=== PATIENT | male | born 1975 | race American Indian/Alaskan Native ===

== ENCOUNTER 2018-08-31 10:26 | Day surgery (SDC) | payer MEDICARE, MEDICAID, SELFPAY ==
[2018-08-31 10:27] VITALS: BP 126/77; PULSE 92; RESP 18; TEMP 36.6; O2SAT 99
--- NOTE | 2018-08-31 10:37 | DI.RAD_ITS ---
SYMPTOMS/DIAGNOSIS: HAND CAUGHT IN SNOWBLOWER RIGHT HAND: Three views. There is a comminuted nondisplaced fracture involving the distal aspect of the distal phalanx of the right index finger. There is a comminuted markedly displaced fracture involving the right middle finger. The fracture involves the head of the middle phalanx, which is nondisplaced. The fracture appears to extend into the distal interphalangeal joint and there is marked comminution and displacement of the osseous fragments of the distal phalanx. The fracture does appear to be open on the dorsal aspect of the distal finger. There is a comminuted fracture of the terminal tuft of the right ring finger. There is a question of an open component of the fracture on the dorsal aspect of the distal ring finger. There is soft tissue swelling of the index, middle and ring fingers. No other fractures or dislocations are appreciated. IMPRESSION: 1. Comminuted intraarticular fracture involving the middle phalanx and distal phalanx of the right middle finger. The fracture appears to be open. 2. Comminuted fracture involving the terminal tuft of the right ring finger with marked displacement. 3. Nondisplaced comminuted fracture of the terminal tuft of the right index finger.
--- NOTE | 2018-08-31 10:39 | ED.GENADUL_ITS ---
Discharge Plan Disposition Patient Disposition: OTHER Condition: Stable Discharge Details Chief Complaint: Laceration Clinical Impression: Open displaced fracture of distal phalanx of right middle finger Primary Care Provider: Brian Longo ED Provider: Jian Campuzano Home Meds and New Rx's Prescriptions: No Action nebulizer and compressor [Comp-Air Elite Comp Neb System] 1 EACH device 1 ea Miscellaneous q 4 h prn Qty: 1 RF: 0 sertraline 50 MG tablet 100 mg PO DAILY Qty: 180 RF: 3 atorvastatin 40 MG tablet 40 mg PO DAILY Qty: 90 RF: 3 pantoprazole 40 MG tablet,delayed release (DR/EC) 1 tab PO BID Qty: 180 RF: 3 ezetimibe [Zetia] 10 MG tablet 1 tab PO DAILY Qty: 90 RF: 3 albuterol sulfate 1.25 MG/3 ML solution for nebulization 1.25 mg Inhalation q 4 h PRNQty: 50 RF: 1 albuterol sulfate [ProAir HFA] 200 PUFF HFA aerosol inhaler 200 puff Inhalation Q6H PRN PRNQty: 1 RF: 0 budesonide-formoterol [Symbicort] 10.2 GM HFA aerosol inhaler 1 puff Inhalation BID Qty: 1 RF: 5 ipratropium-albuterol 3 ML solution for nebulization 1 vial PO Q4H PRNQty: 50 RF: 3 Medical Decision Making 43 yo male was using his snowblower cleaning the top when his right hand went into the spinning blades. He is in quite a bit of pain to perform thorough exam initially, will place digital block of the right middle and index fingers which are the only ones involved and get xray and reeval. pt has extensive injury distal to the pip joint of the ring and middle finger and can't move at the dip joint, has bone visible in both. Xray confirms fx. Will give ceftriaxone given pcn allergy don't woant to give first gen cephalosporin and consult ortho Dr. Schofield evaluated and plan to go to the OR for amputation and likely d/c after this Differential Diagnosis fracture, amputation HPI General Mode of arrival: EMS . Date/Time Provider Initiated Documentation: 08/31/18 10:37 . Limitations to Documentation: no limitations . Information obtained by: patient . History of Present Illness 43 year old M presents to the emergency department with the chief complaint of right hand pain s/p snowblower injury, described as severe, with intensity rated at 10. Quality is described as aching, and is localized to the right and upper extremity. Patient reports no radiation. Patient started experiencing this minute(s) (40) and it has been constant. No relieving factors improve symptom(s), No exacerbating factors reported . Patient notes no other symptoms.. Related Data Home Medications Medication Instructions Recorded Confirmed nebulizer and compressor [Comp-Air #1 ea 07/16/16 08/31/18 Elite Comp Neb System] sertraline 100 mg PO DAILY #180 tab-cap 08/10/17 08/31/18 atorvastatin 40 mg PO DAILY #90 tab-cap 10/07/17 08/31/18 ezetimibe [Zetia] 1 tab PO DAILY #90 tab-cap 10/07/17 08/31/18 pantoprazole 1 tab PO BID #180 tab-cap 10/07/17 08/31/18 albuterol sulfate 1.25 mg INHALATION q 4 h PRN #50 03/17/18 08/31/18 vial albuterol sulfate [Proair Hfa] 200 puff INHALATION Q6H PRN PRN #1 03/17/1808/31 inh budesonide-formoterol [Symbicort 1 puff INHALATION BID #1 inhaler 03/17/1808/31 80/4.5 Mcg Inhaler] ipratropium-albuterol 1 vial PO Q4H PRN #50 vial 03/19/18 08/31/18 Previous Rx's Medication Instructions Recorded sertraline 100 mg PO DAILY #180 tab-cap 08/10/17 atorvastatin 40 mg PO DAILY #90 tab-cap 10/07/17 ezetimibe [Zetia] 1 tab PO DAILY #90 tab-cap 10/07/17 pantoprazole 1 tab PO BID #180 tab-cap 10/07/17 budesonide-formoterol [Symbicort 1 puff INHALATION BID #1 inhaler 03/17/18 80/4.5 Mcg Inhaler] Allergies Allergy/AdvReac Type Severity Reaction Status Date / Time Fish Containing Products Allergy Intermediate hives Unverified 08/31/18 10:31 Penicillins Allergy Mild Skin Rash Unverified 08/31/18 10:31 aspirin AdvReac Intermediate epistaxis Unverified 08/31/18 10:31 seafood Allergy Intermediate Hives Uncoded 08/31/18 10:31 General Stated Complaint: Laceration DONG: 2 Review of Systems Review of Systems All systems reviewed & are unremarkable except as noted in HPI and below Constitutional Denies chills, Denies fever(s) and Denies weakness ENT Denies change in voice Cardiovascular Denies chest pain and Denies dyspnea Respiratory Denies dyspnea Gastrointestinal Denies abdominal pain, Denies nausea and Denies vomiting Genitourinary Denies dysuria Musculoskeletal Denies joint swelling Integumentary/Breasts Denies rash Neurologic Denies weakness Allergic/Immunologic Denies urticaria PFSH Family History Father Alcohol abuse Essential hypertension Heart disease Neoplasm Cerebrovascular accident Mother Essential hypertension COPD (chronic obstructive pulmonary disease) Depression Hyperlipidemia Neoplasm Cerebrovascular accident Asthma SIBLING ADHD (attention deficit hyperactivity disorder) Sister No problems noted. Brother Essential hypertension Grandfather Diabetes Alcohol abuse Grandfather Brain tumor Cerebrovascular accident Grandmother Diabetes Grandmother Heart disease Neoplasm Cerebrovascular accident Family History Blood disorder Neoplasm Medical History Arthritis Asthma Depression with anxiety GERD (gastroesophageal reflux disease) Hyperlipidemia tobacco abuse Social History Smoking/Tobacco Use Status: Current every day Surgical History BARIUM SWALLOW Excision, Skin Mass Fracture, Closed Treatment NECK SURGERY Open Carpal Tunnel release SPINE SURGERY Exam Const General: no acute distress Orientation: alert [facility] Head: normal to inspection Ears: external ears normal General nose exam: external nose normal Mouth: moist mucous membranes Eyes General: appearance normal, both eyes and all related structures Neck Neck: normal visual inspection Resp Effort & Inspection: normal respiratory effort and able to speak in complete sentences Cardio Rate: regular rate Skin General skin exam: no rashes or lesions noted Neuro General: alert and oriented x3 Psych Mental Status: mental status grossly normal Course Vital Signs Temperature 36.6 C 08/31/18 10:27 Pulse 92 H 08/31/18 10:27 Respiratory Rate 18 08/31/18 10:27 Blood Pressure 126/77 08/31/18 10:27 Pulse Oximetry 99 08/31/18 10:27 Temperature 36.6 C 08/31/18 10:27 Temperature Source Temporal Artery Scan 08/31/18 10:27 Pulse 92 H 08/31/18 10:27 Respiratory Rate 18 08/31/18 10:27 Respiratory Effort Non-Labored 08/31/18 10:30 Blood Pressure 126/77 08/31/18 10:27 Blood Pressure Position Sitting 08/31/18 10:27 Pulse Oximetry 99 08/31/18 10:27 Oxygen Delivery Method Room Air 08/31/18 10:27 Oxygen Flow Rate 0 08/31/18 10:27 Pain Level 10 08/31/18 10:27
[2018-08-31] MEDS: fentaNYL 100 MCG/2 ML VIAL (10:40)
[2018-08-31 11:23] LABS: Abs Immature Grans 0.01 k/cumm (0.0-0.09); Absolute Basophil Count 0.01 k/cumm (0.0-0.2); Absolute Eosinophil Count 0.05 k/cumm (0.0-0.7); Absolute Lymphocyte Count 2.53 k/cumm (1.2-3.4); Absolute Monocyte Count 0.71 k/cumm (0.11-0.7); Absolute Neutrophil Count 1.94 k/cumm (1.2-6.7); Basophils % 0.2; HCT 45.3 % (40.0-50.0); HGB 15.2 g/dL (13.5-17.5); Immature Grans % 0.2; Lymphocytes % 48.2; Mean Corp. HGB Concentration 33.6 g/dL (32.0-36.0); Mean Corpuscular Hemoglobin 27.8 pg (27.0-33.0); Mean Corpuscular Volume 82.8 fL (80-95); Mean Platelet Volume 9.6 fL (8.0-11.0); Monocytes % 13.5; Neutrophils % 36.9; Platelet Count 187 x1000/uL (130-400); RBC 5.47 m/cumm (4.50-6.00); RBC Distribution Width 14.8 % (11.8-14.1); White Blood Cell Count 5.25 k/cumm (4.4-10.8)
[2018-08-31 11:34] LABS: ALT 41 U/L (12-78); AST 27 U/L (15-37); Albumin 3.6 g/dL (3.4-5.0); Alkaline Phosphatase 95 U/L (46-116); Anion Gap 6.5 mmol/L (3-11); BUN 9 mg/dL (7-18); CO2 29.5 mmol/L (21.0-32.0); CREATININE 0.85 mg/dL (0.70-1.30); Calcium 8.9 mg/dL (8.5-10.1); Chloride 103 mmol/L (98-107); Glucose 111 mg/dL (70-100); Potassium 3.9 mmol/L (3.5-5.1); Sodium 139 mmol/L (136-145); Total Protein 6.9 g/dL (6.4-8.2)
[2018-08-31 11:37] LABS: INR 1.1 (1.0-3.5); PTT Activated 24.1 sec (21.0-31.4); Prothrombin Time 10.4 sec (9.3-10.8)
[2018-08-31 13:15] VITALS: BP 111/46; PULSE 72; RESP 16; TEMP 36.9; O2SAT 94
[2018-08-31] MEDS: Normal Saline Flush 10 ML SYR ×3 (13:27→14:39)
[2018-08-31 13:31] VITALS: BP 111/51; PULSE 68; RESP 18; TEMP 37.4; O2SAT 95
[2018-08-31] MEDS: Lactated Ringers 1,000 ML 30 ML IV (13:45)
--- NOTE | 2018-08-31 14:01 | W.PM.DSUDISC ---
Discharge Plan Disposition Patient Disposition: HOME Condition: Stable Discharge Details Chief Complaint: Laceration Reason For Visit: Revision amputation of RRF and RMF Attending Provider: Arcenio Schofield Primary Care Provider: Brian Longo ED Provider: Jian Campuzano Home Meds and New Rx's Prescriptions: New ibuprofen 600 mg tablet 600 mg PO TID PRNQty: 90 RF: 3 acetaminophen 500 mg capsule 1,000 mg PO Q8H PRN (Reason: pain) Qty: 90 RF: 0 oxycodone 5 mg tablet 5 mg PO Q6H PRN PRNQty: 10 RF: 0 Continue nebulizer and compressor [Comp-Air Elite Comp Neb System] 1 EACH device 1 ea Miscellaneous q 4 h prn Qty: 1 RF: 0 sertraline 50 MG tablet 100 mg PO DAILY Qty: 180 RF: 3 atorvastatin 40 MG tablet 40 mg PO DAILY Qty: 90 RF: 3 pantoprazole 40 MG tablet,delayed release (DR/EC) 1 tab PO BID Qty: 180 RF: 3 ezetimibe [Zetia] 10 MG tablet 1 tab PO DAILY Qty: 90 RF: 3 albuterol sulfate 1.25 MG/3 ML solution for nebulization 1.25 mg Inhalation q 4 h PRNQty: 50 RF: 1 albuterol sulfate [ProAir HFA] 200 PUFF HFA aerosol inhaler 200 puff Inhalation Q6H PRN PRNQty: 1 RF: 0 budesonide-formoterol [Symbicort] 10.2 GM HFA aerosol inhaler 1 puff Inhalation BID Qty: 1 RF: 5 ipratropium-albuterol 3 ML solution for nebulization 1 vial PO Q4H PRNQty: 50 RF: 3 Discharge Instructions Additional Instructions: Activity: Keep the hand elevated as much as possible. You may use your other fingers but you should rest the operative fingers, middle and ring. Dressings: Keep the dressings clean and dry. Do NOT remove. Medications: - You should use Tylenol and Ibuprofen for baseline pain control. - You have Oxycodone for breakthrough pain. - You may use ice over the dressing, just do not get it wet. - Take Keflex 500mg four times a day for 2 days. 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
[2018-08-31] MEDS: Ketorolac 15 MG/ML VIAL IVP (14:27)
[2018-08-31] MEDS: Acetaminophen 500 MG TAB 1000 MG PO (14:28)
--- NOTE | 2018-08-31 15:48 | NUR.NOTE ---
Nursing Note: 1438 - vs 36.6, 100/49, 67, 15 94%, medicated w/4mg morphine 8/10 pain. Pt denies any nausea. Continue to monitor, callbell in reach and spouse present.
[2018-08-31] MEDS: Bupivacaine 0.25% Pres-Free 30 ML VIAL (16:37)
[2018-08-31 18:00] VITALS: BP 104/56; PULSE 71; RESP 18; TEMP 35.5; O2SAT 100
--- NOTE | 2018-09-01 07:30 | OCONE_ITS ---
Date of service: 08/31/18 Time of Service: 11:20 History of Present Illness Chief Complaint: Right ring finger and right middle finger injury Narrative: Cole is a 43-year-old who is operating a snowblower earlier today. 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 He had a complete laceration of both fingertips. Pain of the right index finger as well. He was seen in the emergency department and diagnosed with near complete amputations of the ring finger and middle finger along with a fracture of the distal phalanx of the index finger. I was called in consultation by Dr. Campuzano. He reports significant pain of the middle and ring fingers primarily and some pain of the distal aspect of the index finger. He is a heavy smoker. 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 He merely wash his hands after the incident. He denies having any gross contamination to the wounds. 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 It sometimes needs some basic splinting for short period time but otherwise can start gentle range of motion, obviously will be limited by the other fingers. As for the middle and ring fingers. I do not think they are truly salvageable. There is a small pedicle of the middle finger but there is a complex fracture of the middle phalanx. Given his smoking and his occupation I do not think it is a salvageable finger. I reviewed treatment options with Cole and he agrees he would prefer to proceed with revision amputation. I discussed the technical complications. I also discussed the approximate level of amputation. I reviewed the technical details including risk which were not limited to bleeding , infection, pain, stiffness, weakness. Despite these risk, he elects to proceed. He received a dose of antibodies here in the emergency room. He will also receive antibiotics after the surgery and on discharge. We will proceed to the operating room this afternoon. He will stay n.p.o. Review of Systems Review of Systems All systems reviewed & are unremarkable except as noted in HPI and below PFSH Family History Father Alcohol abuse Essential hypertension Heart disease Neoplasm Cerebrovascular accident Mother Essential hypertension COPD (chronic obstructive pulmonary disease) Depression Hyperlipidemia Neoplasm Cerebrovascular accident Asthma SIBLING ADHD (attention deficit hyperactivity disorder) Sister No problems noted. Brother Essential hypertension Grandfather Diabetes Alcohol abuse Grandfather Brain tumor Cerebrovascular accident Grandmother Diabetes Grandmother Heart disease Neoplasm Cerebrovascular accident Family History Blood disorder Neoplasm Medical History Arthritis Asthma Depression with anxiety GERD (gastroesophageal reflux disease) Hyperlipidemia tobacco abuse Social History Smoking/Tobacco Use Status: Current every day Surgical History BARIUM SWALLOW Excision, Skin Mass Fracture, Closed Treatment NECK SURGERY Open Carpal Tunnel release SPINE SURGERY Exam Narrative Exam Narrative: Evaluation of the right hand shows some ecchymosis to the tip of the index finger. There is pain to palpation but no deformity. The nail is intact. There is no subungual hematoma. Range of motion of the index finger is difficult to appreciate given the discomfort of the other 2 digits but there is active extension and flexion of the DIP joint of the index finger. Evaluation of the right middle finger shows a completely displaced distal aspect. There is obvious bone exposed. The distal aspect the finger is cut in multiple directions in a complex pattern involving both tendons as they are seen within the wound bed. There is a visible fracture of the head of the middle phalanx seen within the wound. There is a small pedicle over the radial side. It is difficult to appreciate any vascularity to the distal end of the finger. Examination is otherwise limited by pain. Evaluation the right ring finger shows a similar pattern except slightly more distal through the DIP zone. The nail is completely avulsed and the base of the distal phalanx is visible. The skin in this area is literally sheared off. There is no distal skin that looks viable with only small pedicle remaining of the attached stump. Results Last Vital Signs Temp 35.5 C L 08/31/18 18:00 Pulse 71 08/31/18 18:00 Resp 18 08/31/18 18:00 BP 104/56 L 08/31/18 18:00 Pulse Ox 100 08/31/18 18:00 Labs : 08/31/18 11:15 08/31/18 11:15 Laboratory Results - last 24 hr 08/31/18 08/31/18 08/31/18 11:15 11:15 11:15 WBC 5.25 RBC 5.47 Hgb 15.2 Hct 45.3 MCV 82.8 MCH 27.8 MCHC 33.6 RDW 14.8 H Plt Count 187 MPV 9.6 Immature Gran % 0.2 Neutrophils % 36.9 Lymphocytes % 48.2 Monocytes % 13.5 Eosinophils % 1.0 Basophils % 0.2 Absolute Neutrophils 1.94 Absolute Lymphocytes 2.53 Absolute Monocytes 0.71 H Absolute Eosinophils 0.05 Absolute Basophils 0.01 PT 10.4 INR 1.1 APTT 24.1 Sodium 139 Potassium 3.9 Chloride 103 Carbon Dioxide 29.5 Anion Gap 6.5 BUN 9 Creatinine 0.85 Estimated GFR/1.73 m2 >= 60.00 Glucose 111 H Calcium 8.9 Total Bilirubin 1.0 AST 27 ALT 41 Alkaline Phosphatase 95 Total Protein 6.9 Albumin 3.6 Imaging Additional studies: X-ray of the right hand shows a comminuted but nondisplaced fracture of the distal aspect of the distal phalanx of the index finger. There is a comminuted fracture of the distal phalanx of the ring finger and a comminuted and displaced fracture of the middle phalanx of the middle finger.
--- NOTE | 2018-09-01 10:20 | ROE_ITS ---
REPORT OF OPERATIVE PROCEDURE DATE OF PROCEDURE August 31, 2018 PREOPERATIVE DIAGNOSES Near complete traumatic amputation of the right ring finger and right middle finger. POSTOPERATIVE DIAGNOSES Near complete traumatic amputation of the right ring finger and right middle finger. SURGERY Completion amputation of the right ring finger and right middle finger. SURGEON Arcenio Schofield M.D. FINDINGS There was a comminuted fracture of the distal phalanx of the right ring finger. The amputation level was brought back to the base of the distal phalanx just proximal to the germinal matrix. There was ad equate palmar skin for closure. The middle phalanx had a comminuted fracture of the middle phalanx. T he amputation level was brought down to the level of the distal middle phalanx and covered. The dorsa l skin was somewhat tenuous, but appeared to be healthy and therefore it was used although it had a c omplex laceration into multiple pieces. ANESTHESIA MAC. ESTIMATED BLOOD LOSS 5 cc. COMPLICATIONS None. DISPOSITION The patient was awakened from anesthesia and taken to the PACU in stable condition. INDICATIONS FOR PROCEDURE Cole is a 43-year-old who unfortunately stuck his hand in a claims examiner while it was running. He i njured his right hand primarily above the middle finger and the ring finger with near complete amputa tions. He was evaluated in the Emergency Department and after a thorough evaluation, decided to proce ed with revision amputations. I did not think the ends of the fingers were salvageable, especially gi travis his age and smoking status and occupation. I reviewed the risks of the procedure with Cole to i nclude bleeding, infection, pain, stiffness, skin healing complications, nerve pain, weakness, need f or repeat procedures. Despite these risks, he elected to proceed. PROCEDURE Cole was greeted in the preoperative holding area. His identity was confirmed and the correct side was identified and marked. Consent was reviewed with the patient and signed. The history and physical was performed in the Emergency Department, and at the Same Day Surgery area. Complete history and ph ysical was also documented by True Andujar PA-C. He was then taken back to the Operating Room. Placed in the supine position. All bony prominences we re padded. The right arm was placed onto the hand table. A nonsterile tourniquet was placed high up o n the right arm. A MAC anesthetic was performed. Prophylactic antibiotics in the form of Cefazolin we re given. A timeout was performed for safe surgery. The right arm was then prepped with Betadine. A digital block was performed with 0.25% bupivacaine, b oth of the right ring finger and right middle finger. Once this had time to set up, the arm was then exsanguinated and by gravity the tourniquet was inflated where it stayed for 22 minutes. The ring fin donna was addressed first. There was an obvious exposed bone of the distal phalanx. The entire distal a spect of the finger had been ripped off, except for a very small piece of poor-looking tissue. Theref ore, I brought the amputation level back to the level of the proximal and distal phalanx just above t he phalange. This resected all the nail as well. All remaining nail tissue was removed sharply and al so with electrocautery. I left the palmar fat pad and used this to cover the end of the bone, suturin g it being able to approximate it to the dorsal skin without any tension. The wound was then thorough ly irrigated. Using a #4-0 Nylon, I reapproximated the palmar tissue to the dorsal tissue without any tension. Attention was then turned to the middle finger. This was a much more complex laceration pattern. The distal stump had a very small pedicle with the ulnar neurovascular bundle within it. However, the tis dana distal to this was torn in multiple pieces and tattered. There was no reasonable blood flow asses sed in the Emergency Department. Therefore, it was completed at this level, which was about to the DI P joint. The head of the middle phalanx was rotated and actually loose within the finger and fell out when completing this amputation. The skin was torn in a complex pattern. The palmar skin was slightl y better than the dorsal skin. Both the flexor and extensor tendons were already torn and these were left. I did shorten them so they were not sitting at the very end of the wound. I also found the nerv e and transected it shorter than the amputation level. I then thoroughly irrigated. I resected about another 4 mm of bone to hopefully decrease its prominence. A rasp was used to smooth the edges. I the n reapproximated the tissue in a patchwork-type fashion given that the dorsal skin was still torn in multiple positions. This allowed for good coverage. The skin on the dorsal side was tenuous, but it d id approximate without any tension. Using a series of 4-0 suture, I was able to reapproximate this ti ssue for an overall adequate looking stump. The wounds were then dressed with Xeroform. They were cov ered with 4x4s and a Kerlix wrap. The tourniquet was released at 22 minutes. At the end of the case, all counts were correct.
== END 2018-08-31 18:30 | disposition home or self-care (01) ==
LOC: ER 12:45 → DSU 13:09 → SUR 13:19
PROVIDERS: Emergency Provider Emergency Medicine; PCP Family Medicine; Visit Provider Student in an Organized Health Care Education/Training Program
PROC: (CPT 26951; principal; 2018-08-31 16:30)
DX: S68.622A 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, initial encounter (principal); S68.624A Partial traumatic transphalangeal amputation of right ring finger, initial encounter; S62.634B Displaced fracture of distal phalanx of right ring finger, initial encounter for open fracture; S62.622B Displaced fracture of middle phalanx of right middle finger, initial encounter for open fracture; W31.89XA Contact with other specified machinery, initial encounter
CPT/HCPCS: 26236; 26951; 36415; 80053; 90471; 96365; 96375; 96376; 99213; 99253; 99283; 99285; 73130; 85025; 85610; 85730; J0690; J0696; J1885; J2250; J2405; J3010; L3650

== ENCOUNTER 2018-09-02 14:55 | Emergency (ER) | payer MEDICARE, MEDICAID, SELFPAY ==
[2018-09-02 14:52] VITALS: BP 98/67; PULSE 78; RESP 18; TEMP 36.7; O2SAT 98
--- NOTE | 2018-09-02 14:59 | W.ED.GENAD ---
Discharge Plan Disposition Patient Disposition: HOME Condition: Good Discharge Details Chief Complaint: Orthopedic Clinical Impression: Closed fracture of phalanx of right index finger Reason For Visit: DENIA Primary Care Provider: Brian Longo ED Provider: Jian Campuzano Home Meds and New Rx's Prescriptions: Continue nebulizer and compressor [Comp-Air Elite Comp Neb System] 1 EACH device 1 ea Miscellaneous q 4 h prn Qty: 1 RF: 0 sertraline 50 MG tablet 100 mg PO DAILY Qty: 180 RF: 3 atorvastatin 40 MG tablet 40 mg PO DAILY Qty: 90 RF: 3 pantoprazole 40 MG tablet,delayed release (DR/EC) 1 tab PO BID Qty: 180 RF: 3 ezetimibe [Zetia] 10 MG tablet 1 tab PO DAILY Qty: 90 RF: 3 albuterol sulfate 1.25 MG/3 ML solution for nebulization 1.25 mg Inhalation q 4 h PRNQty: 50 RF: 1 albuterol sulfate [ProAir HFA] 200 PUFF HFA aerosol inhaler 200 puff Inhalation Q6H PRN PRNQty: 1 RF: 0 budesonide-formoterol [Symbicort] 10.2 GM HFA aerosol inhaler 1 puff Inhalation BID Qty: 1 RF: 5 ipratropium-albuterol 3 ML solution for nebulization 1 vial PO Q4H PRNQty: 50 RF: 3 ibuprofen 600 mg tablet 600 mg PO TID PRNQty: 90 RF: 3 acetaminophen 500 mg capsule 1,000 mg PO Q8H PRN (Reason: pain) Qty: 90 RF: 0 oxycodone 5 mg tablet 5 mg PO Q6H PRN PRNQty: 10 RF: 0 cephalexin 500 mg capsule 500 mg PO QID Qty: 8 RF: 0 Discharge Instructions Instructions: Finger Fracture (ED) Medical Decision Making pt seen here earlier this week after his right hand got stuck in snowblower, had to go to OR for amputation of distal middle and ring finger with ortho and had closed fx of index finger distally. He comes in today for throbbing distal pain of the distal finger and intermittent numbness. Has mild swelling, good color and pain with palpation and non numbness on exam at this time. Advised these are normal sensations after a fx and will have nurse place in splint. Wounds from amputation show no evidence of infection and he has no pain. He will f/u with ortho next week as scheduled Differential Diagnosis fracture, contusion HPI General Mode of arrival: EMS. Date/Time Provider Initiated Documentation: 09/02/18 14:59. Limitations to Documentation: no limitations. Information obtained by: patient. History of Present Illness 43 year old M presents to the emergency department with the chief complaint of right index finger throbbing, described as moderate, with intensity rated at 6. and is localized to the right and upper extremity. Patient reports no radiation. Patient started experiencing this day(s) (2) and it has been constant. No relieving factors improve symptom(s), No exacerbating factors reported . Patient did receive the following treatments prior to arrival, none Related Data Home Medications Medication Instructions Recorded Confirmed nebulizer and compressor [Comp-Air #1 ea 07/16/16 08/31/18 Elite Comp Neb System] sertraline 100 mg PO DAILY #180 tab-cap 08/10/17 08/31/18 atorvastatin 40 mg PO DAILY #90 tab-cap 10/07/17 08/31/18 ezetimibe [Zetia] 1 tab PO DAILY #90 tab-cap 10/07/17 08/31/18 pantoprazole 1 tab PO BID #180 tab-cap 10/07/17 08/31/18 albuterol sulfate 1.25 mg INHALATION q 4 h PRN #50 03/17/18 08/31/18 vial albuterol sulfate [ProAir HFA] 200 puff INHALATION Q6H PRN PRN #1 03/17/18 08/31/18 inh budesonide-formoterol [Symbicort] 1 puff INHALATION BID #1 inhaler 03/17/18 08/31/18 ipratropium-albuterol 1 vial PO Q4H PRN #50 vial 03/19/18 08/31/18 acetaminophen 1,000 mg PO Q8H PRN #90 cap 08/31/18 cephalexin 500 mg PO QID #8 cap 08/31/18 ibuprofen 600 mg PO TID PRN #90 tab 08/31/18 oxycodone 5 mg PO Q6H PRN PRN #10 tab 08/31/18 Previous Rx's Medication Instructions Recorded sertraline 100 mg PO DAILY #180 tab-cap 08/10/17 atorvastatin 40 mg PO DAILY #90 tab-cap 10/07/17 ezetimibe [Zetia] 1 tab PO DAILY #90 tab-cap 10/07/17 pantoprazole 1 tab PO BID #180 tab-cap 10/07/17 budesonide-formoterol [Symbicort] 1 puff INHALATION BID #1 inhaler 03/17/18 acetaminophen 1,000 mg PO Q8H PRN #90 cap 08/31/18 cephalexin 500 mg PO QID #8 cap 08/31/18 ibuprofen 600 mg PO TID PRN #90 tab 08/31/18 oxycodone 5 mg PO Q6H PRN PRN #10 tab 08/31/18 Allergies Allergy/AdvReac Type Severity Reaction Status Date / Time Fish Containing Products Allergy Intermediate hives Unverified 08/31/18 10:31 Penicillins Allergy Mild Skin Rash Unverified 08/31/18 10:31 aspirin AdvReac Intermediate epistaxis Unverified 08/31/18 10:31 seafood Allergy Intermediate Hives Uncoded 08/31/18 10:31 General Stated Complaint: Orthopedic DONG: 4 Review of Systems Review of Systems All systems reviewed & are unremarkable except as noted in HPI and below Constitutional Denies chills, Denies fever(s) and Denies weakness Eyes Denies loss of vision ENT Denies change in voice Cardiovascular Denies chest pain and Denies dyspnea Respiratory Denies dyspnea Gastrointestinal Denies abdominal pain, Denies nausea and Denies vomiting Genitourinary Denies dysuria Musculoskeletal Denies joint swelling Integumentary/Breasts Denies rash Neurologic Denies loss of vision and Denies weakness Psychiatric Denies depression Endocrine Denies cold intolerance and Denies heat intolerance Allergic/Immunologic Denies urticaria PFSH Family History Father Alcohol abuse Essential hypertension Heart disease Neoplasm Cerebrovascular accident Mother Essential hypertension COPD (chronic obstructive pulmonary disease) Depression Hyperlipidemia Neoplasm Cerebrovascular accident Asthma S[place] ADHD (attention deficit hyperactivity disorder) Sister No problems noted. Brother Essential hypertension Grandfather Diabetes Alcohol abuse Grandfather Brain tumor Cerebrovascular accident Grandmother Diabetes Grandmother Heart disease Neoplasm Cerebrovascular accident Family History Blood disorder Neoplasm Medical History Arthritis Asthma Depression with anxiety GERD (gastroesophageal reflux disease) Hyperlipidemia tobacco abuse Social History Smoking/Tobacco Use Status: Current every day Surgical History BARIUM SWALLOW Excision, Skin Mass Fracture, Closed Treatment NECK SURGERY Open Carpal Tunnel release SPINE SURGERY Exam Const General: no acute distress Orientation: alert HENMT Head: normal to inspection Ears: external ears normal General nose exam: external nose normal Mouth: moist mucous membranes Eyes General: appearance normal, both eyes and all related structures Neck Neck: normal visual inspection Resp Effort & Inspection: normal respiratory effort and able to speak in complete sentences Cardio Rate: regular rate Skin General skin exam: no rashes or lesions noted Neuro General: alert and oriented x3 Extrem General: normal capillary refill Psych Mental Status: mental status grossly normal Course Vital Signs Temperature 36.7 C 09/02/18 14:52 Pulse 78 09/02/18 14:52 Respiratory Rate 09/02/18 14:52 Blood Pressure 98/67 L 09/02/18 14:52 Pulse Oximetry 98 09/02/18 14:52 Temperature 36.7 C 09/02/18 14:52 Temperature Source Skin 09/02/18 14:52 Pulse 78 09/02/18 14:52 Respiratory Rate 18 09/02/18 14:52 Blood Pressure 98/67 L 09/02/18 14:52 Blood Pressure Position Sitting 09/02/18 14:52 Pulse Oximetry 98 09/02/18 14:52 Oxygen Delivery Method Room Air 09/02/18 14:52 Oxygen Flow Rate 0 09/02/18 14:52
[2018-09-02] MEDS: oxyCODONE 5 MG TAB 15 MG PO (15:09)
[2018-09-02 15:10] VITALS: BP 98/67; PULSE 78; RESP 18; TEMP 36.7; O2SAT 98
--- NOTE | 2018-09-02 15:12 | NUR.NOTE ---
Nursing Note: mental and foam splint applied to right pointer finger for a known fracture on Thursday.
== END 2018-09-02 15:15 | disposition home or self-care (01) ==
LOC: ER 15:18
PROVIDERS: Emergency Provider Emergency Medicine; PCP Family Medicine
DX: M79.644 Pain in right finger(s) (principal); S62.630A Displaced fracture of distal phalanx of right index finger, initial encounter for closed fracture; X58.XXXA Exposure to other specified factors, initial encounter
CPT/HCPCS: 99283

== ENCOUNTER → 2018-09-06 09:53 | Outpatient (BNVA) | payer MEDICARE, MEDICAID, SELFPAY | PROVIDERS: PCP Family Medicine; Referring Provider Family Medicine; Visit Provider Student in an Organized Health Care Education/Training Program | DX: S62.630D Displaced fracture of distal phalanx of right index finger, subsequent encounter for fracture with routine healing; S68.624D Partial traumatic transphalangeal amputation of right ring finger, subsequent encounter; S68.622D 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, subsequent encounter; W29.8XXD Contact with other powered hand tools and household machinery, subsequent encounter ==

== ENCOUNTER → 2018-09-13 13:58 | Outpatient (BNVA) | payer MEDICARE, MEDICAID, SELFPAY | PROVIDERS: PCP Family Medicine; Referring Provider Family Medicine; Visit Provider Student in an Organized Health Care Education/Training Program | DX: S68.624D Partial traumatic transphalangeal amputation of right ring finger, subsequent encounter (principal); S68.622D 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, subsequent encounter; S62.630D Displaced fracture of distal phalanx of right index finger, subsequent encounter for fracture with routine healing; W29.8XXD Contact with other powered hand tools and household machinery, subsequent encounter ==

== ENCOUNTER 2018-09-27 14:54 | Outpatient (CLI) | payer MEDICARE, MEDICAID, SELFPAY ==
--- NOTE | 2018-09-27 14:52 | DI.RAD_ITS ---
SYMPTOM/DIAGNOSIS: F/U RT INDEX DISTAL PHALANX FX RIGHT INDEX FINGER: Comparison is made with 31 Aug 2018. There has been no change in the alignment of the comminuted tuft fracture. There has been some interval healing compared with the previous exam.
== END 2018-09-27 15:14 ==
PROVIDERS: PCP Family Medicine; Referring Provider Family Medicine; Visit Provider Student in an Organized Health Care Education/Training Program
DX: S62.630D Displaced fracture of distal phalanx of right index finger, subsequent encounter for fracture with routine healing (principal); S68.624D Partial traumatic transphalangeal amputation of right ring finger, subsequent encounter; S68.622D 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, subsequent encounter; W29.8XXD Contact with other powered hand tools and household machinery, subsequent encounter
CPT/HCPCS: 73140

== ENCOUNTER 2018-10-05 10:43 | Outpatient (CLI) | payer MEDICARE, MEDICAID, SELFPAY ==
--- NOTE | 2018-10-05 14:55 | DI.RAD_ITS ---
SYMPTOM/DIAGNOSIS: NECK PAIN, CERVICALGIA, M54.2 CERVICAL SPINE: There is some reversal of the normal cervical lordosis. The patient is status post C 5-6 fusion, plate and screw device in place. There are severe degenerative changes at C 3-4 and C 4-5 levels with disc narrowing, discogenic sclerosis and hypertrophic spurring. Also posterior spurring is identified and is most advanced at C 4-5. There is flattening and sclerosis of the joints of Luschka. There is no evidence of gross foraminal compromise. Posterior spurring at the C 4-5 level is noted with the AP diameter of the neural canal measuring approximately 10 mm. which is the lower limits of normal suggesting spinal stenosis at this level. The posterior elements appear intact. Facet joint DJD is evident. The odontoid is intact. The prevertebral soft tissues are unremarkable. Incidentally the patient is edentulous. SUMMARY: Post surgical and degenerative changes as noted above. There is prominent posterior spurring at C 4-5 and if clinically warranted, further assessment with an MRI could be considered.
== END 2018-10-05 11:03 ==
PROVIDERS: PCP Family Medicine; Visit Provider Family Medicine
DX: M54.2 Cervicalgia (principal); M50.321 Other cervical disc degeneration at C4-C5 level; Z98.1 Arthrodesis status
CPT/HCPCS: 72052

== ENCOUNTER → 2018-10-20 14:24 | Outpatient (BNVA) | payer MEDICARE, MEDICAID, SELFPAY | PROVIDERS: PCP Family Medicine; Referring Provider Family Medicine; Visit Provider Student in an Organized Health Care Education/Training Program | DX: S68.622D 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, subsequent encounter (principal); S68.624D Partial traumatic transphalangeal amputation of right ring finger, subsequent encounter; W31.89XD Contact with other specified machinery, subsequent encounter ==

== ENCOUNTER 2018-12-20 16:04 | Outpatient (CLI) | payer MEDICARE, MEDICAID, SELFPAY ==
--- NOTE | 2018-12-20 16:01 | DI.RAD_ITS ---
SYMPTOM/DIAGNOSIS: F/U RT FINGER AMPUTATION RIGHT HAND: Comparison is made with right hand dated 08/31/18. A fracture through the tuft of the second finger shows non union and increased separation of the fracture fragments. There has been amputation at the mid portion of the middle phalanx of the third finger and amputation of the distal phalanx of the ring finger. An old healed fifth metacarpal fracture is also noted. 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 Amputations of the middle and ring fingers.
== END 2018-12-20 16:24 ==
PROVIDERS: PCP Family Medicine; Referring Provider Family Medicine; Visit Provider Student in an Organized Health Care Education/Training Program
DX: S62.630K Displaced fracture of distal phalanx of right index finger, subsequent encounter for fracture with nonunion (principal); S68.622D 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, subsequent encounter; S68.624D Partial traumatic transphalangeal amputation of right ring finger, subsequent encounter; W31.89XD Contact with other specified machinery, subsequent encounter
CPT/HCPCS: 99212; 99213; 73120

== ENCOUNTER 2018-12-21 11:57 | Day surgery (SDC) | payer MEDICARE, MEDICAID, SELFPAY ==
[2018-12-21 12:20] VITALS: BP 103/45; PULSE 72; RESP 16; TEMP 35.4; O2SAT 97
[2018-12-21] MEDS: Bupivacaine 0.25% Pres-Free 10 ML VIAL (13:21)
[2018-12-21] MEDS: Lidocaine 1% Multi-Dose 50 ML VIAL (13:22)
--- NOTE | 2018-12-21 13:43 | W.PM.DSUDISC ---
Discharge Plan Disposition Patient Disposition: HOME Condition: Good Discharge Details Reason For Visit: RRF PAINFUL STUMP Attending Provider: Arcenio Schofield Primary Care Provider: Brian Longo Home Meds and New Rx's Prescriptions: New ibuprofen 600 mg tablet 600 mg PO TID PRNQty: 30 RF: 3 Continued sertraline 50 mg tablet 100 mg PO DAILY Qty: 180 RF: 3 Comp-Air Elite Comp Neb System 1 EACH device 1 ea Miscellaneous q 4 h prn Qty: 1 RF: 0 atorvastatin 40 MG tablet 40 mg PO DAILY Qty: 90 RF: 3 ezetimibe [Zetia] 10 MG tablet 1 tab PO DAILY Qty: 90 RF: 3 albuterol sulfate 1.25 MG/3 ML solution for nebulization 1.25 mg Inhalation q 4 h PRNQty: 50 RF: 1 albuterol sulfate [ProAir HFA] 200 PUFF HFA aerosol inhaler 200 puff Inhalation Q6H PRN PRNQty: 1 RF: 0 Symbicort 10.2 GM HFA aerosol inhaler 1 puff Inhalation BID Qty: 1 RF: 5 ipratropium-albuterol 3 ML solution for nebulization 1 vial PO Q4H PRNQty: 50 RF: 3 pantoprazole 40 mg tablet,delayed release (DR/EC) 40 mg PO BID Qty: 180 RF: 3 ibuprofen 600 mg tablet 600 mg PO TID PRNQty: 90 RF: 3 acetaminophen 500 mg capsule 1,000 mg PO Q8H PRN (Reason: pain) Qty: 90 RF: 0 Discharge Instructions Additional Instructions: Activity: You should keep your hand/finger elevated for the first 2-3 days. You may move it as tolerated and use the hand for light-activity. However, no direct pressure to the end of the finger. No tight or forceful grasping. Keep clean and dry. Dressings: The operative dressing should stay on for 2 days. It may then be removed and covered with 2 bandaids. 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
--- NOTE | 2018-12-22 17:07 | ROE_ITS ---
DATE OF SURGERY: December 21, 2018 PREOPERATIVE DIAGNOSIS: Painful right ring finger amputation site with nail deformity. POSTOPERATIVE DIAGNOSIS: Same. SURGERY: Revision amputation of right ring finger. SURGEON: Arcenio Schofield M.D. ANESTHESIA: Local. FINDINGS: There was a dystrophic nail from the right ring finger. Revision amputation was performed through disarticulating the DIP joint. ESTIMATED BLOOD LOSS: Minimal. COMPLICATIONS: None. DISPOSITION: The patient was taken back to Same Day Surgery in a stable condition. INDICATION FOR PROCEDURE: Cole is a 43-year-old who stuck his right hand in a snowblower and suffe red an injury to his index finger, middle finger, and ring finger. He was treated initially with fra cture stabilization of the index finger and revision amputation of the ring finger and middle finger. He has gone on to progress well except for pain over the distal aspect of the right ring finger wit h the emergence of a dystrophic nail. I had seen him in clinic and we had tried various options for padding the finger, but he continued to have dysfunction and this dysmorphic nail which he would like to have removed. After failure of these conservative options, I did offer surgery. I reviewed the risks of the surgery to include continued pain, sensitivity, numbness, tingling, and coldness sensiti vity. Despite these risks, he elected to proceed. PROCEDURE DESCRIPTION: Cole was greeted in the preoperative holding area. His identity was confir med and the correct side was identified and marked. The consent was reviewed with the patient and si gnhakan. The History and Physical was updated. He was taken back to the Operating Room and place in a supine position. The right hand was placed on a hand table. Prophylactic antibiotics in the form of cefazolin were given. The right arm was then prepped with ChloraPrep and draped in a standard fashi on. A time-out was performed for safe surgery. A digital nerve block was performed with 1% lidocaine and next with 0.5% bupivacaine of the right rin g finger. After the anesthetic had fully set up, the finger was exsanguinated by compression and a P enrose drain was placed around the base of the finger where it stayed for 10 minutes. An elliptical incision was then made proximal to the nailfold, full thickness down to the bone. This removed all o f the nailbed and the dysmorphic nail. This was removed in whole. I then shelled out the distal pha lanx which was a very short segment. This was elevated subperiosteally to remove the distal phalanx in its entirely. This then provided a large flap of palmar tissue to come over the end. We had abun dant palmar tissue to bring over the edge without any tension. Relaxing incisions were made on each corner to remove any of the fishmouth deformity and this fishmouth area was excised for a smooth inci laura site. This was then irrigated thoroughly. It was closed with #5-0 nylon. The tourniquet was r eleased and there was no abundant bleeding. The finger was dressed with Xeroform, 4x4s, and Tubegauz dressing. He was then taken back to Same Day Surgery in stable condition.
== END 2018-12-21 14:12 | disposition home or self-care (01) ==
PROVIDERS: PCP Family Medicine; Visit Provider Student in an Organized Health Care Education/Training Program
PROC: (CPT 26951; principal; 2018-12-21 12:45)
DX: L60.8 Other nail disorders (principal); S68.62 Partial traumatic transphalangeal amputation of other and unspecified finger; X58.XXXS Exposure to other specified factors, sequela
CPT/HCPCS: 26236

== ENCOUNTER → 2018-12-27 13:00 | Outpatient (BNVA) | payer MEDICARE, MEDICAID, SELFPAY | PROVIDERS: PCP Family Medicine; Referring Provider Family Medicine; Visit Provider Student in an Organized Health Care Education/Training Program | DX: S68.624D Partial traumatic transphalangeal amputation of right ring finger, subsequent encounter (principal); W31.89XD Contact with other specified machinery, subsequent encounter ==

== ENCOUNTER 2019-01-03 17:19 | Emergency (ER) | payer MEDICARE, MEDICAID, SELFPAY ==
[2019-01-03 17:28] VITALS: BP 131/59; PULSE 78; RESP 18; TEMP 36.8; O2SAT 98
--- NOTE | 2019-01-03 17:34 | ED.GENADUL_ITS ---
Discharge Plan Disposition Patient Disposition: HOME Condition: Good Discharge Details Chief Complaint: Chest/Rib Clinical Impression: Chest pain, pleuritic, CAP (community acquired pneumonia) Reason For Visit: chest pain Primary Care Provider: Brian Longo ED Provider: Sarbjit Garces [place] Meds and New Rx's Prescriptions: New doxycycline hyclate 100 mg tablet 100 mg PO BID Qty: 14 RF: 0 hydrocodone-homatropine 5-1.5 mg/5 mL syrup 5 ml PO Q6H PRN (Reason: cough/pain) Qty: 100 RF: 0 Continued sertraline 50 mg tablet 100 mg PO DAILY Qty: 180 RF: 3 Comp-Air Elite Comp Neb System 1 EACH device 1 ea Miscellaneous q 4 h prn Qty: 1 RF: 0 atorvastatin 40 MG tablet 40 mg PO DAILY Qty: 90 RF: 3 ezetimibe [Zetia] 10 MG tablet 1 tab PO DAILY Qty: 90 RF: 3 albuterol sulfate 1.25 MG/3 ML solution for nebulization 1.25 mg Inhalation q 4 h PRNQty: 50 RF: 1 albuterol sulfate [ProAir HFA] 200 PUFF HFA aerosol inhaler 200 puff Inhalation Q6H PRN PRNQty: 1 RF: 0 Symbicort 10.2 GM HFA aerosol inhaler 1 puff Inhalation BID Qty: 1 RF: 5 ipratropium-albuterol 3 ML solution for nebulization 1 vial PO Q4H PRNQty: 50 RF: 3 pantoprazole 40 mg tablet,delayed release (DR/EC) 40 mg PO BID Qty: 180 RF: 3 ibuprofen 600 mg tablet 600 mg PO TID PRNQty: 90 RF: 3 acetaminophen 500 mg capsule 1,000 mg PO Q8H PRN (Reason: pain) Qty: 90 RF: 0 Discharge Instructions Instructions: Community Acquired Pneumonia (ED) Additional Instructions: Please take antibiotic as directed. You may use the cough medicine to help with cough and pain every 6 hours. You should use your inhalers to keep your lungs clear. You may use ibuprofen or acetaminophen to help with pain as well. Please follow-up with your primary care Thursday as planned. Return to ED for high fever, increasing shortness of breath, new or worsening pain, abdominal pain, other concerns. Stand Alone Forms: Work Release Referrals: Brian Longo. [Primary Care Provider] - Medical Decision Making Patient presenting with right sided pleuritic pain that is located in the lower anterior/lateral ribs. He is very tender to touch in that area. His abdomen is completely benign. He is splinting. However, he is not tachycardic. His saturations are okay. I do hear breath sounds. He is reporting having the pain prior to being head butted by the cow. It has just got worse. He is reporting a change in sputum color from whitish clear to now brown. We will place an IV and plan CTA of the chest to rule out pulmonary embolus though this seems not likely. However, he has significant discomfort. EKG shows nothing acute. Doubt that this is cardiac but we will check a troponin as he has had days of pain. Will check his other labs as well. We will give Toradol and fluids. Laboratory studies are unremarkable. White count is normal. Chemistries and liver function normal. Troponin negative. CT scan is negative for pulmonary embolus. There is evidence of bilateral lower lobe opacities, atelectasis versus infiltrate. May be atelectasis because of all the splinting. However, he is reporting subjective fevers and chills with a change in sputum color. He is a smoker. I think it reasonable to go ahead and start him on antibiotic for possible pneumonia. He states the Toradol did not help with his pain. I will give him 4 mg of morphine. Patient has received doxycycline. Morphine has helped his pain. I did review him in the [place] prescription monitoring site. He does not have chronic prescriptions for pain meds. He had a couple prescriptions back in August. He had one recently status post amputation of fingertip. I am going to prescribe Hycodan which should help with his cough and his pain. State sheet regarding opiates given. Consent form signed. He already has a follow-up appointment coincidently scheduled for Thursday morning. Return to ED for mental status changes, increasing shortness of breath, worsening pain, other concerns. Lab Data Lab results reviewed: Yes I reviewed the patient's lab results. ECG Data Attestation: I personally reviewed and interpreted this ECG (s) as follows: Prior ECG tracings: available for review Interpretation: Sinus rhythm at 64. Normal axis and intervals. Nonspecific ST changes that are unchanged from EKG of 2016. There is nothing acute. HPI General Mode of arrival: ambulatory . Date/Time Provider Initiated Documentation: 01/03/19 17:28 . Limitations to Documentation: no limitations . Information obtained by: patient . HPI Narrative: Patient presents to ED with right sided anterior lateral chest pain that has been present for a few days now. He noticed it late last week. Did not think much of it. He reports being head butted by a cow in that same general area about 3 days ago. Since then his pain has been getting worse. Today the pain is been severe. He has felt short of breath but it is unclear whether or not true dyspnea versus difficulty breathing because of pain. Pain does not radiate. It is worse with movement a nd breathing and coughing. He has had hot and cold spells but has not had documented fever. He has not had chills. He has a smoker's cough which has not changed, however, he is now productive of brown sputum which is new. He has no leg pain or leg swelling. He has no abdominal complaints. He has not taking anything for the pain. Related Data Home Medications Medication Instructions Recorded Confirmed Comp-Air Elite Comp Neb System #1 ea 07/16/16 12/27/18 atorvastatin 40 mg PO DAILY #90 tab-cap 10/07/17 01/03/19 ezetimibe [Zetia] 1 tab PO DAILY #90 tab-cap 10/07/17 01/03/19 Symbicort 1 puff INHALATION BID #1 inhaler 03/17/18 01/03/19 albuterol sulfate 1.25 mg INHALATION q 4 h PRN #50 03/17/18 01/03/19 vial albuterol sulfate [ProAir HFA] 200 puff INHALATION Q6H PRN PRN #1 03/17/18 01/03/19 inh ipratropium-albuterol 1 vial PO Q4H PRN #50 vial 03/19/18 01/03/19 acetaminophen 1,000 mg PO Q8H PRN #90 cap 08/31/18 01/03/19 ibuprofen 600 mg PO TID PRN #90 tab 08/31/18 01/03/19 sertraline 50 mg tablet 100 mg PO DAILY #180 tab-cap 09/30/18 01/03/19 pantoprazole 40 mg tablet,delayed 40 mg PO BID #180 tab-cap 11/17/18 01/03/19 release doxycycline hyclate 100 mg PO BID #14 tab 01/03/19 hydrocodone-homatropine 5 ml PO Q6H PRN #100 ml 01/03/19 Previous Rx's Medication Instructions Recorded atorvastatin 40 mg PO DAILY #90 tab-cap 10/07/17 ezetimibe [Zetia] 1 tab PO DAILY #90 tab-cap 10/07/17 Symbicort 1 puff INHALATION BID #1 inhaler 03/17/18 acetaminophen 1,000 mg PO Q8H PRN #90 cap 08/31/18 ibuprofen 600 mg PO TID PRN #90 tab 08/31/18 sertraline 50 mg tablet 100 mg PO DAILY #180 tab-cap 09/30/18 pantoprazole 40 mg tablet,delayed 40 mg PO BID #180 tab-cap 11/17/18 release doxycycline hyclate 100 mg PO BID #14 tab 01/03/19 hydrocodone-homatropine 5 ml PO Q6H PRN #100 ml 01/03/19 Allergies Allergy/AdvReac Type Severity Reaction Status Date / Time Fish Containing Products Allergy Intermediate hives Verified 01/03/19 17:36 Penicillins Allergy Mild Skin Rash Verified 01/03/19 17:36 aspirin AdvReac Intermediate epistaxis Verified 01/03/19 17:36 seafood Allergy Intermediate Hives Uncoded 01/03/19 17:36 General DONG: 4 Review of Systems Constitutional Denies chills, Denies fever(s), Denies headache(s), Denies lethargy and Denies weakness Eyes Denies change in vision and Denies eye pain ENT Denies otalgia, Denies facial pain, Denies headache(s) and Denies neck pain Cardiovascular Reports chest pain, Denies diaphoresis, Denies syncope, Denies edema and Reports dyspnea Respiratory Reports change in phlegm color, Reports cough, Reports pain on inspiration, Reports pain with cough and Reports dyspnea Gastrointestinal Denies abdominal pain, Denies diarrhea, Denies nausea and Denies vomiting Genitourinary Denies dysuria and Denies flank pain Musculoskeletal Denies back pain, Denies neck pain, Denies numbness and Denies tingling Integumentary/Breasts Denies rash Neurologic Denies confusion, Denies syncope, Denies headache(s), Denies focal weakness, Denies numbness, Denies tingling, Denies paresthesias and Denies weakness Psychiatric Denies confusion [facility] Medical History Arthritis (Chronic) Asthma (Chronic) Depression with anxiety (Chronic) GERD (gastroesophageal reflux disease) (Chronic) Hyperlipidemia (Chronic) tobacco abuse (Chronic) Surgical History Excision, Skin Mass (Inactive) Fracture, Closed Treatment (Inactive) NECK SURGERY (Inactive) Open Carpal Tunnel release (Inactive) Social History Smoking/Tobacco Use Status: Current every day Tobacco Type: cigarettes Smoking cigarettes per day: 30 Alcohol Intake: never Drug use: Never Substance use type: does not use Do you feel safe at home: Yes Do you feel safe in your relationship?: Yes Exam Const General: cooperative, uncomfortable and no acute distress Orientation: alert and oriented x3 HENMT Head: normocephalic and atraumatic Face and sinus: normal facial exam Neck Neck: trachea midline and supple Chest Chest: tenderness rib (lower lateral/anterior on right) Resp Other: Patient is definitely splinting. He will not take a deep breath. I do not appreciate wheezing or rhonchi. He does have breath sounds bilaterally. Cardio Rate: regular rate Rhythm: regular rhythm Heart Sounds: S1 normal and S2 normal GI Palpation: soft, not firm and nontender Skin Rashes: no rashes Neuro General: alert, oriented x3, no focal motor deficits and CN's II-XI intact bilaterally Extrem General: no clubbing, cyanosis or edema, no pedal edema and no calf tenderness
--- NOTE | 2019-01-03 17:39 | DI.RAD_ITS ---
SYMPTOM/DIAGNOSIS: RIGHT SIDE PLEURITIC CHEST PAIN CHEST PE CTA: CT angiography was performed with multi slice acquisition and multi planar and 3D reconstruction. With intravenous administration of 100 cc Omnipaque 350. There is no evidence of PE. The aorta is unremarkable with nothing to suggest an aneurysm, dissection or leak. Mild densities in the lower lobes could represent atelectasis or an acute pneumonitis. Note is made of a 3.5 mm pleural based nodule in the right lower lobe. The heart is not enlarged. There is no evidence of RV strain. There is no pericardial or pleural effusion. No acute bony abnormality is seen. The soft tissues are unremarkable. SUMMARY: No evidence of pulmonary embolic disease. No evidence of an aortic aneurysm or dissection.
[2019-01-03] MEDS: Ketorolac 30 MG/ML VIAL IVP (18:10)
[2019-01-03] MEDS: Normal Saline 1,000 ML 1000 ML IV (18:10)
[2019-01-03 18:14] LABS: Abs Immature Grans 0.01 k/cumm (0.0-0.09); Absolute Basophil Count 0.01 k/cumm (0.0-0.2); Absolute Eosinophil Count 0.07 k/cumm (0.0-0.7); Absolute Lymphocyte Count 3.67 k/cumm (1.2-3.4); Absolute Monocyte Count 0.51 k/cumm (0.11-0.7); Absolute Neutrophil Count 3.77 k/cumm (1.2-6.7); Basophils % 0.1; Eosinophils % 0.9; HCT 44.3 % (40.0-50.0); HGB 14.8 g/dL (13.5-17.5); Immature Grans % 0.1; Lymphocytes % 45.6; Mean Corp. HGB Concentration 33.4 g/dL (32.0-36.0); Mean Corpuscular Hemoglobin 27.6 pg (27.0-33.0); Mean Corpuscular Volume 82.5 fL (80-95); Mean Platelet Volume 9.6 fL (8.0-11.0); Monocytes % 6.3; Platelet Count 185 x1000/uL (130-400); RBC 5.37 m/cumm (4.50-6.00); RBC Distribution Width 14.9 % (11.8-14.1); White Blood Cell Count 8.04 k/cumm (4.4-10.8)
[2019-01-03 18:31] LABS: ALT 18 U/L (12-78); AST 18 U/L (15-37); Albumin 3.9 g/dL (3.4-5.0); Alkaline Phosphatase 85 U/L (46-116); Anion Gap 8.7 mmol/L (3-11); BUN 11 mg/dL (7-18); CO2 27.3 mmol/L (21.0-32.0); CREATININE 0.83 mg/dL (0.70-1.30); Calcium 8.9 mg/dL (8.5-10.1); Chloride 102 mmol/L (98-107); Glucose 85 mg/dL (70-100); Potassium 3.5 mmol/L (3.5-5.1); Sodium 138 mmol/L (136-145); Total Protein 7.1 g/dL (6.4-8.2)
[2019-01-03 18:36] LABS: Troponin I < 0.02 ng/mL (0.00-0.06)
[2019-01-03] MEDS: Omnipaque 350 MG/ML 100 ML BTL IJ (18:43)
--- NOTE | 2019-01-03 19:18 | DI.VRAD_ITS ---
EXAM: CT Angiography Chest With Contrast EXAM DATE/TIME: 01/03/2019 5:41 PM CLINICAL HISTORY: 43 years old, male; Pain; Pleuordynia TECHNIQUE: Axial computed tomographic angiography images of the chest with intravenous contrast using CT angiography protocol. Coronal and sagittal reformatted images were created and reviewed. MIP reconstructed images were created and reviewed. COMPARISON: CR CHEST 2 VIEWS PA,LAT 07/14/2016 8:36 PM FINDINGS: Pulmonary arteries: No evidence of pulmonary embolus to the segmental level. Aorta: No aneurysm of the aorta. No dissection of the aorta. Lungs: Mild opacities in the lower lobes may represent atelectasis or pneumonia. 3.5 mm pleural-based nodule in the right lower lobe Pleural space: Normal. No pneumothorax. No pleural effusion. Heart: Normal. No cardiomegaly. No pericardial effusion. Lymph nodes: Small nodes in both axillae Bones/joints: Unremarkable. No acute fracture. Soft tissues: Unremarkable. IMPRESSION: 1. No evidence of pulmonary embolus to the segmental level. 2. No aneurysm of the aorta. 3. No dissection of the aorta. 4. Mild opacities in the lower lobes may represent atelectasis or pneumonia. Dictated and Authenticated by: Mary Jane Valdivia MD. Ordering:ANILA Schaffer MD
[2019-01-03] MEDS: Doxycycline Hyclate 100 MG CAP PO (20:10)
[2019-01-03 20:52] VITALS: PULSE 86; TEMP 36.8; O2SAT 98
[2019-01-03 21:23] VITALS: BP 106/50
== END 2019-01-03 21:25 | disposition home or self-care (01) ==
PROVIDERS: Emergency Provider Emergency Medicine; PCP Family Medicine
DX: R07.81 Pleurodynia (principal); J18.9 Pneumonia, unspecified organism
CPT/HCPCS: 36415; 71275; 80053; 93005; 96361; 96374; 96375; 99285; 83735; 84484; 85025; 93010; J1885; J3490

== ENCOUNTER 2019-07-01 07:17 | Emergency (ER) | payer MEDICARE, MEDICAID, SELFPAY ==
[2019-07-01 07:23] VITALS: BP 117/60; PULSE 82; RESP 16; TEMP 36.6; O2SAT 98
--- NOTE | 2019-07-01 07:42 | W.ED.GENAD ---
Discharge Plan Disposition Patient Disposition: HOME Condition: Good Discharge Details Chief Complaint: AnimalBite Clinical Impression: Cat bite, Cellulitis Primary Care Provider: Brian Longo ED Provider: Kun Gerard Home Meds and New Rx's Prescriptions: New doxycycline hyclate 100 mg tablet 100 mg PO BID 10 Days Qty: 20 RF: 0 No Action mometasone 0.1 % cream 1 applic TP DAILY PRN (Reason: skin irritation) Qty: 45 RF: 1 bupropion HCl 150 mg tablet sustained-release 12 hr 150 mg PO BID Qty: 60 RF: 5 sertraline 50 mg tablet 50 mg PO DAILY Qty: 90 RF: 3 atorvastatin 40 mg tablet 40 mg PO DAILY Qty: 90 RF: 3 albuterol sulfate 1.25 mg/3 mL solution for nebulization 1.25 mg Inhalation q 4 h PRN (Reason: bronchospasm) Qty: 50 RF: 2 Symbicort 80-4.5 mcg/actuation HFA aerosol inhaler 1 puff Inhalation BID Qty: 1 RF: 11 ipratropium-albuterol 0.5 mg-3 mg(2.5 mg base)/3 mL solution for nebulization 3 ml PO Q4H PRN (Reason: shortness of breath) Qty: 50 RF: 1 (DME) Comp-Air Elite Comp Neb System 1 EACH device 1 ea Miscellaneous q 4 h prn Qty: 1 RF: 0 pantoprazole 40 mg tablet,delayed release (DR/EC) 40 mg PO BID Qty: 180 RF: 3 albuterol sulfate [ProAir HFA] 90 mcg/actuation HFA aerosol inhaler 200 puff Inhalation Q6H PRN PRN (Reason: bronchospasm) Qty: 1 RF: 3 ezetimibe [Zetia] 10 mg tablet 10 mg PO DAILY Qty: 90 RF: 3 ibuprofen 600 mg tablet 600 mg PO TID PRNQty: 90 RF: 3 acetaminophen 500 mg capsule 1,000 mg PO Q8H PRN (Reason: pain) Qty: 90 RF: 0 Discharge Instructions Instructions: Animal Bite (ED) Additional Instructions: You have been bitten by a cat, there is concern for potential infection. Please take the doxycycline as directed. Do not miss any doses. Do not drink or eat any dairy products while taking this medication as it can decrease the absorption of the antibiotic. Since the rabies status is unknown you have elected to go ahead with the rabies vaccination and immunoglobulin administration. You have received the first dose today, please return here to the infusion center on the , the , the , and finally on July 29 for your final dose. If you notice spreading of the redness, worsening pain, fever, chills please return immediately for reassessment of your hand. If you notice any worsening of your symptoms, or any new symptoms such as vomiting, diarrhea, fever, chills, shortness of breath, chest pain, numbness, weakness, or fainting , please return immediately to the emergency department for reevaluation. Please follow up with your primary care provider as soon as possible for reassessment and reevaluation. As always, it was a pleasure participating in your medical care today. Referrals: Brian Longo [Primary Care Provider] - Discharge Data Discharge Date/Time-TO BE ENTERED AT DEPARTURE: 07/01/19 08:32 Medical Decision Making This is a pleasant 43-year-old male who presents today for evaluation of a cat bite that occurred yesterday. He is recently neighbor's cat was left in his care, while he was moving From place to place in a box the cat tried to escape he put his hand in the way and bit his left thenar eminence. He is right-hand dominant. Since then he has had a mild amount of redness in his left thenar eminence, scratch on the right hand has been unremarkable. No fever or chills. Mild tenderness on palpation of the affected area, however no clinical evidence of flexor or extensor tenosynovitis at this time. No significant pain with passive or active range of motion for the thumb. Thumb is in the normal position, with no secondary flexion or extension at baseline. No fever or chills, vital signs stable. Tetanus is up-to-date. Patient has a notable allergy to penicillins. We will start the patient on doxycycline at this time. Unsure of the cats rabies vaccine status. We had a very long discussion with the patient and his family member at bedside regarding the risks, benefits, potential and allowance for delay for rabies vaccine over the course of 6 to 7 days. Understanding the risks and benefits, the patient is requesting to have the rabies vaccination and immunoglobulin at this time. We will give the first rabies vaccine in the right shoulder, the immunoglobulin in the left hand and left shoulder. We will schedule for follow-up at the infusion center, with the time vaccination treatments. Patient states that he will still go ahead and look for the rabies status for the cat, but is unsure if he will be able to find it. With no clinical evidence of sepsis, flexor tenosynovitis or extensor tenosynovitis, severe cellulitis with abscess, or other abnormality I feel he can be safely discharged home after receiving the first dose of antibiotics and rabies treatment here. We discussed red flags which to immediately return the importance of close and prompt regular follow-up. As well as the importance of wound checks. I have extensively reviewed the treatment plan and discharge instructions with the patient and their family. I have addressed all patient concerns at this time. The patient and family was made aware of what symptoms to monitor for that would warrant a return to the emergency department. Discussed the plan with the patient and family, they demonstrate verbal understanding and agreement with our assessment and plan at this time. HPI General Date/Time Provider Initiated Documentation: 07/01/19 07:22. HPI Narrative: This is a pleasant 43-year-old male with a past medical history of asthma depression GERD hyperlipidemia who presents today for evaluation of Bite. Patient states that he was given the care of his neighbor's cat, he and police were trying to get the house cat into a box, after the cat was in the box it tried to get out he put his hand in the way and the cat bit onto his left thenar eminence. He is right-hand dominant. This was yesterday. Since then he has noticed mild swelling redness and tenderness around the thenar eminence of the thumb. He denies fever or chills. He does admit to a small scratch on his right hand, but this is been benign. His tetanus is up-to-date, however he is not sure of the vaccination status of the cat including rabies status. He states the cat is always acted normal and is been acting normally ever since the initial event. Patient denies any fever, chills, forearm pain, severe pain with passive movement of the thumb, numbness tingling or weakness. He denies any other complaints at this time. 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 Related Data Home Medications Medication Instructions Recorded Confirmed Comp-Air Elite Comp Neb System #1 ea 07/16/16 03/23/19 acetaminophen 1,000 mg PO Q8H PRN #90 cap 08/31/18 03/23/19 ibuprofen 600 mg PO TID PRN #90 tab 08/31/18 03/23/19 pantoprazole 40 mg tablet,delayed 40 mg PO BID #180 tab-cap 11/17/18 03/23/19 release albuterol sulfate 90 mcg/actuation 200 puff INHALATION Q6H PRN PRN #1 02/09/19 03/23/19 aerosol inhaler inh ezetimibe 10 mg tablet 10 mg PO DAILY #90 tab-cap 03/22/19 03/23/19 albuterol sulfate 1.25 mg/3 mL 1.25 mg INHALATION q 4 h PRN #50 03/23/19 03/23/19 solution for nebulization vial atorvastatin 40 mg tablet 40 mg PO DAILY #90 tab-cap 03/23/19 03/23/19 budesonide-formoterol HFA 80 1 puff INHALATION BID #1 inhaler 03/23/19 03/23/19 mcg-4.5 mcg/actuation aerosol inhaler bupropion HCl 150 mg tablet,12 hr 150 mg PO BID #60 tab 03/23/19 03/23/19 sustained-release ipratropium-albuterol 0.5 mg-3 3 ml PO Q4H PRN #50 vial 03/23/19 03/23/19 mg(2.5 mg base)/3 mL nebulization soln sertraline 50 mg tablet 50 mg PO DAILY #90 tab 03/23/19 03/23/19 mometasone 0.1 % topical cream 1 applic TP DAILY PRN #45 gm 06/01/19 06/01/19 doxycycline hyclate 100 mg PO BID 10 Days #20 tab 07/01/19 Previous Rx's Medication Instructions Recorded acetaminophen 1,000 mg PO Q8H PRN #90 cap 08/31/18 ibuprofen 600 mg PO TID PRN #90 tab 08/31/18 pantoprazole 40 mg tablet,delayed 40 mg PO BID #180 tab-cap 11/17/18 release albuterol sulfate 90 mcg/actuation 200 puff INHALATION Q6H PRN PRN #1 02/09/19 aerosol inhaler inh ezetimibe 10 mg tablet 10 mg PO DAILY #90 tab-cap 03/22/19 albuterol sulfate 1.25 mg/3 mL 1.25 mg INHALATION q 4 h PRN #50 03/23/19 solution for nebulization vial atorvastatin 40 mg tablet 40 mg PO DAILY #90 tab-cap 03/23/19 budesonide-formoterol HFA 80 1 puff INHALATION BID #1 inhaler 03/23/19 mcg-4.5 mcg/actuation aerosol inhaler bupropion HCl 150 mg tablet,12 hr 150 mg PO BID #60 tab 03/23/19 sustained-release ipratropium-albuterol 0.5 mg-3 3 ml PO Q4H PRN #50 vial 03/23/19 mg(2.5 mg base)/3 mL nebulization soln sertraline 50 mg tablet 50 mg PO DAILY #90 tab 03/23/19 mometasone 0.1 % topical cream 1 applic TP DAILY PRN #45 gm 06/01/19 doxycycline hyclate 100 mg PO BID 10 Days #20 tab 07/01/19 Allergies Allergy/AdvReac Type Severity Reaction Status Date / Time Fish Containing Products Allergy Intermediate hives Verified 03/23/19 10:20 Penicillins Allergy Mild Skin Rash Verified 03/23/19 10:20 aspirin AdvReac Intermediate epistaxis Verified 03/23/19 10:20 seafood Allergy Intermediate Hives Uncoded 03/23/19 10:20 hydrocodone-homatropine AdvReac Intermediate GI UPSET Uncoded 03/23/19 10:20 General Stated Complaint: AnimalBite DONG: 4 Review of Systems Review of Systems ROS Unobtainable: All systems reviewed & are unremarkable except as noted in HPI and below PFSH Social History Smoking/Tobacco Use Status: Current every day Tobacco Type: cigarettes Alcohol Intake: never Drug use: Never Substance use type: does not use Do you feel safe at home: Yes Do you feel safe in your relationship?: Yes Exam Narrative Exam Narrative: 1.Const: Well-nourished, Well-developed, appearing stated age 2.Eyes: PERRL, no conjunctival injection, and symmetrical lids. 3.ENT: Atraumatic external nose and ears. Moist MM. Neck: Symmetric, trachea midline, No thyromegaly. 4.CVS: +S1/S2, No murmurs or gallops. Peripheral pulses 2+ and equal in all extremities. Brisk capillary refill in all extremities. 5.RESP: Unlabored respiratory effort. Clear to auscultation bilaterally. No wheezes rales or rhonchi 6.GI: Soft, Nontender/Nondistended, No hepatosplenomegaly. No guarding or rebound. 7.MSK: Normocephalic, Extremities w/o deformity aside for mild bite welch on the thenar eminence of the left thumb, as well as mild scratches on the right hand. No cyanosis or clubbing, Normal movement of all extremities. Left hand: Minimal redness over the thenar eminence. No drainage or discharge, no fluctuance or abscess. Bite welch appear to be notably superficial. Passive flexion and extension of the thumb elicits no significant pain, active flexion and extension of the thumb demonstrates no significant pain. Normal movement of all other fingers. No clinical evidence of flexor or extensor tenosynovitis. No red streaking traveling up the arm. No pain with movement of the wrist. Capillary refill brisk and normal. Normal sensation including two-point discrimination throughout. 8.Skin: Warm, Dry. 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 Sensation grossly intact, no focal neurologic deficits. 10.Psych: (AAO) x3. Appropriate mood and affect Course Vital Signs Vital signs: Vital Signs Temperature 36.6 C 07/01/19 07:23 Pulse 82 07/01/19 07:23 Respiratory Rate 16 07/01/19 07:23 Blood Pressure 117/60 07/01/19 07:23 Pulse Oximetry 98 07/01/19 07:23 Temperature 36.6 C 07/01/19 07:23 Pulse 82 07/01/19 07:23 Respiratory Rate 16 07/01/19 07:23 Respiratory Effort Non-Labored 07/01/19 07:26 Blood Pressure 117/60 07/01/19 07:23 Pulse Oximetry 98 07/01/19 07:23 Pain Level 8 07/01/19 07:23 Comment 07/01/19 07:23
[2019-07-01] MEDS: Rabies Immune Globulin 300 UNIT/ML VIAL 1542.22 UNIT IM (08:12)
--- NOTE | 2019-07-01 08:15 | NUR.NOTE ---
Called and left message on voice mail of [facility] Health Officer Alyson Romero [phone] asking her to please call back for animal bite information. Faxed form to [facility] Clerk Office.Nursing Note:
[2019-07-01] MEDS: Doxycycline Hyclate 100 MG CAP PO (08:25)
== END 2019-07-01 08:32 | disposition home or self-care (01) ==
PROVIDERS: Emergency Provider Student in an Organized Health Care Education/Training Program; PCP Family Medicine
DX: S61.452A Open bite of left hand, initial encounter (principal); W55.01XA Bitten by cat, initial encounter; L03.114 Cellulitis of left upper limb
CPT/HCPCS: 90471; 96372; 99284; 90675

== ENCOUNTER 2019-07-15 02:15 | Outpatient (RCR) | payer MEDICARE, MEDICAID, SELFPAY | END 2019-07-18 23:59 | disposition home or self-care (01) | LOC: INF 02:15 | PROVIDERS: PCP Family Medicine; Visit Provider Student in an Organized Health Care Education/Training Program | DX: Z20.3 Contact with and (suspected) exposure to rabies (principal) | CPT/HCPCS: 96372; 90675 ==

== ENCOUNTER 2019-07-20 15:45 | Emergency (ER) | payer MEDICARE, MEDICAID, SELFPAY ==
[2019-07-20] VITALS (45 sets, daily range): BP systolic 101–126; BP diastolic 45–89; PULSE 64–80; RESP 16–20; TEMP 36.7; O2SAT 90–98
--- NOTE | 2019-07-20 16:03 | ED.GENADUL_ITS ---
Discharge Plan Disposition Patient Disposition: HOME Condition: Good Discharge Details Chief Complaint: Abd Prob Clinical Impression: Incidental pulmonary nodule, Colitis Primary Care Provider: Brian Longo ED Provider: Kun Gerard Home Meds and New Rx's Prescriptions: New ciprofloxacin HCl [Cipro] 500 mg tablet 500 mg PO BID 10 Days Qty: 20 RF: 0 metronidazole [Flagyl] 500 mg tablet 500 mg PO TID 10 Days Qty: 30 RF: 0 No Action sertraline 50 mg tablet 50 mg PO DAILY Qty: 90 RF: 3 atorvastatin 40 mg tablet 40 mg PO DAILY Qty: 90 RF: 3 albuterol sulfate 1.25 mg/3 mL solution for nebulization 1.25 mg Inhalation q 4 h PRN (Reason: bronchospasm) Qty: 50 RF: 2 Symbicort 80-4.5 mcg/actuation HFA aerosol inhaler 1 puff Inhalation BID Qty: 1 RF: 11 ipratropium-albuterol 0.5 mg-3 mg(2.5 mg base)/3 mL solution for nebulization 3 ml PO Q4H PRN (Reason: shortness of breath) Qty: 50 RF: 1 (DME) Comp-Air Elite Comp Neb System 1 EACH device 1 ea Miscellaneous q 4 h prn Qty: 1 RF: 0 pantoprazole 40 mg tablet,delayed release (DR/EC) 40 mg PO BID Qty: 180 RF: 3 albuterol sulfate [ProAir HFA] 90 mcg/actuation HFA aerosol inhaler 200 puff Inhalation Q6H PRN PRN (Reason: bronchospasm) Qty: 1 RF: 3 ezetimibe [Zetia] 10 mg tablet 10 mg PO DAILY Qty: 90 RF: 3 naproxen sodium [Aleve] 220 mg Capsule 220 mg PO DAILY RF: 0 ibuprofen 600 mg tablet 600 mg PO TID PRNQty: 90 RF: 3 acetaminophen 500 mg capsule 1,000 mg PO Q8H PRN (Reason: pain) Qty: 90 RF: 0 Discharge Instructions Instructions: Pulmonary Nodules (ED), Colitis (ED) Additional Instructions: You have colitis. Please take the antibiotic as directed. Do not drink any alcohol while taking this antibiotic as it can cause a bad reaction. I am concerned that you also might have C. difficile colitis, and so it is extremely important that you bring a stool sample and as soon as possible. Please drink plenty of fluids. Take Tylenol and Motrin as needed for pain control. Additionally there were some incidental findings of small pulmonary nodules. Please follow-up closely with your primary care provider about this. You will need repeat imaging in 6 months for reassessment. If you notice any worsening of your symptoms, or any new symptoms such as vomiting, diarrhea, fever, chills, shortness of breath, chest pain, numbness, weakness, or fainting , please return immediately to the emergency department for reevaluation. Please follow up with your primary care provider as soon as possible for reassessment and reevaluation. As always, it was a pleasure participating in your medical care today. Stand Alone Forms: Work Release Referrals: Brian Longo. [Primary Care Provider] - Discharge Data Discharge Date/Time-TO BE ENTERED AT DEPARTURE: 07/20/19 21:17 Medical Decision Making This is a pleasant 44-year-old male with a past medical history of a IBS, asthmarecent cat bite, currently on his last dose of rabies vaccine, took a full course of doxycycline after the bite secondary to his notable penicillin allergy. He presents today for 3 days of worsening abdominal pain, and profuse watery diarrhea with only 1-2 bowel movements per day. Exam demonstrates a mildly distended abdomen, reduced bowel sounds, generalized tenderness throughout, nontender genital exam, heme-negative stool. Signs and symptoms were concerning for ileus, colitis, appendicitis, or infectious diarrhea. Laboratory work-up demonstrates no significant white count, bandemia, or left shift. Renal function normal, electrolytes normal, urinalysis shows no evidence of infection. CT scan shows evidence of mild acute infectious versus inflammatory colitis. Lactate is normal, the patient has no A. fib, and signs and symptoms are clinically inconsistent with mesenteric ischemia. During the patient's prolonged stay here in the emergency department he was not able to produce any stool sample. I does concern for infectious colitis we will start him on Cipro Flagyl. With no white count, no signs of severe illness he may not even need oral vancomycin if he does have C. difficile and would potentially be a candidate for chest metronidazole therapy. We have given him a lab slip, and recommended he come back with a stool sample as soon as he procures 1. Also of note the patient does demonstrate evidence of pulmonary nodules. I did have an extensive discussion with the patient and his significant other about this, and inform them of the importance of close follow-up with his primary care provider. Patient was given his first dose of IV Cipro Flagyl here, will be given oral Cipro Flagyl for home use. Discussed red flags for which to return, the importance of avoiding antimotility agents, and the importance of close follow-up. I have extensively reviewed the treatment plan and discharge instructions with the patient and their family. I have addressed all patient concerns at this time. The patient and family was made aware of what symptoms to monitor for that would warrant a return to the emergency department. Discussed the plan with the patient and family, they demonstrate verbal understanding and agreement with our assessment and plan at this time. FINDINGS: Lungs: There is subpleural atelectasis of the dependent portions of the lungs. There are some scattered sub-6 mm pulmonary nodules identified, nonspecific. For example, a 4 mm nodule is seen in the right lower lobe image 4 series 4. As another example, a 5 mm nodule is seen in the right middle lobe on image 1 series 4. No acute findings in the lung bases otherwise appreciated. Liver: Normal. No mass. Gallbladder and bile ducts: Normal. No calcified stones. No ductal dilation. Pancreas: There is diffuse, benign fatty infiltration of the pancreas. Spleen: Normal. No splenomegaly. Adrenals: Normal. No mass. Kidneys and ureters: Right renal double collecting system is appreciated. No acute renal findings. No obstructive uropathy. Stomach and bowel: There is submucosal fat deposition noted throughout the ascending colon and proximal transverse colon. This finding has been previously described as a sequela of prior infectious/inflammatory process or increased body fat content. However, there is also a small amount of pericolonic fat stranding appreciated in the ascending colon and cecum, raising concern for a superimposed acute colitis. No other segmental bowel wall thickening is appreciated. The small bowel appears grossly unremarkable. There is no evidence of bowel obstruction.The vasculature demonstrates diffuse mild atherosclerotic calcification. Appendix: No evidence of appendicitis. Intraperitoneal space: Unremarkable. No free air. No significant fluid collection. Vasculature: Unremarkable. No abdominal aortic aneurysm. Lymph nodes: Unremarkable. No enlarged lymph nodes. Bladder: Unremarkable as visualized. Reproductive: Unremarkable as visualized. Bones/joints: Prior lumbosacral spine fixation and laminectomies without acute complications. No acute abnormality or aggressive osseous lesion. Soft tissues: Small left fat-containing inguinal hernia is appreciated. IMPRESSION: 1. Findings in the cecum, ascending colon, and proximal transverse colon have been previously described as the sequela of prior infectious/inflammatory process or increased body fat content, however I am also concerned that there is a mild superimposed acute infectious/inflammatory colitis also present. No bowel obstruction is appreciated. No other acute abdominopelvic pathology seen. 2. Incidental findings as above. Of note, there are nonspecific scattered sub-6 mm pulmonary nodules at the lung bases. For patients at low risk (minimal or absent history of smoking and of other known risk factors), no routine follow-up is indicated. For patients at high risk (history of smoking or of other known risk factors), consider optional CT at 12 months. (Andree et al., Fleischner Society, 2017) Dictated and Authenticated by: Jeferson Wilkes MD. HPI General Date/Time Provider Initiated Documentation: 07/20/19 15:58 . HPI Narrative: This is a pleasant 43-year-old male with a past medical history of asthma depression GERD hyperlipidemia irritable bowel syndrome, who was recently bitten by a cat and is on his last dose of rabies vaccine, and had received a full course of recent antibiotics of doxycycline. He presents today for evaluation of diarrhea and abdominal pain. Patient states that for the last 3 d ays he has had generalized abdominal pain actually in the lower abdominal quadrants and is gradually been worsening. Is associated diarrhea is nonbloody and it is watery in nature. He describes it as peeing out my anus. He denies any vomiting or nausea. He denies any chest pain or shortness of breath. He denies any recent syncope or lightheadedness. He denies any previous abdominal surgeries. He has no other complaints at this time. Related Data Home Medications Medication Instructions Recorded Confirmed Comp-Air Elite Comp Neb System #1 ea 07/16/16 07/15/19 acetaminophen 1,000 mg PO Q8H PRN #90 cap 08/31/18 07/20/19 ibuprofen 600 mg PO TID PRN #90 tab 08/31/18 07/20/19 pantoprazole 40 mg tablet,delayed 40 mg PO BID #180 tab-cap 11/17/18 07/20/19 release albuterol sulfate 90 mcg/actuation 200 puff INHALATION Q6H PRN PRN #1 02/09/19 07/20/19 aerosol inhaler inh ezetimibe 10 mg tablet 10 mg PO DAILY #90 tab-cap 03/22/19 07/20/19 albuterol sulfate 1.25 mg/3 mL 1.25 mg INHALATION q 4 h PRN #50 03/23/19 07/20/19 solution for nebulization vial atorvastatin 40 mg tablet 40 mg PO DAILY #90 tab-cap 03/23/19 07/20/19 budesonide-formoterol HFA 80 1 puff INHALATION BID #1 inhaler 03/23/19 07/20/19 mcg-4.5 mcg/actuation aerosol inhaler ipratropium-albuterol 0.5 mg-3 3 ml PO Q4H PRN #50 vial 03/23/19 07/20/19 mg(2.5 mg base)/3 mL nebulization soln sertraline 50 mg tablet 50 mg PO DAILY #90 tab 03/23/19 07/20/19 ciprofloxacin HCl [Cipro] 500 mg PO BID 10 Days #20 tab 07/20/19 metronidazole [Flagyl] 500 mg PO TID 10 Days #30 tab 07/20/19 naproxen sodium [Aleve] 220 mg PO DAILY 07/20/19 07/20/19 Previous Rx's Medication Instructions Recorded acetaminophen 1,000 mg PO Q8H PRN #90 cap 08/31/18 ibuprofen 600 mg PO TID PRN #90 tab 08/31/18 pantoprazole 40 mg tablet,delayed 40 mg PO BID #180 tab-cap 11/17/18 release albuterol sulfate 90 mcg/actuation 200 puff INHALATION Q6H PRN PRN #1 02/09/19 aerosol inhaler inh ezetimibe 10 mg tablet 10 mg PO DAILY #90 tab-cap 03/22/19 albuterol sulfate 1.25 mg/3 mL 1.25 mg INHALATION q 4 h PRN #50 03/23/19 solution for nebulization vial atorvastatin 40 mg tablet 40 mg PO DAILY #90 tab-cap 03/23/19 budesonide-formoterol HFA 80 1 puff INHALATION BID #1 inhaler 03/23/19 mcg-4.5 mcg/actuation aerosol inhaler ipratropium-albuterol 0.5 mg-3 3 ml PO Q4H PRN #50 vial 03/23/19 mg(2.5 mg base)/3 mL nebulization soln sertraline 50 mg tablet 50 mg PO DAILY #90 tab 03/23/19 ciprofloxacin HCl [Cipro] 500 mg PO BID 10 Days #20 tab 07/20/19 metronidazole [Flagyl] 500 mg PO TID 10 Days #30 tab 07/20/19 Allergies Allergy/AdvReac Type Severity Reaction Status Date / Time Fish Containing Products Allergy Intermediate hives Verified 07/15/19 16:29 Penicillins Allergy Mild Skin Rash Verified 07/15/19 16:29 aspirin AdvReac Intermediate epistaxis Verified 07/15/19 16:29 seafood Allergy Intermediate Hives Uncoded 07/15/19 16:29 hydrocodone-homatropine AdvReac Intermediate GI UPSET Uncoded 07/15/19 16:29 General Stated Complaint: Abd Prob DONG: 3 Review of Systems Review of Systems ROS Unobtainable: All systems reviewed & are unremarkable except as noted in HPI and below PFSH Social History Smoking/Tobacco Use Status: Current every day Tobacco Type: cigarettes Alcohol Intake: never Drug use: Never Substance use type: does not use Do you feel safe at home: Yes Do you feel safe in your relationship?: Yes Exam Narrative Exam Narrative: 1.Const: Well-nourished, Well-developed, appearing stated age 2.Eyes: PERRL, no conjunctival injection, and symmetrical lids. 3.ENT: Atraumatic external nose and ears. dry MM. Neck: Symmetric, trachea midline, No thyromegaly. 4.CVS: +S1/S2, No murmurs or gallops. Peripheral pulses 2+ and equal in all extremities. Brisk capillary refill in all extremities. 5.RESP: Unlabored respiratory effort. Clear to auscultation bilaterally. No wheezes rales or rhonchi 6.GI: Soft, gaseous, minimally distended, bowel sounds present but reduced. Generalized tenderness throughout, more so in the lower abdominal quadrants. Normal male genital exam, no testicular tenderness. Normal cremasteric reflex. Rectal exam demonstrates heme-negative stool. Negative obturator and psoas sign. Negative heel strike test. 7.MSK: Normocephalic/Atraumatic, Extremities w/o deformity or ttp No cyanosis or clubbing, Normal movement of all extremities. Previous hand laceration site from the cat demonstrates clean dry and intact wounds, no evidence of significant cellulitis, erythema or warmth. 8.Skin: Warm, Dry. No rashes or lesions. 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 Sensation grossly intact, no focal neurologic deficits. 10.Psych: (AAO) x3. Appropriate mood and affect Course Vital Signs Vital signs: Vital Signs Temperature 36.7 C 07/20/19 15:51 Pulse 77 07/20/19 15:51 Respiratory Rate 20 07/20/19 15:51 Blood Pressure 125/59 L 07/20/19 15:51 Pulse Oximetry 90 L 07/20/19 15:51 Temperature 36.7 C 07/20/19 15:51 Temperature Source Temporal Artery Scan 07/20/19 15:51 Pulse 77 07/20/19 15:51 Respiratory Rate 20 07/20/19 15:51 Respiratory Effort Non-Labored 07/20/19 15:56 Blood Pressure 125/59 L 07/20/19 15:51 Blood Pressure Position Supine 07/20/19 15:51 Pulse Oximetry 90 L 07/20/19 15:51 Oxygen Delivery Method Room Air 07/20/19 15:51 Oxygen Flow Rate 0 07/20/19 15:51 Pain Level 10 07/20/19 15:51
[2019-07-20] MEDS: Normal Saline 1,000 ML 1000 ML IV (16:18)
[2019-07-20] MEDS: MORPHine 10 MG/ML VIAL 4 MG IVP (16:27)
[2019-07-20 16:31] LABS: Abs Immature Grans 0.04 k/cumm (0.0-0.09); Absolute Basophil Count 0.02 k/cumm (0.0-0.2); Absolute Eosinophil Count 0.09 k/cumm (0.0-0.7); Absolute Lymphocyte Count 3.51 k/cumm (1.2-3.4); Absolute Monocyte Count 0.66 k/cumm (0.11-0.7); Basophils % 0.2; Eosinophils % 0.8; HCT 44.6 % (40.0-50.0); HGB 15.2 g/dL (13.5-17.5); Immature Grans % 0.4; Lactate 1.2 mmol/L (0.6-1.4); Mean Corp. HGB Concentration 34.1 g/dL (32.0-36.0); Mean Corpuscular Volume 82.3 fL (80-95); Mean Platelet Volume 9.8 fL (8.0-11.0); Monocytes % 5.8; Neutrophils % 61.8; Platelet Count 226 x1000/uL (130-400); RBC 5.42 m/cumm (4.50-6.00); RBC Distribution Width 14.7 % (11.8-14.1); White Blood Cell Count 11.32 k/cumm (4.4-10.8)
[2019-07-20 16:46] LABS: PTT Activated 26.1 sec (21.0-31.4); Prothrombin Time 10.3 sec (9.3-11.0)
[2019-07-20 16:52] LABS: ALT 29 U/L (16-63); AST 19 U/L (15-37); Albumin 3.9 g/dL (3.4-5.0); Alkaline Phosphatase 110 U/L (46-116); Anion Gap 10.5 mmol/L (3-11); BUN 14 mg/dL (7-18); Bilirubin, Total 1.1 mg/dL (0.2-1.0); CO2 27.5 mmol/L (21.0-32.0); CREATININE 1.11 mg/dL (0.70-1.30); Calcium 9.1 mg/dL (8.5-10.1); Chloride 103 mmol/L (98-107); Glucose 93 mg/dL (70-100); Lipase 46 U/L (73-393); Potassium 3.7 mmol/L (3.5-5.1); Sodium 141 mmol/L (136-145); Total Protein 7.6 g/dL (6.4-8.2)
[2019-07-20] MEDS: Omnipaque 350 MG/ML 100 ML BTL IJ (17:09)
[2019-07-20] MEDS: Normal Saline Flush 10 ML SYR IVP (17:09)
--- NOTE | 2019-07-20 17:20 | DI.CT_ITS ---
EXAM: CT ABDOMEN PELVIS W CLINICAL HISTORY: LLQ and RLQ abdominal pain, diarrhea. TECHNIQUE: CT examination of the abdomen and pelvis was performed with a bolus infusion of 100 cc O mnipaque 350. COMPARISON: CT CHEST PE CTA from 01/03/2019 FINDINGS: Images obtained through the lung bases show a few small intrapulmonary nodules which are predominant ly pleural based, the largest measuring 6 millimeters in diameter and probably unchanged from prior C T of 01/03/2019 which was a CTA chest. Follow-up CT suggested 12 months. Note is again made of Gomez rods of the lower lumbar spine. Marked degenerative changes of the spine noted. Liver and spleen are normal in appearance as is the pancreas. Gallbladder and bile jenn ts are CT normal. Adrenals and kidneys appear normal. No urinary tract calcification or obstruction . Abdominal aorta is of normal diameter and no major vascular abnormality is seen. Small fat contai dillan umbilical hernia noted. Small fat containing left inguinal hernia noted. Question mild wall th ickening of ascending colon and cecum may represent colitis and there is mild fat edema surrounding t he cecum supporting the diagnosis of inflammatory process. Appendix not specifically visualized. No evidence of diverticulitis. IMPRESSION: Question colitis of the ascending colon and cecum of uncertain etiology, please correlate clinically.
--- NOTE | 2019-07-20 17:39 | DI.VRAD_ITS ---
PROCEDURE INFORMATION: Exam: CT Abdomen and pelvis with contrast Exam date and time: 07/20/2019 5:14 PM Clinical history: 44 years old, male; Other: Ll and rlq abdominal pain, diarrhea TECHNIQUE: Imaging protocol: Computed tomography of the abdomen and pelvis with intravenous contrast. Radiation optimization: All CT scans at this facility use at least one of these dose optimization techniques: automated exposure control; mA and/or kV adjustment per patient size (includes targeted exams where dose is matched to clinical indication); or iterative reconstruction. Contrast material: OMNIPAQUE 350; Contrast volume: 100 ml; Contrast route: IV; COMPARISON: No relevant prior studies available. FINDINGS: Lungs: There is subpleural atelectasis of the dependent portions of the lungs. There are some scattered sub-6 mm pulmonary nodules identified, nonspecific. For example, a 4 mm nodule is seen in the right lower lobe image 4 series 4. As another example, a 5 mm nodule is seen in the right middle lobe on image 1 series 4. No acute findings in the lung bases otherwise appreciated. Liver: Normal. No mass. Gallbladder and bile ducts: Normal. No calcified stones. No ductal dilation. Pancreas: There is diffuse, benign fatty infiltration of the pancreas. Spleen: Normal. No splenomegaly. Adrenals: Normal. No mass. Kidneys and ureters: Right renal double collecting system is appreciated. No acute renal findings. No obstructive uropathy. Stomach and bowel: There is submucosal fat deposition noted throughout the ascending colon and proximal transverse colon. This finding has been previously described as a sequela of prior infectious/inflammatory process or increased body fat content. However, there is also a small amount of pericolonic fat stranding appreciated in the ascending colon and cecum, raising concern for a superimposed acute colitis. No other segmental bowel wall thickening is appreciated. The small bowel appears grossly unremarkable. There is no evidence of bowel obstruction.The vasculature demonstrates diffuse mild atherosclerotic calcification. Appendix: No evidence of appendicitis. Intraperitoneal space: Unremarkable. No free air. No significant fluid collection. Vasculature: Unremarkable. No abdominal aortic aneurysm. Lymph nodes: Unremarkable. No enlarged lymph nodes. Bladder: Unremarkable as visualized. Reproductive: Unremarkable as visualized. Bones/joints: Prior lumbosacral spine fixation and laminectomies without acute complications. No acute abnormality or aggressive osseous lesion. Soft tissues: Small left fat-containing inguinal hernia is appreciated. IMPRESSION: 1. Findings in the cecum, ascending colon, and proximal transverse colon have been previously described as the sequela of prior infectious/inflammatory process or increased body fat content, however I am also concerned that there is a mild superimposed acute infectious/inflammatory colitis also present. No bowel obstruction is appreciated. No other acute abdominopelvic pathology seen. 2. Incidental findings as above. Of note, there are nonspecific scattered sub-6 mm pulmonary nodules at the lung bases. For patients at low risk (minimal or absent history of smoking and of other known risk factors), no routine follow-up is indicated. For patients at high risk (history of smoking or of other known risk factors), consider optional CT at 12 months. (Andree et al., Fleischner Society, 2017) Dictated and Authenticated by: Jeferson Wilkes MD. Ordering:ALKA Tristan MD
[2019-07-20 18:06] LABS: Bilirubin Small (Negative); Blood Negative (Negative); Clarity Clear (Clear); Glucose Negative (Negative); Ketones Negative (Negative); Leukocyte Esterase Negative (Negative); Nitrite Negative (Negative); pH 5.5 (5-8)
[2019-07-20 18:16] LABS: Bacteria Moderate HPF (Negative); Crystals Negative HPF (Negative); Epithelial Cells Few HPF (Negative); Mucus Heavy (Negative); Other Cells Negative (Negative); RBC Negative (0-2)
[2019-07-20 18:17] LABS: C & S Indicated? Yes; Casts 0-2 Hyaline LPF (Negative)
[2019-07-20] MEDS: CIPROFLOXACIN 400 MG/200 ML BAG 200 MG IVPB (18:17)
[2019-07-20] MEDS: metroNIDAZOLE 500 MG/100 ML BAG 100 MG IVPB (20:01)
== END 2019-07-20 21:17 | disposition home or self-care (01) ==
PROVIDERS: Emergency Provider Student in an Organized Health Care Education/Training Program; PCP Family Medicine
DX: R91.1 Solitary pulmonary nodule (principal); K52.9 Noninfective gastroenteritis and colitis, unspecified
CPT/HCPCS: 36415; 80053; 83690; 96361; 96365; 96366; 96367; 96375; 99285; 74177; 81003; 81015; 83605; 85025; 85610; 85730; 87086; 87324; 99284; J0744; J2270; J3490

== ENCOUNTER 2019-07-22 07:33 | Outpatient (REF) | payer MEDICARE, MEDICAID, SELFPAY | END 2019-07-22 07:53 | LOC: LBN 07:33 | PROVIDERS: PCP Family Medicine; Visit Provider Student in an Organized Health Care Education/Training Program | DX: R19.7 Diarrhea, unspecified (principal) | CPT/HCPCS: 87329; 87324 ==

== ENCOUNTER 2019-07-26 21:20 | Outpatient (REF) | payer MEDICARE, MEDICAID, SELFPAY | END 2019-07-26 21:40 | LOC: LBN 21:20 | PROVIDERS: PCP Family Medicine; Visit Provider Student in an Organized Health Care Education/Training Program | DX: R19.7 Diarrhea, unspecified (principal) | CPT/HCPCS: 87329 ==

== ENCOUNTER 2019-07-29 02:08 | Outpatient (RCR) | payer MEDICARE, MEDICAID, SELFPAY | END 2019-08-18 23:59 | disposition home or self-care (01) | LOC: INF 02:08 | PROVIDERS: PCP Family Medicine; Visit Provider Student in an Organized Health Care Education/Training Program | DX: R69 Illness, unspecified (principal) ==

== ENCOUNTER 2019-10-11 11:22 | Outpatient (CLI) | payer MEDICARE, MEDICAID, SELFPAY ==
[2019-10-11 13:04] LABS: HCT 48.4 % (40.0-50.0); HGB 16.1 g/dL (13.5-17.5); Mean Corp. HGB Concentration 33.3 g/dL (32.0-36.0); Mean Corpuscular Hemoglobin 27.3 pg (27.0-33.0); Mean Corpuscular Volume 82.2 fL (80-95); Mean Platelet Volume 10.3 fL (8.0-11.0); Platelet Count 233 x1000/uL (130-400); RBC 5.89 m/cumm (4.50-6.00); RBC Distribution Width 14.4 % (11.8-14.1); White Blood Cell Count 12.45 k/cumm (4.4-10.8)
[2019-10-11 13:16] LABS: Anion Gap 9.1 mmol/L (3-11); BUN 11 mg/dL (7-18); CO2 29.9 mmol/L (21.0-32.0); CREATININE 0.92 mg/dL (0.70-1.30); Calcium 9.3 mg/dL (8.5-10.1); Calculated LDL 52 mg/dL; Chloride 101 mmol/L (98-107); Cholesterol 137 mg/dL (<200); Glucose 86 mg/dL (74-106); HDL Cholesterol 29 mg/dL (40-60); Potassium 4.2 mmol/L (3.5-5.1); Sodium 140 mmol/L (136-145); Triglyceride 281 mg/dL (<150)
== END 2019-10-11 11:42 ==
PROVIDERS: PCP Family Medicine; Visit Provider Family Medicine
DX: E78.5 Hyperlipidemia, unspecified (principal); Z72.0 Tobacco use; Z01.818 Encounter for other preprocedural examination
CPT/HCPCS: 36415; 80048; 80061; 85027

== ENCOUNTER 2019-10-31 13:43 | Outpatient (CLI) | payer MEDICARE, MEDICAID, SELFPAY ==
[2019-10-31 14:20] LABS: Carboxyhemoglobin 2.2 %
== END 2019-10-31 14:03 ==
PROVIDERS: PCP Family Medicine; Visit Provider Student in an Organized Health Care Education/Training Program
DX: Z72.0 Tobacco use (principal); Z01.818 Encounter for other preprocedural examination
CPT/HCPCS: 36415; 82375

== ENCOUNTER → 2019-11-03 08:04 | Outpatient (BNVA) | payer MEDICARE, MEDICAID, SELFPAY | PROVIDERS: PCP Family Medicine; Referring Provider Family Medicine; Visit Provider Student in an Organized Health Care Education/Training Program | DX: S68.624D Partial traumatic transphalangeal amputation of right ring finger, subsequent encounter (principal); X58.XXXD Exposure to other specified factors, subsequent encounter | CPT/HCPCS: 99213 ==

== ENCOUNTER 2019-11-09 11:27 | Day surgery (SDC) | payer MEDICARE, MEDICAID, SELFPAY ==
--- NOTE | 2019-11-09 10:03 | PDOC.DSDIS_ITS ---
Discharge Plan Disposition Patient Disposition: HOME Condition: Good Discharge Details Reason For Visit: NAIL EXC RRF Attending Provider: Arcenio Schofield Primary Care Provider: Brian Longo Home Meds and New Rx's Prescriptions: New acetaminophen 500 mg tablet 500 mg PO Q6H PRN (Reason: pain) Qty: 60 RF: 2 ibuprofen 600 mg tablet 600 mg PO TID PRN (Reason: pain) Qty: 60 RF: 2 oxycodone 5 mg tablet 5 mg PO Q8H PRN PRN (Reason: severe post-operative pain) Qty: 4 RF: 0 Continued sertraline 100 mg tablet 100 mg PO DAILY Qty: 90 RF: 3 atorvastatin 40 mg tablet 40 mg PO DAILY Qty: 90 RF: 3 albuterol sulfate 1.25 mg/3 mL solution for nebulization 1.25 mg Inhalation q 4 h PRN (Reason: bronchospasm) Qty: 50 RF: 2 Symbicort 80-4.5 mcg/actuation HFA aerosol inhaler 1 puff Inhalation BID Qty: 1 RF: 11 ipratropium-albuterol 0.5 mg-3 mg(2.5 mg base)/3 mL solution for nebulization 3 ml PO Q4H PRN (Reason: shortness of breath) Qty: 50 RF: 1 pantoprazole 40 mg tablet,delayed release (DR/EC) 40 mg PO BID Qty: 180 RF: 3 (DME) Comp-Air Elite Comp Neb System 1 EACH device 1 ea Miscellaneous q 4 h prn Qty: 1 RF: 0 albuterol sulfate [ProAir HFA] 90 mcg/actuation HFA aerosol inhaler 200 puff Inhalation Q6H PRN PRN (Reason: bronchospasm) Qty: 1 RF: 3 ezetimibe [Zetia] 10 mg tablet 10 mg PO DAILY Qty: 90 RF: 3 metoclopramide HCl [Reglan] 10 mg tablet 10 mg PO BID PRN (Reason: nausea and vomiting) Qty: 30 RF: 0 naproxen sodium [Aleve] 220 mg capsule 220 mg PO DAILY PRN RF: 0 acetaminophen 500 mg capsule 1,000 mg PO Q8H PRN (Reason: pain) Qty: 90 RF: 0 Discharge Instructions Additional Instructions: Activity: You should keep your hand/finger elevated for the first 2-3 days. You may move it as tolerated and use the hand for light-activity. However, no direct pressure to the end of the finger. No tight or forceful grasping. Keep clean and dry. Dressings: The operative dressing should stay on for 2 days. It may then be removed and covered with 2 bandaids. 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
[2019-11-09 11:49] VITALS: BP 105/63; PULSE 76; RESP 20; TEMP 36.3; O2SAT 98
[2019-11-09] MEDS: Lidocaine 1% Multi-Dose 50 ML VIAL (13:16)
[2019-11-09] MEDS: Sodium Bicarbonate 50 MEQ/50 ML VIAL (13:16)
[2019-11-09] MEDS: Silver Nitrate Stick 1 EACH (13:25)
--- NOTE | 2019-11-10 06:48 | W.PM.OP ---
Date of service: 11/09/19 Time of Service: 13:48 Operative Note Operative Note DATE OF PROCEDURE: 11/09/19 PRE-OP DIAGNOSIS: Dysmorphic nail, right ring finger POST-OP DIAGNOSIS: same PROCEDURE: Remnant fingernail removal from right ring finger with germinal matrix ablation SURGEON: Arcenio Schofield ANESTHESIA: local ESTIMATED BLOOD LOSS: 0 PATHOLOGY: none sent COMPLICATIONS: None Patient was transported to: same day Patient's condition: stable Indications: I have seen Cole in clinic for symptoms of a remnant nail after traumatic partial imitation to the distal phalanx. He has tried to continue to keep this cut short but it continues to grow and catches on items. It is quite small and comes from the very far recess of the transplanted amputation. Given its persistence, I offered surgical removal of the nail with ablation of the matrix. I reviewed the risks of the procedure to include, but not limited to, bleeding, infection, pain, stiffness, recurrence. Despite these risks, the patient elected to proceed. Findings: The nail remnant was excised sharply all the way down to bone. A knife was used to remove matrix material and then cautery was also used. Procedure Description: Cole was greeted in the preoperative holding area where the correct side was identified and marked. The consent was reviewed with the patient and signed. All questions were answered. Cole was taken back to the operating room. The patient was placed into the supine position on the operating room table with the right arm on an arm board. All bony prominences were well padded. No prophylactic antibiotics were administered since this was a clean, elective hand surgical case. The right arm was then prepped with Chloraprep and draped in a standard fashion with stockinette and extremity drape. A timeout to confirm correct identity, side and site, procedure, allergies, anesthesia, and medical concerns was performed. The nail remnant was identified. An incision was made on either side of the nail, approximately 2 mm. I then used a knife to go to both sides of the nail tracing all the way down to its origin on bone. This was taken down sharply all the way to its base and the entire nail section was removed. Any remaining germinal matrix was cut away from the bone leaving only bone in this tract. A Kinderhook blade was utilized to help scrape off the underlying bone of any remaining matrix cells. A silver nitrate stick was then used to cauterize and ablate any remaining matrix. The wound was then irrigated and the skin was closed with a 4-0 Nylon. This was dressed with gauze and a Conform dressing. The patient tolerated the procedure well and was returned to the Same Day Surgery area in a stable condition suffering no known complication.
== END 2019-11-09 13:46 | disposition home or self-care (01) ==
LOC: SUR 11:27
PROVIDERS: PCP Family Medicine; Visit Provider Student in an Organized Health Care Education/Training Program
PROC: (CPT 26160; principal; 2019-11-09 13:45)
DX: L60.8 Other nail disorders (principal); S68.12 Partial traumatic metacarpophalangeal amputation of other and unspecified finger; X58.XXXS Exposure to other specified factors, sequela
CPT/HCPCS: 11750

== ENCOUNTER → 2019-11-17 08:29 | Outpatient (BNVA) | payer MEDICARE, MEDICAID, SELFPAY | PROVIDERS: PCP Family Medicine; Referring Provider Family Medicine; Visit Provider Student in an Organized Health Care Education/Training Program | DX: Z47.89 Encounter for other orthopedic aftercare (principal); L60.8 Other nail disorders; S68.62 Partial traumatic transphalangeal amputation of other and unspecified finger; X58.XXXS Exposure to other specified factors, sequela ==

== ENCOUNTER 2020-01-07 11:38 | Emergency (ER) | payer MEDICARE, MEDICAID, SELFPAY ==
--- NOTE | 2020-01-07 11:30 | DI.RAD_ITS ---
EXAM: XR TIB/FIB RT CLINICAL HISTORY: crush TECHNIQUE: COMPARISON: XR ANKLE RT COMPLETE from 01/07/2020 XR HEEL RT OS CALCIS from 01/07/2020 FINDINGS: Radiographs of the leg, ankle, and heel were obtained. There is healed tibial fibular fracture with intramedullary luz in place in the tibia and suture anchors appear to be present in the distal fibula . There is marked degenerative deformity of the talus and associated articular surface of the tibia with a marked varus deformity at the tibiotalar joint and narrowing of the cartilaginous joint space. Prominent hypertrophic changes noted involving the tibia, talus, and fibula. No acute fracture inv olving the leg, ankle, or heel. IMPRESSION: Chronic findings as described above. No evidence of acute fracture.
[2020-01-07 11:34] VITALS: BP 128/69; PULSE 86; RESP 16; TEMP 36.7; O2SAT 99
--- NOTE | 2020-01-07 11:38 | ED.GENADUL_ITS ---
Discharge Plan Disposition Patient Disposition: HOME Condition: Good Discharge Details Chief Complaint: Orthopedic Clinical Impression: Crush accident, Ankle contusion Primary Care Provider: Brian Longo ED Provider: Krysta Campos Home Meds and New Rx's Prescriptions: Continued sertraline 100 mg tablet 100 mg PO DAILY Qty: 90 RF: 3 atorvastatin 40 mg tablet 40 mg PO DAILY Qty: 90 RF: 3 albuterol sulfate 1.25 mg/3 mL solution for nebulization 1.25 mg Inhalation q 4 h PRN (Reason: bronchospasm) Qty: 50 RF: 2 budesonide-formoterol [Symbicort] 80-4.5 mcg/actuation HFA aerosol inhaler 1 puff Inhalation BID Qty: 1 RF: 11 ipratropium-albuterol 0.5 mg-3 mg(2.5 mg base)/3 mL solution for nebulization 3 ml PO Q4H PRN (Reason: shortness of breath) Qty: 50 RF: 1 pantoprazole 40 mg tablet,delayed release (DR/EC) 40 mg PO BID Qty: 180 RF: 3 (DME) Comp-Air Elite Comp Neb System 1 EACH device 1 ea Miscellaneous q 4 h prn Qty: 1 RF: 0 albuterol sulfate [ProAir HFA] 90 mcg/actuation HFA aerosol inhaler 200 puff Inhalation Q6H PRN PRN (Reason: bronchospasm) Qty: 1 RF: 3 ezetimibe [Zetia] 10 mg tablet 10 mg PO DAILY Qty: 90 RF: 3 acetaminophen 500 mg capsule 1,000 mg PO Q8H PRN (Reason: pain) Qty: 90 RF: 0 acetaminophen 500 mg tablet 500 mg PO Q6H PRN (Reason: pain) Qty: 60 RF: 2 ibuprofen 800 mg Tablet 800 mg PO Q8H PRNRF: 0 Discharge Instructions Instructions: Contusion in Adults (ED) Additional Instructions: Encourage rest, ice, elevation. Tylenol and/or ibuprofen as needed for discomfort. Please continue with your pain persist. Please contact your orthopedic surgeon on Thursday to discuss your previous injuries and your increased pain associated with your trauma today. Imaging is reassuring at this point. If you develop any new or worsening symptoms please seek care urgently once again. Referrals: Brian Longo [Primary Care Provider] - Medical Decision Making Patient is a 44-year-old male presenting today with chief complaint of right ankle pain. Brought in via EMS after crush injury. He reports he was working on a car when the trina broke in the car landed on his ankle. He reports that he has had a multitude of surgeries to this ankle before. Unclear as to what type he has had but he does describe a luz being in place from his knee to his ankle. States that he has broken this historically. He denies any numbness or tingling. He reports that he is unable to move the ankle. Reports very limited movement in the toes are prior to the injury today as result of his previous surgical interventions. He denies other injury the time of the incident. On exam, patient appears uncomfortable. He indicates the medial malleolus is area of maximal tenderness. He does have a more bony prominence on the lateral aspect but does have any concern about lateral bony abnormality although he does not have pain over this area. He has no obvious swelling, ecchymosis, erythema or break in his skin. He is 1+ distal pulses and brisk capillary refill. Surgical incisions have healed well. Normal Achilles exam. No pain or evidence of trauma about the foot, no pain over the proximal fifth metatarsal. No pain over the proximal fibula, pain about the knee. Plan for imaging. Given the patient's surgical history plan for tib/fib. He does endorse pain in the medial calcaneus although again, no obvious trauma, will obtain imaging of this as well. Patient given 1g of Dilaudid XR reviewed by radiologist: Bones/joints: Intramedullary luz in the tibia with proximal and distal interlocking screws. Healed distal tibial and fibular shaft fractures. Degenerative changes in the ankle joint There is no evidence of acute fracture.There is no evidence of malalignment or dislocation. Soft tissues: Normal. IMPRESSION: 1. Intramedullary luz in the tibia with proximal and distal interlocking screws. 2. Healed distal tibial and fibular shaft fractures. 3. There is no evidence of acute fracture.There is no evidence of malalignment or dislocation. FINDINGS: Bones/joints: No evidence of fracture in the calcaneus. Stable appearance of the calcaneus. Intramedullary luz in the distal tibia Soft tissues: Surgical device in the distal fibula IMPRESSION: No evidence of fracture in the calcaneus. Stable appearance of the calcaneus. FINDINGS: Bones/joints: Intramedullary luz in the distal tibia with interlocking screws. Stable surgical devices in the distal fibula.. Joint space narrowing in the tibiotalar joint consistent with degenerative changes. Degenerative Changes in the medial malleolus and lateral malleolus. Mild lateral subluxation of the talus with respect to the tibia was present on the prior study. There is no evidence of acute fracture.There is no evidence of malalignment or dislocation. Soft tissues: Normal. IMPRESSION: 1. Intramedullary luz in the distal tibia with interlocking screws. Stable surgical devices in the distal fibula.. 2. Joint space narrowing in the tibiotalar joint consistent with degenerative changes. Degenerative Changes in the medial malleolus and lateral malleolus. 3. Mild lateral subluxation of the talus with respect to the tibia was present on the prior study. 4. There is no evidence of acute fracture.There is no evidence of malalignment or dislocation. Discussed these findings with the patient. Advised contusion. Encourage rest, ice, elevation. With the patient with a boot given his level of discomfort to help with immobilization. He may advance activity as tolerated. The patient states he is followed by orthopedics in [facility] and he will contact them tomorrow to schedule follow-up appointment. He was given return precautions. All his questions and concerns were addressed and he is in agreement this plan. HPI General Mode of arrival: EMS . Date/Time Provider Initiated Documentation: 01/07/20 12:40 . Limitations to Documentation: no limitations . Information obtained by: patient, EMS and RN notes reviewed . History of Present Illness 44 year old M presents to the emergency department with the chief complaint of right ankle crush injury, described as severe, with intensity rated at 10. Quality is described as crushing, and is localized to the right and lower extremity. Patient reports no radiation. Patient started experiencing this minute(s) and it has been constant. Immobilization improves symptom(s), Movement worsens symptoms . Patient notes no other symptoms.. Patient did receive the following treatments prior to arrival, other (100mcg Fentanyl) Related Data Home Medications Medication Instructions Recorded Confirmed Comp-Air Elite Comp Neb System #1 ea 07/16/16 01/07/20 acetaminophen 1,000 mg PO Q8H PRN #90 cap 08/31/18 01/07/20 albuterol sulfate 90 mcg/actuation 200 puff INHALATION Q6H PRN PRN #1 02/09/19 01/07/20 aerosol inhaler inh albuterol sulfate 1.25 mg/3 mL 1.25 mg INHALATION q 4 h PRN #50 03/23/19 01/07/20 solution for nebulization vial atorvastatin 40 mg tablet 40 mg PO DAILY #90 tab-cap 03/23/19 01/07/20 budesonide-formoterol HFA 80 1 puff INHALATION BID #1 inhaler 03/23/19 01/07/20 mcg-4.5 mcg/actuation aerosol inhaler ipratropium 0.5 mg-albuterol 3 mg 3 ml PO Q4H PRN #50 vial 03/23/19 01/07/20 (2.5 mg base)/3 mL nebulization soln pantoprazole 40 mg tablet,delayed 40 mg PO BID #180 tab-cap 08/24/19 01/07/20 release sertraline 100 mg tablet 100 mg PO DAILY #90 tab 10/11/19 01/07/20 ezetimibe 10 mg tablet 10 mg PO DAILY #90 tab-cap 10/26/19 01/07/20 acetaminophen 500 mg PO Q6H PRN #60 tab 11/09/19 01/07/20 ibuprofen 800 mg PO Q8H PRN 01/07/20 01/07/20 Previous Rx's Medication Instructions Recorded acetaminophen 1,000 mg PO Q8H PRN #90 cap 08/31/18 albuterol sulfate 90 mcg/actuation 200 puff INHALATION Q6H PRN PRN #1 02/09/19 aerosol inhaler inh albuterol sulfate 1.25 mg/3 mL 1.25 mg INHALATION q 4 h PRN #50 03/23/19 solution for nebulization vial atorvastatin 40 mg tablet 40 mg PO DAILY #90 tab-cap 03/23/19 budesonide-formoterol HFA 80 1 puff INHALATION BID #1 inhaler 03/23/19 mcg-4.5 mcg/actuation aerosol inhaler ipratropium 0.5 mg-albuterol 3 mg 3 ml PO Q4H PRN #50 vial 03/23/19 (2.5 mg base)/3 mL nebulization soln pantoprazole 40 mg tablet,delayed 40 mg PO BID #180 tab-cap 08/24/19 release sertraline 100 mg tablet 100 mg PO DAILY #90 tab 10/11/19 ezetimibe 10 mg tablet 10 mg PO DAILY #90 tab-cap 10/26/19 acetaminophen 500 mg PO Q6H PRN #60 tab 11/09/19 Allergies Allergy/AdvReac Type Severity Reaction Status Date / Time Fish Containing Products Allergy Intermediate hives Verified 01/07/20 11:33 Penicillins Allergy Mild Skin Rash Verified 01/07/20 11:33 aspirin AdvReac Intermediate epistaxis Verified 01/07/20 11:33 seafood Allergy Intermediate Hives Uncoded 01/07/20 11:33 hydrocodone-homatropine AdvReac Intermediate GI UPSET Uncoded 01/07/20 11:33 General DONG: 3 Review of Systems Constitutional Constitutional: Reports as per HPI, Denies chills, Denies fever(s), Denies headache(s) and Denies weakness ENT Ears, Nose, Mouth, and Throat: Denies headache(s) Cardiovascular Cardiovascular: Reports as per HPI Respiratory Respiratory: Reports as per HPI and Denies cough Musculoskeletal Musculoskeletal: Reports as per HPI and Denies tingling Integumentary/Breasts Skin/Breast: Reports as per HPI, Denies rash and Denies wounds Neurologic Neurologic: Reports as per HPI, Denies headache(s), Denies tingling, Denies paresthesias and Denies weakness [facility] Medical History Anxiety (Chronic) Arthritis (Chronic) Asthma (Chronic) Depression with anxiety (Chronic) GERD (gastroesophageal reflux disease) (Chronic) Hyperlipidemia (Chronic) Lung nodules (Acute) tobacco abuse (Chronic) Surgical History Excision, Skin Mass (Inactive) 2008-LUQ LIPOMA Fracture, Closed Treatment (Inactive) ANKLE History of back surgery (Acute) History of surgical amputation of finger of right hand (Acute) 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 NECK SURGERY (Inactive) 09/19-WITH METAL PLATE Open Carpal Tunnel release (Inactive) 204-RIGHT Social History Smoking/Tobacco Use Status: Current every day Tobacco Type: cigarettes Alcohol Intake: current Alcohol Intake frequency: holidays/special occasions only Drug use: Never Substance use type: does not use Current gender identity: male Do you feel safe at home: Yes Do you feel safe in your relationship?: Yes Exam Const General: cooperative, healthy appearing, uncomfortable (appears uncomfortable), no acute distress, well developed and well groomed Nutritional Appearance: average body habitus and well nourished Orientation: alert and awake Resp Effort & Inspection: normal respiratory effort, able to speak in complete sen tences and no respiratory distress Cardio Rate: regular rate Rhythm: regular rhythm Skin General skin exam: no rashes or lesions noted Lesions: no lesions Rashes: no rashes Trauma: no lacerations or abrasions Neuro General: patient alert and patient awake Cognition: normal cognition Speech: speech normal Gait: normal gait Motor: muscle tone normal throughout Sensory Exam: no sensory deficits noted Extrem Right lower extremity: normal capillary refill (1+ distal pulses), no joint enlargement, knee Details: normal to inspection; no tenderness and no swelling, lower leg Details: normal to inspection and no edema; no tenderness, no localized swelling, no palpable cords, no ecchymosis, no crepitus and no deformity and ankle Details: abnormal to inspection (bony prominence laterally), tenderness Location: of the medial malleolus, no edema and abnormal ROM (unable to move); no swelling, no unusual warmth, no abrasions, no lacerations, no ecchymosis, no crepitus and achilles tendon exam normal; abnormal to inspection (deformity noted laterally, possible old vs. new deformity. No swelling, ecc) and ROM limited Psych Appearance: grossly normal and well kempt Mental Status: mental status grossly normal Speech and Movement: speech and movement normal
[2020-01-07] MEDS: HYDROmorphone 2 MG/ML VIAL 1 MG IVP (11:52)
[2020-01-07] MEDS: Normal Saline 1,000 ML 250 ML IV (11:53)
--- NOTE | 2020-01-07 11:58 | NUR.NOTE ---
Nursing Note: 100 MCG Fentanyl was administered by EMS intra-nasal route prior to arrival. Pt reports relief, down to 7 out of 10 on pain scale from a 10 out of 10.
--- NOTE | 2020-01-07 12:28 | DI.VRAD_ITS ---
PROCEDURE INFORMATION: Exam: XR Right Ankle Exam date and time: 01/07/2020 12:07 PM Age: 44 years old Clinical indication: Injury or trauma; Fall; Initial encounter; Blunt trauma; Heel; Right TECHNIQUE: Imaging protocol: XR Right ankle. Views: 3 or more views. COMPARISON: CR RIGHT ANKLE COMPLETE 12/17/2016 6:17 AM FINDINGS: Bones/joints: Intramedullary luz in the distal tibia with interlocking screws. Stable surgical devices in the distal fibula.. Joint space narrowing in the tibiotalar joint consistent with degenerative changes. Degenerative Changes in the medial malleolus and lateral malleolus. Mild lateral subluxation of the talus with respect to the tibia was present on the prior study. There is no evidence of acute fracture.There is no evidence of malalignment or dislocation. Soft tissues: Normal. IMPRESSION: 1. Intramedullary luz in the distal tibia with interlocking screws. Stable surgical devices in the distal fibula.. 2. Joint space narrowing in the tibiotalar joint consistent with degenerative changes. Degenerative Changes in the medial malleolus and lateral malleolus. 3. Mild lateral subluxation of the talus with respect to the tibia was present on the prior study. 4. There is no evidence of acute fracture.There is no evidence of malalignment or dislocation. Dictated and Authenticated by: Mary Jane Valdivia MD. Ordering:CATRACHITA Chaparro MD
--- NOTE | 2020-01-07 12:30 | DI.VRAD_ITS ---
PROCEDURE INFORMATION: Exam: XR Right Calcaneus Exam date and time: 01/07/2020 12:08 PM Age: 44 years old Clinical indication: Pain; Heel; Right TECHNIQUE: Imaging protocol: XR of the Right calcaneus. Views: 2 or more views. COMPARISON: CR RIGHT FOOT COMPLETE 12/17/2016 6:17 AM FINDINGS: Bones/joints: No evidence of fracture in the calcaneus. Stable appearance of the calcaneus. Intramedullary luz in the distal tibia Soft tissues: Surgical device in the distal fibula IMPRESSION: No evidence of fracture in the calcaneus. Stable appearance of the calcaneus. Dictated and Authenticated by: Mary Jane Valdivia MD. Ordering:CATRACHITA Chaparro MD
--- NOTE | 2020-01-07 12:31 | DI.VRAD_ITS ---
PROCEDURE INFORMATION: Exam: XR Right Tibia and Fibula Exam date and time: 01/07/2020 12:11 PM Age: 44 years old Clinical indication: Pain; Heel; Right TECHNIQUE: Imaging protocol: XR Right tibia and fibula. Views: 2 views. COMPARISON: No relevant prior studies available. FINDINGS: Bones/joints: Intramedullary luz in the tibia with proximal and distal interlocking screws. Healed distal tibial and fibular shaft fractures. Degenerative changes in the ankle joint There is no evidence of acute fracture.There is no evidence of malalignment or dislocation. Soft tissues: Normal. IMPRESSION: 1. Intramedullary luz in the tibia with proximal and distal interlocking screws. 2. Healed distal tibial and fibular shaft fractures. 3. There is no evidence of acute fracture.There is no evidence of malalignment or dislocation. Dictated and Authenticated by: Mary Jane Valdivia MD. Ordering:CATRACHITA Chaparro MD
--- NOTE | 2020-01-07 12:48 | NUR.NOTE ---
Nursing Note: walking boot applied to right ankle per PA P[place] request.
[2020-01-07 12:49] VITALS: BP 114/55; PULSE 68; RESP 16; TEMP 36.6; O2SAT 98
== END 2020-01-07 13:02 | disposition home or self-care (01) ==
LOC: ER 13:03
PROVIDERS: Emergency Provider Physician Assistant; PCP Family Medicine
DX: S97.01XA Crushing injury of right ankle, initial encounter (principal); S90.01XA Contusion of right ankle, initial encounter; W20.8XXA Other cause of strike by thrown, projected or falling object, initial encounter
CPT/HCPCS: 29505; 96374; 99284; 73590; 73610; 73650; L4361

== ENCOUNTER → 2020-03-26 12:57 | Outpatient (BNVA) | payer MEDICARE, MEDICAID, SELFPAY | PROVIDERS: PCP Family Medicine; Referring Provider Family Medicine; Visit Provider Student in an Organized Health Care Education/Training Program | DX: S68.624D Partial traumatic transphalangeal amputation of right ring finger, subsequent encounter (principal); X58.XXXD Exposure to other specified factors, subsequent encounter; L60.8 Other nail disorders | CPT/HCPCS: 99214 ==

== ENCOUNTER 2020-04-10 07:06 | Day surgery (SDC) | payer MEDICARE, MEDICAID, SELFPAY ==
[2020-04-10 07:12] VITALS: BP 108/57; PULSE 59; RESP 18; TEMP 36.5; O2SAT 96
--- NOTE | 2020-04-10 07:14 | W.PM.DSUDISC ---
Discharge Plan Disposition Patient Disposition: HOME Condition: Good Discharge Details Reason For Visit: RRF Nail Deformity Attending Provider: Arcenio Schofield Primary Care Provider: Brian Longo Home Meds and New Rx's Prescriptions: New hydrocodone-acetaminophen 5-325 mg tablet 1 tab PO Q8H PRN PRN (Reason: pain) Qty: 6 RF: 0 Continued sertraline 100 mg tablet 100 mg PO DAILY Qty: 90 RF: 3 pantoprazole 40 mg tablet,delayed release (DR/EC) 40 mg PO BID Qty: 180 RF: 3 atorvastatin 40 mg tablet 40 mg PO DAILY Qty: 90 RF: 3 budesonide-formoterol [Symbicort] 80-4.5 mcg/actuation HFA aerosol inhaler 1 puff Inhalation BID Qty: 1 RF: 11 gabapentin 100 mg capsule 100 mg PO BID Qty: 60 RF: 5 albuterol sulfate [ProAir HFA] 90 mcg/actuation HFA aerosol inhaler 2 puff Inhalation Q6H PRN PRN (Reason: bronchospasm) Qty: 1 RF: 3 ezetimibe [Zetia] 10 mg tablet 10 mg PO DAILY Qty: 90 RF: 3 ipratropium-albuterol 0.5 mg-3 mg(2.5 mg base)/3 mL solution for nebulization 3 ml PO Q4H PRN (Reason: shortness of breath) Qty: 50 RF: 1 ibuprofen 800 mg Tablet 800 mg PO Q8H PRNQty: 30 RF: 0 Changed acetaminophen 500 mg capsule 500 mg PO Q6H PRN PRN (Reason: pain) Qty: 60 RF: 0 No Action (DME) Comp-Air Elite Comp Neb System 1 EACH device 1 ea Miscellaneous q 4 h prn Qty: 1 RF: 0 Discharge Instructions Additional Instructions: Activity: You may use your fingers for light activity. You should limit any excessive motion or forceful gripping until the sutures have been removed. You may use the finger for light activity but avoid direct pressure or contact. Dressings: You should keep the initial surgical dressing in place for at least 3 days. You may remove your dressings and get the wound wet after 3 days. It may require soaking the dressing. You should keep the dressings and the wound clean at all times. You may keep the initial dressing in place until your follow-up but keep the wound covered with light gauze until the sutures are removed. Medications: - You should take Tylenol and Ibuprofen around the clock as prescribed or per beam builder helper's recommendations. - You have Hydrocodone prescribed for breakthrough pain control. Take only as needed and limit use as much as possible. This may cause constipation. Follow-up: 7-10 days for wound check and suture removal. 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
[2020-04-10] MEDS: Sodium Bicarbonate 50 MEQ/50 ML VIAL (08:44)
[2020-04-10] MEDS: Lidocaine 1% Multi-Dose 50 ML VIAL (08:44)
[2020-04-10] MEDS: Bupivacaine 0.25% Pres-Free 30 ML VIAL (08:49)
[2020-04-10 09:43] VITALS: BP 132/47; PULSE 54; RESP 18; TEMP 36.2; O2SAT 97
--- NOTE | 2020-04-10 13:45 | W.PM.OP ---
Date of service: 04/10/20 Time of Service: 09:05 Operative Note Operative Note DATE OF PROCEDURE: 04/10/20 PRE-OP DIAGNOSIS: Painful nail deformity of right ring finger POST-OP DIAGNOSIS: same PROCEDURE: Revision amputation of right ring finger SURGEON: Arcenio Schofield ANESTHESIA: local ESTIMATED BLOOD LOSS: 0 PATHOLOGY: none sent COMPLICATIONS: None Patient was transported to: same day Patient's condition: stable Indications: I have seen Cole in clinic for a painful nail remnant of a right ring finger amputation. This nail remnant has been present since he had a partial amputation after traumatic injury with a snowblower. I performed a localized nail remnant removal in October. However, the nail has returned. It is problematic as it causes pain and it catches on things. Therefore, I offered revision amputation of the finger to change the contour of the fingertip and remove all the nail remnant and germinal matrix. I reviewed the risks of the procedure to include, but not limited to, bleeding, infection, pain, stiffness, incomplete release, damage to nerves or vessels, continued catching, recurrence. Despite these risks, the patient elected to proceed. Findings: The nail remnant was taken back and the general matrix attached to the base of the nail was removed en bloc. I also elevated off the soft tissue from the tip of the distal phalanx and recontour the distal phalanx with a rongeur and a curette. I removed any remnant material which appeared to be now related. I then slid some of the skin more distal to smooth out the prominence over the radial portion. Procedure Description: Cole was greeted in the preoperative holding area where the correct side was identified and marked. The consent was reviewed with the patient and signed. All questions were answered. Cole was taken back to the operating room. The patient was placed into the supine position on the operating room table with the right arm on an arm board. All bony prominences were well padded. No prophylactic antibiotics were administered since this was a clean, elective hand surgical case. The right arm was then prepped with Chloraprep and draped in a standard fashion with stockinette and extremity drape. A timeout to confirm correct identity, side and site, procedure, allergies, anesthesia, and medical concerns was performed. The surgical site was marked extending 5 mm from the nail remnant on either side making a curvilinear approach. The right ring finger was then anesthetized with a digital block using 8 cc of 1% lidocaine buffered with sodium bicarbonate. Once had a chance to set up, the finger was elevated and a Louie drain was placed at the base of the finger to serve as a finger tourniquet. Stay here for 10 minutes. I then incised the fingertip on either side of the nail. I used the nail as a guide to follow it down to the base to remove any remnant germinal matrix. This was excised sharply. I used a knife to elevate any tissue from underneath the skin as well as some overlying the bone to remove any new remnants. This was also removed with a rongeur. A curette was utilized to debride the soft tissues from overlying the distal phalanx. I then took the knife and elevated off the soft tissue from the distal and radial aspect of the distal phalanx. Using a rondure I smoothed this bone to remove some of the prominence. I also debulked some the soft tissue with a rongeur. This allowed the radial, distal aspect of the finger to be translated slightly distally and decrease the prominence of the radial fingertip. The wound was then thoroughly irrigated. I then slightly translated the radial base skin more distal and secured this with 4-0 nylon's. The tourniquet was released and there is no notable bleeding. The finger was dressed with Xeroform, 4 x 4's, conform dressing. The patient tolerated the procedure well and was returned to the Same Day Surgery area in a stable condition suffering no known complication.
== END 2020-04-10 09:48 | disposition home or self-care (01) ==
PROVIDERS: PCP Family Medicine; Visit Provider Student in an Organized Health Care Education/Training Program
PROC: (CPT 26951; principal; 2020-04-10 08:30)
DX: S68.624A Partial traumatic transphalangeal amputation of right ring finger, initial encounter (principal); L60.8 Other nail disorders; M79.644 Pain in right finger(s); X58.XXXA Exposure to other specified factors, initial encounter
CPT/HCPCS: 26951

== ENCOUNTER 2020-04-19 10:00 | Outpatient (CLI) | payer MEDICARE, MEDICAID, SELFPAY | END 2020-04-19 10:20 | PROVIDERS: PCP Family Medicine; Visit Provider Student in an Organized Health Care Education/Training Program | DX: S68.624D Partial traumatic transphalangeal amputation of right ring finger, subsequent encounter (principal); L60.8 Other nail disorders; X58.XXXD Exposure to other specified factors, subsequent encounter ==

== ENCOUNTER 2020-06-21 09:01 | Outpatient (CLI) | payer MEDICARE, MEDICAID, SELFPAY ==
--- NOTE | 2020-06-21 08:45 | DI.RAD_ITS ---
EXAM: XR ANKLE LT COMPLETE CLINICAL HISTORY: lt ankle injury TECHNIQUE: 2D digital imaging was performed. COMPARISON: No exams were available for comparison FINDINGS: BONES: No acute fracture is present. No bony destructive lesion is seen. Tiny old well corticated oss eous densities are seen at the tip of the lateral malleolus. There is a small plantar calcaneal spur . A small enthesophyte is seen at the Achilles tendon insertion site. JOINTS:The ankle mortise is normally aligned. SOFT TISSUE: Mild focal soft tissue swelling is seen at the Achilles insertion site on the calcaneus. If there is concern for tendon injury, MRI should be considered for further evaluation. IMPRESSION: Mild focal soft tissue swelling at the Achilles tendon insertion site. If there is concern for tendo n injury, MRI should be considered for further evaluation. No acute fracture or dislocation. DATA REPOSITORY: RADIATION DOSE DELIVERED:
== END 2020-06-21 09:21 ==
PROVIDERS: PCP Family Medicine; Referring Provider Family Medicine; Visit Provider Student in an Organized Health Care Education/Training Program
DX: M79.89 Other specified soft tissue disorders (principal); S86.012A Strain of left Achilles tendon, initial encounter; Y30.XXXA Falling, jumping or pushed from a high place, undetermined intent, initial encounter; M25.572 Pain in left ankle and joints of left foot; F17.210 Nicotine dependence, cigarettes, uncomplicated
CPT/HCPCS: 99213; 73610

== ENCOUNTER 2020-07-10 01:34 | Outpatient (CLI) | payer MEDICARE, MEDICAID, SELFPAY ==
[2020-07-11 14:36] LABS: COVID-19 RT-PCR Result NEGATIVE (Negative)
== END 2020-07-10 01:54 ==
PROVIDERS: PCP Family Medicine; Visit Provider Student in an Organized Health Care Education/Training Program
DX: Z11.59 Encounter for screening for other viral diseases (principal); Z01.818 Encounter for other preprocedural examination
CPT/HCPCS: U0003

== ENCOUNTER 2020-07-17 00:49 | Outpatient (CLI) | payer MEDICARE, MEDICAID, SELFPAY ==
--- NOTE | 2020-07-17 07:45 | DI.NM_ITS ---
APPROVED REPORT Exam: Pharmacologic Patient Location: Out-Patient Room/Bed: Stress Nurse: Monet Metcalf RN BMI: 21.89 Baseline Rhythm: Sinus Rhythm Indications: Patient reports intermittent ???sharp??? midsternal/substernal chest pain for the past t wo years. ???It takes my breath away???.and both of my arms go numb and get heavy???feels like a lynette er to my chest???. This pain lasts from 5-15 minutes and goes away on its own and may come on with re st or activity. Medical History Medical History: Anxiety, Asthma, Depression, GERD, Lung Nodules. Cardiac Medications: Atorvastatin. Allergies: Fish Containing Products, Penicillin???s, Aspirin, Seafood, Hydrocodone/Homatropine. Cardiac Risk Factors: FHX of CAD, HTN, Hyperlipidemia, Asthma, Smoking Previous Cardiac Procedures: None Pretest Chest Pain Characteristics: None reported per patient. Exercise History: Physically active Physical Disabilities: Ankle injury. Lung Sounds: Clear to auscultation Heart Sounds: Regular Stress Test Details Test: Pharmacologic stress testing performed using 0.4 mg of regadenoson per 5 mL given IV over 10 s econds. Reason for pharmacologic stress test: physical limitation--ankle injury. Nuclear Acquisition: Rest Tc-99m/Stress Tc-99m 1 day Rest Isotope: Tc-99m Sestamibi. Dose: 10.1 Date: 07/17/2020 Injection Time: 1015 Stress Isotope: Tc-99m Sestamibi. Dose: 30.8 Date: 07/17/2020 Injection Time: 1210 HR Resting HR Supine: 60 bpm Max Heart Rate (APMHR): 173 bpm Target HR (85% APMHR): 147 bpm Max HR Achieved: 106 bpm % of APMHR: 61 BP Resting BP Supine: 110/96 mmHg Max BP: 112/74 mmHg ECG Resting ECG: Sinus Rhythm Stress ECG: Sinus Rhythm ST Change: Normal Arrhythmia: None Recovery ECG: Sinus Rhythm Recovery ST Change: Normal Clinical Stress Symptoms: None reported per patient. Stress ECG Conclusion 1. This is a pharmacological stress test. 2. The patient no symptom suggestive of ischemia 3. The EKG portion of this exam is nondiagnostic. Stress Test Summary STAGE HR BP Symptoms NOTES Supine 60 110/96 1 min post Lexiscan injection 91 100/72 3 min post Lexiscan injection 91 112/74 6 min post Lexiscan injection 81 108/88 MPI Conclusion The ejection fraction was 41% with stress. There were no wall motion abnormalities. There is no evidence of ischemia on the imaging portion of the exam. This represents a normal SPECT stress test. Radiologist Interpretation Radiologist agrees with Application Specialist's Interpretation. Radiologist Interpretation by: Shira Watters MD Interpretation Date/Time: 07/19/2020 08:25:23
[2020-07-17] MEDS: Regadenoson 0.4 MG/5 ML SYR IVP (12:50)
== END 2020-07-17 01:09 ==
PROVIDERS: PCP Family Medicine; Visit Provider Family Medicine
DX: R07.9 Chest pain, unspecified (principal); Z82.49 Family history of ischemic heart disease and other diseases of the circulatory system; I10 Essential (primary) hypertension; E78.5 Hyperlipidemia, unspecified; J45.909 Unspecified asthma, uncomplicated; F17.210 Nicotine dependence, cigarettes, uncomplicated
CPT/HCPCS: 78452; 93016; 93018; 93017; J2785

== ENCOUNTER 2020-08-17 02:02 | Outpatient (CLI) | payer MEDICARE, MEDICAID, SELFPAY ==
[2020-08-20 10:16] LABS: SARS-CoV-2 RNA Not Detected (NotDetected); SARS-CoV-2 RNA Source Nasal/Nares
== END 2020-08-17 02:22 ==
PROVIDERS: PCP Family Medicine; Visit Provider Student in an Organized Health Care Education/Training Program
DX: Z01.818 Encounter for other preprocedural examination (principal); Z11.59 Encounter for screening for other viral diseases; S82.201A Unspecified fracture of shaft of right tibia, initial encounter for closed fracture; M19.071 Primary osteoarthritis, right ankle and foot
CPT/HCPCS: U0003

== ENCOUNTER 2020-08-22 07:50 | Observation (INO) | payer MEDICARE, MEDICAID, SELFPAY ==
--- NOTE | 2020-07-11 14:23 | PDOC.ANES ---
Date of service: 07/11/20 Time of Service: 14:23 Anesthesia Note Report Anesthesia Note: Was asked to review Cole's medical history in the setting of upcoming ankle surgery. Will chatting with the preop nurse he endorsed intermittent chest pain which just spontaneously improves over time. These events occur at rest, but also with exertion. He states that he has had a stress test back in 2009 and that it was negative, but he is unsure if the pain that he is having right now is different from the pain that he is currently experiencing. A message was sent to Dr. Longo who reached out to Cole to discuss this. Dr. Longo is ordering a stress test and his ankle surgery is currently postponed. Dr. Schofield is aware. Cole was also notified of the decision to postpone, and was told that if his stress test was negative that it was likely that he would be okay to proceed.
[2020-08-22] VITALS (12 sets, daily range): BP systolic 89–118; BP diastolic 36–65; PULSE 61–80; RESP 16–25; TEMP 36–36.9; O2SAT 94–98
[2020-08-22] MEDS: Gabapentin 300 MG CAP PO (08:34)
[2020-08-22] MEDS: Acetaminophen 500 MG TAB 1000 MG PO ×2 (08:34→20:06)
[2020-08-22] MEDS: Celecoxib 200 MG CAP 400 MG PO (08:34)
[2020-08-22] MEDS: Lactated Ringers 1,000 ML 80 ML IV ×2 (08:35→17:33)
--- NOTE | 2020-08-22 09:00 | DI.RAD_ITS ---
EXAM: XR TIB/FIB RT CLINICAL HISTORY: Right ankle joint deformity, RIGHT TIBIAL FRACTURE TECHNIQUE: 2D and realtime digital imaging was performed. CONTRAST MATERIAL: Refer to procedure report. COMPARISON: CR,XR XR HEEL RT OS CALCIS from 01/07/2020 FINDINGS: Fluoroscopy was provided for Dr. Schofield during the performance of a right ankle and subtalar joint effusion. Please refer to the procedure report for complete details. Fluoro time: 238.3 seconds IMPRESSION: RADIATION DOSE DELIVERED:
[2020-08-22] MEDS: Bupivacaine 0.5% Pres-Free 30 ML VIAL ×2 (09:52→09:57)
[2020-08-22] MEDS: ceFAZolin 2 GM/50 ML BAG IVPB (10:26)
[2020-08-22] MEDS: ePHEDrine 50 MG/ML VIAL IVP ×3 (16:25→16:43)
--- NOTE | 2020-08-22 17:51 | NUR.NOTE ---
Nursing Note: 1700- pt transferred from PACU to med surg floor at this time. VSS, IV fluids running, and pt belongings in room.
[2020-08-22] MEDS: Pantoprazole 40 MG TABCR PO (20:05)
[2020-08-22] MEDS: Gabapentin 100 MG CAP PO (20:05)
[2020-08-22] MEDS: Atorvastatin 40 MG TAB PO (20:05)
[2020-08-22] MEDS: Budesonide/Formoterol 80/4.5 10.2 GM 120 PUFF INH IH (20:06)
--- NOTE | 2020-08-22 20:44 | ROE_ITS ---
Date of service: 05/05/20 Time of Service: 09:55 Operative Note Operative Note DATE OF PROCEDURE: 08/22/20 PRE-OP DIAGNOSIS: Retained Hardware - Right Tibia Right Ankle Deformity and Arthritis POST-OP DIAGNOSIS: same PROCEDURE: Removal of tibial nail - right side; Arthrodesis of right subtalar and tibiotalar joint with tibiotalocalcneal nail SURGEON: Arcenio Schofield BRAKE DRUM LATHE OPERATOR: True Andujar ANESTHESIA: GETA and regional ESTIMATED BLOOD LOSS: 300 PATHOLOGY: none sent TOURNIQUET TIME: 0 COMPLICATIONS: None Patient was transported to: PACU Patient's condition: stable Implants: Synthes [id number] TTC Nail Indications: Cole is a 45-year-old male who I have seen previously for 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 I reviewed the possible treatment options and given the fracture, I recommended operative fixation. I discussed the technical details of the surgery. I reviewed the risks such as bleeding, infection, pain, stiffness, malunion, nonunion, hardware prominence, hardware faiilure, malr otation, damage to nerves and vessels, blood clot. Despite these risks, Cole agreed to proceed. Findings: There was a tibial nail which was removed without significant difficulty. After removal of this nail the subtalar joint and tibiotalar joint was prepared by removing all cartilage and fish scaling the subchondral bone. Alignment was maintained and the joints held with a Synthes [id number] TTC nail. Procedure Description: Cole was greeted in the preoperative area. The consent was reviewed the patient and signed. The history of physical was updated. Cole was taken for a peripheral nerve block. He was then transferred to the operating room. Once in the operating room, general anesthesia was administered. Cole was placed in the supine position on the operating room table with his arms secured and well-padded. He had a significant abduction and external rotation contracture of both hips which really made positioning quite challenging. A bump was placed underneath the right greater trochanter to assist with some internal rotation of the leg. All bony prominences were well padded. Prophylactic antibiotics, Cefazolin 2 grams, was given for prophylactic antibiotics. A timeout was performed for safe surgery. The right leg was prepped with Chloraprep. The leg was draped with a stockinette and extremity drape. Attention was then first turned to removal of the tibial nail. Using fluoroscopy I identified the location of the 5 screws fixing the nail to the tibia. The screws were removed without difficulty. The sites of the screw removals were irrigated and closed with 4-0 nylon. Using the previous incision from the anterior knee, then made an incision over the anterior knee through the skin and bursal tissue. The peritenon was identified and incised separately from the tendon itself. The patellar tendon was then incised in the midline in line with the fibers. Blunt dissection was carried deeper to identify the defect of the proximal tibia where the nail was. Using a guidewire placed into the proximal portion of the nail to make sure I was in the correct location. I used the cautery to clear all some the scar tissue on top of the nail. There was a small amount of bone around the edges. Therefore, I took a curette to remove the bone from the entry point of the nail. Using the [employer] extraction connector, I threaded into the top of the nail. A back slap hammer was utilized to help withdrawal the nail. Remove the nail was difficult but was slowly able to be removed without any signs of fracture or impingement at the knee. With the nail out, I irrigated the anterior aspect of the knee and its proximal entry site. The patellar tendon was then closed with a few interrupted #1 Vicryl's. The peritenon was closed with a running 2-0 Vicryl. Deep tissues were reapproximated with a 2-0 Vicryl. Attention was then turned to the ankle portion of the case. An approximate 15 cm decision was then made overlying the lateral aspect of the ankle. This was taken down over the fibula across the tip of the fibula towards the base of the fourth metatarsal. There were other incision seen about the ankle which were quite old and well-healed. This more anterior lateral incision would make access to the subtalar joint quite difficult and therefore I space my incision slightly more posteriorly than desired to leave room around the previous anterolateral incision site. Once the skin was incised I went sharply down to the fibula. I raised flaps and full-thickness form to avoid devascularization of the skin flap themselves. Posterior soft tissues were left attached to the fibula. Dissection was carried anteriorly along the fibula into its attachments to the talus. The space of the sinus Tarsi is also excised and portions of the extensor digitorum brevis were elevated to expose the subtalar joint. Using an oscillating saw I resected a 1 cm wedge from the fibula proximally 10 cm proximal to the tip of the fibula. This was removed and later used for bone graft. There was a suture anchor seen coming off of the anterior aspect of the fibula which was removed. The more distal suture anchor was not visible and was not removed. The fibula was then externally rotated to get better exposure to the tibiotalar joint. All attachments from the medial surface of the fibula were removed once again leaving posterior attachments. Using the oscillating saw I resected a 2 to 3 mm wafer of bone from the medial aspect of the fibula. This bone would also be utilized for bone graft later in the case but also expose cancellous surface of the fibula for an external fibular strut assisting in union. Starting with the subtalar joint I began resecting residual cartilage. Using both joint distractors and lamina spreaders, I gained access to the subtalar joint. There is notable contraction of tissues on the medial side of the subtalar joint. The posterior facet was easily prepared and was able to be opened up. However, the anterior facet and the portion of the undersurface of the talar head was quite challenging to access. Manual ambulation using an osteotome as well as a curette was utilized to free up the medial soft tissues which allowed some better repositioning of the calcaneus. I was then able to better prepare the remainder of the calcaneus and the undersurface of the talus. Once all cartilage was removed I then used a small osteotome to fish scale the surfaces of the talus and the calcaneus. There is abundant blood flow in this area and no residual dense subchondral bone. In the areas where the bone was more dense I did place a few 1.5 mm drill holes in addition to the scaling of the surface. Attention was then turned to the tibiotalar joint. This was distracted easily and I was able to remove all residual cartilage. There is much less cartilage in this joint space. However, the bone was quite dense. Therefore I used a curette to be more aggressive with resecting down through any eburnated bone. Once again, I used a small osteotome to scale the surfaces of the tibia and the talus for better potential union. There is still a slight varus deformity to the tibiotalar joint so I used a bur to smooth down the lateral surface of the talus and tibia. Likewise, the subtalar joint like to stay in some varus. I was able to use a curette and a bur to help smooth down some the lateral prominences to allow the subtalar joint to fall into slight or varus. The posterior facet was well compressed but there was some gapping on the lateral aspect of the subtalar joint. I used the bone graft including the wedge of fibula to fill the space. With the hindfoot held in some slight calcaneal valgus and in neutral dorsiflexion, I drove a guidewire from the lateral prominence of the calcaneus into the central portion of the talar head. This was confirmed on fluoroscopy. Once in this position a longitudinal incision was made over the plantar aspect of the foot and blunt dissection was carried down to the heel. A soft tissue retractor was placed down onto the bone of the calcaneus and the calcaneus and talus was prepared with a 13 mm drill. An opening drill then was placed through this and into the tibia. While holding reduction I placed a guidewire up into the tibia and began to ream up to 12 mm. This prepared a space for a 10 mm nail. 10 mm was the size of the nail removed from the tibia as well and there was chatter experienced starting at 10 mm. Using the guidewire, the length of the nail was selected. The 240 mm nail, the longest, provided substantial distance past the previous fracture which would be encouraged over the shorter nails. The Synthes 10 mm x 240 mm tibiotalarcalcaneal fusion nail was then open on the back table. While holding the reduction the nail was then inserted with light mallet blows. This went in smoothly and the depth of the nail was confirmed on fluoroscopy. The joint surface appeared to be mostly compressed in the alignment was desirable. It seemed that we may have lost some of our dorsiflexion but the foot was in a neutral position. The targeting arm was placed in the screw and drill guides were position for both the calcaneus and the talus screws to confirm that we were able to accommodate the screws appropriately. The talus screw was very distal but it allowed to place 2 locking screws in the calcaneus. Therefore, I started by placing 2 locking screws in the calcaneus. A linear incision was made overlying the posterior aspect of the calcaneus this was taken down sharply through the skin and through the fibers of the Achilles tendon. A soft tissue protector was placed deep down to the calcaneus. Screw path was drilled, measured from the calibrated drill, and then appropriate size screw was placed. This was repeated for both locking screws distally. Following this, I impacted the nail to compress the subtalar and tibiotalar joints. There is no visible joint space on the x-ray. Prior to this as well, the bone graft had been confirmed to be in the appropriate position of the subtalar joint and the tibiotalar joint and I had added some demineralized bone matrix to this as well. The talar screw was then placed in a similar fashion utilizing a lateral based incision and going posteriorly behind the fibula but in front of the peroneal tendons. The screw was drilled and then placed without difficulty. Once again, some light taps of the nail were confirmed to reduce the tibiotalar joint completely. I then locked the TTC nail on to the tibia using 2 screws from the targeting arm. These had excellent purchase and were both bicortical. The target arm is then removed and x-rays were obtained which showed that all the screws in appropriate position. The talar screw was to the very end of the talus was not penetrating the joint. All these wounds were then thoroughly irri gated. Irrisept chlorhexidine solution was also utilized. The lateral portion of the talus and tibia was roughened with a rongeur and then the fibula remnant was then positioned onto the lateral talus and tibia and secured with two 3.5 mm cannulated screws. X-rays also utilized to confirm that these were properly positioned they had excellent purchase and bite. The deep tissue of the lateral ankle was then reapproximated with 0 Vicryl. There is no true fashion to reapproximate. There was significant bulk of the sinus Tarsi and around the distal fibula from his previous surgeries but, at risk of possible devascularization of the soft tissues, I did not debride this down and left the quite full. The skin was able to be brought together with no tension. The skin was closed with a 4-0 nylon. The remainder of the incision sites were closed with a 2-0 Vicryl for the deeper tissue and a 4-0 nylon for the skin. All the wounds were dressed with Xeroform, 4 x 4's, Kerlix and Riki wrap at the knee and a thick Rodriguez type soft dressing at the level of the ankle. At the end of the case, all counts were correct. Cole tolerated the procedure well without known complication and was taken to the PACU for recovery. Physical therapy will start post-operatively, touchdown weightbearing only with unrestricted knee range of motion. Anticoagulation will start within 12-24 hours. 3 doses of post-operative antibiotics for prophylaxis will be administered.
[2020-08-22] MEDS: ceFAZolin 1 GM/50 ML BAG IVPB (21:40)
[2020-08-22] MEDS: Ketorolac 15 MG/ML VIAL IVP (21:40)
[2020-08-23] MEDS: Normal Saline Flush 10 ML SYR IV ×2 (03:36→10:09)
[2020-08-23] MEDS: Ketorolac 15 MG/ML VIAL IVP ×2 (03:36→10:08)
[2020-08-23 03:43] VITALS: BP 90/50; PULSE 61; RESP 18; TEMP 36; O2SAT 96
[2020-08-23] MEDS: Lactated Ringers 1,000 ML 80 ML IV (03:52)
[2020-08-23 04:35] VITALS: BP 90/53
[2020-08-23] MEDS: ceFAZolin 1 GM/50 ML BAG IVPB (05:42)
--- NOTE | 2020-08-23 06:27 | W.PM.DS.N ---
Date of service: 08/23/20 Time of Service: 07:29 DS: Diagnosis Discharge Diagnosis (1) Right ankle joint deformity: Status: Acute (2) Arthritis of right ankle: Status: Acute (3) Arthritis of right subtalar joint: Status: Acute (4) Tibial fracture: Status: Acute Discharge Plan Disposition Patient Disposition: HOME Condition: Good Discharge Details Reason For Visit: HARDWARE REMOVAL Admit Date/Time: 08/22/20 07:50 Admit Provider: Arcenio Schofield Attending Provider: Arcenio Schofield Primary Care Provider: Brian Longo Hospital Course Hospital Course: Patient was admitted to the medical/surgical floor following the procedure. The surgery was tolerated well without any notable medical, surgical, or anesthetic complications. Mobilization began postoperatively. He was voiding spontaneously. Vitals were stable. Physical therapy worked with the patient and was cleared for discharge home. No acute medical issues. Pain was controlled on oral regimen. Home Meds and New Rx's Prescriptions: New acetaminophen 500 mg tablet 1,000 mg PO Q8H PRN (Reason: pain) Qty: 90 RF: 3 oxycodone 5 mg tablet 5 mg PO Q4H Qty: 15 RF: 0 Continued sertraline 100 mg tablet 100 mg PO DAILY Qty: 90 RF: 3 pantoprazole 40 mg tablet,delayed release (DR/EC) 40 mg PO BID Qty: 180 RF: 3 atorvastatin 40 mg tablet 40 mg PO DAILY Qty: 90 RF: 3 budesonide-formoterol [Symbicort] 80-4.5 mcg/actuation HFA aerosol inhaler 1 puff Inhalation BID Qty: 1 RF: 11 gabapentin 100 mg capsule 100 mg PO BID Qty: 60 RF: 5 albuterol sulfate [ProAir HFA] 90 mcg/actuation HFA aerosol inhaler 2 puff Inhalation Q6H PRN PRN (Reason: bronchospasm) Qty: 1 RF: 3 ezetimibe [Zetia] 10 mg tablet 10 mg PO DAILY Qty: 90 RF: 3 ipratropium-albuterol 0.5 mg-3 mg(2.5 mg base)/3 mL solution for nebulization 3 ml PO Q4H PRN (Reason: shortness of breath) Qty: 50 RF: 1 Changed ibuprofen 800 mg tablet 800 mg PO Q8H PRNQty: 90 RF: 0 Discontinued ibuprofen 800 mg Tablet 800 mg PO Q8H PRNQty: 30 RF: 0 acetaminophen 500 mg capsule 500 mg PO Q6H PRN PRN (Reason: pain) Qty: 60 RF: 0 No Action baclofen 10 mg tablet 10 mg PO TID PRN (Reason: muscle spasm) Qty: 30 RF: 1 (DME) Comp-Air Elite Comp Neb System 1 EACH device 1 ea Miscellaneous q 4 h prn Qty: 1 RF: 0 Discharge Instructions Additional Instructions: Activity: You are TOUCHDOWN WEIGHT BEARING. This means that you may rest your foot on the ground but you are not to put all of your weight on it. You should use crutches or your knee scooter to keep weight off of the foot/ankle. You do have a wound on the knee and this may hurt while putting weight on it with your scooter but you may do so and move it as tolerated. No restrictions to the knee. You should keep the leg elevated as much as possible. You may wiggle your toes and move your hip and knee. Dressings: You should keep your dressings clean and dry. Do NOT get wet or dirty. If you have issues with your dressings, please call the office at [phone] or the hospital after hours. You should just keep these dressings in place but you may replace them if they start to unravel or become soiled or dirty. Medications: - You should take Tylenol and Ibuprofen around the clock for baseline pain. - You have been prescribed a stronger narcotic, Oxycodone, for breakthrough pain. - You should take a Baby Aspirin (81mg) twice a day for blood clot prevention. Follow-up: 2 weeks Referrals: Arcenio Schofield MD [ [facility] STAFF PHYSICIAN] - Activity:: Activity as Tolerated Equipment/Supplies:: Walker Diet:: As Tolerated Discharge Orders Discharge Orders: Discharge Order (Routine); Ordered 08/23/20 Ordered By: Arcenio Schofield DS: Summary Status at Discharge Functional status at discharge: uses cane/walker Overall status at discharge: patient is not back to baseline Mental Status: mental status grossly normal Speech and Movement: speech and movement normal Mood: congruent mood Affect: normal affect Exam Psych Mental Status: mental status grossly normal Speech and Movement: speech and movement normal Mood: congruent mood Affect: normal affect DS: Data Vitals/I&O Vitals and I&O: Vital Signs Temperature 36.8 C 08/22/20 16:49 Pulse 80 08/22/20 16:49 Pulse Rhythm Regular 08/22/20 08:14 Respiratory Rate 23 08/22/20 16:49 Respiratory Depth Normal 08/22/20 08:14 Blood Pressure 110/50 L 08/22/20 16:49 Pulse Oximetry 94 08/22/20 16:49 Respiratory End-tidal CO2 30 08/22/20 16:49 Oxygen Delivery Method Room Air 08/22/20 16:49 Oxygen Flow Rate 0 08/22/20 08:14 Pain Level 0 08/22/20 16:49 Intake & Output 08/21/20 08/22/20 08/22/20 23:59 11:59 23:59 Intake Total 110 / 870 760 / 870 Output Total 300 / 300 Balance 110 / 570 460 / 570 Weight 78 kg Intake: IV 110 / 870 760 / 870 Output: Estimated Blood Loss 300 / 300 Other: Emesis Description None PFSH Medical History Anxiety Arthritis Asthma Depression with anxiety GERD (gastroesophageal reflux disease) Hyperlipidemia Lung nodules tobacco abuse Surgical History Excision, Skin Mass 2008-LUQ LIPOMA Fracture, Closed Treatment ANKLE History of back surgery History of surgical 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 Family History Father Alcohol abuse Essential hypertension Heart disease Neoplasm Stroke Mother Essential hypertension COPD (chronic obstructive pulmonary disease) Depression Hyperlipidemia Neoplasm Stroke Asthma SIBLING ADHD (attention deficit hyperactivity disorder) Sister No problems noted. Brother Essential hypertension Grandfather Diabetes Alcohol abuse Grandfather Brain tumor Stroke Grandmother Diabetes Grandmother Heart disease Neoplasm Cervical cancer Stroke Family History Blood disorder Neoplasm Stomach,melanoma Social History Smoking/Tobacco Use Status: Current every day Tobacco Type: cigarettes Smoking packs per day: 0.5 Smoking cigarettes per day: 10.0 Smoking risk assessment performed?: Yes Alcohol Intake: current Alcohol Intake frequency: holidays/special occasions only Drug use: Never Substance use type: does not use Current gender identity: male Do you feel safe at home: Yes Do you feel safe in your relationship?: Yes
[2020-08-23 07:40] VITALS: BP 118/64; PULSE 76; RESP 18; TEMP 36.8; O2SAT 98
[2020-08-23] MEDS: Budesonide/Formoterol 80/4.5 10.2 GM 120 PUFF INH IH (07:52)
[2020-08-23] MEDS: Pantoprazole 40 MG TABCR PO (08:35)
[2020-08-23] MEDS: Ezetimibe 10 MG TAB PO (08:35)
[2020-08-23] MEDS: Acetaminophen 500 MG TAB 1000 MG PO (08:35)
[2020-08-23] MEDS: Gabapentin 100 MG CAP PO (08:36)
[2020-08-23] MEDS: Sertraline 50 MG TAB 100 MG PO (08:36)
--- NOTE | 2020-08-23 09:46 | IN_ITS ---
Date of service: 08/23/20 Time of Service: 08:46 PT Notes Visit Reasons: HARDWARE REMOVAL Physical Therapy Inpatient Initial Evaluation Date: 08/23/2020 Referring Doctor: Arcenio Schofield MD PT Orders: PT CONSULT: Status post Ortho surgery. Status post removal of tibial nail and hindfoot nail placement. NWB right LE. Knee ROM. Precautions: Fall. Standard. TDWB on R LE. Patient Profile/Admitting Diagnosis: 45-year-old male with arthritis of the right subtalar joint and of her right ankle with right ankle joint deformity and tibial fracture status post right ankle hardware explantation and arthrodeses of the subtalar and the tibiotalar joint. 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 Social History/Home Situation: Lives with in a private home with half step to get into the house with a wooden handrail on the left side getting in. Equipment Owned/DME: Knee scooter Subjective: Complained about abdominal pain due to his irritable bowel syndrome as he has not had a bowel movement since admission. Reported continued numbness from the right mid leg down the right foot. Objective: General Observation: Riki wraps to right LE. IV in right UE. TEDS on left leg. Mental Status: Alert and oriented x 4 Pain: None reported ROM: Right Upper Extremity: Shoulder Flexion WFL. Shoulder abduction WFL. Elbow flexion WFL. Wrist flexion WFL. Opening and closing of hand WFL. Left Upper Extremity: Shoulder Flexion WFL. Shoulder abduction WFL. Elbow flexion WFL. Wrist flexion WFL. Opening and closing of hand WFL. Right Lower Extremity: Hip flexion WFL. Hip abduction WFL. Knee flexion WFL. Ankle dorsiflexion NT. See most recent SCHEDULER [employer]YOR notes.. Ankle plantarflexion NT. Left Lower Extremity: Hip flexion WFL. Hip abduction WFL. Knee flexion WFL. Ankle dorsiflexion WFL. Ankle plantarflexion WFL. Strength: Right Upper Extremity: Shoulder flexors 5/5. Shoulder abductors 5/5. Elbow flexors 5/5. Elbow extensors 5/5. 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 Left Upper Extremity: Shoulder flexors 5/5. Shoulder abductors 5/5. Elbow flexors 5/5. Elbow extensors 5/5. 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 Right Lower Extremity: Hip flexors 5/5. Hip abductors 5/5. Knee flexors 4/5. Knee extensors NT. Ankle dorsiflexors NT. Ankle plantarflexors NT. Left Lower Extremity:Hip flexors 5/5. Hip abductors 5/5. Knee flexors 5/5. Knee extensors 5/5. Ankle dorsiflexors 5/5. Ankle plantarflexors 5/5. Sensation: Intact as to pain and pressure on bilateral lower extremities. Bed Mobility/Transfers: Rolling independent Supine to sit independent Sit to supine independent Sit to stand standby assist Stand to sit standby assist Bed to chair standby assist standby assist Chair to bed standby assist Gait: 150 feet x 2 using a front wheeled walker touchdown weight bearing on the right LE without complaints of pain. Balance: Static Sitting: Normal Dynamic Sitting: Normal Static Standing: Fair with front wheeled walker Dynamic Standing: Fair with front wheeled walker Special Tests: Mobility Limitations Standardized Measure [facility] AM-PAC 6 clicks Basic Mobility Inpatient Short Form: Raw Score: 22 CMS Score: 21% deficit Informed Consent/Education: Patient instructed in purpose of PT consult and plan of care. Assessment: Cole will require the use of a front wheeled walker for all mobility ADL performance in order to maximize independence and reduce fall risk at home. He demonstrates good weight bearing compliance of TDWB and agreed to do hip and knee range of motion exercises at home. He will have the support of his as he recovers at home. Patient presents with clinical signs and symptoms consistent with current/admitting diagnoses that have resulted to mobility limitations, gait instability, generalized weakness, and impairment of motor control as demonstrated by the following impairment level findings: 1. Decreased strength to right ankle major muscle groups due to postoperative status 2. Impaired sitting/standing balance 3. Impaired activity tolerance 4. Limitation of joint range of motion in right ankle postoperative status Impairments are contributing to the following functional limitations: 1. Inability to safely ambulate without assistive device 2. Increase completion time for mobility ADL performance 3. Increased fall risk 4. Inability to negotiate steps alone safely Patient is assessed as a 79638 moderate complexity based on the following: History: 45 [id number] with impairment level findings, functional limitatio ns, and past medical history as indicated above Examination: Demonstrable impairment in strength, balance, and mobility level with underlying impairments and functional limitations as documented above Presentation:Evolving Decision Makin moderate complexity Goals: N/A. PT eval and 1 treatment session only for education and training on functional mobility performance fusing the front wheeled walker and on HEP. Plan of Care/Treatment Plan: N/A. PT eval and 1 treatment session only for education and training on functional mobility performance fusing the front wheeled walker and on HEP. DISCHARGE RECOMMENDATIONS: Home when medically cleared by orthopedic surgeon. Patient physical therapy services to facilitate return to premorbid independent level once cleared by orthopedic surgeon. Front wheeled walker has been assembled, fitted, and provided for patient prior to today's discharge. TREATMENT CODE/TIME: 28968 x 25 minutes, 19616 x 14 minutes beginning at 8:46 AM. Thank you for the opportunity to participate in the care of this patient. Jennifer Peck PT, DPT, CLT [facility] [place], [place]
[2020-08-23] MEDS: Aspirin E.C. 81 MG TABEC PO (10:08)
== END 2020-08-23 10:42 | disposition home or self-care (01) ==
LOC: PDS 08:24 → MS 17:33 → PDS 23:34 → MS 23:35
PROVIDERS: Admitting Provider Student in an Organized Health Care Education/Training Program; PCP Family Medicine; Visit Provider Student in an Organized Health Care Education/Training Program
PROC: (CPT 20680; principal; 2020-08-22 10:30)
PROC: (CPT 27870; 2020-08-22 10:30)
DX: M19.071 Primary osteoarthritis, right ankle and foot (principal); Z47.2 Encounter for removal of internal fixation device; F17.210 Nicotine dependence, cigarettes, uncomplicated; K21.9 Gastro-esophageal reflux disease without esophagitis; J44.9 Chronic obstructive pulmonary disease, unspecified
CPT/HCPCS: 20680; 28725; 27870; 76000; 76942; 94640; 97162; 97530; NC; 73590; G0378; J0690; J1100; J1885; J2250; J2405

== ENCOUNTER 2020-08-26 20:55 | Emergency (ER) | payer MEDICARE, MEDICAID, SELFPAY ==
[2020-08-26 21:00] VITALS: BP 116/53; PULSE 108; RESP 20; TEMP 37.5; O2SAT 98
--- NOTE | 2020-08-26 21:09 | W.ED.GENAD ---
Discharge Plan Disposition Patient Disposition: HOME Condition: Good Discharge Details Clinical Impression: Post-operative pain Primary Care Provider: Brian Longo ED Provider: Kun Gerard Home Meds and New Rx's Prescriptions: Continued sertraline 100 mg tablet 100 mg PO DAILY Qty: 90 RF: 3 baclofen 10 mg tablet 10 mg PO TID PRN (Reason: muscle spasm) Qty: 30 RF: 1 pantoprazole 40 mg tablet,delayed release (DR/EC) 40 mg PO BID Qty: 180 RF: 3 atorvastatin 40 mg tablet 40 mg PO DAILY Qty: 90 RF: 3 budesonide-formoterol [Symbicort] 80-4.5 mcg/actuation HFA aerosol inhaler 1 puff Inhalation BID Qty: 1 RF: 11 gabapentin 100 mg capsule 100 mg PO BID Qty: 60 RF: 5 albuterol sulfate [ProAir HFA] 90 mcg/actuation HFA aerosol inhaler 2 puff Inhalation Q6H PRN PRN (Reason: bronchospasm) Qty: 1 RF: 3 (DME) Comp-Air Elite Comp Neb System 1 EACH device 1 ea Miscellaneous q 4 h prn Qty: 1 RF: 0 ezetimibe [Zetia] 10 mg tablet 10 mg PO DAILY Qty: 90 RF: 3 ipratropium-albuterol 0.5 mg-3 mg(2.5 mg base)/3 mL solution for nebulization 3 ml PO Q4H PRN (Reason: shortness of breath) Qty: 50 RF: 1 oxycodone 10 mg tablet 10 mg PO Q4H MDD 60mg PRN (Reason: pain) Qty: 18 RF: 0 acetaminophen 500 mg tablet 1,000 mg PO Q8H PRN (Reason: pain) Qty: 90 RF: 3 ibuprofen 800 mg tablet 800 mg PO Q8H PRNQty: 90 RF: 0 Discharge Instructions Additional Instructions: At this time the pain that you are feeling is secondary to the surgery. There are no signs of compartment syndrome infection or other significant abnormality. Inflammation from the surgery can cause a significant pain. Please take your pain pills every 4 hours as needed, and continue to ice your foot aggressively. Keep it elevated at all times. Follow-up with Dr. Schofield tomorrow morning. If you notice any worsening of your symptoms, or any new symptoms such as worsening pain, worsening pressure, decreased sensation, change in color for your foot, vomiting, diarrhea, fever, chills, shortness of breath, chest pain, numbness, weakness, or fainting , please return immediately to the emergency department for reevaluation. As always, it was a pleasure participating in your medical care today. Referrals: Arcenio Schofield MD [ [facility] STAFF PHYSICIAN] - Medical Decision Making Cole is a 45-year-old extremely pleasant male who presents today on postop day 4 after Removal of tibial nail - right side; Arthrodesis of right subtalar and tibiotalar joint with tibiotalocalcneal nail. He presents today for complaint of pain in his foot. He describes it as a severe ache with mild pressure. He has been taking his home narcotic medication as prescribed but the pain has not subsided. He does state that he has been doing his best to keep it up and elevated. He did contact Dr. Schofield earlier whose recommendation was to unwrap the Riki wrap. Unfortunately he had no improvement of his symptoms with that. He came to the ER for further evaluation. He does admit to decreased sensation in his toes, but pain for 4 hours. He denies any significant calf pain. He denies fever or chills. No other complaints at this time. Physical exam demonstrates good postoperative incision sites, they are clean dry and intact, no signs of cellulitis significant redness drainage or discharge. Patient is able to wiggle his toes, he does have decreased sensation only for the second third and fourth toe, however he is able to move them all well. The dorsal and plantar aspect of the foot has good sensation. Capillary refill is notably present and brisk in all toes. Symptoms appear inconsistent at this time clinically with compartment syndrome. No calf tenderness, no swelling in the calf. At this time we did contact Dr. Schofield and discussed the case with him. With a reassuring exam it is felt that this is likely postoperative pain at this stage, compounded by the swelling of the procedure. We will maintain elevation, treat with Toradol and morphine and aggressive icing. No repeat imaging or blood work at this time. If patient improves he can be discharged home, otherwise if he does not he may require admission for pain control. 10:14 PM Patient is feeling much better at this time, repeat exam continues to demonstrate good mobility of the toes, good capillary refill, sensation has returned and resolved. Patient feels that his pain is at a point that he can be well controlled at home. With no signs of compartment syndrome, no evidence of neurovascular compromise they feel the patient can be discharged. I spoke with both he and his and made it clear that I am available for consultation all night, and I made it very clear as to what signs and symptoms would be concerning that would merit immediate return. I have extensively reviewed the treatment plan and discharge instructions with the patient and their family. I have addressed all patient concerns at this time. The patient and family was made aware of what symptoms to monitor for that would warrant a return to the emergency department. We have rebandaged the foot.discussed the plan with the patient and family, they demonstrate verbal understanding and agreement with our assessment and plan at this time. HPI General Date/Time Provider Initiated Documentation: 08/26/20 20:58. HPI Narrative: Cole is a 45-year-old extremely pleasant male who presents today on postop day 4 after Removal of tibial nail - right side; Arthrodesis of right subtalar and tibiotalar joint with tibiotalocalcneal nail. He presents today for complaint of pain in his foot. He describes it as a severe ache with mild pressure. He has been taking his home narcotic medication as prescribed but the pain has not subsided. He does state that he has been doing his best to keep it up and elevated. He did contact Dr. Schofield earlier whose recommendation was to unwrap the Riki wrap. Unfortunately he had no improvement of his symptoms with that. He came to the ER for further evaluation. He does admit to decreased sensation in his toes, but pain for 4 hours. He denies any significant calf pain. He denies fever or chills. No other complaints at this time. Related Data Home Medications Medication Instructions Recorded Confirmed Comp-Air Elite Comp Neb System #1 ea 07/16/16 08/20/20 pantoprazole 40 mg tablet,delayed 40 mg PO BID #180 tab-cap 08/24/19 08/26/20 release sertraline 100 mg tablet 100 mg PO DAILY #90 tab 10/11/19 08/26/20 ezetimibe 10 mg tablet 10 mg PO DAILY #90 tab-cap 10/26/19 08/26/20 albuterol sulfate 90 mcg/actuation 2 puff INHALATION Q6H PRN PRN #1 04/04/20 08/26/20 aerosol inhaler inh atorvastatin 40 mg tablet 40 mg PO DAILY #90 tab-cap 04/04/20 08/26/20 budesonide-formoterol HFA 80 1 puff INHALATION BID #1 inhaler 04/04/20 08/26/20 mcg-4.5 mcg/actuation aerosol inhaler gabapentin 100 mg capsule 100 mg PO BID #60 cap 04/04/20 08/26/20 ipratropium 0.5 mg-albuterol 3 mg 3 ml PO Q4H PRN #50 vial 04/05/20 08/26/20 (2.5 mg base)/3 mL nebulization soln baclofen 10 mg tablet 10 mg PO TID PRN #30 tab 04/26/20 08/26/20 acetaminophen 1,000 mg PO Q8H PRN #90 tab 08/22/20 08/26/20 ibuprofen 800 mg PO Q8H PRN #90 tab 08/22/20 08/26/20 oxycodone 10 mg tablet 10 mg PO Q4H PRN #18 tab MDD 60mg 08/25/20 Previous Rx's Medication Instructions Recorded pantoprazole 40 mg tablet,delayed 40 mg PO BID #180 tab-cap 08/24/19 release sertraline 100 mg tablet 100 mg PO DAILY #90 tab 10/11/19 ezetimibe 10 mg tablet 10 mg PO DAILY #90 tab-cap 10/26/19 albuterol sulfate 90 mcg/actuation 2 puff INHALATION Q6H PRN PRN #1 04/04/20 aerosol inhaler inh atorvastatin 40 mg tablet 40 mg PO DAILY #90 tab-cap 04/04/20 budesonide-formoterol HFA 80 1 puff INHALATION BID #1 inhaler 04/04/20 mcg-4.5 mcg/actuation aerosol inhaler gabapentin 100 mg capsule 100 mg PO BID #60 cap 04/04/20 ipratropium 0.5 mg-albuterol 3 mg 3 ml PO Q4H PRN #50 vial 04/05/20 (2.5 mg base)/3 mL nebulization soln baclofen 10 mg tablet 10 mg PO TID PRN #30 tab 04/26/20 acetaminophen 1,000 mg PO Q8H PRN #90 tab 08/22/20 ibuprofen 800 mg PO Q8H PRN #90 tab 08/22/20 oxycodone 10 mg tablet 10 mg PO Q4H PRN #18 tab MDD 60mg 08/25/20 Allergies Allergy/AdvReac Type Severity Reaction Status Date / Time Fish Containing Products Allergy Intermediate hives Verified 08/22/20 08:07 Penicillins Allergy Mild Skin Rash Verified 08/22/20 08:07 aspirin AdvReac Intermediate epistaxis Verified 08/22/20 08:07 seafood Allergy Intermediate Hives Uncoded 08/22/20 08:07 hydrocodone-homatropine AdvReac Intermediate GI UPSET Uncoded 08/22/20 08:07 General Stated Complaint: Orthopedic DONG: 3 Review of Systems All systems reviewed & are unremarkable except as noted in HPI and below PFSH Medical History Anxiety Arthritis Asthma Depression with anxiety GERD (gastroesophageal reflux disease) Hyperlipidemia Lung nodules tobacco abuse Surgical History Excision, Skin Mass 2008-LUQ LIPOMA Fracture, Closed Treatment ANKLE History of back surgery History of surgical 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 reports putting hand in insulation blower Hx of arthroscopic knee surgery NECK SURGERY 09/19-WITH METAL PLATE Open Carpal Tunnel release 204-RIGHT Tibial fracture S/P tibial nail fixation. Family History Father Alcohol abuse Essential hypertension Heart disease Neoplasm Stroke Mother Essential hypertension COPD (chronic obstructive pulmonary disease) Depression Hyperlipidemia Neoplasm Stroke Asthma SIBLING ADHD (attention deficit hyperactivity disorder) Sister No problems noted. Brother Essential hypertension Grandfather Diabetes Alcohol abuse Grandfather Brain tumor Stroke Grandmother Diabetes Grandmother Heart disease Neoplasm Cervical cancer Stroke Family History Blood disorder Neoplasm Stomach,melanoma Social History Smoking/Tobacco Use Status: Current every day Tobacco Type: cigarettes Smoking packs per day: 0.5 Smoking cigarettes per day: 10.0 Smoking risk assessment performed?: Yes Alcohol Intake: current Alcohol Intake frequency: holidays/special occasions only Drug use: Never Substance use type: does not use Current gender identity: male Do you feel safe at home: Yes Do you feel safe in your relationship?: Yes Exam Narrative Exam Narrative: 1.Const: Well-nourished, Well-developed, appearing stated age 2.Eyes: PERRL, no conjunctival injection, and symmetrical lids. 3.ENT: Atraumatic external nose and ears. Moist MM. Neck: Symmetric, trachea midline, No thyromegaly. 4.CVS: +S1/S2, No murmurs or gallops. Peripheral pulses 2+ and equal in all extremities. Brisk capillary refill in all extremities. 5.RESP: Unlabored respiratory effort. Clear to auscultation bilaterally. No wheezes rales or rhonchi 6.GI: Soft, Nontender/Nondistended, No hepatosplenomegaly. No guarding or rebound. 7.MSK: Right ankle demonstrates mild swelling in the ankle and foot. There is notably present sensation around the ankle the dorsal and plantar aspect of the foot. There is diminished sensation for toes 2 3 and 4, however this does appear to be slightly intermittent. Brisk capillary refill for all toes. He is able to wiggle his great toe and the other 4 toes. Although there is mild swelling the area in the calf ankle and foot does not appear overly tense. Symptoms are inconsistent with compartment syndrome. Dorsalis pedis pulses palpable. Incision sites are otherwise clean dry and intact with no bleeding bruising redness or discharge 8.Skin: Warm, Dry. No rashes or lesions. Please see musculoskeletal 9.Neuro: operating room registered nurse II-XII grossly intact. Sensation grossly intact, no focal neurologic deficits. 10.Psych: (AAO) x3. Appropriate mood and affect Course Vital Signs Vital signs: Vital Signs Temperature 37.5 C 08/26/20 21:00 Pulse 108 H 08/26/20 21:00 Respiratory Rate 20 08/26/20 21:00 Blood Pressure 116/53 L 08/26/20 21:00 Pulse Oximetry 98 08/26/20 21:00 Temperature 37.5 C 08/26/20 21:00 Temperature Source Skin 08/26/20 21:00 Pulse 108 H 08/26/20 21:00 Respiratory Rate 20 08/26/20 21:00 Blood Pressure 116/53 L 08/26/20 21:00 Pulse Oximetry 98 08/26/20 21:00 Pain Level 10 08/26/20 21:00
[2020-08-26] MEDS: Ketorolac 30 MG/ML VIAL IVP (21:19)
[2020-08-26 21:35] VITALS: BP 106/56; PULSE 90; RESP 17; O2SAT 97
[2020-08-26] MEDS: HYDROmorphone 2 MG/ML VIAL 1 MG IVP (21:43)
[2020-08-26 22:27] VITALS: BP 102/59; PULSE 86; RESP 16; TEMP 37.1; O2SAT 94
[2020-08-26] MEDS: HYDROmorphone 2 MG/ML VIAL 0.5 MG IVP (22:31)
--- NOTE | 2020-08-26 22:40 | NUR.NOTE ---
xeroform, telfa, bulky dsg. loose alexander wrap per MD Gerard. +PP, +CSM. Pt comfortable using own walker. All surgical sites intact, no redness, swelling or drainage.small amount of blood oozing from right lateral incision.
== END 2020-08-26 22:39 | disposition home or self-care (01) ==
PROVIDERS: Emergency Provider Student in an Organized Health Care Education/Training Program; PCP Family Medicine
DX: M25.571 Pain in right ankle and joints of right foot (principal); G89.18 Other acute postprocedural pain; Y83.4 Other reconstructive surgery as the cause of abnormal reaction of the patient, or of later complication, without mention of misadventure at the time of the procedure
CPT/HCPCS: 96374; 96375; 96376; 99284; J1885

== ENCOUNTER 2020-08-30 15:09 | Outpatient (CLI) | payer MEDICARE, MEDICAID, SELFPAY ==
--- NOTE | 2020-08-30 15:00 | DI.RAD_ITS ---
EXAM: XR ANKLE RT 2V and XR tib/fib RT CLINICAL HISTORY: f/u R ankle/subtalar fusion. TECHNIQUE: 2D digital imaging was performed. COMPARISON: CR,XR XR ANKLE RT COMPLETE from 01/07/2020 CR,XR XR HEEL RT OS CALCIS from 01/07/2020 XR TIB/FIB RT from 08/22/2020 FINDINGS: BONES: There are stable post operative changes present. No fracture or dislocation. JOINTS: The joint spaces are stable. No joint effusion is present. SOFT TISSUE: Normal. IMPRESSION: Stable postoperative changes. DATA REPOSITORY: RADIATION DOSE DELIVERED:
== END 2020-08-30 15:29 ==
PROVIDERS: PCP Family Medicine; Referring Provider Family Medicine; Visit Provider Student in an Organized Health Care Education/Training Program
DX: S82.291A Other fracture of shaft of right tibia, initial encounter for closed fracture (principal); Z98.1 Arthrodesis status; Z47.89 Encounter for other orthopedic aftercare; G89.18 Other acute postprocedural pain
CPT/HCPCS: 73590; 73600

== ENCOUNTER → 2020-09-06 10:08 | Outpatient (BNVA) | payer MEDICARE, MEDICAID, SELFPAY | PROVIDERS: PCP Family Medicine; Referring Provider Family Medicine; Visit Provider Student in an Organized Health Care Education/Training Program | DX: Z47.89 Encounter for other orthopedic aftercare (principal); M19.071 Primary osteoarthritis, right ankle and foot; M21.961 Unspecified acquired deformity of right lower leg; Z87.81 Personal history of (healed) traumatic fracture ==

== ENCOUNTER → 2020-09-17 15:24 | Outpatient (BNVA) | payer MEDICARE, MEDICAID, SELFPAY | PROVIDERS: PCP Family Medicine; Referring Provider Family Medicine; Visit Provider Student in an Organized Health Care Education/Training Program | DX: Z47.89 Encounter for other orthopedic aftercare (principal); Z98.1 Arthrodesis status ==

== ENCOUNTER 2020-10-08 15:44 | Outpatient (CLI) | payer MEDICARE, MEDICAID, SELFPAY ==
--- NOTE | 2020-10-08 13:30 | DI.RAD_ITS ---
EXAM: XR ANKLE RT COMPLETE CLINICAL HISTORY: f/u R hindfoot fusion. TECHNIQUE: 2D digital imaging was performed. COMPARISON: CR,XR XR ANKLE RT COMPLETE from 01/07/2020 CR XR ANKLE LT COMPLETE from 06/21/2020 CR XR ANKLE RT 2V from 08/30/2020 FINDINGS: BONES: There are stable post operative changes present. No new fracture or dislocation. JOINTS: The joint spaces are well maintained. No joint effusion is present. SOFT TISSUE: Normal. IMPRESSION: Stable postoperative changes. DATA REPOSITORY: RADIATION DOSE DELIVERED:
== END 2020-10-08 16:04 ==
PROVIDERS: PCP Family Medicine; Referring Provider Family Medicine; Visit Provider Student in an Organized Health Care Education/Training Program
DX: Z98.1 Arthrodesis status (principal); Z47.89 Encounter for other orthopedic aftercare
CPT/HCPCS: 73610

== ENCOUNTER 2020-11-05 13:31 | Outpatient (CLI) | payer MEDICARE, MEDICAID, SELFPAY ==
--- NOTE | 2020-11-05 13:00 | DI.RAD_ITS ---
EXAM: XR ANKLE RT COMPLETE CLINICAL HISTORY: s/p right ankle arthrodesis. TECHNIQUE: 2D digital imaging was performed. COMPARISON: CR XR ANKLE RT COMPLETE from 10/08/2020 FINDINGS: BONES: There are stable post operative changes present. No new fracture or dislocation. JOINTS: The joint spaces are well maintained. No joint effusion is present. SOFT TISSUE: Normal. IMPRESSION: Stable postoperative changes. DATA REPOSITORY: RADIATION DOSE DELIVERED:
== END 2020-11-05 13:51 ==
PROVIDERS: PCP Family Medicine; Referring Provider Family Medicine; Visit Provider Student in an Organized Health Care Education/Training Program
DX: Z98.1 Arthrodesis status (principal)
CPT/HCPCS: 73610

== ENCOUNTER 2020-12-03 14:20 | Outpatient (CLI) | payer MEDICARE, MEDICAID, SELFPAY ==
--- NOTE | 2020-12-03 13:00 | DI.RAD_ITS ---
EXAM: XR ANKLE RT COMPLETE CLINICAL HISTORY: R ankle fusion. TECHNIQUE: 2D digital imaging was performed. COMPARISON: CR XR ANKLE RT COMPLETE from 11/05/2020 FINDINGS: Again noted is the long hardware from ankle arthrodesis within intramedullary luz-type extending from the mid tibia down to the inferior cortex of the calcaneus across the ankle and subtalar joints. Mu ltiple screws again noted. Healed oblique fracture site in the fibula is noted and below this level there is again noted fibular osteotomy. On the lateral view we note a a calcific body in the anterio r aspect of the ankle joint, unchanged and measuring 6 x 4 millimeters. There is no radiographic evidence of hardware failure nor radiographic evidence of osteomyelitis. IMPRESSION: DATA REPOSITORY: RADIATION DOSE DELIVERED:
== END 2020-12-03 14:21 | disposition home or self-care (01) ==
LOC: DIORS 14:21
PROVIDERS: PCP Family Medicine; Referring Provider Family Medicine; Visit Provider Physician Assistant
DX: Z98.1 Arthrodesis status (principal); M25.571 Pain in right ankle and joints of right foot; G89.29 Other chronic pain
CPT/HCPCS: 99213; 99214; 73610

== ENCOUNTER → 2021-01-17 08:08 | Outpatient (BNVA) | payer MEDICARE, MEDICAID, SELFPAY | PROVIDERS: PCP Family Medicine; Referring Provider Student in an Organized Health Care Education/Training Program; Visit Provider Psychiatry & Neurology Neurology | DX: R20.0 Anesthesia of skin (principal) | CPT/HCPCS: 95908; 99214 ==

== ENCOUNTER → 2021-01-28 13:00 | Outpatient (BNVA) | payer MEDICARE, MEDICAID, SELFPAY | PROVIDERS: PCP Family Medicine; Referring Provider Family Medicine; Visit Provider Student in an Organized Health Care Education/Training Program | DX: Z47.89 Encounter for other orthopedic aftercare (principal); Z98.1 Arthrodesis status; M62.81 Muscle weakness (generalized); M79.604 Pain in right leg; R20.0 Anesthesia of skin | CPT/HCPCS: 99214 ==

== ENCOUNTER 2021-02-06 01:47 | Outpatient (CLI) | payer MEDICARE, MEDICAID, SELFPAY ==
--- NOTE | 2021-02-06 08:00 | DI.MRI_ITS ---
EXAM: MR LUMBAR SPINE WO CLINICAL HISTORY: RT LEG NUMBNESS,LOW BACK PAIN, SPINAL STENOSIS,R20.0,M54.5. TECHNIQUE: Multiplanar multisequence MRI of the Lumbar spine was performed. COMPARISON: CT LUMBAR SPINE SI JOINTS WO from 08/28/2016 CT LUMBAR SPINE SI JOINTS WO from 08/28/2016 CR LUMBAR SPINE COMPLETE from 03/17/2018 FINDINGS: Again noted is trilevel fusion L4-L5-S1 with posterior fusion rods and bilateral intrapedicular screw s at these levels. There are also bilateral bone grafts at these levels. There may be an element of transitional anatomy here somewhat difficult to assess accurately without thoracic spine films for a ccurate counting. There has been previous mentioned partial lumbarization of S1 on CT scan August 2016. Numbering of vertebral bodies will correspond to that CT scan of August 28, 2016 MRI findings: The position of the intra pedicular screws is satisfactory relative to the level of the superior endp lates at the 3 fusion levels. There is no evidence of osteomyelitis and there is no abnormal fluid c ollection. No epidural abscess nor paraspinal abscess. Conus medullaris is at normal level. There is no evidence of conus mass nor subjacent clumping of in trathecal nerve roots to suggest arachnoiditis. The distal thecal sac appears unremarkable.There is no evidence of Tarlov intrasacral cysts nor other significant findings within the sacral canal. Bones:There are no fractures nor ominous osseous lesions in the lumbar vertebral bodies and visualize d sacrum. At L2-3 level there are Modic type 1 sub endplate marrow changes. See below. With respect to the individual levels... T12-L1: Unremarkable L1-2: Mildly decreased disc height. There are Modic type 1 sub endplate marrow edema changes at this level. There is a small posterolateral left disc protrusion at this level which extends posteriorly 2 millimeters and is approximately 6 millimeters wide indenting the anterior left side of the thecal sac. The central canal dimensions, however, within normal limits. There is mild bilateral foramina l stenosis which is mostly related to short AP dimensions of the pedicles.Mild degenerative changes i n both facet joints. L2-3: This level exhibits chronic advanced disc space narrowing and Schmorl's nodes. Mild Modic type 1 sub endplate marrow edema changes. There is symmetrical annular bulging at this level without a d istinct focal disc herniation. Central canal dimensions are lower normal. The annular bulging exten ds into the floor both exiting neural foramina but there is only minimal bilateral foraminal stenosi s. Mild facet arthropathy. L3-4: This is one level above the fusion. There is normal disc height. There is no disc herniation. No central canal stenosis. No significant foraminal stenosis.Mild facet arthropathy L4-5: Fused level. There is fusion across the disc space. No abnormal intraosseous signal. No disc protrusion. Wide central canal with round thecal sac. No abnormal fluid collection. No significan t foraminal stenosis on the left side. Mild foraminal stenosis on the right side. L5-S1: This is the lowest fused level. No disc herniation. Central canal dimensions within normal l imits. There is no significant foraminal stenosis at this level. S1-S2: This is one level below the fusion. Normal disc height and signal. No disc herniation. No c entral canal stenosis. No foraminal stenosis. No abnormal fluid collection. Soft tissues: paraspinal soft tissues appear unremarkable.No abnormal fluid collections. Psoas musc les appear symmetrical. No evidence of abdominal aortic aneurysm. IMPRESSION: 1. Multilevel fusion L4-5-S1 with removal of posterior osseous elements, posterior fusion rods and sa tisfactory position of the bilateral tri- level intra pedicular screws. No evidence of obvious hardw are failure, abnormal fluid collection, abscess, nor evidence of osteomyelitis. 2. At L1-2 level there are Modic type 1 sub endplate marrow edema changes and a small posterolateral left disc protrusion which extends posteriorly 2 millimeters, is approximately 6 millimeters wide and slightly indenting the anterior left side of the thecal sac. However, there is no prominent central canal stenosis. There is only mild bilateral foraminal stenosis at this level which is mostly relat ed to short AP dimensions of the pedicles. There are mild degenerative facet joint changes at this l evel bilaterally. 3. At the fused levels there is no evidence of disc herniation, canal stenosis, nor prominent foramin al stenosis. There is mild foraminal stenosis on the right side at L4-5 level DATA REPOSITORY:
== END 2021-02-06 02:07 ==
PROVIDERS: PCP Family Medicine; Visit Provider Student in an Organized Health Care Education/Training Program
DX: M54.5 Low back pain (principal); R20.0 Anesthesia of skin; Z98.1 Arthrodesis status; M51.27 Other intervertebral disc displacement, lumbosacral region
CPT/HCPCS: 72148

== ENCOUNTER 2021-02-06 10:49 | Outpatient (REF) | payer MEDICARE, MEDICAID, SELFPAY ==
[2021-02-08 13:06] LABS: COVID-19 RT-PCR UVMMC Result Negative (Negative)
== END 2021-02-06 10:50 | disposition home or self-care (01) ==
LOC: LBN 10:49
PROVIDERS: PCP Family Medicine; Visit Provider Family Medicine
DX: Z20.822 Contact with and (suspected) exposure to COVID-19 (principal)
CPT/HCPCS: U0003; U0005

== ENCOUNTER → 2021-02-21 10:41 | Outpatient (BNVA) | payer MEDICARE, MEDICAID, SELFPAY | PROVIDERS: PCP Family Medicine; Referring Provider Family Medicine; Visit Provider Psychiatry & Neurology Neurology | DX: R20.0 Anesthesia of skin (principal); J44.9 Chronic obstructive pulmonary disease, unspecified; F17.210 Nicotine dependence, cigarettes, uncomplicated | CPT/HCPCS: 95860; 95885 ==

== ENCOUNTER 2021-03-12 01:38 | Outpatient (CLI) | payer MEDICARE, MEDICAID, SELFPAY ==
--- NOTE | 2021-03-12 07:30 | DI.RAD_ITS ---
Exam(s) XR CERVICAL SPINE COMP 4-5V EXAM: XR CERVICAL SPINE COMP 4-5V CLINICAL HISTORY: neck pain. TECHNIQUE: 2D digital imaging was performed. COMPARISON: CR XR cervical sp comp w flex/ext from 10/05/2018 CR XR cervical sp comp w flex/ext from 10/05/2018 FINDINGS: Previous anterior fusion at C5-6. Severe degenerative disc changes at C3-4 and C4-5, not significant ly changed. Moderate degenerative disc changes at C6-7. There is encroachment of the C6-7 left neur al foramen by uncovertebral joint and facet osteophytes. There is neural foraminal encroachment on t he right side at C3-4, C4-5 and C6-7.. IMPRESSION: Postsurgical and degenerative changes causing bilateral neural foraminal narrowing. DATA REPOSITORY: RADIATION DOSE DELIVERED:
== END 2021-03-12 01:58 ==
PROVIDERS: PCP Family Medicine; Visit Provider Nurse Practitioner Family
DX: M54.2 Cervicalgia (principal); Z98.1 Arthrodesis status; M50.323 Other cervical disc degeneration at C6-C7 level
CPT/HCPCS: 72050

== ENCOUNTER 2021-03-27 20:43 | Emergency (ER) | payer MEDICARE, MEDICAID, SELFPAY ==
--- NOTE | 2021-03-27 20:45 | RT.EKG_ITS ---
APPROVED REPORT Exam: Resting ECG Reason for Exam: chest pain Patient Location: E HR:83 bpm ECG Measurements Heart Rate 83 AXIS IA 140 P 39 QRSd 87 QRS -13 QT 329 T 28 QTc 387 Conclusion Sinus rhythm...normal P axis, V-rate 60- 99
[2021-03-27 20:46] VITALS: BP 113/67; PULSE 99; RESP 16; TEMP 37.4; O2SAT 95
[2021-03-27 20:54] VITALS: RESP 20
--- NOTE | 2021-03-27 20:58 | W.ED.GENAD ---
Discharge Plan Disposition Patient Disposition: HOME Condition: Good Discharge Details Clinical Impression: Medication side effects, Chills Primary Care Provider: Brian Longo ED Provider: Kun Gerard Home Meds and New Rx's Prescriptions: Continued linaclotide 72 mcg capsule 72 mcg PO DAILY Qty: 30 RF: 1 atorvastatin 40 mg tablet 40 mg PO DAILY Qty: 90 RF: 3 albuterol sulfate [ProAir HFA] 90 mcg/actuation HFA aerosol inhaler 2 puff Inhalation Q6H PRN PRN (Reason: bronchospasm) Qty: 1 RF: 3 budesonide-formoterol [Symbicort] 80-4.5 mcg/actuation HFA aerosol inhaler 1 puff Inhalation BID Qty: 1 RF: 11 (DME) nebulizer and compressor [Comp-Air Elite App Partner Neb System] 1 EACH device 1 ea Miscellaneous q 4 h prn Qty: 1 RF: 0 ipratropium-albuterol 0.5 mg-3 mg(2.5 mg base)/3 mL solution for nebulization 3 ml PO Q4H PRN (Reason: shortness of breath) Qty: 50 RF: 1 pantoprazole 40 mg tablet,delayed release (DR/EC) 40 mg PO BID Qty: 180 RF: 3 ezetimibe [Zetia] 10 mg tablet 10 mg PO DAILY Qty: 90 RF: 3 sertraline 100 mg tablet 100 mg PO DAILY Qty: 90 RF: 3 acetaminophen 500 mg tablet 1,000 mg PO Q8H PRN (Reason: pain) Qty: 90 RF: 3 Discharge Instructions Additional Instructions: At this time your work-up shows no clear evidence of an infectious source. I strongly suspect that your symptoms are the very common side effect that occurs after the second dose of the Covid vaccine. There is no signs of heart attack in your work-up either. Please take 1000 mg of Tylenol or 800 mg of ibuprofen every 6 hours as needed for chills or aches. These are the maximum doses. Your symptoms should resolve after 24 to 36 hours. If you notice any worsening of your symptoms, or any new symptoms such as vomiting, diarrhea, fever, chills, shortness of breath, chest pain, numbness, weakness, or fainting , please return immediately to the emergency department for reevaluation. Please follow up with your primary care provider as soon as possible for reassessment and reevaluation. As always, it was a pleasure participating in your medical care today. Referrals: Brian Longo [Primary Care Provider] - Discharge Data Discharge Date/Time-TO BE ENTERED AT DEPARTURE: 03/28/21 00:53 Medical Decision Making <KYLE Haile - Last Filed: 03/28/21 16:07> 45-year-old gentleman, past medical history of anxiety, arthritis, asthma, GERD, hyperlipidemia, current smoker, presenting to the ER reporting that he had the second Covid vaccine, Moderna, yesterday around 10:30 AM. He reports she was feeling fine then suddenly around 830 this evening he reports he developed multiple symptoms, subjective fever, chills, body aches, fatigue, dry cough, shortness of breath, chest pressure when coughing, abdominal pain, nausea. Patient states that he is concerned he is having a reaction to the vaccine but wants to be sure there is nothing else wrong. He has not taken any medications for his symptoms. Clinically he appears anxious but otherwise appears well, nontoxic. He appears hemodynamically stable, he is afebrile, O2 sats are mid 90s on room air. I do believe this is likely reaction secondary to the vaccine but given his symptoms I do believe obtaining routine laboratory values, D-dimer, serial troponin EKG, 1 view chest x-ray, send out Covid swab is all reasonable. Patient will be given 1 g p.o. Tylenol. Will hold aspirin as patient reports allergy, low suspicion for ACS. , Laboratory values reveal a white blood cell count of 14.32. D-dimer 459, potassium 3.3, magnesium 1.7. Initial troponin less than 0.05. Bilirubin 1.4. Abdomen is soft, no right upper quadrant pain. Will give a single gram IV magnesium and will give 40 p.o. potassium. Given his normal D-dimer will not pursue a chest CTA. Awaiting urinalysis and chest x-ray. Upon reevaluation patient is talking to his significant other on the phone, speaking in full sentences. He reports that he feels about 80% better. Reports his only complaint now is a mild dull global headache and still feeling like he is a little bit warm. Awaiting chest x-ray, urinalysis, repeat troponin and EKG. Medical Records Medical records reviewed: Yes I reviewed the patient's medical records. Lab Data Lab results reviewed: Yes I reviewed the patient's lab results. Labs: Laboratory Tests Range/Units 03/27/21 03/27/21 03/27/21 21:00 21:00 21:00 WBC (4.4-10.8) 10^3/uL 14.32 H RBC (4.36-5.78) 10^6/uL 5.47 Hgb (13.5-17.5) g/dL 15.5 Hct (40.0-50.0) % 47.4 MCV (80-95) fL 86.7 MCH (27.0-33.0) pg 28.3 MCHC (32.0-36.0) % 32.7 RDW (11.8-14.1) % 15.8 H Plt Count (130-400) 10^3/uL 207 MPV (8.0-11.0) fL 9.9 Immature Gran % 0.3 Neutrophils % 77.4 Lymphocytes % 17.2 Monocytes % 4.6 Eosinophils % 0.4 Basophils % 0.1 Nucleated RBC % % 0 Absolute Neutrophils (1.2-6.7) 10^3/uL 11.08 H Absolute Lymphocytes (1.2-3.4) 10^3/uL 2.46 Absolute Monocytes (0.1-0.8) 10^3/uL 0.66 Absolute Eosinophils (0.0-0.7) 10^3/uL 0.06 Absolute Basophils (0.0-0.2) 10^3/uL 0.01 PT (9.3-11.0) sec 10.6 INR (0.9-1.1) 1.1 APTT (21.0-27.5) sec 25.2 D-Dimer (<500) ng/mlFEU 459 Sodium (136-145) mmol/L 141 Potassium (3.5-5.1) mmol/L 3.3 L Chloride (98-107) mmol/L 103 Carbon Dioxide (21.0-32.0) mmol/L 28.2 Anion Gap (3-11) mmol/L 9.8 BUN (7-18) mg/dL 4 L Creatinine (0.70-1.30) mg/dL 1.0 Estimated GFR/1.73 m2 (mL/min/1.73m2) >= 60.00 Glucose (74-106) mg/dL 85 Calcium (8.5-10.1) mg/dL 8.9 Magnesium (1.8-2.4) mg/dL 1.7 L Total Bilirubin (0.2-1.0) mg/dL 1.4 H AST (15-37) U/L 25 ALT (16-63) U/L 37 Alkaline Phosphatase (46-116) U/L 127 H Troponin I (<0.06) ng/mL < 0.05 Total Protein (6.4-8.2) g/dL 7.9 Albumin (3.4-5.0) g/dL 4.1 ECG Data Attestation: I personally reviewed and interpreted this ECG (s) as follows: Interpretation: Please see official report by Dr. Gonzalez. Sinus rhythm, ventricular of 83. No STEMI. <Kun Gerard DO - Last Filed: 03/28/21 01:05> Patient signed out to me by Ra Oquendo. Please refer to his HPI, physical exam and assessment and plan. Time of signout we are pending repeat troponin, EKG and urinalysis. Repeat troponin and EKG have returned unremarkable. Repeat urinalysis negative for infection. On reassessment patient feels well and would like to go home. Signs and symptoms appear consistent clinically at this time with second Covid shot symptomatology. No evidence of myocarditis, heart attack, sepsis, pneumonia, or significant infectious etiology. Discussed red flags for which to return. I have extensively reviewed the treatment plan and discharge instructions with the patient. I have addressed all patient concerns at this time. The patient was made aware of what symptoms to monitor for that would warrant a return to the emergency department. Discussed the plan with the patient, they demonstrate verbal understanding and agreement with our assessment and plan at this time. The documentation in this chart was dictated using [employer] dictation software. Please excuse any dictation errors. HPI <Ra Oquendo PA - Last Filed: 03/28/21 16:07> General Mode of arrival: ambulatory. Date/Time Provider Initiated Documentation: 03/27/21 20:44. Limitations to Documentation: no limitations. Information obtained by: patient. HPI Narrative: This is a 45-year-old gentleman, past medical history that includes asthma, anxiety, arthritis, depression, GERD, hyperlipidemia, current smoker, presenting to the ER with multiple complaints concerned about the Covid vaccine. Patient reports that he received his second dose of the vaccine, Moderna, yesterday around 10:30 AM. He states around 830 this evening he has sudden onset of feeling warm but having chills, diffuse body aches, dry cough, shortness of breath, chest pain with coughing or taking a deep breath. Patient denies significant cardiac past medical history. He has not taken any medications for his symptoms. He denies recent travel or sick contacts. Related Data Home Medications Medication Instructions Recorded Confirmed nebulizer and compressor [Comp-Air #1 ea 07/16/16 03/06/21 Elite Comp Neb System] atorvastatin 40 mg tablet 40 mg PO DAILY #90 tab-cap 04/04/20 03/27/21 ipratropium 0.5 mg-albuterol 3 mg 3 ml PO Q4H PRN #50 vial 04/05/20 03/27/21 (2.5 mg base)/3 mL nebulization soln acetaminophen 1,000 mg PO Q8H PRN #90 tab 08/22/20 03/27/21 pantoprazole 40 mg tablet,delayed 40 mg PO BID #180 tab-cap 09/20/20 03/27/21 release ezetimibe 10 mg tablet 10 mg PO DAILY #90 tab-cap 11/28/20 03/27/21 sertraline 100 mg tablet 100 mg PO DAILY #90 tab 01/08/21 03/27/21 albuterol sulfate 90 mcg/actuation 2 puff INHALATION Q6H PRN PRN #1 01/22/21 03/27/21 aerosol inhaler inh budesonide-formoterol HFA 80 1 puff INHALATION BID #1 inhaler 01/22/21 03/27/21 mcg-4.5 mcg/actuation aerosol inhaler linaclotide 72 mcg capsule 72 mcg PO DAILY #30 cap 02/05/21 03/27/21 Previous Rx's Medication Instructions Recorded atorvastatin 40 mg tablet 40 mg PO DAILY #90 tab-cap 04/04/20 ipratropium 0.5 mg-albuterol 3 mg 3 ml PO Q4H PRN #50 vial 04/05/20 (2.5 mg base)/3 mL nebulization soln acetaminophen 1,000 mg PO Q8H PRN #90 tab 08/22/20 pantoprazole 40 mg tablet,delayed 40 mg PO BID #180 tab-cap 09/20/20 release ezetimibe 10 mg tablet 10 mg PO DAILY #90 tab-cap 11/28/20 sertraline 100 mg tablet 100 mg PO DAILY #90 tab 01/08/21 albuterol sulfate 90 mcg/actuation 2 puff INHALATION Q6H PRN PRN #1 01/22/21 aerosol inhaler inh budesonide-formoterol HFA 80 1 puff INHALATION BID #1 inhaler 01/22/21 mcg-4.5 mcg/actuation aerosol inhaler linaclotide 72 mcg capsule 72 mcg PO DAILY #30 cap 02/05/21 Allergies Allergy/AdvReac Type Severity Reaction Status Date / Time Fish Containing Products Allergy Intermediate hives Verified 03/27/21 20:51 Penicillins Allergy Mild Skin Rash Verified 03/27/21 20:51 aspirin AdvReac Intermediate epistaxis Verified 03/27/21 20:51 seafood Allergy Intermediate Hives Uncoded 03/27/21 20:51 hydrocodone-homatropine AdvReac Intermediate GI UPSET Uncoded 03/27/21 20:51 General Stated Complaint: GenMedical DONG: 3 Review of Systems <KYLE Haile - Last Filed: 03/28/21 16:07> Constitutional Constitutional: Reports chills, Reports fatigue and Reports fever(s) (Subjective) Eyes Eyes: Denies change in vision ENT Ears, Nose, Mouth, and Throat: Denies neck pain Cardiovascular Cardiovascular: Reports chest pain and Reports dyspnea Respiratory Respiratory: Reports cough and Reports dyspnea Gastrointestinal Gastrointestinal: Reports abdominal pain, Denies constipation, Denies diarrhea, Reports nausea and Denies vomiting Genitourinary Genitourinary: Denies dysuria Musculoskeletal Musculoskeletal: Reports myalgias, Denies neck pain, Denies numbness and Denies tingling Integumentary/Breasts Skin/Breast: Denies rash Neurologic Neurologic: Denies numbness and Denies tingling Endocrine Endocrine: Reports fatigue PFSH <KYLE Haile - Last Filed: 03/28/21 16:07> Medical History Anxiety Arthritis Asthma Depression with anxiety GERD (gastroesophageal reflux disease) Hyperlipidemia Lung nodules tobacco abuse Surgical History Excision, Skin Mass 2008-LUQ LIPOMA Fracture, Closed Treatment ANKLE History of back surgery History of surgical 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 Family History Father Alcohol abuse Essential hypertension Heart disease Neoplasm Stroke Mother Essential hypertension COPD (chronic obstructive pulmonary disease) Depression Hyperlipidemia Neoplasm Stroke Asthma SIBLING ADHD (attention deficit hyperactivity disorder) Sister No problems noted. Brother Essential hypertension Grandfather Diabetes Alcohol abuse Grandfather Brain tumor Stroke Grandmother Diabetes Grandmother Heart disease Neoplasm Cervical cancer Stroke Family History Blood disorder Neoplasm Stomach,melanoma Social History Smoking/Tobacco Use Status: Current every day Tobacco Type: cigarettes Smoking risk assessment performed?: Yes Alcohol Intake: current Alcohol Intake frequency: holidays/special occasions only Drug use: Never Substance use type: does not use Household members: spouse Housing: apartment Number of Children: 4 Pets and animals: Yes Pets and animals: dog(s) Current gender identity: male What is your relationship status?: How often do you talk on the phone with friends or family?: three or more times per week Do you belong to any clubs or organized social groups?: no Panel score (0-1 are the most socially isolated patients): 2 What type of physical activity do you participate in: none Seatbelt use: always Do you feel safe at home: Yes Do you feel safe in your relationship?: Yes Exam <KYLE Haile - Last Filed: 03/28/21 16:07> Const General: cooperative, healthy appearing, comfortable, no acute distress and anxious Orientation: alert, awake and oriented x3 HENMT Head: normal to inspection, normocephalic and atraumatic Face and sinus: normal facial exam Mouth: moist mucous membranes Eyes General: appearance normal, both eyes and all related structures Conjunctivae: conjunctivae normal Neck Neck: normal visual inspection, full ROM, no lymphadenopathy, no meningeal signs, trachea midline, supple and nontender Resp Effort & Inspection: normal respiratory effort and able to speak in complete sentences Auscultation: clear to auscultation bilaterally Cardio Rate: regular rate Rhythm: regular rhythm GI Inspection: normal to inspection Palpation: soft, not firm, no guarding, no pulsatile masses and nontender Auscultation: normal bowel sounds Back/Spine/Pelvis Back: no CVA tenderness and back tenderness (Diffuse mild lumbar) Skin General skin exam: no rashes or lesions noted Neuro General: patient alert, patient awake, moves all extremities and no focal motor deficits Cognition: normal cognition Speech: speech normal Gait: normal gait Motor: muscle tone normal throughout Sensory Exam: no sensory deficits noted Extrem General: normal to inspection, full ROM, capillary refill normal, no pedal edema and no calf tenderness Psych Appearance: grossly normal Mental Status: mental status grossly normal Course <KYLE Haile - Last Filed: 03/28/21 16:07> Vital Signs Vital signs: Vital Signs Temperature 37.4 C 03/27/21 20:46 Pulse 99 H 03/27/21 20:46 Respiratory Rate 16 03/27/21 20:46 Blood Pressure 113/67 03/27/21 20:46 Pulse Oximetry 95 03/27/21 20:46 Temperature 37.4 C 03/27/21 20:46 Temperature Source Skin 03/27/21 20:46 Pulse 99 H 03/27/21 20:46 Respiratory Rate 20 03/27/21 20:54 Respiratory Effort 03/27/21 20:54 Respiratory Depth Normal 03/27/21 20:54 Respiratory Pattern Normal 03/27/21 20:54 Blood Pressure 113/67 03/27/21 20:46 Pulse Oximetry 95 03/27/21 20:46 Oxygen Delivery Method Room Air 03/27/21 20:46 Oxygen Flow Rate 0 03/27/21 20:46 Pain Level 0 03/27/21 20:46 Sign Out <KYLE Haile - Last Filed: 03/28/21 16:07> Sign Out Data: Sign Out Comment: Patient had the second Moderna vaccine yesterday around 10:30 AM, reports suddenly not feeling well around 8:30 PM today. Laboratory values reveal mild nonspecific leukocytosis, mild hypokalemia and hypomagnesemia. Patient given 1 g p.o. Tylenol, 1 g IV magnesium and 40 p.o. potassium. Upon reevaluation patient reports feeling significantly better. Awaiting chest x-ray, urinalysis, repeat troponin and EKG. Last updated by Ra Oquendo PA at 03/27/21 22:45
[2021-03-27] MEDS: Acetaminophen 500 MG TAB 1000 MG PO (21:10)
[2021-03-27 21:19] LABS: Abs Immature Grans 0.04 10^3/uL (0.0-0.06); Absolute Eosinophil Count 0.06 10^3/uL (0.0-0.7); Absolute Monocyte Count 0.66 10^3/uL (0.1-0.8); Basophils % 0.1; Eosinophils % 0.4; HCT 47.4 % (40.0-50.0); HGB 15.5 g/dL (13.5-17.5); Immature Grans % 0.3; Lymphocytes % 17.2; MCH 28.3 pg (27.0-33.0); MCHC 32.7 % (32.0-36.0); MCV 86.7 fL (80-95); MPV 9.9 fL (8.0-11.0); Monocytes % 4.6; Neutrophils % 77.4; Nucleated RBC 0 %; Platelet Count 207 10^3/uL (130-400); RBC 5.47 10^6/uL (4.36-5.78); RDW 15.8 % (11.8-14.1); RDW-SD 50.1 fL; WBC 14.32 10^3/uL (4.4-10.8)
[2021-03-27 21:22] LABS: Absolute Basophil Count 0.01 10^3/uL (0.0-0.2); Absolute Lymphocyte Count 2.46 10^3/uL (1.2-3.4); Absolute Neutrophil Count 11.08 10^3/uL (1.2-6.7)
[2021-03-27 21:38] LABS: ALT 37 U/L (16-63); AST 25 U/L (15-37); Albumin 4.1 g/dL (3.4-5.0); Alkaline Phosphatase 127 U/L (46-116); Anion Gap 9.8 mmol/L (3-11); BUN 4 mg/dL (7-18); Bilirubin, Total 1.4 mg/dL (0.2-1.0); CO2 28.2 mmol/L (21.0-32.0); Calcium 8.9 mg/dL (8.5-10.1); Chloride 103 mmol/L (98-107); Glucose 85 mg/dL (74-106); Magnesium 1.7 mg/dL (1.8-2.4); Potassium 3.3 mmol/L (3.5-5.1); Sodium 141 mmol/L (136-145); Total Protein 7.9 g/dL (6.4-8.2)
[2021-03-27 21:39] LABS: Troponin I < 0.05 ng/mL (<0.06)
--- NOTE | 2021-03-27 21:45 | DI.RAD_ITS ---
Exam(s) XR PORTABLE CHEST AP EXAM: XR PORTABLE CHEST AP CLINICAL HISTORY: sob after covid vaccine TECHNIQUE: 2D digital imaging was performed. COMPARISON: No exams were available for comparison FINDINGS: LUNGS: Not well inflated but clear. No pleural abnormality seen. HEART: Normal. MEDIASTINUM: Normal. BONES: Unremarkable. IMPRESSION: No acute pulmonary findings. DATA REPOSITORY: RADIATION DOSE DELIVERED:
[2021-03-27 21:47] LABS: INR 1.1 (0.9-1.1); PTT Activated 25.2 sec (21.0-27.5); Prothrombin Time 10.6 sec (9.3-11.0)
[2021-03-27 21:49] LABS: D-Dimer 459 ng/mlFEU (<500)
[2021-03-27] MEDS: MAGNESIUM SULFATE 1 GM/100 ML BAG IVPB (21:57)
[2021-03-27] MEDS: Potassium Chloride 20 MEQ TABCR 40 MEQ PO (21:58)
[2021-03-27 22:34] VITALS: BP 111/47; PULSE 87; RESP 20; O2SAT 95
--- NOTE | 2021-03-27 22:51 | DI.VRAD_ITS ---
PROCEDURE INFORMATION: Exam: XR Chest Exam date and time: 03/27/2021 9:08 PM Age: 45 years old Clinical indication: Shortness of breath TECHNIQUE: Imaging protocol: XR of the chest. Views: 1 view. COMPARISON: CT CHEST PE CTA 01/03/2019 6:35 PM FINDINGS: Lungs: No convincing consolidation. Likely prominent vasculature right lung base. Pleural spaces: No sizable pleural effusion. No pneumothorax. Heart/Mediastinum: Cardiomediastinal silhouette is within normal limits. Bones/joints: No acute displaced fracture or dislocation. IMPRESSION: No acute cardiopulmonary process. Dictated and Authenticated by: Emilio Meza MD. Ordering:YOUNG Knapp MD
--- NOTE | 2021-03-27 23:30 | RT.EKG_ITS ---
APPROVED REPORT Exam: Resting ECG Reason for Exam: chest pain Patient Location: E HR:63 bpm ECG Measurements Heart Rate 63 AXIS DE 146 P 45 QRSd 88 QRS -5 QT 380 T 8 QTc 386 Conclusion Sinus rhythm...normal P axis, V-rate 60- 99 Atrial premature complex...SV complex w/ short R-R interval PhysicianL: no stemi, no significant changes
[2021-03-28 00:30] LABS: Troponin I < 0.05 ng/mL (<0.06)
[2021-03-28 00:37] LABS: Bilirubin Negative (Negative); Blood Negative (Negative); Clarity Clear (Clear); Glucose Negative (Negative); Ketones Negative (Negative); Leukocyte Esterase Negative (Negative); Nitrite Negative (Negative); Specific Gravity 1.015 (1.005-1.025); Urobilinogen 0.2 EU/dL (Up TO 0.2)
[2021-03-28 00:55] VITALS: BP 111/47; PULSE 87; RESP 20; TEMP 37.4; O2SAT 95
[2021-03-29 14:27] LABS: COVID-19 RT-PCR UVMMC Result Negative (Negative)
== END 2021-03-28 00:53 | disposition home or self-care (01) ==
PROVIDERS: Physician Assistant; Emergency Provider Student in an Organized Health Care Education/Training Program; PCP Family Medicine
DX: R50.83 Postvaccination fever (principal); T50.995A Adverse effect of other drugs, medicaments and biological substances, initial encounter
CPT/HCPCS: 80053; 93005; 96365; 99284; U0003; U0005; 71045; 81003; 83735; 84484; 85025; 85379; 85610; 85730; 93010; 99283; J3475

== ENCOUNTER 2021-03-28 02:45 | Outpatient (CLI) | payer MEDICARE, MEDICAID, SELFPAY ==
[2021-03-28 11:26] LABS: CREATININE 0.9 mg/dL (0.70-1.30)
== END 2021-03-28 02:46 | disposition home or self-care (01) ==
LOC: LOS 02:45
PROVIDERS: PCP Family Medicine; Visit Provider Family Medicine
DX: M54.2 Cervicalgia (principal); Z01.812 Encounter for preprocedural laboratory examination
CPT/HCPCS: 36415; 82565

== ENCOUNTER 2021-03-29 01:32 | Outpatient (CLI) | payer MEDICARE, MEDICAID, SELFPAY ==
--- NOTE | 2021-03-29 07:15 | DI.MRI_ITS ---
Exam(s) MR CERVICAL SPINE WO/W EXAM: MR CERVICAL SPINE WO/W CLINICAL HISTORY: Neck pain with arm numbness; hx of fusion C5-C6 TECHNIQUE: Multiplanar multisequence MRI of the cervical spine was performed. CONTRAST MATERIAL: IV Contrast: 16 ML of Dotarem contrast administered. COMPARISON: No exams were available for comparison FINDINGS: BONES: Vertebral body heights are maintained. Multilevel degenerative changes in the disc. There is straightening of the normal cervical lordosis. Apart from the degenerative endplate signal changes m arrow signal is within normal limits. CERVICAL CORD: Craniovertebral junction is unremarkable. There is normal signal in the spinal cord. No lesion is present. SOFT TISSUES: Unremarkable. ENHANCEMENT: No suspicious enhancement identified. C2-3: No disc herniation or bulge is identified. No significant central spinal canal or neural forami nal stenosis. C3-4: Mild prominence of the osteophyte disc complex is seen. There is mild narrowing of the central spinal canal which measures 8 mm. Hypertrophic changes of the uncovertebral joints is seen bilatera lly causing moderately severe bilateral neural foraminal stenosis. C4-5: There is marked prominence of the osteophyte disc complex. This causes central spinal canal st enosis compressing the spinal cord and narrowing the canal to 6 mm. There is normal signal in the sp inal cord. There are hypertrophic changes of the facets. There is [id number] bilateral neural foraminal stenosis. C5-6: Anterior cervical disc fusion is seen at C5-C6. No significant central spinal canal or neural f oraminal stenosis C6-7: Degenerative endplate signal changes are present. There is mild prominence of the osteophyte d isc complex. No significant central spinal canal stenosis is seen. There are hypertrophic changes o f the uncovertebral joints bilaterally. This causes [id number] bilateral neural foraminal sten osis. C7-T1: There are degenerative endplate signal changes. There is prominence of the osteophyte disc co mplex. No significant central spinal canal stenosis is seen. There are hypertrophic changes of the uncovertebral joints bilaterally. These cause moderate left and [id number] right neural forami nal stenosis. IMPRESSION: 1. Multilevel degenerative changes which causes central spinal canal and neural foraminal stenosis. The findings are most marked at C3-4 and C4-C5. 2. Anterior cervical disc fusion at C5-C6. 3. Please see the above discussion for specific details of each level. DATA REPOSITORY:
[2021-03-29] MEDS: Normal Saline Flush 10 ML SYR IVP (10:07)
[2021-03-29] MEDS: Gadoterate meglumine 20 ML VIAL 16 ML IVP (10:08)
== END 2021-03-29 01:52 ==
PROVIDERS: PCP Family Medicine; Visit Provider Family Medicine
DX: M54.2 Cervicalgia (principal); R20.0 Anesthesia of skin; Z98.1 Arthrodesis status; M50.31 Other cervical disc degeneration, high cervical region; M50.321 Other cervical disc degeneration at C4-C5 level
CPT/HCPCS: 72156

== ENCOUNTER → 2021-04-01 13:45 | Outpatient (BNVA) | payer MEDICARE, MEDICAID, SELFPAY | PROVIDERS: PCP Family Medicine; Visit Provider Student in an Organized Health Care Education/Training Program | DX: Z98.1 Arthrodesis status (principal); R20.0 Anesthesia of skin | CPT/HCPCS: 99213 ==

== ENCOUNTER 2021-06-29 12:20 | Emergency (ER) | payer MEDICARE, MEDICAID, SELFPAY ==
[2021-06-29 12:24] VITALS: BP 151/122; PULSE 84; RESP 14; TEMP 36.5; O2SAT 98
--- NOTE | 2021-06-29 13:02 | ED.GENADUL_ITS ---
Discharge Plan Disposition Patient Disposition: OTHER Discharge Details Chief Complaint: Orthopedic Clinical Impression: Neuropathy, Ankle pain, left Primary Care Provider: Brian Longo ED Provider: Krysta Campos Home Meds and New Rx's Prescriptions: No Action atorvastatin 40 mg tablet 40 mg PO DAILY Qty: 90 RF: 3 albuterol sulfate [ProAir HFA] 90 mcg/actuation HFA aerosol inhaler 2 puff Inhalation Q6H PRN PRN (Reason: bronchospasm) Qty: 1 RF: 3 budesonide-formoterol [Symbicort] 80-4.5 mcg/actuation HFA aerosol inhaler 1 puff Inhalation BID Qty: 1 RF: 11 sertraline 100 mg tablet 150 mg PO DAILY Qty: 90 RF: 3 (DME) nebulizer and compressor [Comp-Air Elite Comp Neb System] 1 EACH device 1 ea Miscellaneous q 4 h prn Qty: 1 RF: 0 ipratropium-albuterol 0.5 mg-3 mg(2.5 mg base)/3 mL solution for nebulization 3 ml PO Q4H PRN (Reason: shortness of breath) Qty: 50 RF: 1 pantoprazole 40 mg tablet,delayed release (DR/EC) 40 mg PO BID Qty: 180 RF: 3 ezetimibe [Zetia] 10 mg tablet 10 mg PO DAILY Qty: 90 RF: 3 Trulance 3 mg tablet 3 mg PO DAILY Qty: 30 RF: 2 acetaminophen 500 mg tablet 1,000 mg PO Q8H PRN (Reason: pain) Qty: 90 RF: 3 Medical Decision Making Patient is a pleasant 45-year-old gentleman presenting today with chief complaint of posterior right calf pain. Reports that he has chronic numbness and pain in the right lower extremity. Is seeking an amputation. Frequently with a new. He tripped over his right foot this morning and fell injuring it further. He reports he has chronic numbness and does not have any sensation or pain in the foot. However, is now having pain that radiates from the foot the tibia. Denies any new neurological symptoms. Typically ambulate with cane. On exam, patient appears to be in no acute distress. His right leg is wasted and has multiple scars on it. He denies any sensation in the right foot but states that the typical. His capillary refill is intact. No acute evidence of trauma. His history and exam is not distant with a DVT. Primarily concern for potential fracture versus other injury. Patient has had a ankle fusion and has very limited range of motion. Reviewed notes from [facility] [place]. He was last seen on 06/21/2021. At that time he was evaluated by neurology. They note the patient does have a history of trauma to the right leg with compound fracture of the right tibia/fibula 1 year 16. Underwent nailing of tibia. In August 2020 had a fusion of the tibiotalar joint and that a few months after surgical intervention he began having his numbness and coldness. Foot can occasionally have swelling, redness and be cold to the touch but is not painful. Patient underwent an ECG on 05/23/2021. Patient has had imaging of his spine. Neurology recommended MRI of the right foot but plan is for patient discusses further with orthopedic as there is hardware in place. Patient was last seen by orthopedics in February. When he was last evaluated, primary complaint was numbness extending from the malleoli through the entire foot. Patient was wincing with palpation and movement of his foot. Cane for ambulation. Patient reported then that he did fall frequently. Patient was interested in amputation of his foot at that time with hopes that this would increase his stability. Dr. Looney was concerned that the symptoms were more consistent with a neuropathy or central process and is prompted to follow- up with neurology team. Dr. Looney had advised against amputation for at least the next year We will obtain x-ray of the right foot and tib-fib. Patient has upcoming appointment with orthopedic to pursue amputation further. Department is quite busy and there was a delay in getting x-ray. Patient became upset and eloped from the department. Nursing staff attempted to have patient stay and he refused. Patient appears competent, was made aware he can return at any time. HPI General Mode of arrival: wheelchair . Date/Time Provider Initiated Documentation: 06/29/21 12:34 . Limitations to Documentation: no limitations . Information obtained by: patient, RN notes reviewed and old records reviewed . History of Present Illness 45 year old M presents to the emergency department with the chief complaint of right foot/leg pain, described as severe, with intensity rated at 10. Quality is described as aching and other (numbness), and is localized to the right and lower extremity. Patient extremity. Patient started experiencing this unknown (worse with fall today) and it has been constant. No relieving factors improve symptom(s), Other factors that worsen symptoms (fall ) . Related Data Home Medications Medication Instructions Recorded Confirmed nebulizer and compressor [Comp-Air #1 ea 07/16/16 06/27/21 Elite Comp Neb System] atorvastatin 40 mg tablet 40 mg PO DAILY #90 tab-cap 04/04/20 06/29/21 ipratropium 0.5 mg-albuterol 3 mg 3 ml PO Q4H PRN #50 vial 04/05/20 06/29/21 (2.5 mg base)/3 mL nebulization soln acetaminophen 1,000 mg PO Q8H PRN #90 tab 08/22/20 06/29/21 pantoprazole 40 mg tablet,delayed 40 mg PO BID #180 tab-cap 09/20/20 06/29/21 release ezetimibe 10 mg tablet 10 mg PO DAILY #90 tab-cap 11/28/20 06/29/21 albuterol sulfate 90 mcg/actuation 2 puff INHALATION Q6H PRN PRN #1 01/22/21 06/29/21 aerosol inhaler inh budesonide-formoterol HFA 80 1 puff INHALATION BID #1 inhaler 01/22/21 06/29/21 mcg-4.5 mcg/actuation aerosol inhaler sertraline 100 mg tablet 150 mg PO DAILY #90 tab 04/19/21 06/29/21 plecanatide 3 mg tablet 3 mg PO DAILY #30 tab 04/23/21 06/29/21 Previous Rx's Medication Instructions Recorded atorvastatin 40 mg tablet 40 mg PO DAILY #90 tab-cap 04/04/20 ipratropium 0.5 mg-albuterol 3 mg 3 ml PO Q4H PRN #50 vial 04/05/20 (2.5 mg base)/3 mL nebulization soln acetaminophen 1,000 mg PO Q8H PRN #90 tab 08/22/20 pantoprazole 40 mg tablet,delayed 40 mg PO BID #180 tab-cap 09/20/20 release ezetimibe 10 mg tablet 10 mg PO DAILY #90 tab-cap 11/28/20 albuterol sulfate 90 mcg/actuation 2 puff INHALATION Q6H PRN PRN #1 01/22/21 aerosol inhaler inh budesonide-formoterol HFA 80 1 puff INHALATION BID #1 inhaler 01/22/21 mcg-4.5 mcg/actuation aerosol inhaler sertraline 100 mg tablet 150 mg PO DAILY #90 tab 04/19/21 plecanatide 3 mg tablet 3 mg PO DAILY #30 tab 04/23/21 Allergies Allergy/AdvReac Type Severity Reaction Status Date / Time Fish Containing Products Allergy Intermediate hives Verified 06/29/21 12:27 Penicillins Allergy Mild Skin Rash Verified 06/29/21 12:27 aspirin AdvReac Intermediate epistaxis Verified 06/29/21 12:27 seafood Allergy Intermediate Hives Uncoded 06/29/21 12:27 hydrocodone-homatropine AdvReac Intermediate GI UPSET Uncoded 06/29/21 12:27 General Stated Complaint: Orthopedic DONG: 3 Review of Systems Constitutional Constitutional: Reports as per HPI, Denies chills and Denies fever(s) Cardiovascular Cardiovascular: Reports as per HPI Respiratory Respiratory: Reports as per HPI and Denies cough Musculoskeletal Musculoskeletal: Reports as per HPI, Denies deformity, Denies joint swelling, Reports limited range of motion and Reports numbness Integumentary/Breasts Skin/Breast: Reports as per HPI, Denies rash and Denies wounds Neurologic Neurologic: Reports as per HPI, Reports numbness, Reports sensory deficit and Reports paresthesias PFSH Medical History Anxiety Arthritis Asthma Depression with anxiety GERD (gastroesophageal reflux disease) Hyperlipidemia Lung nodules tobacco abuse Surgical History Excision, Skin Mass 2008-LUQ LIPOMA Fracture, Closed Treatment ANKLE History of back surgery History of surgical 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 Family History Father Alcohol abuse Essential hypertension Heart disease Neoplasm Stroke Mother Essential hypertension COPD (chronic obstructive pulmonary disease) Depression Hyperlipidemia Neoplasm Stroke Asthma S[place]LING ADHD (attention deficit hyperactivity disorder) Sister No problems noted. Brother Essential hypertension Grandfather Diabetes Alcohol abuse Grandfather Brain tumor Stroke Grandmother Diabetes Grandmother Heart disease Neoplasm Cervical cancer Stroke Family History Blood disorder Neoplasm Stomach,melanoma Social History Smoking/Tobacco Use Status: Current every day Tobacco Type: cigarettes Smoking risk assessment performed?: Yes Alcohol Intake: former Drug use: Never Substance use type: does not use Household members: spouse Housing: apartment Number of Children: 4 Pets and animals: Yes Pets and animals: dog(s) Current gender identity: male What is your relationship status?: How often do you talk on the phone with friends or family?: three or more times per week Do you belong to any clubs or organized social groups?: no Panel score (0-1 are the most socially isolated patients): 2 What type of physical activity do you participate in: none Seatbelt use: always Do you feel safe at home: Yes Do you feel safe in your relationship?: Yes Exam Const General: cooperative, healthy appearing, comfortable, no acute distress, well developed and well groomed Nutritional Appearance: average body habitus and well nourished Orientation: alert and awake Resp Effort & Inspection: normal respiratory effort, able to speak in complete s entences and no respiratory distress Cardio Rate: regular rate Rhythm: regular rhythm Skin General skin exam: no rashes or lesions noted Lesions: no lesions Rashes: no rashes Trauma: no lacerations or abrasions Neuro General: patient alert and patient awake Cognition: normal cognition Speech: speech normal Gait: gait abnormal Motor: muscle tone normal throughout Sensory Exam: lower extremity (right foot) Extrem Ankle/foot/toe images: 1. Area of pain. Intact capillary refill. Sensory deficit of foot. No ROM of ankle. Multiple surgical scars, all appear to be well healed. Muscular wasting. No palpable cord. No swelling or deformity. Psych Appearance: grossly normal and well kempt Mental Status: mental status grossly normal Speech and Movement: speech and movement normal Course Vital Signs Vital signs: Vital Signs Temperature 36.5 C 06/29/21 12:24 Pulse 84 06/29/21 12:24 Respiratory Rate 14 06/29/21 12:24 Blood Pressure 151/122 H 06/29/21 12:24 Pulse Oximetry 98 06/29/21 12:24 Temperature 36.5 C 06/29/21 12:24 Temperature Source Skin 06/29/21 12:24 Pulse 84 06/29/21 12:24 Respiratory Rate 14 06/29/21 12:24 Respiratory Effort Non-Labored 06/29/21 12:29 Blood Pressure 151/122 H 06/29/21 12:24 Blood Pressure Position Sitting 06/29/21 12:24 Pulse Oximetry 98 06/29/21 12:24 Oxygen Delivery Method Room Air 06/29/21 12:24 Oxygen Flow Rate 0 06/29/21 12:24 Pain Level 10 06/29/21 12:24
== END 2021-06-29 14:08 | disposition other institution (70) ==
PROVIDERS: Emergency Provider Physician Assistant; PCP Family Medicine
DX: G57.81 Other specified mononeuropathies of right lower limb (principal); M25.571 Pain in right ankle and joints of right foot; Z53.29 Procedure and treatment not carried out because of patient's decision for other reasons
CPT/HCPCS: 99281; 99282

== ENCOUNTER 2021-11-18 10:39 | Outpatient (CLI) | payer MEDICARE, MEDICAID, SELFPAY ==
[2021-11-18 12:19] LABS: Source Nasal/Nares
[2021-11-18 14:32] LABS: COVID-19 PCR Negative (Negative)
== END 2021-11-18 10:40 | disposition home or self-care (01) ==
LOC: LBO 10:39
PROVIDERS: PCP Family Medicine; Visit Provider Family Medicine
DX: Z20.822 Contact with and (suspected) exposure to COVID-19 (principal); Z01.818 Encounter for other preprocedural examination
CPT/HCPCS: 87635

== ENCOUNTER 2021-11-23 12:45 | Observation (INO) | payer MEDICARE, MEDICAID, SELFPAY ==
--- NOTE | 2021-11-23 12:30 | RT.EKG_ITS ---
APPROVED REPORT Exam: Resting ECG Reason for Exam: chest pain Patient Location: E HR:88 bpm ECG Measurements Heart Rate 88 AXIS NV 140 P 39 QRSd 90 QRS -24 QT 320 T 29 QTc 387 Conclusion Sinus rhythm...normal P axis, V-rate 60- 99
[2021-11-23 12:51] VITALS: BP 103/62; PULSE 102; RESP 26; TEMP 37.9; O2SAT 96
--- NOTE | 2021-11-23 13:15 | DI.CT_ITS ---
Exam(s) CT CHEST PE CTA EXAM: CT CHEST PE CTA CLINICAL HISTORY: crp. TECHNIQUE: Imaging Protocol: CT angiography of the chest was performed using pulmonary embolus petar col. Multi planar reconstructions were performed. CONTRAST MATERIAL: Intravenous: Omnipaque 350 Contrast volume: 100 cc COMPARISON: CT CT ABDOMEN PELVIS W from 07/20/2019 FINDINGS: CHEST: PULMONARY ARTERIES: There are no intraluminal filling defects to suggest acute pulmonary emboli. LUNGS: There are bilateral patchy infiltrates, most prominent in both upper lobes, not exhibiting cav itation.. No pleural effusions. Also mild infiltrate in the posterior basal segment right lower lob e, pleural based. Mild mucus is noted in the posterior ceja of both mainstem bronchi. MEDIASTINUM: Small hilar lymph nodes. Also small subcarinal lymph nodes. No adenopathy in the anter ior mediastinal fat. Shoddy lymph nodes noted in both axillary regions. No gross axillary lymphaden opathy. No supraclavicular adenopathy. CARDIAC: Heart size is upper normal. There is no pericardial effusion.Caliber of the thoracic aorta is within normal limits. There is no significant shift of the interventricular septum. PARTIALLY VISUALIZED UPPERMOST ABDOMEN: Hepatic steatosis. OSSEOUS: No significant osseous lesions.. IMPRESSION: 1. No evidence of acute pulmonary emboli. No evidence of pulmonary infarction. 2. However, there are patchy infiltrates in both upper lobes. Recommend testing for Covid-19. 3. No pleural effusions RADIATION DOSE DELIVERED: 417.5mGy.cm Total DLP DATA REPOSITORY: All CT scans at this facility are submitted to the National Radiology Data Registry (NRDR) Dose Index Registry (DIR) with the [employer] (A[employer]). RADIATION OPTIMIZATION: All CT scans at this facility use at least one of these dose optimization te chniques: automated exposure control; mA and/or kV adjustment per patient size (includes targeted exa ms where dose is matched to clinical indication); or iterative reconstruction.
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
[2021-11-23] MEDS: fentaNYL 100 MCG/2 ML VIAL 50 MCG IVP (14:21)
[2021-11-23 14:24] LABS: Source Nasal/Nares
[2021-11-23 14:47] LABS: Abs Immature Grans 0.05 10^3/uL (0.0-0.06); Absolute Eosinophil Count 0.03 10^3/uL (0.0-0.7); Absolute Lymphocyte Count 2.34 10^3/uL (1.2-3.4); Absolute Monocyte Count 0.98 10^3/uL (0.1-0.8); Basophils % 0.1; Eosinophils % 0.2; HCT 40.2 % (40.0-50.0); HGB 12.7 g/dL (13.5-17.5); Immature Grans % 0.4; Lactate 0.7 mmol/L (0.6-1.4); Lymphocytes % 17.3; MCH 27.4 pg (27.0-33.0); MCHC 31.6 % (32.0-36.0); MCV 86.6 fL (80-95); MPV 9.7 fL (8.0-11.0); Monocytes % 7.2; Neutrophils % 74.8; Nucleated RBC 0 %; Platelet Count 155 10^3/uL (130-400); RBC 4.64 10^6/uL (4.36-5.78); RDW 14.9 % (11.8-14.1); RDW-SD 47.3 fL; WBC 13.55 10^3/uL (4.4-10.8)
[2021-11-23 14:48] LABS: Absolute Basophil Count 0.01 10^3/uL (0.0-0.2); Absolute Neutrophil Count 10.14 10^3/uL (1.2-6.7)
[2021-11-23] MEDS: ACETAMINOPHEN 1,000 MG/100 ML BTL 400 MG IVPB (14:53)
[2021-11-23] MEDS: Normal Saline 1,000 ML 1000 ML IV (14:59)
[2021-11-23 15:04] LABS: COVID-19 PCR Negative (Negative)
[2021-11-23 15:05] LABS: ALT 30 U/L (16-63); AST 34 U/L (15-37); Albumin 3.2 g/dL (3.4-5.0); Alkaline Phosphatase 99 U/L (46-116); BUN 6 mg/dL (7-18); Bilirubin, Total 1.6 mg/dL (0.2-1.0); CREATININE 0.9 mg/dL (0.70-1.30); Calcium 8.2 mg/dL (8.5-10.1); Chloride 102 mmol/L (98-107); Glucose 95 mg/dL (74-106); Potassium 3.5 mmol/L (3.5-5.1); Sodium 140 mmol/L (136-145); Total Protein 6.7 g/dL (6.4-8.2); Troponin I < 50 ng/L (<or=60)
[2021-11-23] MEDS: Omnipaque 350 MG/ML 100 ML BTL IJ (15:57)
[2021-11-23] MEDS: Normal Saline Flush 10 ML SYR IVP ×2 (15:58→23:34)
--- NOTE | 2021-11-23 16:09 | DI.VRAD_ITS ---
PROCEDURE INFORMATION: Exam: CTA Chest With Contrast Exam date and time: 11/23/2021 1:27 PM Age: 46 years old Clinical indication: Chest pain TECHNIQUE: Imaging protocol: Computed tomographic angiography of the chest with contrast. 3D rendering (Not supervised by radiologist): MIP and/or 3D reconstructed images were created by the technologist. Contrast material: OMNIPAQUE 350; Contrast volume: 100 ml; Contrast route: INTRAVENOUS (IV); COMPARISON: CT CHEST PE CTA 01/03/2019 6:35 PM FINDINGS: Mildly limited due to motion artifact Pulmonary arteries: No large pulmonary emboli. Aorta: No aortic aneurysm. No aortic dissection. Lungs: Mild ground-glass opacities predominantly in the upper lobes Minimal subsegmental atelectasis Pleural spaces: No pneumothorax. Minimal right pleural effusion. Heart: No cardiomegaly. No pericardial effusion. Lymph nodes: Mild right hilar adenopathy Bones/joints: No acute fracture. Soft tissues: Unremarkable. IMPRESSION: No large pulmonary emboli Mildly limited evaluation for small pulmonary emboli predominantly in the lower lobes Mild ground-glass opacities in the upper lobes presumed infectious/inflammatory. Correlate for COVID-19. Mild right hilar adenopathy Minimal bilateral subsegmental atelectasis and minimal right pleural fluid Dictated and Authenticated by: Eron Leonard MD. Ordering:BREE Rose MD
[2021-11-23] MEDS: HYDROmorphone 2 MG/ML VIAL 0.5 MG IVP (17:06)
--- NOTE | 2021-11-23 18:30 | NUR.NOTE ---
Nursing Note: Kendra [phone]
[2021-11-23] MEDS: levoFLOXacin 750 MG/150 ML BAG 100 MG IVPB (18:33)
[2021-11-23 19:05] VITALS: BP 114/86; PULSE 72; RESP 18; TEMP 36.8; O2SAT 96
[2021-11-23 19:37] VITALS: BP 98/52; PULSE 86; RESP 16; TEMP 37.2; O2SAT 91
[2021-11-23 19:40] VITALS: PULSE 93
[2021-11-23] MEDS: Nystatin 500000 UNITS/5 ML SUSP 5ML CUP PO (20:14)
[2021-11-23] MEDS: Magnesium Oxide 400 MG TAB PO (20:14)
[2021-11-23] MEDS: Pantoprazole 40 MG TABCR PO (20:14)
[2021-11-23] MEDS: Enoxaparin 40 MG/0.4 ML SYR SC (20:15)
[2021-11-23] MEDS: oxyCODONE 5 MG TAB PO (20:21)
[2021-11-23 21:05] LABS: Troponin I < 50 ng/L (<or=60)
--- NOTE | 2021-11-23 21:50 | W.PM.HP.N ---
Date of service: 11/23/21 Time of Service: 21:50 Assessment and Plan Assessment and plan (1) Pneumonia: Status: Acute Assessment and plan: Will treat empirically with levofloxacin. Procalcitonin is pending. Will keep in PUI status for COVID-19 and repeat COVID-19 testing tomorrow given grounglass findings on CT. Trial prednisone for bronchospasm. I do think there is a component of fluid overload which could explain the groundglass opacities as well - will trial lasix. Await blood culture results. Obtain sputum cultures. Check MRSA nares. (2) Asthma: Assessment and plan: As above - add steroids. Continue home symbicort and albuterol prn. (3) Hx of right BKA: Assessment and plan: C/s PT. Will obtain recommendations for wound care (4) Thrush, oral: Status: Acute Assessment and plan: Nystatin swish/swallow (5) DVT prophylaxis: Status: Acute Assessment and plan: SC enoxaparin (6) Discharge planning issues: Status: Acute Assessment and plan: Full code Place in observation status History of Present Illness History of Present Illness Chief Complaint: Chest discomfort and heaviness Narrative: Mr Coles is a 46 year old male with PMHx of asthma, GERD, hyperlipidemia, tobacco abuse, who is s/p R BKA on 11/21/21 at [facility] (discharged yesterday) who had presented to [facility] ED today c/o chest discomfort/heaviness, shortness of breath, and wheezing since yesterday morning. The patient states that he had reported it to his providers at [facility] prior to his discharge. The patient felt hot and noted a temperature of 100.9 at home, and this was again seen by a home health nurse who came to do his dressing change today and referred him to the ED. The patient feels just like when he had a pneumonia a couple of years ago. He describes brown sputum production, but states this is normal for him since he still smokes. The chest discomfort is midsternal and feels like there is an elephant thumping on his chest. It does not feel like heartburn. He states that the albuterol did not help. His ED course was significant for a borderline fever (37.9), tachycardia, tachypnea (up to 26), and groundglass opacities on CT. The patient is saturating 96-100% on RA. There is evidence of left shift on his bloodwork. He tested negative for COVID-19, but suspicion for HCAP +/- COVID-19 remains. There is also evidence of oral thrush. Observation on hospitalist service was requested while empiric levofloxacin is being trialed. Review of Systems All systems reviewed & are unremarkable except as noted in HPI and below PFSH All Active Problems (Updated 11/23/21 @ 22:04 by Lisa Brooks MD) Discharge planning issues (Acute) DVT prophylaxis (Acute) Thrush, oral (Acute) Pneumonia (Acute) Sinus headache (Acute) Headache (Acute) Depression with anxiety (Acute) Pain, foot, right, chronic (Acute) Lipoma (Acute) Medication side effects (Acute) Chills (Acute) Neck pain (Acute) Constipation (Acute) Viral URI (Acute) Right leg numbness (Acute) Leg pain, right (Acute) Postsurgical arthrodesis status (Acute 08/22/20) rt ankle Low back pain associated with a spinal disorder other than radiculopathy or spinal stenosis (Acute) Low back pain (Chronic) Partial traumatic transphalangeal amputation of right ring finger (Acute) Snowblowing injury causing partial amputation Surgical revision of amputation DOS: 08/31/18 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 (Acute) Snowblowing injury causing partial amputation Surgical revision of amputation DOS: 08/31/18 Fracture of distal phalanx of right index finger (Acute) Snowblowing injury Ankle pain (Acute) right, chronic Arthritis (Acute) FOOT/ANKLE Asthma (Acute) 09/15/12 Callous ulcer (Acute) REFERRED TO DERM 12/22/13 Chest pain at rest (Acute) RADIATION DOWN HIS ARMS Curvature of spine (Acute) S/P FIXATION WITH RODS Cyst of skin (Acute) TOP OF LEFT FOOT-PAINFUL Depression with anxiety (Acute) GERD (gastroesophageal reflux disease) (Acute) Hyperlipemia (Acute) Hypoglycemia (Acute) Migraine (Acute) Sprain of unspecified ligament of left ankle, subsequent encounter (Acute 06/30/16) Testicular pain, right (Acute) 11/10/12-COMES AND GOES Tobacco use (Acute) Viral warts (Acute) Mood disorder (Chronic) deteriorated Status post carpal tunnel release (Acute) History of spinal surgery (Acute) History of reduction of closed fracture (Acute) History of neck surgery (Acute) History of excision of mass (Acute) Burning sensation of feet (Acute) Acquired deformity of nail (Acute) s/p nail excision and matrix ablation 11/10/19 Scrotal lesion (Acute) Sebaceous cyst (Acute) Ganglion cyst (Acute) Ankle pain, left (Acute) Arthritis of right subtalar joint (Acute) Medical History (Updated 11/23/21 @ 22:04 by Lisa Brooks MD) Anxiety Arthritis Arthritis of right ankle Asthma Deafness GERD (gastroesophageal reflux disease) Hyperlipidemia Lung nodules Neuropathy Partial Achilles tendon tear left Right ankle joint deformity Sensorineural hearing loss of both ears tobacco abuse Surgical History (Updated 11/23/21 @ 21:59 by Lisa Brooks MD) Excision, Skin Mass 2008-LUQ LIPOMA Fracture, Closed Treatment ANKLE History of back surgery History of surgical 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 Family History Father Alcohol abuse Essential hypertension Heart disease Neoplasm Stroke Mother Essential hypertension COPD (chronic obstructive pulmonary disease) Depression Hyperlipidemia Neoplasm Stroke Asthma SIBLING ADHD (attention deficit hyperactivity disorder) Sister No problems noted. Brother Essential hypertension Grandfather Diabetes Alcohol abuse Grandfather Brain tumor Stroke Grandmother Diabetes Grandmother Heart disease Neoplasm Cervical cancer Stroke Family History Blood disorder Neoplasm Stomach,melanoma Social History Smoking/Tobacco Use Status: Current every day Tobacco Type: cigarettes Smoking risk assessment performed?: Yes Alcohol Intake: former Drug use: Never Substance use type: does not use Household members: spouse Housing: apartment Number of Children: 4 Pets and animals: Yes Pets and animals: dog(s) Current gender identity: male What is your relationship status?: How often do you talk on the phone with friends or family?: three or more times per week Do you belong to any clubs or organized social groups?: no Panel score (0-1 are the most socially isolated patients): 2 What type of physical activity do you participate in: none Seatbelt use: always Do you feel safe at home: Yes Do you feel safe in your relationship?: Yes Meds Allergies and Home Medications Allergies Allergy/AdvReac Type Severity Reaction Status Date / Time Fish Containing Products Allergy Intermediate hives Verified 11/23/21 12:57 Penicillins Allergy Mild Skin Rash Verified 11/23/21 12:57 aspirin AdvReac Intermediate epistaxis Verified 11/23/21 12:57 seafood Allergy Intermediate Hives Uncoded 11/23/21 12:57 hydrocodone-homatropine AdvReac Intermediate GI UPSET Uncoded 11/23/21 12:57 Home Medications Medication Instructions Recorded Confirmed Type nebulizer and compressor [Comp-Air #1 ea 07/16/16 11/23/21 History Elite Comp Neb System] ipratropium 0.5 mg-albuterol 3 mg 3 ml PO Q4H PRN #50 vial 04/05/20 11/23/21 Rx (2.5 mg base)/3 mL nebulization soln ezetimibe 10 mg tablet 10 mg PO DAILY #90 tab-cap 11/28/20 11/23/21 Rx albuterol sulfate 90 mcg/actuation 2 puff INHALATION Q6H PRN PRN #1 01/22/21 11/23/21 Rx aerosol inhaler inh budesonide-formoterol HFA 80 1 puff INHALATION BID #1 inhaler 01/22/21 11/23/21 Rx mcg-4.5 mcg/actuation aerosol inhaler atorvastatin 40 mg tablet 40 mg PO DAILY #90 tab-cap 09/17/21 11/23/21 Rx pantoprazole 40 mg tablet,delayed 40 mg PO BID #180 tab-cap 09/17/21 11/23/21 Rx release plecanatide 3 mg tablet 3 mg PO DAILY #90 tab 09/17/21 11/23/21 Rx sertraline 100 mg tablet 200 mg PO DAILY #180 tab 09/17/21 11/23/21 Rx fluticasone propionate 50 2 spray INTRANASAL DAILY #9.9 g 11/13/21 11/23/21 Rx mcg/actuation nasal spray,suspension magnesium 250 mg tablet 250 mg PO BID #60 tab 11/13/21 11/23/21 Rx acetaminophen 1,000 mg PO PRN PRN 11/23/21 11/23/21 History oxycodone 5 mg PO PRN PRN 11/23/21 11/23/21 History Exam Narrative Exam Narrative: General: Anxious middle-aged male who does not look tachypneic or dyspneic while talking to me, RAMPART, A&Ox3, on room air Neurological: A&Ox3, no focal deficits other than difficulty hearing Psychiatric: Anxious, appropriate speech pattern/content Skin: RLE BKA stump dressed -c/d/i; no visible bruises/rashes HEENT: Atraumatic, normocephalic, EOMI, MMM, oral thrush and tongue piercing, no submandibular or cervical lymphadenopathy, no goiter or JVD Cardiovascular: RRR, no m/r/g Lungs: expiratory wheezing, rales at B bases Gastrointestinal: Soft, nontender, nondistended Genitourinary: deferred Extremities: LLE with 2+ pedal pulse, no edema; RLE s/p BKA - dressing c/d/i Results Imaging Additional studies: CTA chest: 1. No evidence of acute pulmonary emboli. No evidence of pulmonary infarction. 2. However, there are patchy infiltrates in both upper lobes. Recommend testing for Covid-19. 3. No pleural effusions EKG: HR 88, NSR, no acute ischemia, nonspecific old ST-T abnormalities in precordial leads. Labs Result diagrams: 11/23/21 14:32 11/23/21 14:32 Labs: Laboratory Results - last 24 hr 11/23/21 11/23/21 11/23/21 14:15 14:32 14:32 WBC RBC Hgb Hct MCV MCH MCHC RDW Plt Count MPV Immature Gran % Neutrophils % Lymphocytes % Monocytes % Eosinophils % Basophils % Nucleated RBC % Absolute Neutrophils Absolute Lymphocytes Absolute Monocytes Absolute Eosinophils Absolute Basophils VBG Lactate 0.7 Sodium 140 Potassium 3.5 Chloride 102 Carbon Dioxide 30.0 Anion Gap 8.0 BUN 6 L Creatinine 0.9 Estimated GFR/1.73 m2 >= 60.00 Glucose 95 Calcium 8.2 L Total Bilirubin 1.6 H AST 34 ALT 30 Alkaline Phosphatase 99 Troponin I < 50 Total Protein 6.7 Albumin 3.2 L COVID-19 Source Nasal/Nares SARS-CoV-2 (PCR) Negative 11/23/21 11/23/21 14:32 20:30 WBC 13.55 H RBC 4.64 Hgb 12.7 L Hct 40.2 MCV 86.6 MCH 27.4 MCHC 31.6 L RDW 14.9 H Plt Count 155 MPV 9.7 Immature Gran % 0.4 Neutrophils % 74.8 Lymphocytes % 17.3 Monocytes % 7.2 Eosinophils % 0.2 Basophils % 0.1 Nucleated RBC % 0 Absolute Neutrophils 10.14 H Absolute Lymphocytes 2.34 Absolute Monocytes 0.98 H Absolute Eosinophils 0.03 Absolute Basophils 0.01 VBG Lactate Sodium Potassium Chloride Carbon Dioxide Anion Gap BUN Creatinine Estimated GFR/1.73 m2 Glucose Calcium Total Bilirubin AST ALT Alkaline Phosphatase Troponin I < 50 Total Protein Albumin COVID-19 Source SARS-CoV-2 (PCR) Last Vital Signs Temp 37.2 C 11/23/21 19:37 Pulse 93 H 11/23/21 19:40 Resp 16 11/23/21 19:37 BP 98/52 L 11/23/21 19:37 Pulse Ox 91 L 11/23/21 19:37
[2021-11-23 22:21] LABS: Lab Add On Test DONE
[2021-11-23 22:47] LABS: Ferritin 145 ng/mL (26-388); Magnesium 2.1 mg/dL (1.8-2.4)
[2021-11-23 22:54] LABS: Procalcitonin 0.1 ng/mL
[2021-11-23 22:57] LABS: C-Reactive Protein 16.17 mg/dL (0.0-0.3); PHOSPHORUS 2.2 mg/dL (2.6-4.7)
[2021-11-23] MEDS: Furosemide 20 MG/2 ML VIAL IVP (23:29)
[2021-11-23] MEDS: predniSONE 20 MG TAB 40 MG PO (23:31)
[2021-11-23] MEDS: Budesonide/Formoterol 80/4.5 6.9 GM 60 PUFF INH IH (23:32)
[2021-11-23] MEDS: Acetaminophen 500 MG TAB 1000 MG PO (23:33)
[2021-11-23 23:44] VITALS: BP 111/61; PULSE 77; RESP 17; TEMP 37.5; O2SAT 93
[2021-11-24 04:17] VITALS: BP 110/72; PULSE 64; RESP 16; TEMP 36.4; O2SAT 92
[2021-11-24 04:19] VITALS: PULSE 65
[2021-11-24 05:15] VITALS: BP 112/58
[2021-11-24] MEDS: Acetaminophen 500 MG TAB 1000 MG PO (06:22)
[2021-11-24 07:00] VITALS: PULSE 55
[2021-11-24 07:12] LABS: Abs Immature Grans 0.05 10^3/uL (0.0-0.06); Absolute Basophil Count 0.01 10^3/uL (0.0-0.2); Absolute Lymphocyte Count 0.88 10^3/uL (1.2-3.4); Absolute Monocyte Count 0.22 10^3/uL (0.1-0.8); Absolute Neutrophil Count 7.71 10^3/uL (1.2-6.7); Basophils % 0.1; HCT 42.4 % (40.0-50.0); HGB 13.3 g/dL (13.5-17.5); Immature Grans % 0.6; Lymphocytes % 9.9; MCH 27.7 pg (27.0-33.0); MCHC 31.4 % (32.0-36.0); MCV 88.3 fL (80-95); MPV 9.9 fL (8.0-11.0); Monocytes % 2.5; Neutrophils % 86.9; Nucleated RBC 0 %; Platelet Count 161 10^3/uL (130-400); WBC 8.87 10^3/uL (4.4-10.8)
[2021-11-24 07:26] LABS: ALT 30 U/L (16-63); AST 43 U/L (15-37); Albumin 3.2 g/dL (3.4-5.0); Alkaline Phosphatase 106 U/L (46-116); Anion Gap 6.4 mmol/L (3-11); BUN 8 mg/dL (7-18); Bilirubin, Direct 0.2 mg/dL (0.0-0.2); Bilirubin, Total 0.8 mg/dL (0.2-1.0); C-Reactive Protein 18.56 mg/dL (0.0-0.3); CO2 29.6 mmol/L (21.0-32.0); Chloride 105 mmol/L (98-107); Glucose 153 mg/dL (74-106); Magnesium 2.3 mg/dL (1.8-2.4); PHOSPHORUS < 2.0 mg/dL (2.6-4.7); Potassium 4.1 mmol/L (3.5-5.1); Sodium 141 mmol/L (136-145); Total Protein 7.2 g/dL (6.4-8.2)
[2021-11-24 07:52] LABS: Ferritin 168 ng/mL (26-388)
[2021-11-24] MEDS: Budesonide/Formoterol 80/4.5 6.9 GM 60 PUFF INH IH (07:57)
[2021-11-24] MEDS: Sertraline 50 MG TAB 200 MG PO (08:18)
[2021-11-24] MEDS: predniSONE 20 MG TAB 40 MG PO (08:18)
[2021-11-24] MEDS: Nystatin 500000 UNITS/5 ML SUSP 5ML CUP PO (08:18)
[2021-11-24] MEDS: Magnesium Oxide 400 MG TAB PO (08:20)
[2021-11-24] MEDS: Atorvastatin 40 MG TAB PO (08:20)
[2021-11-24] MEDS: Ezetimibe 10 MG TAB PO (08:20)
[2021-11-24] MEDS: Pantoprazole 40 MG TABCR PO (08:20)
[2021-11-24] MEDS: Fluticasone NASAL SPRAY 16 GM BTL NS (08:21)
[2021-11-24 08:29] VITALS: BP 109/54; PULSE 56; RESP 12; TEMP 36.2; O2SAT 90
--- NOTE | 2021-11-24 09:18 | PT.INIE ---
Date of service: 11/24/21 Time of Service: 09:18 PT Notes Visit Reasons: HCAP, PUI for COVID-19 Inpatient Physical Therapy Evaluation Date: November 24, 2021 Referring Doctor: Dr. Lisa Brooks PT Orders: PT CONSULT: Limited ability Precautions: Standard Patient Profile/Admitting Diagnosis: Patient is a 46-year-old male admitted to [facility] on November 23, 2021 secondary to symptoms of a fever, shortness of breath, pleuritic pain, sore throat. Recently underwent below the knee amputation right lower extremity last week at [facility] by Dr. Murray. He was seen at home upon discharge from [facility] by home health physical therapy and nursing when he complained of the symptoms. He is referred for physical therapy evaluation secondary to limited ability. PMHX: All Active Problems (Updated 11/23/21 @ 22:04 by Lisa Brooks MD) Discharge planning issues (Acute) DVT prophylaxis (Acute) Thrush, oral (Acute) Pneumonia (Acute) Sinus headache (Acute) Headache (Acute) Depression with anxiety (Acute) Pain, foot, right, chronic (Acute) Lipoma (Acute) Medication side effects (Acute) Chills (Acute) Neck pain (Acute) Constipation (Acute) Viral URI (Acute) Right leg numbness (Acute) Leg pain, right (Acute) Postsurgical arthrodesis status (Acute 08/22/20) rt ankle Low back pain associated with a spinal disorder other than radiculopathy or spinal stenosis (Acute) Low back pain (Chronic) Partial traumatic transphalangeal amputation of right ring finger (Acute) Snowblowing injury causing partial amputation Surgical revision of amputation DOS: 08/31/18 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 (Acute) Snowblowing injury causing partial amputation Surgical revision of amputation DOS: 08/31/18 Fracture of distal phalanx of right index finger (Acute) Snowblowing injury Ankle pain (Acute) right, chronic Arthritis (Acute) FOOT/ANKLE Asthma (Acute) 09/15/12 Callous ulcer (Acute) REFERRED TO DERM 12/22/13 Chest pain at rest (Acute) RADIATION DOWN HIS ARMS Curvature of spine (Acute) S/P FIXATION WITH RODS Cyst of skin (Acute) TOP OF LEFT FOOT-PAINFUL Depression with anxiety (Acute) GERD (gastroesophageal reflux disease) (Acute) Hyperlipemia (Acute) Hypoglycemia (Acute) Migraine (Acute) Sprain of unspecified ligament of left ankle, subsequent encounter (Acute 06/30/16) Testicular pain, right (Acute) 11/10/12-COMES AND GOES Tobacco use (Acute) Viral warts (Acute) Mood disorder (Chronic) deteriorated Status post carpal tunnel release (Acute) History of spinal surgery (Acute) History of reduction of closed fracture (Acute) History of neck surgery (Acute) History of excision of mass (Acute) Burning sensation of feet (Acute) Acquired deformity of nail (Acute) s/p nail excision and matrix ablation 11/10/19 Scrotal lesion (Acute) Sebaceous cyst (Acute) Ganglion cyst (Acute) Ankle pain, left (Acute) Arthritis of right subtalar joint (Acute) Medical History (Updated 11/23/21 @ 22:04 by Lisa Brooks MD) Anxiety Arthritis Arthritis of right ankle Asthma Deafness GERD (gastroesophageal reflux disease) Hyperlipidemia Lung nodules Neuropathy Partial Achilles tendon tear left Right ankle joint deformity Sensorineural hearing loss of both ears tobacco abuse Surgical History (Updated 11/23/21 @ 21:59 by Lisa Brooks MD) Excision, Skin Mass 2008-LUQ LIPOMA Fracture, Closed Treatment ANKLE History of back surgery History of surgical 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 Social History/Home Situation: Resides in [place] with his in a single level dwelling Equipment Owned/DME: Front wheel walker, power wheelchair and standard wheelchair. Patient reports he was essentially utilizing wheelchair for functional mobility prior to his amputation. His goal is to resume ambulatory capacity when he is fit for his prosthesis. He uses his power wheelchair at home and a standard wheelchair for community mobility. Subjective: Complains of pressure pain to the residual limb upon assuming standing position. Admits that his pain has been well managed with medication. Symptoms are alleviated with assuming a supine posture with the leg elevated. Patient asks when he will get his COVID test results as he is looking to go home today. Objective: General Observation: On started evaluation patient is lying in bed with head of bed at 30 degrees. He is on the phone with his mother. IV port in left upper extremity antecubital fossa. Telemetry disconnected. Has protective device placed on residual limb. He is slated to see the surgeon in a few weeks for fitting of compression wrap in preparation for prosthesis. No acute distress. Well mannered and pleasant. Mental Status: Alert and oriented x4 Pain: 3/10 at rest, 7/10 at worst when assuming standing position ROM: Right Upper Extremity: Within normal limits throughout Left Upper Extremity: Within normal limits throughout Right Lower Extremity: Hip within normal limits in all planes. He is able to achieve 0 degrees knee extension and flexes to 95 degrees prior to limitation due to pain. Left Lower Extremity: Within normal limits throughout Strength: Right Upper Extremity: 5/5 throughout Left Upper Extremity: 5/5 throughout Right Lower Extremity: Hip flexion 4/5, hip abduction tested in sitting 4/5, quad straight leg raises 0 degree lag. Difficult to apply test through right lower extremity for quads and hamstring secondary to pain with below the knee amputation. Left Lower Extremity: Hip flexion 4/5, Quad 4+/5, hamstring 4/5, dorsiflexion plantarflexion 4+/5 Sensation: Reports altered sensation to posterior lateral aspect left hip and thigh which she relates is stemming from back surgery multiple years ago. This is baseline. Bed Mobility/Transfers: Supine to sit: Independent Sit to stand: Independent to front wheel walker Stand to sit: Independent from front wheeled walker Bed mobility: Independent Gait: Patient independent with ambulation utilizing front wheeled walker. Good upper body strength to be able to the weight left lower extremity to advance it for foot position. Balance: Static Sitting: Good Dynamic Sitting: Good Static Standing: Good with front wheeled walker Dynamic Standing: Good with front wheeled walker Special Tests: Mobility Limitations Standardized Measure [facility] AM-PAC 6 clicks Basic Mobility Inpatient Short Form: Raw Score: 23 Standardized Score: 56.93 CMS Score: 11.20% Informed Consent/Education: Patient instructed in purpose of PT consult and plan of care. Assessment: Patient is a 46 year old male referred to physical therapy services with the diagnosis of limited ability. He is s/p right BKA a week ago. Patient presents with clinical signs and symptoms consistent with above diagnosis. [place] will require the use of a front wheeled walker for all mobility ADL performance in order to maximize independence and reduce fall risk at home. He does have power wheelchair and stand wheelchair that was essentially his baseline functional status prior to below the knee amputation right lower extremity. He will have the support of his as he recovers at home. Home health nursing and PT was established prior to admittance to [facility] and will be necessary upon discharge. Patient presents with clinical signs and symptoms consistent with current/admitting diagnoses that have resulted to mobility limitations, gait instability, generalized weakness, and impairment of motor control as demonstrated by the following impairment level findings: 1. Impaired sitting/standing balance 2. Impaired activity tolerance 3. Limitation of joint range of motion in right ankle postoperative status Impairments are contributing to the following functional limitations: 1. Inability to safely ambulate without assistive device 2. Increase completion time for mobility ADL performance 3. Increased fall risk 4. Inability to negotiate steps alone safely Patient is assessed as a 60035 moderate complexity based on the following: History: 45 [id number] with impairment level findings, functional limitations, and past medical history as indicated above Examination: Demonstrable impairment in strength, balance, and mobility level with underlying impairments and functional limitations as documented above Presentation:Evolving Decision Makin moderate complexity Goals: N/A. PT eval and 1 treatment session only for education and training on functional mobility performance fusing the front wheeled walker. Plan of Care/Treatment Plan: N/A. PT eval and 1 treatment session only for education and training on functional mobility performance using the front wheeled walker. DISCHARGE RECOMMENDATIONS: Home when medically cleared. X Home with services: Resumption of home health physical therapy and nursing. TREATMENT CODE/TIME: Initial Evaluation 06146 - 8:45-9:10. Thank you for this referral. Jian Vergara PT, DPT
[2021-11-24 09:28] LABS: Source Nasal/Nares
[2021-11-24 11:01] LABS: COVID-19 PCR Negative (Negative)
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
== END 2021-11-24 12:50 | disposition home or self-care (01) ==
LOC: ER 18:28 → MS 19:10
PROVIDERS: Physician Assistant; Admitting Provider Internal Medicine; Emergency Provider Nurse Practitioner Family; PCP Family Medicine; Visit Provider Internal Medicine
DX: J18.9 Pneumonia, unspecified organism (principal); B37.0 Candidal stomatitis; Z89.511 Acquired absence of right leg below knee; Z20.822 Contact with and (suspected) exposure to COVID-19; J45.909 Unspecified asthma, uncomplicated; K21.9 Gastro-esophageal reflux disease without esophagitis; E78.5 Hyperlipidemia, unspecified; F17.210 Nicotine dependence, cigarettes, uncomplicated; G43.909 Migraine, unspecified, not intractable, without status migrainosus; F41.8 Other specified anxiety disorders
CPT/HCPCS: 36415; 71275; 80048; 80053; 80076; 84145; 87040; 87081; 87635; 93005; 94640; 96361; 96365; 96375; 97162; 99285; J1650; 82728; 83605; 83735; 84100; 84484; 85025; 86140; 87070; 87205; 93010; 94667; 99217; 99220; G0378; J0131; J1941; J1956; J3010; J3490; J7512

== ENCOUNTER 2021-11-30 19:34 | Emergency (ER) | payer MEDICARE, MEDICAID, SELFPAY ==
[2021-11-30 19:40] VITALS: BP 131/103; PULSE 85; RESP 20; TEMP 36; O2SAT 98
--- NOTE | 2021-11-30 20:00 | DI.RAD_ITS ---
Exam(s) XR KNEE RT 3V AP,LAT,RONDA EXAM: XR KNEE RT 3V AP,LAT,RONDA CLINICAL HISTORY: Post BKA Pain eval stump. TECHNIQUE: 2D digital imaging was performed of the right knee. Three views obtained. AP, lateral, M erchant and PA tunnel views were obtained. COMPARISON: CR XR ANKLE RT COMPLETE from 12/03/2020 FINDINGS: BONES: No acute fracture is present. No bony destructive lesion is seen. The patient has a recent bel ow the knee amputation. JOINTS: The knee is normally aligned. No joint effusion is seen. SOFT TISSUE: Mild soft tissue swelling. IMPRESSION: Status post right below the knee amputation. Otherwise unremarkable. DATA REPOSITORY: RADIATION DOSE DELIVERED:
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
[2021-11-30] MEDS: Cyclobenzaprine 10 MG TAB PO (20:07)
[2021-11-30] MEDS: oxyCODONE 10 MG TAB PO (20:07)
--- NOTE | 2021-11-30 21:02 | DI.VRAD_ITS ---
PROCEDURE INFORMATION: Exam: XR Right Knee Exam date and time: 11/30/2021 20:03 Age: 46 years old Clinical indication: Other: Post bka pain eval stump; Additional info: Per PT: Dos 11/21/21 TECHNIQUE: Imaging protocol: XR Right knee. Views: 3 views. COMPARISON: CR XR ANKLE RT COMPLETE 12/03/2020 13:17 FINDINGS: Bones/joints: Right below the knee amputation, recent appearing, with expected appearance of the stump. Evidence of a prior IM luz in the tibia. Soft tissues: Mild postoperative appearing swelling in the soft tissues. IMPRESSION: Right below the knee amputation, recent appearing, with expected appearance of the stump. Dictated and Authenticated by: Susanna Yeung MD. Ordering:MACI Matos MD
[2021-11-30] MEDS: Cyclobenzaprine 10 MG TAB, 3 TABS/BTL PO (21:47)
== END 2021-11-30 21:55 | disposition home or self-care (01) ==
PROVIDERS: Emergency Provider Registered Nurse Emergency; PCP Family Medicine
DX: M79.604 Pain in right leg (principal); Z89.511 Acquired absence of right leg below knee; M62.838 Other muscle spasm
CPT/HCPCS: 73562; 99283

== ENCOUNTER 2022-01-07 02:58 | Emergency (ER) | payer MEDICARE, MEDICAID, SELFPAY ==
[2022-01-07 02:59] VITALS: BP 129/73; PULSE 67; RESP 16; TEMP 36.5; O2SAT 96
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
[2022-01-07 03:25] LABS: Bilirubin Negative (Negative); Blood Negative (Negative); Clarity Clear (Clear); Glucose Negative (Negative); Ketones Negative (Negative); Leukocyte Esterase Negative (Negative); Nitrite Negative (Negative); Specific Gravity >= 1.030 (1.005-1.025); Urobilinogen 0.2 EU/dL (Up TO 0.2)
[2022-01-07 03:29] LABS: Abs Immature Grans 0.03 10^3/uL (0.0-0.06); Absolute Lymphocyte Count 5.62 10^3/uL (1.2-3.4); Absolute Monocyte Count 0.75 10^3/uL (0.1-0.8); Basophils % 0.3; Eosinophils % 0.8; HCT 49.4 % (40.0-50.0); HGB 15.9 g/dL (13.5-17.5); Immature Grans % 0.3; Lymphocytes % 47.7; MCH 27.8 pg (27.0-33.0); MCHC 32.2 % (32.0-36.0); MCV 86.5 fL (80-95); MPV 9.6 fL (8.0-11.0); Monocytes % 6.4; Neutrophils % 44.5; Nucleated RBC 0 %; Platelet Count 240 10^3/uL (130-400); RBC 5.71 10^6/uL (4.36-5.78); RDW 14.8 % (11.8-14.1); RDW-SD 47.1 fL; WBC 11.78 10^3/uL (4.4-10.8)
[2022-01-07 03:32] LABS: Absolute Basophil Count 0.04 10^3/uL (0.0-0.2); Absolute Eosinophil Count 0.09 10^3/uL (0.0-0.7); Absolute Neutrophil Count 5.24 10^3/uL (1.2-6.7)
[2022-01-07 03:33] LABS: Diff Comment Diff Reviewed; RBC Morphology Normal
[2022-01-07 03:40] LABS: ALT 58 U/L (16-63); AST 33 U/L (15-37); Albumin 4.1 g/dL (3.4-5.0); Alkaline Phosphatase 142 U/L (46-116); Anion Gap 10.6 mmol/L (3-11); BUN 9 mg/dL (7-18); Bilirubin, Total 0.6 mg/dL (0.2-1.0); CO2 24.4 mmol/L (21.0-32.0); CREATININE 0.9 mg/dL (0.70-1.30); Calcium 9.3 mg/dL (8.5-10.1); Chloride 105 mmol/L (98-107); Glucose 146 mg/dL (74-106); Lipase 60 U/L (73-393); Magnesium 2.3 mg/dL (1.8-2.4); Potassium 3.4 mmol/L (3.5-5.1); Sodium 140 mmol/L (136-145); Total Protein 7.9 g/dL (6.4-8.2); Troponin I < 50 ng/L (<or=60)
--- NOTE | 2022-01-07 03:45 | RT.EKG_ITS ---
APPROVED REPORT Exam: Resting ECG Reason for Exam: epigastric pain Patient Location: E HR:65 bpm ECG Measurements Heart Rate 65 AXIS MT 134 P 25 QRSd 86 QRS -7 QT [id number] T 60 QTc 0 Conclusion Sinus rhythm...normal P axis, V-rate 60- 99 Low voltage, precordial leads...precordial leads <1.0mV Consider anterior infarct...Q >30mS in V2-V5. Sinus. No STEMI. No significant change from previous EKG.
[2022-01-07 03:58] VITALS: BP 119/63; PULSE 70; RESP 16; O2SAT 97
[2022-01-07] MEDS: Ondansetron O.D.T. 4 MG TABEF, 3 TABS/BTL PO (04:02)
[2022-01-08 12:03] LABS: COVID-19 RT-PCR UVMMC Result Negative (Negative)
== END 2022-01-07 04:09 | disposition home or self-care (01) ==
LOC: ER 04:07
PROVIDERS: Emergency Provider Physician Assistant; PCP Family Medicine
DX: R10.13 Epigastric pain (principal); R19.7 Diarrhea, unspecified; R11.0 Nausea; Z20.822 Contact with and (suspected) exposure to COVID-19; R43.9 Unspecified disturbances of smell and taste
CPT/HCPCS: 80053; 83690; 93005; 99283; U0003; U0005; 81003; 83735; 84484; 85025; 93010

== ENCOUNTER 2022-02-20 14:02 | Emergency (ER) | payer MEDICARE, MEDICAID, SELFPAY ==
[2022-02-20] VITALS (33 sets, daily range): BP systolic 110–139; BP diastolic 60–106; PULSE 53–76; RESP 12–33; TEMP 36.6; O2SAT 95–99
--- NOTE | 2022-02-20 14:00 | RT.EKG_ITS ---
APPROVED REPORT Exam: Resting ECG Reason for Exam: CHEST PAIN Patient Location: E HR:64 bpm ECG Measurements Heart Rate 64 AXIS MD 130 P 44 QRSd 90 QRS -2 QT 370 T 33 QTc 382 Conclusion Sinus rhythm...normal P axis, V-rate 60- 99
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
--- NOTE | 2022-02-20 14:30 | DI.CT_ITS ---
Exam(s) CT ABDOMEN PELVIS WO EXAM: CT ABDOMEN PELVIS WO CLINICAL HISTORY: abd pain TECHNIQUE: COMPARISON: CT CT CHEST PE CTA from 11/23/2021 FINDINGS: CT examination of the abdomen and pelvis was performed without contrast administration. Images obtained through the lung bases are unremarkable. Question mild wall thickening of duodenum and proximal jejunum, please correlate clinically regarding possibility of enteritis appeared the patient reportedly had recent upper endoscopy. The liver appears normal with no evidence of a focal mass. Spleen is unremarkable in appearance.. Gallbladder and bile ducts are unremarkable. Pancreas is unremarkable in appearance. Adrenals appear normal bilaterally. Kidneys appear normal with no evidence of renal mass, hydronephrosis, or nephrolithiasis. Unremarkab le bladder. There is no evidence of abdominal or pelvic adenopathy. Abdominal aorta is of normal diameter and no abnormality is seen involving major visceral branches.. Appendix is normal. No evidence diverticulitis or bowel obstruction. No significant abdominal wall hernia seen. Tiny fat containing left inguinal hernia noted. Impression: No evidence of acute process. RADIATION DOSE DELIVERED: 1,042.81mGy.cm Total DLP 1,042.81mGy.cm Total DLP !Error CTDIvol DATA REPOSITORY: All CT scans at this facility are submitted to the National Radiology Data Registry (NRDR) Dose Index Registry (DIR) with the [employer] (ACR). RADIATION OPTIMIZATION: All CT scans at this facility use at least one of these dose optimization te chniques: automated exposure control; mA and/or kV adjustment per patient size (includes targeted exa ms where dose is matched to clinical indication); or iterative reconstruction.
[2022-02-20 14:37] LABS: Abs Immature Grans 0.02 10^3/uL (0.0-0.06); Absolute Basophil Count 0.03 10^3/uL (0.0-0.2); Absolute Eosinophil Count 0.04 10^3/uL (0.0-0.7); Absolute Lymphocyte Count 3.38 10^3/uL (1.2-3.4); Absolute Monocyte Count 0.53 10^3/uL (0.1-0.8); Absolute Neutrophil Count 5.57 10^3/uL (1.2-6.7); Basophils % 0.3; Eosinophils % 0.4; HCT 47.9 % (40.0-50.0); HGB 15.9 g/dL (13.5-17.5); Immature Grans % 0.2; Lymphocytes % 35.3; MCH 28.7 pg (27.0-33.0); MCHC 33.2 % (32.0-36.0); MCV 87 fL (80-95); MPV 9.7 fL (8.0-11.0); Monocytes % 5.5; Neutrophils % 58.3; Platelet Count 215 10^3/uL (130-400); RBC 5.54 10^6/uL (4.36-5.78); RDW 15.1 % (11.8-14.1); RDW-SD 48.3 fL; WBC 9.57 10^3/uL (4.4-10.8)
[2022-02-20] MEDS: Normal Saline 50 ML 200 ML (14:41)
[2022-02-20] MEDS: Famotidine 20 MG/2 ML VIAL IVP (14:41)
[2022-02-20] MEDS: Normal Saline 1,000 ML 1000 ML IV (14:42)
[2022-02-20 14:52] LABS: ALT 64 U/L (16-63); AST 73 U/L (15-37); Albumin 4.3 g/dL (3.4-5.0); Alkaline Phosphatase 143 U/L (46-116); Anion Gap 7.5 mmol/L (3-11); BUN 6 mg/dL (7-18); Bilirubin, Total 1.4 mg/dL (0.2-1.0); CO2 28.5 mmol/L (21.0-32.0); CREATININE 0.8 mg/dL (0.70-1.30); Calcium 9.2 mg/dL (8.5-10.1); Chloride 104 mmol/L (98-107); Glucose 107 mg/dL (74-106); Lipase 32 U/L (73-393); Potassium 3.6 mmol/L (3.5-5.1); Sodium 140 mmol/L (136-145); Total Protein 7.7 g/dL (6.4-8.2); Troponin I < 50 ng/L (<or=60)
[2022-02-20] MEDS: Ondansetron 4 MG/2 ML VIAL (15:07)
[2022-02-20] MEDS: ACETAMINOPHEN 1,000 MG/100 ML BTL 400 MG IVPB (15:54)
[2022-02-20] MEDS: MORPHine 4 MG/ML SYR IVP (16:20)
[2022-02-20 17:54] LABS: Troponin I < 50 ng/L (<or=60)
== END 2022-02-20 18:47 | disposition home or self-care (01) ==
PROVIDERS: Emergency Provider Emergency Medicine; PCP Family Medicine
DX: K29.00 Acute gastritis without bleeding (principal); R10.13 Epigastric pain; R07.9 Chest pain, unspecified
CPT/HCPCS: 36415; 80053; 83690; 93005; 96361; 96374; 96375; 99284; 74176; 84484; 85025; 93010; J0131; J2270; J2405

== ENCOUNTER 2022-02-21 01:05 | Inpatient (IN) | payer MEDICARE, MEDICAID, SELFPAY ==
[2022-02-21] VITALS (11 sets, daily range): BP systolic 104–137; BP diastolic 57–79; PULSE 47–86; RESP 16–18; TEMP 36.1–37.9; O2SAT 91–98
--- NOTE | 2022-02-21 | DI.MRI_ITS ---
Exam(s) MR ABDOMEN WO EXAM: MR ABDOMEN WO / MRCP CLINICAL HISTORY: elevated T cindy. no GS on US TECHNIQUE: Multiplanar multisequence MRI was performed without IV contrast . COMPARISON: CT CT ABDOMEN PELVIS WO from 02/20/2022 FINDINGS: VISUALIZED LUNG BASES: No pleural effusions evident. However, there is some infiltrate in the right l ower lobe now evident which was not evident on CT scan performed yesterday There is no ascites evident. STOMACH: There is a 4 by 3.7 by 3.0 cm mass in the gastric fundus which is probably food/ingested mat erial given that it was not evident on CT scan performed yesterday. LIVER: There are no focal hepatic lesion evident on this study. No obvious dilatation of intrahepati c ducts. BILIARY: There are no obvious gallstones. However, the gallbladder is diffusely edematous with some pericholecystic fluid also evident. The CBD is not dilated.There is no obvious calculus in the lower CBD. MRCP: CBD and intrahepatic ducts are not dilated. There is no obvious calculus nor obvious mass in t he lower CBD. No obvious mass at the duodenum ampullary region. Also no evidence of duodenal divert iculum this level. PANCREAS: There is mild fluid around the pancreas, probably an element of pancreatitis.There is no ev idence of pancreatic mass. The pancreatic duct is not significantly dilated. SPLEEN: Spleen is not enlarged and there are no intrasplenic lesions. ADRENALS: There are no significant adrenal masses. KIDNEYS: No solid renal masses. No hydronephrosis.No cysts evident. ABDOMINAL AORTA: Not enlarged and there is no significant para-aortic adenopathy. ANTERIOR ABDOMINAL WALL/GI: There is no evidence of significant anterior abdominal wall hernia in the field of view of this study.Is no evidence of obvious bowel obstruction. OSSEOUS: There are no lytic osseous lesions in the field of view of this study. Evidence of previous fusion surgery in the lower lumbar spine IMPRESSION: 1. When compared to yesterday's CT scan, there is significant edema around the gallbladder wall/ tapan cholecystic fluid as well as some fluid around the pancreas. Most probably element of pancreatitis n o obvious gallstones within the gallbladder lumen nor within the nondilated CBD. Correlation with bl ood work including pancreatic enzymes recommended. There is no significant dilatation of the CBD and intrahepatic ducts. The fluid around the gallbladder may be related to a calculus cholecystitis or possibly related to th e pancreatitis. The pancreatic duct is not dilated. 2. There is a 4 cm mass in the gastric fundus. However, this may just represent ingested food materi al given that it was not evident on yesterday's CT scan. DATA REPOSITORY:
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
[2022-02-21] MEDS: Lactated Ringers 1,000 ML 1000 ML IV (02:24)
[2022-02-21] MEDS: FAMOTIDINE 20 MG in Normal Saline 100 ML 400 MG IVPB (02:24)
[2022-02-21] MEDS: Pantoprazole 40 MG VIAL IVP (02:25)
[2022-02-21 02:27] LABS: Lactate 0.9 mmol/L (0.6-1.4)
[2022-02-21 02:28] LABS: Abs Immature Grans 0.02 10^3/uL (0.0-0.06); Absolute Basophil Count 0.02 10^3/uL (0.0-0.2); Absolute Eosinophil Count 0.04 10^3/uL (0.0-0.7); Absolute Monocyte Count 0.75 10^3/uL (0.1-0.8); Absolute Neutrophil Count 7.32 10^3/uL (1.2-6.7); Basophils % 0.2; Eosinophils % 0.4; HCT 46.4 % (40.0-50.0); HGB 14.8 g/dL (13.5-17.5); Immature Grans % 0.2; Lymphocytes % 18.9; MCH 27.9 pg (27.0-33.0); MCHC 31.9 % (32.0-36.0); MCV 88 fL (80-95); MPV 9.5 fL (8.0-11.0); Monocytes % 7.5; Neutrophils % 72.8; Platelet Count 198 10^3/uL (130-400); RDW 15.1 % (11.8-14.1); RDW-SD 49.1 fL; WBC 10.05 10^3/uL (4.4-10.8)
[2022-02-21 02:46] LABS: ALT 258 U/L (16-63); AST 276 U/L (15-37); Alkaline Phosphatase 231 U/L (46-116); Anion Gap 7.4 mmol/L (3-11); BUN 7 mg/dL (7-18); CO2 28.6 mmol/L (21.0-32.0); CREATININE 0.9 mg/dL (0.70-1.30); Calcium 8.6 mg/dL (8.5-10.1); Chloride 106 mmol/L (98-107); Glucose 103 mg/dL (74-106); Potassium 3.4 mmol/L (3.5-5.1); Sodium 142 mmol/L (136-145); Total Protein 7.3 g/dL (6.4-8.2)
--- NOTE | 2022-02-21 03:00 | DI.US_ITS ---
Exam(s) US ABDOMEN LIMITED EXAM: US ABDOMEN LIMITED CLINICAL HISTORY: epigastric abd pain, ruq TECHNIQUE: Ultrasound abdomen performed limited to biliary system as per request. COMPARISON: CT CT ABDOMEN PELVIS WO from 02/20/2022 FINDINGS: There is no ascites evident. GALLBLADDER/BILIARY: There are no gallstones. The gallbladder wall is slightly thickened, measuring 5.5 millimeters thick. The patient was apparently tender over this area during scanning today. The common hepatic duct isnot dilated, measuring 5mm at the level of pat hepatis. PANCREAS: Less than optimally visualized but appeared unremarkable on yesterday's CT scan. IMPRESSION: 1. There are no gallstones but the gallbladder wall appears slightly thickened. Common hepatic duct is not dilated. 2. If clinically indicated follow-up nuclear hepatobiliary imaging can be performed. DATA REPOSITORY:
[2022-02-21 03:15] LABS: Lipase > 1500 U/L (73-393)
[2022-02-21] MEDS: MORPHine 4 MG/ML SYR IVP ×4 (03:25→20:36)
[2022-02-21 04:28] LABS: Source Nasal/Nares
[2022-02-21] MEDS: Lactated Ringers 1,000 ML 150 ML IV ×2 (05:00→12:04)
[2022-02-21] MEDS: MORPHine 2 MG/ML SYR IVP ×3 (05:01→08:26)
--- NOTE | 2022-02-21 07:44 | W.PM.HP.N ---
Date of service: 02/21/22 Time of Service: 07:45 Assessment and Plan Assessment and plan (1) Anxiety: (2) GERD (gastroesophageal reflux disease): (3) Hyperlipidemia: (4) Sensorineural hearing loss of both ears: (5) tobacco abuse: (6) Below-knee amputation of right lower extremity: Status: Acute (7) Hyperglycemia: Status: Acute (8) Depression with anxiety: Status: Acute (9) Pain, foot, right, chronic: Status: Acute (10) Chronic narcotic use: Status: Acute (11) Pancreatitis: Status: Chronic Assessment and plan: -unclear etiology. Pt does NOT have gallstones. Does appear to have a mild cholecystitis ( no fever or WBC) He denies ETOH (GGT 623). Hepatitis profile sent by ED. Calcium and lipids are nl. Will check MRCP CT of pancrease on 02/20 was nl. supportive care (12) Elevated LFTs: Status: Acute (13) Elevated serum GGT level: Status: Acute (14) Constipation due to opioid therapy: Status: Acute History of Present Illness Narrative: Per ED: 46-year-old male with multiple medical problems including history of GERD and gastritis, recently seen here in the emergency department yesterday afternoon with complaint of 3 months of epigastric abdominal pain.? He had CT imaging of the abdomen pelvis that was nondiagnostic.? He did have recent endoscopy with biopsy and is unsure of the result. Patient notes he received Toradol here in the emergency department and was feeling little better and went home and ate some crackers and then developed recurrent pain.? Pain is currently severe and localized to epigastric abdomen.? He has no associated nausea or vomiting.? No bright red blood per rectum or melena -Patient had an ultrasound today that did not show any gallbladder disease. CT scan done 02/20 of the pancreas was normal and did not show any dilated bile ducts. Patient denies any alcohol use. Smokes a pack a day. He has chronic narcotic use. He has never had any problems like this before. He denies any trauma. He does have a history of constipation because of his chronic narcotic use. He does have a history of hyperlipidemia. He has never had pancreatitis before. He has never had any abdominal surgery before. He has had a history of extensive orthopedic surgery. He has not had any problems with anesthesia in the past. He is not started any new medications or supplements. Review of Systems All systems reviewed & are unremarkable except as noted in HPI and below PFSH All Active Problems (Updated 02/21/22 @ 13:02 by Abi Winslow DO) Constipation due to opioid therapy (Acute) Elevated serum GGT level (Acute) Elevated LFTs (Acute) Pancreatitis (Chronic) Chronic narcotic use (Acute) Gastritis (Acute) Asthma (Acute) Insomnia (Acute) Hyperglycemia (Acute) Below-knee amputation of right lower extremity (Acute) Sinus headache (Acute) Depression with anxiety (Acute) Pain, foot, right, chronic (Acute) Lipoma (Acute) Neck pain (Acute) Constipation (Acute) Right leg numbness (Acute) Leg pain, right (Acute) Postsurgical arthrodesis status (Acute 08/22/20) rt ankle Low back pain associated with a spinal disorder other than radiculopathy or spinal stenosis (Acute) Low back pain (Chronic) Partial traumatic transphalangeal amputation of right ring finger (Acute) Snowblowing injury causing partial amputation Surgical revision of amputation DOS: 08/31/18 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 (Acute) Snowblowing injury causing partial amputation Surgical revision of amputation DOS: 08/31/18 Fracture of distal phalanx of right index finger (Acute) Snowblowing injury Ankle pain (Acute) right, chronic Arthritis (Acute) FOOT/ANKLE Asthma (Acute) 09/15/12 Callous ulcer (Acute) REFERRED TO DERM 12/22/13 Chest pain at rest (Acute) RADIATION DOWN HIS ARMS Curvature of spine (Acute) S/P FIXATION WITH RODS Cyst of skin (Acute) TOP OF LEFT FOOT-PAINFUL Depression with anxiety (Acute) GERD (gastroesophageal reflux disease) (Acute) Hyperlipemia (Acute) Hypoglycemia (Acute) Migraine (Acute) Sprain of unspecified ligament of left ankle, subsequent encounter (Acute 06/30/16) Testicular pain, right (Acute) 11/10/12-COMES AND GOES Tobacco use (Acute) Viral warts (Acute) Mood disorder (Chronic) deteriorated Status post carpal tunnel release (Acute) History of spinal surgery (Acute) History of reduction of closed fracture (Acute) History of neck surgery (Acute) History of excision of mass (Acute) Burning sensation of feet (Acute) Acquired deformity of nail (Acute) s/p nail excision and matrix ablation 11/10/19 Scrotal lesion (Acute) Sebaceous cyst (Acute) Ganglion cyst (Acute) Ankle pain, left (Acute) Arthritis of right subtalar joint (Acute) Medical History Anxiety Arthritis Arthritis of right ankle Deafness GERD (gastroesophageal reflux disease) Hyperlipidemia Lung nodules Neuropathy Partial Achilles tendon tear left Right ankle joint deformity Sensorineural hearing loss of both ears tobacco abuse Surgical History Excision, Skin Mass 2008-LUQ LIPOMA Fracture, Closed Treatment ANKLE History of back surgery History of surgical 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 Family History Father Alcohol abuse Essential hypertension Heart disease Neoplasm Stroke Mother Essential hypertension COPD (chronic obstructive pulmonary disease) Depression Hyperlipidemia Neoplasm Stroke Asthma [place]LING ADHD (attention deficit hyperactivity disorder) Sister No problems noted. Brother Essential hypertension Grandfather Diabetes Alcohol abuse Grandfather Brain tumor Stroke Grandmother Diabetes Grandmother Heart disease Neoplasm Cervical cancer Stroke Family History Blood disorder Neoplasm Stomach,melanoma Social History Smoking/Tobacco Use Status: Current every day Tobacco Type: cigarettes Tobacco: How many years used: 30 Second Hand Exposure: Yes Smoking risk assessment performed?: Yes Alcohol Intake: current Alcohol Intake frequency: a few times a month Drug use: Never Substance use type: does not use Household members: spouse Number of Children: 4 Communication Needs: Hard of Hearing Do you need help understanding health information?: Rarely Pets and animals: Yes Pets and animals: cat(s) and dog(s) Sexually active: No Do you think of yourself as: straight/heterosexual Current gender identity: female What is your relationship status?: How often do you talk on the phone with friends or family?: three or more times per week Do you belong to any clubs or organized social groups?: no Panel score (0-1 are the most socially isolated patients): 2 What type of physical activity do you participate in: walking, aerobic and swimming Duration: < 15 minutes/day Mariajose/Hindu: No preference Special mariajose needs: No Seatbelt use: always Helmet use: No Drive intox or ride w/intox 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 Do you feel safe at home: Yes Do you feel safe in your relationship?: Yes Meds Allergies and Home Medications Allergies Allergy/AdvReac Type Severity Reaction Status Date / Time Fish Containing Products Allergy Intermediate hives Verified 02/20/22 14:15 Penicillins Allergy Mild Skin Rash Verified 02/20/22 14:15 aspirin AdvReac Intermediate epistaxis Verified 02/20/22 14:15 linaclotide AdvReac Intermediate Diarrhea Verified 02/20/22 14:15 seafood Allergy Intermediate Hives Uncoded 02/20/22 14:15 hydrocodone-homatropine AdvReac Intermediate GI UPSET Uncoded 02/20/22 14:15 Home Medications Medication Instructions Recorded Confirmed Type nebulizer and compressor (Comp-Air #1 ea 07/16/16 01/24/22 History Elite Comp Neb System) ipratropium 0.5 mg-albuterol 3 mg 3 ml PO Q4H PRN #50 vial 04/05/20 02/21/22 Rx (2.5 mg base)/3 mL nebulization soln atorvastatin 40 mg tablet 40 mg PO DAILY #90 tab-cap 09/17/21 02/21/22 Rx pantoprazole 40 mg tablet,delayed 40 mg PO BID #180 tab-cap 09/17/21 02/21/22 Rx release plecanatide 3 mg tablet (Trulance) 3 mg PO DAILY #90 tab 09/17/21 02/21/22 Rx sertraline 100 mg tablet 200 mg PO DAILY #180 tab 09/17/21 02/21/22 Rx fluticasone propionate 50 2 spray INTRANASAL DAILY #9.9 g 11/13/21 02/21/22 Rx mcg/actuation nasal spray,suspension magnesium 250 mg tablet 250 mg PO BID #60 tab 11/13/21 02/21/22 Rx acetaminophen 500 mg tablet 1,000 mg PO PRN PRN 11/23/21 02/21/22 History oxycodone 5 mg tablet 5 mg PO Q4H PRN PRN 11/23/21 02/21/22 History nystatin 100,000 unit/mL oral 5 ml PO TID #60 ml 11/24/21 02/21/22 Rx suspension cyclobenzaprine 10 mg tablet 10 mg PO TID PRN #10 tab 12/03/21 02/21/22 Rx ipratropium 0.5 mg-albuterol 3 mg 3 ml INHALATION QID PRN #90 ml 12/05/21 02/21/22 Rx (2.5 mg base)/3 mL nebulization soln ezetimibe 10 mg tablet (Zetia) 10 mg PO DAILY #90 tab-cap 12/23/21 02/21/22 Rx albuterol sulfate 90 mcg/actuation 2 puff INHALATION Q6H PRN PRN #1 01/24/22 02/21/22 Rx aerosol inhaler (ProAir HFA) inh budesonide-formoterol HFA 80 1 puff INHALATION BID #1 inhaler 01/24/22 02/21/22 Rx mcg-4.5 mcg/actuation aerosol inhaler (Symbicort) sucralfate 1 gram tablet (Carafate) 1 g PO QACHS #120 tab 01/24/22 02/21/22 Rx Exam Narrative Exam Narrative: PHYSICAL EXAM GENERAL APPEARANCE: Alert, healthy appearance, oriented. Pt is rolling around in bed c/o pain SKIN: No rashes.? No breakdown HYDRATION: Well hydrated HEAD, EYES, EARS, NECK, THROAT: Head is normocephalic, pupils equal, round, reactive to light and accommodation, ocular movement intact, sclera clear and no jaundice. ?edentialous. No sore throat.? No jaw pain. No thrush NECK: Supple, Trachea midline. No JVD. LUNGS: normal respiration/nl chest excursion. ?Clear to auscultation B/l no R/R/W ?HEART: Regular rate and rhythm, EXTREMITY: No edema or cyanosis? no leg pain, redness, swelling.? No IV infiltration s/p R BKA. stump c/d/i/ well -healed. ABDOMEN: mild distention. minimal BS. pt c/o severe pain. no echymosis NEURO: no focal neuro deficits. ? Results Labs Result diagrams: 02/21/22 02:21 02/21/22 11:25 Labs: Laboratory Results - last 24 hr 02/21/22 02/21/22 02/21/22 02:21 02:21 02:21 WBC 10.05 RBC 5.30 Hgb 14.8 Hct 46.4 MCV 88 MCH 27.9 MCHC 31.9 L D RDW 15.1 H Plt Count 198 MPV 9.5 Immature Gran % 0.2 Neutrophils % 72.8 Lymphocytes % 18.9 Monocytes % 7.5 Eosinophils % 0.4 Basophils % 0.2 Nucleated RBC % 0.0 Absolute Neutrophils 7.32 H Absolute Lymphocytes 1.90 Absolute Monocytes 0.75 Absolute Eosinophils 0.04 Absolute Basophils 0.02 VBG Lactate 0.9 Sodium 142 Potassium 3.4 L Chloride 106 Carbon Dioxide 28.6 Anion Gap 7.4 BUN 7 Creatinine 0.9 Estimated GFR/1.73 m2 >= 60.00 Glucose 103 Calcium 8.6 Total Bilirubin 3.0 H AST 276 H ALT 258 H Alkaline Phosphatase 231 H Total Protein 7.3 Albumin 4.0 Lipase > 1500 H COVID-19 Source 02/21/22 04:10 WBC RBC Hgb Hct MCV MCH MCHC RDW Plt Count MPV Immature Gran % Neutrophils % Lymphocytes % Monocytes % Eosinophils % Basophils % Nucleated RBC % Absolute Neutrophils Absolute Lymphocytes Absolute Monocytes Absolute Eosinophils Absolute Basophils VBG Lactate Sodium Potassium Chloride Carbon Dioxide Anion Gap BUN Creatinine Estimated GFR/1.73 m2 Glucose Calcium Total Bilirubin AST ALT Alkaline Phosphatase Total Protein Albumin Lipase COVID-19 Source Nasal/Nares Last Vital Signs Temp 36.6 C 02/21/22 04:57 Pulse 49 L 02/21/22 04:57 Resp 18 02/21/22 04:46 BP 137/58 L 02/21/22 04:57 Pulse Ox 95 02/21/22 04:57
--- NOTE | 2022-02-21 08:51 | INITIAL_ITS ---
- If Service Date Differs Date of service: 02/21/22 Time of Service: 08:51 Care Management Initial Assess REASON FOR HOSPITALIZATION:: Gallstone pancreatitis PAST MEDICAL HISTORY/PAST SURGICAL HISTORY:: All Active Problems (Updated 02/21/22 @ 03:39 by Raul Stanley MD). Gastritis (Acute). Acute gallstone pancreatitis (Acute). Choledocholithiasis (Acute). Asthma (Acute). Insomnia (Acute). Hyperglycemia (Acute). Below-knee amputation of right lower extremity (Acute). Thrush, oral (Acute). Pneumonia (Acute). Sinus headache (Acute). Headache (Acute). Depression with anxiety (Acute). Pain, foot, right, chronic (Acute). Lipoma (Acute). Medication side effects (Acute). Chills (Acute). Neck pain (Acute). Constipation (Acute). Viral URI (Acute). Right leg numbness (Acute). Leg pain, right (Acute). Postsurgical arthrodesis status (Acute 08/22/20). rt ankle. Low back pain associated with a spinal disorder other than radiculopathy or spinal stenosis (Acute). Low back pain (Chronic). Partial traumatic transphalangeal amputation of right ring finger (Acute). Snowblowing injury causing partial amputation. Surgical revision of amputation. DOS: 08/31/18. 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 (Acute). Snowblowing injury causing partial amputation. Surgical revision of amputation. DOS: 08/31/18. Fracture of distal phalanx of right index finger (Acute). Snowblowing injury. Ankle pain (Acute). right, chronic. Arthritis (Acute). FOOT/ANKLE. Asthma (Acute). 09/15/12. Callous ulcer (Acute). REFERRED TO DERM 12/22/13. Chest pain at rest (Acute). RADIATION DOWN HIS ARMS. Curvature of spine (Acute). S/P FIXATION WITH RODS. Cyst of skin (Acute). TOP OF LEFT FOOT-PAINFUL. Depression with anxiety (Acute). GERD (gastroesophageal reflux disease) (Acute). Hyperlipemia (Acute). Hypoglycemia (Acute). Migraine (Acute). Sprain of unspecified ligament of left ankle, subsequent encounter (Acute 06/30/16). Testicular pain, right (Acute). 11/10/12-COMES AND GOES. Tobacco use (Acute). Viral warts (Acute). Mood disorder (Chronic). deteriorated. Status post carpal tunnel release (Acute). History of spinal surgery (Acute). History of reduction of closed fracture (Acute). History of neck surgery (Acute). History of excision of mass (Acute). Burning sensation of feet (Acute). Acquired deformity of nail (Acute). s/p nail excision and matrix ablation 11/10/19. Scrotal lesion (Acute). Sebaceous cyst (Acute). Ganglion cyst (Acute). Ankle pain, left (Acute). Arthritis of right subtalar joint (Acute). Medical History . Anxiety. Arthritis. Arthritis of right ankle. Deafness. GERD (gastroesophageal reflux disease). Hyperlipidemia. Lung nodules. Neuropathy. Partial Achilles tendon tear. left. Right ankle joint deformity. Sensorineural hearing loss of both ears. tobacco abuse. Surgical History . Excision, Skin Mass. 2009-LUQ LIPOMA. Fracture, Closed Treatment. ANKLE. History of back surgery. History of surgical amputation of finger of right hand. 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 Hx of arthroscopic knee surgery. Hx of right BKA. [place] [facility] [place] NECK SURGERY. 09/19-WITH METAL PLATE. Open Carpal Tunnel release. 204-RIGHT. Tibial fracture. S/P tibial nail fixation. PREVIOUS FUNCTIONAL STATUS/SOCIAL/FAMILY SUPPORTS:: Cole lives in [place] with his Kendra and an elderly gentleman. He has 2 children, one lives in [facility] and the other is in [place], [place] He is close to his children and i dentifies them as a source of support. Cole also has 2 step children that he is not allowed to have contact with. He is disabled and does not drive, although his does and can transport him as needed. CURRENT FUNCTIONAL STATUS:: Cole was sitting up in bed in the ICU when HOA met with him. He was in obvious discomfort and rated his pain as an 8/10 at that time. Cole informed HOA that he has been disabled most of his life. 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 There was some indication that Cole might have surgery today but that has not happened. ADVANCE DIRECTIVES:: On file- Kendra ABRAMS Has patient been provided with info about the portal/API?: Yes Did the patient sign up for the portal?: Yes (previously) CODE STATUS:: Full Code INSURANCE COVERAGE / FINANCIAL ISSUES:: Medicare. Medicaid CURRENT HOME/COMMUNITY SERVICES/EQUIPMENT:: none PRIMARY CARE PHYSICIAN:: Brian Longo POTENTIAL DISCHARGE NEEDS:: follow up with surgeon and PCP PATIENT/FAMILY EDUCATION NEEDS:: Review of discharge instructions, follow up plan, medications, activity, limitations and discuss [employer] Me [employer] TRANSPORTATION:: via private vehicle PLAN:: Cole will likely be discharged home with no new services. He will follow up with his community providers and plan of care and transport with family. CM will support Cole and his discharge planning needs.
[2022-02-21] MEDS: Budesonide/Formoterol 80/4.5 6.9 GM 60 PUFF INH IH ×2 (08:56→20:43)
--- NOTE | 2022-02-21 09:05 | NUR.NOTE ---
RN loads patient in wheelchair and brings him to ultrasound for abdominal ultrasound to check involvement of gallstones and pancreatitis. Patient is reasonably comfortable after receiving 2 mg of Morphine IVP.Nursing Note:
[2022-02-21 09:21] LABS: COVID-19 PCR Negative (Negative)
--- NOTE | 2022-02-21 09:24 | NUR.NOTE ---
RN retrieves patient from ultrasound. Patient tolerates ultrasound well.Nursing Note:
[2022-02-21] MEDS: Atorvastatin 40 MG TAB PO (09:45)
[2022-02-21] MEDS: Enoxaparin 30 MG/0.3 ML SYR SC (09:47)
[2022-02-21] MEDS: Sertraline 100 MG TAB 200 MG PO (09:48)
--- NOTE | 2022-02-21 09:54 | NUR.NOTE ---
RN shows patient how to work his remote t.v. clicker.Nursing Note:
--- NOTE | 2022-02-21 11:24 | NUR.NOTE ---
RN calls lab to ask about results of morning labs. RN discovers that some labs were not drawn but will be drawn stat.Nursing Note:
[2022-02-21] MEDS: Normal Saline Flush 10 ML SYR IVP ×3 (12:04→21:35)
[2022-02-21 12:05] LABS: ALT 268 U/L (16-63); AST 217 U/L (15-37); Albumin 3.6 g/dL (3.4-5.0); Alkaline Phosphatase 231 U/L (46-116); Anion Gap 6.7 mmol/L (3-11); BUN 6 mg/dL (7-18); Bilirubin, Total 2.6 mg/dL (0.2-1.0); C-Reactive Protein 0.67 mg/dL (0.0-0.3); CO2 29.3 mmol/L (21.0-32.0); CREATININE 0.8 mg/dL (0.70-1.30); Calcium 8.4 mg/dL (8.5-10.1); Chloride 105 mmol/L (98-107); Glucose 106 mg/dL (74-106); Potassium 3.7 mmol/L (3.5-5.1); Sodium 141 mmol/L (136-145); Total Protein 6.6 g/dL (6.4-8.2)
[2022-02-21 12:07] LABS: Lipase 2450 U/L (73-393)
[2022-02-21 12:11] LABS: Calculated LDL 40 mg/dL (<100); Cholesterol 93 mg/dL (<200); HDL Cholesterol 45 mg/dL (40-60); Triglyceride 42 mg/dL (<150)
[2022-02-21 12:44] LABS: Lab Add On Test DONE
[2022-02-21 12:50] LABS: GGT 623 U/L (15-85)
[2022-02-21] MEDS: LORazepam 1 MG TAB PO (14:07)
[2022-02-21] MEDS: Sucralfate 1 GM TAB PO ×2 (17:15→21:35)
[2022-02-21] MEDS: PIPERACILLIN/TAZO 3.375 GM in Normal Saline 50 ML IVPB ×2 (18:11→21:35)
[2022-02-21] MEDS: Normal Saline 500 ML 30 ML IV (18:11)
[2022-02-21] MEDS: Lactated Ringers 1,000 ML 120 ML IV (23:01)
[2022-02-22 03:15] VITALS: BP 100/64; PULSE 92; RESP 18; TEMP 37.6; O2SAT 93
[2022-02-22] MEDS: MORPHine 4 MG/ML SYR IVP ×5 (03:18→19:54)
[2022-02-22] MEDS: PIPERACILLIN/TAZO 3.375 GM in Normal Saline 50 ML IVPB ×3 (06:14→21:56)
[2022-02-22 06:59] LABS: Abs Immature Grans 0.06 10^3/uL (0.0-0.06); Absolute Basophil Count 0.01 10^3/uL (0.0-0.2); Absolute Lymphocyte Count 2.21 10^3/uL (1.2-3.4); Absolute Neutrophil Count 10.41 10^3/uL (1.2-6.7); Basophils % 0.1; Eosinophils % 0.1; HCT 38.8 % (40.0-50.0); HGB 12.4 g/dL (13.5-17.5); Immature Grans % 0.4; MCH 27.9 pg (27.0-33.0); MCV 87 fL (80-95); MPV 10.4 fL (8.0-11.0); Neutrophils % 75.4; Platelet Count 161 10^3/uL (130-400); RBC 4.45 10^6/uL (4.36-5.78); RDW 15.3 % (11.8-14.1); RDW-SD 48.9 fL; WBC 13.81 10^3/uL (4.4-10.8)
[2022-02-22 07:04] LABS: Absolute Eosinophil Count 0.01 10^3/uL (0.0-0.7)
[2022-02-22 07:15] LABS: ALT 165 U/L (16-63); AST 88 U/L (15-37); Albumin 3.1 g/dL (3.4-5.0); Alkaline Phosphatase 211 U/L (46-116); BUN 11 mg/dL (7-18); Bilirubin, Total 2.6 mg/dL (0.2-1.0); C-Reactive Protein 10.26 mg/dL (0.0-0.3); CREATININE 0.8 mg/dL (0.70-1.30); Calcium 8.4 mg/dL (8.5-10.1); Chloride 104 mmol/L (98-107); Glucose 75 mg/dL (74-106); Lipase 350 U/L (73-393); Magnesium 2.6 mg/dL (1.8-2.4); Potassium 3.5 mmol/L (3.5-5.1); Sodium 139 mmol/L (136-145); Total Protein 6.1 g/dL (6.4-8.2)
[2022-02-22 07:59] VITALS: BP 98/62; PULSE 79; RESP 23; TEMP 36.9; O2SAT 95
[2022-02-22] MEDS: Budesonide/Formoterol 80/4.5 6.9 GM 60 PUFF INH IH ×2 (08:23→19:54)
[2022-02-22] MEDS: Sucralfate 1 GM TAB PO ×4 (08:24→21:57)
[2022-02-22] MEDS: Sertraline 100 MG TAB 200 MG PO (08:24)
[2022-02-22] MEDS: Enoxaparin 30 MG/0.3 ML SYR SC (08:24)
[2022-02-22] MEDS: Pantoprazole 40 MG VIAL IVP (08:24)
[2022-02-22] MEDS: Normal Saline Flush 10 ML SYR IVP ×5 (08:25→21:56)
[2022-02-22 09:03] LABS: Bilirubin Small (Negative); Blood Trace-intact (Negative); Clarity Clear (Clear); Glucose Negative (Negative); Ketones >=160 mg/dL (Negative); Leukocyte Esterase Negative (Negative); Nitrite Negative (Negative); Specific Gravity >= 1.030 (1.005-1.025); Urobilinogen 0.2 EU/dL (Up TO 0.2)
[2022-02-22 09:14] LABS: Bacteria Negative HPF (Negative); Crystals Rare Calcium Oxalate HPF (Negative); Epithelial Cells Few HPF (Negative); RBC 0-2 HPF (0-2); WBC Negative HPF (0-5)
[2022-02-22 09:15] LABS: C & S Indicated? No; Casts Negative LPF (Negative); Mucus Negative (Negative)
[2022-02-22 11:44] VITALS: BP 110/70; PULSE 96; RESP 24; TEMP 37; O2SAT 95
[2022-02-22] MEDS: Lactated Ringers 1,000 ML 120 ML IV (12:20)
--- NOTE | 2022-02-22 12:49 | W.PM.PROGNOT ---
Date of Service Date of service: 02/22/22 Time of Service: 11:54 Assessment and Plan Assessment and plan (1) Pancreatitis: Status: Chronic Assessment and plan: -Unclear etiology, no gallstones on imaging, possibly passed stone prior to hospital admission -HIDA scan Thursday to evaluate for biliary dyskinesia -triglycerides WNL -Hepatitis panel pending -Continue IV Zosyn to cover for infectious etiologies -Lipase normalized today, reports persistent abdominal pain (2) Constipation due to opioid therapy: Status: Acute Assessment and plan: -Bowel regimen (3) Elevated LFTs: Status: Acute Assessment and plan: -Down-trending, will continue to monitor, hepatitis panel pending (4) Chronic narcotic use: Status: Acute (5) Gastritis: Status: Acute Subjective Subjective Patient reports: no new complaints and still having pain; denies nausea or vomiting Exam Const General: cooperative, comfortable and no acute distress Nutritional Appearance: average body habitus Eyes Conjunctivae: conjunctivae normal Sclera: sclerae normal Resp Effort & Inspection: normal respiratory effort, not labored and no respiratory distress Cardio Rate: regular rate Rhythm: regular rhythm GI Inspection: normal to inspection and non-distended Palpation: soft and tender (diffuse, mid abdomen worse) periumbilically Percussion: dullness to percussion Neuro General: patient alert, patient awake and patient oriented x3 Objective Last Vital Signs Temp 98.6 F 02/22/22 11:44 Pulse 96 H 02/22/22 11:44 Resp 24 02/22/22 11:44 BP 110/70 02/22/22 11:44 Pulse Ox 95 02/22/22 11:44 Laboratory Results - last 24 hr 02/21/22 02/22/22 02/22/22 11:44 06:20 06:20 WBC 13.81 H RBC 4.45 Hgb 12.4 L D Hct 38.8 L MCV 87 MCH 27.9 MCHC 32.0 RDW 15.3 H Plt Count 161 MPV 10.4 Immature Gran % 0.4 Neutrophils % 75.4 Lymphocytes % 16.0 Monocytes % 8.0 Eosinophils % 0.1 Basophils % 0.1 Nucleated RBC % 0.0 Absolute Neutrophils 10.41 H Absolute Lymphocytes 2.21 Absolute Monocytes 1.10 H Absolute Eosinophils 0.01 Absolute Basophils 0.01 Sodium 139 Potassium 3.5 Chloride 104 Carbon Dioxide 26.0 Anion Gap 9.0 BUN 11 Creatinine 0.8 Estimated GFR/1.73 m2 >= 60.00 Glucose 75 Calcium 8.4 L Magnesium 2.6 H Total Bilirubin 2.6 H GGT 623 H AST 88 H ALT 165 H Alkaline Phosphatase 211 H C-Reactive Protein 10.26 H Total Protein 6.1 L Albumin 3.1 L Lipase 350 Urine Color Urine Clarity Urine pH Ur Specific [place] Urine Protein Urine Ketones Urine Blood Urine Nitrite Urine Bilirubin Urine Urobilinogen Ur Leukocyte Esterase Urine RBC Urine WBC Ur Epithelial Cells Urine Crystals Urine Bacteria Urine Casts Urine Mucus Ur Culture Indicated? Urine Glucose 02/22/22 08:00 WBC RBC Hgb Hct MCV MCH MCHC RDW Plt Count MPV Immature Gran % Neutrophils % Lymphocytes % Monocytes % Eosinophils % Basophils % Nucleated RBC % Absolute Neutrophils Absolute Lymphocytes Absolute Monocytes Absolute Eosinophils Absolute Basophils Sodium Potassium Chloride Carbon Dioxide Anion Gap BUN Creatinine Estimated GFR/1.73 m2 Glucose Calcium Magnesium Total Bilirubin GGT AST ALT Alkaline Phosphatase C-Reactive Protein Total Protein Albumin Lipase Urine Color Yellow Urine Clarity Clear Urine pH 6.0 Ur Specific [place] >= 1.030 H Urine Protein Negative Urine Ketones >=160 H Urine Blood Trace-intact H Urine Nitrite Negative Urine Bilirubin Small H Urine Urobilinogen 0.2 Ur Leukocyte Esterase Negative Urine RBC 0-2 Urine WBC Negative Ur Epithelial Cells Few Urine Crystals Rare Calcium Oxalate Urine Bacteria Negative Urine Casts Negative Urine Mucus Negative Ur Culture Indicated? No Urine Glucose Negative
[2022-02-22 15:57] VITALS: BP 109/53; PULSE 68; RESP 12; TEMP 37.2; O2SAT 95
[2022-02-22 21:03] VITALS: BP 117/68; PULSE 63; RESP 24; TEMP 37.9; O2SAT 94
[2022-02-22 21:55] VITALS: TEMP 37.9
[2022-02-22] MEDS: ACETAMINOPHEN 1,000 MG/100 ML BTL 400 MG IVPB (21:55)
[2022-02-22] MEDS: Bisacodyl 10 MG SUPP PR (22:57)
[2022-02-23] VITALS (8 sets, daily range): BP systolic 101–161; BP diastolic 56–79; PULSE 57–68; RESP 16–22; TEMP 36.4–37.7; O2SAT 92–98
[2022-02-23] MEDS: PIPERACILLIN/TAZO 3.375 GM in Normal Saline 50 ML IVPB ×3 (06:45→23:51)
[2022-02-23] MEDS: Lactated Ringers 1,000 ML 120 ML IV (06:47)
[2022-02-23 06:54] LABS: Abs Immature Grans 0.07 10^3/uL (0.0-0.06); Absolute Basophil Count 0.01 10^3/uL (0.0-0.2); Absolute Lymphocyte Count 1.45 10^3/uL (1.2-3.4); Absolute Monocyte Count 0.92 10^3/uL (0.1-0.8); Basophils % 0.1; Eosinophils % 0.4; HCT 37.5 % (40.0-50.0); HGB 12.1 g/dL (13.5-17.5); Immature Grans % 0.5; Lymphocytes % 10.8; MCH 27.9 pg (27.0-33.0); MCHC 32.3 % (32.0-36.0); MCV 87 fL (80-95); MPV 9.8 fL (8.0-11.0); Monocytes % 6.8; Neutrophils % 81.4; Platelet Count 152 10^3/uL (130-400); RBC 4.33 10^6/uL (4.36-5.78); RDW 15.3 % (11.8-14.1); RDW-SD 48.8 fL; WBC 13.46 10^3/uL (4.4-10.8)
[2022-02-23 07:10] LABS: Absolute Eosinophil Count 0.05 10^3/uL (0.0-0.7); Absolute Neutrophil Count 10.96 10^3/uL (1.2-6.7)
[2022-02-23 07:11] LABS: Prothrombin Time 10.4 sec (9.3-11.0)
[2022-02-23 07:18] LABS: ALT 109 U/L (16-63); AST 43 U/L (15-37); Albumin 2.9 g/dL (3.4-5.0); Alkaline Phosphatase 177 U/L (46-116); Anion Gap 9.2 mmol/L (3-11); BUN 5 mg/dL (7-18); Bilirubin, Direct 0.6 mg/dL (0.0-0.2); Bilirubin, Total 1.9 mg/dL (0.2-1.0); CO2 25.8 mmol/L (21.0-32.0); CREATININE 0.6 mg/dL (0.70-1.30); Calcium 8.6 mg/dL (8.5-10.1); Chloride 104 mmol/L (98-107); Glucose 78 mg/dL (74-106); Lipase 91 U/L (73-393); Potassium 3.2 mmol/L (3.5-5.1); Sodium 139 mmol/L (136-145); Total Protein 6.3 g/dL (6.4-8.2)
[2022-02-23 07:29] LABS: Triglyceride 65 mg/dL (<150)
[2022-02-23] MEDS: Budesonide/Formoterol 80/4.5 6.9 GM 60 PUFF INH IH ×2 (07:40→19:46)
[2022-02-23] MEDS: MORPHine 4 MG/ML SYR IVP ×5 (07:53→22:17)
[2022-02-23] MEDS: Sertraline 100 MG TAB 200 MG PO (07:54)
[2022-02-23] MEDS: Normal Saline Flush 10 ML SYR IVP ×4 (07:54→17:16)
[2022-02-23] MEDS: Pantoprazole 40 MG VIAL IVP (07:54)
[2022-02-23] MEDS: Sucralfate 1 GM TAB PO ×4 (07:54→22:18)
[2022-02-23] MEDS: Enoxaparin 30 MG/0.3 ML SYR SC (07:54)
--- NOTE | 2022-02-23 11:16 | W.PM.PROGNOT ---
Date of Service Date of service: 02/23/22 Time of Service: 11:59 Assessment and Plan Assessment and plan (1) Pancreatitis: Status: Chronic Assessment and plan: -Unclear etiology, no gallstones on imaging, possibly passed stone prior to hospital admission -HIDA scan in AM to evaluate for biliary dyskinesia -triglycerides WNL -Hepatitis panel pending -Continue IV Zosyn to cover for infectious etiologies -Lipase normalized, reports persistent abdominal pain (2) Constipation due to opioid therapy: Status: Acute Assessment and plan: -Bowel regimen (3) Elevated LFTs: Status: Acute Assessment and plan: -Down-trending, will continue to monitor, hepatitis panel pending (4) Chronic narcotic use: Status: Acute (5) Gastritis: Status: Acute Subjective Subjective Patient reports: no new complaints, still having pain and bowel movement (small); denies nausea or vomiting Exam Const General: cooperative, comfortable and no acute distress Nutritional Appearance: average body habitus Eyes Conjunctivae: conjunctivae normal Sclera: sclerae normal Resp Effort & Inspection: normal respiratory effort, not labored and no respiratory distress Cardio Rate: regular rate Rhythm: regular rhythm GI Inspection: normal to inspection and non-distended Palpation: soft, tender (diffuse) periumbilically and suprapubicly and other (today complaining of lower abdominal pain) Percussion: dullness to percussion Neuro General: patient alert, patient awake and patient oriented x3 Objective Last Vital Signs Temp 99.3 F 02/23/22 07:29 Pulse 59 L 02/23/22 07:29 Resp 18 02/23/22 07:29 BP 121/56 L 02/23/22 07:29 Pulse Ox 93 02/23/22 07:29 Laboratory Results - last 24 hr 02/23/22 02/23/22 02/23/22 06:39 06:39 06:39 WBC 13.46 H RBC 4.33 L Hgb 12.1 L Hct 37.5 L MCV 87 MCH 27.9 MCHC 32.3 RDW 15.3 H Plt Count 152 MPV 9.8 Immature Gran % 0.5 Neutrophils % 81.4 Lymphocytes % 10.8 Monocytes % 6.8 Eosinophils % 0.4 Basophils % 0.1 Nucleated RBC % 0.0 Absolute Neutrophils 10.96 H Absolute Lymphocytes 1.45 Absolute Monocytes 0.92 H Absolute Eosinophils 0.05 Absolute Basophils 0.01 PT 10.4 INR 1.0 Sodium 139 Potassium 3.2 L Chloride 104 Carbon Dioxide 25.8 Anion Gap 9.2 BUN 5 L Creatinine 0.6 L Estimated GFR/1.73 m2 >= 60.00 Glucose 78 Calcium 8.6 Total Bilirubin 1.9 H Conjugated Bilirubin 0.6 H AST 43 H ALT 109 H Alkaline Phosphatase 177 H Total Protein 6.3 L Albumin 2.9 L Triglycerides 65 Lipase 91
[2022-02-23] MEDS: Lactulose 20 GM/30 ML CUP PO (13:06)
[2022-02-23] MEDS: Potassium Chloride Liquid 20 MEQ PKT 40 MEQ PO (13:41)
[2022-02-24] VITALS (7 sets, daily range): BP systolic 103–139; BP diastolic 52–85; PULSE 53–81; RESP 16–20; TEMP 36.3–37.2; O2SAT 93–98
[2022-02-24] MEDS: Lactated Ringers 1,000 ML 120 ML IV ×2 (01:45→10:20)
[2022-02-24] MEDS: MORPHine 4 MG/ML SYR IVP ×2 (06:06→07:46)
[2022-02-24] MEDS: PIPERACILLIN/TAZO 3.375 GM in Normal Saline 50 ML IVPB ×3 (06:07→23:14)
[2022-02-24 07:33] LABS: Abs Immature Grans 0.06 10^3/uL (0.0-0.06); Absolute Basophil Count 0.01 10^3/uL (0.0-0.2); Absolute Eosinophil Count 0.15 10^3/uL (0.0-0.7); Absolute Lymphocyte Count 1.81 10^3/uL (1.2-3.4); Absolute Neutrophil Count 8.75 10^3/uL (1.2-6.7); Basophils % 0.1; Eosinophils % 1.3; HCT 39.3 % (40.0-50.0); HGB 12.6 g/dL (13.5-17.5); Immature Grans % 0.5; Lymphocytes % 15.7; MCH 27.7 pg (27.0-33.0); MCHC 32.1 % (32.0-36.0); MCV 86 fL (80-95); MPV 10.1 fL (8.0-11.0); Monocytes % 6.7; Neutrophils % 75.7; Platelet Count 150 10^3/uL (130-400); RBC 4.55 10^6/uL (4.36-5.78); RDW 15.1 % (11.8-14.1); RDW-SD 47.9 fL; WBC 11.56 10^3/uL (4.4-10.8)
[2022-02-24 07:34] LABS: Ammonia 27 umol/L (11-32)
[2022-02-24 07:42] LABS: Absolute Monocyte Count 0.77 10^3/uL (0.1-0.8)
[2022-02-24] MEDS: Lactulose 20 GM/30 ML CUP PO (07:46)
[2022-02-24] MEDS: Sertraline 100 MG TAB 200 MG PO (07:46)
[2022-02-24] MEDS: Sucralfate 1 GM TAB PO ×4 (07:46→23:14)
[2022-02-24] MEDS: Enoxaparin 30 MG/0.3 ML SYR SC (07:46)
[2022-02-24] MEDS: Pantoprazole 40 MG VIAL IVP (07:46)
[2022-02-24] MEDS: Normal Saline Flush 10 ML SYR IVP (07:47)
[2022-02-24 08:02] LABS: Magnesium 1.9 mg/dL (1.8-2.4)
[2022-02-24 08:05] LABS: ALT 75 U/L (16-63); AST 28 U/L (15-37); Albumin 2.8 g/dL (3.4-5.0); Alkaline Phosphatase 156 U/L (46-116); Bilirubin, Direct 0.5 mg/dL (0.0-0.2); Bilirubin, Total 1.5 mg/dL (0.2-1.0); Lipase 109 U/L (73-393); Total Protein 6.7 g/dL (6.4-8.2)
[2022-02-24] MEDS: Budesonide/Formoterol 80/4.5 6.9 GM 60 PUFF INH IH ×2 (08:28→20:24)
[2022-02-24 12:30] LABS: Hepatitis A Antibody IgM Negative (Negative); Hepatitis B Core Antibody Negative (Negative); Hepatitis B surface Ag Negative (Negative); Hepatitis C Ab w Rflx HCV PCR Negative (Negative)
--- NOTE | 2022-02-24 14:36 | W.PM.PROGNOT ---
Date of Service Date of service: 02/24/22 Time of Service: 14:37 Assessment and Plan Assessment and plan (1) Acute cholecystitis: Status: Acute Assessment and plan: MRCP showed acute cholecystitis. WBC count almost normal- continue Zosyn Diet: advance to low fat diet Fuids: D/C Ambulate tid D/C home tomorrow hopefully on Abx. Return to office in 3 weeks to discuss elective Cholecystectomy once the inflammation has subsided. (2) Pancreatitis: Status: Chronic Assessment and plan: -Unclear etiology, no gallstones on imaging, possibly passed stone prior to hospital admission -triglycerides WNL -Hepatitis panel pending -Continue IV Zosyn to cover for infectious etiologies -Lipase normalized, reports persistent abdominal pain (3) Constipation due to opioid therapy: Status: Acute Assessment and plan: -Bowel regimen (4) Elevated LFTs: Status: Acute Assessment and plan: -Down-trending, will continue to monitor, hepatitis panel pending (5) Chronic narcotic use: Status: Acute (6) Gastritis: Status: Acute Assessment and plan: ON BID PPI Subjective Subjective Interval history since last seen: Mr. Coles is doing OK. He has had no N/V today. He is still on IV fluids. He complains of pain 7/10. per nursing he will complain of 7/10 pain when he wakes up from a sound sleep or even after getting pain medication. he had a large BM yesterday. Exam Const General: cooperative, comfortable and no acute distress Orientation: alert and oriented x3 HENMT Head: normocephalic and atraumatic Resp Effort & Inspection: normal respiratory effort Auscultation: clear to auscultation bilaterally Cardio Rate: regular rate Rhythm: regular rhythm GI Palpation: soft, no hepatosplenomegaly and tender (mild tapan-umbilical. No guarding if distracted) Objective Last Vital Signs Temp 97.3 F L 02/24/22 11:29 Pulse 53 L 02/24/22 11:29 Resp 16 02/24/22 11:29 BP 127/75 02/24/22 11:29 Pulse Ox 93 02/24/22 11:29 Laboratory Results - last 24 hr 02/24/22 02/24/22 02/24/22 07:15 07:15 07:15 WBC RBC Hgb Hct MCV MCH MCHC RDW Plt Count MPV Immature Gran % Neutrophils % Lymphocytes % Monocytes % Eosinophils % Basophils % Nucleated RBC % Absolute Neutrophils Absolute Lymphocytes Absolute Monocytes Absolute Eosinophils Absolute Basophils Magnesium 1.9 Total Bilirubin 1.5 H Conjugated Bilirubin 0.5 H AST 28 ALT 75 H Alkaline Phosphatase 156 H Ammonia 27 Total Protein 6.7 Albumin 2.8 L Lipase 109 02/24/22 07:15 WBC 11.56 H RBC 4.55 Hgb 12.6 L Hct 39.3 L MCV 86 MCH 27.7 MCHC 32.1 RDW 15.1 H Plt Count 150 MPV 10.1 Immature Gran % 0.5 Neutrophils % 75.7 Lymphocytes % 15.7 Monocytes % 6.7 Eosinophils % 1.3 Basophils % 0.1 Nucleated RBC % 0.0 Absolute Neutrophils 8.75 H Absolute Lymphocytes 1.81 Absolute Monocytes 0.77 Absolute Eosinophils 0.15 Absolute Basophils 0.01 Magnesium Total Bilirubin Conjugated Bilirubin AST ALT Alkaline Phosphatase Ammonia Total Protein Albumin Lipase Objective Narrative Objective Narrative: .
--- NOTE | 2022-02-24 16:38 | PDOC.CMPRO ---
- If Service Date Differs Date of service: 02/24/22 Time of Service: 16:38 Care Management Progress Note S/O: Cole was sitting up in bed when CM met with him. His , Kendra, was in the room visiting. He stated that per MD, he would have his diet advanced today at dinner, and if he is able to tolerate a regular diet for breakfast, he will likely be discharged home. He will have out patient follow up with Surgical services. He is comfortable with this plan, and his stated that she would drive him home when he is ready. CM will continue to follow. A: Cole is a 46 year old male admitted to [facility] on 02/21/22 with choledocholithiasis, gallstone pancreatitis. P: Cole will likely be discharged home with no new services. He will follow up with his community providers and plan of care and transport with family. CM will support Cole and his discharge planning needs.
[2022-02-24] MEDS: Pantoprazole 40 MG TABCR PO (20:25)
[2022-02-24] MEDS: Gabapentin 300 MG CAP PO (20:25)
[2022-02-24] MEDS: Magnesium Gluconate 500 MG TAB 250 MG PO (20:25)
[2022-02-25 03:15] VITALS: BP 105/65; PULSE 58; RESP 17; TEMP 36.8; O2SAT 95
[2022-02-25] MEDS: PIPERACILLIN/TAZO 3.375 GM in Normal Saline 50 ML IVPB (06:23)
[2022-02-25 07:30] VITALS: BP 123/84; PULSE 59; RESP 16; TEMP 36; O2SAT 94
[2022-02-25] MEDS: Pantoprazole 40 MG TABCR PO (08:35)
[2022-02-25] MEDS: Ezetimibe 10 MG TAB PO (08:35)
[2022-02-25] MEDS: Sertraline 100 MG TAB 200 MG PO (08:35)
[2022-02-25] MEDS: Gabapentin 300 MG CAP PO (08:35)
[2022-02-25] MEDS: Magnesium Gluconate 500 MG TAB 250 MG PO (08:36)
[2022-02-25] MEDS: Enoxaparin 30 MG/0.3 ML SYR SC (08:36)
[2022-02-25] MEDS: Budesonide/Formoterol 80/4.5 6.9 GM 60 PUFF INH IH (08:37)
[2022-02-25] MEDS: Fluticasone NASAL SPRAY 16 GM BTL NS (08:37)
--- NOTE | 2022-02-25 09:44 | W.PM.PROGNOT ---
Date of Service Date of service: 02/25/22 Time of Service: 09:44 Assessment and Plan Assessment and plan (1) Acute cholecystitis: Status: Acute Assessment and plan: MRCP showed acute cholecystitis. WBC count almost normal- continue Zosyn tolerating low fat diet Ambulate tid Tentative d/c home later today on PO antibiotics -I discussed with the patient diet, which is his biggest concern. No dairy /pork/nuts or nut-butters or avocados. We reviewed his dinner discharge information clinic to schedule upcoming surgery. Follow up with Surgical Services in 3 weeks to discuss laparoscopic cholecytectomy (2) Pancreatitis: Status: Resolved Assessment and plan: -Unclear etiology, no gallstones on imaging, possibly passed stone prior to hospital admission -triglycerides WNL -Hepatitis panel pending -Continue IV Zosyn to cover for infectious etiologies -Lipase normalized (3) Constipation due to opioid therapy: Status: Acute Assessment and plan: -Bowel regimen (4) Elevated LFTs: Status: Resolved Assessment and plan: -Down-trending, will continue to monitor, hepatitis panel pending (5) Chronic narcotic use: Status: Acute (6) Gastritis: Status: Acute Assessment and plan: ON BID PPI Subjective Subjective Interval history since last seen: Patient denies having any abdominal pain, nausea or vomiting. He is very eager to be d/c home. Exam Const General: cooperative, healthy appearing and comfortable Orientation: alert and oriented x3 Resp Effort & Inspection: normal respiratory effort, no audible wheezes and no cough Objective Last Vital Signs Temp 36.0 C L 02/25/22 07:30 Pulse 59 L 02/25/22 07:30 Resp 16 02/25/22 07:30 BP 123/84 02/25/22 07:30 Pulse Ox 94 02/25/22 07:30 Laboratory Results - last 24 hr 02/21/22 02:21 Hepatitis A IgM Ab Negative Hep Bs Antigen Negative Hep B Core Total Ab Negative Hepatitis C Antibody Negative
[2022-02-25 11:09] LABS: Abs Immature Grans 0.03 10^3/uL (0.0-0.06); Absolute Basophil Count 0.01 10^3/uL (0.0-0.2); Absolute Eosinophil Count 0.17 10^3/uL (0.0-0.7); Absolute Lymphocyte Count 1.99 10^3/uL (1.2-3.4); Absolute Monocyte Count 0.53 10^3/uL (0.1-0.8); Absolute Neutrophil Count 5.64 10^3/uL (1.2-6.7); Basophils % 0.1; HCT 39.5 % (40.0-50.0); HGB 12.9 g/dL (13.5-17.5); Immature Grans % 0.4; Lymphocytes % 23.8; MCH 27.9 pg (27.0-33.0); MCHC 32.7 % (32.0-36.0); MCV 86 fL (80-95); MPV 10.1 fL (8.0-11.0); Monocytes % 6.3; Neutrophils % 67.4; Platelet Count 185 10^3/uL (130-400); RBC 4.62 10^6/uL (4.36-5.78); RDW 15.2 % (11.8-14.1); RDW-SD 47.7 fL; WBC 8.37 10^3/uL (4.4-10.8)
[2022-02-25 11:22] LABS: ALT 57 U/L (16-63); AST 23 U/L (15-37); Alkaline Phosphatase 160 U/L (46-116); Anion Gap 10.1 mmol/L (3-11); BUN 8 mg/dL (7-18); Bilirubin, Total 1.1 mg/dL (0.2-1.0); CO2 27.9 mmol/L (21.0-32.0); CREATININE 0.8 mg/dL (0.70-1.30); Chloride 104 mmol/L (98-107); Glucose 100 mg/dL (74-106); Potassium 3.3 mmol/L (3.5-5.1); Sodium 142 mmol/L (136-145); Total Protein 7.3 g/dL (6.4-8.2)
[2022-02-25 11:26] VITALS: BP 112/58; PULSE 70; RESP 19; TEMP 36.7; O2SAT 96
[2022-02-25 12:21] LABS: C-Reactive Protein 16.97 mg/dL (0.0-0.3)
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
--- NOTE | 2022-02-25 17:40 | PDOC.CMDIS ---
- If Service Date Differs Date of service: 02/25/22 Time of Service: 17:40 LACE Index Scoring Tool - Questions: Length of Stay (in days): 4 - 6 Acuity (Admit via E.D.?): Yes E.D. Visits: 7 - Answers: Total Score: 11 Risk of Readmission: High Risk Care Management Discharge Reason for Hospitalization: Gallstone pancreatitis Discharge Plan: Cole returned home today with no new services. His drove him home via private vehicle. He will follow up with his PCP and discharge plan of care. He is happy to be going home, and was very appreciative of BUTCH, his RN, who he spoke very highly of. Patient/Family Education Needs: Review discharge instructions and limitations, discussion of self care needs including ask me three.
== END 2022-02-25 15:06 | disposition home or self-care (01) | DRG 445 ==
LOC: ER 04:18 → ICU 04:51 → MS 11:48
PROVIDERS: Surgery; Admitting Provider Surgery; Emergency Provider Student in an Organized Health Care Education/Training Program; PCP Family Medicine; Visit Provider Surgery
DX: K81.0 Acute cholecystitis (principal); K86.1 Other chronic pancreatitis; J45.909 Unspecified asthma, uncomplicated; K21.9 Gastro-esophageal reflux disease without esophagitis; E78.5 Hyperlipidemia, unspecified; H90.3 Sensorineural hearing loss, bilateral; Z89.511 Acquired absence of right leg below knee; R73.9 Hyperglycemia, unspecified; F41.8 Other specified anxiety disorders; K59.03 Drug induced constipation; T40.2X5A Adverse effect of other opioids, initial encounter; R79.89 Other specified abnormal findings of blood chemistry; F17.210 Nicotine dependence, cigarettes, uncomplicated; G89.29 Other chronic pain; M79.671 Pain in right foot; G47.00 Insomnia, unspecified; Z98.1 Arthrodesis status; M54.50 Low back pain, unspecified; Z89.021 Acquired absence of right finger(s); G43.909 Migraine, unspecified, not intractable, without status migrainosus; G62.9 Polyneuropathy, unspecified; R91.8 Other nonspecific abnormal finding of lung field; K29.00 Acute gastritis without bleeding; Z79.891 Long term (current) use of opiate analgesic
CPT/HCPCS: 36415; 80048; 80053; 80061; 80076; 83690; 86704; 86709; 86803; 87340; 87635; 94640; 96361; 96365; 96366; 96375; 99222; 99232; 99233; 99238; 99285; U0005; 74181; 76705; 81003; 81015; 82140; 82977; 83605; 83735; 84478; 85025; 85610; 86140; 94667; J0131; J1650; J2270; J2543

== ENCOUNTER 2022-03-10 04:11 | Outpatient (CLI) | payer MEDICARE, MEDICAID, SELFPAY ==
[2022-03-10 13:28] LABS: Hemoglobin A1C 5.8 % (<5.7)
[2022-03-10 16:33] LABS: Calculated LDL 40 mg/dL (<100); Cholesterol 118 mg/dL (<200); HDL Cholesterol 32 mg/dL (40-60); Triglyceride 230 mg/dL (<150); Vitamin B12 304 pg/mL (193-986)
[2022-03-11 19:32] LABS: Zinc, Serum 0.84 mcg/mL (0.66-1.10)
== END 2022-03-10 04:12 | disposition home or self-care (01) ==
LOC: LOS 04:11
PROVIDERS: PCP Family Medicine; Visit Provider Family Medicine
DX: D64.9 Anemia, unspecified (principal); E78.5 Hyperlipidemia, unspecified; R73.9 Hyperglycemia, unspecified
CPT/HCPCS: 36415; 80061; 82607; 83036; 84630

== ENCOUNTER → 2022-03-11 09:53 | Outpatient (BNVA) | payer MEDICARE, MEDICAID, SELFPAY | PROVIDERS: PCP Family Medicine; Referring Provider Family Medicine; Visit Provider Surgery | DX: K81.0 Acute cholecystitis (principal); K85.90 Acute pancreatitis without necrosis or infection, unspecified | CPT/HCPCS: 99213 ==

== ENCOUNTER 2022-04-07 02:19 | Outpatient (CLI) | payer MEDICARE, MEDICAID, SELFPAY | END 2022-04-07 02:20 | disposition home or self-care (01) | LOC: LBO 02:19 | PROVIDERS: PCP Family Medicine; Visit Provider Surgery ==

== ENCOUNTER 2022-04-08 00:42 | Outpatient (CLI) | payer MEDICARE, MEDICAID, SELFPAY ==
[2022-04-08 08:14] LABS: Source Nasal/Nares
[2022-04-08 14:05] LABS: COVID-19 PCR Negative (Negative)
== END 2022-04-08 00:43 | disposition home or self-care (01) ==
PROVIDERS: PCP Family Medicine; Visit Provider Surgery
DX: Z20.822 Contact with and (suspected) exposure to COVID-19 (principal); Z01.818 Encounter for other preprocedural examination
CPT/HCPCS: 87635; U0005

== ENCOUNTER 2022-04-09 07:44 | Day surgery (SDC) | payer MEDICARE, MEDICAID, SELFPAY ==
[2022-04-09] VITALS (11 sets, daily range): BP systolic 100–124; BP diastolic 51–81; PULSE 55–73; RESP 16–28; TEMP 26.1–36.9; O2SAT 91–97; BMI 25.5
--- NOTE | 2022-04-09 06:31 | W.PM.OP ---
Date of service: 04/09/22 Time of Service: 09:46 Operative Note Operative Note DATE OF PROCEDURE: 04/09/22 PRE-OP DIAGNOSIS: Chronic cholecystitis POST-OP DIAGNOSIS: same PROCEDURE: Laparoscopic Cholecystectomy SURGEON: Osiris Petersen SPECIAL CERTIFICATE DICTATOR: Mamie Saravia Refer to Anesthesia Record ESTIMATED BLOOD LOSS: 20 PATHOLOGY: other (gallbladder) COMPLICATIONS: None Patient was transported to: PACU Patient's condition: stable Indications: Mr. Coles is a 46-year-old gentleman admitted with gallstone pancreatitis on February 21.? His lipase on admission was more than 1500.? He has done okay since he was discharged.? He continues to be on a low fat diet.? He complains mostly of bloating and some mild right upper quadrant pain.? We discussed laparoscopic cholecystectomy.? I discussed the anatomy and the procedure in detail using a pamphlet.? We reviewed the risks of the procedure. Risks, benefits, complications were reviewed with the patient in the office.? Complications include but are not limited to bleeding, infection, injury to stomach, small bowel and large bowel, injury to the pancreas, injury to the common bile duct necessitating drainage and referral to tertiary center for repair, bile leak, adverse reactions to the medications, complications of intubation including a sore throat or injury to the uvula, LA, stroke and even .? Questions were entertained and answered to her satisfaction and she wished to proceed.? No guarantees were given or implied. Proceed with laparoscopic cholecystectomy under general anesthetic. Findings: Normal appearing Gallbladder Normal cystic duct Procedure Description: After informed consent was obtained the patient was brought to the operating room, placed in a supine position and monitors were applied. SCDs were applied to her lower extremities and she was placed under general anesthesia and intubated without difficulty. Her abdomen was then prepped and draped in a sterile fashion using ChloraPrep. At this point a timeout was done and the patient's name, date of , procedure type, allergies to medications, metal in her body, antibiotic and DVT prophylaxis were reviewed. Fire risk was assessed. At this point 0.25% Bupivocaine was injected just above the umbilicus into the dermis and subcutaneous tissue. A 5 mm incision was made with an 11 blade. The skin next to the incision was grasped with penetrating towel clamps and while pulling up on the skin a 5 mm port was placed under direct visualization. The abdomen was insuflated and then 3 more ports were placed. A 12 mm port was placed in the subxiphoid area and two 5 mm ports were placed in the right upper quadrant. The liver was inspected and looked normal. The patient's bed was then turned to the left and her head was brought up. The gallbladder was grasped at the body and pushed towards the right shoulder, this allowed me to visualize the neck of the gallbladder. The neck was grasped and pulled towards the right flank and down allowing me to visualize the lymph node. Using a [place] dissector with cautery the lymph node was gently dissected away from the tissues and the fatty tissue was also dissected away. The cystic duct was identified it was normal in size. The duct was dissected 360 degrees using the [place] dissector in order for me to visualize its entrance into the gallbladder. Liver was noted behind it. There were no other structures right behind. Critical view was achieved. 3 clips were placed one proximal and 2 distal and the cystic duct was cut. The cystic artery was then identified and dissected 360 degrees. It was located just medial to the cystic duct. It was visualized going into the gallbladder. Once dissected 3 more clips were placed one proximal and 2 distal and the artery was cut. Using the hook dissector the gallbladder was then dissected away from the liver bed and placed into an Endo Catch bag and pulled through the 12 mm port site. The 12 mm port was placed back into the abdomen under direct visualization. The liver bed was inspected no bleeding was noted. The 12 mm and the 2 right upper quadrant ports were removed under direct visualization and no bleeding was noted from the fascia. The abdomen was deflated completely and lastly the umbilical port was removed. The skin was cleaned and the incisions were closed with 4-0 Vicryl. The skin was dried and skin affix was applied over the closed incisions. Needle, instrument and sponge counts were correct at the end of the case. At this point the patient was woken up, extubated and taken back to recovery in stable condition. There were no immediate complications.
--- NOTE | 2022-04-09 06:34 | W.PM.DSUDISC ---
Discharge Plan Disposition Patient Disposition: HOME Condition: Good Discharge Details Reason For Visit: Chronic Cholecystitis Attending Provider: Osiris Petersen Primary Care Provider: Brian Longo Home Meds and New Rx's Prescriptions: Continued budesonide-formoterol [Symbicort] 80-4.5 mcg/actuation HFA aerosol inhaler 1 puff Inhalation BID Qty: 1 11RF albuterol sulfate [ProAir HFA] 90 mcg/actuation HFA aerosol inhaler 2 puff Inhalation Q6H PRN PRN (Reason: bronchospasm) Qty: 1 3RF atorvastatin 40 mg tablet 40 mg PO DAILY Qty: 90 3RF pantoprazole 40 mg tablet,delayed release (DR/EC) 40 mg PO BID Qty: 180 3RF Trulance 3 mg tablet 3 mg PO DAILY Qty: 90 3RF sertraline 100 mg tablet 200 mg PO DAILY Qty: 180 3RF Rx Instructions: dose increase 04/19/21 dose increase 09/17/21 fluticasone propionate 50 mcg/actuation spray,suspension 2 spray intranasal DAILY Qty: 9.9 5RF Rx Instructions: administer into each nostril (DME) nebulizer and compressor [Comp-Air Elite Comp Neb System] 1 EACH device 1 ea Miscellaneous q 4 h prn Qty: 1 ipratropium-albuterol 0.5 mg-3 mg(2.5 mg base)/3 mL solution for nebulization 3 ml inhalation QID PRN (Reason: wheezing) Qty: 90 3RF ezetimibe [Zetia] 10 mg tablet 10 mg PO DAILY Qty: 90 3RF acetaminophen 500 mg Tablet 1,000 mg PO PRN PRN Discharge Instructions Instructions: Laparoscopic Cholecystectomy (DC) Additional Instructions: Activity at Home after surgery: 1. Make sure you walk outside at least 4 times per day 2. You should be able to climb a flight of stairs 3. No driving while in pain or taking pain medications 4. No strenuous activity or heavy lifting (>10 to 15 lb) for 2 weeks (laparoscopic surgery) or 4 weeks (open surgery) Diet, Nutrition, & wound healin. Avoid alcohol until after you are recovered from your surgery 2. Make sure to eat plenty of lean protein (meat, fish, eggs, cottage cheese, beans) 3. Eat a variety of fruits and vegetables. Eat plenty of high fiber foods to avoid constipation. 4. Drink plenty of liquids to stay hydrated and avoid constipation Pain Medications: 1. Tylenol 650mg every 6 hours as needed and Ibuprofen 600 mg every 6 hours as needed. You may alternate between the 2 medications every 3 hours 2. If a narcotic has been prescribed take as directed only for breakthrough pain For Constipation: 1. Take Milk of Magnesia or MiraLax as needed for constipation Other: 1. You may shower daily. Do not scrub the incisions 2. Do not soak the incisions for 1 week 3. You may alternate ice and heat as needed for pain and swelling Wound Care: 1. Keep the incisions clean and dry Please call our office if you develop: 1. Fevers >101.5 2. Nausea or Vomiting 3. Worsening pain 4. Redness and thick discharge from the wounds If after hours please call the Hospital at and ask to speak to the on-call surgeon Referrals: Osiris Petersen MD [ [facility] STAFF PHYSICIAN] - 04/25/22 9:00 am Activity:: see above Remove Dressings/Wound Care:: Do Not Remove Shower/Bathe:: 24 hours Diet:: see above Discharge Orders Discharge Orders: Discharge Order (Routine); Ordered 04/09/22 Ordered By: Osiris Petersen
--- NOTE | 2022-04-09 08:00 | ANES.PREOP_ITS ---
General Info Date of Service Date Performed: 04/09/22 Height: 5 ft 10 in Weight: 80.7 kg Body Mass Index (BMI): 25.5 Surgical Procedure: Operation Date: 04/09/22 09:10 Proposed Procedure Side Surgeon p Cholecystectomy Laparoscopic Osiris Petersen MD Meds Allergies and Home Medications Allergies Allergy/AdvReac Type Severity Reaction Status Date / Time Fish Containing Products Allergy Intermediate hives Verified 04/08/22 08:42 aspirin AdvReac Intermediate epistaxis Verified 04/08/22 08:42 seafood Allergy Intermediate Hives Uncoded 04/08/22 08:42 hydrocodone-homatropine AdvReac Intermediate GI UPSET Uncoded 04/09/22 07:54 Home Medication Medication Instructions Recorded nebulizer and compressor (Comp-Air #1 ea 07/16/16 Elite Comp Neb System device) atorvastatin 40 mg tablet 40 mg PO DAILY #90 tab-caps 09/17/21 pantoprazole 40 mg tablet,delayed 40 mg PO BID #180 tab-caps 09/17/21 release plecanatide 3 mg tablet (Trulance) 3 mg PO DAILY constipation #90 tabs 09/17/21 sertraline 100 mg tablet 200 mg PO DAILY #180 tabs 09/17/21 fluticasone propionate 50 2 spray intranasal DAILY #9.9 grams 11/13/21 mcg/actuation nasal spray,suspension acetaminophen 500 mg tablet 1,000 mg PO PRN PRN 11/23/21 ipratropium 0.5 mg-albuterol 3 mg 3 ml inhalation QID PRN wheezing 12/05/21 (2.5 mg base)/3 mL nebulization #90 mL soln ezetimibe 10 mg tablet (Zetia) 10 mg PO DAILY #90 tab-caps 12/23/21 albuterol sulfate 90 mcg/actuation 2 puff inhalation Q6H PRN PRN 01/24/22 aerosol inhaler (ProAir HFA) bronchospasm #1 inh budesonide-formoterol HFA 80 1 puff inhalation BID ##1 01/24/22 mcg-4.5 mcg/actuation aerosol inhaler (Symbicort) Current Visit Medications: Current Medications Generic Name Dose Route Start Last Admin Trade Name Freq PRN Reason Stop Dose Admin Acetaminophen 1,000 mg 04/09/22 06:00 Acetaminophen 500 Mg Tab PO 05/08/22 23:59 PREOP MIRANDA Celecoxib 200 mg 04/09/22 06:00 Celecoxib 200 Mg Cap PO 05/08/22 23:59 PREOP MIRANDA Gabapentin 300 mg 04/09/22 06:00 Gabapentin 300 Mg Cap PO 05/08/22 23:59 PREOP MIRANDA Ringer's Solution 1,000 mls @ 80 mls/hr 04/09/22 06:00 IV 05/08/22 23:59 INFUSION MIRANDA Cefazolin Sodium/Dextrose 2 gm in 50 mls @ 100 mls/hr 04/09/22 06:00 Ancef Duplex IVPB 05/08/22 23:59 PREOP MIRANDA Ondansetron HCl 4 mg/ Sodium 52 mls @ 200 mls/hr 04/09/22 06:36 Chloride IVPB Q6H PRN PRN IV Miscellaneous Supplies 1 each 04/09/22 06:00 Iv Access IV 05/08/22 23:59 DIRECTED MIRANDA Sodium Chloride 0 ml 04/09/22 06:00 Normal Saline Flush 10 Ml Syr IV 05/08/22 23:59 PRN PRN Sodium Chloride 0 ml 04/09/22 06:00 Normal Saline 10 Ml Vial IJ 05/08/22 23:59 DIRECTED PRN Sterile Water 0 ml 04/09/22 06:00 Water,Injection,Sterile 10 Ml Vial IJ 05/08/22 23:59 DIRECTED PRN Tramadol HCl 50 mg 04/09/22 06:36 Tramadol 50 Mg Tab PO Q6H PRN PRN Pain PFSH Active Problems Active Problems: Problem Status Onset Code Acute pancreatitis K85.90 Acute cholecystitis K81.0 Below-knee amputation of right lower extremity S88.111A Chest pain at rest R07.9 Tobacco use Z72.0 Medical History Medical History Acquired deformity of nail s/p nail excision and matrix ablation 11/10/19 Ankle pain right, chronic Ankle pain, left Anxiety Arthritis Arthritis FOOT/ANKLE 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 Asthma 09/15/12 Burning sensation of feet Callous ulcer REFERRED TO DERM 12/22/13 Constipation due to opioid therapy Curvature of spine S/P FIXATION WITH RODS Cyst of skin TOP OF LEFT FOOT-PAINFUL Deafness Depression with anxiety Fracture of distal phalanx of right index finger Snowblowing injury Ganglion cyst Gastritis GERD (gastroesophageal reflux disease) History of reduction of closed fracture Hyperglycemia Hyperlipidemia Hypoglycemia Insomnia Leg pain, right Lipoma Loss of taste Low back pain Low back pain associated with a spinal disorder other than radiculopathy or spinal stenosis Lung nodules Migraine Mood disorder deteriorated Neck pain Neuropathy Pain, foot, right, chronic Partial Achilles tendon tear left 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 Snowblowing injury causing partial amputation Surgical revision of amputation DOS: 08/31/18 Partial traumatic transphalangeal amputation of right ring finger Snowblowing injury causing partial amputation Surgical revision of amputation DOS: 08/31/18 Right ankle joint deformity Right leg numbness Scrotal lesion Sebaceous cyst Sensorineural hearing loss of both ears Sinus headache Sprain of unspecified ligament of left ankle, subsequent encounter (06/30/16) Testicular pain, right 11/10/12-COMES AND GOES tobacco abuse Viral warts Wart of hand Surgical History Surgical History Excision, Skin Mass 2008-LUQ LIPOMA Fracture, Closed Treatment ANKLE History of back surgery History of excision of mass History of neck surgery History of spinal surgery History of surgical 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 Tobacco Smoking/Tobacco Use Status: Current every day Tobacco Type: cigarettes Second hand exposure: Yes Alcohol Alcohol Intake: current Alcohol intake frequency: a few times a month Alcohol type: beer Substance Use Substance use: Never Substance use type: does not use Vital Signs and Lab Results Lab Results Blood Type / Crossmatch: No Data to Display Complete Blood Count: No Data to Display Complete Metabolic Panel: Hemoglobin A1c 5.8 % (<5.7) H 03/10/22 11:05 Liver Function Panel: No Data to Display Coagulation Panel: No Data to Display Cardiac Panel: No Data to Display Arterial Blood Gas: No Data to Display Venous Blood Gas: No Data to Display Pancreas Panel: No Data to Display Thyroid Panel: No Data to Display Infectious Disease: Coronavirus (COVID-19)(PCR) Negative (Negative) 04/08/22 06:45 Coronavirus 2019 Source Nasal/Nares 04/08/22 06:45 Blood Cultures: No Data to Display Toxicology Panel: No Data to Display Imaging and Studies Imaging and Studies Study information below may be from another EMR and interpreted by another provider. Please see original notes in EMR for more complete details. EKG Summary: Conclusion Sinus rhythm...normal P axis, V-rate 60- 99 Stress Test Summary: MPI Conclusion The ejection fraction was 41% with stress. There were no wall motion abnormalities. There is no evidence of ischemia on the imaging portion of the exam. This represents a normal SPECT stress test. Anesthesia Assessment and Plan Anesthesia History Personal History: No History of Anesthesia Complications Family History: Family History Unknown Exercise Tolerance Exercise Tolerance: Metabolic Equivalents>4 Pertinent Negatives Pertinent Negatives: No Major Cardiovascular Symptoms or Complaints, No Major Pulmonary Symptoms or Complaints and No History of CVA/TIA Cardiac & Pulmonary Exam Cardiac Exam: Normal S1/S2 Heart Sounds Pulmonary Exam: Clear Bilateral Breath Sounds Implantable Cardiac Device Does patient have a Pacemaker or an ICD?: No Airway Exam Known Difficult Airway: No Mallampati Class: 2 Mouth Opening: Normal (> 3cm) Thyromental Distance: Greater than 3 cm Neck Range of Motion: Full ROM Neck Circumference: Normal Teeth Condition: Edentulous ASA Classification ASA Score: ASA 2 Emergency Case?: No NPO Status NPO Status: NPO Clears >2 hours, Solids >8 hours Anesthesia Plan Resuscitation Status: Full Code Anesthesia Technique: General Anesthesia Airway Planned: Endotracheal Tube Monitors Used: Standard Monitors
[2022-04-09] MEDS: Gabapentin 300 MG CAP PO (08:27)
[2022-04-09] MEDS: Acetaminophen 500 MG TAB 1000 MG PO (08:27)
[2022-04-09] MEDS: Celecoxib 200 MG CAP PO (08:27)
[2022-04-09] MEDS: Lactated Ringers 1,000 ML 80 ML IV (08:28)
[2022-04-09] MEDS: ceFAZolin 2 GM/50 ML BAG IVPB (09:04)
--- NOTE | 2022-04-09 09:36 | GB_PTH ---
PATIENT: Cole Coles LOC: [facility] U#:[id number] AGE/SX: 46/M ROOM: RE04/09/[address]: Osiris Petersen MD : 1975 BED: DIS: 04/09/2022 SPEC #: [id number] RECD: 04/09/22 12:38 STATUS: GEM REQ #: [id number] CAMILO: 04/09/22 09:[address]: Osiris Petersen DEPT: Surgical Specimen RECD BY: Rose Ricci ENTERED: 04/09/22 12:39 SP TYPE: GB OTHR DR: Brian Longo MD Tissues: 1 - GALLBLADDER Procedures: GROSS AND MICRO LEVEL 3 Comments: [id number]
[2022-04-09] MEDS: Ketorolac 15 MG/ML VIAL IVP (10:11)
--- NOTE | 2022-04-09 11:43 | W.ANESPOSTOP ---
Postoperative Evaluation Date, Time and Location Date Performed: 04/09/22 Time Performed: 11:43 Patient Location: Day Surgery Unit Vital Signs Most Recent Imported Vital Signs: Most Recent Vital Signs Temp Pulse Resp BP Pulse Ox 36.1 C L 56 L 16 104/63 95 04/09/22 11:17 04/09/22 11:17 04/09/22 11:17 04/09/22 11:17 04/09/22 11:17 Pain Score Most Recent Pain Score: Most Recent Pain Score Pain Level 0 04/09/22 11:17 Assessment Mental Status: Arousable with meaningful communication Airway and Respiratory Function: Patent airway with normal (patient baseline) respiratory exam Cardiovascular Function: Hemodynamically Stable Hydration Status: Adequately Hydrated Nausea & Vomiting: No Nausea or Vomiting Pain: Pain is tolerable per patient (Reports soreness to his throat) Peripheral Nerve Block: Patient did not receive a nerve block
== END 2022-04-09 13:00 | disposition home or self-care (01) ==
PROVIDERS: PCP Family Medicine; Visit Provider Surgery
PROC: 0FT44ZZ Resection of Gallbladder, Percutaneous Endoscopic Approach (ICD-10-PCS; CPT 47562; principal; 2022-04-09 09:00)
DX: K81.1 Chronic cholecystitis (principal); F17.210 Nicotine dependence, cigarettes, uncomplicated; E78.5 Hyperlipidemia, unspecified; K21.9 Gastro-esophageal reflux disease without esophagitis; Z89.511 Acquired absence of right leg below knee
CPT/HCPCS: 47562; 88304; J0690; J1100; J1885; J2250; J2405; J2704; J3010

== ENCOUNTER → 2022-04-25 08:58 | Outpatient (BNVA) | payer MEDICARE, MEDICAID, SELFPAY | PROVIDERS: PCP Family Medicine; Referring Provider Family Medicine; Visit Provider Physical Therapy Assistant | DX: Z48.815 Encounter for surgical aftercare following surgery on the digestive system (principal) ==

== ENCOUNTER 2022-05-27 00:37 | Emergency (ER) | payer MEDICARE, MEDICAID, SELFPAY ==
[2022-05-27 00:48] VITALS: BP 110/46; PULSE 67; RESP 18; TEMP 36.8; O2SAT 95
--- NOTE | 2022-05-27 01:00 | DI.CT_ITS ---
Exam(s) CT ABDOMEN PELVIS W EXAM: CT ABDOMEN PELVIS W CLINICAL HISTORY: mid to lower abdomen pain, ?sbo. TECHNIQUE: Imaging Protocol: Axial computed tomography images with coronal and sagittal reformatted images were created and reviewed CONTRAST MATERIAL: Intravenous: Omnipaque 350 Contrast volume:100 ml Oral: / no COMPARISON: CT CT ABDOMEN PELVIS WO from 02/20/2022 MR MR ABDOMEN WO from 02/21/2022 FINDINGS: ABDOMEN: Lung Bases: Dependent changes. Liver: Normal density. No measurable mass. Gallbladder and biliary tract: Status post cholecystectomy. No residual fluid collection in the gall bladder fossa. No radiodense calculus visible. There is now abnormal dilatation of the common bile duct in the head of the pancreas, measuring up to 12 millimeters. There is an adjacent cystic area i n more anteriorly in the pancreatic head measuring 18 millimeters. The common hepatic duct is not ap pear dilated. Pancreatic duct is not visible. Pancreas: Some fatty replacement. No abnormal calcifications or inflammatory process. Spleen: Normal. Kidneys: Normal size, contour and axis. No radiodense stones or obstructive uropathy. No masses seen. Adrenal glands: No masses seen. Abdominal Aorta: Abdominal portion non-dilated. PELVIS: Bladder: No gross wall thickening. No calculi.No focal mass. Bowel: No obstruction or bowel wall thickening. Appendix normal. Peritoneal cavity: No ascites, collection or mesenteric inflammatory response. Bones: Fusion hardware in the lower lumbar spine degenerative changes at the more superior lumbar lev els. No compression fractures. Reproductive organs: Within normal limits. Lymph nodes: Unremarkable. Impression: Status post cholecystectomy. There is now dilatation of the distal common bile duct in the head of t he pancreas and question of an adjacent cyst/s. No stone is visible. RADIATION DOSE DELIVERED: 909.75mGy.cm Total DLP DATA REPOSITORY: All CT scans at this facility are submitted to the National Radiology Data Registry (NRDR) Dose Index Registry (DIR) with the [employer] (ACR). RADIATION OPTIMIZATION: All CT scans at this facility use at least one of these dose optimization te chniques: automated exposure control; mA and/or kV adjustment per patient size (includes targeted exa ms where dose is matched to clinical indication); or iterative reconstruction.
--- NOTE | 2022-05-27 01:09 | ED.GENADUL_ITS ---
Discharge Plan Disposition Patient Disposition: HOME Condition: Stable Discharge Details Clinical Impression: Acute pancreatitis Primary Care Provider: Brian Longo ED Provider: Jian Campuzano Home Meds and New Rx's Prescriptions: Continued budesonide-formoterol [Symbicort] 80-4.5 mcg/actuation HFA aerosol inhaler 1 puff Inhalation BID Qty: 1 11RF albuterol sulfate [ProAir HFA] 90 mcg/actuation HFA aerosol inhaler 2 puff Inhalation Q6H PRN PRN (Reason: bronchospasm) Qty: 1 3RF atorvastatin 40 mg tablet 40 mg PO DAILY Qty: 90 3RF pantoprazole 40 mg tablet,delayed release (DR/EC) 40 mg PO BID Qty: 180 3RF Trulance 3 mg tablet 3 mg PO DAILY Qty: 90 3RF sertraline 100 mg tablet 200 mg PO DAILY Qty: 180 3RF Rx Instructions: dose increase 04/19/21 dose increase 09/17/21 fluticasone propionate 50 mcg/actuation spray,suspension 2 spray intranasal DAILY Qty: 9.9 5RF Rx Instructions: administer into each nostril (DME) nebulizer and compressor [Comp-Air Elite Comp Neb System] 1 EACH device 1 ea Miscellaneous q 4 h prn Qty: 1 ipratropium-albuterol 0.5 mg-3 mg(2.5 mg base)/3 mL solution for nebulization 3 ml inhalation QID PRN (Reason: wheezing) Qty: 90 3RF ezetimibe [Zetia] 10 mg tablet 10 mg PO DAILY Qty: 90 3RF acetaminophen 500 mg Tablet 1,000 mg PO PRN PRN Discharge Instructions Instructions: Pancreatitis (ED) Additional Instructions: follow up with your primary care provider within 1 week if you feel more ill, have severe worsening pain or fevers return to the emergen cy department Medical Decision Making 46 yo male who has a cholecystectomy for chronic cholecystitis in March and stats he has had pancreatitis in the past comes in with abdominal pain. He states he has had abdominal pain and intermittent n/v since his surgery but the last few days has been worse. He states tonight he has not been able to control his pain and had several episodes of n/v so came here. Denies fevers, chills, chest pain, dyspnea. He arrives stable though appears uncomfortable, speaking in full sentences during exam. He localizes the pain to the epigastric region and is tender here as well as in the left lower abdomen. Given recent surgery and his history, concern for sbo and also pancreatitis, will obtain labs including cbc, lipase, cmp, and also ct abd/pelvis to further evaluate. labs remarkable for lipase over 1000, has had pancreatitis in the past but was thought to possibly be related to gallstones and has had his gallbladder out in March. Unfortunately the hospital power went out shortly after orders were placed and is now on a back up generator, and the CT scanner doesn't work on the back up generator. I offered to admit for pain control while ct is pending and he declined as he states he feels his pain is controlled he would rather go home. ct shows dilated extrahepatic biliary ducts. He is sleeping and awakens easily, no longer has any abdominal tenderness. Again offered admission for pain control and possible mrcp but he declines and wants to go home, he has decision making capacity and given his pain is now gone feel it is reasonable for him to not be hospitalized. He was advised to f/u with pcp and return precautions given Differential Diagnosis Differential Diagnosis: gastritis, pancreatitis, sbo Medical Records Medical records reviewed: Yes I reviewed the patient's medical records. Imaging Data Radiologic Study: Attestation: I personally reviewed and interpreted this imaging study as follows: Imaging: CT Scan Radiologist's impression: There is evidence of extrahepatic biliary duct dilatation, with the extrahepatic common duct measuring 1.2 cm. The common duct at the level of the head of the pancreas measures 1.8 cm. Multiple dilated ducts at the level of the head of the pancreas. Correlation with MRCP is recommended for additional assessment. Lab Data Lab results reviewed: Yes I reviewed the patient's lab results. HPI General Date/Time Provider Initiated Documentation: 05/27/22 00:38 . Limitations to Documentation: no limitations . Information obtained by: patient . History of Present Illness 46 year old M presents to the emergency department with the chief complaint of abdominal pain, described as moderate, and is localized to the abdomen. Patient reports no radiation. Patient started experiencing this month(s) (1) and it has been constant. No relieving factors improve symptom(s), No exacerbating factors reported . Patient notes nausea/vomiting. Patient did receive the following treatments prior to arrival, none Related Data Home Medications Medication Instructions Recorded Confirmed nebulizer and compressor (Comp-Air #1 ea 07/16/16 05/14/22 Elite Comp Neb System device) atorvastatin 40 mg tablet 40 mg PO DAILY #90 tab-caps 09/17/21 05/27/22 pantoprazole 40 mg tablet,delayed 40 mg PO BID #180 tab-caps 09/17/21 05/14/22 release plecanatide 3 mg tablet (Trulance) 3 mg PO DAILY constipation #90 tabs 09/17/21 05/27/22 sertraline 100 mg tablet 200 mg PO DAILY #180 tabs 09/17/21 05/27/22 fluticasone propionate 50 2 spray intranasal DAILY #9.9 grams 11/13/21 05/27/22 mcg/actuation nasal spray,suspension acetaminophen 500 mg tablet 1,000 mg PO PRN PRN 11/23/21 05/27/22 ipratropium 0.5 mg-albuterol 3 mg 3 ml inhalation QID PRN wheezing 12/05/21 05/27/22 (2.5 mg base)/3 mL nebulization #90 mL soln ezetimibe 10 mg tablet (Zetia) 10 mg PO DAILY #90 tab-caps 12/23/21 05/27/22 albuterol sulfate 90 mcg/actuation 2 puff inhalation Q6H PRN PRN 01/24/22 05/27/22 aerosol inhaler (ProAir HFA) bronchospasm #1 inh budesonide-formoterol HFA 80 1 puff inhalation BID ##1 01/24/22 05/27/22 mcg-4.5 mcg/actuation aerosol inhaler (Symbicort) Previous Rx's Medication Instructions Recorded atorvastatin 40 mg tablet 40 mg PO DAILY #90 tab-caps 09/17/21 pantoprazole 40 mg tablet,delayed 40 mg PO BID #180 tab-caps 09/17/21 release plecanatide 3 mg tablet (Trulance) 3 mg PO DAILY constipation #90 tabs 09/17/21 sertraline 100 mg tablet 200 mg PO DAILY #180 tabs 09/17/21 fluticasone propionate 50 2 spray intranasal DAILY #9.9 grams 11/13/21 mcg/actuation nasal spray,suspension ipratropium 0.5 mg-albuterol 3 mg 3 ml inhalation QID PRN wheezing 12/05/21 (2.5 mg base)/3 mL nebulization #90 mL soln ezetimibe 10 mg tablet (Zetia) 10 mg PO DAILY #90 tab-caps 12/23/21 albuterol sulfate 90 mcg/actuation 2 puff inhalation Q6H PRN PRN 01/24/22 aerosol inhaler (ProAir HFA) bronchospasm #1 inh budesonide-formoterol HFA 80 1 puff inhalation BID ##1 01/24/22 mcg-4.5 mcg/actuation aerosol inhaler (Symbicort) Allergies Allergy/AdvReac Type Severity Reaction Status Date / Time Fish Containing Products Allergy Intermediate hives Verified 05/27/22 00:55 aspirin AdvReac Intermediate epistaxis Verified 05/27/22 00:55 seafood Allergy Intermediate Hives Uncoded 05/27/22 00:55 hydrocodone-homatropine AdvReac Intermediate GI UPSET Uncoded 05/27/22 00:55 General Stated Complaint: Abd Prob DONG: 2 Review of Systems All systems reviewed & are unremarkable except as noted in HPI and below Constitutional Constitutional: Denies chills, Denies fever(s) and Denies weakness Cardiovascular Cardiovascular: Denies chest pain and Denies dyspnea Respiratory Respiratory: Denies cough and Denies dyspnea Musculoskeletal Musculoskeletal: Denies joint swelling Integumentary/Breasts Skin/Breast: Denies rash Neurologic Neurologic: Denies weakness PFSH All Active Problems Skin ulcer (Acute) Acute pancreatitis (Acute) Acute cholecystitis (Acute) Below-knee amputation of right lower extremity (Acute) Chest pain at rest (Acute) RADIATION DOWN HIS ARMS Tobacco use (Acute) Medical History Acquired deformity of nail s/p nail excision and matrix ablation 11/10/19 Ankle pain right, chronic Ankle pain, left Anxiety Arthritis Arthritis FOOT/ANKLE 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 Asthma 09/15/12 Burning sensation of feet Callous ulcer REFERRED TO DERM 12/22/13 Constipation due to opioid therapy Curvature of spine S/P FIXATION WITH RODS Cyst of skin TOP OF LEFT FOOT-PAINFUL Deafness Depression with anxiety Fracture of distal phalanx of right index finger Snowblowing injury Ganglion cyst Gastritis GERD (gastroesophageal reflux disease) History of reduction of closed fracture Hyperglycemia Hyperlipidemia Hypoglycemia Insomnia Leg pain, right Lipoma Loss of taste Low back pain Low back pain associated with a spinal disorder other than radiculopathy or spinal stenosis Lung nodules Migraine Mood disorder deteriorated Neck pain Neuropathy Pain, foot, right, chronic Partial Achilles tendon tear left 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 Snowblowing injury causing partial amputation Surgical revision of amputation DOS: 08/31/18 Partial traumatic transphalangeal amputation of right ring finger Snowblowing injury causing partial amputation Surgical revision of amputation DOS: 08/31/18 Right ankle joint deformity Right leg numbness Scrotal lesion Sebaceous cyst Sensorineural hearing loss of both ears Sinus headache Sprain of unspecified ligament of left ankle, subsequent encounter (06/30/16) Testicular pain, right 11/10/12-COMES AND GOES tobacco abuse Viral warts Wart of hand Surgical History Excision, Skin Mass 2008-LUQ LIPOMA Fracture, Closed Treatment ANKLE History of back surgery History of excision of mass History of neck surgery History of spinal surgery History of surgical 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 Family History Father Alcohol abuse Essential hypertension Heart disease Neoplasm Stroke Mother Essential hypertension COPD (chronic obstructive pulmonary disease) Depression Hyperlipidemia Neoplasm Stroke Asthma SIBLING ADHD (attention deficit hyperactivity disorder) Sister No problems noted. Brother Essential hypertension Grandfather Diabetes Alcohol abuse Grandfather Brain tumor Stroke Grandmother Diabetes Grandmother Heart disease Neoplasm Cervical cancer Stroke Family History Blood disorder Neoplasm Stomach,melanoma Social History Smoking/Tobacco Use Status: Current every day Tobacco Type: cigarettes Tobacco: How many years used: 30 Second Hand Exposure: Yes Smoking risk assessment performed?: Yes Alcohol Intake: current Alcohol Intake frequency: a few times a month Alcohol type: beer Drug use: Never Substance use type: does not use Household members: spouse Housing: apartment Number of Children: 4 Communication Needs: Hard of Hearing Do you need help understanding health information?: Rarely Pets and animals: Yes Pets and animals: cat(s) and dog(s) Sexually active: No Do you think of yourself as: straight/heterosexual Current gender identity: female What is your relationship status?: How often do you talk on the phone with friends or family?: three or more times per week Do you belong to any clubs or organized social groups?: no Panel score (0-1 are the most socially isolated patients): 2 What type of physical activity do you participate in: walking, aerobic and swimming Duration: < 15 minutes/day Mariajose/Sabianism: No preference Special mariajose needs: No Seatbelt use: always Helmet use: No Drive intox or ride w/intox car pick up driver: No Do you feel safe at home: Yes Do you feel safe in your relationship?: Yes Exam Const General: no acute distress Orientation: alert HENMT Head: normal to inspection Ears: external ears normal General nose exam: external nose normal Mouth: moist mucous membranes Eyes General: appearance normal, both eyes and all related structures Neck Neck: normal visual inspection Resp Effort & Inspection: normal respiratory effort and able to speak in complete sentences Cardio Rate: regular rate GI Palpation: tender Skin General skin exam: no rashes or lesions noted Neuro General: patient alert and patient oriented x3 Extrem General: normal to inspection Psych Mental Status: mental status grossly normal Course Vital Signs Vital signs: Vital Signs Temperature 36.8 C 05/27/22 00:48 Pulse 67 05/27/22 00:48 Respiratory Rate 18 05/27/22 00:48 Blood Pressure 110/46 L 05/27/22 00:48 Pulse Oximetry 95 05/27/22 00:48 Temperature 36.8 C 05/27/22 00:48 Temperature Source Temporal Artery Scan 05/27/22 00:48 Pulse 67 05/27/22 00:48 Respiratory Rate 18 05/27/22 00:48 Respiratory Effort Non-Labored 05/27/22 00:51 Blood Pressure 110/46 L 05/27/22 00:48 Blood Pressure Position Supine 05/27/22 00:48 Pulse Oximetry 95 05/27/22 00:48 Oxygen Delivery Method Room Air 05/27/22 00:48 Oxygen Flow Rate 0 05/27/22 00:48 Pain Level 10 05/27/22 00:48 PAWSS Have you Been Recently Intoxicated or Drunk Within the Last 30 days?: Yes Have you Ever Experienced Previous Episodes of Alcohol Withdrawal?: No Have you ever Experienced Withdrawal Seizures?: No Have you ever Experienced Delirium Tremens(DT)s?: No Have you ever undergone Alcohol Rehabilitation Treatment (i.e, inpt ot outpatient treatment programs)?: No Have you ever Experienced Blackouts?: No Have you ever Combined Alcohol with other Downers within the last 90 days?: No Have you ever Combined Alcohol with any other Substance of Abuse during the last 90 days?: No Positive Blood Alcohol level on Presentation? [PCS.BAL]: No Evidence of Increased Autonomic Activity (i.e. HR>120, tremor, sweating, agitation, nausea)?: No Result: 1
[2022-05-27 01:16] LABS: Source Nasal/Nares
[2022-05-27 01:19] LABS: Abs Immature Grans 0.03 10^3/uL (0.0-0.06); Absolute Eosinophil Count 0.14 10^3/uL (0.0-0.7); Absolute Lymphocyte Count 3.53 10^3/uL (1.2-3.4); Absolute Monocyte Count 0.77 10^3/uL (0.1-0.8); Basophils % 0.2; Eosinophils % 1.1; HGB 16.6 g/dL (13.5-17.5); Immature Grans % 0.2; Lymphocytes % 28.3; MCH 28.1 pg (27.0-33.0); MCHC 33.2 % (32.0-36.0); MCV 85 fL (80-95); MPV 9.5 fL (8.0-11.0); Monocytes % 6.2; Platelet Count 217 10^3/uL (130-400); RDW 15.2 % (11.8-14.1); RDW-SD 46.5 fL; WBC 12.47 10^3/uL (4.4-10.8)
[2022-05-27] MEDS: HYDROmorphone 2 MG/ML VIAL 1 MG IVP ×2 (01:26→02:37)
[2022-05-27] MEDS: Normal Saline 1,000 ML 1000 ML IV (01:26)
[2022-05-27] MEDS: Ondansetron 4 MG/2 ML VIAL IVP (01:27)
[2022-05-27 01:35] LABS: Absolute Basophil Count 0.02 10^3/uL (0.0-0.2); Absolute Neutrophil Count 7.98 10^3/uL (1.2-6.7)
[2022-05-27 02:02] LABS: BUN 9 mg/dL (7-18); CREATININE 0.8 mg/dL (0.70-1.30); Calcium 9.5 mg/dL (8.5-10.1); Glucose 120 mg/dL (74-106); Total Protein 7.7 g/dL (6.4-8.2)
[2022-05-27 02:03] LABS: ALT 32 U/L (16-63); AST 29 U/L (15-37); Alkaline Phosphatase 117 U/L (46-116); Anion Gap 9.9 mmol/L (3-11); Bilirubin, Direct 0.1 mg/dL (0.0-0.2); Bilirubin, Total 0.8 mg/dL (0.2-1.0); CO2 27.1 mmol/L (21.0-32.0); Chloride 105 mmol/L (98-107); ETHANOL BLOOD < 3.0 mg/dL (<10); Magnesium 2.1 mg/dL (1.8-2.4); Potassium 3.8 mmol/L (3.5-5.1); Sodium 142 mmol/L (136-145)
[2022-05-27 02:13] LABS: Lipase 1316 U/L (73-393)
[2022-05-27 02:29] LABS: COVID-19 PCR Negative (Negative)
[2022-05-27 02:40] LABS: Triglyceride 290 mg/dL (<150)
[2022-05-27] MEDS: Omnipaque 350 MG/ML 100 ML BTL IJ (03:27)
[2022-05-27] MEDS: Normal Saline Flush 10 ML SYR IVP (03:51)
--- NOTE | 2022-05-27 05:49 | DI.VRAD_ITS ---
PROCEDURE INFORMATION: Exam: CT Abdomen And Pelvis With Contrast Exam date and time: 05/27/2022 3:07 AM Age: 46 years old Clinical indication: Abdominal pain; Localized; Prior surgery; Surgery date: 1-6 months; Surgery type: Gallbladder removed a month or so ago per PT. HX of back surgery; Patient HX: Mid to lower abdomen pain, ? sbo TECHNIQUE: Imaging protocol: Computed tomography of the abdomen and pelvis with contrast. Radiation optimization: All CT scans at this facility use at least one of these dose optimization techniques: automated exposure control; mA and/or kV adjustment per patient size (includes targeted exams where dose is matched to clinical indication); or iterative reconstruction. Contrast material: OMNIPAQUE 350; Contrast volume: 100 ml; Contrast route: INTRAVENOUS (IV); COMPARISON: MR ABDOMEN WO 02/21/2022 3:11 PM FINDINGS: Lungs: Bibasilar dependent atelectasis. Liver: Unremarkable. Gallbladder and bile ducts: Cholecystectomy. There is evidence of extrahepatic biliary duct dilatation, with the extrahepatic common duct measuring 1.2 cm. The common duct at the level of the head of the pancreas measures 1.8 cm. Pancreas: Dilatation of the ductal system of the level of the head of the pancreas, with the common duct measuring 1.8 cm. Spleen: Normal. No splenomegaly. Adrenal glands: Normal. No mass. Kidneys and ureters: Normal. No hydronephrosis. Stomach and bowel: Unremarkable. No obstruction. No mucosal thickening. Appendix: No evidence of appendicitis. Intraperitoneal space: Unremarkable. No free air. No significant fluid collection. Vasculature: Unremarkable. No abdominal aortic aneurysm. Lymph nodes: Unremarkable. No enlarged lymph nodes. Urinary bladder: Unremarkable as visualized. Reproductive: Unremarkable as visualized. Bones/joints: Postoperative changes of lumbar fusion. Soft tissues: Unremarkable. IMPRESSION: There is evidence of extrahepatic biliary duct dilatation, with the extrahepatic common duct measuring 1.2 cm. The common duct at the level of the head of the pancreas measures 1.8 cm. Multiple dilated ducts at the level of the head of the pancreas. Correlation with MRCP is recommended for additional assessment. Dictated and Authenticated by: Joni Hein MD. Ordering:BECKI Villar MD
== END 2022-05-27 06:34 | disposition home or self-care (01) ==
PROVIDERS: Emergency Provider Emergency Medicine; PCP Family Medicine
DX: K85.90 Acute pancreatitis without necrosis or infection, unspecified (principal); F17.210 Nicotine dependence, cigarettes, uncomplicated; Z20.822 Contact with and (suspected) exposure to COVID-19; Z79.899 Other long term (current) drug therapy
CPT/HCPCS: 80053; 83690; 87635; 96361; 96374; 96375; 96376; 99284; 99285; 74177; 80320; 82248; 83605; 83735; 84478; 85025; J2405; J3490

== ENCOUNTER 2022-05-28 15:45 | Observation (INO) | payer MEDICARE, MEDICAID, SELFPAY ==
[2022-05-28 16:19] VITALS: BP 116/84; PULSE 87; RESP 16; O2SAT 97
[2022-05-28 17:56] VITALS: BP 105/50; PULSE 69; RESP 27; O2SAT 96
[2022-05-28 17:58] LABS: Abs Immature Grans 0.03 10^3/uL (0.0-0.06); Absolute Basophil Count 0.03 10^3/uL (0.0-0.2); Absolute Eosinophil Count 0.09 10^3/uL (0.0-0.7); Absolute Monocyte Count 0.64 10^3/uL (0.1-0.8); Basophils % 0.2; Eosinophils % 0.7; HCT 46.6 % (40.0-50.0); HGB 15.4 g/dL (13.5-17.5); Immature Grans % 0.2; Lymphocytes % 28.6; MCH 28.4 pg (27.0-33.0); MCV 86 fL (80-95); MPV 9.6 fL (8.0-11.0); Monocytes % 5.1; Neutrophils % 65.2; Platelet Count 199 10^3/uL (130-400); RBC 5.43 10^6/uL (4.36-5.78); RDW 14.9 % (11.8-14.1); RDW-SD 46.9 fL; WBC 12.59 10^3/uL (4.4-10.8)
[2022-05-28 18:00] LABS: Bilirubin Moderate (Negative); Blood Negative (Negative); Clarity Clear (Clear); Glucose Negative (Negative); Ketones 15 mg/dL (Negative); Leukocyte Esterase Negative (Negative); Nitrite Negative (Negative); Specific Gravity >= 1.030 (1.005-1.025); Urobilinogen 0.2 EU/dL (Up TO 0.2); pH 5.5 (5-8)
[2022-05-28 18:00] LABS: Absolute Neutrophil Count 8.21 10^3/uL (1.2-6.7)
[2022-05-28 18:17] LABS: Bacteria Negative HPF (Negative); C & S Indicated? No; Casts Negative LPF (Negative); Crystals Negative HPF (Negative); Epithelial Cells Rare HPF (Negative); Mucus Moderate (Negative); RBC 0-2 HPF (0-2); WBC 0-2 HPF (0-5)
[2022-05-28 18:30] LABS: ALT 27 U/L (16-63); AST 26 U/L (15-37); Albumin 3.9 g/dL (3.4-5.0); Alkaline Phosphatase 118 U/L (46-116); Anion Gap 9.3 mmol/L (3-11); BUN 11 mg/dL (7-18); Bilirubin, Total 1.6 mg/dL (0.2-1.0); CO2 29.7 mmol/L (21.0-32.0); CREATININE 0.8 mg/dL (0.70-1.30); Calcium 9.4 mg/dL (8.5-10.1); Chloride 103 mmol/L (98-107); Glucose 83 mg/dL (74-106); Lipase 238 U/L (73-393); Potassium 4.2 mmol/L (3.5-5.1); Sodium 142 mmol/L (136-145); Total Protein 7.2 g/dL (6.4-8.2)
[2022-05-28] MEDS: Normal Saline 1,000 ML 1000 ML IV (18:47)
[2022-05-28] MEDS: Ondansetron 4 MG/2 ML VIAL IVP (18:48)
[2022-05-28] MEDS: HYDROmorphone 2 MG/ML VIAL 1 MG IVP (18:49)
[2022-05-28 18:52] VITALS: BP 98/60; PULSE 77; RESP 15; O2SAT 94
--- NOTE | 2022-05-28 19:27 | ED.GENADUL_ITS ---
Discharge Plan Disposition Patient Disposition: [facility] INPATIENT Condition: Stable Discharge Details Clinical Impression: Abdominal pain, Leukocytosis Admit Date/Time: 05/28/22 18:58 Admit Provider: Osiris Petersen Attending Provider: Osiris Petersen Primary Care Provider: Brian Longo. ED Provider: Ra Oquendo Medical Decision Making This is a 46-year-old gentleman who was seen in the ER yesterday for abdominal pain, nausea, vomiting, diarrhea, diagnosed with elevated lipase and CT resulted with dilated biliary duct, recommended admission and likely MRCP but patient left AMA. Patient went home and subsequently followed up with the [facility] today who recommended coming back to the ER. Patient reports ongoing discomfort, nausea, vomiting, diarrhea. He did have a lap fausto back in March. Plan is to obtain IV access, give IV fluids, Zofran, Dilaudid, pain routine screening laboratory values including a lipase. I see no clear indication to repeat CT imaging. Patient does report moderate improvement of his symptoms with the medication. Still reports no appetite, declines p.o. intake. Patient continues to have mild nonspecific leukocytosis of 12.59, otherwise laboratory values are grossly unremarkable. He does have a slightly elevated bilirubin at 1.6, AST 26, ALT 27 alk phosphatase 118 lipase is normal today at 238, it was elevated over 1300 yesterday. Urinalysis unremarkable for infection. Given the recommendation of admission yesterday for MRCP in the setting of ongoing abdominal pain, nausea, vomiting, diarrhea, I will discussed the case with our surgical team. While he does not have an elevated lipase today it was quite elevated yesterday. Case was discussed with Dr. Petersen who is agreeable to admit to her services, will likely perform MRCP tomorrow. Patient comfortable with this plan. This documentation was generated using Night Up[employer] system, please disregard any oddities of phrase or misspellings. Medical Records Medical records reviewed: Yes I reviewed the patient's medical records. Lab Data Lab results reviewed: Yes I reviewed the patient's lab results. Labs: Laboratory Tests Range/Units 05/28/22 05/28/22 05/28/22 17:48 17:48 17:50 WBC (4.4-10.8) 10^3/uL 12.59 H RBC (4.36-5.78) 10^6/uL 5.43 Hgb (13.5-17.5) g/dL 15.4 Hct (40.0-50.0) % 46.6 MCV (80-95) fL 86 MCH (27.0-33.0) pg 28.4 MCHC (32.0-36.0) % 33.0 RDW (11.8-14.1) % 14.9 H Plt Count (130-400) 10^3/uL 199 MPV (8.0-11.0) fL 9.6 Immature Gran % 0.2 Neutrophils % 65.2 Lymphocytes % 28.6 Monocytes % 5.1 Eosinophils % 0.7 Basophils % 0.2 Nucleated RBC % (0.0-0.3) % 0.0 Absolute Neutrophils (1.2-6.7) 10^3/uL 8.21 H Absolute Lymphocytes (1.2-3.4) 10^3/uL 3.60 H Absolute Monocytes (0.1-0.8) 10^3/uL 0.64 Absolute Eosinophils (0.0-0.7) 10^3/uL 0.09 Absolute Basophils (0.0-0.2) 10^3/uL 0.03 Sodium (136-145) mmol/L 142 Potassium (3.5-5.1) mmol/L 4.2 Chloride (98-107) mmol/L 103 Carbon Dioxide (21.0-32.0) mmol/L 29.7 Anion Gap (3-11) mmol/L 9.3 BUN (7-18) mg/dL 11 Creatinine (0.70-1.30) mg/dL 0.8 Estimated GFR/1.73 m2 (mL/min/1.73m2) >= 60.00 Glucose (74-106) mg/dL 83 Calcium (8.5-10.1) mg/dL 9.4 Total Bilirubin (0.2-1.0) mg/dL 1.6 H AST (15-37) U/L 26 ALT (16-63) U/L 27 Alkaline Phosphatase (46-116) U/L 118 H Total Protein (6.4-8.2) g/dL 7.2 Albumin (3.4-5.0) g/dL 3.9 Lipase (73-393) U/L 238 Urine Color (Yellow) Yellow Urine Clarity (Clear) Clear Urine pH (5-8) 5.5 Ur Specific Castor (1.005-1.025) >= 1.030 H Urine Protein (Negative) mg/dL Trace H Urine Ketones (Negative) mg/dL 15 H Urine Blood (Negative) Negative Urine Nitrite (Negative) Negative Urine Bilirubin (Negative) Moderate H Urine Urobilinogen (Up TO 0.2) EU/dL 0.2 Ur Leukocyte Esterase (Negative) Negative Urine RBC (0-2) HPF 0-2 Urine WBC (0-5) HPF 0-2 Ur Epithelial Cells (Negative) HPF Rare Urine Crystals (Negative) HPF Negative Urine Bacteria (Negative) HPF Negative Urine Casts (Negative) LPF Negative Urine Mucus (Negative) Moderate Urine Other Ur Culture Indicated? No Urine Glucose (Negative) mg/dL Negative Range/Units 05/28/22 17:50 WBC (4.4-10.8) 10^3/uL RBC (4.36-5.78) 10^6/uL Hgb (13.5-17.5) g/dL Hct (40.0-50.0) % MCV (80-95) fL MCH (27.0-33.0) pg MCHC (32.0-36.0) % RDW (11.8-14.1) % Plt Count (130-400) 10^3/uL MPV (8.0-11.0) fL Immature Gran % Neutrophils % Lymphocytes % Monocytes % Eosinophils % Basophils % Nucleated RBC % (0.0-0.3) % Absolute Neutrophils (1.2-6.7) 10^3/uL Absolute Lymphocytes (1.2-3.4) 10^3/uL Absolute Monocytes (0.1-0.8) 10^3/uL Absolute Eosinophils (0.0-0.7) 10^3/uL Absolute Basophils (0.0-0.2) 10^3/uL Sodium (136-145) mmol/L Potassium (3.5-5.1) mmol/L Chloride (98-107) mmol/L Carbon Dioxide (21.0-32.0) mmol/L Anion Gap (3-11) mmol/L BUN (7-18) mg/dL Creatinine (0.70-1.30) mg/dL Estimated GFR/1.73 m2 (mL/min/1.73m2) Glucose (74-106) mg/dL Calcium (8.5-10.1) mg/dL Total Bilirubin (0.2-1.0) mg/dL AST (15-37) U/L ALT (16-63) U/L Alkaline Phosphatase (46-116) U/L Total Protein (6.4-8.2) g/dL Albumin (3.4-5.0) g/dL Lipase (73-393) U/L Urine Color (Yellow) Urine Clarity (Clear) Urine pH (5-8) Ur Specific Castor (1.005-1.025) Urine Protein (Negative) mg/dL Urine Ketones (Negative) mg/dL Urine Blood (Negative) Urine Nitrite (Negative) Urine Bilirubin (Negative) Urine Urobilinogen (Up TO 0.2) EU/dL Ur Leukocyte Esterase (Negative) Urine RBC (0-2) HPF Cancelled Urine WBC (0-5) HPF Cancelled Ur Epithelial Cells (Negative) HPF Cancelled Urine Crystals (Negative) HPF Cancelled Urine Bacteria (Negative) HPF Cancelled Urine Casts (Negative) LPF Cancelled Urine Mucus (Negative) Cancelled Urine Other Cancelled Ur Culture Indicated? Cancelled Urine Glucose (Negative) mg/dL HPI General Mode of arrival: ambulatory . Date/Time Provider Initiated Documentation: 05/28/22 16:54 . Limitations to Documentation: no limitations . Information obtained by: patient and family . History of Present Illness 46 year old M presents to the emergency department with the chief complaint of abd pain, described as severe and similar to prior episodes, with intensity rated at 8. Quality is described as aching and sharp, and is localized to the abdomen. Patient reports no radiation. Patient started experiencing this day(s) and it has been constant. No relieving factors improve symptom(s), No exacerbating factors reported . Patient notes loss of appetite, nausea/vomiting and other (Diarrhea). Patient did receive the following treatments prior to arrival, other (Patient seen in [facility] care, sent to the ER) Related Data Home Medications Medication Instructions Recorded Confirmed nebulizer and compressor (Comp-Air #1 ea 07/16/16 05/28/22 Elite Comp Neb System device) atorvastatin 40 mg tablet 40 mg PO DAILY #90 tab-caps 09/17/21 05/28/22 pantoprazole 40 mg tablet,delayed 40 mg PO BID #180 tab-caps 09/17/21 05/28/22 release plecanatide 3 mg tablet (Trulance) 3 mg PO DAILY constipation #90 tabs 09/17/21 05/28/22 sertraline 100 mg tablet 200 mg PO DAILY #180 tabs 09/17/21 05/28/22 fluticasone propionate 50 2 spray intranasal DAILY #9.9 grams 11/13/21 05/28/22 mcg/actuation nasal spray,suspension acetaminophen 500 mg tablet 1,000 mg PO PRN PRN 11/23/21 05/28/22 ipratropium 0.5 mg-albuterol 3 mg 3 ml inhalation QID PRN wheezing 12/05/21 05/28/22 (2.5 mg base)/3 mL nebulization #90 mL soln ezetimibe 10 mg tablet (Zetia) 10 mg PO DAILY #90 tab-caps 12/23/21 05/28/22 albuterol sulfate 90 mcg/actuation 2 puff inhalation Q6H PRN PRN 01/24/22 05/28/22 aerosol inhaler (ProAir HFA) bronchospasm #1 inh budesonide-formoterol HFA 80 1 puff inhalation BID ##1 01/24/22 05/28/22 mcg-4.5 mcg/actuation aerosol inhaler (Symbicort) Previous Rx's Medication Instructions Recorded atorvastatin 40 mg tablet 40 mg PO DAILY #90 tab-caps 09/17/21 pantoprazole 40 mg tablet,delayed 40 mg PO BID #180 tab-caps 09/17/21 release plecanatide 3 mg tablet (Trulance) 3 mg PO DAILY constipation #90 tabs 09/17/21 sertraline 100 mg tablet 200 mg PO DAILY #180 tabs 09/17/21 fluticasone propionate 50 2 spray intranasal DAILY #9.9 grams 11/13/21 mcg/actuation nasal spray,suspension ipratropium 0.5 mg-albuterol 3 mg 3 ml inhalation QID PRN wheezing 12/05/21 (2.5 mg base)/3 mL nebulization #90 mL soln ezetimibe 10 mg tablet (Zetia) 10 mg PO DAILY #90 tab-caps 12/23/21 albuterol sulfate 90 mcg/actuation 2 puff inhalation Q6H PRN PRN 01/24/22 aerosol inhaler (ProAir HFA) bronchospasm #1 inh budesonide-formoterol HFA 80 1 puff inhalation BID ##1 01/24/22 mcg-4.5 mcg/actuation aerosol inhaler (Symbicort) Allergies Allergy/AdvReac Type Severity Reaction Status Date / Time Fish Containing Products Allergy Intermediate hives Verified 05/28/22 16:22 aspirin AdvReac Intermediate epistaxis Verified 05/28/22 16:22 seafood Allergy Intermediate Hives Uncoded 05/28/22 16:22 hydrocodone-homatropine AdvReac Intermediate GI UPSET Uncoded 05/28/22 16:22 General Stated Complaint: Abd Prob DONG: 3 Review of Systems Constitutional Constitutional: Denies fatigue, Denies fever(s) and Denies weakness ENT Ears, Nose, Mouth, and Throat: Denies neck pain Cardiovascular Cardiovascular: Denies chest pain and Denies dyspnea Respiratory Respiratory: Denies cough and Denies dyspnea Gastrointestinal Gastrointestinal: Reports abdominal pain, Denies melena, Denies hematochezia, Reports diarrhea, Reports nausea and Reports vomiting Genitourinary Genitourinary: Denies dysuria Musculoskeletal Musculoskeletal: Denies back pain and Denies neck pain Integumentary/Breasts Skin/Breast: Denies rash Neurologic Neurologic: Denies weakness Endocrine Endocrine: Denies fatigue Hematologic/Lymphatic Hematologic/Lymphatic: Denies easy bleeding and Denies easy bruising PFSH All Active Problems Abdominal pain (Acute) Leukocytosis (Acute) Skin ulcer (Acute) Acute pancreatitis (Acute) Acute cholecystitis (Acute) Below-knee amputation of right lower extremity (Acute) Chest pain at rest (Acute) RADIATION DOWN HIS ARMS Tobacco use (Acute) Medical History Acquired deformity of nail s/p nail excision and matrix ablation 11/10/19 Ankle pain right, chronic Ankle pain, left Anxiety Arthritis Arthritis FOOT/ANKLE 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 Asthma 09/15/12 Burning sensation of feet Callous ulcer REFERRED TO DERM 12/22/13 Constipation due to opioid therapy Curvature of spine S/P FIXATION WITH RODS Cyst of skin TOP OF LEFT FOOT-PAINFUL Deafness Depression with anxiety Fracture of distal phalanx of right index finger Snowblowing injury Ganglion cyst Gastritis GERD (gastroesophageal reflux disease) History of reduction of closed fracture Hyperglycemia Hyperlipidemia Hypoglycemia Insomnia Leg pain, right Lipoma Loss of taste Low back pain Low back pain associated with a spinal disorder other than radiculopathy or spinal stenosis Lung nodules Migraine Mood disorder deteriorated Neck pain Neuropathy Pain, foot, right, chronic Partial Achilles tendon tear left 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 Snowblowing injury causing partial amputation Surgical revision of amputation DOS: 08/31/18 Partial traumatic transphalangeal amputation of right ring finger Snowblowing injury causing partial amputation Surgical revision of amputation DOS: 08/31/18 Right ankle joint deformity Right leg numbness Scrotal lesion Sebaceous cyst Sensorineural hearing loss of both ears Sinus headache Sprain of unspecified ligament of left ankle, subsequent encounter (06/30/16) Testicular pain, right 11/10/12-COMES AND GOES tobacco abuse Viral warts Wart of hand Surgical History Excision, Skin Mass 2008-LUQ LIPOMA Fracture, Closed Treatment ANKLE History of back surgery History of excision of mass History of neck surgery History of spinal surgery History of surgical 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 Family History Father Alcohol abuse Essential hypertension Heart disease Neoplasm Stroke Mother Essential hypertension COPD (chronic obstructive pulmonary disease) Depression Hyperlipidemia Neoplasm Stroke Asthma SIBLING ADHD (attention deficit hyperactivity disorder) Sister No problems noted. Brother Essential hypertension Grandfather Diabetes Alcohol abuse Grandfather Brain tumor Stroke Grandmother Diabetes Grandmother Heart disease Neoplasm Cervical cancer Stroke Family History Blood disorder Neoplasm Stomach,melanoma Social History Smoking/Tobacco Use Status: Current every day Tobacco Type: cigarettes Tobacco: How many years used: 30 Second Hand Exposure: Yes Smoking risk assessment performed?: Yes Alcohol Intake: current Alcohol Intake frequency: a few times a month Alcohol type: beer Drug use: Never Substance use type: does not use Household members: spouse Housing: apartment Number of Children: 4 Communication Needs: Hard of Hearing Do you need help understanding health information?: Rarely Pets and animals: Yes Pets and animals: cat(s) and dog(s) Sexually active: No Do you think of yourself as: straight/heterosexual Current gender identity: female What is your relationship status?: How often do you talk on the phone with friends or family?: three or more times per week Do you belong to any clubs or organized social groups?: no Panel score (0-1 are the most socially isolated patients): 2 What type of physical activity do you participate in: walking, aerobic and swimming Duration: < 15 minutes/day Mariajose/Samaritan: No preference Special mariajose needs: No Seatbelt use: always Helmet use: No Drive intox or ride w/intox 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: No Do you feel safe at home: Yes Do you feel safe in your relationship?: Yes Exam Const General: cooperative, healthy appearing and no acute distress Orientation: alert, awake and oriented x3 HENMT Head: normal to inspection, normocephalic and atraumatic Face and sinus: normal facial exam Mouth: moist mucous membranes Eyes General: appearance normal, both eyes and all related structures Conjunctivae: conjunctivae normal Neck Neck: normal visual inspection, full ROM, trachea midline and supple Resp Effort & Inspection: normal respiratory effort and able to speak in complete sentences Auscultation: clear to auscultation bilaterally Cardio Rate: regular rate Rhythm: regular rhythm GI Inspection: normal to inspection Palpation: soft, no aortic enlargement, no guarding, no pulsatile masses and tender in the epigastrum and in the LUQ; not at McBurney's point, Bose's sign negative and with no rebound tenderness Auscultation: normal bowel sounds Back/Spine/Pelvis Back: No back tenderness Skin General skin exam: no rashes or lesions noted Neuro General: patient alert, patient awake, moves all extremities and no focal motor deficits Cognition: normal cognition Speech: speech normal Gait: normal gait Sensory Exam: no sensory deficits noted Psych Appearance: grossly normal Mental Status: mental status grossly normal Course Vital Signs Vital signs: Vital Signs Pulse 87 05/28/22 16:19 Respiratory Rate 16 05/28/22 16:19 Blood Pressure 116/84 05/28/22 16:19 Pulse Oximetry 97 05/28/22 16:19 Temperature Source Temporal Artery Scan 05/28/22 16:19 Pulse 77 05/28/22 18:52 Respiratory Rate 15 05/28/22 18:52 Respiratory Effort 05/28/22 17:39 Blood Pressure 98/60 L 05/28/22 18:52 Blood Pressure Position Supine 05/28/22 16:19 Pulse Oximetry 94 05/28/22 18:52 Oxygen Delivery Method Room Air 05/28/22 18:52 Oxygen Flow Rate 0 05/28/22 18:52 Pain Level 10 05/28/22 18:50 Lab/Test Results Lab/Test Results: Laboratory Tests Range/Units 05/28/22 05/28/22 05/28/22 17:48 17:48 17:50 WBC (4.4-10.8) 10^3/uL 12.59 H RBC (4.36-5.78) 10^6/uL 5.43 Hgb (13.5-17.5) g/dL 15.4 Hct (40.0-50.0) % 46.6 MCV (80-95) fL 86 MCH (27.0-33.0) pg 28.4 MCHC (32.0-36.0) % 33.0 RDW (11.8-14.1) % 14.9 H Plt Count (130-400) 10^3/uL 199 MPV (8.0-11.0) fL 9.6 Immature Gran % 0.2 Neutrophils % 65.2 Lymphocytes % 28.6 Monocytes % 5.1 Eosinophils % 0.7 Basophils % 0.2 Nucleated RBC % (0.0-0.3) % 0.0 Absolute Neutrophils (1.2-6.7) 10^3/uL 8.21 H Absolute Lymphocytes (1.2-3.4) 10^3/uL 3.60 H Absolute Monocytes (0.1-0.8) 10^3/uL 0.64 Absolute Eosinophils (0.0-0.7) 10^3/uL 0.09 Absolute Basophils (0.0-0.2) 10^3/uL 0.03 Sodium (136-145) mmol/L 142 Potassium (3.5-5.1) mmol/L 4.2 Chloride (98-107) mmol/L 103 Carbon Dioxide (21.0-32.0) mmol/L 29.7 Anion Gap (3-11) mmol/L 9.3 BUN (7-18) mg/dL 11 Creatinine (0.70-1.30) mg/dL 0.8 Estimated GFR/1.73 m2 (mL/min/1.73m2) >= 60.00 Glucose (74-106) mg/dL 83 Calcium (8.5-10.1) mg/dL 9.4 Total Bilirubin (0.2-1.0) mg/dL 1.6 H AST (15-37) U/L 26 ALT (16-63) U/L 27 Alkaline Phosphatase (46-116) U/L 118 H Total Protein (6.4-8.2) g/dL 7.2 Albumin (3.4-5.0) g/dL 3.9 Lipase (73-393) U/L 238 Urine Color (Yellow) Yellow Urine Clarity (Clear) Clear Urine pH (5-8) 5.5 Ur Specific Castor (1.005-1.025) >= 1.030 H Urine Protein (Negative) mg/dL Trace H Urine Ketones (Negative) mg/dL 15 H Urine Blood (Negative) Negative Urine Nitrite (Negative) Negative Urine Bilirubin (Negative) Moderate H Urine Urobilinogen (Up TO 0.2) EU/dL 0.2 Ur Leukocyte Esterase (Negative) Negative Urine RBC (0-2) HPF 0-2 Urine WBC (0-5) HPF 0-2 Ur Epithelial Cells (Negative) HPF Rare Urine Crystals (Negative) HPF Negative Urine Bacteria (Negative) HPF Negative Urine Casts (Negative) LPF Negative Urine Mucus (Negative) Moderate Urine Other Ur Culture Indicated? No Urine Glucose (Negative) mg/dL Negative Range/Units 05/28/22 17:50 WBC (4.4-10.8) 10^3/uL RBC (4.36-5.78) 10^6/uL Hgb (13.5-17.5) g/dL Hct (40.0-50.0) % MCV (80-95) fL MCH (27.0-33.0) pg MCHC (32.0-36.0) % RDW (11.8-14.1) % Plt Count (130-400) 10^3/uL MPV (8.0-11.0) fL Immature Gran % Neutrophils % Lymphocytes % Monocytes % Eosinophils % Basophils % Nucleated RBC % (0.0-0.3) % Absolute Neutrophils (1.2-6.7) 10^3/uL Absolute Lymphocytes (1.2-3.4) 10^3/uL Absolute Monocytes (0.1-0.8) 10^3/uL Absolute Eosinophils (0.0-0.7) 10^3/uL Absolute Basophils (0.0-0.2) 10^3/uL Sodium (136-145) mmol/L Potassium (3.5-5.1) mmol/L Chloride (98-107) mmol/L Carbon Dioxide (21.0-32.0) mmol/L Anion Gap (3-11) mmol/L BUN (7-18) mg/dL Creatinine (0.70-1.30) mg/dL Estimated GFR/1.73 m2 (mL/min/1.73m2) Glucose (74-106) mg/dL Calcium (8.5-10.1) mg/dL Total Bilirubin (0.2-1.0) mg/dL AST (15-37) U/L ALT (16-63) U/L Alkaline Phosphatase (46-116) U/L Total Protein (6.4-8.2) g/dL Albumin (3.4-5.0) g/dL Lipase (73-393) U/L Urine Color (Yellow) Urine Clarity (Clear) Urine pH (5-8) Ur Specific Castor (1.005-1.025) Urine Protein (Negative) mg/dL Urine Ketones (Negative) mg/dL Urine Blood (Negative) Urine Nitrite (Negative) Urine Bilirubin (Negative) Urine Urobilinogen (Up TO 0.2) EU/dL Ur Leukocyte Esterase (Negative) Urine RBC (0-2) HPF Cancelled Urine WBC (0-5) HPF Cancelled Ur Epithelial Cells (Negative) HPF Cancelled Urine Crystals (Negative) HPF Cancelled Urine Bacteria (Negative) HPF Cancelled Urine Casts (Negative) LPF Cancelled Urine Mucus (Negative) Cancelled Urine Other Cancelled Ur Culture Indicated? Cancelled Urine Glucose (Negative) mg/dL
[2022-05-28 20:28] LABS: Source Nasal/Nares
[2022-05-28 20:39] VITALS: BP 106/64; PULSE 66; RESP 20; TEMP 36.5; O2SAT 95
[2022-05-28] MEDS: Lactated Ringers 1,000 ML 125 ML IV (20:56)
[2022-05-28 21:16] LABS: COVID-19 PCR Negative (Negative)
[2022-05-28] MEDS: Enoxaparin 40 MG/0.4 ML SYR SC (22:10)
[2022-05-28] MEDS: Ketorolac 30 MG/ML VIAL IVP (22:10)
[2022-05-28] MEDS: Pantoprazole 40 MG VIAL IVP (22:10)
[2022-05-28] MEDS: ACETAMINOPHEN 1,000 MG/100 ML BTL 400 MG IVPB (22:11)
[2022-05-28] MEDS: Budesonide/Formoterol 80/4.5 6.9 GM 60 PUFF INH IH (22:11)
[2022-05-28 23:54] VITALS: BP 91/53; PULSE 57; RESP 17; TEMP 36.6; O2SAT 92
--- NOTE | 2022-05-29 | DI.MRI_ITS ---
Exam(s) MR ABDOMEN WO EXAM: MR ABDOMEN WO/MRCP CLINICAL HISTORY: s/p cholecystectomy pancreatitis TECHNIQUE: Multiplanar multisequence MRI was performed with both pre and post contrast infused seque nces. Contrast injected sequences were performed following IV injection of cc of Dotarem. COMPARISON: CT CT ABDOMEN PELVIS WO from 02/20/2022 MR MR ABDOMEN WO from 02/21/2022 US US ABDOMEN LIMITED from 02/21/[address] ABDOMEN PELVIS W from 05/27/2022 FINDINGS: VISUALIZED LUNG BASES: Mild infiltrate and atelectasis noted in the lung bases, slightly more so on t he right side in the posterior basal segment right lower lobe. No large pleural effusions. There is no ascites evident. No abnormal mesenteric masses nor mesenteric lymphadenopathy evident. No evidence of bowel obstruction. LIVER: No focal hepatic lesions nor dilatation of intrahepatic ducts. No evidence of intrahepatic abs cess. BILIARY/PANCREAS: the gallbladder is now surgically absent. there is no abnormal fluid collection in the gallbladder fossa. the cbd is not dilated., the CBD is not dilated.However, there new findings in the pancreatic head level, not evident on the prior MRI scan of 02/21/2022 and corresponding to the new finding on the CT scan of 05/27/2022. This is immediately adjacent to the intrapancreatic CBD and is a serpiginous cystic structure measuring 3.6 cm AP by 2.5 cm wide by 3 cm craniocaudal. This cont ains multiple small similar appearing focal hypointensities. The main pancreatic duct diameter is now slightly prominent in the neck, body and tail of the pancreas, not previously the case. The uncinate process retains normal triangular configuration. The there is no regional lymphadenopathy evident. SPLEEN: Spleen is not enlarged and there are no intrasplenic lesions. ADRENALS: There are no significant adrenal masses. KIDNEYS: No solid renal masses. No hydronephrosis.No cysts evident. ABDOMINAL AORTA: Not enlarged and there is no significant para-aortic adenopathy. ANTERIOR ABDOMINAL WALL/GI: There is no evidence of significant anterior abdominal wall hernia in the field of view of this study.Is no evidence of obvious bowel obstruction. OSSEOUS: There are no lytic osseous lesions in the field of view of this study. IMPRESSION: 1. There is a new serpiginous abnormal cystic structure in the pancreatic head and neck measuring francisco javier roximately 3.6 x 2.5 x 3 cm, medially J sent to the nondilated CBD at the pancreatic head level and a ssociated with new mild dilatation of the pancreatic duct within the neck, body, and tail of the panc reas. Given that there has been recent cholecystectomy, and that this finding was not evident on CT a nd MRI scan of February 2022, most logical explanation would be either intrapancreatic pseudocyst from int erval bout of pancreatitis or pancreatic abscess. Cystic neoplasm would be less likely given that thi s was not evident 3 months ago. Other consideration is that this may be a contained intrapancreatic b ile leak. 2. The gallbladder is surgically absent. No evidence of abnormal collection in the gallbladder fossa nor perihepatic fluid typical of a bile leak. 3. No evidence of intrahepatic abscess nor other focal findings in the upper abdomen. DATA REPOSITORY:
[2022-05-29] MEDS: Ketorolac 30 MG/ML VIAL IVP ×4 (04:06→22:16)
[2022-05-29] MEDS: Lactated Ringers 1,000 ML 125 ML IV ×3 (04:37→21:18)
[2022-05-29] MEDS: ACETAMINOPHEN 1,000 MG/100 ML BTL 400 MG IVPB ×3 (06:23→22:17)
[2022-05-29 07:03] LABS: Abs Immature Grans 0.02 10^3/uL (0.0-0.06); Absolute Basophil Count 0.02 10^3/uL (0.0-0.2); Absolute Eosinophil Count 0.09 10^3/uL (0.0-0.7); Absolute Lymphocyte Count 3.28 10^3/uL (1.2-3.4); Absolute Monocyte Count 0.39 10^3/uL (0.1-0.8); Basophils % 0.3; Eosinophils % 1.4; HCT 41.9 % (40.0-50.0); HGB 13.7 g/dL (13.5-17.5); Immature Grans % 0.3; Lymphocytes % 49.7; MCH 28.2 pg (27.0-33.0); MCHC 32.7 % (32.0-36.0); MCV 86 fL (80-95); MPV 10.3 fL (8.0-11.0); Monocytes % 5.9; Neutrophils % 42.4; Platelet Count 169 10^3/uL (130-400); RBC 4.85 10^6/uL (4.36-5.78); RDW 14.7 % (11.8-14.1); RDW-SD 46.9 fL
[2022-05-29 07:21] VITALS: BP 112/50; PULSE 61; RESP 16; TEMP 35.9; O2SAT 97
[2022-05-29 07:25] LABS: ALT 23 U/L (16-63); AST 27 U/L (15-37); Albumin 2.9 g/dL (3.4-5.0); Alkaline Phosphatase 89 U/L (46-116); Anion Gap 7.4 mmol/L (3-11); BUN 13 mg/dL (7-18); Bilirubin, Total 1.5 mg/dL (0.2-1.0); CO2 27.6 mmol/L (21.0-32.0); CREATININE 0.7 mg/dL (0.70-1.30); Calcium 8.5 mg/dL (8.5-10.1); Chloride 107 mmol/L (98-107); Glucose 75 mg/dL (74-106); Lipase 430 U/L (73-393); Potassium 3.9 mmol/L (3.5-5.1); Sodium 142 mmol/L (136-145); Total Protein 5.9 g/dL (6.4-8.2)
[2022-05-29] MEDS: Budesonide/Formoterol 80/4.5 6.9 GM 60 PUFF INH IH ×2 (07:37→19:20)
[2022-05-29] MEDS: Normal Saline Flush 10 ML SYR IVP ×7 (07:51→16:19)
[2022-05-29] MEDS: MORPHine 2 MG/ML SYR IVP ×2 (07:51→11:41)
[2022-05-29] MEDS: Fluticasone NASAL SPRAY 16 GM BTL NS (08:42)
--- NOTE | 2022-05-29 09:02 | INITIAL_ITS ---
- If Service Date Differs Date of service: 05/29/22 Time of Service: 09:02 Care Management Initial Assess REASON FOR HOSPITALIZATION:: Abdominal pain PAST MEDICAL HISTORY/PAST SURGICAL HISTORY:: All Active Problems (Updated 02/21/22 @ 13:02 by Abi Winslow DO). Constipation due to opioid therapy (Acute). Elevated serum GGT level (Acute). Elevated LFTs (Acute). Pancreatitis (Chronic). Chronic narcotic use (Acute). Gastritis (Acute). Asthma (Acute). Insomnia (Acute). Hyperglycemia (Acute). Below-knee amputation of right lower extremity (Acute). Sinus headache (Acute). Depression with anxiety (Acute). Pain, foot, right, chronic (Acute). Lipoma (Acute). Neck pain (Acute). Constipation (Acute). Right leg numbness (Acute). Leg pain, right (Acute). Postsurgical arthrodesis status (Acute 08/22/20). rt ankle. Low back pain associated with a spinal disorder other than radiculopathy or spinal stenosis (Acute). Low back pain (Chronic). Partial traumatic transphalangeal amputation of right ring finger (Acute). Snowblowing injury causing partial amputation. Surgical revision of amputation. DOS: 08/31/18. 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 (Acute). Snowblowing injury causing partial amputation. Surgical revision of amputation. DOS: 08/31/18. Fracture of distal phalanx of right index finger (Acute). Snowblowing injury. Ankle pain (Acute). right, chronic. Arthritis (Acute). FOOT/ANKLE. Asthma (Acute). 09/15/12. Callous ulcer (Acute). REFERRED TO DERM 12/22/13. Chest pain at rest (Acute). RADIATION DOWN HIS ARMS. Curvature of spine (Acute). S/P FIXATION WITH RODS. Cyst of skin (Acute). TOP OF LEFT FOOT-PAINFUL. Depression with anxiety (Acute). GERD (gastroesophageal reflux disease) (Acute). Hyperlipemia (Acute). Hypoglycemia (Acute). Migraine (Acute). Sprain of unspecified ligament of left ankle, subsequent encounter (Acute 06/30/16). Testicular pain, right (Acute). 11/10/12-COMES AND GOES. Tobacco use (Acute). Viral warts (Acute). Mood disorder (Chronic). deteriorated. Status post carpal tunnel release (Acute). History of spinal surgery (Acute). History of reduction of closed fracture (Acute). History of neck surgery (Acute). History of excision of mass (Acute). Burning sensation of feet (Acute). Acquired deformity of nail (Acute). s/p nail excision and matrix ablation 11/10/19. Scrotal lesion (Acute). Sebaceous cyst (Acute). Ganglion cyst (Acute). Ankle pain, left (Acute). Arthritis of right subtalar joint (Acute). Medical History . Anxiety. Arthritis. Arthritis of right ankle. Deafness. GERD (gastroesophageal reflux disease). Hyperlipidemia. Lung nodules. Neuropathy. Partial Achilles tendon tear. left. Right ankle joint deformity. Sensorineural hearing loss of both ears. tobacco abuse. Surgical History . Excision, Skin Mass. 2008- LUQ LIPOMA. Fracture, Closed Treatment. ANKLE. History of back surgery. History of surgical amputation of finger of right hand. pt. reports putting hand in snow ranger. Hx of arthroscopic knee surgery. Hx of right BKA. 11/21/21 [facility] [place] (Dr Murray). NECK SURGERY. 09/19-WITH METAL PLATE. Open Carpal Tunnel release. 204-RIGHT. Tibial fracture. S/P tibial nail fixation. PREVIOUS FUNCTIONAL STATUS/SOCIAL/FAMILY SUPPORTS:: Cole lives in [place] with his Kendra and an elderly gentleman. He has 2 children, one lives in [facility] and the other is in [place], [place] He is close to his children and identifies them as a source of support. Cole also has 2 step children that he is not allowed to have contact with. He is disabled and does not drive, although his does and can transport him as needed. CURRENT FUNCTIONAL STATUS:: Cole was siting up in bed when CM met with him. He was pleasant in interaction and agreeable to conversation. Cole stated that things have been going fairly well at home but that he has had to give up his job. He is on disability but was allowed to work 17 hours per week. With recurrent bouts of illness however, he has been losing work and felt it best to resign. He indicated that he does not believe he will need any new services at discharge. ADVANCE DIRECTIVES:: on file. Kendra ABRAMS Has patient been provided with info about the portal/API?: Yes Did the patient sign up for the portal?: Yes (previously) CODE STATUS:: Full Code INSURANCE COVERAGE / FINANCIAL ISSUES:: Medicare. Medicaid CURRENT HOME/COMMUNITY SERVICES/EQUIPMENT:: no services but Cole is on disability. PRIMARY CARE PHYSICIAN:: Brian Longo POTENTIAL DISCHARGE NEEDS:: follow up with PCP PATIENT/FAMILY EDUCATION NEEDS:: Review of discharge instructions, follow up plan, medications, activity, limitations and discuss Ask Me Three TRANSPORTATION:: via private vehicle PLAN:: Cole will likely be discharged home with no new services. He will follow up with his community providers and plan of care and transport with family. CM will support Cole and his discharge planning needs.
[2022-05-29 15:29] VITALS: BP 109/64; PULSE 55; RESP 18; TEMP 35.8; O2SAT 93
[2022-05-29] MEDS: Ondansetron 4 MG/2 ML VIAL IVP (16:19)
--- NOTE | 2022-05-29 20:59 | W.PM.PROGNOT ---
Date of Service Date of service: 05/29/22 Time of Service: 20:59 Assessment and Plan Assessment and plan (1) Abdominal pain: Status: Acute Assessment and plan: I discussed this case with Dr. Diop at [facility] for consideration of ERCP. His feeling is that is most consistent with pancreatic pseudocyst, and he prefers to wait and reassess growth or maturation prior to ERCP. We will trial low fat diet and repeat LFT tomorrow Subjective Subjective Interval history since last seen: MRI results reviewed. New finding of serpiginous lesion in the head of the pancreas consistent with pancreatic pseudocyst or abscess. Objective Last Vital Signs Temp 96.4 F L 05/29/22 15:29 Pulse 55 L 05/29/22 15:29 Resp 18 05/29/22 15:29 BP 109/64 05/29/22 15:29 Pulse Ox 93 05/29/22 15:29 Laboratory Results - last 24 hr 05/28/22 05/29/22 05/29/22 20:22 06:10 06:10 WBC 6.60 RBC 4.85 Hgb 13.7 Hct 41.9 MCV 86 MCH 28.2 MCHC 32.7 RDW 14.7 H Plt Count 169 MPV 10.3 Immature Gran % 0.3 Neutrophils % 42.4 Lymphocytes % 49.7 Monocytes % 5.9 Eosinophils % 1.4 Basophils % 0.3 Nucleated RBC % 0.0 Absolute Neutrophils 2.80 Absolute Lymphocytes 3.28 Absolute Monocytes 0.39 Absolute Eosinophils 0.09 Absolute Basophils 0.02 Sodium 142 Potassium 3.9 Chloride 107 Carbon Dioxide 27.6 Anion Gap 7.4 BUN 13 Creatinine 0.7 Estimated GFR/1.73 m2 >= 60.00 Glucose 75 Calcium 8.5 Total Bilirubin 1.5 H AST 27 ALT 23 Alkaline Phosphatase 89 Total Protein 5.9 L Albumin 2.9 L Lipase 430 H SARS-CoV-2 (PCR) Negative
[2022-05-29] MEDS: Pantoprazole 40 MG VIAL IVP (22:16)
[2022-05-29] MEDS: Mylanta Suspension 30 ML CUP PO (22:17)
[2022-05-29] MEDS: Enoxaparin 40 MG/0.4 ML SYR SC (22:17)
[2022-05-29 23:05] VITALS: BP 110/70; PULSE 51; RESP 18; TEMP 36.6; O2SAT 94
[2022-05-30] MEDS: Ketorolac 30 MG/ML VIAL IVP (04:56)
[2022-05-30] MEDS: ACETAMINOPHEN 1,000 MG/100 ML BTL 400 MG IVPB (05:00)
[2022-05-30] MEDS: Lactated Ringers 1,000 ML 125 ML IV (05:00)
[2022-05-30 06:44] LABS: ALT 19 U/L (16-63); AST 24 U/L (15-37); Albumin 2.8 g/dL (3.4-5.0); Alkaline Phosphatase 82 U/L (46-116); Anion Gap 7.3 mmol/L (3-11); BUN 10 mg/dL (7-18); CO2 25.7 mmol/L (21.0-32.0); CREATININE 0.6 mg/dL (0.70-1.30); Calcium 8.5 mg/dL (8.5-10.1); Chloride 108 mmol/L (98-107); Glucose 97 mg/dL (74-106); Potassium 3.9 mmol/L (3.5-5.1); Sodium 141 mmol/L (136-145); Total Protein 5.7 g/dL (6.4-8.2)
--- NOTE | 2022-05-30 07:23 | W.PM.PROGNOT ---
Date of Service Date of service: 05/30/22 Time of Service: 07:23 Assessment and Plan Assessment and plan (1) Abdominal pain: Status: Acute Assessment and plan: Abdominal pain has improved. Tolerating Low Fat diet Will send Consult to [place] at [facility] [place] Recommended Continued use of PPI Subjective Subjective Interval history since last seen: Patient reports that he is feeling okay this morning. He states that the only discomfort he is having is the feeling of bile, is coming up and he is pointing to his epigastric region. He states he cannot tolerate mylanta, it makes me gag. Exam Const General: cooperative, healthy appearing and comfortable Orientation: alert and oriented x3 Resp Effort & Inspection: normal respiratory effort, no audible wheezes and no cough GI Inspection: normal to inspection Palpation: soft, no guarding and nontender Objective Last Vital Signs Temp 36.6 C 05/29/22 23:05 Pulse 51 L 05/29/22 23:05 Resp 18 05/29/22 23:05 BP 110/70 05/29/22 23:05 Pulse Ox 94 05/29/22 23:05 Laboratory Results - last 24 hr 05/29/22 05/30/22 06:10 06:03 Sodium 142 141 Potassium 3.9 3.9 Chloride 107 108 H Carbon Dioxide 27.6 25.7 Anion Gap 7.4 7.3 BUN 13 10 Creatinine 0.7 0.6 L Estimated GFR/1.73 m2 >= 60.00 >= 60.00 Glucose 75 97 Calcium 8.5 8.5 Total Bilirubin 1.5 H 1.0 AST 27 24 ALT 23 19 Alkaline Phosphatase 89 82 Total Protein 5.9 L 5.7 L Albumin 2.9 L 2.8 L Lipase 430 H
--- NOTE | 2022-05-30 07:29 | W.PM.DS.N ---
Date of service: 05/30/22 Time of Service: 07:29 DS: Diagnosis Discharge Diagnosis (1) Abdominal pain: Status: Acute Discharge Plan Disposition Patient Disposition: HOME Condition: Stable Discharge Details Reason For Visit: Nausea and Vomiting Admit Date/Time: 05/28/22 18:58 Admit Provider: Osiris Petersen Attending Provider: Osiris Petersen Primary Care Provider: Brian Longo Hospital Course Hospital Course: 46 y/o male admitted for further for abdominal pain, elevated lipase and CT scan which showed dilated biliary duct with recommendation of MRCP. MRCP was completed which showed question of pancreatic pseudocyst. Patient's symptoms of abdominal pain, nausea Home Meds and New Rx's Prescriptions: No Action budesonide-formoterol [Symbicort] 80-4.5 mcg/actuation HFA aerosol inhaler 1 puff Inhalation BID Qty: 1 11RF albuterol sulfate [ProAir HFA] 90 mcg/actuation HFA aerosol inhaler 2 puff Inhalation Q6H PRN PRN (Reason: bronchospasm) Qty: 1 3RF atorvastatin 40 mg tablet 40 mg PO DAILY Qty: 90 3RF pantoprazole 40 mg tablet,delayed release (DR/EC) 40 mg PO BID Qty: 180 3RF Trulance 3 mg tablet 3 mg PO DAILY Qty: 90 3RF sertraline 100 mg tablet 200 mg PO DAILY Qty: 180 3RF Rx Instructions: dose increase 04/19/21 dose increase 09/17/21 fluticasone propionate 50 mcg/actuation spray,suspension 2 spray intranasal DAILY Qty: 9.9 5RF Rx Instructions: administer into each nostril (DME) nebulizer and compressor [Comp-Air Elite Comp Neb System] 1 EACH device 1 ea Miscellaneous q 4 h prn Qty: 1 ipratropium-albuterol 0.5 mg-3 mg(2.5 mg base)/3 mL solution for nebulization 3 ml inhalation QID PRN (Reason: wheezing) Qty: 90 3RF ezetimibe [Zetia] 10 mg tablet 10 mg PO DAILY Qty: 90 3RF acetaminophen 500 mg Tablet 1,000 mg PO PRN PRN DS: Data Vitals/I&O Vitals and I&O: Vital Signs Temperature 36.6 C 05/29/22 23:05 Temperature Source Tympanic 05/29/22 23:05 Pulse 51 L 05/29/22 23:05 Pulse Rhythm Regular 05/30/22 05:05 Respiratory Rate 18 05/29/22 23:05 Respiratory Effort Non-Labored 05/30/22 05:05 Respiratory Depth Normal 05/30/22 05:05 Respiratory Pattern Normal 05/30/22 05:05 Blood Pressure 110/70 05/29/22 23:05 Blood Pressure Position Supine 05/28/22 16:19 Pulse Oximetry 94 05/29/22 23:05 Oxygen Delivery Method Room Air 05/29/22 23:05 Oxygen Flow Rate 0 05/29/22 23:05 Pain Level 0 05/30/22 05:56 Intake & Output 05/29/22 05/30/22 05/30/22 18:59 06:59 18:59 Intake Total 1820.000 / 4342.917 2522.917 / 4342.917 Output Total 550 / 2900 2350 / 2900 Balance 1270.000 / 1442.917 172.917 / 1442.917 Intake: IV 1100.000 / 3222.917 2122.917 / 3222.917 Oral 720 / 1120 400 / 1120 Output: Urine 550 / 2900 2350 / 2900 Other: Urine Color Light Jody Pale Urine Appearance Clear Clear Urine Odor Normal None Comment 2 voids Voiding Methods Urinal Urinal Data Completed and Pending Labs on day of discharge: Labs from last 24 hours 05/30/22 06:03 Sodium 141 Potassium 3.9 Chloride 108 H Carbon Dioxide 25.7 Anion Gap 7.3 BUN 10 Creatinine 0.6 L Estimated GFR/1.73 m2 >= 60.00 Glucose 97 Calcium 8.5 Total Bilirubin 1.0 AST 24 ALT 19 Alkaline Phosphatase 82 Total Protein 5.7 L Albumin 2.8 L PFSH All Active Problems Abdominal pain (Acute) Leukocytosis (Acute) Skin ulcer (Acute) Acute pancreatitis (Acute) Acute cholecystitis (Acute) Below-knee amputation of right lower extremity (Acute) Chest pain at rest (Acute) RADIATION DOWN HIS ARMS Tobacco use (Acute) Medical History Acquired deformity of nail s/p nail excision and matrix ablation 11/10/19 Ankle pain right, chronic Ankle pain, left Anxiety Arthritis Arthritis FOOT/ANKLE 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 Asthma 09/15/12 Burning sensation of feet Callous ulcer REFERRED TO DERM 12/22/13 Constipation due to opioid therapy Curvature of spine S/P FIXATION WITH RODS Cyst of skin TOP OF LEFT FOOT-PAINFUL Deafness Depression with anxiety Fracture of distal phalanx of right index finger Snowblowing injury Ganglion cyst Gastritis GERD (gastroesophageal reflux disease) History of reduction of closed fracture Hyperglycemia Hyperlipidemia Hypoglycemia Insomnia Leg pain, right Lipoma Loss of taste Low back pain Low back pain associated with a spinal disorder other than radiculopathy or spinal stenosis Lung nodules Migraine Mood disorder deteriorated Neck pain Neuropathy Pain, foot, right, chronic Partial Achilles tendon tear left 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 Snowblowing injury causing partial amputation Surgical revision of amputation DOS: 08/31/18 Partial traumatic transphalangeal amputation of right ring finger Snowblowing injury causing partial amputation Surgical revision of amputation DOS: 08/31/18 Right ankle joint deformity Right leg numbness Scrotal lesion Sebaceous cyst Sensorineural hearing loss of both ears Sinus headache Sprain of unspecified ligament of left ankle, subsequent encounter (06/30/16) Testicular pain, right 11/10/12-COMES AND GOES tobacco abuse Viral warts Wart of hand Surgical History Excision, Skin Mass 2008-LUQ LIPOMA Fracture, Closed Treatment ANKLE History of back surgery History of excision of mass History of neck surgery History of spinal surgery History of surgical 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 reports putting hand in ophthalmic surgical assistant Hx of arthroscopic knee surgery Hx of right BKA 11/21/21 [facility] [place] NECK SURGERY 09/19-WITH METAL PLATE Open Carpal Tunnel release 204-RIGHT Postsurgical arthrodesis status (08/22/20) rt ankle Status post carpal tunnel release Tibial fracture S/P tibial nail fixation. Family History Father Alcohol abuse Essential hypertension Heart disease Neoplasm Stroke Mother Essential hypertension COPD (chronic obstructive pulmonary disease) Depression Hyperlipidemia Neoplasm Stroke Asthma [place] ADHD (attention deficit hyperactivity disorder) Sister No problems noted. Brother Essential hypertension Grandfather Diabetes Alcohol abuse Grandfather Brain tumor Stroke Grandmother Diabetes Grandmother Heart disease Neoplasm Cervical cancer Stroke Family History Blood disorder Neoplasm Stomach,melanoma Social History Smoking/Tobacco Use Status: Current every day Tobacco Type: cigarettes Tobacco: How many years used: 30 Second Hand Exposure: Yes Smoking risk assessment performed?: Yes Alcohol Intake: current Alcohol Intake frequency: a few times a month Alcohol type: beer Drug use: Never Substance use type: does not use Household members: spouse Housing: apartment Number of Children: 4 Communication Needs: Hard of Hearing Do you need help understanding health information?: Rarely Pets and animals: Yes Pets and animals: cat(s) and dog(s) Sexually active: No Do you think of yourself as: straight/heterosexual Current gender identity: female What is your relationship status?: How often do you talk on the phone with friends or family?: three or more times per week Do you belong to any clubs or organized social groups?: no Panel score (0-1 are the most socially isolated patients): 2 What type of physical activity do you participate in: walking, aerobic and swimming Duration: < 15 minutes/day Mariajose/Pentecostalism: No preference Special mariajose needs: No Seatbelt use: always Helmet use: No Drive intox or ride w/intox intermodal truck driver: No Do you feel safe at home: Yes Do you feel safe in your relationship?: Yes
[2022-05-30] MEDS: Budesonide/Formoterol 80/4.5 6.9 GM 60 PUFF INH IH (07:31)
--- NOTE | 2022-05-30 07:51 | DSE_ITS ---
Date of service: 05/30/22 Time of Service: 07:51 DS: Diagnosis Discharge Diagnosis (1) Abdominal pain: Status: Acute Discharge Plan Disposition Patient Disposition: HOME Condition: Stable Discharge Details Reason For Visit: Nausea and Vomiting and pancreatitis Admit Date/Time: 05/28/22 18:58 Admit Provider: Osiris Petersen Attending Provider: Osiris Petersen Primary Care Provider: Brian Longo Hospital Course Hospital Course: 46 y/o male admitted for further for abdominal pain, elevated lipase and CT scan which showed dilated biliary duct with recommendation of MRCP. MRCP was completed which showed question of pancreatic pseudocyst. Patient's symptoms of abdominal pain, nausea have resolved. He has tolerated a low fat diet. We discussed reasons for pancreatitis. He doesnt drink alcohol, his triglycerides were negative in the past. His Gallbladder, which we thought was the issue nwas normal. I reviewed his medications and none seem to have a side effect of pancreatitis Discussed small meals and low fat diet. Will D/C on zofran prn Consult to GI at [facility] will also be placed Home Meds and New Rx's Prescriptions: New ondansetron 4 mg tablet,disintegrating 4 mg PO Q6H PRNQty: 14 1RF Continued budesonide-formoterol [Symbicort] 80-4.5 mcg/actuation HFA aerosol inhaler 1 puff Inhalation BID Qty: 1 11RF albuterol sulfate [ProAir HFA] 90 mcg/actuation HFA aerosol inhaler 2 puff Inhalation Q6H PRN PRN (Reason: bronchospasm) Qty: 1 3RF atorvastatin 40 mg tablet 40 mg PO DAILY Qty: 90 3RF pantoprazole 40 mg tablet,delayed release (DR/EC) 40 mg PO BID Qty: 180 3RF Trulance 3 mg tablet 3 mg PO DAILY Qty: 90 3RF sertraline 100 mg tablet 200 mg PO DAILY Qty: 180 3RF Rx Instructions: dose increase 04/19/21 dose increase 09/17/21 fluticasone propionate 50 mcg/actuation spray,suspension 2 spray intranasal DAILY Qty: 9.9 5RF Rx Instructions: administer into each nostril (DME) nebulizer and compressor [Comp-Air Elite Comp Neb System] 1 EACH device 1 ea Miscellaneous q 4 h prn Qty: 1 ipratropium-albuterol 0.5 mg-3 mg(2.5 mg base)/3 mL solution for nebulization 3 ml inhalation QID PRN (Reason: wheezing) Qty: 90 3RF ezetimibe [Zetia] 10 mg tablet 10 mg PO DAILY Qty: 90 3RF acetaminophen 500 mg Tablet 1,000 mg PO PRN PRN Discharge Instructions Instructions: Pancreatitis (GEN), Low Fat Diet (GEN) Additional Instructions: Diet: 1. Avoid alcohol 2. Make sure to eat plenty of lean protein (meat, fish, eggs, cottage cheese, beans) 3. Eat a variety of fruits and vegetables. Eat plenty of high fiber foods to avoid constipation. 4. Drink plenty of liquids to stay hydrated and avoid constipation 5. Follow a low fat diet 6. Small meals often (5-6 small meals) Medication: 1. Zofran [address] one under the tongue every 6 hours as needed for nausea Referrals: A referral to Gastroenterology at [facility] has been placed. Please call our office if you have not heard from then in the next 10-14 days Please call our office if you develop: 1. Fevers >101.5 2. Nausea or Vomiting 3. Worsening pain 4. Redness and thick discharge from the wounds If after hours please call the Hospital at and ask to speak to the on-call surgeon Activity:: Activity as Tolerated Activity:: Activity as Tolerated Equipment/Supplies:: No Equipment Needed Diet:: low fat Discharge Orders Discharge Orders: Discharge Order (Routine); Ordered 05/30/22 Ordered By: Osiris Petersen DS: Summary Time Spent with Patient providing and/or coordinating discharge services: Greater than 30 minutes Status at Discharge Functional status at discharge: independent ambulation Overall status at discharge: patient is back to baseline Mental Status: mental status grossly normal Speech and Movement: speech and movement normal Mood: congruent mood Affect: normal affect Exam Psych Mental Status: mental status grossly normal Speech and Movement: speech and movement normal Mood: congruent mood Affect: normal affect DS: Data Vitals/I&O Vitals and I&O: Vital Signs Temperature 97.9 F 05/29/22 23:05 Temperature Source Tympanic 05/29/22 23:05 Pulse 51 L 05/29/22 23:05 Pulse Rhythm Regular 05/30/22 05:05 Respiratory Rate 18 05/29/22 23:05 Respiratory Effort Non-Labored 05/30/22 05:05 Respiratory Depth Normal 05/30/22 05:05 Respiratory Pattern Normal 05/30/22 05:05 Blood Pressure 110/70 05/29/22 23:05 Blood Pressure Position Supine 05/28/22 16:19 Pulse Oximetry 94 05/29/22 23:05 Oxygen Delivery Method Room Air 05/29/22 23:05 Oxygen Flow Rate 0 05/29/22 23:05 Pain Level 0 05/30/22 05:56 Intake & Output 05/29/22 05/29/22 05/30/22 11:59 23:59 11:59 Intake Total 1820.834 / 3940.834 2120.000 / 3940.834 1462.5 / 1462.5 Output Total 250 / 1800 1550 / 1800 1100 / 1100 Balance 1570.834 / 2140.834 570.000 / 2140.834 362.5 / 362.5 Intake: IV 1820.834 / 3220.834 1400.000 / 3220.834 1062.5 / 1062.5 Oral 720 / 720 400 / 400 Output: Urine 250 / 1800 1550 / 1800 1100 / 1100 Other: Urine Color Dark Jody Yellow Pale Urine Appearance Clear Cloudy Clear Urine Odor Strong Normal None Comment 2 voids Voiding Methods Urinal Toilet Urinal Data Completed and Pending Labs on day of discharge: Labs from last 24 hours 05/30/22 06:03 Sodium 141 Potassium 3.9 Chloride 108 H Carbon Dioxide 25.7 Anion Gap 7.3 BUN 10 Creatinine 0.6 L Estimated GFR/1.73 m2 >= 60.00 Glucose 97 Calcium 8.5 Total Bilirubin 1.0 AST 24 ALT 19 Alkaline Phosphatase 82 Total Protein 5.7 L Albumin 2.8 L PFSH All Active Problems Abdominal pain (Acute) Leukocytosis (Acute) Skin ulcer (Acute) Acute pancreatitis (Acute) Acute cholecystitis (Acute) Below-knee amputation of right lower extremity (Acute) Chest pain at rest (Acute) RADIATION DOWN HIS ARMS Tobacco use (Acute) Medical History Acquired deformity of nail s/p nail excision and matrix ablation 11/10/19 Ankle pain right, chronic Ankle pain, left Anxiety Arthritis Arthritis FOOT/ANKLE 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 Asthma 09/15/12 Burning sensation of feet Callous ulcer REFERRED TO DERM 12/22/13 Constipation due to opioid therapy Curvature of spine S/P FIXATION WITH RODS Cyst of skin TOP OF LEFT FOOT-PAINFUL Deafness Depression with anxiety Fracture of distal phalanx of right index finger Snowblowing injury Ganglion cyst Gastritis GERD (gastroesophageal reflux disease) History of reduction of closed fracture Hyperglycemia Hyperlipidemia Hypoglycemia Insomnia Leg pain, right Lipoma Loss of taste Low back pain Low back pain associated with a spinal disorder other than radiculopathy or spinal stenosis Lung nodules Migraine Mood disorder deteriorated Neck pain Neuropathy Pain, foot, right, chronic Partial Achilles tendon tear left 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 Snowblowing injury causing partial amputation Surgical revision of amputation DOS: 08/31/18 Partial traumatic transphalangeal amputation of right ring finger Snowblowing injury causing partial amputation Surgical revision of amputation DOS: 08/31/18 Right ankle joint deformity Right leg numbness Scrotal lesion Sebaceous cyst Sensorineural hearing loss of both ears Sinus headache Sprain of unspecified ligament of left ankle, subsequent encounter (06/30/16) Testicular pain, right 11/10/12-COMES AND GOES tobacco abuse Viral warts Wart of hand Surgical History Excision, Skin Mass 2008-LUQ LIPOMA Fracture, Closed Treatment ANKLE History of back surgery History of excision of mass History of neck surgery History of spinal surgery History of surgical 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 Family History Father Alcohol abuse Essential hypertension Heart disease Neoplasm Stroke Mother Essential hypertension COPD (chronic obstructive pulmonary disease) Depression Hyperlipidemia Neoplasm Stroke Asthma SIBLING ADHD (attention deficit hyperactivity disorder) Sister No problems noted. Brother Essential hypertension Grandfather Diabetes Alcohol abuse Grandfather Brain tumor Stroke Grandmother Diabetes Grandmother Heart disease Neoplasm Cervical cancer Stroke Family History Blood disorder Neoplasm Stomach,melanoma Social History Smoking/Tobacco Use Status: Current every day Tobacco Type: cigarettes Tobacco: How many years used: 30 Second Hand Exposure: Yes Smoking risk assessment performed?: Yes Alcohol Intake: current Alcohol Intake frequency: a few times a month Alcohol type: beer Drug use: Never Substance use type: does not use Household members: spouse Housing: apartment Number of Children: 4 Communication Needs: Hard of Hearing Do you need help understanding health information?: Rarely Pets and animals: Yes Pets and animals: cat(s) and dog(s) Sexually active: No Do you think of yourself as: straight/heterosexual Current gender identity: female What is your relationship status?: How often do you talk on the phone with friends or family?: three or more times per week Do you belong to any clubs or organized social groups?: no Panel score (0-1 are the most socially isolated patients): 2 What type of physical activity do you participate in: walking, aerobic and swimming Duration: < 15 minutes/day Mariajose/Druze: No preference Special mariajose needs: No Seatbelt use: always Helmet use: No Drive intox or ride w/intox recycling collections driver: No Do you feel safe at home: Yes Do you feel safe in your relationship?: Yes
[2022-05-30 07:56] VITALS: BP 118/49; PULSE 52; RESP 19; TEMP 35.7; O2SAT 96
[2022-05-30 08:10] LABS: Triglyceride 120 mg/dL (<150)
[2022-05-30] MEDS: Sertraline 100 MG TAB 200 MG PO (09:05)
[2022-05-30] MEDS: Normal Saline Flush 10 ML SYR IVP (09:05)
[2022-05-30] MEDS: Ezetimibe 10 MG TAB PO (09:05)
[2022-05-30] MEDS: Fluticasone NASAL SPRAY 16 GM BTL NS (09:06)
--- NOTE | 2022-05-30 10:20 | W.NUTCONSULT ---
Date of service: 05/30/22 Time of Service: 10:00 Nutritional Consult ASSESSMENT: Received consult for nutrition education re: fat restrcited diet 2/2 Dx of acute pancreatitis during current admission. NUTRITIONAL DIAGNOSIS: N/A INTERVENTION: Provided brief nutrition education prior to discharge today regarding fat restricted diet. Informed pt and daughter (present at the time of discharge) about a goal of aiming for 20-30g fat along with printed materials to take home which provide diet overview of sample items to include/avoid as well as 5 day sample menu. MONITORING AND EVALUATION: Pt/daughter seemed to have some difficulty with comprehension of some aspects of the education - in that they confused types of fats with amounts of fats as the priority. While this contract technical writer did confirm the the types of fats do matter, the amounts are a priority to avoid exacerbation of pancreatitis-associated pain. Outpatient nutrition educaiton appointment was offered and accepted. Will follow up in the outpt setting for more extensive nutrition education. Time Spent in Nutritional Counseling and Treatment: 10 minutes
--- NOTE | 2022-05-30 16:00 | CMDISCH_ITS ---
- If Service Date Differs Date of service: 05/30/22 Time of Service: 09:00 LACE Index Scoring Tool - Questions: Length of Stay (in days): 2 Acuity (Admit via E.D.?): Yes Comorbidities: Any Tumor E.D. Visits: 8 - Answers: Total Score: 11 Risk of Readmission: High Risk Care Management Discharge Reason for Hospitalization: Abdominal pain Discharge Plan: Cole is discharged home via private vehicle with family. New RX is transmitted to [facility]. A referral to [facility] was sent and they will call you to schedule an appointment. Patient/Family Education Needs: Review discharge instructions, limitations medications and plan to follow up with [facility]. Review ask me three.
--- NOTE | 2022-06-03 10:53 | W.PM.HP.N ---
Date of service: 05/30/22 Time of Service: 10:00 Assessment and Plan Assessment and plan (1) Acute pancreatitis: Status: Acute Assessment and plan: Cole is a 46-year-old male who comes in with another episode of acute pancreatitis. He is status postcholecystectomy for what what he thought was gallstone pancreatitis. His gallbladder was completely normal and there were no stones or sludge noted on pathology. I do not think that his pancreatitis is due to stones. We will check an MRCP in the morning just to make sure. If that is negative we will refer him down to GI at [facility] for further work-up. Triglycerides in the past have been negative. Will give the patient IV fluids, n.p.o. until after the MRCP. He will get some IV pain meds and nausea meds. History of Present Illness Narrative: Cole is a 46-year-old gentleman who underwent cholecystectomy a couple months ago for gallstone pancreatitis. His pathology revealed a normal gallbladder without stones. He comes in now with another episode of acute pancreatitis. I am not sure that this is due to stones or whether his pancreatitis was ever due to stones. Because he just had surgery I will admit him for hydration, pain control and order an MRCP for the morning. 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 Asthma 09/15/12 Burning sensation of feet Callous ulcer REFERRED TO DERM 12/22/13 Constipation due to opioid therapy Curvature of spine S/P FIXATION WITH RODS Cyst of skin TOP OF LEFT FOOT-PAINFUL Deafness Depression with anxiety Fracture of distal phalanx of right index finger Snowblowing injury Ganglion cyst Gastritis GERD (gastroesophageal reflux disease) History of reduction of closed fracture Hyperglycemia Hyperlipidemia Hypoglycemia Insomnia Leg pain, right Lipoma Loss of taste Low back pain Low back pain associated with a spinal disorder other than radiculopathy or spinal stenosis Lung nodules Migraine Mood disorder deteriorated Neck pain Neuropathy Pain, foot, right, chronic Partial Achilles tendon tear left 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 Snowblowing injury causing partial amputation Surgical revision of amputation DOS: 08/31/18 Partial traumatic transphalangeal amputation of right ring finger Snowblowing injury causing partial amputation Surgical revision of amputation DOS: 08/31/18 Right ankle joint deformity Right leg numbness Scrotal lesion Sebaceous cyst Sensorineural hearing loss of both ears Sinus headache Sprain of unspecified ligament of left ankle, subsequent encounter (06/30/16) Testicular pain, right 11/10/12-COMES AND GOES tobacco abuse Viral warts Wart of hand Surgical History Excision, Skin Mass 2008-LUQ LIPOMA Fracture, Closed Treatment ANKLE History of back surgery History of excision of mass History of neck surgery History of spinal surgery History of surgical 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 Family History Father Alcohol abuse Essential hypertension Heart disease Neoplasm Stroke Mother Essential hypertension COPD (chronic obstructive pulmonary disease) Depression Hyperlipidemia Neoplasm Stroke Asthma SIBLING ADHD (attention deficit hyperactivity disorder) Sister No problems noted. Brother Essential hypertension Grandfather Diabetes Alcohol abuse Grandfather Brain tumor Stroke Grandmother Diabetes Grandmother Heart disease Neoplasm Cervical cancer Stroke Family History Blood disorder Neoplasm Stomach,melanoma Social History Smoking/Tobacco Use Status: Current every day Tobacco Type: cigarettes Tobacco: How many years used: 30 Second Hand Exposure: Yes Smoking risk assessment performed?: Yes Alcohol Intake: current Alcohol Intake frequency: a few times a month Alcohol type: beer Drug use: Never Substance use type: does not use Household members: spouse Housing: apartment Number of Children: 4 Communication Needs: Hard of Hearing Do you need help understanding health information?: Rarely Pets and animals: Yes Pets and animals: cat(s) and dog(s) Sexually active: No Do you think of yourself as: straight/heterosexual Current gender identity: female What is your relationship status?: How often do you talk on the phone with friends or family?: three or more times per week Do you belong to any clubs or organized social groups?: no Panel score (0-1 are the most socially isolated patients): 2 What type of physical activity do you participate in: walking, aerobic and swimming Duration: < 15 minutes/day Mariajose/Pentecostalism: No preference Special mariajose needs: No Seatbelt use: always Helmet use: No Drive intox or ride w/intox bus driver supervisor: No Do you feel safe at home: Yes Do you feel safe in your relationship?: Yes Meds Allergies and Home Medications Allergies Allergy/AdvReac Type Severity Reaction Status Date / Time Fish Containing Products Allergy Intermediate hives Verified 05/28/22 16:22 aspirin AdvReac Intermediate epistaxis Verified 05/28/22 16:22 seafood Allergy Intermediate Hives Uncoded 05/28/22 16:22 hydrocodone-homatropine AdvReac Intermediate GI UPSET Uncoded 05/28/22 16:22 Home Medications Medication Instructions Recorded Confirmed Type nebulizer and compressor (Comp-Air #1 ea 07/16/16 05/28/22 History Elite Comp Neb System device) atorvastatin 40 mg tablet 40 mg PO DAILY #90 tab-caps 09/17/21 05/28/22 Rx pantoprazole 40 mg tablet,delayed 40 mg PO BID #180 tab-caps 09/17/21 05/28/22 Rx release sertraline 100 mg tablet 200 mg PO DAILY #180 tabs 09/17/21 05/28/22 Rx fluticasone propionate 50 2 spray intranasal DAILY #9.9 grams 11/13/21 05/28/22 Rx mcg/actuation nasal spray,suspension acetaminophen 500 mg tablet 1,000 mg PO PRN PRN 11/23/21 05/28/22 History ipratropium 0.5 mg-albuterol 3 mg 3 ml inhalation QID PRN wheezing 12/05/21 05/28/22 Rx (2.5 mg base)/3 mL nebulization #90 mL soln ezetimibe 10 mg tablet (Zetia) 10 mg PO DAILY #90 tab-caps 12/23/21 05/28/22 Rx albuterol sulfate 90 mcg/actuation 2 puff inhalation Q6H PRN PRN 01/24/22 05/28/22 Rx aerosol inhaler (ProAir HFA) bronchospasm #1 inh budesonide-formoterol HFA 80 1 puff inhalation BID ##1 01/24/22 05/28/22 Rx mcg-4.5 mcg/actuation aerosol inhaler (Symbicort) ondansetron 4 mg disintegrating 4 mg PO Q6H PRN #14 tabs 05/30/22 Rx tablet plecanatide 3 mg tablet (Trulance) 3 mg PO DAILY constipation #90 tabs 05/31/22 Rx Exam HENMT Head: normocephalic and atraumatic Resp Effort & Inspection: normal respiratory effort Cardio Rate: regular rate Rhythm: regular rhythm GI Palpation: soft, no hepatosplenomegaly and tender periumbilically; with no rebound tenderness Auscultation: normal bowel sounds Results Labs Result diagrams: 05/29/22 06:10 05/30/22 06:03 Last Vital Signs Temp 96.3 F L 05/30/22 07:56 Pulse 52 L 05/30/22 07:56 Resp 19 05/30/22 07:56 BP 118/49 L 05/30/22 07:56 Pulse Ox 96 05/30/22 07:56
== END 2022-05-30 09:28 | disposition home or self-care (01) ==
LOC: ER 19:30 → MS 20:32
PROVIDERS: Surgery; Admitting Provider Surgery; Emergency Provider Physician Assistant; PCP Family Medicine; Visit Provider Surgery
DX: K85.90 Acute pancreatitis without necrosis or infection, unspecified (principal); D72.829 Elevated white blood cell count, unspecified; R11.2 Nausea with vomiting, unspecified; R19.7 Diarrhea, unspecified; Z89.511 Acquired absence of right leg below knee; F17.210 Nicotine dependence, cigarettes, uncomplicated; R07.89 Other chest pain; F41.9 Anxiety disorder, unspecified; J45.909 Unspecified asthma, uncomplicated; F41.8 Other specified anxiety disorders; K21.9 Gastro-esophageal reflux disease without esophagitis; G47.00 Insomnia, unspecified; M54.50 Low back pain, unspecified; R91.8 Other nonspecific abnormal finding of lung field; G43.909 Migraine, unspecified, not intractable, without status migrainosus; G62.9 Polyneuropathy, unspecified; H90.3 Sensorineural hearing loss, bilateral; J98.11 Atelectasis; Z20.822 Contact with and (suspected) exposure to COVID-19
CPT/HCPCS: 36415; 80053; 83690; 87635; 94640; 96361; 96365; 96366; 96372; 96374; 96375; 96376; 99284; 99285; J1650; 74181; 81003; 81015; 84478; 85025; G0378; J0131; J1885; J2270; J2405

== ENCOUNTER 2022-07-09 15:05 | Emergency (ER) | payer MEDICARE, MEDICAID, SELFPAY ==
[2022-07-09 15:11] VITALS: BP 109/61; PULSE 70; RESP 18; TEMP 36; O2SAT 98
[2022-07-09] MEDS: Normal Saline 1,000 ML 1000 ML IV (16:19)
[2022-07-09 16:21] LABS: Abs Immature Grans 0.03 10^3/uL (0.0-0.06); Absolute Basophil Count 0.01 10^3/uL (0.0-0.2); Absolute Eosinophil Count 0.09 10^3/uL (0.0-0.7); Absolute Monocyte Count 0.55 10^3/uL (0.1-0.8); Absolute Neutrophil Count 5.01 10^3/uL (1.2-6.7); Basophils % 0.1; Eosinophils % 0.9; HCT 46.9 % (40.0-50.0); HGB 15.2 g/dL (13.5-17.5); Immature Grans % 0.3; MCH 27.6 pg (27.0-33.0); MCHC 32.4 % (32.0-36.0); MCV 85 fL (80-95); MPV 9.3 fL (8.0-11.0); Monocytes % 5.8; Neutrophils % 52.9; Platelet Count 218 10^3/uL (130-400); RBC 5.51 10^6/uL (4.36-5.78); RDW-SD 46.9 fL; WBC 9.49 10^3/uL (4.4-10.8)
[2022-07-09 16:33] LABS: ALT 32 U/L (16-63); AST 20 U/L (15-37); Albumin 3.7 g/dL (3.4-5.0); Alkaline Phosphatase 110 U/L (46-116); Anion Gap 5.4 mmol/L (3-11); BUN 5 mg/dL (7-18); Bilirubin, Total 0.6 mg/dL (0.2-1.0); CO2 31.6 mmol/L (21.0-32.0); CREATININE 0.8 mg/dL (0.70-1.30); Calcium 9.2 mg/dL (8.5-10.1); Chloride 101 mmol/L (98-107); Estimated GFR 108.49 (mL/min/1.73m2); Glucose 103 mg/dL (74-106); Lipase 711 U/L (73-393); Potassium 4.2 mmol/L (3.5-5.1); Sodium 138 mmol/L (136-145); Total Protein 7.3 g/dL (6.4-8.2)
[2022-07-09 16:37] LABS: Bilirubin Negative (Negative); Blood Negative (Negative); Clarity Clear (Clear); Glucose Negative (Negative); Ketones Negative (Negative); Leukocyte Esterase Negative (Negative); Nitrite Negative (Negative); Urobilinogen 0.2 EU/dL (Up TO 0.2)
[2022-07-09 16:45] LABS: ETHANOL BLOOD < 3.0 mg/dL (<10)
[2022-07-09] MEDS: MORPHine 4 MG/ML SYR IVP (17:18)
[2022-07-09] MEDS: Ondansetron 4 MG/2 ML VIAL IVP (17:19)
--- NOTE | 2022-07-09 17:41 | W.ED.GENAD ---
Discharge Plan Disposition Patient Disposition: HOME Discharge Details Clinical Impression: Acute pancreatitis Primary Care Provider: Brian Longo ED Provider: Ra Oquendo Home Meds and New Rx's Prescriptions: New ondansetron 4 mg tablet,disintegrating 4 mg PO TID PRN3 Days Qty: 9 0RF oxycodone-acetaminophen [Percocet] 5-325 mg tablet 1 tab PO Q8H PRNQty: 8 0RF Continued budesonide-formoterol [Symbicort] 80-4.5 mcg/actuation HFA aerosol inhaler 1 puff Inhalation BID Qty: 1 11RF albuterol sulfate [ProAir HFA] 90 mcg/actuation HFA aerosol inhaler 2 puff Inhalation Q6H PRN PRN (Reason: bronchospasm) Qty: 1 3RF atorvastatin 40 mg tablet 40 mg PO DAILY Qty: 90 3RF pantoprazole 40 mg tablet,delayed release (DR/EC) 40 mg PO BID Qty: 180 3RF sertraline 100 mg tablet 200 mg PO DAILY Qty: 180 3RF Rx Instructions: dose increase 04/19/21 dose increase 09/17/21 fluticasone propionate 50 mcg/actuation spray,suspension 2 spray intranasal DAILY Qty: 9.9 5RF Rx Instructions: administer into each nostril (DME) nebulizer and compressor [Comp-Air Elite MemSQL Neb System] 1 EACH device 1 ea Miscellaneous q 4 h prn Qty: 1 ipratropium-albuterol 0.5 mg-3 mg(2.5 mg base)/3 mL solution for nebulization 3 ml inhalation QID PRN (Reason: wheezing) Qty: 90 3RF ezetimibe [Zetia] 10 mg tablet 10 mg PO DAILY Qty: 90 3RF Trulance 3 mg tablet 3 mg PO DAILY Qty: 90 3RF Creon 12,000-38,000 -60,000 unit capsule,delayed release(DR/EC) 1 cap PO BID Qty: 60 2RF Rx Instructions: administer with meals and/or snacks acetaminophen 500 mg Tablet 1,000 mg PO PRN PRN ondansetron 4 mg tablet,disintegrating 4 mg PO Q6H PRNQty: 14 1RF Discharge Instructions Instructions: Pancreatitis (ED) Additional Instructions: Laboratory values revealed mild pancreatitis, you do not require admission at this time. Percocet and Zofran as directed, regular Percocet may cause drowsiness and/or constipation. You may want to consider [id number] stool softener while taking this medication. Clear liquid diet, advance as tolerated. Please watch for new or worsening symptoms and return to the ER for any concerns. Lastly, please contact your primary care provider tomorrow to discuss your ER visit ongoing symptoms and need for outpatient reevaluation. Please follow-up at [facility] on July 28 as already scheduled for your testing. Medical Decision Making This is a 47-year-old gentleman, current smoker but denies alcohol abuse, presents for what he believes to be recurrent pancreatitis. He reports abdominal bloating, nausea, vomiting, diarrhea over the past week and feels very similar but not quite as severe as his previous episodes. He was seen at the urgent care and subsequently sent to the ER. He denies fever or recent trauma. Denies black tarry stools or bright red blood in the stools. He is scheduled for advanced imaging at [facility] on July 28 to further evaluate his ongoing recurrent pancreatitis. Clinically he appears well, nontoxic. Plan is to obtain IV access, give IV fluid, Zofran, morphine and reassess after his laboratory values have resulted. Laboratory values do not reveal any obvious emergent process. No evidence of leukocytosis or anemia. His platelet count is 218. Electrolytes unremarkable creatinine 0.8 with a GFR of 108.49 total bili 0.6 AST 20 ALT 32 alk phosphatase 110 albumin 3.7. Lipase of 711. Urinalysis unremarkable alcohol less than 3 Laboratory values did reveal the patient is in what appears to be mild pancreatitis. No active vomiting under my care. Upon reevaluation he reports significant improvement of his symptoms. He is comfortable discharge at this time I do not believe he will require admission. Standard discharge and return precautions were provided. Patient understands, is agreeable to this plan, and has no additional questions or concerns upon discharge. This documentation was generated using [employer]ation system, please disregard any oddities of phrase or misspellings. Medical Records Medical records reviewed: Yes I reviewed the patient's medical records. Lab Data Lab results reviewed: Yes I reviewed the patient's lab results. Labs: Laboratory Tests Range/Units 07/09/22 07/09/22 07/09/22 16:12 16:12 16:15 WBC (4.4-10.8) 10^3/uL 9.49 RBC (4.36-5.78) 10^6/uL 5.51 Hgb (13.5-17.5) g/dL 15.2 Hct (40.0-50.0) % 46.9 MCV (80-95) fL 85 MCH (27.0-33.0) pg 27.6 MCHC (32.0-36.0) % 32.4 RDW (11.8-14.1) % 15.0 H Plt Count (130-400) 10^3/uL 218 MPV (8.0-11.0) fL 9.3 Immature Gran % 0.3 Neutrophils % 52.9 Lymphocytes % 40.0 Monocytes % 5.8 Eosinophils % 0.9 Basophils % 0.1 Nucleated RBC % (0.0-0.3) % 0.0 Absolute Neutrophils (1.2-6.7) 10^3/uL 5.01 Absolute Lymphocytes (1.2-3.4) 10^3/uL 3.80 H Absolute Monocytes (0.1-0.8) 10^3/uL 0.55 Absolute Eosinophils (0.0-0.7) 10^3/uL 0.09 Absolute Basophils (0.0-0.2) 10^3/uL 0.01 Sodium (136-145) mmol/L 138 Potassium (3.5-5.1) mmol/L 4.2 Chloride (98-107) mmol/L 101 Carbon Dioxide (21.0-32.0) mmol/L 31.6 Anion Gap (3-11) mmol/L 5.4 BUN (7-18) mg/dL 5 L Creatinine (0.70-1.30) mg/dL 0.8 Est GFR (CKD-EPI 2020) (mL/min/1.73m2) 108.49 Glucose (74-106) mg/dL 103 Calcium (8.5-10.1) mg/dL 9.2 Total Bilirubin (0.2-1.0) mg/dL 0.6 AST (15-37) U/L 20 ALT (16-63) U/L 32 Alkaline Phosphatase (46-116) U/L 110 Total Protein (6.4-8.2) g/dL 7.3 Albumin (3.4-5.0) g/dL 3.7 Lipase (73-393) U/L 711 H Urine Color (Yellow) Yellow Urine Clarity (Clear) Clear Urine pH (5-8) 6.0 Ur Specific [place] (1.005-1.025) 1.010 Urine Protein (Negative) mg/dL Negative Urine Ketones (Negative) mg/dL Negative Urine Blood (Negative) Negative Urine Nitrite (Negative) Negative Urine Bilirubin (Negative) Negative Urine Urobilinogen (Up TO 0.2) EU/dL 0.2 Ur Leukocyte Esterase (Negative) Negative Urine Glucose (Negative) mg/dL Negative Ethyl Alcohol (<10) mg/dL < 3.0 HPI General Date/Time Provider Initiated Documentation: 07/09/22 15:38. History of Present Illness 47 year old M presents to the emergency department with the chief complaint of Pancreatitis, described as moderate, with intensity rated at 5. Quality is described as sharp and other (Bloating), and is localized to the abdomen. Patient reports no radiation. Patient started experiencing this day(s) (5) and it has been constant. No relieving factors improve symptom(s), No exacerbating factors reported . Patient notes nausea/vomiting and other (Diarrhea). Patient did receive the following treatments prior to arrival, none Related Data Home Medications Medication Instructions Recorded Confirmed nebulizer and compressor (Comp-Air #1 ea 07/16/16 07/09/22 Elite Comp Neb System device) atorvastatin 40 mg tablet 40 mg PO DAILY #90 tab-caps 09/17/21 07/09/22 pantoprazole 40 mg tablet,delayed 40 mg PO BID #180 tab-caps 09/17/21 07/09/22 release sertraline 100 mg tablet 200 mg PO DAILY #180 tabs 09/17/21 07/09/22 fluticasone propionate 50 2 spray intranasal DAILY #9.9 grams 11/13/21 07/09/22 mcg/actuation nasal spray,suspension acetaminophen 500 mg tablet 1,000 mg PO PRN PRN 11/23/21 07/09/22 ipratropium 0.5 mg-albuterol 3 mg 3 ml inhalation QID PRN wheezing 12/05/21 07/09/22 (2.5 mg base)/3 mL nebulization #90 mL soln ezetimibe 10 mg tablet (Zetia) 10 mg PO DAILY #90 tab-caps 12/23/21 07/09/22 albuterol sulfate 90 mcg/actuation 2 puff inhalation Q6H PRN PRN 01/24/22 07/09/22 aerosol inhaler (ProAir HFA) bronchospasm #1 inh budesonide-formoterol HFA 80 1 puff inhalation BID ##1 01/24/22 07/09/22 mcg-4.5 mcg/actuation aerosol inhaler (Symbicort) ondansetron 4 mg disintegrating 4 mg PO Q6H PRN #14 tabs 05/30/22 07/09/22 tablet plecanatide 3 mg tablet (Trulance) 3 mg PO DAILY constipation #90 tabs 05/31/22 07/09/22 [id number]-[id number]-[id number] 1 cap PO BID #60 caps 06/10/22 07/09/22 12,000-38,000-60,000 unit capsule,delayed rel (Creon) ondansetron 4 mg disintegrating 4 mg PO TID PRN 3 days #9 tabs 07/09/22 tablet oxycodone-acetaminophen 5 mg-325 1 tab PO Q8H PRN #8 tabs 07/09/22 mg tablet (Percocet) Previous Rx's Medication Instructions Recorded atorvastatin 40 mg tablet 40 mg PO DAILY #90 tab-caps 09/17/21 pantoprazole 40 mg tablet,delayed 40 mg PO BID #180 tab-caps 09/17/21 release sertraline 100 mg tablet 200 mg PO DAILY #180 tabs 09/17/21 fluticasone propionate 50 2 spray intranasal DAILY #9.9 grams 11/13/21 mcg/actuation nasal spray,suspension ipratropium 0.5 mg-albuterol 3 mg 3 ml inhalation QID PRN wheezing 12/05/21 (2.5 mg base)/3 mL nebulization #90 mL soln ezetimibe 10 mg tablet (Zetia) 10 mg PO DAILY #90 tab-caps 12/23/21 albuterol sulfate 90 mcg/actuation 2 puff inhalation Q6H PRN PRN 01/24/22 aerosol inhaler (ProAir HFA) bronchospasm #1 inh budesonide-formoterol HFA 80 1 puff inhalation BID ##1 01/24/22 mcg-4.5 mcg/actuation aerosol inhaler (Symbicort) ondansetron 4 mg disintegrating 4 mg PO Q6H PRN #14 tabs 05/30/22 tablet plecanatide 3 mg tablet (Trulance) 3 mg PO DAILY constipation #90 tabs 05/31/22 [id number] 1 cap PO BID #60 caps 06/10/22 12,000-38,000-60,000 unit capsule,delayed rel (Creon) ondansetron 4 mg disintegrating 4 mg PO TID PRN 3 days #9 tabs 07/09/22 tablet oxycodone-acetaminophen 5 mg-325 1 tab PO Q8H PRN #8 tabs 07/09/22 mg tablet (Percocet) Allergies Allergy/AdvReac Type Severity Reaction Status Date / Time Fish Containing Products Allergy Intermediate hives Verified 07/09/22 15:15 aspirin AdvReac Intermediate epistaxis Verified 07/09/22 15:15 seafood Allergy Intermediate Hives Uncoded 07/09/22 15:15 hydrocodone-homatropine AdvReac Intermediate GI UPSET Uncoded 07/09/22 15:15 General Stated Complaint: Abd Prob DONG: 3 Review of Systems Constitutional Constitutional: Denies fever(s) and Denies weakness Cardiovascular Cardiovascular: Denies chest pain and Denies dyspnea Respiratory Respiratory: Denies dyspnea Gastrointestinal Gastrointestinal: Reports abdominal pain, Denies melena, Denies hematochezia, Reports diarrhea, Reports nausea and Reports vomiting Genitourinary Genitourinary: Denies dysuria Musculoskeletal Musculoskeletal: Denies back pain Integumentary/Breasts Skin/Breast: Denies rash Neurologic Neurologic: Denies weakness PFSH All Active Problems Sensorineural hearing loss (SNHL) of both ears (Acute) S/P BKA (below knee amputation) (Acute) Pancreatic pseudocyst (Acute) Skin ulcer (Acute) Acute pancreatitis (Acute) Acute cholecystitis (Acute) Below-knee amputation of right lower extremity (Acute) Chest pain at rest (Acute) RADIATION DOWN HIS ARMS Tobacco use (Acute) Medical History Acquired deformity of nail s/p nail excision and matrix ablation 11/10/19 Ankle pain right, chronic Ankle pain, left Anxiety Arthritis Arthritis FOOT/ANKLE 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 Asthma 09/15/12 Burning sensation of feet Callous ulcer REFERRED TO DERM 12/22/13 Constipation due to opioid therapy Curvature of spine S/P FIXATION WITH RODS Cyst of skin TOP OF LEFT FOOT-PAINFUL Deafness Depression with anxiety Fracture of distal phalanx of right index finger Snowblowing injury Ganglion cyst Gastritis GERD (gastroesophageal reflux disease) History of reduction of closed fracture Hyperglycemia Hyperlipidemia Hypoglycemia Insomnia Leg pain, right Lipoma Loss of taste Low back pain Low back pain associated with a spinal disorder other than radiculopathy or spinal stenosis Lung nodules Migraine Mood disorder deteriorated Neck pain Neuropathy Pain, foot, right, chronic Partial Achilles tendon tear left 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 Snowblowing injury causing partial amputation Surgical revision of amputation DOS: 08/31/18 Partial traumatic transphalangeal amputation of right ring finger Snowblowing injury causing partial amputation Surgical revision of amputation DOS: 08/31/18 Right ankle joint deformity Right leg numbness Scrotal lesion Sebaceous cyst Sensorineural hearing loss of both ears Sinus headache Sprain of unspecified ligament of left ankle, subsequent encounter (06/30/16) Testicular pain, right 11/10/12-COMES AND GOES tobacco abuse Viral warts Wart of hand Surgical History Excision, Skin Mass 2008-LUQ LIPOMA Fracture, Closed Treatment ANKLE History of back surgery History of excision of mass History of neck surgery History of spinal surgery History of surgical 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 Family History Father Alcohol abuse Essential hypertension Heart disease Neoplasm Stroke Mother Essential hypertension COPD (chronic obstructive pulmonary disease) Depression Hyperlipidemia Neoplasm Stroke Asthma SIBLING ADHD (attention deficit hyperactivity disorder) Sister No problems noted. Brother Essential hypertension Grandfather Diabetes Alcohol abuse Grandfather Brain tumor Stroke Grandmother Diabetes Grandmother Heart disease Neoplasm Cervical cancer Stroke Family History Blood disorder Neoplasm Stomach,melanoma Social History Smoking/Tobacco Use Status: Current every day Tobacco Type: cigarettes Tobacco: How many years used: 30 Second Hand Exposure: Yes Smoking risk assessment performed?: Yes Alcohol Intake: current Alcohol Intake frequency: a few times a month Alcohol type: beer Drug use: Never Substance use type: does not use Household members: spouse Housing: apartment Number of Children: 4 Communication Needs: Hard of Hearing Do you need help understanding health information?: Rarely Pets and animals: Yes Pets and animals: cat(s) and dog(s) Sexually active: No Do you think of yourself as: straight/heterosexual Current gender identity: female What is your relationship status?: How often do you talk on the phone with friends or family?: three or more times per week Do you belong to any clubs or organized social groups?: no Panel score (0-1 are the most socially isolated patients): 2 What type of physical activity do you participate in: walking, aerobic and swimming Duration: < 15 minutes/day Mariajose/Holiness: No preference Special mariajose needs: No Seatbelt use: always Helmet use: No Drive intox or ride w/intox stacker driver: No Do you feel safe at home: Yes Do you feel safe in your relationship?: Yes Exam Const General: cooperative, healthy appearing, comfortable and no acute distress Orientation: alert and awake HENMT Head: normal to inspection, normocephalic and atraumatic Face and sinus: normal facial exam Mouth: moist mucous membranes Eyes Conjunctivae: conjunctivae normal Neck Neck: normal visual inspection, full ROM, trachea midline and supple Resp Effort & Inspection: normal respiratory effort and able to speak in complete sentences Auscultation: clear to auscultation bilaterally Cardio Rate: regular rate Rhythm: regular rhythm GI Inspection: normal to inspection Palpation: soft, not firm, no guarding, no pulsatile masses and tender in the epigastrum and in the LUQ; not at McBurney's point, Bose's sign negative and with no rebound tenderness Auscultation: normal bowel sounds Back/Spine/Pelvis Back: No back tenderness Skin General skin exam: no rashes or lesions noted Neuro General: patient alert, patient awake, moves all extremities and no focal motor deficits Cognition: normal cognition Speech: speech normal Sensory Exam: no sensory deficits noted Psych Appearance: grossly normal Mental Status: mental status grossly normal Course Vital Signs Vital signs: Vital Signs Temperature 36.0 C L 07/09/22 15:11 Pulse 70 07/09/22 15:11 Respiratory Rate 18 07/09/22 15:11 Blood Pressure 109/61 07/09/22 15:11 Pulse Oximetry 98 07/09/22 15:11 Temperature 36.0 C L 07/09/22 15:11 Temperature Source Tympanic 07/09/22 15:11 Pulse 70 07/09/22 15:11 Respiratory Rate 18 07/09/22 15:11 Respiratory Effort Non-Labored 07/09/22 15:13 Blood Pressure 109/61 07/09/22 15:11 Blood Pressure Position Sitting 07/09/22 15:11 Pulse Oximetry 98 07/09/22 15:11 Pain Level 4 07/09/22 17:18 Lab/Test Results Lab/Test Results: Laboratory Tests Range/Units 07/09/22 07/09/22 07/09/22 16:12 16:12 16:15 WBC (4.4-10.8) 10^3/uL 9.49 RBC (4.36-5.78) 10^6/uL 5.51 Hgb (13.5-17.5) g/dL 15.2 Hct (40.0-50.0) % 46.9 MCV (80-95) fL 85 MCH (27.0-33.0) pg 27.6 MCHC (32.0-36.0) % 32.4 RDW (11.8-14.1) % 15.0 H Plt Count (130-400) 10^3/uL 218 MPV (8.0-11.0) fL 9.3 Immature Gran % 0.3 Neutrophils % 52.9 Lymphocytes % 40.0 Monocytes % 5.8 Eosinophils % 0.9 Basophils % 0.1 Nucleated RBC % (0.0-0.3) % 0.0 Absolute Neutrophils (1.2-6.7) 10^3/uL 5.01 Absolute Lymphocytes (1.2-3.4) 10^3/uL 3.80 H Absolute Monocytes (0.1-0.8) 10^3/uL 0.55 Absolute Eosinophils (0.0-0.7) 10^3/uL 0.09 Absolute Basophils (0.0-0.2) 10^3/uL 0.01 Sodium (136-145) mmol/L 138 Potassium (3.5-5.1) mmol/L 4.2 Chloride (98-107) mmol/L 101 Carbon Dioxide (21.0-32.0) mmol/L 31.6 Anion Gap (3-11) mmol/L 5.4 BUN (7-18) mg/dL 5 L Creatinine (0.70-1.30) mg/dL 0.8 Est GFR (CKD-EPI 2020) (mL/min/1.73m2) 108.49 Glucose (74-106) mg/dL 103 Calcium (8.5-10.1) mg/dL 9.2 Total Bilirubin (0.2-1.0) mg/dL 0.6 AST (15-37) U/L 20 ALT (16-63) U/L 32 Alkaline Phosphatase (46-116) U/L 110 Total Protein (6.4-8.2) g/dL 7.3 Albumin (3.4-5.0) g/dL 3.7 Lipase (73-393) U/L 711 H Urine Color (Yellow) Yellow Urine Clarity (Clear) Clear Urine pH (5-8) 6.0 Ur Specific [place] (1.005-1.025) 1.010 Urine Protein (Negative) mg/dL Negative Urine Ketones (Negative) mg/dL Negative Urine Blood (Negative) Negative Urine Nitrite (Negative) Negative Urine Bilirubin (Negative) Negative Urine Urobilinogen (Up TO 0.2) EU/dL 0.2 Ur Leukocyte Esterase (Negative) Negative Urine Glucose (Negative) mg/dL Negative Ethyl Alcohol (<10) mg/dL < 3.0
[2022-07-09 18:04] VITALS: PULSE 67; RESP 16; TEMP 36.6; O2SAT 97
== END 2022-07-09 18:08 | disposition home or self-care (01) ==
PROVIDERS: Emergency Provider Physician Assistant; PCP Family Medicine
DX: K85.90 Acute pancreatitis without necrosis or infection, unspecified (principal)
CPT/HCPCS: 36415; 80053; 83690; 96361; 96374; 96375; 99284; 80320; 81003; 85025; J2270; J2405

== ENCOUNTER 2022-07-12 22:24 | Observation (INO) | payer MEDICARE, MEDICAID, SELFPAY ==
--- NOTE | 2022-07-12 22:30 | RT.EKG_ITS ---
APPROVED REPORT Exam: Resting ECG Reason for Exam: chest pain Patient Location: E HR:73 bpm ECG Measurements Heart Rate 73 AXIS MI 138 P 42 QRSd 87 QRS -16 QT 395 T 44 QTc 435 Conclusion Sinus rhythm...normal P axis, V-rate 60- 99
[2022-07-12 22:38] VITALS: BP 94/66; PULSE 73; RESP 27; O2SAT 94
[2022-07-12 22:42] VITALS: RESP 24
--- NOTE | 2022-07-12 22:45 | DI.CT_ITS ---
Exam(s) CT CHEST PE ABD PELVIS W EXAM: CT CHEST PE ABD PELVIS W CLINICAL HISTORY: chest and abdominal pain TECHNIQUE: CT examination of the chest, abdomen, and pelvis was performed with intravenous infusion of 100 cc of Omnipaque 350. COMPARISON: CT CT ABDOMEN PELVIS WO from 02/20/2022 MR MR ABDOMEN WO from 02/21/[address] ABDOMEN PELVIS W from 05/27/2022 FINDINGS: The lungs are predominantly clear with some apparent chronic interstitial changes.. There is no pleural effusion seen. There is no mediastinal or hilar adenopathy. Pulmonary arteries are unremarkable with no evidence of pulmonary embolic disease. Thoracic aorta and major branches appear intact with no evidence of aneurysm or dissection. No bony abnormality seen in the thorax. The liver is normal appearance. Gallbladder has been surgically removed, bile ducts are CT normal. No abnormality seen involving the spleen. Pancreas shows septated cystic lesion of the pancreatic head, grossly unchanged from examination of A ugust but new since prior CT and MRI of February 20, this is likely postinflammatory given the appear ance of the recent prior examinations, appropriate follow-up studies recommended.. The adrenals are unremarkable in appearance. The kidneys appear intact with no evidence of hydroneph rosis or nephrolithiasis. Abdominal aorta and major visceral branches appear intact. No significant abdominal wall hernia seen. No significant abdominal or pelvic adenopathy. No focal bowel pathology. No evidence of appendicitis or diverticulitis. IMPRESSION: No evidence of acute process. Probable postinflammatory cystic changes in the pancreatic head, appro priate follow-up imaging suggested.. RADIATION DOSE DELIVERED: 1,355.98mGy.cm Total DLP 1,355.98mGy.cm Total DLP !Error CTDIvol DATA REPOSITORY: All CT scans at this facility are submitted to the National Radiology Data Registry (NRDR) Dose Index Registry (DIR) with the [employer] (ACR). RADIATION OPTIMIZATION: All CT scans at this facility use at least one of these dose optimization te chniques: automated exposure control; mA and/or kV adjustment per patient size (includes targeted exa ms where dose is matched to clinical indication); or iterative reconstruction.
--- NOTE | 2022-07-12 22:53 | ED.GENADUL_ITS ---
Discharge Plan Disposition Patient Disposition: [facility] INPATIENT Condition: Stable Discharge Details Chief Complaint: Chest Pain Clinical Impression: Acute pancreatitis, Pancreatic pseudocyst, Chest pain Primary Care Provider: Brian Longo ED Provider: Jian Campuzano [place] Meds and New Rx's Prescriptions: No Action budesonide-formoterol [Symbicort] 80-4.5 mcg/actuation HFA aerosol inhaler 1 puff Inhalation BID Qty: 1 11RF albuterol sulfate [ProAir HFA] 90 mcg/actuation HFA aerosol inhaler 2 puff Inhalation Q6H PRN PRN (Reason: bronchospasm) Qty: 1 3RF atorvastatin 40 mg tablet 40 mg PO DAILY Qty: 90 3RF pantoprazole 40 mg tablet,delayed release (DR/EC) 40 mg PO BID Qty: 180 3RF sertraline 100 mg tablet 200 mg PO DAILY Qty: 180 3RF Rx Instructions: dose increase 04/19/21 dose increase 09/17/21 fluticasone propionate 50 mcg/actuation spray,suspension 2 spray intranasal DAILY Qty: 9.9 5RF Rx Instructions: administer into each nostril (DME) nebulizer and compressor [Comp-Air Elite Comp Neb System] 1 EACH device 1 ea Miscellaneous q 4 h prn Qty: 1 ipratropium-albuterol 0.5 mg-3 mg(2.5 mg base)/3 mL solution for nebulization 3 ml inhalation QID PRN (Reason: wheezing) Qty: 90 3RF ezetimibe [Zetia] 10 mg tablet 10 mg PO DAILY Qty: 90 3RF Trulance 3 mg tablet 3 mg PO DAILY Qty: 90 3RF Creon 12,000-38,000 -60,000 unit capsule,delayed release(DR/EC) 1 cap PO BID Qty: 60 2RF Rx Instructions: administer with meals and/or snacks acetaminophen 500 mg Tablet 1,000 mg PO PRN PRN oxycodone-acetaminophen [Percocet] 5-325 mg tablet 1 tab PO Q8H PRNQty: 8 0RF ondansetron 4 mg tablet,disintegrating 4 mg PO Q6H PRNQty: 14 1RF Medical Decision Making 47 yo male with hx of recurrent pancreatitis s/p cholecystectomy and non dri nker, who comes in with abdomen and chest pain. Seen here earlier this week and had lipase in the 70''s, felt better and d/c'd. He states his pain never completely resolved and has slowly been worsening and now has anterior chest pain. Denies fevers, chills, dyspnea. He is in no distress speaking in full sentences, has a soft nondistended abdomen with tenderness in the epigastric area, clear lungs. Suspect pancreatitis but given the chest pain will obtain ekg, troponin cta to evaluate for pe and also ct abdomen/pelvis. labs unremarkable other than lipase now over 1000, ct shows likely pseudocyst no other acute findings. He still has abdominal pain and doesn't feel comfortable going home as oxycodone hasn't controlled his pain, will discuss with hospitalist about admission Differential Diagnosis Differential Diagnosis: pancreatitis, sbo, pe, nstemi Imaging Data Radiologic Study: Attestation: I personally reviewed and interpreted this imaging study as follows: Imaging: CT Scan Radiologist's impression: IMPRESSION: 1. No pulmonary emboli. 2. Cystic pancreatic lesion, approximately 2.7 x 3.2 centimetres. Suggestion of mild peripancreatic stranding/infiltration, correlate clinically to rule out acute pancreatitis. Lab Data Lab results reviewed: Yes I reviewed the patient's lab results. ECG Data Attestation: I personally reviewed and interpreted this ECG (s) as follows: Prior ECG tracings: available for review Interpretation: sinus, rate of 73, no acute st t wave ischemic findings HPI General Mode of arrival: ambulatory . Date/Time Provider Initiated Documentation: 07/12/22 22:25 . Limitations to Documentation: no limitations . Information obtained by: patient . History of Present Illness 47 year old M presents to the emergency department with the chief complaint of chest and abdominal pain, described as moderate, Quality is described as sharp, and is localized to the chest and abdomen. Patient reports no radiation. Patient started experiencing this day(s) (3) and it has been constant. No relieving factors improve symptom(s), No exacerbating factors reported . Patient notes denies fever/chills. Patient did receive the following treatments prior to arrival, none Related Data Home Medications Medication Instructions Recorded Confirmed nebulizer and compressor (Comp-Air #1 ea 07/16/16 07/09/22 Elite Comp Neb System device) atorvastatin 40 mg tablet 40 mg PO DAILY #90 tab-caps 09/17/21 07/12/22 pantoprazole 40 mg tablet,delayed 40 mg PO BID #180 tab-caps 09/17/21 07/12/22 release sertraline 100 mg tablet 200 mg PO DAILY #180 tabs 09/17/21 07/12/22 fluticasone propionate 50 2 spray intranasal DAILY #9.9 grams 11/13/21 07/12/22 mcg/actuation nasal spray,suspension acetaminophen 500 mg tablet 1,000 mg PO PRN PRN 11/23/21 07/12/22 ipratropium 0.5 mg-albuterol 3 mg 3 ml inhalation QID PRN wheezing 12/05/21 07/12/22 (2.5 mg base)/3 mL nebulization #90 mL soln ezetimibe 10 mg tablet (Zetia) 10 mg PO DAILY #90 tab-caps 12/23/21 07/12/22 albuterol sulfate 90 mcg/actuation 2 puff inhalation Q6H PRN PRN 01/24/22 07/12/22 aerosol inhaler (ProAir HFA) bronchospasm #1 inh budesonide-formoterol HFA 80 1 puff inhalation BID ##1 01/24/22 07/12/22 mcg-4.5 mcg/actuation aerosol inhaler (Symbicort) ondansetron 4 mg disintegrating 4 mg PO Q6H PRN #14 tabs 05/30/22 07/12/22 tablet plecanatide 3 mg tablet (Trulance) 3 mg PO DAILY constipation #90 tabs 05/31/22 07/12/22 shoqsv-[id number] 1 cap PO BID #60 caps 06/10/22 07/12/22 12,000-38,000-60,000 unit capsule,delayed rel (Creon) oxycodone-acetaminophen 5 mg-325 1 tab PO Q8H PRN #8 tabs 07/09/22 mg tablet (Percocet) Previous Rx's Medication Instructions Recorded atorvastatin 40 mg tablet 40 mg PO DAILY #90 tab-caps 09/17/21 pantoprazole 40 mg tablet,delayed 40 mg PO BID #180 tab-caps 09/17/21 release sertraline 100 mg tablet 200 mg PO DAILY #180 tabs 09/17/21 fluticasone propionate 50 2 spray intranasal DAILY #9.9 grams 11/13/21 mcg/actuation nasal spray,suspension ipratropium 0.5 mg-albuterol 3 mg 3 ml inhalation QID PRN wheezing 12/05/21 (2.5 mg base)/3 mL nebulization #90 mL soln ezetimibe 10 mg tablet (Zetia) 10 mg PO DAILY #90 tab-caps 12/23/21 albuterol sulfate 90 mcg/actuation 2 puff inhalation Q6H PRN PRN 01/24/22 aerosol inhaler (ProAir HFA) bronchospasm #1 inh budesonide-formoterol HFA 80 1 puff inhalation BID ##1 01/24/22 mcg-4.5 mcg/actuation aerosol inhaler (Symbicort) ondansetron 4 mg disintegrating 4 mg PO Q6H PRN #14 tabs 05/30/22 tablet plecanatide 3 mg tablet (Trulance) 3 mg PO DAILY constipation #90 tabs 05/31/22 [id number] 1 cap PO BID #60 caps 06/10/22 12,000-38,000-60,000 unit capsule,delayed rel (Creon) oxycodone-acetaminophen 5 mg-325 1 tab PO Q8H PRN #8 tabs 07/09/22 mg tablet (Percocet) Allergies Allergy/AdvReac Type Severity Reaction Status Date / Time Fish Containing Products Allergy Intermediate hives Verified 07/12/22 22:46 aspirin AdvReac Intermediate epistaxis Verified 07/12/22 22:46 seafood Allergy Intermediate Hives Uncoded 07/12/22 22:46 hydrocodone-homatropine AdvReac Intermediate GI UPSET Uncoded 07/12/22 22:46 General Stated Complaint: Chest Pain DONG: 2 Review of Systems All systems reviewed & are unremarkable except as noted in HPI and below Constitutional Constitutional: Denies chills, Denies fever(s) and Denies weakness Cardiovascular Cardiovascular: Denies dyspnea Respiratory Respiratory: Denies cough and Denies dyspnea Gastrointestinal Gastrointestinal: Denies vomiting Genitourinary Genitourinary: Denies dysuria Neurologic Neurologic: Denies weakness PFSH All Active Problems Chest pain (Acute) Sensorineural hearing loss (SNHL) of both ears (Acute) S/P BKA (below knee amputation) (Acute) Pancreatic pseudocyst (Acute) Skin ulcer (Acute) Acute pancreatitis (Acute) Acute cholecystitis (Acute) Below-knee amputation of right lower extremity (Acute) Chest pain at rest (Acute) RADIATION DOWN HIS ARMS Tobacco use (Acute) Medical History Acquired deformity of nail s/p nail excision and matrix ablation 11/10/19 Ankle pain right, chronic Ankle pain, left Anxiety Arthritis Arthritis FOOT/ANKLE 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 Asthma 09/15/12 Burning sensation of feet Callous ulcer REFERRED TO DERM 12/22/13 Constipation due to opioid therapy Curvature of spine S/P FIXATION WITH RODS Cyst of skin TOP OF LEFT FOOT-PAINFUL Deafness Depression with anxiety Fracture of distal phalanx of right index finger Snowblowing injury Ganglion cyst Gastritis GERD (gastroesophageal reflux disease) History of reduction of closed fracture Hyperglycemia Hyperlipidemia Hypoglycemia Insomnia Leg pain, right Lipoma Loss of taste Low back pain Low back pain associated with a spinal disorder other than radiculopathy or spinal stenosis Lung nodules Migraine Mood disorder deteriorated Neck pain Neuropathy Pain, foot, right, chronic Partial Achilles tendon tear left 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 Snowblowing injury causing partial amputation Surgical revision of amputation DOS: 08/31/18 Partial traumatic transphalangeal amputation of right ring finger Snowblowing injury causing partial amputation Surgical revision of amputation DOS: 08/31/18 Right ankle joint deformity Right leg numbness Scrotal lesion Sebaceous cyst Sensorineural hearing loss of both ears Sinus headache Sprain of unspecified ligament of left ankle, subsequent encounter (06/30/16) Testicular pain, right 11/10/12-COMES AND GOES tobacco abuse Viral warts Wart of hand Surgical History Excision, Skin Mass 2008-LUQ LIPOMA Fracture, Closed Treatment ANKLE History of back surgery History of excision of mass History of neck surgery History of spinal surgery History of surgical 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 Family History Father Alcohol abuse Essential hypertension Heart disease Neoplasm Stroke Mother Essential hypertension COPD (chronic obstructive pulmonary disease) Depression Hyperlipidemia Neoplasm Stroke Asthma SIBLING ADHD (attention deficit hyperactivity disorder) Sister No problems noted. Brother Essential hypertension Grandfather Diabetes Alcohol abuse Grandfather Brain tumor Stroke Grandmother Diabetes Grandmother Heart disease Neoplasm Cervical cancer Stroke Family History Blood disorder Neoplasm Stomach,melanoma Social History Smoking/Tobacco Use Status: Current every day Tobacco Type: cigarettes Tobacco: How many years used: 30 Second Hand Exposure: Yes Smoking risk assessment performed?: Yes Alcohol Intake: former Drug use: Never Substance use type: does not use Details: Stated 6 mos sobriety Household members: spouse Housing: apartment Number of Children: 4 Communication Needs: Hard of Hearing Do you need help understanding health information?: Rarely Pets and animals: Yes Pets and animals: cat(s) and dog(s) Sexually active: No Do you think of yourself as: straight/heterosexual Current gender identity: female What is your relationship status?: How often do you talk on the phone with friends or family?: three or more times per week Do you belong to any clubs or organized social groups?: no Panel score (0-1 are the most socially isolated patients): 2 What type of physical activity do you participate in: walking, aerobic and swimming Duration: < 15 minutes/day Mariajose/Roman Catholic: No preference Special mariajose needs: No Seatbelt use: always Helmet use: No Drive intox or ride w/intox local driver: No Do you feel safe at home: Yes Do you feel safe in your relationship?: Yes Exam Const General: no acute distress Orientation: alert HENMT Head: normal to inspection Ears: external ears normal General nose exam: external nose normal Mouth: moist mucous membranes Eyes General: appearance normal, both eyes and all related structures Neck Neck: normal visual inspection Resp Effort & Inspection: normal respiratory effort and able to speak in complete sentences Cardio Rate: regular rate GI Palpation: soft and tender Skin General skin exam: no rashes or lesions noted Neuro General: patient alert and patient oriented x3 Extrem General: normal to inspection Psych Mental Status: mental status grossly normal Course Vital Signs Vital signs: Vital Signs Pulse 73 07/12/22 22:38 Respiratory Rate 27 H 07/12/22 22:38 Blood Pressure 94/66 L 07/12/22 22:38 Pulse Oximetry 94 07/12/22 22:38 Pulse 73 07/12/22 22:38 Respiratory Rate 24 07/12/22 22:42 Respiratory Effort Non-Labored 07/12/22 22:42 Respiratory Depth Normal 07/12/22 22:42 Respiratory Pattern Normal 07/12/22 22:42 Blood Pressure 94/66 L 07/12/22 22:38 Blood Pressure Position Supine 07/12/22 22:38 Pulse Oximetry 94 07/12/22 22:38 Oxygen Delivery Method Room Air 07/12/22 22:38 Oxygen Flow Rate 0 07/12/22 22:38 Pain Level 10 07/12/22 22:38
[2022-07-12] MEDS: Normal Saline 1,000 ML 1000 ML IV (23:08)
[2022-07-12] MEDS: HYDROmorphone 2 MG/ML SYR 1 MG IVP (23:08)
[2022-07-12 23:10] LABS: Source Nasal/Nares
[2022-07-12 23:11] LABS: Abs Immature Grans 0.03 10^3/uL (0.0-0.06); Absolute Basophil Count 0.02 10^3/uL (0.0-0.2); Absolute Eosinophil Count 0.12 10^3/uL (0.0-0.7); Absolute Lymphocyte Count 3.91 10^3/uL (1.2-3.4); Absolute Monocyte Count 0.77 10^3/uL (0.1-0.8); Absolute Neutrophil Count 5.63 10^3/uL (1.2-6.7); Basophils % 0.2; Eosinophils % 1.1; HCT 46.8 % (40.0-50.0); HGB 15.4 g/dL (13.5-17.5); Immature Grans % 0.3; Lymphocytes % 37.3; MCH 27.8 pg (27.0-33.0); MCHC 32.9 % (32.0-36.0); MCV 85 fL (80-95); MPV 9.3 fL (8.0-11.0); Monocytes % 7.3; Neutrophils % 53.8; Platelet Count 205 10^3/uL (130-400); RBC 5.53 10^6/uL (4.36-5.78); RDW 14.9 % (11.8-14.1); RDW-SD 46.2 fL; WBC 10.48 10^3/uL (4.4-10.8)
[2022-07-12 23:28] LABS: ALT 30 U/L (16-63); AST 22 U/L (15-37); Albumin 3.6 g/dL (3.4-5.0); Alkaline Phosphatase 121 U/L (46-116); Anion Gap 8.6 mmol/L (3-11); BUN 7 mg/dL (7-18); Bilirubin, Direct 0.2 mg/dL (0.0-0.2); Bilirubin, Total 0.7 mg/dL (0.2-1.0); CO2 27.4 mmol/L (21.0-32.0); CREATININE 0.8 mg/dL (0.70-1.30); Calcium 8.8 mg/dL (8.5-10.1); Chloride 104 mmol/L (98-107); Estimated GFR 108.49 (mL/min/1.73m2); Glucose 123 mg/dL (74-106); Lipase 1035 U/L (73-393); Magnesium 1.9 mg/dL (1.8-2.4); Potassium 3.4 mmol/L (3.5-5.1); Sodium 140 mmol/L (136-145); Total Protein 7.3 g/dL (6.4-8.2); Troponin I < 50 ng/L (<or=60)
[2022-07-12 23:29] LABS: ETHANOL BLOOD < 3.0 mg/dL (<10)
[2022-07-12] MEDS: Omnipaque 350 MG/ML 100 ML BTL IJ (23:37)
[2022-07-12] MEDS: Normal Saline Flush 10 ML SYR IVP (23:38)
[2022-07-12 23:41] LABS: COVID-19 PCR Negative (Negative)
[2022-07-13] VITALS (8 sets, daily range): BP systolic 92–115; BP diastolic 52–68; PULSE 52–78; RESP 18–20; TEMP 35.6–36.7; O2SAT 94–96
--- NOTE | 2022-07-13 00:09 | DI.VRAD_ITS ---
PROCEDURE INFORMATION: Exam: CTA Chest With Contrast CTA Abdomen With Contrast Exam date and time: 07/12/2022 11:17 PM Age: 47 years old Clinical indication: Other: Chest and abdominal pain TECHNIQUE: Imaging protocol: Computed tomographic angiography of the chest with contrast. Computed tomographic angiography of the abdomen with contrast. 3D rendering (Not supervised by radiologist): MIP and/or 3D reconstructed images were created by the technologist. Contrast material: OMNIPAQUE 350; Contrast volume: 100 ml; Contrast route: INTRAVENOUS (IV); COMPARISON: CT CHEST PE CTA 11/23/2021 3:54 PM FINDINGS: VASCULATURE: Pulmonary arteries: Normal. No pulmonary emboli. Aorta: No aortic aneurysm. No aortic dissection. Celiac trunk and mesenteric arteries: No occlusion or significant stenosis. Renal arteries: No occlusion or significant stenosis. CHEST: Lungs: The lungs demonstrate nonspecific bilateral dependent pleuroparenchymal changes. Bibasilar linear opacities of atelectasis and/or fibrosis. Pleural spaces: Unremarkable. No pneumothorax. No pleural effusion. Heart: Unremarkable. No cardiomegaly. No pericardial effusion. ABDOMEN AND PELVIS: Liver: No mass. Gallbladder and bile ducts: Status post cholecystectomy. Pancreas: cystic/low-density lesion arising from the head of the pancreas, 2.7 x 3.2 centimetres. The head of the pancreas is overall enlarged, masslike appearance, partially imaged. Mild peripancreatic stranding/infiltration, correlate clinically to rule out acute pancreatitis. Spleen: Unremarkable. No splenomegaly. Adrenal glands: Unremarkable. No mass. Kidneys and ureters: Unremarkable. No solid mass. No hydronephrosis. Stomach and bowel: Unremarkable. No obstruction. No mucosal thickening. Intraperitoneal space: Unremarkable. No free air. No significant fluid collection. Lymph nodes: Unremarkable. No enlarged lymph nodes. Bones/joints: Status post posterior spinal instrumentation and fusion, hardware at L3 through L5, concomitant bilateral laminectomies. Degenerative changes at T12-L1 and L1-L2 levels. Minimal retrolisthesis of L2 over L3.. Soft tissues: Small fat containing left inguinal hernia. IMPRESSION: 1. No pulmonary emboli. 2. Cystic pancreatic lesion, approximately 2.7 x 3.2 centimetres. Suggestion of mild peripancreatic stranding/infiltration, correlate clinically to rule out acute pancreatitis. Dictated and Authenticated by: Kemal Feliz MD. Ordering:BECKI Villar MD
[2022-07-13] MEDS: HYDROmorphone 2 MG/ML SYR 1 MG IVP ×3 (00:31→16:53)
[2022-07-13] MEDS: Normal Saline Flush 10 ML SYR IVP ×2 (01:35→16:53)
[2022-07-13] MEDS: Normal Saline 1,000 ML 150 ML IV ×4 (01:36→19:56)
[2022-07-13 02:27] LABS: Troponin I < 50 ng/L (<or=60)
--- NOTE | 2022-07-13 06:02 | HPE_ITS ---
Date of service: 07/13/22 Time of Service: 06:02 Assessment and Plan Assessment and plan (1) Acute pancreatitis: Start date: 07/12/22 Status: Acute Assessment and plan: This is a 47-year-old gentleman with acute on chronic pancreatitis with rising lipase and symptoms. He is doing better with bowel rest and IV hydration. He also is doing better on IV Dilaudid for pain control rather than oral narcotics which were attempted prior to admission. Continue trending lab with lipase and trending symptoms converting to oral hydration and oral therapy for pain control once stabilized. Long-term he is following up with [facility] for further evaluation of this recurrent problem. Triglycerides will be checked as well. Patient is having associated atypical chest pain with his pancreatitis at this is most likely secondary to the discomfort and bloating with negative evaluation for PE and cardiac ischemia. Patient is a full code. (2) Atypical chest pain: Start date: 07/12/22 Status: Acute Assessment and plan: Negative evaluation for PE or cardiac ischemia. Cardiac monitoring while hospitalized. Monitor as we treat acute pancreatitis discomfort. (3) Pancreatic pseudocyst: Status: Chronic Assessment and plan: By imaging with acute pancreatitis evident as well. Follow-up at [facility] as sc heduled. (4) Tobacco use: Status: Chronic Assessment and plan: Patient will not build splint during the hospital stay and will be on his usual inhalers. Offered nicotine supplement which he deferred. History of Present Illness History of Present Illness Chief Complaint: Abdominal pain with atypical chest pain Narrative: This is a 47-year-old male patient who has a history of recurrent pancreatitis being status postcholecystectomy and not a drinker of alcohol. He has idiopathic recurrent pancreatitis with lipase elevated during ED visit just prior to admission and then patient returning to the ED with increasing lipase and increasing pain with discomfort attempting to hydrate and eat at home. He failed outpatient therapy with oral narcotics. Patient did return to the ED also with some chest discomfort and had evaluation for possible cardiac ischemia and PE which were both negative. Imaging of the abdomen and pelvis did reveal a pseudocyst with acute pancreatitis. Patient was placed on bowel rest with IV hydration and IV Dilaudid for pain. He is comfortable with this regimen for now. He is being followed by GI at [facility] and does have some planned procedures for further evaluation of his recurrent pancreatitis. Patient offers no other history and has been stable on Pancrease enzymes with meals. He does have a previous history of pulmonary embolus with non-STEMI as well as small bowel obstruction with no abdominal bloating or evidence of bowel obstruction during this episode of pancreatitis. See ED report for further history. Review of Systems Narrative: 13 point review of systems otherwise unrevealing or stable. Patient's current episode has been evolving over the last several days. PFSH All Active Problems Atypical chest pain (Acute) Chest pain (Acute) Sensorineural hearing loss (SNHL) of both ears (Acute) S/P BKA (below knee amputation) (Acute) Pancreatic pseudocyst (Chronic) Skin ulcer (Acute) Acute pancreatitis (Acute) Acute cholecystitis (Acute) Below-knee amputation of right lower extremity (Acute) Chest pain at rest (Acute) RADIATION DOWN HIS ARMS Tobacco use (Chronic) Medical History Acquired deformity of nail s/p nail excision and matrix ablation 11/10/19 Ankle pain right, chronic Ankle pain, left Anxiety Arthritis Arthritis FOOT/ANKLE 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 Asthma 09/15/12 Burning sensation of feet Callous ulcer REFERRED TO DERM 12/22/13 Constipation due to opioid therapy Curvature of spine S/P FIXATION WITH RODS Cyst of skin TOP OF LEFT FOOT-PAINFUL Deafness Depression with anxiety Fracture of distal phalanx of right index finger Snowblowing injury Ganglion cyst Gastritis GERD (gastroesophageal reflux disease) History of reduction of closed fracture Hyperglycemia Hyperlipidemia Hypoglycemia Insomnia Leg pain, right Lipoma Loss of taste Low back pain Low back pain associated with a spinal disorder other than radiculopathy or spinal stenosis Lung nodules Migraine Mood disorder deteriorated Neck pain Neuropathy Pain, foot, right, chronic Partial Achilles tendon tear left 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 Snowblowing injury causing partial amputation Surgical revision of amputation DOS: 08/31/18 Partial traumatic transphalangeal amputation of right ring finger Snowblowing injury causing partial amputation Surgical revision of amputation DOS: 08/31/18 Right ankle joint deformity Right leg numbness Scrotal lesion Sebaceous cyst Sensorineural hearing loss of both ears Sinus headache Sprain of unspecified ligament of left ankle, subsequent encounter (06/30/16) Testicular pain, right 11/10/12-COMES AND GOES tobacco abuse Viral warts Wart of hand Surgical History Excision, Skin Mass 2009-LUQ LIPOMA Fracture, Closed Treatment ANKLE History of back surgery History of excision of mass History of neck surgery History of spinal surgery History of surgical 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 Family History Father Alcohol abuse Essential hypertension Heart disease Neoplasm Stroke Mother Essential hypertension COPD (chronic obstructive pulmonary disease) Depression Hyperlipidemia Neoplasm Stroke Asthma [place] ADHD (attention deficit hyperactivity disorder) Sister No problems noted. Brother Essential hypertension Grandfather Diabetes Alcohol abuse Grandfather Brain tumor Stroke Grandmother Diabetes Grandmother Heart disease Neoplasm Cervical cancer Stroke Family History Blood disorder Neoplasm Stomach,melanoma Social History Smoking/Tobacco Use Status: Current every day Tobacco Type: cigarettes Tobacco: How many years used: 30 Second Hand Exposure: Yes Smoking risk assessment performed?: Yes Alcohol Intake: former Drug use: Never Substance use type: does not use Details: Stated 6 mos sobriety Household members: spouse Housing: apartment Number of Children: 4 Communication Needs: Hard of Hearing Do you need help understanding health information?: Rarely Pets and animals: Yes Pets and animals: cat(s) and dog(s) Sexually active: No Do you think of yourself as: straight/heterosexual Current gender identity: female What is your relationship status?: How often do you talk on the phone with friends or family?: three or more times per week Do you belong to any clubs or organized social groups?: no Panel score (0-1 are the most socially isolated patients): 2 What type of physical activity do you participate in: walking, aerobic and swimming Duration: < 15 minutes/day Mariajose/Yarsanism: No preference Special mariajose needs: No Seatbelt use: always Helmet use: No 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 Do you feel safe at home: Yes Do you feel safe in your relationship?: Yes Meds Allergies and Home Medications Allergies Allergy/AdvReac Type Severity Reaction Status Date / Time Fish Containing Products Allergy Intermediate hives Verified 07/12/22 22:46 aspirin AdvReac Intermediate epistaxis Verified 07/12/22 22:46 seafood Allergy Intermediate Hives Uncoded 07/12/22 22:46 hydrocodone-homatropine AdvReac Intermediate GI UPSET Uncoded 07/12/22 22:46 Home Medications Medication Instructions Recorded Confirmed Type nebulizer and compressor (Comp-Air #1 ea 07/16/16 07/09/22 History Elite Comp Neb System device) atorvastatin 40 mg tablet 40 mg PO DAILY #90 tab-caps 09/17/21 07/12/22 Rx pantoprazole 40 mg tablet,delayed 40 mg PO BID #180 tab-caps 09/17/21 07/12/22 Rx release sertraline 100 mg tablet 200 mg PO DAILY #180 tabs 09/17/21 07/12/22 Rx fluticasone propionate 50 2 spray intranasal DAILY #9.9 grams 11/13/21 07/12/22 Rx mcg/actuation nasal spray,suspension acetaminophen 500 mg tablet 1,000 mg PO PRN PRN 11/23/21 07/12/22 History ipratropium 0.5 mg-albuterol 3 mg 3 ml inhalation QID PRN wheezing 12/05/21 Rx (2.5 mg base)/3 mL nebulization #90 mL soln ezetimibe 10 mg tablet (Zetia) 10 mg PO DAILY #90 tab-caps 12/23/21 07/12/22 Rx albuterol sulfate 90 mcg/actuation 2 puff inhalation Q6H PRN PRN 01/24/22 07/12/22 Rx aerosol inhaler (ProAir HFA) bronchospasm #1 inh budesonide-formoterol HFA 80 1 puff inhalation BID ##1 01/24/22 07/12/22 Rx mcg-4.5 mcg/actuation aerosol inhaler (Symbicort) ondansetron 4 mg disintegrating 4 mg PO Q6H PRN #14 tabs 05/30/22 07/12/22 Rx tablet plecanatide 3 mg tablet (Trulance) 3 mg PO DAILY constipation #90 tabs 05/31/22 07/12/22 Rx ltizno-onfffofm-zzevwnp 1 cap PO BID #60 caps 06/10/22 07/12/22 Rx 12,000-38,000-60,000 unit capsule,delayed rel (Creon) oxycodone-acetaminophen 5 mg-325 1 tab PO Q8H PRN #8 tabs 07/09/22 Rx mg tablet (Percocet) Exam Narrative Exam Narrative: General: Patient is disheveled and appears older than stated age, alert and oriented to person, place and time. He is in moderate distress from his discomfort but states he is more comfortable than earlier. HEENT: Normocephalic, coarsened facial features with unkempt avery and hair, eyes with pupils equal and reactive light symmetrically, extraocular movement tact and sclera anicteric. Oropharynx with dry mucosa. Neck: Supple without JVD. Back: Slightly stooped posture without CVA tenderness. Lungs: Bronchovesicular breath sounds diffusely with no focalizing rales or rhonchi. No expiratory wheeze or increased expiratory phase. Fair ration. Heart: Regular rate and rhythm with no murmurs gallops appreciated. Abdomen: Slightly protuberant, guarding diffusely but especially over the epigastrium with patient and not allowing deep palpation to assess for hepatosplenomegaly. Bowel sounds are present but decreased in all quadrants. There is no tympany to percussion. Genitalia/rectal: Exam deferred. Extremity: Without clubbing, cyanosis or pitting edema. Good capillary refill with pulses intact over extremities except for right foot with patient having an BKA midway over the leg on the right from a failed ankle procedure recently. Skin: Normal color, warm and dry. Multiple tattoos. Neuro: Cranial nerves II through XII is intact, no focal motor deficits and no tremor. Psych: Flattened affect with depressed mood, no abnormal thought processes. Remote and recent memory intact. Results Imaging Imaging Studies: Exam: CTA Chest With Contrast CTA Abdomen With Contrast Exam date and time: 07/12/2022 11:17 PM Age: 47 years old Clinical indication: Other: Chest and abdominal pain TECHNIQUE: Imaging protocol: Computed tomographic angiography of the chest with contrast. Computed tomographic angiography of the abdomen with contrast. 3D rendering (Not supervised by radiologist): MIP and/or 3D reconstructed images were created by the technologist. Contrast material: OMNIPAQUE 350; Contrast volume: 100 ml; Contrast route: INTRAVENOUS (IV);? COMPARISON: CT CHEST PE CTA 11/23/2021 3:54 PM FINDINGS: VASCULATURE: Pulmonary arteries: Normal. No pulmonary emboli. Aorta: No aortic aneurysm. No aortic dissection. Celiac trunk and mesenteric arteries: No occlusion or significant stenosis. Renal arteries: No occlusion or significant stenosis. CHEST: Lungs: The lungs demonstrate nonspecific bilateral dependent pleuroparenchymal changes. Bibasilar linear opacities of atelectasis and/or fibrosis. Pleural spaces: Unremarkable. No pneumothorax. No pleural effusion. Heart: Unremarkable. No cardiomegaly. No pericardial effusion. ABDOMEN AND PELVIS: Liver: No mass. Gallbladder and bile ducts: Status post cholecystectomy. Pancreas: cystic/low-density lesion arising from the head of the pancreas, 2.7 x 3.2 centimetres. The head of the pancreas is overall enlarged, masslike appearance, partially imaged. Mild peripancreatic stranding/infiltration, correlate clinically to rule out acute pancreatitis. Spleen: Unremarkable. No splenomegaly. Adrenal glands: Unremarkable. No mass. Kidneys and ureters: Unremarkable. No solid mass. No hydronephrosis. Stomach and bowel: Unremarkable. No obstruction. No mucosal thickening. Intraperitoneal space: Unremarkable. No free air. No significant fluid collection. Lymph nodes: Unremarkable. No enlarged lymph nodes. Bones/joints: Status post posterior spinal instrumentation and fusion, hardware at L3 through L5, concomitant bilateral laminectomies. Degenerative changes at T12-L1 and L1-L2 levels. Minimal retrolisthesis of L2 over L3.. Soft tissues: Small fat containing left inguinal hernia. IMPRESSION: 1. No pulmonary emboli. 2. Cystic pancreatic lesion, approximately 2.7 x 3.2 centimetres. Suggestion of mild peripancreatic stranding/infiltration, correlate clinically to rule out acute pancreatitis. Labs Result diagrams: 07/13/22 07:30 07/13/22 07:30 Labs: Laboratory Results - last 24 hr 07/12/22 07/12/22 07/12/22 23:05 23:05 23:05 WBC 10.48 RBC 5.53 Hgb 15.4 Hct 46.8 MCV 85 MCH 27.8 MCHC 32.9 RDW 14.9 H Plt Count 205 MPV 9.3 Immature Gran % 0.3 Neutrophils % 53.8 Lymphocytes % 37.3 Monocytes % 7.3 Eosinophils % 1.1 Basophils % 0.2 Nucleated RBC % 0.0 Absolute Neutrophils 5.63 Absolute Lymphocytes 3.91 H Absolute Monocytes 0.77 Absolute Eosinophils 0.12 Absolute Basophils 0.02 Sodium 140 Potassium 3.4 L Chloride 104 Carbon Dioxide 27.4 Anion Gap 8.6 BUN 7 Creatinine 0.8 Est GFR (CKD-EPI 2020) 108.49 Glucose 123 H Calcium 8.8 Magnesium 1.9 Total Bilirubin 0.7 Conjugated Bilirubin 0.2 AST 22 ALT 30 Alkaline Phosphatase 121 H Troponin I < 50 Total Protein 7.3 Albumin 3.6 Lipase 1035 H Ethyl Alcohol < 3.0 COVID-19 Source Nasal/Nares SARS-CoV-2 (PCR) Negative 07/13/22 01:56 WBC RBC Hgb Hct MCV MCH MCHC RDW Plt Count MPV Immature Gran % Neutrophils % Lymphocytes % Monocytes % Eosinophils % Basophils % Nucleated RBC % Absolute Neutrophils Absolute Lymphocytes Absolute Monocytes Absolute Eosinophils Absolute Basophils Sodium Potassium Chloride Carbon Dioxide Anion Gap BUN Creatinine Est GFR (CKD-EPI 2020) Glucose Calcium Magnesium Total Bilirubin Conjugated Bilirubin AST ALT Alkaline Phosphatase Troponin I < 50 Total Protein Albumin Lipase Ethyl Alcohol COVID-19 Source SARS-CoV-2 (PCR) Last Vital Signs Temp 36.7 C 07/13/22 03:10 Pulse 76 07/13/22 03:10 Resp 20 07/13/22 03:10 BP 105/65 07/13/22 03:10 Pulse Ox 96 07/13/22 03:10
[2022-07-13 07:52] LABS: HCT 43.5 % (40.0-50.0); HGB 14.2 g/dL (13.5-17.5); MCH 27.9 pg (27.0-33.0); MCHC 32.6 % (32.0-36.0); MCV 86 fL (80-95); MPV 9.7 fL (8.0-11.0); Platelet Count 197 10^3/uL (130-400); RBC 5.09 10^6/uL (4.36-5.78); RDW 15.1 % (11.8-14.1); RDW-SD 47.2 fL; WBC 7.59 10^3/uL (4.4-10.8)
[2022-07-13] MEDS: Budesonide/Formoterol 80/4.5 6.9 GM 60 PUFF INH IH ×2 (08:08→19:41)
[2022-07-13 08:12] LABS: Triglyceride 77 mg/dL (<150)
[2022-07-13 08:20] LABS: ALT 26 U/L (16-63); AST 19 U/L (15-37); Alkaline Phosphatase 100 U/L (46-116); Anion Gap 4.9 mmol/L (3-11); BUN 7 mg/dL (7-18); Bilirubin, Total 0.7 mg/dL (0.2-1.0); CO2 28.1 mmol/L (21.0-32.0); CREATININE 0.7 mg/dL (0.70-1.30); Calcium 8.3 mg/dL (8.5-10.1); Chloride 108 mmol/L (98-107); Estimated GFR 112.95 (mL/min/1.73m2); Glucose 103 mg/dL (74-106); Sodium 141 mmol/L (136-145); Total Protein 6.4 g/dL (6.4-8.2)
--- NOTE | 2022-07-13 08:54 | INITIAL_ITS ---
- If Service Date Differs Date of service: 07/13/22 Time of Service: 08:54 Care Management Initial Assess REASON FOR HOSPITALIZATION:: Abdominal pain with atypical chest pain PAST MEDICAL HISTORY/PAST SURGICAL HISTORY:: All Active Problems. Chest pain (Acute). Sensorineural hearing loss (SNHL) of both ears (Acute). S/P BKA (below knee amputation) (Acute). Pancreatic pseudocyst (Acute). Skin ulcer (Acute). Acute pancreatitis (Acute). Acute cholecystitis (Acute). Below-knee amputation of right lower extremity (Acute). Chest pain at rest (Acute). RADIATION DOWN HIS ARMS. Tobacco use (Acute). Medical History . Acquired deformity of nail. s/p nail excision and matrix ablation 11/10/19. Ankle pain. right, chronic. Ankle pain, left. Anxiety. Arthritis. Arthritis. FOOT/ANKLE. Arthritis of right ankle. Arthritis of right subtalar joint. Asthma. 09/15/12. Burning sensation of feet. Callous ulcer. REFERRED TO DERM 12/22/13. Constipation due to opioid therapy. Curvature of spine. S/P FIXATION WITH RODS. Cyst of skin. TOP OF LEFT FOOT-PAINFUL. Deafness. Depression with anxiety. Fracture of distal phalanx of right index finger. Snowblowing injury. Ganglion cyst. Gastritis. GERD (gastroesophageal reflux disease). History of reduction of closed fracture. Hyperglycemia. Hyperlipidemia. Hypoglycemia. Insomnia. Leg pain, right. Lipoma. Loss of taste. Low back pain. Low back pain associated with a spinal disorder other than radiculopathy or spinal stenosis. Lung nodules. Migraine. Mood disorder. deteriorated. Neck pain. Neuropathy. Pain, foot, right, chronic. Partial Achilles tendon tear. left. 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. Snowblowing injury causing partial amputation. Surgical revision of amputation. DOS: 08/31/18. Partial traumatic transphalangeal amputation of right ring finger. Snowblowing injury causing partial amputation. Surgical revision of amputation. DOS: 08/31/18. Right ankle joint deformity. Right leg numbness. Scrotal lesion. Sebaceous cyst. Sensorineural hearing loss of both ears. Sinus headache. Sprain of unspecified ligament of left ankle, subsequent encounter (06/30/16). Testicular pain, right. 11/10/12-COMES AND GOES. tobacco abuse. Viral warts. Wart of hand. Surgical History . Excision, Skin Mass. 2009-LUQ LIPOMA. Fracture, Closed Treatment. ANKLE. History of back surgery. History of excision of mass. History of neck surgery. History of spinal surgery. History of surgical amputation of finger of right hand. 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 Hx of arthroscopic knee surgery. Hx of right BKA. 11/21/21 [facility] (Dr Murray). NECK SURGERY. 09/19-WITH METAL PLATE. Open Carpal Tunnel release. 204-RIGHT. Postsurgical arthrodesis status (08/22/20). rt ankle. Status post carpal tunnel release. Tibial fracture. S/P tibial nail fixation. PREVIOUS FUNCTIONAL STATUS/SOCIAL/FAMILY SUPPORTS:: Cole lives in [place] with his Kendra and an elderly gentleman. He has 2 children, one lives in [place] and the other is in [place], [place] He is close to his children and identifies them as a source of support. Cole also has 2 step children that he is not allowed to have contact with. He is disabled and does not drive, although his does and can transport him as needed. CURRENT FUNCTIONAL STATUS:: Cole is lying in bed when CM met with him. He is oriented, but drowsy. Conversation is limited at this time. CM will continue to follow. ADVANCE DIRECTIVES:: on file. Kendra [facility] Has patient been provided with info about the portal/API?: Yes Did the patient sign up for the portal?: Yes (Prior to admission) CODE STATUS:: Full Code INSURANCE COVERAGE / FINANCIAL ISSUES:: Medicare. Medicaid CURRENT HOME/COMMUNITY SERVICES/EQUIPMENT:: no services but Cole is on disability. PRIMARY CARE PHYSICIAN:: Brian Longo POTENTIAL DISCHARGE NEEDS:: follow up with PCP PATIENT/FAMILY EDUCATION NEEDS:: Review of discharge instructions, follow up plan, medications, activity, limitations and discuss [employer] TRANSPORTATION:: via private vehicle PLAN:: Cole will likely be discharged home with no new services. He will follow up with his community providers and plan of care and transport with family. CM will support Cole and his discharge planning needs.
[2022-07-13] MEDS: Pantoprazole 40 MG TABCR PO ×2 (09:32→19:42)
[2022-07-13] MEDS: Sertraline 100 MG TAB 200 MG PO (09:34)
[2022-07-13] MEDS: Atorvastatin 40 MG TAB PO (09:35)
[2022-07-13] MEDS: Ezetimibe 10 MG TAB PO (09:35)
[2022-07-13] MEDS: Enoxaparin 40 MG/0.4 ML SYR SC (09:35)
[2022-07-13] MEDS: Acetaminophen 325 MG TAB PO ×2 (09:40→21:55)
[2022-07-13] MEDS: Fluticasone NASAL SPRAY 16 GM BTL NS (09:42)
[2022-07-13 10:11] LABS: Bilirubin Negative (Negative); Blood Negative (Negative); Clarity Clear (Clear); Glucose Negative (Negative); Ketones Negative (Negative); Leukocyte Esterase Negative (Negative); Nitrite Negative (Negative); Urobilinogen 0.2 EU/dL (Up TO 0.2)
[2022-07-14] MEDS: Normal Saline 1,000 ML 150 ML IV ×2 (02:45→09:01)
[2022-07-14 03:17] VITALS: BP 107/69; PULSE 54; RESP 14; TEMP 35.8; O2SAT 94
[2022-07-14 06:27] LABS: Abs Immature Grans 0.02 10^3/uL (0.0-0.06); Absolute Basophil Count 0.01 10^3/uL (0.0-0.2); Absolute Lymphocyte Count 2.89 10^3/uL (1.2-3.4); Absolute Monocyte Count 0.44 10^3/uL (0.1-0.8); Absolute Neutrophil Count 3.63 10^3/uL (1.2-6.7); Basophils % 0.1; Eosinophils % 1.4; HCT 42.1 % (40.0-50.0); HGB 13.8 g/dL (13.5-17.5); Immature Grans % 0.3; Lymphocytes % 40.8; MCHC 32.8 % (32.0-36.0); MCV 86 fL (80-95); Monocytes % 6.2; Neutrophils % 51.2; Platelet Count 169 10^3/uL (130-400); RBC 4.92 10^6/uL (4.36-5.78); RDW 15.3 % (11.8-14.1); RDW-SD 47.8 fL; WBC 7.09 10^3/uL (4.4-10.8)
[2022-07-14 06:47] LABS: ALT 25 U/L (16-63); AST 21 U/L (15-37); Albumin 2.9 g/dL (3.4-5.0); Alkaline Phosphatase 91 U/L (46-116); Anion Gap 8.1 mmol/L (3-11); BUN 4 mg/dL (7-18); Bilirubin, Total 1.2 mg/dL (0.2-1.0); CO2 23.9 mmol/L (21.0-32.0); CREATININE 0.6 mg/dL (0.70-1.30); Calcium 8.6 mg/dL (8.5-10.1); Chloride 109 mmol/L (98-107); Estimated GFR 118.34 (mL/min/1.73m2); Glucose 100 mg/dL (74-106); Lipase 591 U/L (73-393); Magnesium 1.8 mg/dL (1.8-2.4); Sodium 141 mmol/L (136-145); Total Protein 6.2 g/dL (6.4-8.2)
[2022-07-14 07:33] VITALS: BP 114/72; PULSE 61; RESP 16; TEMP 36.8; O2SAT 97
[2022-07-14] MEDS: Budesonide/Formoterol 80/4.5 6.9 GM 60 PUFF INH IH (07:43)
[2022-07-14] MEDS: HYDROmorphone 2 MG/ML SYR 1 MG IVP (07:47)
[2022-07-14] MEDS: Normal Saline Flush 10 ML SYR IVP (07:48)
--- NOTE | 2022-07-14 08:45 | PDOC.CMPRO ---
- If Service Date Differs Date of service: 07/14/22 Time of Service: 08:45 Care Management Progress Note S/O: A: Cole is a 47 year old man admitted on 07/13/22with pancreatitis P:Cole will likely be discharged home with no new services. He will follow up with his community providers and plan of care and transport with family. CM will support Cole and his discharge planning needs.
[2022-07-14] MEDS: Enoxaparin 40 MG/0.4 ML SYR SC (08:59)
[2022-07-14] MEDS: Ezetimibe 10 MG TAB PO (09:00)
[2022-07-14] MEDS: Pantoprazole 40 MG TABCR PO (09:00)
[2022-07-14] MEDS: Sertraline 100 MG TAB 200 MG PO (09:01)
[2022-07-14] MEDS: Atorvastatin 40 MG TAB PO (09:01)
[2022-07-14] MEDS: Milk of Magnesia 30 ML CUP PO (09:53)
[2022-07-14 10:13] VITALS: O2SAT 97
--- NOTE | 2022-07-14 11:07 | W.PM.DS.N ---
Date of service: 07/14/22 Time of Service: 11:07 DS: Diagnosis Discharge Diagnosis (1) Acute pancreatitis: Status: Acute (2) Atypical chest pain: Status: Acute (3) Pancreatic pseudocyst: Status: Chronic (4) Tobacco use: Status: Chronic Discharge Plan Disposition Patient Disposition: HOME Condition: Stable Discharge Details Reason For Visit: Acute Pancreatitis Admit Date/Time: 07/13/22 00:26 Admit Provider: Umang Waterman Attending Provider: Umang Waterman Primary Care Provider: Brian Longo Hospital Course Hospital Course: This is a 47-year-old male patient who has a history of recurrent pancreatitis being status postcholecystectomy and not a drinker of alcohol.? He has idiopathic recurrent pancreatitis with lipase elevated during ED visit just prior to admission and then patient returning to the ED with increasing lipase and increasing pain with discomfort attempting to hydrate and eat at home.? He failed outpatient therapy with oral narcotics.? Patient did return to the ED also with some chest discomfort and had evaluation for possible cardiac ischemia and PE which were both negative.? Imaging of the abdomen and pelvis did reveal a pseudocyst with acute pancreatitis.? Patient was placed on bowel rest with IV hydration and IV Dilaudid for pain.? He is comfortable with this regimen for now.? He is being followed by GI at [facility] [place] [place] and does have some planned procedures for further evaluation of his recurrent pancreatitis.? Patient offers no other history and has been stable on Pancrease enzymes with meals.? He does have a previous history of pulmonary embolus with non-STEMI as well as small bowel obstruction, he has no abdominal bloating or evidence of bowel obstruction during this episode of pancreatitis. [facility] 2 was taking solids without pain. His Lipase has decreased to 591. He reports significantly decreased pain. He is in agreement to going home and follow up with GI at [facility] [place] [place] as planned. He was discharged to home, stable. Home Meds and New Rx's Prescriptions: Continued budesonide-formoterol [Symbicort] 80-4.5 mcg/actuation HFA aerosol inhaler 1 puff Inhalation BID Qty: 1 11RF albuterol sulfate [ProAir HFA] 90 mcg/actuation HFA aerosol inhaler 2 puff Inhalation Q6H PRN PRN (Reason: bronchospasm) Qty: 1 3RF atorvastatin 40 mg tablet 40 mg PO DAILY Qty: 90 3RF pantoprazole 40 mg tablet,delayed release (DR/EC) 40 mg PO BID Qty: 180 3RF sertraline 100 mg tablet 200 mg PO DAILY Qty: 180 3RF Rx Instructions: dose increase 04/19/21 dose increase 09/17/21 fluticasone propionate 50 mcg/actuation spray,suspension 2 spray intranasal DAILY Qty: 9.9 5RF Rx Instructions: administer into each nostril (DME) nebulizer and compressor [Comp-Air Elite Comp Neb System] 1 EACH device 1 ea Miscellaneous q 4 h prn Qty: 1 ipratropium-albuterol 0.5 mg-3 mg(2.5 mg base)/3 mL solution for nebulization 3 ml inhalation QID PRN (Reason: wheezing) Qty: 90 3RF ezetimibe [Zetia] 10 mg tablet 10 mg PO DAILY Qty: 90 3RF Trulance 3 mg tablet 3 mg PO DAILY Qty: 90 3RF Creon 12,000-38,000 -60,000 unit capsule,delayed release(DR/EC) 1 cap PO BID Qty: 60 2RF Rx Instructions: administer with meals and/or snacks acetaminophen 500 mg Tablet 1,000 mg PO PRN PRN oxycodone-acetaminophen [Percocet] 5-325 mg tablet 1 tab PO Q8H PRNQty: 8 0RF ondansetron 4 mg tablet,disintegrating 4 mg PO Q6H PRNQty: 14 1RF Discharge Instructions Instructions: Pancrelipase (By mouth), Pancreatitis (DC) Additional Instructions: Nutrition is a vitally important part of treatment for patients with pancreatitis. The primary goals of nutritional management for chronic pancreatitis are: Prevent malnutrition and nutritional deficiencies Maintain normal blood sugar levels (avoid both hypoglycemia and hyperglycemia) Prevent or optimally manage diabetes, kidney problems, and other conditions associated with chronic pancreatitis Avoid causing an acute episode of pancreatitis To best achieve those goals, it is important for pancreatitis patients to eat high protein, nutrient-dense diets that include fruits, vegetables, whole grains, low fat dairy, and other lean protein sources. Abstinence from alcohol and greasy or fried foods is important in helping to prevent malnutrition and pain.? Stand Alone Forms: Nursing Discharge Form Referrals: Brian Longo MD [Primary Care Provider] - 07/23/22 10:00 am Activity:: Activity as Tolerated Equipment/Supplies:: No Equipment Needed Diet:: As Tolerated Discharge Orders Discharge Orders: Discharge Order (Routine); Ordered 07/14/22 Ordered By: Trinity Espinoza Discharge Data Discharge Date/Time-TO BE ENTERED AT DEPARTURE: 07/14/22 13:42 DS: Summary Time Spent with Patient providing and/or coordinating discharge services: Less than 30 minutes Status at Discharge Functional status at discharge: independent ambulation Overall status at discharge: patient is progressing back to baseline Mental Status: mental status grossly normal Speech and Movement: speech and movement normal Mood: congruent mood Affect: normal affect Exam Narrative Exam Narrative: General: Patient is disheveled and appears older than stated age, alert and oriented to person, place and time. Sitting in a chair with bedside table drawing. HEENT: Normocephalic, coarsened facial features with unkempt avery and hair, eyes with pupils equal and reactive light symmetrically, extraocular movement intact and sclera anicteric. Oropharynx with dry mucosa. Neck: Supple without JVD. Back: Slightly stooped posture without CVA tenderness. Lungs: Bronchovesicular breath sounds diffusely with no focalizing rales or rhonchi. No expiratory wheeze or increased expiratory phase. Fair aeration. Heart: Regular rate and rhythm with no murmurs gallops appreciated. Abdomen: Slightly protuberant, slight guarding and prefers no palpation of mid abdomen. Bowel sounds are present. Genitalia/rectal: Exam deferred. Extremity: Without clubbing, cyanosis or pitting edema. Good capillary refill with pulses intact over extremities except for right foot with patient having an BKA Neuro: Cranial nerves II through XII is intact, no focal motor deficits and no tremor. Psych: Flattened affect with depressed mood, no abnormal thought processes. Remote and recent memory intact. Psych Mental Status: mental status grossly normal Speech and Movement: speech and movement normal Mood: congruent mood Affect: normal affect DS: Data Vitals/I&O Vitals and I&O: Vital Signs Temperature 36.8 C 07/14/22 07:33 Temperature Source Tympanic 07/14/22 07:33 Pulse 61 07/14/22 07:33 Pulse Rhythm Regular 07/14/22 09:12 Respiratory Rate 16 07/14/22 07:33 Respiratory Effort Non-Labored 07/14/22 09:12 Respiratory Depth Normal 07/14/22 09:12 Respiratory Pattern Normal 07/14/22 09:12 Blood Pressure 114/72 07/14/22 07:33 Blood Pressure Position Supine 07/12/22 22:38 Pulse Oximetry 97 07/14/22 10:13 Oxygen Delivery Method Room Air 07/14/22 10:13 Oxygen Flow Rate 0 07/14/22 10:13 Pain Level 10 07/14/22 07:47 Comment 07/13/22 07:29 Intake & Output 07/13/22 07/13/22 07/14/22 11:59 23:59 11:59 Intake Total 1992.5 / 3990.0 1996.5 / 3990.0 1939 Output Total 500 / 850 350 / 850 1850 / 1850 Balance 1492.5 / 3140.0 1647.5 / 3140.0 90 / 90 Weight 76.9 kg Intake: IV 1992.5 / 3750.0 1757.5 / 3750.0 1939 Oral 240 / 240 Output: Urine 500 / 850 350 / 850 1850 / 1850 Other: Urine Color Pale Pale Yellow Urine Appearance Clear Clear Clear Urine Odor None Voiding Methods Urinal Urinal Urinal Data Completed and Pending Labs on day of discharge: Labs from last 24 hours 07/14/22 07/14/22 05:50 05:50 WBC 7.09 RBC 4.92 Hgb 13.8 Hct 42.1 MCV 86 MCH 28.0 MCHC 32.8 RDW 15.3 H Plt Count 169 MPV 10.0 Immature Gran % 0.3 Neutrophils % 51.2 Lymphocytes % 40.8 Monocytes % 6.2 Eosinophils % 1.4 Basophils % 0.1 Nucleated RBC % 0.0 Absolute Neutrophils 3.63 Absolute Lymphocytes 2.89 Absolute Monocytes 0.44 Absolute Eosinophils 0.10 Absolute Basophils 0.01 Sodium 141 Potassium 4.0 Chloride 109 H Carbon Dioxide 23.9 Anion Gap 8.1 BUN 4 L Creatinine 0.6 L Est GFR (CKD-EPI 2020) 118.34 Glucose 100 Calcium 8.6 Magnesium 1.8 Total Bilirubin 1.2 H AST 21 ALT 25 Alkaline Phosphatase 91 Total Protein 6.2 L Albumin 2.9 L Lipase 591 H PFSH All Active Problems Atypical chest pain (Acute) Chest pain (Acute) Sensorineural hearing loss (SNHL) of both ears (Acute) S/P BKA (below knee amputation) (Acute) Pancreatic pseudocyst (Chronic) Skin ulcer (Acute) Acute pancreatitis (Acute) Acute cholecystitis (Acute) Below-knee amputation of right lower extremity (Acute) Chest pain at rest (Acute) RADIATION DOWN HIS ARMS Tobacco use (Chronic) Medical History Acquired deformity of nail s/p nail excision and matrix ablation 11/10/19 Ankle pain right, chronic Ankle pain, left Anxiety Arthritis Arthritis FOOT/ANKLE 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 Asthma 09/15/12 Burning sensation of feet Callous ulcer REFERRED TO DERM 12/22/13 Constipation due to opioid therapy Curvature of spine S/P FIXATION WITH RODS Cyst of skin TOP OF LEFT FOOT-PAINFUL Deafness Depression with anxiety Fracture of distal phalanx of right index finger Snowblowing injury Ganglion cyst Gastritis GERD (gastroesophageal reflux disease) History of reduction of closed fracture Hyperglycemia Hyperlipidemia Hypoglycemia Insomnia Leg pain, right Lipoma Loss of taste Low back pain Low back pain associated with a spinal disorder other than radiculopathy or spinal stenosis Lung nodules Migraine Mood disorder deteriorated Neck pain Neuropathy Pain, foot, right, chronic Partial Achilles tendon tear left 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 Snowblowing injury causing partial amputation Surgical revision of amputation DOS: 08/31/18 Partial traumatic transphalangeal amputation of right ring finger Snowblowing injury causing partial amputation Surgical revision of amputation DOS: 08/31/18 Right ankle joint deformity Right leg numbness Scrotal lesion Sebaceous cyst Sensorineural hearing loss of both ears Sinus headache Sprain of unspecified ligament of left ankle, subsequent encounter (06/30/16) Testicular pain, right 11/10/12-COMES AND GOES tobacco abuse Viral warts Wart of hand Surgical History Excision, Skin Mass 2008-LUQ LIPOMA Fracture, Closed Treatment ANKLE History of back surgery History of excision of mass History of neck surgery History of spinal surgery History of surgical 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 Family History Father Alcohol abuse Essential hypertension Heart disease Neoplasm Stroke Mother Essential hypertension COPD (chronic obstructive pulmonary disease) Depression Hyperlipidemia Neoplasm Stroke Asthma SIBLING ADHD (attention deficit hyperactivity disorder) Sister No problems noted. Brother Essential hypertension Grandfather Diabetes Alcohol abuse Grandfather Brain tumor Stroke Grandmother Diabetes Grandmother Heart disease Neoplasm Cervical cancer Stroke Family History Blood disorder Neoplasm Stomach,melanoma Social History Smoking/Tobacco Use Status: Current every day Tobacco Type: cigarettes Tobacco: How many years used: 30 Second Hand Exposure: Yes Smoking risk assessment performed?: Yes Alcohol Intake: former Drug use: Never Substance use type: does not use Details: Stated 6 mos sobriety Household members: spouse Housing: apartment Number of Children: 4 Communication Needs: Hard of Hearing Do you need help understanding health information?: Rarely Pets and animals: Yes Pets and animals: cat(s) and dog(s) Sexually active: No Do you think of yourself as: straight/heterosexual Current gender identity: female What is your relationship status?: How often do you talk on the phone with friends or family?: three or more times per week Do you belong to any clubs or organized social groups?: no Panel score (0-1 are the most socially isolated patients): 2 What type of physical activity do you participate in: walking, aerobic and swimming Duration: < 15 minutes/day Mariajose/Anabaptism: No preference Special mariajose needs: No Seatbelt use: always Helmet use: No Drive intox or ride w/intox route delivery driver: No Do you feel safe at home: Yes Do you feel safe in your relationship?: Yes
[2022-07-14 11:36] VITALS: BP 105/69; PULSE 52; RESP 18; TEMP 36.6; O2SAT 96
--- NOTE | 2022-07-14 12:55 | PDOC.CMDIS ---
- If Service Date Differs Date of service: 07/14/22 Time of Service: 12:55 LACE Index Scoring Tool - Questions: Length of Stay (in days): 1 Acuity (Admit via E.D.?): Yes E.D. Visits: 9 - Answers: Total Score: 8 Risk of Readmission: Low Risk Care Management Discharge Reason for Hospitalization: Abdominal pain with atypical chest pain Discharge Plan: Cole will be discharged home with no new services. He will follow up with his community providers and plan of care and drive himself home. Patient/Family Education Needs: Review of discharge instructions, follow up plan, medications, activity, limitations and discuss Ask Me Three
== END 2022-07-14 13:42 | disposition home or self-care (01) ==
LOC: ER 07-13 00:34 → MS 07-13 06:10
PROVIDERS: Admitting Provider Family Medicine; Emergency Provider Emergency Medicine; PCP Family Medicine; Visit Provider Family Medicine
DX: K85.90 Acute pancreatitis without necrosis or infection, unspecified (principal); R07.89 Other chest pain; K86.3 Pseudocyst of pancreas; F17.210 Nicotine dependence, cigarettes, uncomplicated; I25.2 Old myocardial infarction; K21.9 Gastro-esophageal reflux disease without esophagitis; E78.5 Hyperlipidemia, unspecified; J45.909 Unspecified asthma, uncomplicated; Z20.822 Contact with and (suspected) exposure to COVID-19; Z86.711 Personal history of pulmonary embolism; Z89.511 Acquired absence of right leg below knee; Z79.899 Other long term (current) drug therapy
CPT/HCPCS: 36415; 71275; 74177; 80053; 83690; 85027; 87635; 93005; 94640; 96360; 96361; 96374; 96376; 99284; 99285; J1650; 80320; 81003; 82248; 83735; 84478; 84484; 85025; 93010; 94664; 99217; 99220; G0378; J1170; J3490

== ENCOUNTER → 2022-08-01 00:07 | Outpatient (CLI) | payer MEDICARE, MEDICAID, SELFPAY ==
--- NOTE | 2022-08-01 07:37 | DI.MRI_ITS ---
Exam(s) MR CERVICAL SPINE WO/W EXAM: MR CERVICAL SPINE WO/W CLINICAL HISTORY: neck pain, previous disc fusion,M54.2 TECHNIQUE: Multiplanar multisequence MRI of the cervical spine was performed. CONTRAST MATERIAL: IV Contrast: 16 ML of Dotarem contrast administered. COMPARISON: MR MR CERVICAL SPINE WO/W from 03/29/2021 FINDINGS: BONES: Vertebral body heights are maintained. Multilevel degenerative disc disease and cervical facet arthropathy is present. Alignment is normal. Bone marrow signal intensity is within normal limits. There again seen postsurgical changes of fusion at C5 and C6. CERVICAL CORD: Craniovertebral junction is unremarkable. The cervical cord is normal size and signal intensity. No lesion is present. SOFT TISSUES: Unremarkable. ENHANCEMENT: No suspicious enhancement identified. C2-3: No disc herniation or bulge is identified. No significant central spinal canal or neural forami nal stenosis. C3-4: Prominence of the osteophyte disc complex is present. There is mild narrowing of the central s christina canal with an AP diameter of 8 mm. Moderately severe bilateral neural foraminal stenosis is pr esent. C4-5: There is prominence of the osteophyte disc complex. There is narrowing of the central spinal c anal to 6 mm. [id number] bilateral neural foraminal stenosis is present. C5-6: Anterior cervical disc fusion is present. No significant central spinal canal or neural forami nal stenosis C6-7: Mild prominence of the osteophyte disc complex. Mild narrowing of the central spinal canal and neural foramen is seen bilaterally. C7-T1: There is prominence of the osteophyte disc complex. No significant central spinal canal steno sis is seen. Hypertrophic changes of the uncovertebral joints are seen bilaterally, right greater th an left. There is moderate right and mild left neural foraminal stenosis. IMPRESSION: Stable multilevel degenerative changes throughout the cervical spine resulting in central spinal marga l and neural foraminal stenosis as described above. DATA REPOSITORY:
[2022-08-01] MEDS: Normal Saline Flush 10 ML SYR IVP (13:33)
== END ==
PROVIDERS: PCP Family Medicine; Visit Provider Family Medicine
DX: M47.812 Spondylosis without myelopathy or radiculopathy, cervical region (principal)
CPT/HCPCS: 72156

== ENCOUNTER 2022-08-16 17:58 | Emergency (ER) | payer MEDICARE, MEDICAID, SELFPAY ==
[2022-08-16] VITALS (20 sets, daily range): BP systolic 92–120; BP diastolic 40–69; PULSE 56–61; RESP 17; TEMP 36.7; O2SAT 93–98
--- NOTE | 2022-08-16 18:30 | ED.GENADUL_ITS ---
Discharge Plan Disposition Patient Disposition: HOME Condition: Stable Discharge Details Clinical Impression: Pancreatitis Primary Care Provider: Brian Longo ED Provider: Shawna Zuniga Home Meds and New Rx's Prescriptions: Continued budesonide-formoterol [Symbicort] 80-4.5 mcg/actuation HFA aerosol inhaler 1 puff Inhalation BID Qty: 1 11RF albuterol sulfate [ProAir HFA] 90 mcg/actuation HFA aerosol inhaler 2 puff Inhalation Q6H PRN PRN (Reason: bronchospasm) Qty: 1 3RF atorvastatin 40 mg tablet 40 mg PO DAILY Qty: 90 3RF pantoprazole 40 mg tablet,delayed release (DR/EC) 40 mg PO BID Qty: 180 3RF sertraline 100 mg tablet 200 mg PO DAILY Qty: 180 3RF Rx Instructions: dose increase 04/19/21 dose increase 09/17/21 fluticasone propionate 50 mcg/actuation spray,suspension 2 spray intranasal DAILY Qty: 9.9 5RF Rx Instructions: administer into each nostril (DME) nebulizer and compressor [Comp-Air Elite Comp Neb System] 1 EACH device 1 ea Miscellaneous q 4 h prn Qty: 1 ipratropium-albuterol 0.5 mg-3 mg(2.5 mg base)/3 mL solution for nebulization 3 ml inhalation QID PRN (Reason: wheezing) Qty: 90 3RF ezetimibe [Zetia] 10 mg tablet 10 mg PO DAILY Qty: 90 3RF Trulance 3 mg tablet 3 mg PO DAILY Qty: 90 3RF Creon 12,000-38,000 -60,000 unit capsule,delayed release(DR/EC) 1 cap PO BID Qty: 60 2RF Rx Instructions: administer with meals and/or snacks acetaminophen 500 mg Tablet 1,000 mg PO PRN PRN oxycodone-acetaminophen [Percocet] 5-325 mg tablet 1 tab PO Q8H PRNQty: 8 0RF ondansetron 4 mg tablet,disintegrating 4 mg PO Q6H PRNQty: 14 1RF Discharge Instructions Instructions: Pancreatitis (ED) Additional Instructions: Please take the Percocet and Zofran as needed for pain and nausea you previously have prescribed. Follow-up with [facility] as scheduled. Follow up with primary care provider in 3-5 days. Return to ED sooner if any worsening or concerns. Increase oral fluids. Referrals: Brian Longo MD [Primary Care Provider] - 5 days Medical Decision Making 47-year-old male with a past medical history of pancreatitis reports to the ER with a chief complaint of abdominal pain and nausea which began today prior to arrival. He reports that he was vomiting up some yellow phlegm like material. He reports looser stools than normal. He reports that he was seen by [facility] and had an MRCP within the last month and is scheduled to have a stent placed. Work-up ordered including CBC, CMP, lipase, urinalysis CT abdomen pelvis. 220: Patient reevaluation, he reports feeling much better he was a lot more comfortable. I discussed lab results and CT results with him he verbalized understanding. He is awaiting scheduling a stent placed by [facility]. He does take oxycodone and Tylenol and he does have Zofran at home. He is okay taking that. We will plan to discharge patient. CT results noted below. Labs are largely at patient's baseline. Lipase is elevated 822 however it has been as high as 1200 in the past. Patient is getting worked up at [facility] for his pancreatitis and did encourage him to follow-up with them and keep his upcoming appointments. He is awaiting scheduled stent placement. Patient improved prior to discharge. This text was generated using grabHalo dictation system, please disregard any oddities of phrase or misspellings. Medical Records Medical records reviewed: Yes I reviewed the patient's medical records. Imaging Data Radiologic Study: Imaging: CT Scan Radiologist's impression: FINDINGS: Lungs: There is mild bibasilar atelectasis. Liver: Normal. No mass. Gallbladder and bile ducts: Status post cholecystectomy. Pancreas: There is a well-defined fluid density focus at the pancreatic head level extending to the neck level, 3.9 centimetres. Spleen: Normal. No splenomegaly. Adrenal glands: Normal. No mass. Kidneys and ureters: Normal. No hydronephrosis. Stomach and bowel: Unremarkable. No obstruction. No mucosal thickening. Appendix: No evidence of appendicitis. Intraperitoneal space: Containing left inguinal hernia. No free air. No significant fluid collection. Vasculature: Mild atherosclerotic change noted in the vasculature. Lymph nodes: Unremarkable. No enlarged lymph nodes. Urinary bladder: Unremarkable as visualized. Reproductive: Unremarkable as visualized. Bones/joints: Status post lumbar fusion L3-L5. Soft tissues: Unremarkable. IMPRESSION: Fluid density focus at the pancreatic head level, presumed residual pseudocyst. Cystic neoplasm not excludable. Thank you for allowing us to participate in the care of your patient. Dictated and Authenticated by: Jennifer Niño MD Lab Data Lab results reviewed: Yes I reviewed the patient's lab results. Labs: Laboratory Tests Range/Units 08/16/22 08/16/22 08/16/22 18:35 18:35 19:12 WBC (4.4-10.8) 10^3/uL 9.46 RBC (4.36-5.78) 10^6/uL 5.83 H Hgb (13.5-17.5) g/dL 16.4 Hct (40.0-50.0) % 49.8 MCV (80-95) fL 85 MCH (27.0-33.0) pg 28.1 MCHC (32.0-36.0) % 32.9 RDW (11.8-14.1) % 14.3 H Plt Count (130-400) 10^3/uL 207 MPV (8.0-11.0) fL 10.0 Immature Gran % 0.3 Neutrophils % 59.8 Lymphocytes % 34.2 Monocytes % 4.5 Eosinophils % 1.0 Basophils % 0.2 Nucleated RBC % (0.0-0.3) % 0.0 Absolute Neutrophils (1.2-6.7) 10^3/uL 5.65 Absolute Lymphocytes (1.2-3.4) 10^3/uL 3.24 Absolute Monocytes (0.1-0.8) 10^3/uL 0.43 Absolute Eosinophils (0.0-0.7) 10^3/uL 0.09 Absolute Basophils (0.0-0.2) 10^3/uL 0.02 Sodium (136-145) mmol/L 140 Potassium (3.5-5.1) mmol/L 3.3 L Chloride (98-107) mmol/L 104 Carbon Dioxide (21.0-32.0) mmol/L 32.9 H Anion Gap (3-11) mmol/L 3.1 BUN (7-18) mg/dL 7 Creatinine (0.70-1.30) mg/dL 0.8 Est GFR (CKD-EPI 2020) (mL/min/1.73m2) 108.49 Glucose (74-106) mg/dL 152 H Calcium (8.5-10.1) mg/dL 9.4 Magnesium (1.8-2.4) mg/dL 2.1 Total Bilirubin (0.2-1.0) mg/dL 1.1 H AST (15-37) U/L 20 ALT (16-63) U/L 29 Alkaline Phosphatase (46-116) U/L 119 H Total Protein (6.4-8.2) g/dL 7.7 Albumin (3.4-5.0) g/dL 4.0 Lipase (73-393) U/L 822 H Urine Color (Yellow) Yellow Urine Clarity (Clear) Clear Urine pH (5-8) 6.5 Ur Specific [place] (1.005-1.025) 1.025 Urine Protein (Negative) mg/dL Negative Urine Ketones (Negative) mg/dL Negative Urine Blood (Negative) Negative Urine Nitrite (Negative) Negative Urine Bilirubin (Negative) Negative Urine Urobilinogen (Up TO 0.2) EU/dL 0.2 Ur Leukocyte Esterase (Negative) Negative Urine Glucose (Negative) mg/dL Negative HPI General Mode of arrival: wheelchair . Date/Time Provider Initiated Documentation: 08/16/22 18:14 . Limitations to Documentation: no limitations . Information obtained by: patient, RN notes reviewed and old records reviewed . HPI Narrative: 47-year-old male with a past medical history of pancreatitis reports to the ER with a chief complaint of abdominal pain and nausea which began today prior to arrival. He reports that he was vomiting up some yellow phlegm like material. He reports looser stools than normal. He reports that he was seen by [facility] and had an MRCP within the last month and is scheduled to have a stent placed. He takes Tylenol normally is what he reports to me for pain. Other past medical history includes depression, right below-knee amputation, low back pain, gastritis he denies any alcohol use. Related Data Home Medications Medication Instructions Recorded Confirmed nebulizer and compressor (Comp-Air #1 ea 07/16/16 08/16/22 Elite Comp Neb System device) atorvastatin 40 mg tablet 40 mg PO DAILY #90 tab-caps 09/17/21 08/16/22 pantoprazole 40 mg tablet,delayed 40 mg PO BID #180 tab-caps 09/17/21 08/16/22 release sertraline 100 mg tablet 200 mg PO DAILY #180 tabs 09/17/21 08/16/22 fluticasone propionate 50 2 spray intranasal DAILY #9.9 grams 11/13/21 08/16/22 mcg/actuation nasal spray,suspension acetaminophen 500 mg tablet 1,000 mg PO PRN PRN 11/23/21 08/16/22 ipratropium 0.5 mg-albuterol 3 mg 3 ml inhalation QID PRN wheezing 12/05/21 08/16/22 (2.5 mg base)/3 mL nebulization #90 mL soln ezetimibe 10 mg tablet (Zetia) 10 mg PO DAILY #90 tab-caps 12/23/21 08/16/22 albuterol sulfate 90 mcg/actuation 2 puff inhalation Q6H PRN PRN 01/24/22 08/16/22 aerosol inhaler (ProAir HFA) bronchospasm #1 inh budesonide-formoterol HFA 80 1 puff inhalation BID ##1 01/24/22 08/16/22 mcg-4.5 mcg/actuation aerosol inhaler (Symbicort) ondansetron 4 mg disintegrating 4 mg PO Q6H PRN #14 tabs 05/30/22 08/16/22 tablet plecanatide 3 mg tablet (Trulance) 3 mg PO DAILY constipation #90 tabs 05/31/22 08/16/22 sabklf-kuszykyv-xhdctus 1 cap PO BID #60 caps 06/10/22 08/16/22 12,000-38,000-60,000 unit capsule,delayed rel (Creon) oxycodone-acetaminophen 5 mg-325 1 tab PO Q8H PRN #8 tabs 07/09/22 08/16/22 mg tablet (Percocet) Previous Rx's Medication Instructions Recorded atorvastatin 40 mg tablet 40 mg PO DAILY #90 tab-caps 09/17/21 pantoprazole 40 mg tablet,delayed 40 mg PO BID #180 tab-caps 09/17/21 release sertraline 100 mg tablet 200 mg PO DAILY #180 tabs 09/17/21 fluticasone propionate 50 2 spray intranasal DAILY #9.9 grams 11/13/21 mcg/actuation nasal spray,suspension ipratropium 0.5 mg-albuterol 3 mg 3 ml inhalation QID PRN wheezing 12/05/21 (2.5 mg base)/3 mL nebulization #90 mL soln ezetimibe 10 mg tablet (Zetia) 10 mg PO DAILY #90 tab-caps 12/23/21 albuterol sulfate 90 mcg/actuation 2 puff inhalation Q6H PRN PRN 01/24/22 aerosol inhaler (ProAir HFA) bronchospasm #1 inh budesonide-formoterol HFA 80 1 puff inhalation BID ##1 01/24/22 mcg-4.5 mcg/actuation aerosol inhaler (Symbicort) ondansetron 4 mg disintegrating 4 mg PO Q6H PRN #14 tabs 05/30/22 tablet plecanatide 3 mg tablet (Trulance) 3 mg PO DAILY constipation #90 tabs 05/31/22 hnaamo-husznqxy-oxedznf 1 cap PO BID #60 caps 06/10/22 12,000-38,000-60,000 unit capsule,delayed rel (Creon) oxycodone-acetaminophen 5 mg-325 1 tab PO Q8H PRN #8 tabs 07/09/22 mg tablet (Percocet) Allergies Allergy/AdvReac Type Severity Reaction Status Date / Time Fish Containing Products Allergy Intermediate hives Verified 08/16/22 18:10 aspirin AdvReac Intermediate epistaxis Verified 08/16/22 18:10 seafood Allergy Intermediate Hives Uncoded 08/16/22 18:10 hydrocodone-homatropine AdvReac Intermediate GI UPSET Uncoded 08/16/22 18:10 General Stated Complaint: Abd Prob DONG: 3 Review of Systems All systems reviewed & are unremarkable except as noted in HPI and below Cardiovascular Cardiovascular: Denies chest pain and Denies dyspnea Respiratory Respiratory: Denies dyspnea Gastrointestinal Gastrointestinal: Reports as per HPI, Reports abdominal pain, Reports nausea and Reports vomiting PFSH All Active Problems Pancreatitis (Chronic) Neck pain on left side (Acute) Abnormal flushing and sweating (Acute) Chest pain (Acute) Sensorineural hearing loss (SNHL) of both ears (Acute) S/P BKA (below knee amputation) (Acute) Pancreatic pseudocyst (Chronic) Skin ulcer (Acute) Acute pancreatitis (Acute) Acute cholecystitis (Acute) Below-knee amputation of right lower extremity (Acute) Chest pain at rest (Acute) RADIATION DOWN HIS ARMS Tobacco use (Chronic) Medical History Acquired deformity of nail s/p nail excision and matrix ablation 11/10/19 Ankle pain right, chronic Ankle pain, left Anxiety Arthritis Arthritis FOOT/ANKLE 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 Asthma 09/15/12 Burning sensation of feet Callous ulcer REFERRED TO DERM 12/22/13 Constipation due to opioid therapy Curvature of spine S/P FIXATION WITH RODS Cyst of skin TOP OF LEFT FOOT-PAINFUL Deafness Depression with anxiety Fracture of distal phalanx of right index finger Snowblowing injury Ganglion cyst Gastritis GERD (gastroesophageal reflux disease) History of reduction of closed fracture Hyperglycemia Hyperlipidemia Hypoglycemia Insomnia Leg pain, right Lipoma Loss of taste Low back pain Low back pain associated with a spinal disorder other than radiculopathy or spinal stenosis Lung nodules Migraine Mood disorder deteriorated Neck pain Neuropathy Pain, foot, right, chronic Partial Achilles tendon tear left 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 Snowblowing injury causing partial amputation Surgical revision of amputation DOS: 08/31/18 Partial traumatic transphalangeal amputation of right ring finger Snowblowing injury causing partial amputation Surgical revision of amputation DOS: 08/31/18 Right ankle joint deformity Right leg numbness Scrotal lesion Sebaceous cyst Sensorineural hearing loss of both ears Sinus headache Sprain of unspecified ligament of left ankle, subsequent encounter (06/30/16) Testicular pain, right 11/10/12-COMES AND GOES tobacco abuse Viral warts Wart of hand Surgical History Excision, Skin Mass 2008-LUQ LIPOMA Fracture, Closed Treatment ANKLE History of back surgery History of excision of mass History of neck surgery History of spinal surgery History of surgical 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 Family History Father Alcohol abuse Essential hypertension Heart disease Neoplasm Stroke Mother Essential hypertension COPD (chronic obstructive pulmonary disease) Depression Hyperlipidemia Neoplasm Stroke Asthma SIBLING ADHD (attention deficit hyperactivity disorder) Sister No problems noted. Brother Essential hypertension Grandfather Diabetes Alcohol abuse Grandfather Brain tumor Stroke Grandmother Diabetes Grandmother Heart disease Neoplasm Cervical cancer Stroke Family History Blood disorder Neoplasm Stomach,melanoma Social History Smoking/Tobacco Use Status: Current every day Tobacco Type: cigarettes Tobacco: How many years used: 30 Second Hand Exposure: Yes Smoking risk assessment performed?: Yes Alcohol Intake: former Drug use: Never Substance use type: does not use Details: Stated 6 mos sobriety Household members: spouse Housing: apartment Number of Children: 4 Communication Needs: Hard of Hearing Do you need help understanding health information?: Rarely Pets and animals: Yes Pets and animals: cat(s) and dog(s) Sexually active: No Do you think of yourself as: straight/heterosexual Current gender identity: female What is your relationship status?: How often do you talk on the phone with friends or family?: three or more times per week Do you belong to any clubs or organized social groups?: no Panel score (0-1 are the most socially isolated patients): 2 What type of physical activity do you participate in: walking, aerobic and swimming Duration: < 15 minutes/day Mariajose/Faith: No preference Special mariajose needs: No Seatbelt use: always Helmet use: No Drive intox or 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 Appears stated age. Normal body habitus. Head: Normocephalic, no trauma. Eyes: Pupils PERRL, Red reflex noted, EOM's intact. Eyelids symmetrical without lesions, discharge, or swelling. ENT: Bilateral TM's WNL, External ear normal to inspection, no mastoid TTP, swelling, or erythema, Nasal turbinates WNL, no nasal discharge. Normal dentition, Posterior pharynx WNL, no exudate. Chest: RRR, Normal S1, S2, distal pulses intact. Resp: Lungs clear to auscultation bilaterally, no wheezes, rales, or rhonchi. Abdomen: Generalized tenderness palpation all 4 quadrants. Nondistended. Musculoskeletal: Unable to assess gait, right below the knee amputation Skin: No suspicious rashes or lesions. Capillary refill less than 2 sec. Neurologic: Cranial nerves II-XII intact. Alert and oriented x 3. Motor: No deficits noted. Sensory: Intact bilaterally all 4 extremities. Reflexes: DTR's intact bilaterally.. Hematologic/Lymphatic: No ecchymosis, no lymphadenopathy. Course Vital Signs Vital signs: Vital Signs Temperature 36.7 C 08/16/22 18:08 Pulse 56 L 08/16/22 18:08 Respiratory Rate 17 08/16/22 18:08 Blood Pressure 120/58 L 08/16/22 18:08 Pulse Oximetry 98 08/16/22 18:08 Temperature 36.7 C 08/16/22 18:08 Temperature Source Temporal Artery Scan 08/16/22 18:08 Pulse 56 L 08/16/22 18:08 Respiratory Rate 17 08/16/22 18:08 Respiratory Effort Non-Labored 08/16/22 18:10 Blood Pressure 120/58 L 08/16/22 18:08 Pulse Oximetry 98 08/16/22 18:08 Oxygen Delivery Method Room Air 08/16/22 18:08 Oxygen Flow Rate 0 08/16/22 18:08 Pain Level 10 08/16/22 18:08
[2022-08-16 18:46] LABS: Abs Immature Grans 0.03 10^3/uL (0.0-0.06); Absolute Basophil Count 0.02 10^3/uL (0.0-0.2); Absolute Eosinophil Count 0.09 10^3/uL (0.0-0.7); Absolute Lymphocyte Count 3.24 10^3/uL (1.2-3.4); Absolute Monocyte Count 0.43 10^3/uL (0.1-0.8); Absolute Neutrophil Count 5.65 10^3/uL (1.2-6.7); Basophils % 0.2; HCT 49.8 % (40.0-50.0); HGB 16.4 g/dL (13.5-17.5); Immature Grans % 0.3; Lymphocytes % 34.2; MCH 28.1 pg (27.0-33.0); MCHC 32.9 % (32.0-36.0); MCV 85 fL (80-95); Monocytes % 4.5; Neutrophils % 59.8; Platelet Count 207 10^3/uL (130-400); RBC 5.83 10^6/uL (4.36-5.78); RDW 14.3 % (11.8-14.1); RDW-SD 44.8 fL; WBC 9.46 10^3/uL (4.4-10.8)
[2022-08-16] MEDS: Normal Saline 1,000 ML 1000 ML IV (18:46)
[2022-08-16] MEDS: Ondansetron 4 MG/2 ML VIAL IVP (18:52)
[2022-08-16] MEDS: MORPHine 10 MG/ML VIAL 4 MG IVP (18:54)
[2022-08-16 19:01] LABS: ALT 29 U/L (16-63); AST 20 U/L (15-37); Alkaline Phosphatase 119 U/L (46-116); Anion Gap 3.1 mmol/L (3-11); BUN 7 mg/dL (7-18); Bilirubin, Total 1.1 mg/dL (0.2-1.0); CO2 32.9 mmol/L (21.0-32.0); CREATININE 0.8 mg/dL (0.70-1.30); Calcium 9.4 mg/dL (8.5-10.1); Chloride 104 mmol/L (98-107); Estimated GFR 108.49 (mL/min/1.73m2); Glucose 152 mg/dL (74-106); Lipase 822 U/L (73-393); Magnesium 2.1 mg/dL (1.8-2.4); Potassium 3.3 mmol/L (3.5-5.1); Sodium 140 mmol/L (136-145); Total Protein 7.7 g/dL (6.4-8.2)
[2022-08-16 19:25] LABS: Bilirubin Negative (Negative); Blood Negative (Negative); Clarity Clear (Clear); Glucose Negative (Negative); Ketones Negative (Negative); Leukocyte Esterase Negative (Negative); Nitrite Negative (Negative); Specific Gravity 1.025 (1.005-1.025); Urobilinogen 0.2 EU/dL (Up TO 0.2); pH 6.5 (5-8)
--- NOTE | 2022-08-16 19:30 | DI.CT_ITS ---
Exam(s) CT ABDOMEN PELVIS W EXAM: CT ABDOMEN PELVIS W CLINICAL HISTORY: Hx pancreatitis, abdominal pain TECHNIQUE: Imaging Protocol: Axial computed tomography images with coronal and sagittal reformatted images were created and reviewed CONTRAST MATERIAL: Intravenous: Omnipaque 350 Contrast volume:100 mL Oral: No COMPARISON: CT CT CHEST PE ABD PELVIS W from 07/12/2022 FINDINGS: ABDOMEN: Lung Bases: There is dependent atelectasis. Liver: Normal density. No measurable mass. Portal, Superior Mesenteric, and Splenic Veins: Unremarkable. Gallbladder and Biliary Tract: Status post cholecystectomy. The common duct measures 1 cm. This is likely within normal limits given the post cholecystectomy. No choledocholithiasis is seen. Pancreas: There has been interval increase in size of the cyst in the head of the pancreas measuring 4 x 3.9 cm. Mild inflammatory changes are seen around the pancreas. Spleen: Normal. Adrenals: No masses seen. Kidneys: Normal size, contour and axis. No radiodense stones or obstructive uropathy. No masses seen. Abdominal Aorta: Abdominal portion non-dilated. Mild atherosclerosis. Bowel: No obstruction or bowel wall thickening. No evidence of appendicitis. Peritoneal Cavity: No ascites, collection or mesenteric inflammatory response. No free air. Lymph Nodes: Within normal limits. Bones: Within normal limits for the patient's age. Postsurgical changes are seen at the lumbosacral spine. Soft Tissues: There is a small fat containing left inguinal hernia. PELVIS: Bladder: Symmetric distention, no gross wall thickening. Reproductive Organs: Unremarkable as visualized. Lymph Nodes: Within normal limits. Bones: Within normal limits for the patient's age. IMPRESSION: 1. Slight interval increase in size of the pancreatic head cyst. This may represent a presumed resid ual pseudocyst. Cystic neoplasm not entirely excluded. 2. Question of mild inflammatory changes around the head of the pancreas. Acute pancreatitis cannot be excluded. Please correlate clinically. RADIATION DOSE DELIVERED: Total DLP DATA REPOSITORY: All CT scans at this facility are submitted to the National Radiology Data Registry (NRDR) Dose Index Registry (DIR) with the [employer] (ACR). RADIATION OPTIMIZATION: All CT scans at this facility use at least one of these dose optimization te chniques: automated exposure control; mA and/or kV adjustment per patient size (includes targeted exa ms where dose is matched to clinical indication); or iterative reconstruction.
[2022-08-16] MEDS: HYDROmorphone 2 MG/ML SYR 0.5 MG IVP (20:22)
[2022-08-16] MEDS: Normal Saline Flush 10 ML SYR IVP (20:24)
[2022-08-16] MEDS: Omnipaque 350 MG/ML 100 ML BTL IJ (20:51)
--- NOTE | 2022-08-16 21:56 | DI.VRAD_ITS ---
PROCEDURE INFORMATION: Exam: CT Abdomen And Pelvis With Contrast Exam date and time: 08/16/2022 8:33 PM Age: 47 years old Clinical indication: Other: HX pancreatitis, abd pain TECHNIQUE: Imaging protocol: Computed tomography of the abdomen and pelvis with contrast. Contrast material: 350; Contrast volume: 100 ml; Contrast route: INTRAVENOUS (IV); COMPARISON: MR ABDOMEN WO 05/29/2022 10:49 AM FINDINGS: Lungs: There is mild bibasilar atelectasis. Liver: Normal. No mass. Gallbladder and bile ducts: Status post cholecystectomy. Pancreas: There is a well-defined fluid density focus at the pancreatic head level extending to the neck level, 3.9 centimetres. Spleen: Normal. No splenomegaly. Adrenal glands: Normal. No mass. Kidneys and ureters: Normal. No hydronephrosis. Stomach and bowel: Unremarkable. No obstruction. No mucosal thickening. Appendix: No evidence of appendicitis. Intraperitoneal space: Containing left inguinal hernia. No free air. No significant fluid collection. Vasculature: Mild atherosclerotic change noted in the vasculature. Lymph nodes: Unremarkable. No enlarged lymph nodes. Urinary bladder: Unremarkable as visualized. Reproductive: Unremarkable as visualized. Bones/joints: Status post lumbar fusion L3-L5. Soft tissues: Unremarkable. IMPRESSION: Fluid density focus at the pancreatic head level, presumed residual pseudocyst. Cystic neoplasm not excludable. Dictated and Authenticated by: Jennifer Niño MD. Ordering:MACI Matos MD
== END 2022-08-16 22:22 | disposition home or self-care (01) ==
PROVIDERS: Emergency Provider Registered Nurse Emergency; PCP Family Medicine
DX: K85.80 Other acute pancreatitis without necrosis or infection (principal); R10.9 Unspecified abdominal pain
CPT/HCPCS: 36415; 80053; 83690; 96361; 96374; 96375; 99284; 74177; 81003; 83735; 85025; J1170; J2270; J2405; J3490

== ENCOUNTER → 2022-08-20 12:28 | Outpatient (CLI) | payer MEDICARE, MEDICAID, SELFPAY ==
--- NOTE | 2022-08-20 12:51 | DI.RAD_ITS ---
Exam(s) XR CERVICAL SPINE COMP 4-5V EXAM: XR CERVICAL SPINE COMP 4-5V CLINICAL HISTORY: CERVICALGIA-M54.2, HAD NECK MRI 08/01/22 DJD WITH FORAMINAL STENOSIS. TECHNIQUE: 2D digital imaging was performed. COMPARISON: CR XR CERVICAL SPINE COMP 4-5V from 03/12/2021 MR MR CERVICAL SPINE WO/W from 08/01/2022 FINDINGS: BONES: No fracture or destructive lesion. Anterior fusion at C5-6. Severe facet degenerative change s at C 2 3. DISKS: Severe degenerative changes C3-4, C4-5 and C6-7. Neural foraminal narrowing bilaterally at C3 -4, C4-5 and C7-T1 ALIGNMENT: Flexion at C2-3. the odontoid and atlantoaxial articulations are normal. SOFT TISSUE: No prevertebral soft tissue swelling. The lung apices are clear. Cervical collar in p lace. IMPRESSION: Stable postsurgical and degenerative changes. No acute abnormality identified. DATA REPOSITORY: RADIATION DOSE DELIVERED:
== END ==
PROVIDERS: PCP Family Medicine; Visit Provider Nurse Practitioner Family
DX: M54.2 Cervicalgia (principal); M47.812 Spondylosis without myelopathy or radiculopathy, cervical region
CPT/HCPCS: 72050

== ENCOUNTER 2022-09-03 21:49 | Inpatient (IN) | payer MEDICARE, MEDICAID, SELFPAY ==
[2022-09-03] VITALS (16 sets, daily range): BP systolic 97–110; BP diastolic 47–56; PULSE 66–82; RESP 9–23; TEMP 36.9; O2SAT 89–99
--- NOTE | 2022-09-03 21:45 | DI.CT_ITS ---
Exam(s) CT ABDOMEN PELVIS W EXAM: CT ABDOMEN PELVIS W CLINICAL HISTORY: luq pain hx pancreatitis TECHNIQUE: COMPARISON: CT CT ABDOMEN PELVIS W from 08/16/2022 FINDINGS: CT examination of the abdomen and pelvis was performed with bolus infusion of 100 cc of Omnipaque 350 . Images obtained through the lung bases are unremarkable. The liver appears normal with no evidence of a focal mass. Spleen is unremarkable in appearance.. Prior cholecystectomy noted, bile ducts are unremarkable. Pancreas again shows a cystic masslike structure in the head of the pancreas, grossly unchanged from prior examination of August 16, consistent with pseudocyst period. Adrenals appear normal bilaterally. Kidneys appear normal with no evidence of renal mass, hydronephrosis, or nephrolithiasis. Unremarkab le bladder. There is no evidence of abdominal or pelvic adenopathy. Abdominal aorta is of normal diameter and no abnormality is seen involving major visceral branches.. Appendix is normal. No evidence diverticulitis or bowel obstruction. No significant abdominal wall hernia seen. Impression: Appearance is consistent with stable pancreatic head pseudocyst, no additional new findings.. RADIATION DOSE DELIVERED: Total DLP Total DLP DATA REPOSITORY: All CT scans at this facility are submitted to the National Radiology Data Registry (NRDR) Dose Index Registry (DIR) with the [employer] (ACR). RADIATION OPTIMIZATION: All CT scans at this facility use at least one of these dose optimization te chniques: automated exposure control; mA and/or kV adjustment per patient size (includes targeted exa ms where dose is matched to clinical indication); or iterative reconstruction.
--- NOTE | 2022-09-03 21:59 | ED.GENADUL_ITS ---
Discharge Plan Disposition Patient Disposition: Admit to [facility] Condition: Stable Discharge Details Clinical Impression: Acute pancreatitis Admit Date/Time: 09/03/22 23:49 Admit Provider: Umang Waterman Attending Provider: Umang Waterman Primary Care Provider: Brian Longo ED Provider: Kun Gerard Discharge Data Discharge Date/Time-TO BE ENTERED AT DEPARTURE: 09/04/22 01:24 Medical Decision Making <Leonard Whitaker NP - Last Filed: 09/09/22 15:50> Patient presenting to the emergency department chief complaint of abdominal pain. Patient reports similar episodes in the past. He does report that he has chronic ongoing pancreatitis and is awaiting a stent placement due to aduct abnormality in the pancreas. Patient denies any fever chills but does state some nausea and dry heaving, inability to tolerate p.o. intake. Otherwise denies chest pain shortness of breath or other associated symptoms. Physical exam shows significant tenderness to epigastrium and left upper quadrant otherwise clear lung sounds normal cardiac exam. We will plan on checking labs and CT imaging to rule out acute worsening pancreatitis versus abscess. Pending results we will give patient IV fluids, Zofran, and hydromorphone. Review of labs show a elevated white count with WBC of 15.54, neutrophils of 10.07, monocytes of 21, and lymphocytes also elevated at 4.4. CMP shows a potassium of 3.4, slightly elevated total bilirubin of 1.2 which is not atypical for patient, AST is low at 14 ALT is normal alk phos is normal, negative troponin, significantly elevated lipase at 1261. Urinalysis does show high specific gravity, ketones, and blood, there is small amount of bilirubin but no findings to suggest infection. Review of CT imaging and radiologist interpretation shows Acute mild proximal pancreatitis. This is superimposed on a chronic appearing proximal pancreatic cystic structure presumably a chronic pseudocyst given the history. Lipase is elevated significantly more than it has been in the past. We will plan to consult with [facility] gastroenterology for further discussion of patient's case. Just at time of signout after I logged off my computer I did speak with [facility] who recommended admission of patient. Care of patient and recommendations were discussed with Dr. Gerard who stated he will contact hospitalist and convey recommendations along with that plan. This documentation was generated using Dragon dictation system, please disregard any oddities of phrase or misspellings. Imaging Data Radiologic Study: Attestation: I personally reviewed and interpreted this imaging study as follows: Imaging: CT Scan Radiologist's impression: FINDINGS: Lungs: Minimal dependent subsegmental atelectasis. Liver: No mass. Gallbladder and bile ducts: Cholecystectomy. Typical caliber of the CBD for a post cholecystectomy patient. Pancreas: Cystic 4 x 4 cm structure in the pancreatic head very similar to recent imaging. Atrophy of the proximal pancreatic parenchyma is similar. Minor edema layering over the proximal pancreas and the cystic structure is new since prior. No acute inflammatory changes around the tail or body. Spleen: No splenomegaly or focal lesions. Adrenal glands: No mass. Kidneys and ureters: Left kidney is chronically mildly atrophic. Normal appearance of the right kidney. No hydronephrosis bilaterally. Stomach and bowel: No obstruction. No mucosal thickening. Appendix: No evidence of appendicitis. Intraperitoneal space: No free air. No significant fluid collection. Vasculature: No abdominal aortic aneurysm. Lymph nodes: No significantly enlarged lymph nodes. Urinary bladder: Unremarkable as visualized. Reproductive: Unremarkable as visualized. Bones/joints: Postsurgical changes with posterior fixation L4 through S1. No acute fracture or subluxation. Soft tissues: No suspicious lesions. IMPRESSION: 1. Acute mild proximal pancreatitis. This is superimposed on a chronic appearing proximal pancreatic cystic structure presumably a chronic pseudocyst given the history. 2. Additional findings as described. Lab Data Lab results reviewed: Yes I reviewed the patient's lab results. <Kun Gerard DO - Last Filed: 09/07/22 07:49> Sign Out Yes HPI <Leonard Whitaker NP - Last Filed: 09/09/22 15:50> General Mode of arrival: EMS . Date/Time Provider Initiated Documentation: 09/03/22 21:49 . Limitations to Documentation: no limitations . Information obtained by: patient and RN notes reviewed . History of Present Illness 47 year old M presents to the emergency department with the chief complaint of Abdominal pain, described as severe and similar to prior episodes, with intensity rated at 10. Quality is described as sharp, and is localized to the abdomen. Patient reports no radiation. Patient started experiencing this hour(s) (13) and it has been constant. No relieving fact ors improve symptom(s), No exacerbating factors reported . Patient notes nausea/vomiting. Patient did receive the following treatments prior to arrival, none Related Data Home Medications Medication Instructions Recorded Confirmed nebulizer and compressor (Comp-Air #1 ea 07/16/16 09/07/22 Elite Comp Neb System device) atorvastatin 40 mg tablet 40 mg PO DAILY #90 tab-caps 09/17/21 09/07/22 pantoprazole 40 mg tablet,delayed 40 mg PO BID #180 tab-caps 09/17/21 09/07/22 release sertraline 100 mg tablet 200 mg PO DAILY #180 tabs 09/17/21 09/07/22 fluticasone propionate 50 2 spray intranasal DAILY #9.9 grams 11/13/21 09/07/22 mcg/actuation nasal spray,suspension acetaminophen 500 mg tablet 1,000 mg PO PRN PRN 11/23/21 09/07/22 ipratropium 0.5 mg-albuterol 3 mg 3 ml inhalation QID PRN wheezing 12/05/21 09/07/22 (2.5 mg base)/3 mL nebulization #90 mL soln ezetimibe 10 mg tablet (Zetia) 10 mg PO DAILY #90 tab-caps 12/23/21 09/07/22 albuterol sulfate 90 mcg/actuation 2 puff inhalation Q6H PRN PRN 01/24/22 09/07/22 aerosol inhaler (ProAir HFA) bronchospasm #1 inh budesonide-formoterol HFA 80 1 puff inhalation BID ##1 01/24/22 09/07/22 mcg-4.5 mcg/actuation aerosol inhaler (Symbicort) ondansetron 4 mg disintegrating 4 mg PO Q6H PRN #14 tabs 05/30/22 09/07/22 tablet plecanatide 3 mg tablet (Trulance) 3 mg PO DAILY constipation #90 tabs 05/31/22 09/07/22 yhlqfj-ywwoyjia-aplwohu 1 cap PO BID #60 caps 06/10/22 09/07/22 12,000-38,000-60,000 unit capsule,delayed rel (Creon) tamsulosin 0.4 mg capsule 0.4 mg PO DAILY #30 caps 09/05/22 09/07/22 Previous Rx's Medication Instructions Recorded atorvastatin 40 mg tablet 40 mg PO DAILY #90 tab-caps 09/17/21 pantoprazole 40 mg tablet,delayed 40 mg PO BID #180 tab-caps 09/17/21 release sertraline 100 mg tablet 200 mg PO DAILY #180 tabs 09/17/21 fluticasone propionate 50 2 spray intranasal DAILY #9.9 grams 11/13/21 mcg/actuation nasal spray,suspension ipratropium 0.5 mg-albuterol 3 mg 3 ml inhalation QID PRN wheezing 12/05/21 (2.5 mg base)/3 mL nebulization #90 mL soln ezetimibe 10 mg tablet (Zetia) 10 mg PO DAILY #90 tab-caps 12/23/21 albuterol sulfate 90 mcg/actuation 2 puff inhalation Q6H PRN PRN 01/24/22 aerosol inhaler (ProAir HFA) bronchospasm #1 inh budesonide-formoterol HFA 80 1 puff inhalation BID ##1 01/24/22 mcg-4.5 mcg/actuation aerosol inhaler (Symbicort) ondansetron 4 mg disintegrating 4 mg PO Q6H PRN #14 tabs 05/30/22 tablet plecanatide 3 mg tablet (Trulance) 3 mg PO DAILY constipation #90 tabs 05/31/22 yxmwbt-syqhnyst-koslkwc 1 cap PO BID #60 caps 06/10/22 12,000-38,000-60,000 unit capsule,delayed rel (Creon) tamsulosin 0.4 mg capsule 0.4 mg PO DAILY #30 caps 09/05/22 Allergies Allergy/AdvReac Type Severity Reaction Status Date / Time Fish Containing Products Allergy Intermediate hives Verified 09/07/22 12:24 aspirin AdvReac Intermediate epistaxis Verified 09/07/22 12:24 seafood Allergy Intermediate Hives Uncoded 09/07/22 12:24 hydrocodone-homatropine AdvReac Intermediate GI UPSET Uncoded 09/07/22 12:24 General Stated Complaint: Abd Prob DONG: 3 Review of Systems <Leonard Whitaker NP - Last Filed: 09/09/22 15:50> Constitutional Constitutional: Denies chills, Denies fever(s) and Reports poor appetite Cardiovascular Cardiovascular: Denies chest pain and Denies dyspnea Respiratory Respiratory: Denies cough and Denies dyspnea Gastrointestinal Gastrointestinal: Reports as per HPI, Reports abdominal pain, Denies melena, Denies change in bowel habits, Denies constipation, Denies diarrhea, Reports nausea and Reports vomiting Genitourinary Genitourinary: Denies hematuria, Denies difficulty urinating, Denies urinary hesitancy, Denies urinary incontinence and Denies urinary urgency Integumentary/Breasts Skin/Breast: Denies rash PFSH <Leonard Whitaker NP - Last Filed: 09/09/22 15:50> All Active Problems (Updated 09/07/22 @ 17:45 by Rolo Mijares MD) COVID-19 (Acute) Acute pancreatitis (Acute) Continuous tobacco abuse (Chronic) Chest pain at rest (Acute) RADIATION DOWN HIS ARMS Tobacco use (Chronic) Below-knee amputation of right lower extremity (Acute) Acute cholecystitis (Acute) Skin ulcer (Acute) Pancreatic pseudocyst (Chronic) S/P BKA (below knee amputation) (Acute) Sensorineural hearing loss (SNHL) of both ears (Acute) Chest pain (Acute) Abnormal flushing and sweating (Acute) Neck pain on left side (Acute) Pancreatitis (Chronic) Medical History Acquired deformity of nail s/p nail excision and matrix ablation 11/10/19 Ankle pain right, chronic Ankle pain, left Anxiety Arthritis Arthritis FOOT/ANKLE 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 Asthma 09/15/12 Burning sensation of feet Callous ulcer REFERRED TO DERM 12/22/13 Constipation due to opioid therapy Curvature of spine S/P FIXATION WITH RODS Cyst of skin TOP OF LEFT FOOT-PAINFUL Deafness Depression with anxiety Fracture of distal phalanx of right index finger Snowblowing injury Ganglion cyst Gastritis GERD (gastroesophageal reflux disease) History of reduction of closed fracture Hyperglycemia Hyperlipidemia Hypoglycemia Insomnia Leg pain, right Lipoma Loss of taste Low back pain Low back pain associated with a spinal disorder other than radiculopathy or spinal stenosis Lung nodules Migraine Mood disorder deteriorated Neck pain Neuropathy Pain, foot, right, chronic Partial Achilles tendon tear left 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 Snowblowing injury causing partial amputation Surgical revision of amputation DOS: 08/31/18 Partial traumatic transphalangeal amputation of right ring finger Snowblowing injury causing partial amputation Surgical revision of amputation DOS: 08/31/18 Right ankle joint deformity Right leg numbness Scrotal lesion Sebaceous cyst Sensorineural hearing loss of both ears Sinus headache Sprain of unspecified ligament of left ankle, subsequent encounter (06/30/16) Testicular pain, right 11/10/12-COMES AND GOES tobacco abuse Viral warts Wart of hand Surgical History Excision, Skin Mass 2008-LUQ LIPOMA Fracture, Closed Treatment ANKLE History of back surgery History of excision of mass History of neck surgery History of spinal surgery History of surgical 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 reports [place] hand [place] Hx of arthroscopic knee surgery Hx of right BKA 11/21/21 [facility] ([place] Murray) NECK SURGERY 09/19-WITH METAL PLATE Open Carpal Tunnel release 204-RIGHT Postsurgical arthrodesis status (08/22/20) rt ankle Status post carpal tunnel release Tibial fracture S/P tibial nail fixation. Family History Father Alcohol abuse Essential hypertension Heart disease Neoplasm Stroke Mother Essential hypertension COPD (chronic obstructive pulmonary disease) Depression Hyperlipidemia Neoplasm Stroke Asthma SIBLING ADHD (attention deficit hyperactivity disorder) Sister No problems noted. Brother Essential hypertension Grandfather Diabetes Alcohol abuse Grandfather Brain tumor Stroke Grandmother Diabetes Grandmother Heart disease Neoplasm Cervical cancer Stroke Family History Blood disorder Neoplasm Stomach,melanoma Social History Smoking/Tobacco Use Status: Current every day Tobacco Type: cigarettes Tobacco: How many years used: 30 Second Hand Exposure: Yes Counseling given: provider counseling Smoking risk assessment performed?: Yes Alcohol Intake: former Drug use: Never Substance use type: does not use Details: Stated 6 mos sobriety Household members: spouse Housing: apartment Number of Children: 4 Communication Needs: Hard of Hearing Do you need help understanding health information?: Rarely Pets and animals: Yes Pets and animals: cat(s) and dog(s) Sexually active: No Do you think of yourself as: straight/heterosexual Current gender identity: female What is your relationship status?: How often do you talk on the phone with friends or family?: three or more times per week Do you belong to any clubs or organized social groups?: no Panel score (0-1 are the most socially isolated patients): 2 What type of physical activity do you participate in: walking, aerobic and swimming Duration: < 15 minutes/day Mariajose/Adventist: No preference Special mariajose needs: No Seatbelt use: always Helmet use: No 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 Do you feel safe at home: Yes Do you feel safe in your relationship?: Yes Exam <Leonard Whitaker NP - Last Filed: 09/09/22 15:50> Const General: cooperative Orientation: alert, awake and oriented x3 Resp Effort & Inspection: normal respiratory effort and able to speak in complete sentences Auscultation: clear to auscultation bilaterally Cardio Rate: regular rate Rhythm: regular rhythm Heart Sounds: S1 normal and S2 normal GI Palpation: soft, guarding in the LUQ, no masses and tender in the epigastrum and in the LUQ Auscultation: normal bowel sounds Back/Spine/Pelvis Back: no CVA tenderness Neuro General: patient alert, patient awake, patient oriented x3, gait normal and moves all extremities Course <Leonard Whitaker NP - Last Filed: 09/09/22 15:50> Vital Signs Vital signs: Vital Signs Temperature 36.9 C 09/03/22 21:52 Pulse 80 09/03/22 21:52 Respiratory Rate 16 09/03/22 21:52 Pulse Oximetry 99 09/03/22 21:52 Temperature 36.9 C 09/03/22 21:52 Pulse 80 09/03/22 21:52 Respiratory Rate 16 09/03/22 21:52 Respiratory Effort 09/03/22 21:52 Pulse Oximetry 99 09/03/22 21:52 Oxygen Delivery Method Room Air 09/03/22 21:52 Oxygen Flow Rate 0 09/03/22 21:52 Pain Level 10 09/03/22 21:52 Sign Out <Leonard Whitaker NP - Last Filed: 09/09/22 15:50> Sign Out Data: Sign Out Comment: Patient pending consult with gastroenterology at [facility] for elevated white count, elevated lipase, and stable CT findings. Patient continues to endorse significant amount of pain and discomfort. Last updated by Leonard Whitaker NP at 09/03/22 23:33
[2022-09-03] MEDS: Normal Saline - Diluent 50 ML VIAL IJ (22:09)
[2022-09-03] MEDS: Omnipaque 350 MG/ML 100 ML BTL IJ (22:09)
[2022-09-03 22:10] LABS: Lactate 0.7 mmol/L (0.6-1.4)
[2022-09-03] MEDS: Normal Saline 1,000 ML 1000 ML IV (22:10)
[2022-09-03] MEDS: Ondansetron 4 MG/2 ML VIAL IVP (22:10)
[2022-09-03] MEDS: Normal Saline Flush 10 ML SYR IVP (22:10)
[2022-09-03 22:12] LABS: Abs Immature Grans 0.06 10^3/uL (0.0-0.06); Absolute Eosinophil Count 0.11 10^3/uL (0.0-0.7); Absolute Monocyte Count 0.81 10^3/uL (0.1-0.8); Absolute Neutrophil Count 10.07 10^3/uL (1.2-6.7); Basophils % 0.3; Eosinophils % 0.7; HCT 47.5 % (40.0-50.0); HGB 15.8 g/dL (13.5-17.5); Immature Grans % 0.4; Lymphocytes % 28.6; MCH 27.9 pg (27.0-33.0); MCHC 33.3 % (32.0-36.0); MCV 84 fL (80-95); MPV 9.5 fL (8.0-11.0); Monocytes % 5.2; Neutrophils % 64.8; Platelet Count 209 10^3/uL (130-400); RBC 5.66 10^6/uL (4.36-5.78); RDW 14.6 % (11.8-14.1); WBC 15.54 10^3/uL (4.4-10.8)
[2022-09-03] MEDS: HYDROmorphone 2 MG/ML SYR 1 MG IVP (22:15)
[2022-09-03 22:18] LABS: Absolute Basophil Count 0.05 10^3/uL (0.0-0.2); Absolute Lymphocyte Count 4.44 10^3/uL (1.2-3.4)
[2022-09-03 22:34] LABS: ALT 34 U/L (16-63); AST 14 U/L (15-37); Albumin 3.6 g/dL (3.4-5.0); Alkaline Phosphatase 114 U/L (46-116); Anion Gap 7.2 mmol/L (3-11); BUN 12 mg/dL (7-18); Bilirubin, Total 1.2 mg/dL (0.2-1.0); CO2 29.8 mmol/L (21.0-32.0); CREATININE 0.8 mg/dL (0.70-1.30); Chloride 104 mmol/L (98-107); Estimated GFR 108.49 (mL/min/1.73m2); Glucose 116 mg/dL (74-106); Potassium 3.4 mmol/L (3.5-5.1); Sodium 141 mmol/L (136-145); Total Protein 7.2 g/dL (6.4-8.2); Troponin I < 50 ng/L (<or=60)
[2022-09-03 22:34] LABS: Bilirubin Small (Negative); Blood Large (Negative); Clarity Clear (Clear); Glucose Negative (Negative); Ketones Trace mg/dL (Negative); Leukocyte Esterase Negative (Negative); Nitrite Negative (Negative); Specific Gravity >= 1.030 (1.005-1.025); Urobilinogen 0.2 EU/dL (Up TO 0.2); pH 5.5 (5-8)
[2022-09-03 22:46] LABS: Lipase 1261 U/L (73-393)
[2022-09-03 22:47] LABS: Bacteria Rare HPF (Negative); Crystals Few Calcium Oxalate HPF (Negative); Epithelial Cells Few HPF (Negative); Mucus Trace (Negative)
[2022-09-03 22:48] LABS: C & S Indicated? No; Casts 5-10 Hyaline LPF (Negative)
--- NOTE | 2022-09-03 22:49 | DI.VRAD_ITS ---
PROCEDURE INFORMATION: Exam: CT Abdomen And Pelvis With Contrast Exam date and time: 09/03/2022 22:07 Age: 47 years old Clinical indication: Other: Luq pain, history of pancreatitis TECHNIQUE: Imaging protocol: Computed tomography of the abdomen and pelvis with contrast. Contrast material: 350; Contrast volume: 100 ml; Contrast route: INTRAVENOUS (IV); COMPARISON: CT ABDOMEN PELVIS W 08/16/2022 20:41 FINDINGS: Lungs: Minimal dependent subsegmental atelectasis. Liver: No mass. Gallbladder and bile ducts: Cholecystectomy. Typical caliber of the CBD for a post cholecystectomy patient. Pancreas: Cystic 4 x 4 cm structure in the pancreatic head very similar to recent imaging. Atrophy of the proximal pancreatic parenchyma is similar. Minor edema layering over the proximal pancreas and the cystic structure is new since prior. No acute inflammatory changes around the tail or body. Spleen: No splenomegaly or focal lesions. Adrenal glands: No mass. Kidneys and ureters: Left kidney is chronically mildly atrophic. Normal appearance of the right kidney. No hydronephrosis bilaterally. Stomach and bowel: No obstruction. No mucosal thickening. Appendix: No evidence of appendicitis. Intraperitoneal space: No free air. No significant fluid collection. Vasculature: No abdominal aortic aneurysm. Lymph nodes: No significantly enlarged lymph nodes. Urinary bladder: Unremarkable as visualized. Reproductive: Unremarkable as visualized. Bones/joints: Postsurgical changes with posterior fixation L4 through S1. No acute fracture or subluxation. Soft tissues: No suspicious lesions. IMPRESSION: 1. Acute mild proximal pancreatitis. This is superimposed on a chronic appearing proximal pancreatic cystic structure presumably a chronic pseudocyst given the history. 2. Additional findings as described. Dictated and Authenticated by: Susanna Yeung MD. Ordering:MARYANNE Valle MD
[2022-09-03] MEDS: MORPHine 10 MG/ML VIAL 6 MG IVP (23:21)
[2022-09-04] VITALS (24 sets, daily range): BP systolic 93–111; BP diastolic 43–64; PULSE 56–81; RESP 0–28; TEMP 36–37; O2SAT 2–98
--- NOTE | 2022-09-04 00:12 | HPE_ITS ---
Date of service: 09/04/22 Time of Service: 00:13 Assessment and Plan Assessment and plan (1) Acute pancreatitis: Start date: 09/04/22 Start time: 06:42 Status: Acute Assessment and plan: This is a 47-year-old gentleman who has recurrent pancreatitis and on supplements for pancreatic enzymes over this last year after what he states was a gallstone pancreatitis complicated by pancreatic duct stenosis awaiting interv ention with pancreatic duct stenting. He does have a pseudocyst. He does not have fever but presents with increasing pain with increased lipase and elevated WBC with concerns on imaging for worsening pancreatitis and possible infectious process with pseudocyst. Patient was admitted for IV hydration, bowel rest with pain control and IV Zosyn. If he becomes complicated [facility] will be called for robles kevin. He is established with that institution. He is a full code. (2) Pancreatic pseudocyst: Start date: 09/04/22 Status: Chronic Assessment and plan: Pseudocyst as complication of current pancreatitis with patient possibly having infectious process with this presentation. Zosyn IV as mentioned. (3) Hypokalemia: Start date: 09/04/22 Status: Acute Assessment and plan: Mild with IV repletion as patient is hydrated. Trend labs. (4) Continuous tobacco abuse: Status: Chronic Assessment and plan: Nicotrol inhalers with patient stating that NicoDerm was not effective in the past. Patient would not smoke while in the hospital. Advised long-term cessation. History of Present Illness History of Present Illness Chief Complaint: Abdominal pain Narrative: This is a 47-year-old woman who had gallstone pancreatitis just over a year ago at which she had a cholecystectomy but then began to have chronic and recurrent episodes of pancreatitis with pseudocyst formation. He does see [facility] for care and is having a planned pancreatic duct stent within the next week. [facility] did not have a bed available and wanted him kept at this hospital for treatment of his acute process. He presents to the ED with abdominal pain which was similar to his previous episodes of pancreatitis and his lipase was elevated at 1261 as well as elevated WBC at about 16,000. He had no fever or chills but did have some slight increased pain and nausea with attempting to eat. He had negative troponins and no complaints of chest pain. He is a smoker. He denies any alcohol use and denies any IV drug use. Urinalysis was abnormal but did not suggest UTI. Because the possibility of infection in his pseudocyst the patient was admitted for IV antibiotic therapy and pain control. He also be on bowel rest with IV fluids with slight low potassium being replaced with IV fluids. He is a full code. Review of Systems Narrative: 13 point review of systems otherwise unrevealing or stable. [facility] All Active Problems (Updated 09/04/22 @ 06:46 by Umang Waterman) Continuous tobacco abuse (Chronic) Hypokalemia (Acute) Chest pain at rest (Acute) RADIATION DOWN HIS ARMS Tobacco use (Chronic) Below-knee amputation of right lower extremity (Acute) Acute cholecystitis (Acute) Acute pancreatitis (Acute) Skin ulcer (Acute) Pancreatic pseudocyst (Chronic) S/P BKA (below knee amputation) (Acute) Sensorineural hearing loss (SNHL) of both ears (Acute) Chest pain (Acute) Abnormal flushing and sweating (Acute) Neck pain on left side (Acute) Pancreatitis (Chronic) Medical History Acquired deformity of nail s/p nail excision and matrix ablation 11/10/19 Ankle pain right, chronic Ankle pain, left Anxiety Arthritis Arthritis FOOT/ANKLE 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 Asthma 09/15/12 Burning sensation of feet Callous ulcer REFERRED TO DERM 12/22/13 Constipation due to opioid therapy Curvature of spine S/P FIXATION WITH RODS Cyst of skin TOP OF LEFT FOOT-PAINFUL Deafness Depression with anxiety Fracture of distal phalanx of right index finger Snowblowing injury Ganglion cyst Gastritis GERD (gastroesophageal reflux disease) History of reduction of closed fracture Hyperglycemia Hyperlipidemia Hypoglycemia Insomnia Leg pain, right Lipoma Loss of taste Low back pain Low back pain associated with a spinal disorder other than radiculopathy or spinal stenosis Lung nodules Migraine Mood disorder deteriorated Neck pain Neuropathy Pain, foot, right, chronic Partial Achilles tendon tear left 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 Snowblowing injury causing partial amputation Surgical revision of amputation DOS: 08/31/18 Partial traumatic transphalangeal amputation of right ring finger Snowblowing injury causing partial amputation Surgical revision of amputation DOS: 08/31/18 Right ankle joint deformity Right leg numbness Scrotal lesion Sebaceous cyst Sensorineural hearing loss of both ears Sinus headache Sprain of unspecified ligament of left ankle, subsequent encounter (06/30/16) Testicular pain, right 11/10/12-COMES AND GOES tobacco abuse Viral warts Wart of hand Surgical History Excision, Skin Mass 2008-LUQ LIPOMA Fracture, Closed Treatment ANKLE History of back surgery History of excision of mass History of neck surgery History of spinal surgery History of surgical 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 reports putting hand in wharfinger chief Hx of arthroscopic knee surgery Hx of right BKA 11/21/21 [facility] (Dr Murray) NECK SURGERY 09/19-WITH METAL PLATE Open Carpal Tunnel release 204-RIGHT Postsurgical arthrodesis status (08/22/20) rt ankle Status post carpal tunnel release Tibial fracture S/P tibial nail fixation. Family History Father Alcohol abuse Essential hypertension Heart disease Neoplasm Stroke Mother Essential hypertension COPD (chronic obstructive pulmonary disease) Depression Hyperlipidemia Neoplasm Stroke Asthma [place] ADHD (attention deficit hyperactivity disorder) Sister No problems noted. Brother Essential hypertension Grandfather Diabetes Alcohol abuse Grandfather Brain tumor Stroke Grandmother Diabetes Grandmother Heart disease Neoplasm Cervical cancer Stroke Family History Blood disorder Neoplasm Stomach,melanoma Social History Smoking/Tobacco Use Status: Current every day Tobacco Type: cigarettes Tobacco: How many years used: 30 Second Hand Exposure: Yes Counseling given: provider counseling Smoking risk assessment performed?: Yes Alcohol Intake: former Drug use: Never Substance use type: does not use Details: Stated 6 mos sobriety Household members: spouse Housing: apartment Number of Children: 4 Communication Needs: Hard of Hearing Do you need help understanding health information?: Rarely Pets and animals: Yes Pets and animals: cat(s) and dog(s) Sexually active: No Do you think of yourself as: straight/heterosexual Current gender identity: female What is your relationship status?: How often do you talk on the phone with friends or family?: three or more times per week Do you belong to any clubs or organized social groups?: no Panel score (0-1 are the most socially isolated patients): 2 What type of physical activity do you participate in: walking, aerobic and swimming Duration: < 15 minutes/day Mariajose/Anabaptist: No preference Special mariajose needs: No Seatbelt use: always Helmet use: No Drive intox or ride w/intox driver supervisor: No Do you feel safe at home: Yes Do you feel safe in your relationship?: Yes Meds Allergies and Home Medications Allergies Allergy/AdvReac Type Severity Reaction Status Date / Time Fish Containing Products Allergy Intermediate hives Verified 09/03/22 21:57 aspirin AdvReac Intermediate epistaxis Verified 09/03/22 21:57 seafood Allergy Intermediate Hives Uncoded 09/03/22 21:57 hydrocodone-homatropine AdvReac Intermediate GI UPSET Uncoded 09/03/22 21:57 Home Medications Medication Instructions Recorded Confirmed Type nebulizer and compressor (Comp-Air #1 ea 07/16/16 09/03/22 History Elite Comp Neb System device) atorvastatin 40 mg tablet 40 mg PO DAILY #90 tab-caps 09/17/21 09/03/22 Rx pantoprazole 40 mg tablet,delayed 40 mg PO BID #180 tab-caps 09/17/21 09/03/22 Rx release sertraline 100 mg tablet 200 mg PO DAILY #180 tabs 09/17/21 09/03/22 Rx fluticasone propionate 50 2 spray intranasal DAILY #9.9 grams 11/13/21 09/03/22 Rx mcg/actuation nasal spray,suspension acetaminophen 500 mg tablet 1,000 mg PO PRN PRN 11/23/21 09/03/22 History ipratropium 0.5 mg-albuterol 3 mg 3 ml inhalation QID PRN wheezing 12/05/21 09/03/22 Rx (2.5 mg base)/3 mL nebulization #90 mL soln ezetimibe 10 mg tablet (Zetia) 10 mg PO DAILY #90 tab-caps 12/23/21 09/03/22 Rx albuterol sulfate 90 mcg/actuation 2 puff inhalation Q6H PRN PRN 01/24/22 09/03/22 Rx aerosol inhaler (ProAir HFA) bronchospasm #1 inh budesonide-formoterol HFA 80 1 puff inhalation BID ##1 01/24/22 09/03/22 Rx mcg-4.5 mcg/actuation aerosol inhaler (Symbicort) ondansetron 4 mg disintegrating 4 mg PO Q6H PRN #14 tabs 05/30/22 09/03/22 Rx tablet plecanatide 3 mg tablet (Trulance) 3 mg PO DAILY constipation #90 tabs 05/31/22 09/03/22 Rx pvmvsi-isushxhg-tuziqnn 1 cap PO BID #60 caps 06/10/22 09/03/22 Rx 12,000-38,000-60,000 unit capsule,delayed rel (Creon) Exam Narrative Exam Narrative: General: Patient appears older than stated age, flattened affect but in no acute distress. He is sitting up in bed and is alert and oriented x3. HEENT: Normocephalic, unkempt avery and long hair, eyes with pupils equal and reactive to light symmetrically, extraocular movement tact and sclera anicteric. Oropharynx with moist mucosa and poor dentition. Neck: Supple without JVD. Back: Stooped posture without CVA tenderness. Lungs: Bronchovesicular breath sounds diffusely with no focalized rales or rhonchi but occasional upper airway noise with inspiration. No expiratory wheeze. Heart: Regular rate and rhythm with no murmurs gallops appreciated. Abdomen: Slightly protuberant, tender to palpation of the upper abdomen with guarding especially over the epigastrium. Not able to palpate liver and spleen with guarding. Bowel sounds positive and hyperactive in all quadrants. Genitalia/rectal: Exam deferred. Extremities: Right BKA with no swelling over both lower extremities. No cyanosis or clubbing. Fair capillary refill. Skin: Multiple tattoos, normal color otherwise, warm and dry. Neuro: Cranial nerves II through XII grossly intact, no focalized motor deficits. No tremor. Psych: Flattened affect but normal mood. No abnormal thought processes. Remote and recent memory grossly intact. Results Imaging Imaging Studies: Exam: CT Abdomen And Pelvis With Contrast Exam date and time: 09/03/2022 22:07 Age: 47 years old Clinical indication: Other: Luq pain, history of pancreatitis TECHNIQUE: Imaging protocol: Computed tomography of the abdomen and pelvis with contrast. Contrast material: 350; Contrast volume: 100 ml; Contrast route: INTRAVENOUS (IV);? COMPARISON: CT ABDOMEN PELVIS W 08/16/2022 20:41 FINDINGS: Lungs: Minimal dependent subsegmental atelectasis. Liver: No mass. Gallbladder and bile ducts: Cholecystectomy. Typical caliber of the CBD for a post cholecystectomy patient. Pancreas: Cystic 4 x 4 cm structure in the pancreatic head very similar to recent imaging. Atrophy of the proximal pancreatic parenchyma is similar. Minor edema layering over the proximal pancreas and the cystic structure is new since prior. No acute inflammatory changes around the tail or body. Spleen: No splenomegaly or focal lesions. Adrenal glands: No mass. Kidneys and ureters: Left kidney is chronically mildly atrophic. Normal appearance of the right kidney. No hydronephrosis bilaterally. Stomach and bowel: No obstruction. No mucosal thickening. Appendix: No evidence of appendicitis. Intraperitoneal space: No free air. No significant fluid collection. Vasculature: No abdominal aortic aneurysm. Lymph nodes: No significantly enlarged lymph nodes. Urinary bladder: Unremarkable as visualized. Reproductive: Unremarkable as visualized. Bones/joints: Postsurgical changes with posterior fixation L4 through S1. No acute fracture or subluxation. Soft tissues: No suspicious lesions.? IMPRESSION: 1. Acute mild proximal pancreatitis.? This is superimposed on a chronic appearing proximal pancreatic cystic structure presumably a chronic pseudocyst given the history. 2. Additional findings as described. Labs Result diagrams: 09/03/22 22:05 09/03/22 22:05 Labs: Laboratory Results - last 24 hr 09/03/22 09/03/22 09/03/22 22:05 22:05 22:05 WBC RBC Hgb Hct MCV MCH MCHC RDW Plt Count MPV Immature Gran % Neutrophils % Lymphocytes % Monocytes % Eosinophils % Basophils % Nucleated RBC % Absolute Neutrophils Absolute Lymphocytes Absolute Monocytes Absolute Eosinophils Absolute Basophils VBG Lactate 0.7 Sodium 141 Potassium 3.4 L Chloride 104 Carbon Dioxide 29.8 Anion Gap 7.2 BUN 12 Creatinine 0.8 Est GFR (CKD-EPI 2020) 108.49 Glucose 116 H Calcium 9.0 Magnesium 2.0 Total Bilirubin 1.2 H AST 14 L ALT 34 Alkaline Phosphatase 114 Troponin I < 50 Total Protein 7.2 Albumin 3.6 Lipase 1261 H Urine Color Urine Clarity Urine pH Ur Specific [place] Urine Protein Urine Ketones Urine Blood Urine Nitrite Urine Bilirubin Urine Urobilinogen Ur Leukocyte Esterase Urine RBC Urine WBC Ur Epithelial Cells Urine Crystals Urine Bacteria Urine Casts Urine Mucus Ur Culture Indicated? Urine Glucose 09/03/22 09/03/22 22:05 22:30 WBC 15.54 H RBC 5.66 Hgb 15.8 Hct 47.5 MCV 84 MCH 27.9 MCHC 33.3 RDW 14.6 H Plt Count 209 MPV 9.5 Immature Gran % 0.4 Neutrophils % 64.8 Lymphocytes % 28.6 Monocytes % 5.2 Eosinophils % 0.7 Basophils % 0.3 Nucleated RBC % 0.0 Absolute Neutrophils 10.07 H Absolute Lymphocytes 4.44 H Absolute Monocytes 0.81 H Absolute Eosinophils 0.11 Absolute Basophils 0.05 VBG Lactate Sodium Potassium Chloride Carbon Dioxide Anion Gap BUN Creatinine Est GFR (CKD-EPI 2020) Glucose Calcium Magnesium Total Bilirubin AST ALT Alkaline Phosphatase Troponin I Total Protein Albumin Lipase Urine Color Yellow Urine Clarity Clear Urine pH 5.5 Ur Specific [place] >= 1.030 H Urine Protein 100 H Urine Ketones Trace H Urine Blood Large H Urine Nitrite Negative Urine Bilirubin Small H Urine Urobilinogen 0.2 Ur Leukocyte Esterase Negative Urine RBC 3-5 H Urine WBC 3-5 Ur Epithelial Cells Few Urine Crystals Few Calcium Oxalate Urine Bacteria Rare Urine Casts 5-10 Hyaline Urine Mucus Trace Ur Culture Indicated? No Urine Glucose Negative Last Vital Signs Temp 36.9 C 09/03/22 21:52 Pulse 80 09/03/22 21:52 Resp 16 09/03/22 21:52 Pulse Ox 99 09/03/22 21:52
[2022-09-04 00:16] LABS: Source Nasal/Nares
[2022-09-04] MEDS: PIPERACILLIN/TAZO 4.5 GM in Normal Saline 100 ML IVPB ×2 (00:20→03:53)
[2022-09-04 00:46] LABS: COVID-19 PCR Negative (Negative)
--- NOTE | 2022-09-04 00:51 | NUR.NOTE ---
pH 8 to 9.Nursing Note:
[2022-09-04] MEDS: MORPHine 4 MG/ML SYR IVP ×2 (01:53→07:32)
[2022-09-04] MEDS: Normal Saline Flush 10 ML SYR IVP ×3 (02:01→13:15)
[2022-09-04] MEDS: POTASSIUM CHLORIDE/0.9% NACL 1,000 ML 125 MEQ IV ×2 (03:17→11:20)
[2022-09-04] MEDS: Heparin 5,000 UNITS/ML VIAL 5000 UNITS SC ×3 (06:07→21:13)
[2022-09-04 06:27] LABS: Abs Immature Grans 0.05 10^3/uL (0.0-0.06); Absolute Basophil Count 0.02 10^3/uL (0.0-0.2); Absolute Eosinophil Count 0.09 10^3/uL (0.0-0.7); Absolute Lymphocyte Count 4.22 10^3/uL (1.2-3.4); Absolute Monocyte Count 0.62 10^3/uL (0.1-0.8); Absolute Neutrophil Count 5.95 10^3/uL (1.2-6.7); Basophils % 0.2; Eosinophils % 0.8; HGB 14.5 g/dL (13.5-17.5); Immature Grans % 0.5; Lymphocytes % 38.5; MCV 85 fL (80-95); MPV 9.6 fL (8.0-11.0); Monocytes % 5.7; Neutrophils % 54.3; Platelet Count 200 10^3/uL (130-400); RBC 5.18 10^6/uL (4.36-5.78); RDW 15.2 % (11.8-14.1); RDW-SD 47.3 fL; WBC 10.95 10^3/uL (4.4-10.8)
[2022-09-04 06:44] LABS: INR 1.1 (0.9-1.1); Prothrombin Time 10.8 sec (9.3-11.0)
[2022-09-04 06:54] LABS: ALT 26 U/L (16-63); AST 12 U/L (15-37); Albumin 3.1 g/dL (3.4-5.0); Alkaline Phosphatase 98 U/L (46-116); Anion Gap 6.6 mmol/L (3-11); BUN 12 mg/dL (7-18); Bilirubin, Total 1.3 mg/dL (0.2-1.0); CO2 28.4 mmol/L (21.0-32.0); CREATININE 0.9 mg/dL (0.70-1.30); Calcium 8.5 mg/dL (8.5-10.1); Chloride 107 mmol/L (98-107); Glucose 93 mg/dL (74-106); Lipase 750 U/L (73-393); Potassium 3.8 mmol/L (3.5-5.1); Sodium 142 mmol/L (136-145); Total Protein 6.1 g/dL (6.4-8.2)
[2022-09-04] MEDS: Pantoprazole 40 MG TABCR PO ×2 (07:51→21:12)
[2022-09-04] MEDS: Sertraline 100 MG TAB 200 MG PO (07:51)
[2022-09-04] MEDS: Atorvastatin 40 MG TAB PO (07:52)
[2022-09-04] MEDS: Ezetimibe 10 MG TAB PO (07:52)
[2022-09-04] MEDS: Budesonide/Formoterol 80/4.5 6.9 GM 60 PUFF INH IH ×2 (08:00→19:35)
[2022-09-04] MEDS: Ondansetron O.D.T. 4 MG TABEF PO (08:20)
[2022-09-04] MEDS: IMIPENEM/CILASTATIN 500 MG in Normal Saline 100 ML 200 MG IVPB (08:57)
--- NOTE | 2022-09-04 09:36 | PDOC.CMIN ---
- If Service Date Differs Date of service: 09/04/22 Time of Service: 09:36 Care Management Initial Assess REASON FOR HOSPITALIZATION:: Acute Pancreatitis with pseudocyst PAST MEDICAL HISTORY/PAST SURGICAL HISTORY:: All Active Problems. Continuous tobacco abuse (Chronic). Hypokalemia (Acute). Chest pain at rest (Acute). RADIATION DOWN HIS ARMS. Tobacco use (Chronic). Below-knee amputation of right lower extremity (Acute). Acute cholecystitis (Acute). Acute pancreatitis (Acute). Skin ulcer (Acute). Pancreatic pseudocyst (Chronic). S/P BKA (below knee amputation) (Acute). Sensorineural hearing loss (SNHL) of both ears (Acute). Chest pain (Acute). Abnormal flushing and sweating (Acute). Neck pain on left side (Acute). Pancreatitis (Chronic). Medical History. Acquired deformity of nail. s/p nail excision and matrix ablation 11/10/19. Ankle pain. right, chronic. Ankle pain, left. Anxiety. Arthritis. Arthritis. FOOT/ANKLE. Arthritis of right ankle. Arthritis of right subtalar joint. Asthma. 09/15/12. Burning sensation of feet. Callous ulcer. REFERRED TO DERM 12/22/13. Constipation due to opioid therapy. Curvature of spine. S/P FIXATION WITH RODS. Cyst of skin. TOP OF LEFT FOOT-PAINFUL. Deafness. Depression with anxiety. Fracture of distal phalanx of right index finger. Snowblowing injury. Ganglion cyst. Gastritis. GERD (gastroesophageal reflux disease). History of reduction of closed fracture. Hyperglycemia. Hyperlipidemia. Hypoglycemia. Insomnia. Leg pain, right. Lipoma. Loss of taste. Low back pain. Low back pain associated with a spinal disorder other than radiculopathy or spinal stenosis. Lung nodules. Migraine. Mood disorder. deteriorated. Neck pain. Neuropathy. Pain, foot, right, chronic. Partial Achilles tendon tear. left. 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. Snowblowing injury causing partial amputation. Surgical revision of amputation. DOS: 08/31/18. Partial traumatic transphalangeal amputation of right ring finger. Snowblowing injury causing partial amputation. Surgical revision of amputation. DOS: 08/31/18. Right ankle joint deformity. Right leg numbness. Scrotal lesion. Sebaceous cyst. Sensorineural hearing loss of both ears. Sinus headache. Sprain of unspecified ligament of left ankle, subsequent encounter (06/30/16). Testicular pain, right. 11/10/12-COMES AND GOES. tobacco abuse. Viral warts. Wart of hand. Surgical History. Excision, Skin Mass. 2009-LUQ LIPOMA. Fracture, Closed Treatment. ANKLE. History of back surgery. History of excision of mass. History of neck surgery. History of spinal surgery. History of surgical amputation of finger of right hand. pt. reports putting hand in neuropsychology division chief. Hx of arthroscopic knee surgery. Hx of right BKA. [place] [facility] [place] NECK SURGERY. 09/19-WITH METAL PLATE. Open Carpal Tunnel release. 204-RIGHT. Postsurgical arthrodesis status (08/22/20). rt ankle. Status post carpal tunnel release. Tibial fracture. S/P tibial nail fixation. PREVIOUS FUNCTIONAL STATUS/SOCIAL/FAMILY SUPPORTS:: Cole lives in [place] with his Kendra and an elderly gentleman. He has 2 children, one lives in [place] and the other is in [place], [place] He is close to his children and identifies them as a source of support. Cole also has 2 step children that he is not allowed to have contact with. He is disabled and does not drive, although his does and can transport him as needed. CURRENT FUNCTIONAL STATUS:: Cole was lying in bed when CM met with him. He reported that he is doing ok today, but is tired. He stated that he is able to have sips of water, but he is not able to eat food today. He stated that things are going ok at home, and he remains independent. CM will continue to follow. ADVANCE DIRECTIVES:: on file. Kendra [facility] Has patient been provided with info about the portal/API?: Yes Did the patient sign up for the portal?: Yes (active) CODE STATUS:: Full Code INSURANCE COVERAGE / FINANCIAL ISSUES:: [facility] CURRENT HOME/COMMUNITY SERVICES/EQUIPMENT:: no services but Cole is on disability. PRIMARY CARE PHYSICIAN:: Brian Longo POTENTIAL DISCHARGE NEEDS:: follow up with PCP PATIENT/FAMILY EDUCATION NEEDS:: Review of discharge instructions, follow up plan, medications, activity, limitations and discuss Ask Me Three ANTICIPATED BARRIERS TO DISCHARGE:: none TRANSPORTATION:: Via private vehicle by Kendra PLAN:: Anticipate [place] will return home once medically cleared. His spouse, Kendra, will drive him home via private vehicle. He will follow up with his PCP and discharge plan of care. CM will continue to follow.
[2022-09-04] MEDS: Fluticasone NASAL SPRAY 16 GM BTL NS (09:40)
[2022-09-04 12:08] LABS: Lab Add On Test DONE
[2022-09-04 12:21] LABS: C-Reactive Protein 1.18 mg/dL (0.0-0.3)
[2022-09-04 12:38] LABS: Procalcitonin < 0.1 ng/mL
--- NOTE | 2022-09-04 12:39 | PGE_ITS ---
Date of Service Date of service: 09/04/22 Time of Service: 12:39 Subjective Subjective Interval history since last seen: Patient seen in brief follow up. Reports ongoing nausea and vomiting x 1. Reports constipation. Retaining urine. Vinson is being inserted. Reports heartburn. Refuses [place]. Even taking sips of water makes the gut hurt. Reviewed [facility] recommendations: no abx unless infection confirmed. Procalcitonin negative. CT appearance stable and not suggestive of infection. Abx d/c'ed. Needs an aggressive bowel regimen. VT in 2 days. Encouraged IS. Changed IVF to D5LR+K. NPO. Trend CRP, procalcitonin, LFTs. Objective Last Vital Signs Temp 36.9 C 09/04/22 11:59 Pulse 66 09/04/22 11:59 Resp 20 09/04/22 11:59 BP 105/57 L 09/04/22 11:59 Pulse Ox 93 09/04/22 11:59 Laboratory Results - last 24 hr 09/03/22 09/03/22 09/03/22 22:05 22:05 22:05 WBC RBC Hgb Hct MCV MCH MCHC RDW Plt Count MPV Immature Gran % Neutrophils % Lymphocytes % Monocytes % Eosinophils % Basophils % Nucleated RBC % Absolute Neutrophils Absolute Lymphocytes Absolute Monocytes Absolute Eosinophils Absolute Basophils PT INR VBG Lactate 0.7 Sodium 141 Potassium 3.4 L Chloride 104 Carbon Dioxide 29.8 Anion Gap 7.2 BUN 12 Creatinine 0.8 Est GFR (CKD-EPI 2020) 108.49 Glucose 116 H Calcium 9.0 Magnesium 2.0 Total Bilirubin 1.2 H AST 14 L ALT 34 Alkaline Phosphatase 114 Troponin I < 50 C-Reactive Protein Total Protein 7.2 Albumin 3.6 Lipase 1261 H Procalcitonin Urine Color Urine Clarity Urine pH Ur Specific [place] Urine Protein Urine Ketones Urine Blood Urine Nitrite Urine Bilirubin Urine Urobilinogen Ur Leukocyte Esterase Urine RBC Urine WBC Ur Epithelial Cells Urine Crystals Urine Bacteria Urine Casts Urine Mucus Ur Culture Indicated? Urine Glucose COVID-19 Source SARS-CoV-2 (PCR) Add-On Test Request 09/03/22 09/03/22 09/04/22 22:05 22:30 00:12 WBC 15.54 H RBC 5.66 Hgb 15.8 Hct 47.5 MCV 84 MCH 27.9 MCHC 33.3 RDW 14.6 H Plt Count 209 MPV 9.5 Immature Gran % 0.4 Neutrophils % 64.8 Lymphocytes % 28.6 Monocytes % 5.2 Eosinophils % 0.7 Basophils % 0.3 Nucleated RBC % 0.0 Absolute Neutrophils 10.07 H Absolute Lymphocytes 4.44 H Absolute Monocytes 0.81 H Absolute Eosinophils 0.11 Absolute Basophils 0.05 PT INR VBG Lactate Sodium Potassium Chloride Carbon Dioxide Anion Gap BUN Creatinine Est GFR (CKD-EPI 2020) Glucose Calcium Magnesium Total Bilirubin AST ALT Alkaline Phosphatase Troponin I C-Reactive Protein Total Protein Albumin Lipase Procalcitonin Urine Color Yellow Urine Clarity Clear Urine pH 5.5 Ur Specific [place] >= 1.030 H Urine Protein 100 H Urine Ketones Trace H Urine Blood Large H Urine Nitrite Negative Urine Bilirubin Small H Urine Urobilinogen 0.2 Ur Leukocyte Esterase Negative Urine RBC 3-5 H Urine WBC 3-5 Ur Epithelial Cells Few Urine Crystals Few Calcium Oxalate Urine Bacteria Rare Urine Casts 5-10 Hyaline Urine Mucus Trace Ur Culture Indicated? No Urine Glucose Negative COVID-19 Source Nasal/Nares SARS-CoV-2 (PCR) Negative Add-On Test Request 09/04/22 09/04/22 09/04/22 06:02 06:02 06:02 WBC 10.95 H RBC 5.18 Hgb 14.5 Hct 44.0 MCV 85 MCH 28.0 MCHC 33.0 RDW 15.2 H Plt Count 200 MPV 9.6 Immature Gran % 0.5 Neutrophils % 54.3 Lymphocytes % 38.5 Monocytes % 5.7 Eosinophils % 0.8 Basophils % 0.2 Nucleated RBC % 0.0 Absolute Neutrophils 5.95 Absolute Lymphocytes 4.22 H Absolute Monocytes 0.62 Absolute Eosinophils 0.09 Absolute Basophils 0.02 PT 10.8 INR 1.1 VBG Lactate Sodium 142 Potassium 3.8 Chloride 107 Carbon Dioxide 28.4 Anion Gap 6.6 BUN 12 Creatinine 0.9 Est GFR (CKD-EPI 2020) 104.70 Glucose 93 Calcium 8.5 Magnesium 2.0 Total Bilirubin 1.3 H AST 12 L ALT 26 Alkaline Phosphatase 98 Troponin I C-Reactive Protein Total Protein 6.1 L Albumin 3.1 L Lipase 750 H Procalcitonin Urine Color Urine Clarity Urine pH Ur Specific [place] Urine Protein Urine Ketones Urine Blood Urine Nitrite Urine Bilirubin Urine Urobilinogen Ur Leukocyte Esterase Urine RBC Urine WBC Ur Epithelial Cells Urine Crystals Urine Bacteria Urine Casts Urine Mucus Ur Culture Indicated? Urine Glucose COVID-19 Source SARS-CoV-2 (PCR) Add-On Test Request 09/04/22 09/04/22 09/04/22 06:02 06:02 06:02 WBC RBC Hgb Hct MCV MCH MCHC RDW Plt Count MPV Immature Gran % Neutrophils % Lymphocytes % Monocytes % Eosinophils % Basophils % Nucleated RBC % Absolute Neutrophils Absolute Lymphocytes Absolute Monocytes Absolute Eosinophils Absolute Basophils PT INR VBG Lactate Sodium Potassium Chloride Carbon Dioxide Anion Gap BUN Creatinine Est GFR (CKD-EPI 2020) Glucose Calcium Magnesium Total Bilirubin AST ALT Alkaline Phosphatase Troponin I C-Reactive Protein 1.18 H Total Protein Albumin Lipase Procalcitonin < 0.1 Urine Color Urine Clarity Urine pH Ur Specific [place] Urine Protein Urine Ketones Urine Blood Urine Nitrite Urine Bilirubin Urine Urobilinogen Ur Leukocyte Esterase Urine RBC Urine WBC Ur Epithelial Cells Urine Crystals Urine Bacteria Urine Casts Urine Mucus Ur Culture Indicated? Urine Glucose COVID-19 Source SARS-CoV-2 (PCR) Add-On Test Request DONE
[2022-09-04] MEDS: Lidocaine 2% Jelly 11 ML SYR UR (12:42)
[2022-09-04] MEDS: Mylanta Suspension 30 ML CUP PO ×2 (12:42→15:09)
[2022-09-04] MEDS: Trimethobenzamide 200 MG/2 ML VIAL IM (13:16)
[2022-09-04] MEDS: Polyethylene Glycol 3350 17 GM PACKET PO (13:16)
[2022-09-04] MEDS: Docusate Sodium 100 MG CAP PO ×2 (13:17→21:12)
[2022-09-04] MEDS: Senna TAB 1 TAB PO (13:17)
[2022-09-04] MEDS: Acetaminophen 325 MG TAB PO (15:37)
[2022-09-05 01:31] VITALS: BP 102/50; PULSE 74; RESP 18; TEMP 36.6; O2SAT 92
[2022-09-05 03:39] VITALS: BP 110/64; PULSE 71; RESP 17; TEMP 36.7; O2SAT 91
[2022-09-05] MEDS: Heparin 5,000 UNITS/ML VIAL 5000 UNITS SC ×2 (06:11→13:59)
[2022-09-05] MEDS: Trimethobenzamide 200 MG/2 ML VIAL IM (06:21)
[2022-09-05 06:32] VITALS: O2SAT 96
[2022-09-05 06:58] LABS: Abs Immature Grans 0.03 10^3/uL (0.0-0.06); Absolute Basophil Count 0.01 10^3/uL (0.0-0.2); Absolute Eosinophil Count 0.06 10^3/uL (0.0-0.7); Absolute Lymphocyte Count 2.81 10^3/uL (1.2-3.4); Absolute Neutrophil Count 6.46 10^3/uL (1.2-6.7); Basophils % 0.1; Eosinophils % 0.6; HCT 40.6 % (40.0-50.0); HGB 13.4 g/dL (13.5-17.5); Immature Grans % 0.3; Lymphocytes % 28.2; MCH 27.9 pg (27.0-33.0); MCV 84 fL (80-95); MPV 9.8 fL (8.0-11.0); Neutrophils % 64.8; Platelet Count 175 10^3/uL (130-400); RBC 4.81 10^6/uL (4.36-5.78); RDW 14.9 % (11.8-14.1); RDW-SD 46.1 fL; WBC 9.97 10^3/uL (4.4-10.8)
[2022-09-05 07:19] LABS: ALT 23 U/L (16-63); AST 19 U/L (15-37); Albumin 2.8 g/dL (3.4-5.0); Alkaline Phosphatase 91 U/L (46-116); Anion Gap 5.6 mmol/L (3-11); BUN 6 mg/dL (7-18); Bilirubin, Direct 0.3 mg/dL (0.0-0.2); Bilirubin, Total 1.5 mg/dL (0.2-1.0); CO2 29.4 mmol/L (21.0-32.0); CREATININE 0.7 mg/dL (0.70-1.30); Calcium 8.6 mg/dL (8.5-10.1); Chloride 105 mmol/L (98-107); Estimated GFR 112.95 (mL/min/1.73m2); Glucose 115 mg/dL (74-106); Lipase 294 U/L (73-393); Magnesium 1.9 mg/dL (1.8-2.4); Sodium 140 mmol/L (136-145); Total Protein 5.9 g/dL (6.4-8.2)
[2022-09-05 07:42] VITALS: BP 103/51; PULSE 64; RESP 20; TEMP 36.7; O2SAT 100
[2022-09-05] MEDS: Budesonide/Formoterol 80/4.5 6.9 GM 60 PUFF INH IH (08:09)
[2022-09-05] MEDS: Polyethylene Glycol 3350 17 GM PACKET PO (08:16)
[2022-09-05] MEDS: Fluticasone NASAL SPRAY 16 GM BTL NS (08:16)
[2022-09-05] MEDS: Pantoprazole 40 MG TABCR PO (08:17)
[2022-09-05] MEDS: Atorvastatin 40 MG TAB PO (08:17)
[2022-09-05] MEDS: Sertraline 100 MG TAB 200 MG PO (08:17)
[2022-09-05] MEDS: Ezetimibe 10 MG TAB PO (08:17)
[2022-09-05] MEDS: Docusate Sodium 100 MG CAP PO (08:18)
--- NOTE | 2022-09-05 10:40 | PDOC.CMPRO ---
- If Service Date Differs Date of service: 09/05/22 Time of Service: 10:40 Care Management Progress Note S/O: Cole was sitting up in bed when CM met with him. His , Kendra, was visiting. Cole stated that he has had some trouble with his catheter, but otherwise he is doing well today. Per report, his diet has been advanced to clear liquids, which he was happy about. He remains acute today. He stated that he doesn't expect to require services upon discharge. CM will continue to follow. A: Cole is a 47 year old male admitted to [facility] on 09/03/22 for acute pancreatitis with pseudocyst. P: Anticipate Cole will return home once medically cleared. His spouse, Kendra, will drive him home via private vehicle. He will follow up with his PCP and discharge plan of care. CM will continue to follow.
[2022-09-05 11:41] VITALS: BP 110/75; PULSE 65; RESP 18; TEMP 36.9; O2SAT 97
[2022-09-05] MEDS: Tamsulosin 0.4 MG CAPCR PO (12:57)
[2022-09-05 15:17] VITALS: BP 100/63; PULSE 62; RESP 16; TEMP 36.7; O2SAT 96
--- NOTE | 2022-09-05 15:41 | W.PM.PROGNOT ---
Date of Service Date of service: 09/05/22 Time of Service: 15:41 Subjective Subjective Patient reports: no new complaints, feels better and afebrile; denies diarrhea, nausea, vomiting or shortness of breath Interval history since last seen: He states he would like to eat. Objective Last Vital Signs Temp 36.7 C 09/05/22 15:17 Pulse 62 09/05/22 15:17 Resp 16 09/05/22 15:17 BP 100/63 09/05/22 15:17 Pulse Ox 96 09/05/22 15:17 Laboratory Results - last 24 hr 09/05/22 09/05/22 06:32 06:32 WBC 9.97 RBC 4.81 Hgb 13.4 L Hct 40.6 MCV 84 MCH 27.9 MCHC 33.0 RDW 14.9 H Plt Count 175 MPV 9.8 Immature Gran % 0.3 Neutrophils % 64.8 Lymphocytes % 28.2 Monocytes % 6.0 Eosinophils % 0.6 Basophils % 0.1 Nucleated RBC % 0.0 Absolute Neutrophils 6.46 Absolute Lymphocytes 2.81 Absolute Monocytes 0.60 Absolute Eosinophils 0.06 Absolute Basophils 0.01 Sodium 140 Potassium 4.0 Chloride 105 Carbon Dioxide 29.4 Anion Gap 5.6 BUN 6 L Creatinine 0.7 Est GFR (CKD-EPI 2020) 112.95 Glucose 115 H Calcium 8.6 Magnesium 1.9 Total Bilirubin 1.5 H Conjugated Bilirubin 0.3 H AST 19 ALT 23 Alkaline Phosphatase 91 C-Reactive Protein 2.50 H Total Protein 5.9 L Albumin 2.8 L Lipase 294
--- NOTE | 2022-09-05 15:45 | DSE_ITS ---
Date of service: 09/05/22 Time of Service: 15:46 DS: Diagnosis Discharge Diagnosis (1) Acute pancreatitis: Status: Acute (2) Pancreatic pseudocyst: Status: Chronic (3) Hypokalemia: Status: Acute (4) Continuous tobacco abuse: Status: Chronic Discharge Plan Disposition Patient Disposition: Home Condition: Improving Discharge Details Reason For Visit: Acute Pancreatitis with Pseudocyst Admit Date/Time: 09/03/22 23:49 Admit Provider: Umang Waterman Attending Provider: Umang Waterman Primary Care Provider: Brian Longo Hospital Course Hospital Course: This is a 47-year-old male who had gallstone pancreatitis just over a year ago at which time he had a cholecystectomy. He then began to have chronic and recurrent episodes of pancreatitis with pseudocyst formation.? He does see [facility] for care and is having a planned pancreatic duct stent within the next week.? [facility] did not have a bed available and wanted him kept at this hospital for treatment of his acute process.? He presented to the ED with abdominal pain which was similar to his previous episodes of pancreatitis. His llipase was elevated at 1261 as well as elevated WBC at about 16,000.? He had no fever or ch ills but did have some slight increased pain and nausea with attempting to eat.? He had negative troponins and no complaints of chest pain.? He is a smoker.? He denies any alcohol use and denies any IV drug use.? Urinalysis was abnormal but did not suggest UTI.? Because the possibility of infection in his pseudocyst the patient was admitted for IV antibiotic therapy and pain control.? He also be on bowel rest with IV fluids with slight low potassium being replaced with IV fluids.? He is a full code. Procalcitonin was negative and antibiotics d/c'd. He felt better on day of discharged and tolerated liquids w/o N/V. His guardado catheter was d/c'd (placed d/t urinary retention). Tamsulosin initiated. He will advance his diet as tolerated. F/U with PCP in 1-2 weeks. Home Meds and New Rx's Prescriptions: New tamsulosin 0.4 mg Capsule 0.4 mg PO DAILY Qty: 30 0RF Continued budesonide-formoterol [Symbicort] 80-4.5 mcg/actuation HFA aerosol inhaler 1 puff Inhalation BID Qty: 1 11RF albuterol sulfate [ProAir HFA] 90 mcg/actuation HFA aerosol inhaler 2 puff Inhalation Q6H PRN PRN (Reason: bronchospasm) Qty: 1 3RF atorvastatin 40 mg tablet 40 mg PO DAILY Qty: 90 3RF pantoprazole 40 mg tablet,delayed release (DR/EC) 40 mg PO BID Qty: 180 3RF sertraline 100 mg tablet 200 mg PO DAILY Qty: 180 3RF Rx Instructions: dose increase 04/19/21 dose increase 09/17/21 fluticasone propionate 50 mcg/actuation spray,suspension 2 spray intranasal DAILY Qty: 9.9 5RF Rx Instructions: administer into each nostril (DME) nebulizer and compressor [Televerde-Air [employer] Neb System] 1 EACH device 1 ea Miscellaneous q 4 h prn Qty: 1 ipratropium-albuterol 0.5 mg-3 mg(2.5 mg base)/3 mL solution for nebulization 3 ml inhalation QID PRN (Reason: wheezing) Qty: 90 3RF ezetimibe [Zetia] 10 mg tablet 10 mg PO DAILY Qty: 90 3RF Trulance 3 mg tablet 3 mg PO DAILY Qty: 90 3RF Creon 12,000-38,000 -60,000 unit capsule,delayed release(DR/EC) 1 cap PO BID Qty: 60 2RF Rx Instructions: administer with meals and/or snacks acetaminophen 500 mg Tablet 1,000 mg PO PRN PRN ondansetron 4 mg tablet,disintegrating 4 mg PO Q6H PRNQty: 14 1RF Discharge Instructions Stand Alone Forms: Nursing Discharge Form Referrals: Brian Longo MD [Primary Care Provider] - (Please call Thursday to make a follow up appointment. ) Activity:: Activity as Tolerated Equipment/Supplies:: No Equipment Needed Diet:: Resume usual home diet DS: Summary Time Spent with Patient providing and/or coordinating discharge services: Greater than 30 minutes Status at Discharge Functional status at discharge: independent ambulation Overall status at discharge: patient is progressing back to baseline Mental Status: mental status grossly normal Speech and Movement: speech and movement normal Mood: congruent mood Affect: normal affect Exam Narrative Exam Narrative: General: Lying in bed. Pleasant and interactive. HEENT: MMM. Poor dentition. Lungs: Bronchovesicular breath sounds w/o rhonichi or wheezes. Nonlabored breathing. Heart: Regular rate and rhythm with no murmurs. Abdomen: NT, ND, +BS. Extremities: Right BKA with no swelling of either lower extremities. Skin: Multiple tattoos, normal color otherwise, warm and dry w/o rashes. Psych:Appropriate affect. A&O x 3. Psych Mental Status: mental status grossly normal Speech and Movement: speech and movement normal Mood: congruent mood Affect: normal affect DS: Data Vitals/I&O Vitals and I&O: Vital Signs Temperature 36.7 C 09/05/22 15:17 Temperature Source Tympanic 09/05/22 15:17 Pulse 62 09/05/22 15:17 Pulse Rhythm Regular 09/05/22 15:04 Pulse 68 09/04/22 01:16 Respiratory Rate 16 09/05/22 15:17 Respiratory Effort 09/05/22 15:04 Respiratory Depth Normal 09/05/22 15:04 Respiratory Pattern Normal 09/05/22 15:04 Blood Pressure 100/63 09/05/22 15:17 Blood Pressure Mean 66 09/04/22 01:16 Pulse Oximetry 96 09/05/22 15:17 Oxygen Delivery Method Room Air 09/05/22 15:17 Oxygen Flow Rate 0 09/05/22 15:17 Pain Level 0 09/05/22 15:17 Comment 09/04/22 11:59 Intake & Output 09/04/22 09/05/22 09/05/22 23:59 11:59 23:59 Intake Total 1249.583 / 2549.583 1914 / 5 Output Total 500 / 600 4650 / 6300 1650 / 6300 Balance 749.583 / 1949.583 -2735 / -3385 -650 / -3385 Intake: IV 1249.583 / 2549.583 1914 / 5 Output: Urine 500 / 600 4650 / 6300 1650 / 6300 Other: Urine Color Yellow Pale Yellow Yellow Urine Appearance Clear Clear Clear Urine Odor None Stool Size Moderate Copious Stool Characteristics Liquid Liquid Brown Voiding Methods Urinal Data Completed and Pending Labs on day of discharge: Labs from last 24 hours 09/05/22 09/05/22 06:32 06:32 WBC 9.97 RBC 4.81 Hgb 13.4 L Hct 40.6 MCV 84 MCH 27.9 MCHC 33.0 RDW 14.9 H Plt Count 175 MPV 9.8 Immature Gran % 0.3 Neutrophils % 64.8 Lymphocytes % 28.2 Monocytes % 6.0 Eosinophils % 0.6 Basophils % 0.1 Nucleated RBC % 0.0 Absolute Neutrophils 6.46 Absolute Lymphocytes 2.81 Absolute Monocytes 0.60 Absolute Eosinophils 0.06 Absolute Basophils 0.01 Sodium 140 Potassium 4.0 Chloride 105 Carbon Dioxide 29.4 Anion Gap 5.6 BUN 6 L Creatinine 0.7 Est GFR (CKD-EPI 2020) 112.95 Glucose 115 H Calcium 8.6 Magnesium 1.9 Total Bilirubin 1.5 H Conjugated Bilirubin 0.3 H AST 19 ALT 23 Alkaline Phosphatase 91 C-Reactive Protein 2.50 H Total Protein 5.9 L Albumin 2.8 L Lipase 294 Preliminary micro results at discharge 09/03/22 23:59 Blood Culture - Preliminary Blood NO GROWTH 24 HOURS 09/03/22 23:50 Blood Culture - Preliminary Blood NO GROWTH 24 HOURS PFSH All Active Problems Continuous tobacco abuse (Chronic) Hypokalemia (Acute) Chest pain at rest (Acute) RADIATION DOWN HIS ARMS Tobacco use (Chronic) Below-knee amputation of right lower extremity (Acute) Acute cholecystitis (Acute) Acute pancreatitis (Acute) Skin ulcer (Acute) Pancreatic pseudocyst (Chronic) S/P BKA (below knee amputation) (Acute) Sensorineural hearing loss (SNHL) of both ears (Acute) Chest pain (Acute) Abnormal flushing and sweating (Acute) Neck pain on left side (Acute) Pancreatitis (Chronic) Medical History Acquired deformity of nail s/p nail excision and matrix ablation 11/10/19 Ankle pain right, chronic Ankle pain, left Anxiety Arthritis Arthritis FOOT/ANKLE 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 Asthma 09/15/12 Burning sensation of feet Callous ulcer REFERRED TO DERM 12/22/13 Constipation due to opioid therapy Curvature of spine S/P FIXATION WITH RODS Cyst of skin TOP OF LEFT FOOT-PAINFUL Deafness Depression with anxiety Fracture of distal phalanx of right index finger Snowblowing injury Ganglion cyst Gastritis GERD (gastroesophageal reflux disease) History of reduction of closed fracture Hyperglycemia Hyperlipidemia Hypoglycemia Insomnia Leg pain, right Lipoma Loss of taste Low back pain Low back pain associated with a spinal disorder other than radiculopathy or spinal stenosis Lung nodules Migraine Mood disorder deteriorated Neck pain Neuropathy Pain, foot, right, chronic Partial Achilles tendon tear left 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 Snowblowing injury causing partial amputation Surgical revision of amputation DOS: 08/31/18 Partial traumatic transphalangeal amputation of right ring finger Snowblowing injury causing partial amputation Surgical revision of amputation DOS: 08/31/18 Right ankle joint deformity Right leg numbness Scrotal lesion Sebaceous cyst Sensorineural hearing loss of both ears Sinus headache Sprain of unspecified ligament of left ankle, subsequent encounter (06/30/16) Testicular pain, right 11/10/12-COMES AND GOES tobacco abuse Viral warts Wart of hand Surgical History Excision, Skin Mass 2008-LUQ LIPOMA Fracture, Closed Treatment ANKLE History of back surgery History of excision of mass History of neck surgery History of spinal surgery History of surgical 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 Family History Father Alcohol abuse Essential hypertension Heart disease Neoplasm Stroke Mother Essential hypertension COPD (chronic obstructive pulmonary disease) Depression Hyperlipidemia Neoplasm Stroke Asthma [place] ADHD (attention deficit hyperactivity disorder) Sister No problems noted. Brother Essential hypertension Grandfather Diabetes Alcohol abuse Grandfather Brain tumor Stroke Grandmother Diabetes Grandmother Heart disease Neoplasm Cervical cancer Stroke Family History Blood disorder Neoplasm Stomach,melanoma Social History Smoking/Tobacco Use Status: Current every day Tobacco Type: cigarettes Tobacco: How many years used: 30 Second Hand Exposure: Yes Counseling given: provider counseling Smoking risk assessment performed?: Yes Alcohol Intake: former Drug use: Never Substance use type: does not use Details: Stated 6 mos sobriety Household members: spouse Housing: apartment Number of Children: 4 Communication Needs: Hard of Hearing Do you need help understanding health information?: Rarely Pets and animals: Yes Pets and animals: cat(s) and dog(s) Sexually active: No Do you think of yourself as: straight/heterosexual Current gender identity: female What is your relationship status?: How often do you talk on the phone with friends or family?: three or more times per week Do you belong to any clubs or organized social groups?: no Panel score (0-1 are the most socially isolated patients): 2 What type of physical activity do you participate in: walking, aerobic and swimming Duration: < 15 minutes/day Mariajose/Anabaptism: No preference Special mariajose needs: No Seatbelt use: always Helmet use: No Drive intox or ride w/intox driver education road instructor: No Do you feel safe at home: Yes Do you feel safe in your relationship?: Yes
--- NOTE | 2022-09-05 16:21 | PDOC.CMDIS ---
- If Service Date Differs Date of service: 09/05/22 Time of Service: 16:21 LACE Index Scoring Tool - Questions: Length of Stay (in days): 2 Acuity (Admit via E.D.?): Yes E.D. Visits: 11 - Answers: Total Score: 9 Risk of Readmission: Low Risk Care Management Discharge Reason for Hospitalization: Acute Pancreatitis with pseudocyst Discharge Plan: Cole will return home today with no new services. His , Kendra, will drive him home via private vehicle. He will follow up with his PCP and discharge plan of care. He is happy to be going home. Patient/Family Education Needs: Review discharge instructions and limitations, discussion of self care needs including ask me three.
== END 2022-09-05 17:30 | disposition home or self-care (01) | DRG 439 ==
LOC: ER 09-04 01:29 → MS 09-04 01:38
PROVIDERS: Internal Medicine; Nurse Practitioner Family; Admitting Provider Family Medicine; Emergency Provider Student in an Organized Health Care Education/Training Program; PCP Family Medicine; Visit Provider Family Medicine
DX: K85.90 Acute pancreatitis without necrosis or infection, unspecified (principal); K86.3 Pseudocyst of pancreas; E87.6 Hypokalemia; H90.3 Sensorineural hearing loss, bilateral; F17.210 Nicotine dependence, cigarettes, uncomplicated; K86.1 Other chronic pancreatitis; R11.2 Nausea with vomiting, unspecified; K59.00 Constipation, unspecified; Z89.511 Acquired absence of right leg below knee
CPT/HCPCS: 36415; 80048; 80053; 80076; 83690; 84145; 87040; 87635; 94640; 74177; 81003; 81015; 83605; 83735; 84484; 85025; 85610; 86140; 99223; 99239; J0743; J1170; J1644; J2270; J2405; J2543; J3490

== ENCOUNTER 2022-09-07 12:03 | Inpatient (IN) | payer MEDICARE, MEDICAID, SELFPAY ==
[2022-09-07 12:20] VITALS: BP 124/42; PULSE 91; RESP 20; TEMP 36.6; O2SAT 97
[2022-09-07] MEDS: Normal Saline 1,000 ML 1000 ML IV (14:40)
[2022-09-07 14:42] LABS: Abs Immature Grans 0.02 10^3/uL (0.0-0.06); Absolute Basophil Count 0.02 10^3/uL (0.0-0.2); Absolute Eosinophil Count 0.11 10^3/uL (0.0-0.7); Absolute Lymphocyte Count 3.23 10^3/uL (1.2-3.4); Absolute Monocyte Count 0.72 10^3/uL (0.1-0.8); Basophils % 0.2; HCT 48.1 % (40.0-50.0); HGB 15.6 g/dL (13.5-17.5); Immature Grans % 0.2; Lymphocytes % 29.9; MCH 27.7 pg (27.0-33.0); MCHC 32.4 % (32.0-36.0); MCV 85 fL (80-95); MPV 9.9 fL (8.0-11.0); Monocytes % 6.7; Platelet Count 179 10^3/uL (130-400); RBC 5.64 10^6/uL (4.36-5.78); RDW 14.6 % (11.8-14.1); RDW-SD 45.7 fL; WBC 10.81 10^3/uL (4.4-10.8)
[2022-09-07] MEDS: ACETAMINOPHEN 1,000 MG/100 ML BTL 400 MG IVPB (14:44)
[2022-09-07 14:50] LABS: Lipase 1167 U/L (73-393)
--- NOTE | 2022-09-07 14:54 | W.ED.GENAD ---
Discharge Plan Disposition Patient Disposition: Admit to [facility] Condition: Serious Discharge Details Clinical Impression: Acute pancreatitis Admit Date/Time: 09/07/22 15:32 Admit Provider: Rolo Mijares Attending Provider: Rolo Mijares Primary Care Provider: Brian Longo ED Provider: Raul Stanley Discharge Data Discharge Date/Time-TO BE ENTERED AT DEPARTURE: 09/07/22 16:29 Medical Decision Making 1500 --47-year-old male with history of chronic recurrent pancreatitis with pseudocyst, discharged 2 days ago after hospitalization for flare of pancreatitis, returns today with severe mid abdominal pain consistent with prior exacerbations of pancreatitis. I am concerned that the patient has an exacerbation of pancreatitis we will treat with IV fluid and IV analgesic. I will initiate treatment with acetaminophen IV. Plan to check labs including lipase and LFTs. -- Labs reviewed and consistent with acute pancreatitis. Plan to admit to the hospitalist service. I called and spoke with the hospitalist on-call, discussed ED presentation and course, he will admit the patient. Lab Data Lab results reviewed: Yes I reviewed the patient's lab results. Sign Out No HPI General Mode of arrival: ambulatory. Date/Time Provider Initiated Documentation: 09/07/22 13:21. Limitations to Documentation: no limitations. Information obtained by: patient. HPI Narrative: ?47-year-old male with multiple medical problems including history of gallstone pancreatitis status postcholecystectomy about 1 year ago. Subsequent chronic and recurrent episodes of pancreatitis with pseudocyst formation. He is [place] [facility] [place] is plan for pancreatic duct stent next week. He presents today with chief complaint of abdominal pain. Pain is severe and persistent over the past few days since he was discharged from [facility] inpatient hospitalization for same. Pain is described as sharp and localized to mid upper abdomen. Patient has not taken anything for his pain today. He does have associated nausea. Related Data Home Medications Medication Instructions Recorded Confirmed nebulizer and compressor (Comp-Air #1 ea 07/16/16 09/22/22 Elite Comp Neb System device) atorvastatin 40 mg tablet 40 mg PO DAILY #90 tab-caps 09/17/21 09/22/22 pantoprazole 40 mg tablet,delayed 40 mg PO BID #180 tab-caps 09/17/21 09/22/22 release fluticasone propionate 50 2 spray intranasal DAILY #9.9 grams 11/13/21 09/22/22 mcg/actuation nasal spray,suspension acetaminophen 500 mg tablet 1,000 mg PO PRN PRN 11/23/21 09/22/22 ipratropium 0.5 mg-albuterol 3 mg 3 ml inhalation QID PRN wheezing 12/05/21 09/22/22 (2.5 mg base)/3 mL nebulization #90 mL soln ezetimibe 10 mg tablet (Zetia) 10 mg PO DAILY #90 tab-caps 12/23/21 09/22/22 albuterol sulfate 90 mcg/actuation 2 puff inhalation Q6H PRN PRN 01/24/22 09/22/22 aerosol inhaler (ProAir HFA) bronchospasm #1 inh budesonide-formoterol HFA 80 1 puff inhalation BID ##1 01/24/22 09/22/22 mcg-4.5 mcg/actuation aerosol inhaler (Symbicort) ondansetron 4 mg disintegrating 4 mg PO Q6H PRN #14 tabs 05/30/22 09/22/22 tablet plecanatide 3 mg tablet (Trulance) 3 mg PO DAILY constipation #90 tabs 05/31/22 09/22/22 [id number]-zvzkigeh-[id number] 1 cap PO BID #60 caps 06/10/22 09/22/22 12,000-38,000-60,000 unit capsule,delayed rel (Creon) tamsulosin 0.4 mg capsule 0.4 mg PO DAILY #30 caps 09/05/22 09/22/22 ketorolac 10 mg tablet 10 mg PO TID PRN pain 10 days #30 09/17/22 09/22/22 tabs sertraline 100 mg tablet 200 mg PO DAILY #180 tabs 09/24/22 Previous Rx's Medication Instructions Recorded atorvastatin 40 mg tablet 40 mg PO DAILY #90 tab-caps 09/17/21 pantoprazole 40 mg tablet,delayed 40 mg PO BID #180 tab-caps 09/17/21 release fluticasone propionate 50 2 spray intranasal DAILY #9.9 grams 11/13/21 mcg/actuation nasal spray,suspension ipratropium 0.5 mg-albuterol 3 mg 3 ml inhalation QID PRN wheezing 12/05/21 (2.5 mg base)/3 mL nebulization #90 mL soln ezetimibe 10 mg tablet (Zetia) 10 mg PO DAILY #90 tab-caps 12/23/21 albuterol sulfate 90 mcg/actuation 2 puff inhalation Q6H PRN PRN 01/24/22 aerosol inhaler (ProAir HFA) bronchospasm #1 inh budesonide-formoterol HFA 80 1 puff inhalation BID ##1 01/24/22 mcg-4.5 mcg/actuation aerosol inhaler (Symbicort) ondansetron 4 mg disintegrating 4 mg PO Q6H PRN #14 tabs 05/30/22 tablet plecanatide 3 mg tablet (Trulance) 3 mg PO DAILY constipation #90 tabs 05/31/22 [id number]-[id number] 1 cap PO BID #60 caps 06/10/22 12,000-38,000-60,000 unit capsule,delayed rel (Creon) tamsulosin 0.4 mg capsule 0.4 mg PO DAILY #30 caps 09/05/22 ketorolac 10 mg tablet 10 mg PO TID PRN pain 10 days #30 09/17/22 tabs sertraline 100 mg tablet 200 mg PO DAILY #180 tabs 09/24/22 Allergies Allergy/AdvReac Type Severity Reaction Status Date / Time Fish Containing Products Allergy Intermediate hives Verified 09/22/22 21:08 aspirin AdvReac Intermediate epistaxis Verified 09/22/22 21:08 seafood Allergy Intermediate Hives Uncoded 09/22/22 21:08 hydrocodone-homatropine AdvReac Intermediate GI UPSET Uncoded 09/22/22 21:08 General Stated Complaint: Abd Prob DONG: 3 Review of Systems All systems reviewed & are unremarkable except as noted in HPI and below Constitutional Constitutional: Denies fever(s) Gastrointestinal Gastrointestinal: Reports abdominal pain PFSH All Active Problems (Updated 09/24/22 @ 13:31 by Raul Stanley MD) Recurrent abdominal pain (Acute) COVID-19 (Acute) Acute pancreatitis (Acute) Continuous tobacco abuse (Chronic) Chest pain at rest (Acute) RADIATION DOWN HIS ARMS Tobacco use (Chronic) Below-knee amputation of right lower extremity (Acute) Acute cholecystitis (Acute) Skin ulcer (Acute) S/P BKA (below knee amputation) (Acute) Sensorineural hearing loss (SNHL) of both ears (Acute) Chest pain (Acute) Abnormal flushing and sweating (Acute) Neck pain on left side (Acute) Medical History Acquired deformity of nail s/p nail excision and matrix ablation 11/10/19 Ankle pain right, chronic Ankle pain, left Anxiety Arthritis Arthritis FOOT/ANKLE 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 Asthma 09/15/12 Burning sensation of feet Callous ulcer REFERRED TO DERM 12/22/13 Constipation due to opioid therapy Curvature of spine S/P FIXATION WITH RODS Cyst of skin TOP OF LEFT FOOT-PAINFUL Deafness Depression with anxiety Fracture of distal phalanx of right index finger Snowblowing injury Ganglion cyst Gastritis GERD (gastroesophageal reflux disease) History of reduction of closed fracture Hyperglycemia Hyperlipidemia Hypoglycemia Insomnia Leg pain, right Lipoma Loss of taste Low back pain Low back pain associated with a spinal disorder other than radiculopathy or spinal stenosis Lung nodules Migraine Mood disorder deteriorated Neck pain Neuropathy Pain, foot, right, chronic Partial Achilles tendon tear left 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 Snowblowing injury causing partial amputation Surgical revision of amputation DOS: 08/31/18 Partial traumatic transphalangeal amputation of right ring finger Snowblowing injury causing partial amputation Surgical revision of amputation DOS: 08/31/18 Right ankle joint deformity Right leg numbness Scrotal lesion Sebaceous cyst Sensorineural hearing loss of both ears Sinus headache Sprain of unspecified ligament of left ankle, subsequent encounter (06/30/16) Testicular pain, right 11/10/12-COMES AND GOES tobacco abuse Viral warts Wart of hand Surgical History Excision, Skin Mass 2008-LUQ LIPOMA Fracture, Closed Treatment ANKLE History of back surgery History of excision of mass History of neck surgery History of spinal surgery History of surgical 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 Family History Father Alcohol abuse Essential hypertension Heart disease Neoplasm Stroke Mother Essential hypertension COPD (chronic obstructive pulmonary disease) Depression Hyperlipidemia Neoplasm Stroke Asthma SIBLING ADHD (attention deficit hyperactivity disorder) Sister No problems noted. Brother Essential hypertension Grandfather Diabetes Alcohol abuse Grandfather Brain tumor Stroke Grandmother Diabetes Grandmother Heart disease Neoplasm Cervical cancer Stroke Family History Blood disorder Neoplasm Stomach,melanoma Social History Smoking/Tobacco Use Status: Current every day Tobacco Type: cigarettes Tobacco: How many years used: 30 Second Hand Exposure: Yes Counseling given: provider counseling Smoking risk assessment performed?: Yes Alcohol Intake: former Drug use: Never Substance use type: does not use Details: Stated 6 mos sobriety Household members: spouse Housing: apartment Number of Children: 4 Communication Needs: Hard of Hearing Do you need help understanding health information?: Rarely Pets and animals: Yes Pets and animals: cat(s) and dog(s) Sexually active: No Do you think of yourself as: straight/heterosexual Current gender identity: female What is your relationship status?: How often do you talk on the phone with friends or family?: three or more times per week Do you belong to any clubs or organized social groups?: no Panel score (0-1 are the most socially isolated patients): 2 What type of physical activity do you participate in: walking, aerobic and swimming Duration: < 15 minutes/day Mariajose/Mormon: No preference Special mariajose needs: No Seatbelt use: always Helmet use: No Drive intox or ride w/intox driver sales: No Do you feel safe at home: Yes Do you feel safe in your relationship?: Yes Exam Const General: cooperative and no acute distress Eyes Conjunctivae: normal conjunctivae Sclera: normal sclerae Neck Neck: trachea midline and supple Resp Auscultation: clear to auscultation bilaterally, no rales, no rhonchi and no wheezes Cardio Rate: regular rate and not tachycardic Rhythm: regular rhythm GI Palpation: soft, not firm, no guarding, no masses, not rigid and tender in the epigastrum and other (mid abdomen) Skin General skin exam: no rashes or lesions noted Neuro General: patient alert, patient awake, patient oriented x3 and tone normal Extrem General: no edema Psych Appearance: grossly normal Mental Status: mental status grossly normal Course Vital Signs Vital signs: Vital Signs Temperature 36.6 C 09/07/22 12:20 Pulse 91 H 09/07/22 12:20 Respiratory Rate 20 09/07/22 12:20 Blood Pressure 124/42 L 09/07/22 12:20 Pulse Oximetry 97 09/07/22 12:20 Temperature 36.6 C 09/07/22 12:20 Temperature Source Oral 09/07/22 12:20 Pulse 91 H 09/07/22 12:20 Respiratory Rate 20 09/07/22 12:20 Respiratory Effort Non-Labored 09/07/22 12:24 Blood Pressure 124/42 L 09/07/22 12:20 Blood Pressure Position Sitting 09/07/22 12:20 Pulse Oximetry 97 09/07/22 12:20 Oxygen Delivery Method Room Air 09/07/22 12:20 Oxygen Flow Rate 0 09/07/22 12:20 Pain Level 8 09/07/22 12:20
[2022-09-07 14:55] LABS: ALT 22 U/L (16-63); AST 15 U/L (15-37); Albumin 3.6 g/dL (3.4-5.0); Alkaline Phosphatase 110 U/L (46-116); Anion Gap 8.8 mmol/L (3-11); BUN 5 mg/dL (7-18); Bilirubin, Total 1.4 mg/dL (0.2-1.0); CO2 27.2 mmol/L (21.0-32.0); Calcium 9.1 mg/dL (8.5-10.1); Chloride 101 mmol/L (98-107); Estimated GFR 92.26 (mL/min/1.73m2); Glucose 106 mg/dL (74-106); Potassium 3.7 mmol/L (3.5-5.1); Sodium 137 mmol/L (136-145); Total Protein 7.6 g/dL (6.4-8.2)
[2022-09-07 15:31] VITALS: BP 138/64; PULSE 80; RESP 18; O2SAT 96
[2022-09-07] MEDS: HYDROmorphone 2 MG/ML SYR 1 MG IVP ×3 (15:38→22:29)
[2022-09-07 16:09] LABS: Source Nasal/Nares
[2022-09-07 16:26] LABS: PHOSPHORUS 2.9 mg/dL (2.6-4.7)
[2022-09-07 16:52] LABS: COVID-19 PCR POSITIVE (Negative)
[2022-09-07 17:01] VITALS: BP 107/66; PULSE 92; RESP 19; TEMP 36.2; O2SAT 94; O2SAT 95
--- NOTE | 2022-09-07 17:30 | W.PM.HP.N ---
Date of service: 09/07/22 Time of Service: 17:31 Assessment and Plan Assessment and plan (1) Acute pancreatitis: Status: Acute Assessment and plan: Recurrent Planned stenting at [facility] [place] for 09/16/22 Will inform [facility] [place] of his +Covid status. NPO with ice chips and sips of water with meds. Analgesia with dilaudid. Phenergan prn for nausea. (2) Continuous tobacco abuse: Status: Chronic Assessment and plan: Nicotrol inhaler. (3) Asthma: Assessment and plan: PRN Duonebs or albuterol. No exacerbation currently. (4) Hyperlipidemia: Assessment and plan: Cont atorvastatin. (5) COVID-19: Status: Acute Assessment and plan: Not hypoxic. Asymptomatic. Precautions. History of Present Illness History of Present Illness Chief Complaint: Abdominal pain and nausea Narrative: This is a 47 yo male with a PMH of gallstone pancreatitis s/p chelecystectomy (over 1 year ago), now with recurrent pancreatitis with planned stent placement at [facility] [place] on 09/16/22, pancreatic pseudocyst, tobacco abuse, BKA of RLE. He was admitted to [facility] on 09/04/22 for acute pancreatitis, discharged on 08/26/22 and feeling well and tolerating a diet. Lipase of 1167. Total bilirubin 1.4. WBC count 10.8 (on 09/03/22 was 15.54, then 9.97 on 09/05). IV dilaudid and IV fluids administered in the ED. Admitted for pain control, nausea control. No fever. He endorsed nausea but no emesis. + cough which is chronic. He was found to be Covid +. Review of Systems All systems reviewed & are unremarkable except as noted in HPI and below PFSH All Active Problems (Updated 09/07/22 @ 17:45 by Rolo Mijares MD) COVID-19 (Acute) Acute pancreatitis (Acute) Continuous tobacco abuse (Chronic) Chest pain at rest (Acute) RADIATION DOWN HIS ARMS Tobacco use (Chronic) Below-knee amputation of right lower extremity (Acute) Acute cholecystitis (Acute) Skin ulcer (Acute) Pancreatic pseudocyst (Chronic) S/P BKA (below knee amputation) (Acute) Sensorineural hearing loss (SNHL) of both ears (Acute) Chest pain (Acute) Abnormal flushing and sweating (Acute) Neck pain on left side (Acute) Pancreatitis (Chronic) Medical History Acquired deformity of nail s/p nail excision and matrix ablation 11/10/19 Ankle pain right, chronic Ankle pain, left Anxiety Arthritis Arthritis FOOT/ANKLE 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 Asthma 09/15/12 Burning sensation of feet Callous ulcer REFERRED TO DERM 12/22/13 Constipation due to opioid therapy Curvature of spine S/P FIXATION WITH RODS Cyst of skin TOP OF LEFT FOOT-PAINFUL Deafness Depression with anxiety Fracture of distal phalanx of right index finger Snowblowing injury Ganglion cyst Gastritis GERD (gastroesophageal reflux disease) History of reduction of closed fracture Hyperglycemia Hyperlipidemia Hypoglycemia Insomnia Leg pain, right Lipoma Loss of taste Low back pain Low back pain associated with a spinal disorder other than radiculopathy or spinal stenosis Lung nodules Migraine Mood disorder deteriorated Neck pain Neuropathy Pain, foot, right, chronic Partial Achilles tendon tear left 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 Snowblowing injury causing partial amputation Surgical revision of amputation DOS: 08/31/18 Partial traumatic transphalangeal amputation of right ring finger Snowblowing injury causing partial amputation Surgical revision of amputation DOS: 08/31/18 Right ankle joint deformity Right leg numbness Scrotal lesion Sebaceous cyst Sensorineural hearing loss of both ears Sinus headache Sprain of unspecified ligament of left ankle, subsequent encounter (06/30/16) Testicular pain, right 11/10/12-COMES AND GOES tobacco abuse Viral warts Wart of hand Surgical History Excision, Skin Mass 2008-LUQ LIPOMA Fracture, Closed Treatment ANKLE History of back surgery History of excision of mass History of neck surgery History of spinal surgery History of surgical 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 Family History Father Alcohol abuse Essential hypertension Heart disease Neoplasm Stroke Mother Essential hypertension COPD (chronic obstructive pulmonary disease) Depression Hyperlipidemia Neoplasm Stroke Asthma SIBLING ADHD (attention deficit hyperactivity disorder) Sister No problems noted. Brother Essential hypertension Grandfather Diabetes Alcohol abuse Grandfather Brain tumor Stroke Grandmother Diabetes Grandmother Heart disease Neoplasm Cervical cancer Stroke Family History Blood disorder Neoplasm Stomach,melanoma Social History Smoking/Tobacco Use Status: Current every day Tobacco Type: cigarettes Tobacco: How many years used: 30 Second Hand Exposure: Yes Counseling given: provider counseling Smoking risk assessment performed?: Yes Alcohol Intake: former Drug use: Never Substance use type: does not use Details: Stated 6 mos sobriety Household members: spouse Housing: apartment Number of Children: 4 Communication Needs: Hard of Hearing Do you need help understanding health information?: Rarely Pets and animals: Yes Pets and animals: cat(s) and dog(s) Sexually active: No Do you think of yourself as: straight/heterosexual Current gender identity: female What is your relationship status?: How often do you talk on the phone with friends or family?: three or more times per week Do you belong to any clubs or organized social groups?: no Panel score (0-1 are the most socially isolated patients): 2 What type of physical activity do you participate in: walking, aerobic and swimming Duration: < 15 minutes/day Mariajose/Bahai: No preference Special mariajose needs: No Seatbelt use: always Helmet use: No Drive intox or ride w/intox national dedicated truck driver: No Do you feel safe at home: Yes Do you feel safe in your relationship?: Yes Meds Allergies and Home Medications Allergies Allergy/AdvReac Type Severity Reaction Status Date / Time Fish Containing Products Allergy Intermediate hives Verified 09/07/22 12:24 aspirin AdvReac Intermediate epistaxis Verified 09/07/22 12:24 seafood Allergy Intermediate Hives Uncoded 09/07/22 12:24 hydrocodone-homatropine AdvReac Intermediate GI UPSET Uncoded 09/07/22 12:24 Home Medications Medication Instructions Recorded Confirmed Type nebulizer and compressor (Comp-Air #1 ea 07/16/16 09/07/22 History Elite Comp Neb System device) atorvastatin 40 mg tablet 40 mg PO DAILY #90 tab-caps 09/17/21 09/07/22 Rx pantoprazole 40 mg tablet,delayed 40 mg PO BID #180 tab-caps 09/17/21 09/07/22 Rx release sertraline 100 mg tablet 200 mg PO DAILY #180 tabs 09/17/21 09/07/22 Rx fluticasone propionate 50 2 spray intranasal DAILY #9.9 grams 11/13/21 09/07/22 Rx mcg/actuation nasal spray,suspension acetaminophen 500 mg tablet 1,000 mg PO PRN PRN 11/23/21 09/07/22 History ipratropium 0.5 mg-albuterol 3 mg 3 ml inhalation QID PRN wheezing 12/05/21 09/07/22 Rx (2.5 mg base)/3 mL nebulization #90 mL soln ezetimibe 10 mg tablet (Zetia) 10 mg PO DAILY #90 tab-caps 12/23/21 09/07/22 Rx albuterol sulfate 90 mcg/actuation 2 puff inhalation Q6H PRN PRN 01/24/22 09/07/22 Rx aerosol inhaler (ProAir HFA) bronchospasm #1 inh budesonide-formoterol HFA 80 1 puff inhalation BID ##1 01/24/22 09/07/22 Rx mcg-4.5 mcg/actuation aerosol inhaler (Symbicort) ondansetron 4 mg disintegrating 4 mg PO Q6H PRN #14 tabs 05/30/22 09/07/22 Rx tablet plecanatide 3 mg tablet (Trulance) 3 mg PO DAILY constipation #90 tabs 05/31/22 09/07/22 Rx vsbkvu-avywvhol-glwybfe 1 cap PO BID #60 caps 06/10/22 09/07/22 Rx 12,000-38,000-60,000 unit capsule,delayed rel (Creon) tamsulosin 0.4 mg capsule 0.4 mg PO DAILY #30 caps 09/05/22 09/07/22 Rx Exam Narrative Exam Narrative: Lying in bed. Grimaces. Does ask for ice chips. Const General: cooperative Nutritional Appearance: average body habitus Orientation: alert and oriented x3 Eyes General: appearance normal, both eyes and all related structures Sclera: sclerae normal Resp Effort & Inspection: normal respiratory effort Auscultation: clear to auscultation bilaterally Cardio Rate: regular rate Rhythm: regular rhythm Heart Sounds: S1 normal and S2 normal GI Inspection: normal to inspection Palpation: soft and tender in the epigastrum and in the LUQ; with no rebound tenderness Auscultation: hypoactive bowel sounds Skin General skin exam: no rashes or lesions noted Neuro General: no focal motor deficits Cranial Nerves: facial strength normal Cognition: normal cognition Speech: speech normal Extrem General: no pedal edema and no calf tenderness Psych Appearance: grossly normal Affect: normal affect (appropriate for the circumstances. ) Results Labs Result diagrams: 09/07/22 14:07 09/07/22 14:07 Labs: Laboratory Results - last 24 hr 09/07/22 09/07/22 09/07/22 11:07 14:07 14:07 WBC RBC Hgb Hct MCV MCH MCHC RDW Plt Count MPV Immature Gran % Neutrophils % Lymphocytes % Monocytes % Eosinophils % Basophils % Nucleated RBC % Absolute Neutrophils Absolute Lymphocytes Absolute Monocytes Absolute Eosinophils Absolute Basophils Sodium 137 Potassium 3.7 Chloride 101 Carbon Dioxide 27.2 Anion Gap 8.8 BUN 5 L Creatinine 1.0 Est GFR (CKD-EPI 2020) 92.26 Glucose 106 Calcium 9.1 Phosphorus Total Bilirubin 1.4 H AST 15 ALT 22 Alkaline Phosphatase 110 Total Protein 7.6 Albumin 3.6 Lipase 1167 H COVID-19 Source Nasal/Nares SARS-CoV-2 (PCR) POSITIVE A* 09/07/22 09/07/22 14:07 14:07 WBC 10.81 H RBC 5.64 Hgb 15.6 D Hct 48.1 MCV 85 MCH 27.7 MCHC 32.4 RDW 14.6 H Plt Count 179 MPV 9.9 Immature Gran % 0.2 Neutrophils % 62.0 Lymphocytes % 29.9 Monocytes % 6.7 Eosinophils % 1.0 Basophils % 0.2 Nucleated RBC % 0.0 Absolute Neutrophils 6.70 Absolute Lymphocytes 3.23 Absolute Monocytes 0.72 Absolute Eosinophils 0.11 Absolute Basophils 0.02 Sodium Potassium Chloride Carbon Dioxide Anion Gap BUN Creatinine Est GFR (CKD-EPI 2020) Glucose Calcium Phosphorus 2.9 Total Bilirubin AST ALT Alkaline Phosphatase Total Protein Albumin Lipase COVID-19 Source SARS-CoV-2 (PCR) Last Vital Signs Temp 36.2 C L 09/07/22 17:01 Pulse 92 H 09/07/22 17:01 Resp 19 09/07/22 17:01 BP 107/66 09/07/22 17:01 Pulse Ox 94 09/07/22 17:01
[2022-09-07] MEDS: Normal Saline Flush 10 ML SYR IVP ×3 (17:51→22:07)
[2022-09-07] MEDS: Heparin 5,000 UNITS/ML VIAL 5000 UNITS SC (17:51)
[2022-09-07] MEDS: Lactated Ringers 1,000 ML 80 ML IV (17:51)
[2022-09-07] MEDS: Mylanta Suspension 30 ML CUP PO (17:51)
[2022-09-07] MEDS: Pantoprazole 40 MG TABCR PO (19:21)
[2022-09-07 19:28] VITALS: BP 107/68; RESP 12; TEMP 36.6; O2SAT 96
[2022-09-07] MEDS: Budesonide/Formoterol 80/4.5 6.9 GM 60 PUFF INH IH (20:51)
[2022-09-07] MEDS: Albuterol 2.5 MG/3 ML INH SOLN VIAL UPD (22:07)
[2022-09-07 22:37] VITALS: RESP 4
[2022-09-08] MEDS: Heparin 5,000 UNITS/ML VIAL 5000 UNITS SC ×3 (00:30→15:02)
[2022-09-08 03:32] VITALS: BP 99/55; PULSE 60; RESP 14; TEMP 36.3; O2SAT 92
[2022-09-08 06:24] LABS: HCT 42.1 % (40.0-50.0); HGB 13.6 g/dL (13.5-17.5); MCH 27.9 pg (27.0-33.0); MCHC 32.3 % (32.0-36.0); MCV 86 fL (80-95); MPV 10.2 fL (8.0-11.0); Platelet Count 149 10^3/uL (130-400); RBC 4.88 10^6/uL (4.36-5.78); RDW 14.6 % (11.8-14.1); RDW-SD 46.6 fL; WBC 8.02 10^3/uL (4.4-10.8)
[2022-09-08] MEDS: Lactated Ringers 1,000 ML 80 ML IV (06:37)
[2022-09-08 06:46] LABS: ALT 17 U/L (16-63); AST 14 U/L (15-37); Albumin 2.9 g/dL (3.4-5.0); Alkaline Phosphatase 94 U/L (46-116); Anion Gap 8.2 mmol/L (3-11); BUN 5 mg/dL (7-18); Bilirubin, Total 1.1 mg/dL (0.2-1.0); CO2 26.8 mmol/L (21.0-32.0); CREATININE 0.7 mg/dL (0.70-1.30); Calcium 9.1 mg/dL (8.5-10.1); Chloride 104 mmol/L (98-107); Estimated GFR 112.95 (mL/min/1.73m2); Glucose 85 mg/dL (74-106); Potassium 3.8 mmol/L (3.5-5.1); Sodium 139 mmol/L (136-145); Total Protein 6.5 g/dL (6.4-8.2)
[2022-09-08] MEDS: HYDROmorphone 2 MG/ML SYR 1 MG IVP (06:49)
[2022-09-08] MEDS: Normal Saline Flush 10 ML SYR IVP (06:49)
[2022-09-08 07:49] VITALS: BP 103/63; PULSE 63; RESP 14; TEMP 35.6; O2SAT 94
[2022-09-08] MEDS: Atorvastatin 40 MG TAB PO (08:16)
[2022-09-08] MEDS: Budesonide/Formoterol 80/4.5 6.9 GM 60 PUFF INH IH ×2 (08:16→19:37)
[2022-09-08] MEDS: Ezetimibe 10 MG TAB PO (08:16)
[2022-09-08] MEDS: Pantoprazole 40 MG TABCR PO (08:17)
[2022-09-08] MEDS: Tamsulosin 0.4 MG CAPCR PO (08:17)
[2022-09-08] MEDS: Sertraline 100 MG TAB 200 MG PO (08:17)
[2022-09-08 15:23] VITALS: BP 118/64; PULSE 76; RESP 14; TEMP 36.5; O2SAT 94
--- NOTE | 2022-09-08 16:28 | PGE_ITS ---
Date of Service Date of service: 09/08/22 Time of Service: 16:29 Assessment and Plan Assessment and plan (1) Acute pancreatitis: Status: Acute Assessment and plan: Recurrent Planned stenting at [facility] for 09/16/22 Will inform [facility] of his +Covid status. NPO with ice chips and sips of water with meds. Advance Analgesia with dilaudid. Phenergan prn for nausea. (2) Continuous tobacco abuse: Status: Chronic Assessment and plan: Nicotrol inhaler. (3) Asthma: Assessment and plan: PRN Duonebs or albuterol. No exacerbation currently. (4) Hyperlipidemia: Assessment and plan: Cont atorvastatin. (5) COVID-19: Status: Acute Assessment and plan: Not hypoxic. Asymptomatic. Precautions. Subjective Subjective Patient reports: pain is less, nausea and afebrile; denies vomiting or shortness of breath Interval history since last seen: c/o acid reflux Exam Narrative Exam Narrative: Lying in bed. Appears uncomfortable. Belches and then states there is burning in his lower chest. Const General: cooperative Nutritional Appearance: average body habitus Orientation: alert and oriented x3 Eyes General: appearance normal, both eyes and all related structures Sclera: sclerae normal Resp Effort & Inspection: normal respiratory effort Auscultation: clear to auscultation bilaterally Cardio Rate: regular rate Rhythm: regular rhythm Heart Sounds: S1 normal and S2 normal GI Inspection: normal to inspection and non-distended Palpation: soft and tender in the epigastrum and in the LUQ; with no rebound tenderness Auscultation: hypoactive bowel sounds Skin General skin exam: no rashes or lesions noted Neuro General: no focal motor deficits Cranial Nerves: facial strength normal Cognition: normal cognition Speech: speech normal Extrem General: no pedal edema and no calf tenderness Psych Appearance: grossly normal Affect: normal affect (appropriate for the circumstances. ) Objective Last Vital Signs Temp 36.5 C 09/08/22 15:23 Pulse 76 09/08/22 15:23 Resp 14 09/08/22 15:23 BP 118/64 09/08/22 15:23 Pulse Ox 94 09/08/22 15:23 Laboratory Results - last 24 hr 09/07/22 09/07/22 09/08/22 11:07 14:07 06:03 WBC RBC Hgb Hct MCV MCH MCHC RDW Plt Count MPV Sodium 139 Potassium 3.8 Chloride 104 Carbon Dioxide 26.8 Anion Gap 8.2 BUN 5 L Creatinine 0.7 Est GFR (CKD-EPI 2020) 112.95 Glucose 85 Calcium 9.1 Phosphorus 2.9 Total Bilirubin 1.1 H AST 14 L ALT 17 Alkaline Phosphatase 94 Total Protein 6.5 Albumin 2.9 L SARS-CoV-2 (PCR) POSITIVE A* 09/08/22 06:03 WBC 8.02 RBC 4.88 Hgb 13.6 D Hct 42.1 MCV 86 MCH 27.9 MCHC 32.3 RDW 14.6 H Plt Count 149 MPV 10.2 Sodium Potassium Chloride Carbon Dioxide Anion Gap BUN Creatinine Est GFR (CKD-EPI 2020) Glucose Calcium Phosphorus Total Bilirubin AST ALT Alkaline Phosphatase Total Protein Albumin SARS-CoV-2 (PCR)
--- NOTE | 2022-09-08 16:34 | PDOC.CMIN ---
- If Service Date Differs Date of service: 09/08/22 Time of Service: 16:34 Care Management Initial Assess REASON FOR HOSPITALIZATION:: pancreatitis PAST MEDICAL HISTORY/PAST SURGICAL HISTORY:: All Active Problems. COVID-19 (Acute). Acute pancreatitis (Acute). Continuous tobacco abuse (Chronic). Chest pain at rest (Acute). RADIATION DOWN HIS ARMS. Tobacco use (Chronic). Below-knee amputation of right lower extremity (Acute). Acute cholecystitis (Acute). Skin ulcer (Acute). Pancreatic pseudocyst (Chronic). S/P BKA (below knee amputation) (Acute). Sensorineural hearing loss (SNHL) of both ears (Acute). Chest pain (Acute). Abnormal flushing and sweating (Acute). Neck pain on left side (Acute). Pancreatitis (Chronic). Medical History. Acquired deformity of nail. s/p nail excision and matrix ablation 11/10/19. Ankle pain. right, chronic. Ankle pain, left. Anxiety. Arthritis. Arthritis. FOOT/ANKLE. Arthritis of right ankle. Arthritis of right subtalar joint. Asthma. 09/15/12. Burning sensation of feet. Callous ulcer. REFERRED TO DERM 12/22/13. Constipation due to opioid therapy. Curvature of spine. S/P FIXATION WITH RODS. Cyst of skin. TOP OF LEFT FOOT-PAINFUL. Deafness. Depression with anxiety. Fracture of distal phalanx of right index finger. Snowblowing injury. Ganglion cyst. Gastritis. GERD (gastroesophageal reflux disease). History of reduction of closed fracture. Hyperglycemia. Hyperlipidemia. Hypoglycemia. Insomnia. Leg pain, right. Lipoma. Loss of taste. Low back pain. Low back pain associated with a spinal disorder other than radiculopathy or spinal stenosis. Lung nodules. Migraine. Mood disorder. deteriorated. Neck pain. Neuropathy. Pain, foot, right, chronic. Partial Achilles tendon tear. left. 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. Snowblowing injury causing partial amputation. Surgical revision of amputation. DOS: 08/31/18. Partial traumatic transphalangeal amputation of right ring finger. Snowblowing injury causing partial amputation. Surgical revision of amputation. DOS: 08/31/18. Right ankle joint deformity. Right leg numbness. Scrotal lesion. Sebaceous cyst. Sensorineural hearing loss of both ears. Sinus headache. Sprain of unspecified ligament of left ankle, subsequent encounter (06/30/16). Testicular pain, right. 11/10/12-COMES AND GOES. tobacco abuse. Viral warts. Wart of hand. Surgical History. Excision, Skin Mass. 2009-LUQ LIPOMA. Fracture, Closed Treatment. ANKLE. History of back surgery. History of excision of mass. History of neck surgery. History of spinal surgery. History of surgical amputation of finger of right hand. pt. reports putting hand in attic blower. Hx of arthroscopic knee surgery. Hx of right BKA. 11/21/21 [facility] [place] (Dr Murray). NECK SURGERY. 09/19-WITH METAL PLATE. Open Carpal Tunnel release. 204-RIGHT. Postsurgical arthrodesis status (08/22/20). rt ankle. Status post carpal tunnel release. Tibial fracture. S/P tibial nail fixation. PREVIOUS FUNCTIONAL STATUS/SOCIAL/FAMILY SUPPORTS:: Cole lives in [place] with his Kendra and an elderly gentleman. He has 2 children, one lives in [place] and the other is in [place], [place] He is close to his children and identifies them as a source of support. Cole also has 2 step children that he is not allowed to have contact with. He is disabled and does not drive, although his does and can transport him as needed. CURRENT FUNCTIONAL STATUS:: Cole is on covid precautions currently, therefore CM was not able to see him today. CM attempted to call him in the room with no answer. Per report, he is here for recurrent pancreatitis. He has an appointment for pancreatic duct stenting on 09/16/22. He is NPO. CM will continue to follow. ADVANCE DIRECTIVES:: on file. Kendra [facility] Has patient been provided with info about the portal/API?: Yes Did the patient sign up for the portal?: Yes (active) CODE STATUS:: Full Code INSURANCE COVERAGE / FINANCIAL ISSUES:: [facility] CURRENT HOME/COMMUNITY SERVICES/EQUIPMENT:: no services but Cole is on disability. PRIMARY CARE PHYSICIAN:: Brian Longo POTENTIAL DISCHARGE NEEDS:: follow up with PCP PATIENT/FAMILY EDUCATION NEEDS:: Review of discharge instructions, follow up plan, medications, activity, limitations and discuss Ask Me Three ANTICIPATED BARRIERS TO DISCHARGE:: none TRANSPORTATION:: via private vehicle by Kendra. PLAN:: Anticipate Cole will return home once medically cleared. His spouse, Kendra, will drive him home via private vehicle. He will follow up with his PCP and discharge plan of care. CM will continue to follow. Readmission - Within the Past 30 Days Yes or No: Y - Date of First Admission Date of 1st Admission: 09/03/22 - Date of this Admission Date of Admission: 09/07/22 This admission was: Through ED - Office Visit Since 1st Admission Have you seen your PCP in the office since discharge?: No Had an appointment Been Scheduled?: No Describe barriers for scheduling or getting an appointment: discharged over the weekend - ED visits How many ED visits in the past 12 months: 11 - Assessment for Readmission Summary of readmission circumstances, based upon interviews: Cole was readmitted for recurrent pancreatitis. He reported that he felt ready for discharge prior to him going home on Thursday. He returned to the ED with severe mid abdominal pain. He is NPO and is being treated with IV fluids and IV analgesic. He will return home once medically cleared.
[2022-12-05 15:32] LABS: Lab Add On Test DONE
== END 2022-09-08 19:55 | disposition left against medical advice (07) | DRG 438 ==
LOC: ER 16:30 → MS 16:46
PROVIDERS: Admitting Provider Family Medicine; Emergency Provider Student in an Organized Health Care Education/Training Program; PCP Family Medicine; Visit Provider Family Medicine
DX: K85.90 Acute pancreatitis without necrosis or infection, unspecified (principal); U07.1 COVID-19; K86.3 Pseudocyst of pancreas; Z79.899 Other long term (current) drug therapy; K86.1 Other chronic pancreatitis; F17.210 Nicotine dependence, cigarettes, uncomplicated; R07.89 Other chest pain; Z89.511 Acquired absence of right leg below knee; H90.3 Sensorineural hearing loss, bilateral; F41.9 Anxiety disorder, unspecified; J45.909 Unspecified asthma, uncomplicated; K21.9 Gastro-esophageal reflux disease without esophagitis; G47.00 Insomnia, unspecified; R73.9 Hyperglycemia, unspecified; M54.50 Low back pain, unspecified; G62.9 Polyneuropathy, unspecified; E78.5 Hyperlipidemia, unspecified
CPT/HCPCS: 36415; 80053; 83690; 85027; 87635; 94640; 96361; 96374; 96375; 99285; 84100; 85025; 99222; 99232; J0131; J1170; J1644; J7613

== ENCOUNTER 2022-09-14 01:29 | Emergency (ER) | payer MEDICARE, MEDICAID, SELFPAY ==
[2022-09-14] VITALS (36 sets, daily range): BP systolic 86–119; BP diastolic 38–88; PULSE 63–96; RESP 13–25; TEMP 36.7; O2SAT 90–97
--- NOTE | 2022-09-14 02:03 | ED.GENADUL_ITS ---
Discharge Plan Disposition Patient Disposition: Home Condition: Improving Discharge Details Chief Complaint: Abd Prob Clinical Impression: Pancreatic pseudocyst Primary Care Provider: Brian Longo ED Provider: Rolo Aguilar Home Meds and New Rx's Prescriptions: No Action budesonide-formoterol [Symbicort] 80-4.5 mcg/actuation HFA aerosol inhaler 1 puff Inhalation BID Qty: 1 11RF albuterol sulfate [ProAir HFA] 90 mcg/actuation HFA aerosol inhaler 2 puff Inhalation Q6H PRN PRN (Reason: bronchospasm) Qty: 1 3RF atorvastatin 40 mg tablet 40 mg PO DAILY Qty: 90 3RF pantoprazole 40 mg tablet,delayed release (DR/EC) 40 mg PO BID Qty: 180 3RF sertraline 100 mg tablet 200 mg PO DAILY Qty: 180 3RF Rx Instructions: dose increase 04/19/21 dose increase 09/17/21 fluticasone propionate 50 mcg/actuation spray,suspension 2 spray intranasal DAILY Qty: 9.9 5RF Rx Instructions: administer into each nostril (DME) nebulizer and compressor [Comp-Air Elite [employer] Neb System] 1 EACH device 1 ea Miscellaneous q 4 h prn Qty: 1 ipratropium-albuterol 0.5 mg-3 mg(2.5 mg base)/3 mL solution for nebulization 3 ml inhalation QID PRN (Reason: wheezing) Qty: 90 3RF ezetimibe [Zetia] 10 mg tablet 10 mg PO DAILY Qty: 90 3RF Trulance 3 mg tablet 3 mg PO DAILY Qty: 90 3RF Creon 12,000-38,000 -60,000 unit capsule,delayed release(DR/EC) 1 cap PO BID Qty: 60 2RF Rx Instructions: administer with meals and/or snacks acetaminophen 500 mg Tablet 1,000 mg PO PRN PRN ondansetron 4 mg tablet,disintegrating 4 mg PO Q6H PRNQty: 14 1RF tamsulosin 0.4 mg Capsule 0.4 mg PO DAILY Qty: 30 0RF Discharge Instructions Instructions: Acute Nausea and Vomiting (ED) Additional Instructions: Please follow-up with your primary as well as surgical team that will be placing pancreatic stent. Return to the emergency department for any worsening symptoms Medical Decision Making 47-year-old male history of recurrent pancreatitis, scheduled to have pancreatic duct stent at [facility] later this month, presents with nausea vomiting and diarrhea over the last day. Slightly improved after warm shower. No active vomiting. Abdomen soft nontender nondistended. Hemodynamically stable afebrile nontoxic. Consider resolving gastroenteritis versus recurrent pancreatitis versus gastritis versus less likely bowel structure cardiac etiology. Screening labs fluids analgesia antiemetics close reassessment. 09/14 6: 20 patient resting comfortably no acute distress no further vomiting or diarrhea department. Labs unremarkable. Evidence of pseudocyst. Patient to follow-up with GI/surgical team as scheduled. Sign Out No HPI General Date/Time Provider Initiated Documentation: 09/14/22 01:35 . HPI Narrative: 47-year-old male history of recurrent pancreatitis, scheduled for pancreatic duct stenting at [facility] this month. Presents with nausea vomiting and diarrhea over the past day. Slightly improved symptomatology after a warm shower. Related Data Home Medications Medication Instructions Recorded Confirmed nebulizer and compressor (Comp-Air #1 ea 07/16/16 09/14/22 Elite Comp Neb System device) atorvastatin 40 mg tablet 40 mg PO DAILY #90 tab-caps 09/17/21 09/14/22 pantoprazole 40 mg tablet,delayed 40 mg PO BID #180 tab-caps 09/17/21 09/14/22 release sertraline 100 mg tablet 200 mg PO DAILY #180 tabs 09/17/21 09/14/22 fluticasone propionate 50 2 spray intranasal DAILY #9.9 grams 11/13/21 09/14/22 mcg/actuation nasal spray,suspension acetaminophen 500 mg tablet 1,000 mg PO PRN PRN 11/23/21 09/14/22 ipratropium 0.5 mg-albuterol 3 mg 3 ml inhalation QID PRN wheezing 12/05/21 09/14/22 (2.5 mg base)/3 mL nebulization #90 mL soln ezetimibe 10 mg tablet (Zetia) 10 mg PO DAILY #90 tab-caps 12/23/21 09/14/22 albuterol sulfate 90 mcg/actuation 2 puff inhalation Q6H PRN PRN 01/24/22 09/14/22 aerosol inhaler (ProAir HFA) bronchospasm #1 inh budesonide-formoterol HFA 80 1 puff inhalation BID ##1 01/24/22 09/14/22 mcg-4.5 mcg/actuation aerosol inhaler (Symbicort) ondansetron 4 mg disintegrating 4 mg PO Q6H PRN #14 tabs 05/30/22 09/14/22 tablet plecanatide 3 mg tablet (Trulance) 3 mg PO DAILY constipation #90 tabs 05/31/22 09/14/22 [id number] 1 cap PO BID #60 caps 06/10/22 09/14/22 12,000-38,000-60,000 unit capsule,delayed rel (Creon) tamsulosin 0.4 mg capsule 0.4 mg PO DAILY #30 caps 09/05/22 09/14/22 Previous Rx's Medication Instructions Recorded atorvastatin 40 mg tablet 40 mg PO DAILY #90 tab-caps 09/17/21 pantoprazole 40 mg tablet,delayed 40 mg PO BID #180 tab-caps 09/17/21 release sertraline 100 mg tablet 200 mg PO DAILY #180 tabs 09/17/21 fluticasone propionate 50 2 spray intranasal DAILY #9.9 grams 11/13/21 mcg/actuation nasal spray,suspension ipratropium 0.5 mg-albuterol 3 mg 3 ml inhalation QID PRN wheezing 12/05/21 (2.5 mg base)/3 mL nebulization #90 mL soln ezetimibe 10 mg tablet (Zetia) 10 mg PO DAILY #90 tab-caps 12/23/21 albuterol sulfate 90 mcg/actuation 2 puff inhalation Q6H PRN PRN 01/24/22 aerosol inhaler (ProAir HFA) bronchospasm #1 inh budesonide-formoterol HFA 80 1 puff inhalation BID ##1 01/24/22 mcg-4.5 mcg/actuation aerosol inhaler (Symbicort) ondansetron 4 mg disintegrating 4 mg PO Q6H PRN #14 tabs 05/30/22 tablet plecanatide 3 mg tablet (Trulance) 3 mg PO DAILY constipation #90 tabs 05/31/22 [id number] 1 cap PO BID #60 caps 06/10/22 12,000-38,000-60,000 unit capsule,delayed rel (Creon) tamsulosin 0.4 mg capsule 0.4 mg PO DAILY #30 caps 09/05/22 Allergies Allergy/AdvReac Type Severity Reaction Status Date / Time Fish Containing Products Allergy Intermediate hives Verified 09/14/22 01:37 aspirin AdvReac Intermediate epistaxis Verified 09/14/22 01:37 seafood Allergy Intermediate Hives Uncoded 09/14/22 01:37 hydrocodone-homatropine AdvReac Intermediate GI UPSET Uncoded 09/14/22 01:37 General Stated Complaint: Abd Prob DONG: 3 Review of Systems Narrative: Review of Systems Constitutional: negative Eyes: negative ENT: negative Cardiovascular: negative Respiratory: negative Gastrointestinal: Nausea vomiting diarrhea : negative Musculoskeletal: negative Skin: negative Neurologic: negative Psych: negative PFSH All Active Problems (Updated 09/14/22 @ 06:22 by Rolo Aguilar MD) COVID-19 (Acute) Acute pancreatitis (Acute) Continuous tobacco abuse (Chronic) Chest pain at rest (Acute) RADIATION DOWN HIS ARMS Tobacco use (Chronic) Below-knee amputation of right lower extremity (Acute) Acute cholecystitis (Acute) Skin ulcer (Acute) Pancreatic pseudocyst (Chronic) S/P BKA (below knee amputation) (Acute) Sensorineural hearing loss (SNHL) of both ears (Acute) Chest pain (Acute) Abnormal flushing and sweating (Acute) Neck pain on left side (Acute) Pancreatitis (Chronic) Medical History Acquired deformity of nail s/p nail excision and matrix ablation 11/10/19 Ankle pain right, chronic Ankle pain, left Anxiety Arthritis Arthritis FOOT/ANKLE 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 Asthma 09/15/12 Burning sensation of feet Callous ulcer REFERRED TO DERM 12/22/13 Constipation due to opioid therapy Curvature of spine S/P FIXATION WITH RODS Cyst of skin TOP OF LEFT FOOT-PAINFUL Deafness Depression with anxiety Fracture of distal phalanx of right index finger Snowblowing injury Ganglion cyst Gastritis GERD (gastroesophageal reflux disease) History of reduction of closed fracture Hyperglycemia Hyperlipidemia Hypoglycemia Insomnia Leg pain, right Lipoma Loss of taste Low back pain Low back pain associated with a spinal disorder other than radiculopathy or spinal stenosis Lung nodules Migraine Mood disorder deteriorated Neck pain Neuropathy Pain, foot, right, chronic Partial Achilles tendon tear left 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 Snowblowing injury causing partial amputation Surgical revision of amputation DOS: 08/31/18 Partial traumatic transphalangeal amputation of right ring finger Snowblowing injury causing partial amputation Surgical revision of amputation DOS: 08/31/18 Right ankle joint deformity Right leg numbness Scrotal lesion Sebaceous cyst Sensorineural hearing loss of both ears Sinus headache Sprain of unspecified ligament of left ankle, subsequent encounter (06/30/16) Testicular pain, right 11/10/12-COMES AND GOES tobacco abuse Viral warts Wart of hand Surgical History Excision, Skin Mass 2008-LUQ LIPOMA Fracture, Closed Treatment ANKLE History of back surgery History of excision of mass History of neck surgery History of spinal surgery History of surgical 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 reports putting hand in attic blower Hx of arthroscopic knee surgery Hx of right BKA 11/21/21 [facility] [place] (Dr Murray) NECK SURGERY 09/19-WITH METAL PLATE Open Carpal Tunnel release 204-RIGHT Postsurgical arthrodesis status (08/22/20) rt ankle Status post carpal tunnel release Tibial fracture S/P tibial nail fixation. Family History Father Alcohol abuse Essential hypertension Heart disease Neoplasm Stroke Mother Essential hypertension COPD (chronic obstructive pulmonary disease) Depression Hyperlipidemia Neoplasm Stroke Asthma [place] ADHD (attention deficit hyperactivity disorder) Sister No problems noted. Brother Essential hypertension Grandfather Diabetes Alcohol abuse Grandfather Brain tumor Stroke Grandmother Diabetes Grandmother Heart disease Neoplasm Cervical cancer Stroke Family History Blood disorder Neoplasm Stomach,melanoma Social History Smoking/Tobacco Use Status: Current every day Tobacco Type: cigarettes Tobacco: How many years used: 30 Second Hand Exposure: Yes Counseling given: provider counseling Smoking risk assessment performed?: Yes Alcohol Intake: former Drug use: Never Substance use type: does not use Details: Stated 6 mos sobriety Household members: spouse Housing: apartment Number of Children: 4 Communication Needs: Hard of Hearing Do you need help understanding health information?: Rarely Pets and animals: Yes Pets and animals: cat(s) and dog(s) Sexually active: No Do you think of yourself as: straight/heterosexual Current gender identity: female What is your relationship status?: How often do you talk on the phone with friends or family?: three or more times per week Do you belong to any clubs or organized social groups?: no Panel score (0-1 are the most socially isolated patients): 2 What type of physical activity do you participate in: walking, aerobic and swimming Duration: < 15 minutes/day Mariajose/Baptism: No preference Special mariajose needs: No Seatbelt use: always Helmet use: No Drive intox or ride w/intox hazardous materials driver: No Do you feel safe at home: Yes Do you feel safe in your relationship?: Yes Exam Narrative Exam Narrative: Physical Examination General: alert, awake, cooperative, resting comfortably, no acute distress HEENT: normocephalic, atraumatic; PERRL, EOM intact, conjunctiva normal; no nasal discharge; moist mucous membranes, oral and pharyngeal mucosa normal, tolerating secretions Neck: supple, trachea midline; full ROM Chest: normal to inspection Respiratory: normal respiratory effort, speaking in full sentences, clear to auscultation, no wheezing, rales or rhonchi Cardiac: regular rate, regular rhythm, S1S2 intact, no murmurs rubs or gallops GI: abdomen soft, non-tender, non-distended; no palpable mass or hepatosplenomegaly Skin: no lesions, rashes or trauma appreciated Neuro: AAOx3, normal speech, moving all extremities Psych: Appropriate mood and affect Course Vital Signs Vital signs: Vital Signs Temperature 36.7 C 09/14/22 01:33 Pulse 89 09/14/22 01:33 Respiratory Rate 15 09/14/22 01:33 Blood Pressure 115/88 09/14/22 01:33 Pulse Oximetry 97 09/14/22 01:33 Temperature 36.7 C 09/14/22 01:33 Temperature Source Skin 09/14/22 01:33 Pulse 89 09/14/22 01:33 Respiratory Rate 15 09/14/22 01:33 Respiratory Effort 09/14/22 01:33 Blood Pressure 115/88 09/14/22 01:33 Blood Pressure Position Supine 09/14/22 01:33 Pulse Oximetry 97 09/14/22 01:33 Oxygen Delivery Method Room Air 09/14/22 01:33 Oxygen Flow Rate 0 09/14/22 01:33 Pain Level 10 09/14/22 01:33
[2022-09-14 02:06] LABS: Abs Immature Grans 0.03 10^3/uL (0.0-0.06); Absolute Basophil Count 0.02 10^3/uL (0.0-0.2); Absolute Eosinophil Count 0.07 10^3/uL (0.0-0.7); Absolute Lymphocyte Count 3.02 10^3/uL (1.2-3.4); Absolute Monocyte Count 0.74 10^3/uL (0.1-0.8); Basophils % 0.2; Eosinophils % 0.8; HCT 46.3 % (40.0-50.0); HGB 15.3 g/dL (13.5-17.5); Immature Grans % 0.3; Lymphocytes % 33.6; MCH 27.6 pg (27.0-33.0); MCV 83 fL (80-95); MPV 9.8 fL (8.0-11.0); Monocytes % 8.2; Neutrophils % 56.9; Platelet Count 217 10^3/uL (130-400); RBC 5.55 10^6/uL (4.36-5.78); RDW 14.4 % (11.8-14.1); RDW-SD 43.6 fL; WBC 8.98 10^3/uL (4.4-10.8)
[2022-09-14] MEDS: LORazepam 2 MG/ML VIAL 1 MG IVP (02:15)
[2022-09-14] MEDS: ACETAMINOPHEN 1,000 MG/100 ML BTL 400 MG IVPB (02:16)
[2022-09-14] MEDS: Ondansetron 4 MG/2 ML VIAL IVP (02:16)
[2022-09-14] MEDS: Normal Saline 1,000 ML 1000 ML IV ×2 (02:17→04:05)
[2022-09-14 02:21] LABS: ALT 27 U/L (16-63); AST 23 U/L (15-37); Albumin 3.6 g/dL (3.4-5.0); Alkaline Phosphatase 118 U/L (46-116); Anion Gap 8.2 mmol/L (3-11); BUN 11 mg/dL (7-18); Bilirubin, Total 0.7 mg/dL (0.2-1.0); CO2 28.8 mmol/L (21.0-32.0); Calcium 9.2 mg/dL (8.5-10.1); Chloride 99 mmol/L (98-107); Estimated GFR 92.26 (mL/min/1.73m2); Glucose 134 mg/dL (74-106); Lipase 385 U/L (73-393); Potassium 3.2 mmol/L (3.5-5.1); Sodium 136 mmol/L (136-145); Total Protein 7.9 g/dL (6.4-8.2)
--- NOTE | 2022-09-14 05:00 | DI.CT_ITS ---
Exam(s) CT ABDOMEN PELVIS W EXAM: CT ABDOMEN PELVIS W CLINICAL HISTORY: abd pain, hx of pancreatitis. TECHNIQUE: Imaging Protocol: Axial computed tomography images with coronal and sagittal reformatted images were created and reviewed CONTRAST MATERIAL: Intravenous: Omnipaque 350 Contrast volume:100 ml Oral: no COMPARISON: CT CT ABDOMEN PELVIS W from 09/03/2022 FINDINGS: ABDOMEN: Lung Bases: Bibasilar atelectasis. Liver: Normal density. No measurable mass. Gallbladder and biliary tract: Status post cholecystectomy. No radiodense calculus or dilation. Pancreas: Stable size and appearance of pancreatic head pseudocyst., No abnormal calcifications or ac [place] inflammatory process. Spleen: Normal. Kidneys: Normal size, contour and axis. No radiodense stones or obstructive uropathy. No masses seen. Adrenal glands: No masses seen. Abdominal Aorta: Abdominal portion non-dilated. Soft tissues: Tiny fat containing umbilical hernia. Tiny fat contained left inguinal hernia. PELVIS: Bladder: Distended. No gross wall thickening. No calculi.No focal mass. Bowel: No obstruction or bowel wall thickening. Appendix normal. Peritoneal cavity: No ascites, collection or mesenteric inflammatory response. Bones: Hardware lower lumbar spine. Degenerative changes. Reproductive organs: Within normal limits. Lymph nodes: Unremarkable. Impression: 4.5 centimeter cyst in the head of the pancreas, unchanged. No acute abnormality. RADIATION DOSE DELIVERED: 906.68mGy.cm Total DLP DATA REPOSITORY: All CT scans at this facility are submitted to the National Radiology Data Registry (NRDR) Dose Index Registry (DIR) with the [employer] [place] [employer] (ACR). RADIATION OPTIMIZATION: All CT scans at this facility use at least one of these dose optimization te chniques: automated exposure control; mA and/or kV adjustment per patient size (includes targeted exa ms where dose is matched to clinical indication); or iterative reconstruction.
[2022-09-14] MEDS: Omnipaque 350 MG/ML 100 ML BTL IJ (05:28)
[2022-09-14] MEDS: Normal Saline - Diluent 50 ML VIAL IV (05:29)
--- NOTE | 2022-09-14 06:09 | DI.VRAD_ITS ---
PROCEDURE INFORMATION: Exam: CT Abdomen And Pelvis With Contrast Exam date and time: 09/14/2022 5:22 AM Age: 47 years old Clinical indication: Other: Abd pain, HX of pancreatitis TECHNIQUE: Imaging protocol: Computed tomography of the abdomen and pelvis with contrast. Radiation optimization: All CT scans at this facility use at least one of these dose optimization techniques: automated exposure control; mA and/or kV adjustment per patient size (includes targeted exams where dose is matched to clinical indication); or iterative reconstruction. Contrast material: 350; Contrast volume: 100 ml; Contrast route: INTRAVENOUS (IV); COMPARISON: CT ABDOMEN PELVIS W 09/03/2022 10:07 PM FINDINGS: Lungs: Streaky and dependent atelectasis. Liver: Normal appearing liver. Gallbladder and bile ducts: Prior cholecystectomy with mild postop biliary prominence. Pancreas: 4.5 cm round fluid density finding arising in the pancreatic head, also seen on the prior exam, presumably a pancreatic pseudocyst. Minimal hazy fat stranding adjacent to the pancreatic head and proximal body. Normal-appearing pancreatic body and tail. Spleen: Normal appearing spleen. Adrenal glands: Normal appearing adrenal glands. Kidneys and ureters: Normal appearing kidneys. No hydronephrosis. No obstructing ureteral stones. Stomach and bowel: No oral contrast. Stomach partially decompressed. No small bowel dilatation to suggest obstruction. Normal-appearing colon. No evidence of diverticulitis or colitis. Appendix: Normal appendix, partially obscured. Intraperitoneal space: No gross ascites or free air. Small fat containing left inguinal region hernia. Vasculature: Normal caliber abdominal aorta. Lymph nodes: No pathologically enlarged mesenteric, retroperitoneal, or pelvic sidewall lymph nodes. Urinary bladder: Prominent distention of the urinary bladder measuring 10 cm x 9 cm x 10 cm. Reproductive: Normal-appearing prostate gland and seminal vesicles. Bones/joints: No acute fracture seen among the bones of the abdomen or pelvis. Spinal degenerative change with discogenic degeneration at multiple levels. Prior lumbar surgery with posterior decompression and L4-S1 fusion. Preserved small S1-S2 disc. Soft tissues: Tiny fat-containing ventral hernia at the umbilicus, doubtful clinical significance. IMPRESSION: 1. 4.5 cm pancreatic pseudocyst in the region of the pancreatic head. Minimal hazy fat stranding adjacent to the pancreatic head and proximal body. Correlation with laboratory values is recommended to exclude acute pancreatitis. The imaging appearance is borderline in this regard. 2. No acute bowel pathology demonstrated. 3. Prominent distention of the urinary bladder. This appearance may represent a normal full bladder; however, correlation with micturition history is recommended to exclude delayed bladder emptying, urinary retention, or bladder outlet obstruction. Dictated and Authenticated by: David Antonio MD. Ordering:JILL Seth MD
== END 2022-09-14 06:30 | disposition home or self-care (01) ==
PROVIDERS: Emergency Provider Emergency Medicine; PCP Family Medicine
DX: K86.3 Pseudocyst of pancreas (principal); Z79.51 Long term (current) use of inhaled steroids; Z79.52 Long term (current) use of systemic steroids; Z86.16 Personal history of COVID-19
CPT/HCPCS: 80053; 83690; 96361; 96374; 96375; 99285; 74177; 85025; 99284; J0131; J2060; J2405; J3490

== ENCOUNTER 2022-09-14 16:04 | Emergency (ER) | payer MEDICARE, MEDICAID, SELFPAY ==
[2022-09-14] VITALS (33 sets, daily range): BP systolic 92–128; BP diastolic 44–70; PULSE 63–95; RESP 14–24; TEMP 35.5–35.9; O2SAT 88–99
--- NOTE | 2022-09-14 16:23 | ED.GENADUL_ITS ---
Discharge Plan Disposition Patient Disposition: Home Condition: Stable Discharge Details Clinical Impression: Pancreatitis Primary Care Provider: Brian Longo ED Provider: Shawna Zuniga Home Meds and New Rx's Prescriptions: New ondansetron 4 mg tablet,disintegrating 4 mg PO Q8H PRN5 Days Qty: 15 0RF Continued budesonide-formoterol [Symbicort] 80-4.5 mcg/actuation HFA aerosol inhaler 1 puff Inhalation BID Qty: 1 11RF albuterol sulfate [ProAir HFA] 90 mcg/actuation HFA aerosol inhaler 2 puff Inhalation Q6H PRN PRN (Reason: bronchospasm) Qty: 1 3RF atorvastatin 40 mg tablet 40 mg PO DAILY Qty: 90 3RF pantoprazole 40 mg tablet,delayed release (DR/EC) 40 mg PO BID Qty: 180 3RF sertraline 100 mg tablet 200 mg PO DAILY Qty: 180 3RF Rx Instructions: dose increase 04/19/21 dose increase 09/17/21 fluticasone propionate 50 mcg/actuation spray,suspension 2 spray intranasal DAILY Qty: 9.9 5RF Rx Instructions: administer into each nostril (DME) nebulizer and compressor [Comp-Air Elite Comp Neb System] 1 EACH device 1 ea Miscellaneous q 4 h prn Qty: 1 ipratropium-albuterol 0.5 mg-3 mg(2.5 mg base)/3 mL solution for nebulization 3 ml inhalation QID PRN (Reason: wheezing) Qty: 90 3RF ezetimibe [Zetia] 10 mg tablet 10 mg PO DAILY Qty: 90 3RF Trulance 3 mg tablet 3 mg PO DAILY Qty: 90 3RF Creon 12,000-38,000 -60,000 unit capsule,delayed release(DR/EC) 1 cap PO BID Qty: 60 2RF Rx Instructions: administer with meals and/or snacks acetaminophen 500 mg Tablet 1,000 mg PO PRN PRN ondansetron 4 mg tablet,disintegrating 4 mg PO Q6H PRNQty: 14 1RF tamsulosin 0.4 mg Capsule 0.4 mg PO DAILY Qty: 30 0RF Discharge Instructions Instructions: Abdominal Pain (ED) Additional Instructions: Please take the pain medication, yogurt or probiotic as directed. Take the nausea medication 20 minutes prior to eating or drinking anything up to 3 times daily. Follow up with primary care provider in 3-5 days. Return to ED sooner if any worsening or concerns. Increase oral fluids. Referrals: Brian Longo MD [Primary Care Provider] - 3 days Medical Decision Making 47-year-old male with a past medical history of pancreatitis presents for the second time today to the ER with chief complaint of nausea vomiting abdominal pain. He reports that after he left here he laid down and then woke up with abdominal pain and nausea vomiting and dry heaving again. He also reports mucousy diarrhea. He denies any other associated symptoms or concerns. IV, 1 L LR, hydromorphone and Zofran ordered. 1726: Patient reevaluation he is still complaining of 10 abdominal pain. Toradol and lorazepam ordered. Patient sleeping, appears much more comfortable, plan to DC home with instructions to follow up with GI and or PCP as previously instructed. This text was generated using [employer] dictation system, please disregard any oddities of phrase or misspellings. Medical Records Medical records reviewed: Yes I reviewed the patient's medical records. Medical records narrative: Patient had complete work-up prior to this visit today do not feel Labs necessary at this time. Sign Out No HPI General Mode of arrival: ambulatory . Date/Time Provider Initiated Documentation: 09/14/22 16:09 . Limitations to Documentation: no limitations . Information obtained by: patient, RN notes reviewed and old records reviewed . HPI Narrative: 47-year-old male with a past medical history of pancreatitis presents for the second time today to the ER with chief complaint of nausea vomiting abdominal pain. He reports that after he left here he laid down and then woke up with abdominal pain and nausea vomiting and dry heaving again. He also reports mucousy diarrhea. He denies any other associated symptoms or concerns. He reports he does not have anything at home for nausea or pain. He did have a full work-up this morning with labs and CT imaging I do not feel this needs to be repeated at this time. Related Data Home Medications Medication Instructions Recorded Confirmed nebulizer and compressor (Comp-Air #1 ea 07/16/16 09/14/22 Elite Comp Neb System device) atorvastatin 40 mg tablet 40 mg PO DAILY #90 tab-caps 09/17/21 09/14/22 pantoprazole 40 mg tablet,delayed 40 mg PO BID #180 tab-caps 09/17/21 09/14/22 release sertraline 100 mg tablet 200 mg PO DAILY #180 tabs 09/17/21 09/14/22 fluticasone propionate 50 2 spray intranasal DAILY #9.9 grams 11/13/21 09/14/22 mcg/actuation nasal spray,suspension acetaminophen 500 mg tablet 1,000 mg PO PRN PRN 11/23/21 09/14/22 ipratropium 0.5 mg-albuterol 3 mg 3 ml inhalation QID PRN wheezing 12/05/21 09/14/22 (2.5 mg base)/3 mL nebulization #90 mL soln ezetimibe 10 mg tablet (Zetia) 10 mg PO DAILY #90 tab-caps 12/23/21 09/14/22 albuterol sulfate 90 mcg/actuation 2 puff inhalation Q6H PRN PRN 01/24/22 09/14/22 aerosol inhaler (ProAir HFA) bronchospasm #1 inh budesonide-formoterol HFA 80 1 puff inhalation BID ##1 01/24/22 09/14/22 mcg-4.5 mcg/actuation aerosol inhaler (Symbicort) ondansetron 4 mg disintegrating 4 mg PO Q6H PRN #14 tabs 05/30/22 09/14/22 tablet plecanatide 3 mg tablet (Trulance) 3 mg PO DAILY constipation #90 tabs 05/31/22 09/14/22 [id number]-virboexm-xfkcmfm 1 cap PO BID #60 caps 06/10/22 09/14/22 12,000-38,000-60,000 unit capsule,delayed rel (Creon) tamsulosin 0.4 mg capsule 0.4 mg PO DAILY #30 caps 09/05/22 09/14/22 ondansetron 4 mg disintegrating 4 mg PO Q8H PRN 5 days #15 tabs 09/14/22 tablet Previous Rx's Medication Instructions Recorded atorvastatin 40 mg tablet 40 mg PO DAILY #90 tab-caps 09/17/21 pantoprazole 40 mg tablet,delayed 40 mg PO BID #180 tab-caps 09/17/21 release sertraline 100 mg tablet 200 mg PO DAILY #180 tabs 09/17/21 fluticasone propionate 50 2 spray intranasal DAILY #9.9 grams 11/13/21 mcg/actuation nasal spray,suspension ipratropium 0.5 mg-albuterol 3 mg 3 ml inhalation QID PRN wheezing 12/05/21 (2.5 mg base)/3 mL nebulization #90 mL soln ezetimibe 10 mg tablet (Zetia) 10 mg PO DAILY #90 tab-caps 12/23/21 albuterol sulfate 90 mcg/actuation 2 puff inhalation Q6H PRN PRN 01/24/22 aerosol inhaler (ProAir HFA) bronchospasm #1 inh budesonide-formoterol HFA 80 1 puff inhalation BID ##1 01/24/22 mcg-4.5 mcg/actuation aerosol inhaler (Symbicort) ondansetron 4 mg disintegrating 4 mg PO Q6H PRN #14 tabs 05/30/22 tablet plecanatide 3 mg tablet (Trulance) 3 mg PO DAILY constipation #90 tabs 05/31/22 fzfdgw-jvqwmhey-fuxardd 1 cap PO BID #60 caps 06/10/22 12,000-38,000-60,000 unit capsule,delayed rel (Creon) tamsulosin 0.4 mg capsule 0.4 mg PO DAILY #30 caps 09/05/22 ondansetron 4 mg disintegrating 4 mg PO Q8H PRN 5 days #15 tabs 09/14/22 tablet Allergies Allergy/AdvReac Type Severity Reaction Status Date / Time Fish Containing Products Allergy Intermediate hives Verified 09/14/22 16:14 aspirin AdvReac Intermediate epistaxis Verified 09/14/22 16:14 seafood Allergy Intermediate Hives Uncoded 09/14/22 16:14 hydrocodone-homatropine AdvReac Intermediate GI UPSET Uncoded 09/14/22 16:14 General Stated Complaint: Abd Prob DONG: 3 Review of Systems All systems reviewed & are unremarkable except as noted in HPI and below Gastrointestinal Gastrointestinal: Reports as per HPI, Reports abdominal pain, Reports diarrhea, Reports nausea and Reports vomiting PFSH All Active Problems (Updated 09/14/22 @ 18:51 by Shawna Zuniga NP) COVID-19 (Acute) Acute pancreatitis (Acute) Continuous tobacco abuse (Chronic) Chest pain at rest (Acute) RADIATION DOWN HIS ARMS Tobacco use (Chronic) Below-knee amputation of right lower extremity (Acute) Acute cholecystitis (Acute) Skin ulcer (Acute) Pancreatic pseudocyst (Chronic) S/P BKA (below knee amputation) (Acute) Sensorineural hearing loss (SNHL) of both ears (Acute) Chest pain (Acute) Abnormal flushing and sweating (Acute) Neck pain on left side (Acute) Pancreatitis (Chronic) Medical History Acquired deformity of nail s/p nail excision and matrix ablation 11/10/19 Ankle pain right, chronic Ankle pain, left Anxiety Arthritis Arthritis FOOT/ANKLE 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 Asthma 09/15/12 Burning sensation of feet Callous ulcer REFERRED TO DERM 12/22/13 Constipation due to opioid therapy Curvature of spine S/P FIXATION WITH RODS Cyst of skin TOP OF LEFT FOOT-PAINFUL Deafness Depression with anxiety Fracture of distal phalanx of right index finger Snowblowing injury Ganglion cyst Gastritis GERD (gastroesophageal reflux disease) History of reduction of closed fracture Hyperglycemia Hyperlipidemia Hypoglycemia Insomnia Leg pain, right Lipoma Loss of taste Low back pain Low back pain associated with a spinal disorder other than radiculopathy or spinal stenosis Lung nodules Migraine Mood disorder deteriorated Neck pain Neuropathy Pain, foot, right, chronic Partial Achilles tendon tear left 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 Snowblowing injury causing partial amputation Surgical revision of amputation DOS: 08/31/18 Partial traumatic transphalangeal amputation of right ring finger Snowblowing injury causing partial amputation Surgical revision of amputation DOS: 08/31/18 Right ankle joint deformity Right leg numbness Scrotal lesion Sebaceous cyst Sensorineural hearing loss of both ears Sinus headache Sprain of unspecified ligament of left ankle, subsequent encounter (06/30/16) Testicular pain, right 11/10/12-COMES AND GOES tobacco abuse Viral warts Wart of hand Surgical History Excision, Skin Mass 2009-LUQ LIPOMA Fracture, Closed Treatment ANKLE History of back surgery History of excision of mass History of neck surgery History of spinal surgery History of surgical 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 Family History Father Alcohol abuse Essential hypertension Heart disease Neoplasm Stroke Mother Essential hypertension COPD (chronic obstructive pulmonary disease) Depression Hyperlipidemia Neoplasm Stroke Asthma SIBLING ADHD (attention deficit hyperactivity disorder) Sister No problems noted. Brother Essential hypertension Grandfather Diabetes Alcohol abuse Grandfather Brain tumor Stroke Grandmother Diabetes Grandmother Heart disease Neoplasm Cervical cancer Stroke Family History Blood disorder Neoplasm Stomach,melanoma Social History Smoking/Tobacco Use Status: Current every day Tobacco Type: cigarettes Tobacco: How many years used: 30 Second Hand Exposure: Yes Counseling given: provider counseling Smoking risk assessment performed?: Yes Alcohol Intake: former Drug use: Never Substance use type: does not use Details: Stated 6 mos sobriety Household members: spouse Housing: apartment Number of Children: 4 Communication Needs: Hard of Hearing Do you need help understanding health information?: Rarely Pets and animals: Yes Pets and animals: cat(s) and dog(s) Sexually active: No Do you think of yourself as: straight/heterosexual Current gender identity: female What is your relationship status?: How often do you talk on the phone with friends or family?: three or more times per week Do you belong to any clubs or organized social groups?: no Panel score (0-1 are the most socially isolated patients): 2 What type of physical activity do you participate in: walking, aerobic and swimming Duration: < 15 minutes/day Mariajose/Baptist: No preference Special mariajose needs: No Seatbelt use: always Helmet use: No Drive intox or ride w/intox driver starting gate: No Do you feel safe at home: Yes Do you feel safe in your relationship?: Yes Exam Narrative Exam Narrative: Constitutional: Alert and oriented x3. Appears stated age. Normal body habitus. Appears uncomfortable. Head: Normocephalic, no trauma. Eyes: Pupils PERRL, Red reflex noted, EOM's intact. Eyelids symmetrical without lesions, discharge, or swelling. ENT: Bilateral TM's WNL, External ear normal to inspection, no mastoid TTP, swelling, or erythema, Nasal turbinates WNL, no nasal discharge. Normal dentition, Posterior pharynx WNL, no exudate. Chest: RRR, Normal S1, S2, distal pulses intact. Resp: Lungs clear to auscultation bilaterally, no wheezes, rales, or rhonchi. Abdomen: Soft, non-distended, Normoactive bowel sounds all 4 quads. Tenderness noted in the left upper and right upper quadrants palpation. Musculoskeletal: Unable to assess gait, right below-knee amputation 5/5 strength to all four extremities. Skin: No suspicious rashes or lesions. Capillary refill less than 2 sec. Neurologic: Cranial nerves II-XII intact. Alert and oriented x 3. Motor: No deficits noted. Sensory: Intact bilaterally all 4 extremities. Reflexes: DTR's intact bilaterally.. Hematologic/Lymphatic: No ecchymosis, no lymphadenopathy. Course Vital Signs Vital signs: Vital Signs Temperature 35.9 C L 09/14/22 16:09 Pulse 70 09/14/22 16:09 Respiratory Rate 18 09/14/22 16:09 Blood Pressure 128/54 L 09/14/22 16:09 Pulse Oximetry 99 09/14/22 16:09 Temperature 35.9 C L 09/14/22 16:09 Temperature Source Tympanic 09/14/22 16:09 Pulse 70 09/14/22 16:09 Respiratory Rate 18 09/14/22 16:09 Respiratory Effort Non-Labored 09/14/22 16:15 Blood Pressure 128/54 L 09/14/22 16:09 Blood Pressure Position Sitting 09/14/22 16:09 Pulse Oximetry 99 09/14/22 16:09 Oxygen Delivery Method Room Air 09/14/22 16:09 Oxygen Flow Rate 0 09/14/22 16:09
[2022-09-14] MEDS: Lactated Ringers 1,000 ML 1000 ML IV (16:30)
[2022-09-14] MEDS: Ondansetron 4 MG/2 ML VIAL IVP (16:36)
[2022-09-14] MEDS: HYDROmorphone 2 MG/ML SYR 1 MG IVP (16:39)
[2022-09-14] MEDS: Ketorolac 30 MG/ML VIAL IVP (17:40)
[2022-09-14] MEDS: LORazepam 2 MG/ML VIAL 0.5 MG IVP (17:41)
[2022-09-14] MEDS: Ondansetron O.D.T. 4 MG TABEF, 3 TABS/BTL PO (18:58)
== END 2022-09-14 19:09 | disposition home or self-care (01) ==
PROVIDERS: Emergency Provider Registered Nurse Emergency; PCP Family Medicine
DX: K85.90 Acute pancreatitis without necrosis or infection, unspecified (principal)
CPT/HCPCS: 80053; 83690; 96361; 96374; 96375; 99284; 99285; 74177; 85025; 99283; J0131; J1170; J1885; J2060; J2405; J3490

== ENCOUNTER 2022-09-15 20:12 | Emergency (ER) | payer MEDICARE, MEDICAID, SELFPAY ==
[2022-09-15 20:16] VITALS: BP 144/62; PULSE 81; RESP 20; TEMP 36.6; O2SAT 100
--- NOTE | 2022-09-15 20:25 | ED.GENADUL_ITS ---
Discharge Plan Disposition Patient Disposition: Home Condition: Improving Discharge Details Clinical Impression: Recurrent abdominal pain Primary Care Provider: Brian Longo ED Provider: Roberta Gonzalez Home Meds and New Rx's Prescriptions: Continued budesonide-formoterol [Symbicort] 80-4.5 mcg/actuation HFA aerosol inhaler 1 puff Inhalation BID Qty: 1 11RF albuterol sulfate [ProAir HFA] 90 mcg/actuation HFA aerosol inhaler 2 puff Inhalation Q6H PRN PRN (Reason: bronchospasm) Qty: 1 3RF atorvastatin 40 mg tablet 40 mg PO DAILY Qty: 90 3RF pantoprazole 40 mg tablet,delayed release (DR/EC) 40 mg PO BID Qty: 180 3RF sertraline 100 mg tablet 200 mg PO DAILY Qty: 180 3RF Rx Instructions: dose increase 04/19/21 dose increase 09/17/21 fluticasone propionate 50 mcg/actuation spray,suspension 2 spray intranasal DAILY Qty: 9.9 5RF Rx Instructions: administer into each nostril (DME) nebulizer and compressor [Comp-Air Elite [employer] Neb System] 1 EACH device 1 ea Miscellaneous q 4 h prn Qty: 1 ipratropium-albuterol 0.5 mg-3 mg(2.5 mg base)/3 mL solution for nebulization 3 ml inhalation QID PRN (Reason: wheezing) Qty: 90 3RF ezetimibe [Zetia] 10 mg tablet 10 mg PO DAILY Qty: 90 3RF Trulance 3 mg tablet 3 mg PO DAILY Qty: 90 3RF Creon 12,000-38,000 -60,000 unit capsule,delayed release(DR/EC) 1 cap PO BID Qty: 60 2RF Rx Instructions: administer with meals and/or snacks acetaminophen 500 mg Tablet 1,000 mg PO PRN PRN ondansetron 4 mg tablet,disintegrating 4 mg PO Q6H PRNQty: 14 1RF tamsulosin 0.4 mg Capsule 0.4 mg PO DAILY Qty: 30 0RF ondansetron 4 mg tablet,disintegrating 4 mg PO Q8H PRN5 Days Qty: 15 0RF No Action ketorolac 10 mg tablet 10 mg PO TID PRN (Reason: pain) 10 Days Qty: 30 0RF Discharge Instructions Instructions: Chronic Pain (ED), Abdominal Pain (ED) Additional Instructions: Your blood tests today are reassuring and show no evidence of acute concerning or significant findings. Follow-up with your scheduled surgery tomorrow at [facility]. Take the oxycodone as needed and directed for pain. Follow-up with your primary care doctor in 1 week. Return to the emergency department with any worsening or new concerning symptoms. Discharge Data Discharge Date/Time-TO BE ENTERED AT DEPARTURE: 09/15/22 23:13 Discharge Physician: Roberta Gonzalez Medical Decision Making 47-year-old male with a history of hypertension, hyperlipidemia, GERD, seizures, asthma, anxiety, depression, tobacco abuse, BKA of right lower extremity with history of gallstone pancreatitis status post cholecystectomy over 1 year ago, pancreatic pseudocyst and admitted twice in the past month for recurrent pancreatitis with planned stent placement with GI at [facility] on 09/16/2022 presents for recurrent abdominal pain. Of note, he left AMA from the hospital on his second admission last week and was seen in the ED twice yesterday for similar pain. His vitals are within normal limits. He is afebrile and appears uncomfortable but nontoxic. His abdomen is tense but no rigidity or guarding and is tender mainly in the upper abdomen. Will obtain screening labs and give a bolus of IVF and a dose of Dilaudid IV. Labs reviewed and reassuring. Normal white blood cell count. Lipase within normal limits. Normal liver function tests. Patient reassessed and he feels much better and would like to go home. He was able to tolerate PO. Will send home with a 4 tab bottle of oxycodone. He has surgery scheduled for 7 AM tomorrow at [facility]. Advised to follow up with the primary care doctor for re-evaluation. Usual and customary return precautions given prior to discharge. Medical Records Medical records reviewed: Yes I reviewed the patient's medical records. Lab Data Lab results reviewed: Yes I reviewed the patient's lab results. Labs: Laboratory Tests Range/Units 09/15/22 09/15/22 20:30 20:30 WBC (4.4-10.8) 10^3/uL 7.87 RBC (4.36-5.78) 10^6/uL 5.21 Hgb (13.5-17.5) g/dL 14.4 Hct (40.0-50.0) % 44.3 MCV (80-95) fL 85 MCH (27.0-33.0) pg 27.6 MCHC (32.0-36.0) % 32.5 RDW (11.8-14.1) % 14.5 H Plt Count (130-400) 10^3/uL 207 MPV (8.0-11.0) fL 9.5 Immature Gran % 0.3 Neutrophils % 59.3 Lymphocytes % 33.2 Monocytes % 5.8 Eosinophils % 1.3 Basophils % 0.1 Nucleated RBC % (0.0-0.3) % 0.0 Absolute Neutrophils (1.2-6.7) 10^3/uL 4.67 Absolute Lymphocytes (1.2-3.4) 10^3/uL 2.61 Absolute Monocytes (0.1-0.8) 10^3/uL 0.46 Absolute Eosinophils (0.0-0.7) 10^3/uL 0.10 Absolute Basophils (0.0-0.2) 10^3/uL 0.01 Sodium (136-145) mmol/L 138 Potassium (3.5-5.1) mmol/L 3.4 L Chloride (98-107) mmol/L 101 Carbon Dioxide (21.0-32.0) mmol/L 29.2 Anion Gap (3-11) mmol/L 7.8 BUN (7-18) mg/dL 7 Creatinine (0.70-1.30) mg/dL 0.8 Est GFR (CKD-EPI 2020) (mL/min/1.73m2) 108.49 Glucose (74-106) mg/dL 132 H Calcium (8.5-10.1) mg/dL 9.0 Total Bilirubin (0.2-1.0) mg/dL 0.6 AST (15-37) U/L 18 ALT (16-63) U/L 23 Alkaline Phosphatase (46-116) U/L 113 Total Protein (6.4-8.2) g/dL 7.3 Albumin (3.4-5.0) g/dL 3.4 Lipase (73-393) U/L 281 Sign Out No HPI General Mode of arrival: ambulatory . Date/Time Provider Initiated Documentation: 09/15/22 20:14 . Limitations to Documentation: no limitations . Information obtained by: patient . HPI Narrative: Patient is a 47-year-old male with a history of hypertension, hyperlipidemia, GERD, seizures, asthma, anxiety, depression, tobacco abuse, BKA of right lower extremity with history of gallstone pancreatitis status post cholecystectomy over 1 year ago, pancreatic pseudocyst and admitted here twice in the past month for recurrent pancreatitis with planned stent placement at [facility] on 09/16/2022 presents with persistent abdominal pain. Of note, he left from the floor AMA last week and was seen in the ED twice yesterday for similar pain. He states he was given oxycodone to go and his last dose was 3 AM this morning. He states it allows him some relief of the pain but then the pain returns. He states he is still scheduled for his pancreatic stent tomorrow. Patient admits to nausea but denies any vomiting or diarrhea today. He denies any fever and states his last bowel movement was this morning. Related Data Home Medications Medication Instructions Recorded Confirmed nebulizer and compressor (Comp-Air #1 ea 07/16/16 09/17/22 Elite Comp Neb System device) atorvastatin 40 mg tablet 40 mg PO DAILY #90 tab-caps 09/17/21 09/17/22 pantoprazole 40 mg tablet,delayed 40 mg PO BID #180 tab-caps 09/17/21 09/17/22 release sertraline 100 mg tablet 200 mg PO DAILY #180 tabs 09/17/21 09/17/22 fluticasone propionate 50 2 spray intranasal DAILY #9.9 grams 11/13/21 09/17/22 mcg/actuation nasal spray,suspension acetaminophen 500 mg tablet 1,000 mg PO PRN PRN 11/23/21 09/17/22 ipratropium 0.5 mg-albuterol 3 mg 3 ml inhalation QID PRN wheezing 12/05/21 09/17/22 (2.5 mg base)/3 mL nebulization #90 mL soln ezetimibe 10 mg tablet (Zetia) 10 mg PO DAILY #90 tab-caps 12/23/21 09/17/22 albuterol sulfate 90 mcg/actuation 2 puff inhalation Q6H PRN PRN 01/24/22 09/17/22 aerosol inhaler (ProAir HFA) bronchospasm #1 inh budesonide-formoterol HFA 80 1 puff inhalation BID ##1 01/24/22 09/17/22 mcg-4.5 mcg/actuation aerosol inhaler (Symbicort) ondansetron 4 mg disintegrating 4 mg PO Q6H PRN #14 tabs 05/30/22 09/17/22 tablet plecanatide 3 mg tablet (Trulance) 3 mg PO DAILY constipation #90 tabs 05/31/22 09/17/22 [id number] 1 cap PO BID #60 caps 06/10/22 09/17/22 12,000-38,000-60,000 unit capsule,delayed rel (Creon) tamsulosin 0.4 mg capsule 0.4 mg PO DAILY #30 caps 09/05/22 09/17/22 ondansetron 4 mg disintegrating 4 mg PO Q8H PRN 5 days #15 tabs 09/14/22 09/17/22 tablet ketorolac 10 mg tablet 10 mg PO TID PRN pain 10 days #30 09/17/22 09/17/22 tabs Previous Rx's Medication Instructions Recorded atorvastatin 40 mg tablet 40 mg PO DAILY #90 tab-caps 09/17/21 pantoprazole 40 mg tablet,delayed 40 mg PO BID #180 tab-caps 09/17/21 release sertraline 100 mg tablet 200 mg PO DAILY #180 tabs 09/17/21 fluticasone propionate 50 2 spray intranasal DAILY #9.9 grams 11/13/21 mcg/actuation nasal spray,suspension ipratropium 0.5 mg-albuterol 3 mg 3 ml inhalation QID PRN wheezing 12/05/21 (2.5 mg base)/3 mL nebulization #90 mL soln ezetimibe 10 mg tablet (Zetia) 10 mg PO DAILY #90 tab-caps 12/23/21 albuterol sulfate 90 mcg/actuation 2 puff inhalation Q6H PRN PRN 01/24/22 aerosol inhaler (ProAir HFA) bronchospasm #1 inh budesonide-formoterol HFA 80 1 puff inhalation BID ##1 01/24/22 mcg-4.5 mcg/actuation aerosol inhaler (Symbicort) ondansetron 4 mg disintegrating 4 mg PO Q6H PRN #14 tabs 05/30/22 tablet plecanatide 3 mg tablet (Trulance) 3 mg PO DAILY constipation #90 tabs 05/31/22 [id number] 1 cap PO BID #60 caps 06/10/22 12,000-38,000-60,000 unit capsule,delayed rel (Creon) tamsulosin 0.4 mg capsule 0.4 mg PO DAILY #30 caps 09/05/22 ondansetron 4 mg disintegrating 4 mg PO Q8H PRN 5 days #15 tabs 09/14/22 tablet ketorolac 10 mg tablet 10 mg PO TID PRN pain 10 days #30 09/17/22 tabs Allergies Allergy/AdvReac Type Severity Reaction Status Date / Time Fish Containing Products Allergy Intermediate hives Verified 09/15/22 20:19 aspirin AdvReac Intermediate epistaxis Verified 09/15/22 20:19 seafood Allergy Intermediate Hives Uncoded 09/15/22 20:19 hydrocodone-homatropine AdvReac Intermediate GI UPSET Uncoded 09/15/22 20:19 General Stated Complaint: Abd Prob DONG: 3 Review of Systems All systems reviewed & are unremarkable except as noted in HPI and below Constitutional Constitutional: Reports as per HPI, Denies chills and Denies fever(s) Eyes Eyes: Denies blurry vision ENT Ears, Nose, Mouth, and Throat: Denies dizziness, Denies sore throat and Denies throat swelling Cardiovascular Cardiovascular: Denies chest pain and Denies dyspnea Respiratory Respiratory: Denies cough and Denies dyspnea Gastrointestinal Gastrointestinal: Reports abdominal pain, Denies diarrhea, Reports nausea and Denies vomiting Genitourinary Genitourinary: Denies hematuria and Denies dysuria Musculoskeletal Musculoskeletal: Denies back pain and Denies numbness Integumentary/Breasts Skin/Breast: Denies lesions and Denies rash Neurologic Neurologic: Denies dizziness, Denies localized weakness and Denies numbness Allergic/Immunologic Allergic/Immunologic: Denies throat swelling PFSH All Active Problems (Updated 09/16/22 @ 00:08 by MICHOACANO GUILLEN) Recurrent abdominal pain (Acute) COVID-19 (Acute) Acute pancreatitis (Acute) Continuous tobacco abuse (Chronic) Chest pain at rest (Acute) RADIATION DOWN HIS ARMS Tobacco use (Chronic) Below-knee amputation of right lower extremity (Acute) Acute cholecystitis (Acute) Skin ulcer (Acute) Pancreatic pseudocyst (Chronic) S/P BKA (below knee amputation) (Acute) Sensorineural hearing loss (SNHL) of both ears (Acute) Chest pain (Acute) Abnormal flushing and sweating (Acute) Neck pain on left side (Acute) Medical History Acquired deformity of nail s/p nail excision and matrix ablation 11/10/19 Ankle pain right, chronic Ankle pain, left Anxiety Arthritis Arthritis FOOT/ANKLE 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 Asthma 09/15/12 Burning sensation of feet Callous ulcer REFERRED TO DERM 12/22/13 Constipation due to opioid therapy Curvature of spine S/P FIXATION WITH RODS Cyst of skin TOP OF LEFT FOOT-PAINFUL Deafness Depression with anxiety Fracture of distal phalanx of right index finger Snowblowing injury Ganglion cyst Gastritis GERD (gastroesophageal reflux disease) History of reduction of closed fracture Hyperglycemia Hyperlipidemia Hypoglycemia Insomnia Leg pain, right Lipoma Loss of taste Low back pain Low back pain associated with a spinal disorder other than radiculopathy or spinal stenosis Lung nodules Migraine Mood disorder deteriorated Neck pain Neuropathy Pain, foot, right, chronic Partial Achilles tendon tear left 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 Snowblowing injury causing partial amputation Surgical revision of amputation DOS: 08/31/18 Partial traumatic transphalangeal amputation of right ring finger Snowblowing injury causing partial amputation Surgical revision of amputation DOS: 08/31/18 Right ankle joint deformity Right leg numbness Scrotal lesion Sebaceous cyst Sensorineural hearing loss of both ears Sinus headache Sprain of unspecified ligament of left ankle, subsequent encounter (06/30/16) Testicular pain, right 11/10/12-COMES AND GOES tobacco abuse Viral warts Wart of hand Surgical History Excision, Skin Mass 2008-LUQ LIPOMA Fracture, Closed Treatment ANKLE History of back surgery History of excision of mass History of neck surgery History of spinal surgery History of surgical 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 Family History Father Alcohol abuse Essential hypertension Heart disease Neoplasm Stroke Mother Essential hypertension COPD (chronic obstructive pulmonary disease) Depression Hyperlipidemia Neoplasm Stroke Asthma SIBLING ADHD (attention deficit hyperactivity disorder) Sister No problems noted. Brother Essential hypertension Grandfather Diabetes Alcohol abuse Grandfather Brain tumor Stroke Grandmother Diabetes Grandmother Heart disease Neoplasm Cervical cancer Stroke Family History Blood disorder Neoplasm Stomach,melanoma Social History Smoking/Tobacco Use Status: Current every day Tobacco Type: cigarettes Tobacco: How many years used: 30 Second Hand Exposure: Yes Counseling given: provider counseling Smoking risk assessment performed?: Yes Alcohol Intake: former Drug use: Never Substance use type: does not use Details: Stated 6 mos sobriety Household members: spouse Housing: apartment Number of Children: 4 Communication Needs: Hard of Hearing Do you need help understanding health information?: Rarely Pets and animals: Yes Pets and animals: cat(s) and dog(s) Sexually active: No Do you think of yourself as: straight/heterosexual Current gender identity: female What is your relationship status?: How often do you talk on the phone with friends or family?: three or more times per week Do you belong to any clubs or organized social groups?: no Panel score (0-1 are the most socially isolated patients): 2 What type of physical activity do you participate in: walking, aerobic and swimming Duration: < 15 minutes/day Mariajose/Faith: No preference Special mariajose needs: No Seatbelt use: always Helmet use: No Drive intox or ride w/intox escort car driver: No Do you feel safe at home: Yes Do you feel safe in your relationship?: Yes Exam Const General: cooperative and uncomfortable Orientation: alert, awake and oriented x3 HENMT Head: normal to inspection Face and sinus: normal facial exam Eyes General: appearance normal, both eyes and all related structures Neck Neck: normal visual inspection and No submandibular swelling Lymphatic: no lymphadenopathy noted Chest Chest: normal inspection of the chest and no tenderness Resp Effort & Inspection: normal respiratory effort and able to speak in complete sentences Auscultation: clear to auscultation bilaterally Cardio Rate: regular rate Rhythm: regular rhythm GI Inspection: normal to inspection Palpation: soft, not firm, not rigid and tender in the epigastrum, in the LUQ and in the RUQ Auscultation: hypoactive bowel sounds Skin General skin exam: no rashes or lesions noted Neuro General: patient alert, patient awake and patient oriented x3 Cognition: normal cognition Speech: speech normal Motor: muscle tone normal throughout Sensory Exam: no sensory deficits noted Extrem General: normal to inspection, full ROM, capillary refill normal, no calf tenderness bilaterally and no edema Psych Appearance: grossly normal Mental Status: mental status grossly normal Speech and Movement: speech and movement normal Affect: normal affect Course Vital Signs Vital signs: Vital Signs Temperature 97.9 F 09/15/22 20:16 Pulse 81 09/15/22 20:16 Respiratory Rate 20 09/15/22 20:16 Blood Pressure 144/62 H 09/15/22 20:16 Pulse Oximetry 100 09/15/22 20:16 Temperature 97.9 F 09/15/22 20:16 Temperature Source Tympanic 09/15/22 20:16 Pulse 81 09/15/22 20:16 Respiratory Rate 20 09/15/22 20:16 Respiratory Effort 09/15/22 20:22 Blood Pressure 144/62 H 09/15/22 20:16 Blood Pressure Position Supine 09/15/22 20:16 Pulse Oximetry 100 09/15/22 20:16 Oxygen Delivery Method Room Air 09/15/22 20:16 Oxygen Flow Rate 0 09/15/22 20:16 Pain Level 10 09/15/22 20:16
[2022-09-15 20:36] LABS: Abs Immature Grans 0.02 10^3/uL (0.0-0.06); Absolute Basophil Count 0.01 10^3/uL (0.0-0.2); Absolute Lymphocyte Count 2.61 10^3/uL (1.2-3.4); Absolute Monocyte Count 0.46 10^3/uL (0.1-0.8); Absolute Neutrophil Count 4.67 10^3/uL (1.2-6.7); Basophils % 0.1; Eosinophils % 1.3; HCT 44.3 % (40.0-50.0); HGB 14.4 g/dL (13.5-17.5); Immature Grans % 0.3; Lymphocytes % 33.2; MCH 27.6 pg (27.0-33.0); MCHC 32.5 % (32.0-36.0); MCV 85 fL (80-95); MPV 9.5 fL (8.0-11.0); Monocytes % 5.8; Neutrophils % 59.3; Platelet Count 207 10^3/uL (130-400); RBC 5.21 10^6/uL (4.36-5.78); RDW 14.5 % (11.8-14.1); RDW-SD 44.8 fL; WBC 7.87 10^3/uL (4.4-10.8)
[2022-09-15 20:51] LABS: ALT 23 U/L (16-63); AST 18 U/L (15-37); Albumin 3.4 g/dL (3.4-5.0); Alkaline Phosphatase 113 U/L (46-116); Anion Gap 7.8 mmol/L (3-11); BUN 7 mg/dL (7-18); Bilirubin, Total 0.6 mg/dL (0.2-1.0); CO2 29.2 mmol/L (21.0-32.0); CREATININE 0.8 mg/dL (0.70-1.30); Chloride 101 mmol/L (98-107); Estimated GFR 108.49 (mL/min/1.73m2); Glucose 132 mg/dL (74-106); Lipase 281 U/L (73-393); Potassium 3.4 mmol/L (3.5-5.1); Sodium 138 mmol/L (136-145); Total Protein 7.3 g/dL (6.4-8.2)
[2022-09-15] MEDS: HYDROmorphone 2 MG/ML SYR 1 MG IVP (21:00)
[2022-09-15] MEDS: Ondansetron 4 MG/2 ML VIAL IVP (21:01)
[2022-09-15] MEDS: Normal Saline 1,000 ML 1000 ML IV (21:01)
[2022-09-15] MEDS: Famotidine 20 MG/2 ML VIAL IVP (21:42)
== END 2022-09-15 23:13 | disposition home or self-care (01) ==
PROVIDERS: Emergency Provider Physician Assistant; PCP Family Medicine
DX: R10.9 Unspecified abdominal pain (principal)
CPT/HCPCS: 80053; 83690; 96361; 96374; 96375; 99284; 85025; 99283; J1170; J2405

== ENCOUNTER 2022-09-20 20:33 | Observation (INO) | payer MEDICARE, MEDICAID, SELFPAY ==
[2022-09-20 20:41] VITALS: BP 122/62; PULSE 66; RESP 16; TEMP 35.9; O2SAT 99
[2022-09-20 21:20] LABS: Abs Immature Grans 0.03 10^3/uL (0.0-0.06); Absolute Basophil Count 0.03 10^3/uL (0.0-0.2); Absolute Eosinophil Count 0.13 10^3/uL (0.0-0.7); Absolute Lymphocyte Count 3.71 10^3/uL (1.2-3.4); Absolute Monocyte Count 0.56 10^3/uL (0.1-0.8); Absolute Neutrophil Count 4.83 10^3/uL (1.2-6.7); Basophils % 0.3; Eosinophils % 1.4; HCT 46.5 % (40.0-50.0); Immature Grans % 0.3; Lymphocytes % 39.9; MCH 27.5 pg (27.0-33.0); MCHC 32.3 % (32.0-36.0); MCV 85 fL (80-95); MPV 9.5 fL (8.0-11.0); Neutrophils % 52.1; Platelet Count 262 10^3/uL (130-400); RBC 5.45 10^6/uL (4.36-5.78); RDW 14.6 % (11.8-14.1); RDW-SD 45.7 fL; WBC 9.29 10^3/uL (4.4-10.8)
[2022-09-20 21:36] LABS: ALT 27 U/L (16-63); AST 15 U/L (15-37); Albumin 3.6 g/dL (3.4-5.0); Alkaline Phosphatase 154 U/L (46-116); Anion Gap 8.6 mmol/L (3-11); BUN 11 mg/dL (7-18); Bilirubin, Total 0.4 mg/dL (0.2-1.0); CO2 29.4 mmol/L (21.0-32.0); CREATININE 0.8 mg/dL (0.70-1.30); Calcium 9.2 mg/dL (8.5-10.1); Chloride 106 mmol/L (98-107); Estimated GFR 108.49 (mL/min/1.73m2); Glucose 98 mg/dL (74-106); Lipase 614 U/L (73-393); Magnesium 1.7 mg/dL (1.8-2.4); Potassium 3.7 mmol/L (3.5-5.1); Sodium 144 mmol/L (136-145); Total Protein 7.6 g/dL (6.4-8.2); Troponin I < 50 ng/L (<or=60)
--- NOTE | 2022-09-20 21:38 | ED.GENADUL_ITS ---
Discharge Plan Disposition Patient Disposition: Admit to [facility] Condition: Stable Discharge Details Clinical Impression: Acute on chronic pancreatitis Admit Date/Time: 09/20/22 22:32 Admit Provider: Ren Gibson Attending Provider: Ren Gibson Primary Care Provider: Brian Longo ED Provider: Roberta Gonzalez Discharge Data Discharge Date/Time-TO BE ENTERED AT DEPARTURE: 09/21/22 00:30 Medical Decision Making 47-year-old male with a history of gallstone pancreatitis and cholecystectomy over 1 year ago now with recurrent pancreatitis with several admissions recently for acute pancreatitis who was scheduled for pancreatic stent at [facility] on 1130 but they were unable to perform the procedure and now plan is to follow-up with general surgery at [facility] for consideration for pancreas surgery presents with return of his abdominal pain that started today. Vitals within normal limits. Patient appears slightly uncomfortable but nontoxic. His abdomen is tense but no signs of rigidity or guarding. Consider acute on chronic pancreatitis. We will place an IV, bolus IV fluids, screening labs, IV Tylenol, IV Toradol, IV Zofran and reassess. 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 Labs reviewed. Normal white blood cell count. Magnesium 1.7. Lipase elevated at 614. Case discussed with surgery on-call at [facility] --recommend admission as patient's pain returned today for IV fluids, IV pain control, n.p.o. overnight and continue to advance diet tomorrow as tolerated -- patient may need stronger pain meds as needed upon discharge to bridge him until his surgery. Discussed that patient will continue to have flareups of his pancreatitis as he has genuine disease until his issue is resolved surgically. Case discussed with hospitalist who accepts patient for admission. Patient is agreeable with plan for admission. Medical Records Medical records reviewed: Yes I reviewed the patient's medical records. Lab Data Lab results reviewed: Yes I reviewed the patient's lab results. Labs: Laboratory Tests Range/Units 09/20/22 09/20/22 21:10 21:10 WBC (4.4-10.8) 10^3/uL 9.29 RBC (4.36-5.78) 10^6/uL 5.45 Hgb (13.5-17.5) g/dL 15.0 Hct (40.0-50.0) % 46.5 MCV (80-95) fL 85 MCH (27.0-33.0) pg 27.5 MCHC (32.0-36.0) % 32.3 RDW (11.8-14.1) % 14.6 H Plt Count (130-400) 10^3/uL 262 MPV (8.0-11.0) fL 9.5 Immature Gran % 0.3 Neutrophils % 52.1 Lymphocytes % 39.9 Monocytes % 6.0 Eosinophils % 1.4 Basophils % 0.3 Nucleated RBC % (0.0-0.3) % 0.0 Absolute Neutrophils (1.2-6.7) 10^3/uL 4.83 Absolute Lymphocytes (1.2-3.4) 10^3/uL 3.71 H Absolute Monocytes (0.1-0.8) 10^3/uL 0.56 Absolute Eosinophils (0.0-0.7) 10^3/uL 0.13 Absolute Basophils (0.0-0.2) 10^3/uL 0.03 Sodium (136-145) mmol/L 144 Potassium (3.5-5.1) mmol/L 3.7 Chloride (98-107) mmol/L 106 Carbon Dioxide (21.0-32.0) mmol/L 29.4 Anion Gap (3-11) mmol/L 8.6 BUN (7-18) mg/dL 11 Creatinine (0.70-1.30) mg/dL 0.8 Est GFR (CKD-EPI 2020) (mL/min/1.73m2) 108.49 Glucose (74-106) mg/dL 98 Calcium (8.5-10.1) mg/dL 9.2 Magnesium (1.8-2.4) mg/dL 1.7 L Total Bilirubin (0.2-1.0) mg/dL 0.4 AST (15-37) U/L 15 ALT (16-63) U/L 27 Alkaline Phosphatase (46-116) U/L 154 H Troponin I (<or=60) ng/L < 50 Total Protein (6.4-8.2) g/dL 7.6 Albumin (3.4-5.0) g/dL 3.6 Lipase (73-393) U/L 614 H Sign Out No HPI General Mode of arrival: ambulatory . Date/Time Provider Initiated Documentation: 09/20/22 20:39 . Limitations to Documentation: no limitations . Information obtained by: patient . HPI Narrative: Patient is a 47-year-old male with a history of recurrent pancreatitis who has been seen in the emergency department multiple times recently for a complaint of abdominal pain associated with his pancreatitis who presents again for abdominal pain that started today. He states he had been doing well for the past 3 days and then his pain returned today. He states the pain is consistent with his usual pancreatitis flare. Of note, this is patient's 13th visit for abdominal related complaints in the last 8 months. This is the seventh visit in the last month for abdominal related complaints. Patient was scheduled for a pancreatic stent at [facility] on September 17 but this procedure was unable to be completed and he is now scheduled for a follow up appointment with Dr. Romero at [facility] on Sep.24 for further evaluation for possible pancreas surgery. Patient was seen at his PCP office on September 17 and patient requested a referral to pain management at that time but it was thought he would be better managed by his primary and was dispensed Toradol which patient states was unable to be covered by his insurance. Patient states he took an oxycodone that he was given here in the ED last week in addition to ibuprofen without relief. He states he vomited 4 times today which was mainly bile. Related Data Home Medications Medication Instructions Recorded Confirmed nebulizer and compressor (Comp-Air #1 ea 07/16/16 09/22/22 Elite Comp Neb System device) atorvastatin 40 mg tablet 40 mg PO DAILY #90 tab-caps 09/17/21 09/22/22 pantoprazole 40 mg tablet,delayed 40 mg PO BID #180 tab-caps 09/17/21 09/22/22 release fluticasone propionate 50 2 spray intranasal DAILY #9.9 grams 11/13/21 09/22/22 mcg/actuation nasal spray,suspension acetaminophen 500 mg tablet 1,000 mg PO PRN PRN 11/23/21 09/22/22 ipratropium 0.5 mg-albuterol 3 mg 3 ml inhalation QID PRN wheezing 12/05/21 09/22/22 (2.5 mg base)/3 mL nebulization #90 mL soln ezetimibe 10 mg tablet (Zetia) 10 mg PO DAILY #90 tab-caps 12/23/21 09/22/22 albuterol sulfate 90 mcg/actuation 2 puff inhalation Q6H PRN PRN 01/24/22 09/22/22 aerosol inhaler (ProAir HFA) bronchospasm #1 inh budesonide-formoterol HFA 80 1 puff inhalation BID ##1 01/24/22 09/22/22 mcg-4.5 mcg/actuation aerosol inhaler (Symbicort) ondansetron 4 mg disintegrating 4 mg PO Q6H PRN #14 tabs 05/30/22 09/22/22 tablet plecanatide 3 mg tablet (Trulance) 3 mg PO DAILY constipation #90 tabs 05/31/22 09/22/22 [id number] 1 cap PO BID #60 caps 06/10/22 09/22/22 12,000-38,000-60,000 unit capsule,delayed rel (Creon) tamsulosin 0.4 mg capsule 0.4 mg PO DAILY #30 caps 09/05/22 09/22/22 ketorolac 10 mg tablet 10 mg PO TID PRN pain 10 days #30 09/17/22 09/22/22 tabs sertraline 100 mg tablet 200 mg PO DAILY #180 tabs 09/24/22 Previous Rx's Medication Instructions Recorded atorvastatin 40 mg tablet 40 mg PO DAILY #90 tab-caps 09/17/21 pantoprazole 40 mg tablet,delayed 40 mg PO BID #180 tab-caps 09/17/21 release fluticasone propionate 50 2 spray intranasal DAILY #9.9 grams 11/13/21 mcg/actuation nasal spray,suspension ipratropium 0.5 mg-albuterol 3 mg 3 ml inhalation QID PRN wheezing 12/05/21 (2.5 mg base)/3 mL nebulization #90 mL soln ezetimibe 10 mg tablet (Zetia) 10 mg PO DAILY #90 tab-caps 12/23/21 albuterol sulfate 90 mcg/actuation 2 puff inhalation Q6H PRN PRN 01/24/22 aerosol inhaler (ProAir HFA) bronchospasm #1 inh budesonide-formoterol HFA 80 1 puff inhalation BID ##1 01/24/22 mcg-4.5 mcg/actuation aerosol inhaler (Symbicort) ondansetron 4 mg disintegrating 4 mg PO Q6H PRN #14 tabs 05/30/22 tablet plecanatide 3 mg tablet (Trulance) 3 mg PO DAILY constipation #90 tabs 05/31/22 [id number] 1 cap PO BID #60 caps 06/10/22 12,000-38,000-60,000 unit capsule,delayed rel (Creon) tamsulosin 0.4 mg capsule 0.4 mg PO DAILY #30 caps 09/05/22 ketorolac 10 mg tablet 10 mg PO TID PRN pain 10 days #30 09/17/22 tabs sertraline 100 mg tablet 200 mg PO DAILY #180 tabs 09/24/22 Allergies Allergy/AdvReac Type Severity Reaction Status Date / Time Fish Containing Products Allergy Intermediate hives Verified 09/22/22 21:08 aspirin AdvReac Intermediate epistaxis Verified 09/22/22 21:08 seafood Allergy Intermediate Hives Uncoded 09/22/22 21:08 hydrocodone-homatropine AdvReac Intermediate GI UPSET Uncoded 09/22/22 21:08 General Stated Complaint: Abd Prob DONG: 3 Review of Systems All systems reviewed & are unremarkable except as noted in HPI and below Constitutional Constitutional: Reports as per HPI, Denies chills and Denies fever(s) Eyes Eyes: Denies blurry vision ENT Ears, Nose, Mouth, and Throat: Denies dizziness, Denies sore throat and Denies throat swelling Cardiovascular Cardiovascular: Denies chest pain and Denies dyspnea Respiratory Respiratory: Denies cough and Denies dyspnea Gastrointestinal Gastrointestinal: Reports abdominal pain, Denies diarrhea and Denies vomiting Genitourinary Genitourinary: Denies hematuria and Denies dysuria Musculoskeletal Musculoskeletal: Denies back pain and Denies numbness Integumentary/Breasts Skin/Breast: Denies lesions and Denies rash Neurologic Neurologic: Denies dizziness, Denies localized weakness and Denies numbness Allergic/Immunologic Allergic/Immunologic: Denies throat swelling PFSH All Active Problems (Updated 09/24/22 @ 15:55 by Roberta Gonzalez DO) Acute on chronic pancreatitis (Acute) Recurrent abdominal pain (Acute) COVID-19 (Acute) Acute pancreatitis (Acute) Continuous tobacco abuse (Chronic) Chest pain at rest (Acute) RADIATION DOWN HIS ARMS Tobacco use (Chronic) Below-knee amputation of right lower extremity (Acute) Acute cholecystitis (Acute) Skin ulcer (Acute) S/P BKA (below knee amputation) (Acute) Sensorineural hearing loss (SNHL) of both ears (Acute) Chest pain (Acute) Abnormal flushing and sweating (Acute) Neck pain on left side (Acute) Medical History Acquired deformity of nail s/p nail excision and matrix ablation 11/10/19 Ankle pain right, chronic Ankle pain, left Anxiety Arthritis Arthritis FOOT/ANKLE 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 Asthma 09/15/12 Burning sensation of feet Callous ulcer REFERRED TO DERM 12/22/13 Constipation due to opioid therapy Curvature of spine S/P FIXATION WITH RODS Cyst of skin TOP OF LEFT FOOT-PAINFUL Deafness Depression with anxiety Fracture of distal phalanx of right index finger Snowblowing injury Ganglion cyst Gastritis GERD (gastroesophageal reflux disease) History of reduction of closed fracture Hyperglycemia Hyperlipidemia Hypoglycemia Insomnia Leg pain, right Lipoma Loss of taste Low back pain Low back pain associated with a spinal disorder other than radiculopathy or spinal stenosis Lung nodules Migraine Mood disorder deteriorated Neck pain Neuropathy Pain, foot, right, chronic Partial Achilles tendon tear left 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 Snowblowing injury causing partial amputation Surgical revision of amputation DOS: 08/31/18 Partial traumatic transphalangeal amputation of right ring finger Snowblowing injury causing partial amputation Surgical revision of amputation DOS: 08/31/18 Right ankle joint deformity Right leg numbness Scrotal lesion Sebaceous cyst Sensorineural hearing loss of both ears Sinus headache Sprain of unspecified ligament of left ankle, subsequent encounter (06/30/16) Testicular pain, right 11/10/12-COMES AND GOES tobacco abuse Viral warts Wart of hand Surgical History Excision, Skin Mass 2009-LUQ LIPOMA Fracture, Closed Treatment ANKLE History of back surgery History of excision of mass History of neck surgery History of spinal surgery History of surgical 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 Family History Father Alcohol abuse Essential hypertension Heart disease Neoplasm Stroke Mother Essential hypertension COPD (chronic obstructive pulmonary disease) Depression Hyperlipidemia Neoplasm Stroke Asthma SIBLING ADHD (attention deficit hyperactivity disorder) Sister No problems noted. Brother Essential hypertension Grandfather Diabetes Alcohol abuse Grandfather Brain tumor Stroke Grandmother Diabetes Grandmother Heart disease Neoplasm Cervical cancer Stroke Family History Blood disorder Neoplasm Stomach,melanoma Social History Smoking/Tobacco Use Status: Current every day Tobacco Type: cigarettes Tobacco: How many years used: 30 Second Hand Exposure: Yes Counseling given: provider counseling Smoking risk assessment performed?: Yes Alcohol Intake: former Drug use: Never Substance use type: does not use Details: Stated 6 mos sobriety Household members: spouse Housing: apartment Number of Children: 4 Communication Needs: Hard of Hearing Do you need help understanding health information?: Rarely Pets and animals: Yes Pets and animals: cat(s) and dog(s) Sexually active: No Do you think of yourself as: straight/heterosexual Current gender identity: female What is your relationship status?: How often do you talk on the phone with friends or family?: three or more times per week Do you belong to any clubs or organized social groups?: no Panel score (0-1 are the most socially isolated patients): 2 What type of physical activity do you participate in: walking, aerobic and swimming Duration: < 15 minutes/day Mariajose/Christianity: No preference Special mariajose needs: No Seatbelt use: always Helmet use: No Drive intox or ride w/intox 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 Do you feel safe at home: Yes Do you feel safe in your relationship?: Yes Exam Const General: cooperative and uncomfortable Orientation: alert, awake and oriented x3 HENMT Head: normal to inspection Face and sinus: normal facial exam Eyes General: appearance normal, both eyes and all related structures Pupils: PERRL EOM: EOM intact bilaterally Neck Neck: normal visual inspection and No submandibular swelling Lymphatic: no lymphadenopathy noted Chest Chest: normal inspection of the chest and no tenderness Resp Effort & Inspection: normal respiratory effort and able to speak in complete sentences Auscultation: clear to auscultation bilaterally Cardio Rate: regular rate Rhythm: regular rhythm GI Inspection: normal to inspection Palpation: soft, not firm, not rigid and tender (diffuse, worse in upper abdomen) Auscultation: hypoactive bowel sounds Skin General skin exam: no rashes or lesions noted Neuro General: patient alert, patient awake and patient oriented x3 Cognition: normal cognition Speech: speech normal Motor: muscle tone normal throughout Sensory Exam: no sensory deficits noted Extrem General: normal to inspection, full ROM, capillary refill normal, no calf tenderness bilaterally and no edema Psych Appearance: grossly normal Mental Status: mental status grossly normal Speech and Movement: speech and movement normal Affect: normal affect Course Vital Signs Vital signs: Vital Signs Temperature 96.6 F L 09/20/22 20:41 Pulse 66 09/20/22 20:41 Respiratory Rate 16 09/20/22 20:41 Blood Pressure 122/62 09/20/22 20:41 Pulse Oximetry 99 09/20/22 20:41 Temperature 96.6 F L 09/20/22 20:41 Temperature Source Tympanic 09/20/22 20:41 Pulse 66 09/20/22 20:41 Respiratory Rate 16 09/20/22 20:41 Respiratory Effort 09/20/22 20:41 Blood Pressure 122/62 09/20/22 20:41 Blood Pressure Position Sitting 09/20/22 20:41 Pulse Oximetry 99 09/20/22 20:41 Oxygen Delivery Method Room Air 09/20/22 20:41 Oxygen Flow Rate 0 09/20/22 20:41 Pain Level 9 09/20/22 21:20 Lab/Test Results Lab/Test Results: Laboratory Tests Range/Units 09/20/22 09/20/22 21:10 21:10 WBC (4.4-10.8) 10^3/uL 9.29 RBC (4.36-5.78) 10^6/uL 5.45 Hgb (13.5-17.5) g/dL 15.0 Hct (40.0-50.0) % 46.5 MCV (80-95) fL 85 MCH (27.0-33.0) pg 27.5 MCHC (32.0-36.0) % 32.3 RDW (11.8-14.1) % 14.6 H Plt Count (130-400) 10^3/uL 262 MPV (8.0-11.0) fL 9.5 Immature Gran % 0.3 Neutrophils % 52.1 Lymphocytes % 39.9 Monocytes % 6.0 Eosinophils % 1.4 Basophils % 0.3 Nucleated RBC % (0.0-0.3) % 0.0 Absolute Neutrophils (1.2-6.7) 10^3/uL 4.83 Absolute Lymphocytes (1.2-3.4) 10^3/uL 3.71 H Absolute Monocytes (0.1-0.8) 10^3/uL 0.56 Absolute Eosinophils (0.0-0.7) 10^3/uL 0.13 Absolute Basophils (0.0-0.2) 10^3/uL 0.03 Sodium (136-145) mmol/L 144 Potassium (3.5-5.1) mmol/L 3.7 Chloride (98-107) mmol/L 106 Carbon Dioxide (21.0-32.0) mmol/L 29.4 Anion Gap (3-11) mmol/L 8.6 BUN (7-18) mg/dL 11 Creatinine (0.70-1.30) mg/dL 0.8 Est GFR (CKD-EPI 2020) (mL/min/1.73m2) 108.49 Glucose (74-106) mg/dL 98 Calcium (8.5-10.1) mg/dL 9.2 Magnesium (1.8-2.4) mg/dL 1.7 L Total Bilirubin (0.2-1.0) mg/dL 0.4 AST (15-37) U/L 15 ALT (16-63) U/L 27 Alkaline Phosphatase (46-116) U/L 154 H Troponin I (<or=60) ng/L < 50 Total Protein (6.4-8.2) g/dL 7.6 Albumin (3.4-5.0) g/dL 3.6 Lipase (73-393) U/L 614 H
[2022-09-20] MEDS: Normal Saline 1,000 ML 1000 ML IV (22:00)
[2022-09-20] MEDS: Ondansetron 4 MG/2 ML VIAL IVP (22:00)
[2022-09-20] MEDS: Ketorolac 30 MG/ML VIAL IVP (22:05)
[2022-09-20] MEDS: ACETAMINOPHEN 1,000 MG/100 ML BTL 400 MG IVPB (22:10)
[2022-09-20 23:34] LABS: Source Nasal/Nares
[2022-09-20 23:38] VITALS: BP 102/52; PULSE 53; RESP 15; TEMP 36.7; O2SAT 94
[2022-09-21 00:05] LABS: COVID-19 PCR Negative (Negative)
[2022-09-21 00:45] VITALS: BP 121/70; PULSE 62; RESP 14; TEMP 36.2; O2SAT 97
[2022-09-21] MEDS: Normal Saline Flush 10 ML SYR IVP ×2 (00:50→01:36)
[2022-09-21] MEDS: MORPHine 4 MG/ML SYR IVP (00:50)
[2022-09-21 00:56] VITALS: BP 121/70; PULSE 62; RESP 14; TEMP 36.2; O2SAT 97
[2022-09-21] MEDS: Normal Saline 1,000 ML 150 ML IV ×2 (01:32→07:12)
[2022-09-21 03:35] VITALS: BP 109/65; PULSE 58; RESP 14; TEMP 36; O2SAT 95
--- NOTE | 2022-09-21 06:31 | HPE_ITS ---
Date of service: 09/21/22 Time of Service: 06:32 Assessment and Plan Assessment and plan (1) Recurrent abdominal pain: Status: Acute Assessment and plan: This recurrent chronic abdominal pain is due to recurrent chronic pancreatitis with acute exacerbation. He will be admitted to the hospital and placed on intravenous fluids and analgesics. Will be kept NPO. Emergency doctor discussed the situation with the specialist at [facility]. At this time his pain is improved and we will start him on clear fluids. We will recheck a magnesium level. He has scheduled to see general surgery at [facility] September 24. (2) Acute pancreatitis: Status: Acute (3) Continuous tobacco abuse: Status: Chronic (4) Pancreatic pseudocyst: Status: Chronic History of Present Illness History of Present Illness Chief Complaint: Abdominal pain Narrative: This 47-year-old male is here because of abdominal pain. This started yesterday afternoon. He had a history of recurrent pancreatitis for the last few months. He says that this difficulty started when it was thought that he had episode of gallstone pancreatitis in April of this year. He had a cholecystectomy. He has been managed both here as well as at [facility]. He had a recent attempt at [facility] to have a stent placed in his pancreas but it was not successful. He has been referred to surgery for further evaluation. That appointment is scheduled for September 24 at [facility]. He has a history of pseudocyst. He has had many recurrent emergency room visits and has had a few admissions to the hospital for the recurrent pancreatitis. This pain developed in the epigastrium yesterday and radiated to both sides of his abdomen. He had nausea and retching. He did not have any fever. He states he does not drink alcohol but does smoke a pack cigarettes per day. He is immunized for coronavirus. Of note, he had a right below the knee amputation in December of this year at [facility] for recurrent problems with his ankle and neuropathy. Review of Systems Constitutional Constitutional: Denies chills and Denies fever(s) ENT Ears, Nose, Mouth, and Throat: Denies dysphagia Cardiovascular Cardiovascular: Denies chest pain, Denies radiating jaw, neck or arm pain and Denies dyspnea Respiratory Respiratory: Denies dyspnea Gastrointestinal Gastrointestinal: Reports abdominal pain, Denies coffee ground emesis, Denies dysphagia, Reports nausea and Denies vomiting Genitourinary Genitourinary: Denies difficulty urinating Musculoskeletal Musculoskeletal: Denies back pain and Denies joint swelling PFSH All Active Problems (Updated 09/16/22 @ 00:08 by MICHOACANO GUILLEN) Recurrent abdominal pain (Acute) COVID-19 (Acute) Acute pancreatitis (Acute) Continuous tobacco abuse (Chronic) Chest pain at rest (Acute) RADIATION DOWN HIS ARMS Tobacco use (Chronic) Below-knee amputation of right lower extremity (Acute) Acute cholecystitis (Acute) Skin ulcer (Acute) Pancreatic pseudocyst (Chronic) S/P BKA (below knee amputation) (Acute) Sensorineural hearing loss (SNHL) of both ears (Acute) Chest pain (Acute) Abnormal flushing and sweating (Acute) Neck pain on left side (Acute) Medical History Acquired deformity of nail s/p nail excision and matrix ablation 11/10/19 Ankle pain right, chronic Ankle pain, left Anxiety Arthritis Arthritis FOOT/ANKLE 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 Asthma 09/15/12 Burning sensation of feet Callous ulcer REFERRED TO DERM 12/22/13 Constipation due to opioid therapy Curvature of spine S/P FIXATION WITH RODS Cyst of skin TOP OF LEFT FOOT-PAINFUL Deafness Depression with anxiety Fracture of distal phalanx of right index finger Snowblowing injury Ganglion cyst Gastritis GERD (gastroesophageal reflux disease) History of reduction of closed fracture Hyperglycemia Hyperlipidemia Hypoglycemia Insomnia Leg pain, right Lipoma Loss of taste Low back pain Low back pain associated with a spinal disorder other than radiculopathy or spi nal stenosis Lung nodules Migraine Mood disorder deteriorated Neck pain Neuropathy Pain, foot, right, chronic Partial Achilles tendon tear left 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 Snowblowing injury causing partial amputation Surgical revision of amputation DOS: 08/31/18 Partial traumatic transphalangeal amputation of right ring finger Snowblowing injury causing partial amputation Surgical revision of amputation DOS: 08/31/18 Right ankle joint deformity Right leg numbness Scrotal lesion Sebaceous cyst Sensorineural hearing loss of both ears Sinus headache Sprain of unspecified ligament of left ankle, subsequent encounter (06/30/16) Testicular pain, right 11/10/12-COMES AND GOES tobacco abuse Viral warts Wart of hand Surgical History Excision, Skin Mass 2008-LUQ LIPOMA Fracture, Closed Treatment ANKLE History of back surgery History of excision of mass History of neck surgery History of spinal surgery History of surgical 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 reports putting hand in application consultant Hx of arthroscopic knee surgery [place]x [place] right [place] [facility] [place]K SURG[place] 09/19-WITH METAL PLATE Open Carpal Tunnel release 204-RIGHT Postsurgical arthrodesis status (08/22/20) rt ankle Status post carpal tunnel release Tibial fracture S/P tibial nail fixation. Family History Father Alcohol abuse Essential hypertension Heart disease Neoplasm Stroke Mother Essential hypertension COPD (chronic obstructive pulmonary disease) Depression Hyperlipidemia Neoplasm Stroke Asthma SIBLING ADHD (attention deficit hyperactivity disorder) Sister No problems noted. Brother Essential hypertension Grandfather Diabetes Alcohol abuse Grandfather Brain tumor Stroke Grandmother Diabetes Grandmother Heart disease Neoplasm Cervical cancer Stroke Family History Blood disorder Neoplasm Stomach,melanoma Social History Smoking/Tobacco Use Status: Current every day Tobacco Type: cigarettes Tobacco: How many years used: 30 Second Hand Exposure: Yes Counseling given: provider counseling Smoking risk assessment performed?: Yes Alcohol Intake: former Drug use: Never Substance use type: does not use Details: Stated 6 mos sobriety Household members: spouse Housing: apartment Number of Children: 4 Communication Needs: Hard of Hearing Do you need help understanding health information?: Rarely Pets and animals: Yes Pets and animals: cat(s) and dog(s) Sexually active: No Do you think of yourself as: straight/heterosexual Current gender identity: female What is your relationship status?: How often do you talk on the phone with friends or family?: three or more times per week Do you belong to any clubs or organized social groups?: no Panel score (0-1 are the most socially isolated patients): 2 What type of physical activity do you participate in: walking, aerobic and swimming Duration: < 15 minutes/day Mariajose/Latter-Day: No preference Special mariajose needs: No Seatbelt use: always Helmet use: No Drive intox or ride w/intox trolley coach driver: No Do you feel safe at home: Yes Do you feel safe in your relationship?: Yes Meds Allergies and Home Medications Allergies Allergy/AdvReac Type Severity Reaction Status Date / Time Fish Containing Products Allergy Intermediate hives Verified 09/20/22 20:46 aspirin AdvReac Intermediate epistaxis Verified 09/20/22 20:46 seafood Allergy Intermediate Hives Uncoded 09/20/22 20:46 hydrocodone-homatropine AdvReac Intermediate GI UPSET Uncoded 09/20/22 20:46 Home Medications Medication Instructions Recorded Confirmed Type nebulizer and compressor (Comp-Air #1 ea 07/16/16 09/20/22 History Elite Comp Neb System device) atorvastatin 40 mg tablet 40 mg PO DAILY #90 tab-caps 09/17/21 09/20/22 Rx pantoprazole 40 mg tablet,delayed 40 mg PO BID #180 tab-caps 09/17/21 09/20/22 Rx release sertraline 100 mg tablet 200 mg PO DAILY #180 tabs 09/17/21 09/20/22 Rx fluticasone propionate 50 2 spray intranasal DAILY #9.9 grams 11/13/21 09/20/22 Rx mcg/actuation nasal spray,suspension acetaminophen 500 mg tablet 1,000 mg PO PRN PRN 11/23/21 09/20/22 History ipratropium 0.5 mg-albuterol 3 mg 3 ml inhalation QID PRN wheezing 12/05/21 09/20/22 Rx (2.5 mg base)/3 mL nebulization #90 mL soln ezetimibe 10 mg tablet (Zetia) 10 mg PO DAILY #90 tab-caps 12/23/21 09/20/22 Rx albuterol sulfate 90 mcg/actuation 2 puff inhalation Q6H PRN PRN 01/24/22 09/20/22 Rx aerosol inhaler (ProAir HFA) bronchospasm #1 inh budesonide-formoterol HFA 80 1 puff inhalation BID ##1 01/24/22 09/20/22 Rx mcg-4.5 mcg/actuation aerosol inhaler (Symbicort) ondansetron 4 mg disintegrating 4 mg PO Q6H PRN #14 tabs 05/30/22 09/20/22 Rx tablet plecanatide 3 mg tablet (Trulance) 3 mg PO DAILY constipation #90 tabs 05/31/22 09/20/22 Rx iolbfg-unnrfrlq-ilpcdou 1 cap PO BID #60 caps 06/10/22 09/20/22 Rx 12,000-38,000-60,000 unit capsule,delayed rel (Creon) tamsulosin 0.4 mg capsule 0.4 mg PO DAILY #30 caps 09/05/22 09/20/22 Rx ketorolac 10 mg tablet 10 mg PO TID PRN pain 10 days #30 09/17/22 09/20/22 Rx tabs Exam Narrative Exam Narrative: He appears greater than his stated age. He is in no distress. Const General: cooperative, comfortable and disheveled Nutritional Appearance: well nourished Orientation: alert and awake Neck Neck: normal visual inspection and no lymphadenopathy Resp Effort & Inspection: normal respiratory effort Auscultation: clear to auscultation bilaterally Cardio Rate: regular rate Rhythm: regular rhythm Heart Sounds: S1 normal, S2 normal, no gallops and no murmurs GI Palpation: soft, no hepatosplenomegaly, not firm and nontender Extrem General: normal to inspection and no edema Other: Right below-knee amputation with well-healed stump. Results Labs Result diagrams: 09/20/22 21:10 09/20/22 21:10 Labs: Laboratory Results - last 24 hr 09/20/22 09/20/22 09/20/22 21:10 21:10 23:30 WBC 9.29 RBC 5.45 Hgb 15.0 Hct 46.5 MCV 85 MCH 27.5 MCHC 32.3 RDW 14.6 H Plt Count 262 MPV 9.5 Immature Gran % 0.3 Neutrophils % 52.1 Lymphocytes % 39.9 Monocytes % 6.0 Eosinophils % 1.4 Basophils % 0.3 Nucleated RBC % 0.0 Absolute Neutrophils 4.83 Absolute Lymphocytes 3.71 H Absolute Monocytes 0.56 Absolute Eosinophils 0.13 Absolute Basophils 0.03 Sodium 144 Potassium 3.7 Chloride 106 Carbon Dioxide 29.4 Anion Gap 8.6 BUN 11 Creatinine 0.8 Est GFR (CKD-EPI 2020) 108.49 Glucose 98 Calcium 9.2 Magnesium 1.7 L Total Bilirubin 0.4 AST 15 ALT 27 Alkaline Phosphatase 154 H Troponin I < 50 Total Protein 7.6 Albumin 3.6 Lipase 614 H COVID-19 Source Nasal/Nares SARS-CoV-2 (PCR) Negative Last Vital Signs Temp 36 C L 09/21/22 03:35 Pulse 58 L 09/21/22 03:35 Resp 14 09/21/22 03:35 BP 109/65 09/21/22 03:35 Pulse Ox 95 09/21/22 03:35
[2022-09-21 07:24] VITALS: BP 106/66; PULSE 61; RESP 16; TEMP 35.9; O2SAT 95
[2022-09-21] MEDS: Sertraline 100 MG TAB 200 MG PO (08:05)
[2022-09-21] MEDS: Pantoprazole 40 MG TABCR PO (08:05)
[2022-09-21] MEDS: Ezetimibe 10 MG TAB PO (08:05)
[2022-09-21] MEDS: Tamsulosin 0.4 MG CAPCR PO (08:05)
[2022-09-21] MEDS: Atorvastatin 40 MG TAB PO (08:05)
[2022-09-21 08:07] LABS: Magnesium 1.7 mg/dL (1.8-2.4)
[2022-09-21] MEDS: Budesonide/Formoterol 80/4.5 6.9 GM 60 PUFF INH IH (09:00)
--- NOTE | 2022-09-21 09:02 | PDOC.CMIN ---
- If Service Date Differs Date of service: 09/21/22 Time of Service: 09:02 Care Management Initial Assess REASON FOR HOSPITALIZATION:: Pancreatitis with recurrent abdominal pain PAST MEDICAL HISTORY/PAST SURGICAL HISTORY:: All Active Problems (Updated 09/16/22 @ 00:08 by MICHOACANO GUILLEN). Recurrent abdominal pain (Acute). COVID-19 (Acute). Acute pancreatitis (Acute). Continuous tobacco abuse (Chronic). Chest pain at rest (Acute). RADIATION DOWN HIS ARMS. Tobacco use (Chronic). Below-knee amputation of right lower extremity (Acute). Acute cholecystitis (Acute). Skin ulcer (Acute). Pancreatic pseudocyst (Chronic). S/P BKA (below knee amputation) (Acute). Sensorineural hearing loss (SNHL) of both ears (Acute). Chest pain (Acute). Abnormal flushing and sweating (Acute). Neck pain on left side (Acute). Medical History . Acquired deformity of nail. s/p nail excision and matrix ablation 11/10/19. Ankle pain. right, chronic. Ankle pain, left. Anxiety. Arthritis. Arthritis. FOOT/ANKLE. Arthritis of right ankle. Arthritis of right subtalar joint. Asthma. 09/15/12. Burning sensation of feet. Callous ulcer. REFERRED TO DERM 12/22/13. Constipation due to opioid therapy. Curvature of spine. S/P FIXATION WITH RODS. Cyst of skin. TOP OF LEFT FOOT-PAINFUL. Deafness. Depression with anxiety. Fracture of distal phalanx of right index finger. Snowblowing injury. Ganglion cyst. Gastritis. GERD (gastroesophageal reflux disease). History of reduction of closed fracture. Hyperglycemia. Hyperlipidemia. Hypoglycemia. Insomnia. Leg pain, right. Lipoma. Loss of taste. Low back pain. Low back pain associated with a spinal disorder other than radiculopathy or spinal stenosis. Lung nodules. Migraine. Mood disorder. deteriorated. Neck pain. Neuropathy. Pain, foot, right, chronic. Partial Achilles tendon tear. left. 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. Snowblowing injury causing partial amputation. Surgical revision of amputation. DOS: 08/31/18. Partial traumatic transphalangeal amputation of right ring finger. Snowblowing injury causing partial amputation. Surgical revision of amputation. DOS: 08/31/18. Right ankle joint deformity. Right leg numbness. Scrotal lesion. Sebaceous cyst. Sensorineural hearing loss of both ears. Sinus headache. Sprain of unspecified ligament of left ankle, subsequent encounter (06/30/16). Testicular pain, right. 11/10/12-COMES AND GOES. tobacco abuse. Viral warts. Wart of hand. Surgical History . Excision, Skin Mass. 2009-LUQ LIPOMA. Fracture, Closed Treatment. ANKLE. History of back surgery. History of excision of mass. History of neck surgery. History of spinal surgery. History of surgical amputation of finger of right hand. pt. reports putting hand in neon glass blower. Hx of arthroscopic knee surgery. Hx of right B[place]. [place] [facility] [place] NECK SURGERY. 09/19-WITH METAL PLATE. Open Carpal Tunnel release. 204-RIGHT. Postsurgical arthrodesis status (08/22/20). rt ankle. Status post carpal tunnel release. Tibial fracture. S/P tibial nail fixation. PREVIOUS FUNCTIONAL STATUS/SOCIAL/FAMILY SUPPORTS:: Cole lives in [place] with his Kendra and an elderly gentleman. He has 2 children, one lives in [place] and the other is in [place], [place] He is close to his children and identifies them as a source of support. Cole also has 2 step children that he is not allowed to have contact with. He is disabled and does not drive, although his does and can transport him as needed. CURRENT FUNCTIONAL STATUS:: Cole was sitting up in bed when CM met with him. He informed CM that he is feeling good and will be discharged this afternoon. He plans to drive himself home as his car is at [facility]. He denied the need for any services. ADVANCE DIRECTIVES:: on file. Kendra [facility] Has patient been provided with info about the portal/API?: Yes Did the patient sign up for the portal?: Yes (previously) CODE STATUS:: Full Code INSURANCE COVERAGE / FINANCIAL ISSUES:: Medicare. Medicaid CURRENT HOME/COMMUNITY SERVICES/EQUIPMENT:: has a wheelchair and walker. no community services at this time PRIMARY CARE PHYSICIAN:: Brian Longo POTENTIAL DISCHARGE NEEDS:: Follow up with PCP and [place] [facility] [place] PATIENT/FAMILY EDUCATION NEEDS:: Review of discharge instructions, follow up plan, medications, activity, limitations and discuss Ask Me Three TRANSPORTATION:: via private vehicle with PLAN:: Anticipate Cole will return home once medically cleared. He will drive himself home as his car is at [facility] and will follow up with his PCP and discharge plan of care. CM will continue to follow and support Cole and his discharge planning needs.. Readmission - Within the Past 30 Days Yes or No: Y - Date of First Admission Date of 1st Admission: 09/07/22 - Date of this Admission Date of Admission: 09/20/22 This admission was: Through ED - ED visits How many ED visits in the past 12 months: 16 - Assessment for Readmission Summary of readmission circumstances, based upon interviews: Cole has chronic pancreatitis. He had a cholecystectomy in April for suspected gallstone pancreatitis but continues to have issues. He is being [place] and [place] [facility] [place] [facility]. He had a failed attempt at stent placement [place] [facility] [place]. He has an appointmeny with surgery [place] [facility] [place].
--- NOTE | 2022-09-21 13:55 | DSE_ITS ---
Date of service: 09/21/22 Time of Service: 13:55 DS: Diagnosis Discharge Diagnosis (1) Recurrent abdominal pain: Status: Acute (2) Acute pancreatitis: Status: Acute (3) Continuous tobacco abuse: Status: Chronic (4) Pancreatic pseudocyst: Status: Resolved Discharge Plan Disposition Patient Disposition: Home Condition: Improving Discharge Details Reason For Visit: Acute Pancreatitis Admit Date/Time: 09/20/22 22:32 Admit Provider: Ren Gibson Attending Provider: Ren Gibson Primary Care Provider: Brian Longo Hospital Course Hospital Course: This 47-year-old male presented to [facility] ED with complaint of abdominal pain.? This started the day prior to admission.? He has a history of recurrent pancreatitis for the last few months.? He stated that this difficulty started when it was thought that he had episode of gallstone pancreatitis in April of this year.? He had a cholecystectomy.? He has been managed both here as well as at [facility].? He had a recent attempt at [facility] to have a stent placed in his pancreas but it was not successful.? He has been referred to surgery for further evaluation.? That appointment is scheduled for September 24 at [facility].? He has a history of pseudocyst.? He has had many recurrent emergency room visits and has had a few admissions to the hospital for the recurrent pancreatitis.? He stated this pain developed in the epigastrium and radiated to both sides of his abdomen.? He had nausea and retching.? He did not have any fever.? He stated he does not drink alcohol but does smoke a pack cigarettes per day.? He is immunized for coronavirus.? Of note, he had a right below the knee amputation in December of this year at [facility] for recurrent problems with his ankle from remote trauma and neuropathy. He was admitted for pain control and IV fluids. his electrolytes were repleted. He advance to a clear liquid diet, then solid. He was discharged to home. His surgery is at [facility] [place] 09/24/2022. Discussed with Dr Mijares. ? Home Meds and New Rx's Prescriptions: Continued budesonide-formoterol [Symbicort] 80-4.5 mcg/actuation HFA aerosol inhaler 1 puff Inhalation BID Qty: 1 11RF albuterol sulfate [ProAir HFA] 90 mcg/actuation HFA aerosol inhaler 2 puff Inhalation Q6H PRN PRN (Reason: bronchospasm) Qty: 1 3RF atorvastatin 40 mg tablet 40 mg PO DAILY Qty: 90 3RF pantoprazole 40 mg tablet,delayed release (DR/EC) 40 mg PO BID Qty: 180 3RF fluticasone propionate 50 mcg/actuation spray,suspension 2 spray intranasal DAILY Qty: 9.9 5RF Rx Instructions: administer into each nostril ketorolac 10 mg tablet 10 mg PO TID PRN (Reason: pain) 10 Days Qty: 30 0RF (DME) nebulizer and compressor [Blueknow-FileString Neb System] 1 EACH device 1 ea Miscellaneous q 4 h prn Qty: 1 ipratropium-albuterol 0.5 mg-3 mg(2.5 mg base)/3 mL solution for nebulization 3 ml inhalation QID PRN (Reason: wheezing) Qty: 90 3RF ezetimibe [Zetia] 10 mg tablet 10 mg PO DAILY Qty: 90 3RF Trulance 3 mg tablet 3 mg PO DAILY Qty: 90 3RF Creon 12,000-38,000 -60,000 unit capsule,delayed release(DR/EC) 1 cap PO BID Qty: 60 2RF Rx Instructions: administer with meals and/or snacks acetaminophen 500 mg Tablet 1,000 mg PO PRN PRN ondansetron 4 mg tablet,disintegrating 4 mg PO Q6H PRNQty: 14 1RF tamsulosin 0.4 mg Capsule 0.4 mg PO DAILY Qty: 30 0RF No Action sertraline 100 mg tablet 200 mg PO DAILY Qty: 180 3RF Rx Instructions: dose increase 04/19/21 dose increase 09/17/21 Discharge Instructions Instructions: Pancreatitis (DC), DASH Eating Plan (DC) Additional Instructions: Continue home medications. Follow up with [facility] [place] [place] as planned. Take tylenol for pain Stand Alone Forms: Nursing Discharge Form Activity:: Activity as Tolerated Equipment/Supplies:: No Equipment Needed Diet:: DASH Discharge Orders Discharge Orders: Discharge Order (Routine); Ordered 09/21/22 Ordered By: Trinity Espinoza Discharge Data Discharge Date/Time-TO BE ENTERED AT DEPARTURE: 09/21/22 16:07 Discharge Comment: Discharge to home. DS: Summary Time Spent with Patient providing and/or coordinating discharge services: Less than 30 minutes Status at Discharge Functional status at discharge: uses cane/walker Overall status at discharge: patient is back to baseline Mental Status: mental status grossly normal Speech and Movement: speech and movement normal Mood: congruent mood Affect: normal affect Exam Psych Mental Status: mental status grossly normal Speech and Movement: speech and movement normal Mood: congruent mood Affect: normal affect DS: Data Vitals/I&O Vitals and I&O: Vital Signs Temperature 35.9 C L 09/21/22 07:24 Temperature Source Tympanic 09/21/22 07:24 Pulse 61 09/21/22 07:24 Pulse Rhythm Regular 09/21/22 09:47 Respiratory Rate 16 09/21/22 07:24 Respiratory Effort 09/21/22 09:47 Respiratory Depth Normal 09/21/22 09:47 Respiratory Pattern Normal 09/21/22 09:47 Blood Pressure 106/66 09/21/22 07:24 Blood Pressure Position Sitting 09/20/22 20:41 Pulse Oximetry 95 09/21/22 07:24 Oxygen Delivery Method Room Air 09/21/22 07:24 Oxygen Flow Rate 0 09/21/22 07:24 Pain Level 0 09/21/22 07:24 Intake & Output 09/20/22 09/21/22 09/21/22 23:59 11:59 23:59 Intake Total 2450 / 2450 Output Total 500 / 500 Balance 1949 / 1949 Weight 74.843 kg 74.8 kg Intake: IV 1959 / 1959 Oral 490 / 490 Output: Urine 500 / 500 Other: Urine Color Yellow Urine Appearance Clear Voiding Methods Urinal Data Completed and Pending Labs on day of discharge: Labs from last 24 hours 09/21/22 09/20/22 09/20/22 06:37 23:30 21:10 WBC 9.29 RBC 5.45 Hgb 15.0 Hct 46.5 MCV 85 MCH 27.5 MCHC 32.3 RDW 14.6 H Plt Count 262 MPV 9.5 Immature Gran % 0.3 Neutrophils % 52.1 Lymphocytes % 39.9 Monocytes % 6.0 Eosinophils % 1.4 Basophils % 0.3 Nucleated RBC % 0.0 Absolute Neutrophils 4.83 Absolute Lymphocytes 3.71 H Absolute Monocytes 0.56 Absolute Eosinophils 0.13 Absolute Basophils 0.03 Sodium Potassium Chloride Carbon Dioxide Anion Gap BUN Creatinine Est GFR (CKD-EPI 2020) Glucose Calcium Magnesium 1.7 L Total Bilirubin AST ALT Alkaline Phosphatase Troponin I Total Protein Albumin Lipase COVID-19 Source Nasal/Nares SARS-CoV-2 (PCR) Negative 09/20/22 21:10 WBC RBC Hgb Hct MCV MCH MCHC RDW Plt Count MPV Immature Gran % Neutrophils % Lymphocytes % Monocytes % Eosinophils % Basophils % Nucleated RBC % Absolute Neutrophils Absolute Lymphocytes Absolute Monocytes Absolute Eosinophils Absolute Basophils Sodium 144 Potassium 3.7 Chloride 106 Carbon Dioxide 29.4 Anion Gap 8.6 BUN 11 Creatinine 0.8 Est GFR (CKD-EPI 2020) 108.49 Glucose 98 Calcium 9.2 Magnesium 1.7 L Total Bilirubin 0.4 AST 15 ALT 27 Alkaline Phosphatase 154 H Troponin I < 50 Total Protein 7.6 Albumin 3.6 Lipase 614 H COVID-19 Source SARS-CoV-2 (PCR) PFSH All Active Problems (Updated 09/24/22 @ 15:55 by Roberta Gonzalez DO) Acute on chronic pancreatitis (Acute) Recurrent abdominal pain (Acute) COVID-19 (Acute) Acute pancreatitis (Acute) Continuous tobacco abuse (Chronic) Chest pain at rest (Acute) RADIATION DOWN HIS ARMS Tobacco use (Chronic) Below-knee amputation of right lower extremity (Acute) Acute cholecystitis (Acute) Skin ulcer (Acute) S/P BKA (below knee amputation) (Acute) Sensorineural hearing loss (SNHL) of both ears (Acute) Chest pain (Acute) Abnormal flushing and sweating (Acute) Neck pain on left side (Acute) Medical History Acquired deformity of nail s/p nail excision and matrix ablation 11/10/19 Ankle pain right, chronic Ankle pain, left Anxiety Arthritis Arthritis FOOT/ANKLE 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 Asthma 09/15/12 Burning sensation of feet Callous ulcer REFERRED TO DERM 12/22/13 Constipation due to opioid therapy Curvature of spine S/P FIXATION WITH RODS Cyst of skin TOP OF LEFT FOOT-PAINFUL Deafness Depression with anxiety Fracture of distal phalanx of right index finger Snowblowing injury Ganglion cyst Gastritis GERD (gastroesophageal reflux disease) History of reduction of closed fracture Hyperglycemia Hyperlipidemia Hypoglycemia Insomnia Leg pain, right Lipoma Loss of taste Low back pain Low back pain associated with a spinal disorder other than radiculopathy or spinal stenosis Lung nodules Migraine Mood disorder deteriorated Neck pain Neuropathy Pain, foot, right, chronic Partial Achilles tendon tear left 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 Snowblowing injury causing partial amputation Surgical revision of amputation DOS: 08/31/18 Partial traumatic transphalangeal amputation of right ring finger Snowblowing injury causing partial amputation Surgical revision of amputation DOS: 08/31/18 Right ankle joint deformity Right leg numbness Scrotal lesion Sebaceous cyst Sensorineural hearing loss of both ears Sinus headache Sprain of unspecified ligament of left ankle, subsequent encounter (06/30/16) Testicular pain, right 11/10/12-COMES AND GOES tobacco abuse Viral warts Wart of hand Surgical History Excision, Skin Mass 2008-LUQ LIPOMA Fracture, Closed Treatment ANKLE History of back surgery History of excision of mass History of neck surgery History of spinal surgery History of surgical 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 Family History Father Alcohol abuse Essential hypertension Heart disease Neoplasm Stroke Mother Essential hypertension COPD (chronic obstructive pulmonary disease) Depression Hyperlipidemia Neoplasm Stroke Asthma SIBLING ADHD (attention deficit hyperactivity disorder) Sister No problems noted. Brother Essential hypertension Grandfather Diabetes Alcohol abuse Grandfather Brain tumor Stroke Grandmother Diabetes Grandmother Heart disease Neoplasm Cervical cancer Stroke Family History Blood disorder Neoplasm Stomach,melanoma Social History Smoking/Tobacco Use Status: Current every day Tobacco Type: cigarettes Tobacco: How many years used: 30 Second Hand Exposure: Yes Counseling given: provider counseling Smoking risk assessment performed?: Yes Alcohol Intake: former Drug use: Never Substance use type: does not use Details: Stated 6 mos sobriety Household members: spouse Housing: apartment Number of Children: 4 Communication Needs: Hard of Hearing Do you need help understanding health information?: Rarely Pets and animals: Yes Pets and animals: cat(s) and dog(s) Sexually active: No Do you think of yourself as: straight/heterosexual Current gender identity: female What is your relationship status?: How often do you talk on the phone with friends or family?: three or more times per week Do you belong to any clubs or organized social groups?: no Panel score (0-1 are the most socially isolated patients): 2 What type of physical activity do you participate in: walking, aerobic and swimming Duration: < 15 minutes/day Mariajose/Scientologist: No preference Special mariajose needs: No Seatbelt use: always Helmet use: No Drive intox or ride w/intox tow motor driver: No Do you feel safe at home: Yes Do you feel safe in your relationship?: Yes
[2022-09-21 14:40] VITALS: BP 104/61; PULSE 53; RESP 18; TEMP 36.1; O2SAT 95
--- NOTE | 2022-09-21 16:17 | PDOC.CMDIS ---
- If Service Date Differs Date of service: 09/21/22 Time of Service: 16:18 LACE Index Scoring Tool - Questions: Length of Stay (in days): 1 Acuity (Admit via E.D.?): Yes E.D. Visits: 16 - Answers: Total Score: 8 Risk of Readmission: Low Risk Care Management Discharge Reason for Hospitalization: Pancreatitis with recurrent abdominal pain Discharge Plan: Cole will return home with no new services. He will drive himself home as his car is at [facility] and will follow up with his PCP and discharge plan of care. Patient/Family Education Needs: Review of discharge instructions, follow up plan, medications, activity, limitations and discuss Ask Me Three
== END 2022-09-21 16:07 | disposition home or self-care (01) ==
LOC: ER 22:39 → MS 09-21 00:37
PROVIDERS: Admitting Provider Family Medicine; Emergency Provider Physician Assistant; PCP Family Medicine; Visit Provider Family Medicine
DX: K85.90 Acute pancreatitis without necrosis or infection, unspecified (principal); K86.1 Other chronic pancreatitis; K86.3 Pseudocyst of pancreas; F17.210 Nicotine dependence, cigarettes, uncomplicated; Z20.822 Contact with and (suspected) exposure to COVID-19; Z89.511 Acquired absence of right leg below knee; H90.3 Sensorineural hearing loss, bilateral; M54.2 Cervicalgia; Z79.899 Other long term (current) drug therapy; Z86.16 Personal history of COVID-19; E78.5 Hyperlipidemia, unspecified; K21.9 Gastro-esophageal reflux disease without esophagitis; F41.8 Other specified anxiety disorders
CPT/HCPCS: 36415; 80053; 83690; 87635; 94640; 96361; 96365; 96366; 96375; 99285; 83735; 84484; 85025; 99219; G0378; J0131; J1885; J2270; J2405

== ENCOUNTER 2022-09-22 20:59 | Emergency (ER) | payer MEDICARE, MEDICAID, SELFPAY ==
[2022-09-22 21:03] VITALS: BP 134/72; PULSE 78; RESP 16; TEMP 36.6; O2SAT 98
--- NOTE | 2022-09-23 03:45 | NUR.NOTE ---
Left without being seen.Nursing Note:
== END 2022-09-22 22:33 | disposition left against medical advice (07) ==
LOC: ER 21:04
PROVIDERS: PCP Family Medicine
DX: Z53.21 Procedure and treatment not carried out due to patient leaving prior to being seen by health care provider (principal)

== ENCOUNTER 2022-09-26 21:45 | Emergency (ER) | payer MEDICARE, MEDICAID, SELFPAY ==
[2022-09-26 21:48] VITALS: BP 142/117; PULSE 96; RESP 20; TEMP 36.7; O2SAT 98
--- NOTE | 2022-09-26 21:53 | ED.GENADUL_ITS ---
Discharge Plan Discharge Details Chief Complaint: Abd Prob Primary Care Provider: Brian Longo ED Provider: Sarbjit Garces Home Meds and New Rx's Prescriptions: No Action budesonide-formoterol [Symbicort] 80-4.5 mcg/actuation HFA aerosol inhaler 1 puff Inhalation BID Qty: 1 11RF albuterol sulfate [ProAir HFA] 90 mcg/actuation HFA aerosol inhaler 2 puff Inhalation Q6H PRN PRN (Reason: bronchospasm) Qty: 1 3RF atorvastatin 40 mg tablet 40 mg PO DAILY Qty: 90 3RF pantoprazole 40 mg tablet,delayed release (DR/EC) 40 mg PO BID Qty: 180 3RF fluticasone propionate 50 mcg/actuation spray,suspension 2 spray intranasal DAILY Qty: 9.9 5RF Rx Instructions: administer into each nostril ketorolac 10 mg tablet 10 mg PO TID PRN (Reason: pain) 10 Days Qty: 30 0RF (DME) nebulizer and compressor [payever-Air [place] Neb System] 1 EACH device 1 ea Miscellaneous q 4 h prn Qty: 1 ipratropium-albuterol 0.5 mg-3 mg(2.5 mg base)/3 mL solution for nebulization 3 ml inhalation QID PRN (Reason: wheezing) Qty: 90 3RF ezetimibe [Zetia] 10 mg tablet 10 mg PO DAILY Qty: 90 3RF Trulance 3 mg tablet 3 mg PO DAILY Qty: 90 3RF Creon 12,000-38,000 -60,000 unit capsule,delayed release(DR/EC) 1 cap PO BID Qty: 60 2RF Rx Instructions: administer with meals and/or snacks sertraline 100 mg tablet 200 mg PO DAILY Qty: 180 3RF Rx Instructions: dose increase 04/19/21 dose increase 09/17/21 acetaminophen 500 mg Tablet 1,000 mg PO PRN PRN ondansetron 4 mg tablet,disintegrating 4 mg PO Q6H PRNQty: 14 1RF tamsulosin 0.4 mg Capsule 0.4 mg PO DAILY Qty: 30 0RF Medical Decision Making Patient presenting to ED with recurrent abdominal pain related to pancreatitis for which she is being seen by GI and surgery at [facility]. IV established and fluids started. Hydromorphone, ketorolac, ondansetron given for symptoms. Laboratory studies sent. Patient laboratory studies with normal white count and hemoglobin.. Chemistries look fine. Liver function good other than alk phos being slightly elevated to 149. Lipase is up tonight at 620 though it has been higher in the past. Nausea has resolved but pain persists. We will continue fluids and repeat dose of D ilaudid. He will be signed out to oncoming physician for further management and disposition. Medical Records Medical records reviewed: Yes I reviewed the patient's medical records. Lab Data Lab results reviewed: Yes I reviewed the patient's lab results. Sign Out Yes HPI General Mode of arrival: ambulatory . Date/Time Provider Initiated Documentation: 09/26/22 21:53 . Limitations to Documentation: no limitations . Information obtained by: patient . HPI Narrative: Patient presenting to ED with recurrent severe abdominal pain with associated vomiting. Patient has multiple previous visits for same. He has had an occasional admission. He is being followed with [facility] and was seen by 2 different surgeons. He was good this morning but began with pain and vomiting this afternoon which is progressed tonight. Pain is epigastric to the back and down to the umbilicus area. This is similar to previous visits. He has no fever, chest pain, shortness of breath. He appears uncomfortable. Related Data Home Medications Medication Instructions Recorded Confirmed nebulizer and compressor (Comp-Air #1 ea 07/16/16 09/22/22 Elite Comp Neb System device) atorvastatin 40 mg tablet 40 mg PO DAILY #90 tab-caps 09/17/21 09/26/22 pantoprazole 40 mg tablet,delayed 40 mg PO BID #180 tab-caps 09/17/21 09/26/22 release fluticasone propionate 50 2 spray intranasal DAILY #9.9 grams 11/13/21 09/26/22 mcg/actuation nasal spray,suspension acetaminophen 500 mg tablet 1,000 mg PO PRN PRN 11/23/21 09/26/22 ipratropium 0.5 mg-albuterol 3 mg 3 ml inhalation QID PRN wheezing 12/05/21 09/26/22 (2.5 mg base)/3 mL nebulization #90 mL soln ezetimibe 10 mg tablet (Zetia) 10 mg PO DAILY #90 tab-caps 12/23/21 09/26/22 albuterol sulfate 90 mcg/actuation 2 puff inhalation Q6H PRN PRN 01/24/22 09/26/22 aerosol inhaler (ProAir HFA) bronchospasm #1 inh budesonide-formoterol HFA 80 1 puff inhalation BID ##1 01/24/22 09/26/22 mcg-4.5 mcg/actuation aerosol inhaler (Symbicort) ondansetron 4 mg disintegrating 4 mg PO Q6H PRN #14 tabs 05/30/22 09/26/22 tablet plecanatide 3 mg tablet (Trulance) 3 mg PO DAILY constipation #90 tabs 05/31/22 09/22/22 [id number] 1 cap PO BID #60 caps 06/10/22 09/26/22 12,000-38,000-60,000 unit capsule,delayed rel (Creon) tamsulosin 0.4 mg capsule 0.4 mg PO DAILY #30 caps 09/05/22 09/22/22 ketorolac 10 mg tablet 10 mg PO TID PRN pain 10 days #30 22 09/26/22 tabs sertraline 100 mg tablet 200 mg PO DAILY #180 tabs 09/24/22 09/26/22 Previous Rx's Medication Instructions Recorded atorvastatin 40 mg tablet 40 mg PO DAILY #90 tab-caps 09/17/21 pantoprazole 40 mg tablet,delayed 40 mg PO BID #180 tab-caps 09/17/21 release fluticasone propionate 50 2 spray intranasal DAILY #9.9 grams 11/13/21 mcg/actuation nasal spray,suspension ipratropium 0.5 mg-albuterol 3 mg 3 ml inhalation QID PRN wheezing 12/05/21 (2.5 mg base)/3 mL nebulization #90 mL soln ezetimibe 10 mg tablet (Zetia) 10 mg PO DAILY #90 tab-caps 12/23/21 albuterol sulfate 90 mcg/actuation 2 puff inhalation Q6H PRN PRN 01/24/22 aerosol inhaler (ProAir HFA) bronchospasm #1 inh budesonide-formoterol HFA 80 1 puff inhalation BID ##1 01/24/22 mcg-4.5 mcg/actuation aerosol inhaler (Symbicort) ondansetron 4 mg disintegrating 4 mg PO Q6H PRN #14 tabs 05/30/22 tablet plecanatide 3 mg tablet (Trulance) 3 mg PO DAILY constipation #90 tabs 05/31/22 [id number] 1 cap PO BID #60 caps 06/10/22 12,000-38,000-60,000 unit capsule,delayed rel (Creon) tamsulosin 0.4 mg capsule 0.4 mg PO DAILY #30 caps 09/05/22 ketorolac 10 mg tablet 10 mg PO TID PRN pain 10 days #30 09/17/22 tabs sertraline 100 mg tablet 200 mg PO DAILY #180 tabs 09/24/22 Allergies Allergy/AdvReac Type Severity Reaction Status Date / Time Fish Containing Products Allergy Intermediate hives Verified 09/26/22 21:57 aspirin AdvReac Intermediate epistaxis Verified 09/26/22 21:57 seafood Allergy Intermediate Hives Uncoded 09/26/22 21:57 hydrocodone-homatropine AdvReac Intermediate GI UPSET Uncoded 09/26/22 21:57 General DONG: 3 Review of Systems Narrative: 08/01 Review of Systems completed and is negative except as stated above in HPI (Systems reviewed: Const, Eyes, ENT, Resp, CV, GI, , MSK, Skin, Neuro) PFSH All Active Problems Cyst of skin (Acute) TOP OF LEFT FOOT-PAINFUL Loss of taste (Acute) Neck pain (Acute) Sebaceous cyst (Acute) Scrotal lesion (Acute) Viral warts (Acute) Wart of hand (Acute) Burning sensation of feet (Acute) Ankle pain (Acute) right, chronic Acquired deformity of nail (Acute) s/p nail excision and matrix ablation 11/10/19 Recurrent abdominal pain (Acute) COVID-19 (Acute) Acute pancreatitis (Acute) Continuous tobacco abuse (Chronic) Chest pain at rest (Acute) RADIATION DOWN HIS ARMS Tobacco use (Chronic) Below-knee amputation of right lower extremity (Acute) Acute cholecystitis (Acute) Skin ulcer (Acute) S/P BKA (below knee amputation) (Acute) Sensorineural hearing loss (SNHL) of both ears (Acute) Chest pain (Acute) Abnormal flushing and sweating (Acute) Neck pain on left side (Acute) Medical History Acute on chronic pancreatitis Anxiety Arthritis FOOT/ANKLE Asthma 09/15/12 Callous ulcer REFERRED TO DERM 12/22/13 Constipation due to opioid therapy Depression with anxiety Ganglion cyst Gastritis GERD (gastroesophageal reflux disease) Hyperglycemia Hyperlipidemia Hypoglycemia Insomnia Lipoma Low back pain associated with a spinal disorder other than radiculopathy or spinal stenosis Lung nodules Migraine Mood disorder deteriorated Neuropathy Partial Achilles tendon tear left 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 Snowblowing injury causing partial amputation Surgical revision of amputation DOS: 08/31/18 Partial traumatic transphalangeal amputation of right ring finger Snowblowing injury causing partial amputation Surgical revision of amputation DOS: 08/31/18 Sensorineural hearing loss of both ears tobacco abuse Surgical History History of excision of mass History of neck surgery History of spinal surgery History of surgical 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 Family History Father Alcohol abuse Essential hypertension Heart disease Neoplasm Stroke Mother Essential hypertension COPD (chronic obstructive pulmonary disease) Depression Hyperlipidemia Neoplasm Stroke Asthma SIBLING ADHD (attention deficit hyperactivity disorder) Sister No problems noted. Brother Essential hypertension Grandfather Diabetes Alcohol abuse Grandfather Brain tumor Stroke Grandmother Diabetes Grandmother Heart disease Neoplasm Cervical cancer Stroke Family History Blood disorder Neoplasm Stomach,melanoma Social History Smoking/Tobacco Use Status: Current every day Tobacco Type: cigarettes Tobacco: How many years used: 30 Second Hand Exposure: Yes Counseling given: provider counseling Smoking risk assessment performed?: Yes Alcohol Intake: former Drug use: Never Substance use type: does not use Details: Stated 6 mos sobriety Household members: spouse Housing: apartment Number of Children: 4 Communication Needs: Hard of Hearing Do you need help understanding health information?: Rarely Pets and animals: Yes Pets and animals: cat(s) and dog(s) Sexually active: No Do you think of yourself as: straight/heterosexual Current gender identity: female What is your relationship status?: How often do you talk on the phone with friends or family?: three or more times per week Do you belong to any clubs or organized social groups?: no Panel score (0-1 are the most socially isolated patients): 2 What type of physical activity do you participate in: walking, aerobic and swimming Duration: < 15 minutes/day Mariajose/Pentecostal: No preference Special mariajose needs: No Seatbelt use: always Helmet use: No Drive intox or ride w/intox box truck driver: No Do you feel safe at home: Yes Do you feel safe in your relationship?: Yes Exam Narrative Exam Narrative: Const: WDWN male in NAD. HEENT: NC/AT. Normal facial exam. Eyes: Normal conjunctiva and sclera. Neck: Supple. Trachea midline. Lungs: Normal respiratory effort. Lungs are clear. Cor: RRR without murmur/gallop. Good radial pulses. GI: Soft and ND. Tender epigastric area without guarding/rebound Neuro: A+O x 3. Normal speech, mentation, gait. Cranial nerves II - XII radhames ssly intact. No gross motor or sensory deficit. Ext: No C/C/E. Skin: Warm and dry without rash.
[2022-09-26 22:16] LABS: Abs Immature Grans 0.03 10^3/uL (0.0-0.06); Absolute Basophil Count 0.03 10^3/uL (0.0-0.2); Absolute Eosinophil Count 0.11 10^3/uL (0.0-0.7); Absolute Lymphocyte Count 4.25 10^3/uL (1.2-3.4); Absolute Monocyte Count 0.69 10^3/uL (0.1-0.8); Absolute Neutrophil Count 4.02 10^3/uL (1.2-6.7); Basophils % 0.3; Eosinophils % 1.2; Immature Grans % 0.3; Lymphocytes % 46.5; MCH 27.4 pg (27.0-33.0); MCHC 32.7 % (32.0-36.0); MCV 84 fL (80-95); MPV 9.7 fL (8.0-11.0); Monocytes % 7.6; Neutrophils % 44.1; Platelet Count 261 10^3/uL (130-400); RBC 5.85 10^6/uL (4.36-5.78); RDW 14.3 % (11.8-14.1); RDW-SD 43.7 fL; WBC 9.13 10^3/uL (4.4-10.8)
[2022-09-26] MEDS: Lactated Ringers 1,000 ML 1000 ML IV ×2 (22:27→23:40)
[2022-09-26] MEDS: HYDROmorphone 2 MG/ML SYR 1 MG IVP ×2 (22:28→23:41)
[2022-09-26] MEDS: Ketorolac 15 MG/ML VIAL IVP (22:30)
[2022-09-26] MEDS: Ondansetron 4 MG/2 ML VIAL IVP (22:30)
[2022-09-26 22:43] LABS: ALT 29 U/L (16-63); AST 22 U/L (15-37); Alkaline Phosphatase 149 U/L (46-116); Anion Gap 9.1 mmol/L (3-11); BUN 16 mg/dL (7-18); Bilirubin, Total 0.7 mg/dL (0.2-1.0); CO2 29.9 mmol/L (21.0-32.0); CREATININE 0.9 mg/dL (0.70-1.30); Calcium 9.4 mg/dL (8.5-10.1); Chloride 101 mmol/L (98-107); Glucose 139 mg/dL (74-106); Lipase 620 U/L (73-393); Potassium 3.5 mmol/L (3.5-5.1); Sodium 140 mmol/L (136-145)
--- NOTE | 2022-09-27 00:47 | ED.PROG_ITS ---
Sign Out Sign Out Data: Sign Out Comment: Pending reevaluation after repeat pain medication and fluids. Last updated by Sarbjit Garces MD at 09/26/22 23:30 Discharge Plan Disposition Patient Disposition: Home Condition: Good Discharge Details Chief Complaint: Abd Prob Clinical Impression: Vomiting Primary Care Provider: Brian Longo ED Provider: Kun Gerard Home Meds and New Rx's Prescriptions: No Action budesonide-formoterol [Symbicort] 80-4.5 mcg/actuation HFA aerosol inhaler 1 puff Inhalation BID Qty: 1 11RF albuterol sulfate [ProAir HFA] 90 mcg/actuation HFA aerosol inhaler 2 puff Inhalation Q6H PRN PRN (Reason: bronchospasm) Qty: 1 3RF atorvastatin 40 mg tablet 40 mg PO DAILY Qty: 90 3RF pantoprazole 40 mg tablet,delayed release (DR/EC) 40 mg PO BID Qty: 180 3RF fluticasone propionate 50 mcg/actuation spray,suspension 2 spray intranasal DAILY Qty: 9.9 5RF Rx Instructions: administer into each nostril ketorolac 10 mg tablet 10 mg PO TID PRN (Reason: pain) 10 Days Qty: 30 0RF (DME) nebulizer and compressor [Zanbato-Air Elite Zanbato Neb System] 1 EACH device 1 ea Miscellaneous q 4 h prn Qty: 1 ipratropium-albuterol 0.5 mg-3 mg(2.5 mg base)/3 mL solution for nebulization 3 ml inhalation QID PRN (Reason: wheezing) Qty: 90 3RF ezetimibe [Zetia] 10 mg tablet 10 mg PO DAILY Qty: 90 3RF Trulance 3 mg tablet 3 mg PO DAILY Qty: 90 3RF Creon 12,000-38,000 -60,000 unit capsule,delayed release(DR/EC) 1 cap PO BID Qty: 60 2RF Rx Instructions: administer with meals and/or snacks sertraline 100 mg tablet 200 mg PO DAILY Qty: 180 3RF Rx Instructions: dose increase 04/19/21 dose increase 09/17/21 acetaminophen 500 mg Tablet 1,000 mg PO PRN PRN ondansetron 4 mg tablet,disintegrating 4 mg PO Q6H PRNQty: 14 1RF tamsulosin 0.4 mg Capsule 0.4 mg PO DAILY Qty: 30 0RF Discharge Instructions Instructions: Acute Nausea and Vomiting (ED) Additional Instructions: Please follow-up closely with your [facility] surgeons. Take the Reglan and Zofran as needed for vomiting. Please subscribe to your designated diet. if you notice any worsening of your symptoms, or any new symptoms such as vomiting, diarrhea, fever, chills, shortness of breath, chest pain, numbness, weakness, or fainting , please return immediately to the emergency department for reevaluation. Please follow up with your primary care provider as soon as possible for reassessment and reevaluation. As always, it was a pleasure participating in your medical care today. Referrals: Brian Longo MD [Primary Care Provider] -
[2022-09-27] MEDS: Metoclopramide 10 MG TAB 20 MG PO (00:54)
[2022-09-27 00:57] VITALS: BP 112/68; PULSE 92; RESP 20; O2SAT 98
== END 2022-09-27 01:13 | disposition home or self-care (01) ==
PROVIDERS: Emergency Medicine; Emergency Provider Student in an Organized Health Care Education/Training Program; PCP Family Medicine
DX: K85.90 Acute pancreatitis without necrosis or infection, unspecified (principal); R74.8 Abnormal levels of other serum enzymes
CPT/HCPCS: 80053; 83690; 96361; 96374; 96375; 96376; 99284; 85025; J1170; J1885; J2405

== ENCOUNTER 2022-12-24 12:47 | Outpatient (CLI) | payer MEDICARE, MEDICAID, SELFPAY ==
--- NOTE | 2022-12-24 13:50 | DI.MRI_ITS ---
Exam(s) MR UPPER JOINT LT WO EXAM: MR UPPER JOINT LT WO CLINICAL HISTORY: WORSENING SHOULDER PAIN WITH RANGE OF MOTION, M25.512. TECHNIQUE: Multiplanar multisequence MRI was performed. COMPARISON: Most recent plain films are from 2017. FINDINGS: BONES: There is no fracture. Few small subchondral cysts in the humeral head. JOINTS:The acromioclavicular joint shows mild spurring. There is some edema in the distal clavicle a nd adjacent aspect of the acromion. The glenohumeral joint shows no fluid. TENDONS: Supraspinatus: Minimal thickening and intermediate signal consistent with tendinosis. Infraspinatus: Unremarkable. Subscapularis: Unremarkable. Teres Minor: Unremarkable. Biceps and [place]: Unremarkable. MUSCLES: Unremarkable. GLENOID LABRUM: Unremarkable on this noncontrast examination. SOFT TISSUES: Unremarkable. OTHER: Subacromial and subdeltoid bursae show no fluid . IMPRESSION: Mild AC joint degenerative changes. High signal in the distal clavicle and acromion could be seconda ry to trauma or inflammation. Mild supraspinatus tendinosis. DATA REPOSITORY:
== END 2022-12-24 13:07 ==
LOC: DI 12:48
PROVIDERS: PCP Family Medicine; Visit Provider Physician Assistant Surgical
DX: M19.012 Primary osteoarthritis, left shoulder (principal); M67.814 Other specified disorders of tendon, left shoulder
CPT/HCPCS: 36415; 84402; 84403; 73221

== ENCOUNTER 2022-12-24 15:04 | Outpatient (CLI) | payer MEDICARE, MEDICAID, SELFPAY ==
[2022-12-30 12:58] LABS: Testosterone, Total 395 ng/dL (240-950)
== END 2022-12-24 15:05 | disposition home or self-care (01) ==
LOC: LBO 15:06
PROVIDERS: PCP Family Medicine; Visit Provider Family Medicine
DX: F41.8 Other specified anxiety disorders (principal); N52.8 Other male erectile dysfunction
CPT/HCPCS: 36415; 84402; 84403

== ENCOUNTER 2023-01-15 12:33 | Outpatient (CLI) | payer MEDICARE, MEDICAID, SELFPAY ==
--- NOTE | 2023-01-15 12:30 | RT.EKG_ITS ---
APPROVED REPORT Exam: Resting ECG Reason for Exam: pre op clearance Patient Location: O HR:69 bpm ECG Measurements Heart Rate [address] 147 P 40 QRSd 91 QRS -15 QT 399 T 35 QTc 428 Conclusion Sinus rhythm...normal P axis, V-rate 50- 99 Normal Electrocardiogram
== END 2023-01-15 12:34 | disposition home or self-care (01) ==
LOC: DI.CM 12:33
PROVIDERS: PCP Family Medicine; Visit Provider Family Medicine
DX: Z01.818 Encounter for other preprocedural examination (principal)
CPT/HCPCS: 93010

== ENCOUNTER → 2023-01-23 10:15 | Outpatient (BNVA) | payer MEDICARE, MEDICAID, SELFPAY | PROVIDERS: PCP Family Medicine; Referring Provider Family Medicine; Visit Provider Student in an Organized Health Care Education/Training Program | DX: L60.8 Other nail disorders (principal) | CPT/HCPCS: 99213 ==

== ENCOUNTER 2023-02-25 13:18 | Day surgery (SDC) | payer MEDICARE, MEDICAID, SELFPAY ==
[2023-02-25 13:20] VITALS: BP 128/55; PULSE 63; RESP 20; TEMP 36.8; O2SAT 97
--- NOTE | 2023-02-25 14:09 | PDOC.DSDIS_ITS ---
Date of service: 02/25/23 Time of Service: 14:10 Discharge Plan Disposition Patient Disposition: Home Condition: Good Discharge Details Reason For Visit: RRF Nail Deformity Attending Provider: Arcenio Schofield Primary Care Provider: Brian Longo Home Meds and New Rx's Prescriptions: Continued sildenafil (pulm.hypertension) 20 mg tablet 20 - 100 mg PO DAILY PRN (Reason: sexual activity) Qty: 30 5RF budesonide-formoterol [Symbicort] 80-4.5 mcg/actuation HFA aerosol inhaler 1 puff Inhalation BID Qty: 1 11RF albuterol sulfate [ProAir HFA] 90 mcg/actuation HFA aerosol inhaler 2 puff Inhalation Q6H PRN PRN (Reason: bronchospasm) Qty: 1 3RF ezetimibe [Zetia] 10 mg tablet 10 mg PO DAILY Qty: 90 3RF Creon 12,000-38,000 -60,000 unit capsule,delayed release(DR/EC) 1 cap PO BID Qty: 180 3RF Rx Instructions: administer with meals and/or snacks fluticasone propionate 50 mcg/actuation spray,suspension 2 spray intranasal DAILY Qty: 9.9 5RF Rx Instructions: administer into each nostril (DME) nebulizer and compressor [Comp-Air Elite [employer] Neb System] 1 EACH device 1 ea Miscellaneous q 4 h prn Qty: 1 ipratropium-albuterol 0.5 mg-3 mg(2.5 mg base)/3 mL solution for nebulization 3 ml inhalation QID PRN (Reason: wheezing) Qty: 90 3RF Trulance 3 mg tablet 3 mg PO DAILY Qty: 90 3RF sertraline 100 mg tablet 200 mg PO DAILY Qty: 180 3RF Rx Instructions: dose increase 04/19/21 dose increase 09/17/21 atorvastatin 40 mg tablet 40 mg PO DAILY Qty: 90 3RF pantoprazole 40 mg tablet,delayed release (DR/EC) 40 mg PO BID Qty: 180 3RF Linzess 72 mcg Capsule 72 mcg PO QAM ondansetron 4 mg tablet,disintegrating 4 mg PO Q6H PRNQty: 14 1RF tamsulosin 0.4 mg Capsule 0.4 mg PO DAILY Qty: 30 0RF Discontinued acetaminophen 500 mg Tablet 1,000 mg PO PRN PRN Discharge Instructions Additional Instructions: Nail Removal Discharge Instructions Activity: You may use your fingers for light activity. You should limit any excessive motion or forceful gripping until the sutures have been removed. Dressings: You should keep the initial surgical dressing in place for at least 3 days. You may remove your dressings and get the wound wet after 3 days. You should keep the dressings and the wound clean at all times. You may cover it with a band-aid Medications: - You should take Tylenol (up to 3000mg per day) and Ibuprofen (up to 2400mg per day) around the clock as prescribed or per founder and chief executive officer's recommendations. - You may also apply ice. Follow-up: 7-10 days for wound check and suture removal. Referrals: Arcenio Schofield MD [ [facility] STAFF PHYSICIAN] - Activity:: Elevate Remove Dressings/Wound Care:: 48 hours Shower/Bathe:: 48 hours Diet:: As Tolerated Discharge Orders Discharge Orders: Discharge Order (Routine); Ordered 02/25/23 Ordered By: Arcenio Schofield DS: Diagnosis Discharge Diagnosis (1) Nail deformity: Status: Acute
[2023-02-25] MEDS: Sodium Bicarbonate 50 MEQ/50 ML VIAL (14:28)
[2023-02-25] MEDS: Lidocaine 1% Multi-Dose W/EPI 1/100,000 50 ML VIAL (14:28)
[2023-02-25 14:34] VITALS: BP 116/55; PULSE 69; RESP 20; TEMP 36.7; O2SAT 95
--- NOTE | 2023-02-25 17:39 | W.PM.OP ---
Date of service: 02/25/23 Time of Service: 14:30 Operative Note Operative Note DATE OF PROCEDURE: 02/25/23 PRE-OP DIAGNOSIS: Dystrophic Nail - Right Ring Finger POST-OP DIAGNOSIS: same PROCEDURE: Dystrophic nail excision - right ring finger SURGEON: Arcenio Schofield ANESTHESIA TYPE: Local By Surgeon Refer to Anesthesia Record ESTIMATED BLOOD LOSS: 0 PATHOLOGY: none sent COMPLICATIONS: None Patient was transported to: same day Patient's condition: stable Indications: Cole is a 47-year-old who I know well. He suffered a partial potation's of the ring finger and middle finger. He has had issues with a dystrophic nail growing from the radial aspect of the distal right ring finger. It has persisted and become problematic with getting caught on clothing and other objects. Therefore, he desires it to be removed. I discussed this with him in the office. I once again reviewed it today. I reviewed the risk to include recurrence of the growth, pain, stiffness, bleeding. Despite these risk, he elects to proceed. Findings: The nail and its attached germinal matrix was excised sharply. Procedure Description: Cole was greeted in the preoperative holding area where the correct side was identified and marked. The consent was reviewed with the patient and signed. All questions were answered. He was taken back to the operating room. The patient was placed into the supine position on the operating room table with the right arm on an arm board. All bony prominences were well padded. No prophylactic antibiotics were administered since this was a clean, elective hand surgical case. The right arm was then prepped with Chloraprep and draped in a standard fashion with stockinette and extremity drape. A timeout to confirm correct identity, side and site, procedure, allergies, anesthesia, and medical concerns was performed. A digital block was performed with 1% lidocaine at the level of the palmar A1 chantelle. The surgical site was marked as an ellipse around the nail growth. The patient tolerated this well and once the anesthetic had setup, the procedure began. The nail growth was excised sharply full-thickness through the skin and down into the bone. This was followed back proximally including any germinal matrix type tissue. Once was excised fully it was discarded and the deeper tissues were removed with a rongeur. A knife was also used to scrape and debride the deeper surfaces. The wound was then irrigated and the skin was closed with a 4-0 Nylon. This was dressed with gauze and a Conform dressing. The patient tolerated the procedure well and was returned to the Same Day Surgery area in a stable condition suffering no known complication.
== END 2023-02-25 14:59 | disposition home or self-care (01) ==
PROVIDERS: PCP Family Medicine; Visit Provider Student in an Organized Health Care Education/Training Program
PROC: (CPT 11750; principal; 2023-02-25 13:45)
DX: L60.3 Nail dystrophy (principal)
CPT/HCPCS: 11750

== ENCOUNTER → 2023-03-06 09:11 | Outpatient (BNVA) | payer MEDICARE, MEDICAID, SELFPAY | PROVIDERS: PCP Family Medicine; Referring Provider Family Medicine; Visit Provider Physician Assistant | DX: L60.8 Other nail disorders (principal); Z47.89 Encounter for other orthopedic aftercare ==

== ENCOUNTER 2023-03-13 13:31 | Emergency (ER) | payer MEDICARE, MEDICAID, SELFPAY ==
[2023-03-13 13:36] VITALS: BP 97/61; PULSE 106; RESP 18; TEMP 37.8; O2SAT 95
--- NOTE | 2023-03-13 14:00 | DI.CT_ITS ---
Exam(s) CT ABDOMEN PELVIS W EXAM: CT ABDOMEN PELVIS W CLINICAL HISTORY: lower abdominal pain, fever, testicular pain, back. TECHNIQUE: Imaging Protocol: Axial computed tomography images with coronal and sagittal reformatted images were created and reviewed CONTRAST MATERIAL: Intravenous: Omnipaque-350 100cc Oral: None COMPARISON: CT CT ABDOMEN PELVIS W from 09/14/2022 FINDINGS: VISUALIZED LUNG BASES: No nodules nor pleural effusions evident. ABDOMEN: There is no ascites. LIVER: There are no focal hepatic lesions evident. No dilated intrahepatic ducts. GALLBLADDER/BILIARY: Gallbladder surgically absent. CBD is not dilated. PANCREAS: No evidence of pancreatic mass nor dilatation of the pancreatic duct. The previously prese nt large 4.5 cm cyst in the pancreatic head is no longer seen SPLEEN: Spleen is not enlarged. No obvious intrasplenic lesions. Splenic and portal veins are paten t. ADRENALS: There are no significant adrenal masses. KIDNEYS:Unremarkable. No cysts. No solid renal masses. No calculi nor hydronephrosis.. ABDOMINAL AORTA: Abdominal aorta is not enlarged. LYMPH NODES:There is no retroperitoneal nor paraaortic adenopathy. ABDOMINAL WALL: No evidence of significant anterior abdominal wall nor inguinal hernia. GI: There is no evidence of bowel obstruction, free air, nor abscess. PELVIS: GI: No evidence of appendicitis.No evidence of sigmoid diverticulitis.Mild dilatation transverse colo n. No obvious colitis pattern LYMPH NODES: There is no intrapelvic nor inguinal adenopathy. REPRODUCTIVE: Prostate not enlarged. Seminal vesicles unremarkable. URINARY BLADDER: Unremarkable. No masses. No radiopaque calculi. OSSEOUS: Fusion hardware in the lower lumbar spine evident with multilevel level removal of posterior osseous elements. No fractures. IMPRESSION: 1. Compared to the CT scan of September 14, 2022, the previously present large 4.5 cm cyst in the head of the pancreas is no longer seen. Pancreas on today's study appears unremarkable. Pancreatic duct is not dilated. 2. The gallbladder is again noted be surgically absent. The biliary tree is not dilated. 3. No evidence of appendicitis nor diverticulitis 4. There is no ascites. RADIATION DOSE DELIVERED: 955.27mGy.cm Total DLP DATA REPOSITORY: All CT scans at this facility are submitted to the National Radiology Data Registry (NRDR) Dose Index Registry (DIR) with the [employer] (A[employer]). RADIATION OPTIMIZATION: All CT scans at this facility use at least one of these dose optimization te chniques: automated exposure control; mA and/or kV adjustment per patient size (includes targeted exa ms where dose is matched to clinical indication); or iterative reconstruction.
--- NOTE | 2023-03-13 14:00 | DI.US_ITS ---
Exam(s) US SCROTUM EXAM: US SCROTUM CLINICAL HISTORY: pain and fever TECHNIQUE: Ultrasound of the testes performed using grayscale, color, and Doppler imaging. COMPARISON: No exams were available for comparison FINDINGS: RIGHT HEMISCROTUM: Small hydrocele noted The right testicle exhibits normal size and echo architecture with no evidence of intratesticular mas s. Vascular flow was demonstrated within the right testicle, including arterial waveforms. The epididymis appears unremarkable. There are no epididymal head cysts. There is no ipsilateral varicocele. LEFT HEMISCROTUM: Small left hydrocele also noted. The left testicle exhibits normal size and echo architecture with no evidence of intratesticular mass . Vascular flow is demonstrated within the left testicle, including arterial waveforms. The epididymis appears unremarkable. There are no epididymal head cysts. There is no ipsilateral varicocele. IMPRESSION: 1. No evidence of testicular mass nor testicular torsion. 2. Small bilateral hydroceles. 3. No varicoceles evident DATA REPOSITORY:
--- NOTE | 2023-03-13 14:07 | DI.RAD_ITS ---
Exam(s) XR PORTABLE CHEST AP EXAM: XR PORTABLE CHEST AP CLINICAL HISTORY: pain. TECHNIQUE: 2D digital imaging was performed. COMPARISON: CR,XR XR PORTABLE CHEST AP from 03/27/2021 FINDINGS: Single AP portable view. Heart size is upper normal. The mediastinum is not widened. Slightly increased markings throughout both lung gonzalez but no confluent infiltrates nor pleural effu sions. No pneumothorax. Fusion plate in the lower cervical spine noted. IMPRESSION: No acute pulmonary findings on this single AP portable view of the chest. DATA REPOSITORY: RADIATION DOSE DELIVERED:
[2023-03-13] MEDS: Acetaminophen 500 MG TAB 1000 MG PO (14:18)
[2023-03-13] MEDS: Normal Saline 1,000 ML 1000 ML IV (14:19)
[2023-03-13 14:31] LABS: Lactate 0.9 mmol/L (0.6-1.4)
[2023-03-13 14:32] LABS: Abs Immature Grans 0.03 10^3/uL (0.0-0.06); Absolute Basophil Count 0.01 10^3/uL (0.0-0.2); Absolute Eosinophil Count 0.04 10^3/uL (0.0-0.7); Absolute Lymphocyte Count 0.53 10^3/uL (1.2-3.4); Absolute Monocyte Count 0.52 10^3/uL (0.1-0.8); Absolute Neutrophil Count 5.94 10^3/uL (1.2-6.7); Basophils % 0.1; Eosinophils % 0.6; HGB 14.6 g/dL (13.5-17.5); Immature Grans % 0.4; Lymphocytes % 7.5; MCH 27.3 pg (27.0-33.0); MCHC 33.2 % (32.0-36.0); MCV 82 fL (80-95); MPV 9.6 fL (8.0-11.0); Monocytes % 7.4; Platelet Count 165 10^3/uL (130-400); RBC 5.34 10^6/uL (4.36-5.78); RDW-SD 45.1 fL; WBC 7.07 10^3/uL (4.4-10.8)
[2023-03-13 14:38] LABS: Bilirubin Small (Negative); Blood Negative (Negative); Clarity Clear (Clear); Glucose Negative (Negative); Ketones Trace mg/dL (Negative); Leukocyte Esterase Negative (Negative); Nitrite Negative (Negative)
[2023-03-13 14:48] LABS: ALT 45 U/L (16-63); AST 29 U/L (15-37); Albumin 3.6 g/dL (3.4-5.0); Alkaline Phosphatase 113 U/L (46-116); Anion Gap 5.2 mmol/L (3-11); BUN 9 mg/dL (7-18); Bilirubin, Total 1.4 mg/dL (0.2-1.0); CO2 28.8 mmol/L (21.0-32.0); Calcium 8.5 mg/dL (8.5-10.1); Chloride 102 mmol/L (98-107); Estimated GFR 92.26 (mL/min/1.73m2); Glucose 94 mg/dL (74-106); Potassium 3.8 mmol/L (3.5-5.1); Sodium 136 mmol/L (136-145)
--- NOTE | 2023-03-13 15:10 | ED.GENADUL_ITS ---
Discharge Plan Disposition Patient Disposition: Home Condition: Stable Discharge Details Clinical Impression: Pain in scrotum, Fever Primary Care Provider: Brian Longo ED Provider: Rose Calix Home Meds and New Rx's Prescriptions: New levofloxacin 750 mg tablet 750 mg PO DAILY 10 Days Qty: 10 0RF oxycodone 5 mg capsule 5 mg PO BID PRNQty: 5 0RF Continued sildenafil (pulm.hypertension) 20 mg tablet 20 - 100 mg PO DAILY PRN (Reason: sexual activity) Qty: 30 5RF budesonide-formoterol [Symbicort] 80-4.5 mcg/actuation HFA aerosol inhaler 1 puff Inhalation BID Qty: 1 11RF albuterol sulfate [ProAir HFA] 90 mcg/actuation HFA aerosol inhaler 2 puff Inhalation Q6H PRN PRN (Reason: bronchospasm) Qty: 1 3RF ezetimibe [Zetia] 10 mg tablet 10 mg PO DAILY Qty: 90 3RF Creon 12,000-38,000 -60,000 unit capsule,delayed release(DR/EC) 1 cap PO BID Qty: 180 3RF Rx Instructions: administer with meals and/or snacks fluticasone propionate 50 mcg/actuation spray,suspension 2 spray intranasal DAILY Qty: 9.9 5RF Rx Instructions: administer into each nostril (DME) nebulizer and compressor [Comp-Air Elite Comp Neb System] 1 EACH device 1 ea Miscellaneous q 4 h prn Qty: 1 ipratropium-albuterol 0.5 mg-3 mg(2.5 mg base)/3 mL solution for nebulization 3 ml inhalation QID PRN (Reason: wheezing) Qty: 90 3RF Trulance 3 mg tablet 3 mg PO DAILY Qty: 90 3RF sertraline 100 mg tablet 200 mg PO DAILY Qty: 180 3RF Rx Instructions: dose increase 04/19/21 dose increase 09/17/21 atorvastatin 40 mg tablet 40 mg PO DAILY Qty: 90 3RF pantoprazole 40 mg tablet,delayed release (DR/EC) 40 mg PO BID Qty: 180 3RF Linzess 72 mcg Capsule 72 mcg PO QAM ondansetron 4 mg tablet,disintegrating 4 mg PO Q6H PRNQty: 14 1RF tamsulosin 0.4 mg Capsule 0.4 mg PO DAILY Qty: 30 0RF Discharge Instructions Instructions: Fever in Adults (ED) Additional Instructions: Take antibiotics as prescribed Yogurt daily while on antibiotics Manage fever with ibuprofen and Tylenol, please return should you develop rashes, lesions, uncontrolled vomiting, stiff neck, headache, or any new or worsening complaints Referrals: Brian Longo MD [Primary Care Provider] - Discharge Data Discharge Date/Time-TO BE ENTERED AT DEPARTURE: 03/13/23 17:43 Medical Decision Making 47-year-old gentleman presents with scrotal pain, fever, myalgias, and abdominal pain Patient received Tylenol, IV fluid hydration, telemetry monitoring, and antibiotics Secondary to clinical exam and patient complaints, scrotal ultrasound, CT abdomen and pelvis, diagnostic labs, urinalysis were ordered Did not show evidence of acute abnormality, specifically no evidence of acute prostatitis or pyelonephritis We will start patient on Levaquin empirically with scrotal pain and abdominal pain for bacterial source with Levaquin We discussed admission for observation, patient has declined at this time, he is fully alert oriented, of decisional capacity, he has blood cultures pending He has a reassuring lactate and no leukocytosis, he is fully alert and oriented All conversations had in the presence of patient's We will order tick panel and send urine for culture Recheck in 48 hours recommended Strict return precautions reviewed HPI General Date/Time Provider Initiated Documentation: 03/13/23 13:51 . HPI Narrative: This 47-year-old gentleman presents with report of testicular pain, myalgias, and temp of 102 this morning. Denies history of illicit drug use. Denies any chest pain, shortness of breath, dizziness, weakness. Denies any nausea or vomiting. Denies dysuria or frequency. Sexually active and monogamous with his of many years. Denies any known tick bites. Related Data Home Medications Medication Instructions Recorded Confirmed nebulizer and compressor (Comp-Air #1 ea 07/16/16 03/13/23 Elite Comp Neb System device) fluticasone propionate 50 2 spray intranasal DAILY #9.9 grams 11/13/21 03/13/23 mcg/actuation nasal spray,suspension ipratropium 0.5 mg-albuterol 3 mg 3 ml inhalation QID PRN wheezing 12/05/21 03/13/23 (2.5 mg base)/3 mL nebulization #90 mL soln ondansetron 4 mg disintegrating 4 mg PO Q6H PRN #14 tabs 05/30/22 03/13/23 tablet plecanatide 3 mg tablet (Trulance) 3 mg PO DAILY constipation #90 tabs 05/31/22 03/13/23 tamsulosin 0.4 mg capsule 0.4 mg PO DAILY #30 caps 09/05/22 03/13/23 sertraline 100 mg tablet 200 mg PO DAILY #180 tabs 09/24/22 03/13/23 atorvastatin 40 mg tablet 40 mg PO DAILY #90 tab-caps 10/22/22 03/13/23 sildenafil (pulm.hypertension) 20 20 - 100 mg PO DAILY PRN sexual 10/29/22 03/13/23 mg tablet activity #30 tabs pantoprazole 40 mg tablet,delayed 40 mg PO BID #180 tab-caps 11/10/22 03/13/23 release albuterol sulfate 90 mcg/actuation 2 puff inhalation Q6H PRN PRN 01/06/23 03/13/23 aerosol inhaler (ProAir HFA) bronchospasm #1 inh budesonide-formoterol HFA 80 1 puff inhalation BID ##1 01/06/23 03/13/23 mcg-4.5 mcg/actuation aerosol inhaler (Symbicort) ezetimibe 10 mg tablet (Zetia) 10 mg PO DAILY #90 tab-caps 01/06/23 03/13/23 [id number] 1 cap PO BID #180 caps 01/06/23 03/13/23 12,000-38,000-60,000 unit capsule,delayed rel (Creon) linaclotide 72 mcg capsule 72 mcg PO QAM 02/25/23 03/13/23 (Linzess) levofloxacin 750 mg tablet 750 mg PO DAILY 10 days #10 tabs 03/13/23 oxycodone 5 mg capsule 5 mg PO BID PRN #5 caps 03/13/23 Previous Rx's Medication Instructions Recorded fluticasone propionate 50 2 spray intranasal DAILY #9.9 grams 11/13/21 mcg/actuation nasal spray,suspension ipratropium 0.5 mg-albuterol 3 mg 3 ml inhalation QID PRN wheezing 12/05/21 (2.5 mg base)/3 mL nebulization #90 mL soln ondansetron 4 mg disintegrating 4 mg PO Q6H PRN #14 tabs 05/30/22 tablet plecanatide 3 mg tablet (Trulance) 3 mg PO DAILY constipation #90 tabs 05/31/22 tamsulosin 0.4 mg capsule 0.4 mg PO DAILY #30 caps 09/05/22 sertraline 100 mg tablet 200 mg PO DAILY #180 tabs 09/24/22 atorvastatin 40 mg tablet 40 mg PO DAILY #90 tab-caps 10/22/22 sildenafil (pulm.hypertension) 20 20 - 100 mg PO DAILY PRN sexual 10/29/22 mg tablet activity #30 tabs pantoprazole 40 mg tablet,delayed 40 mg PO BID #180 tab-caps 11/10/22 release albuterol sulfate 90 mcg/actuation 2 puff inhalation Q6H PRN PRN 01/06/23 aerosol inhaler (ProAir HFA) bronchospasm #1 inh budesonide-formoterol HFA 80 1 puff inhalation BID ##1 01/06/23 mcg-4.5 mcg/actuation aerosol inhaler (Symbicort) ezetimibe 10 mg tablet (Zetia) 10 mg PO DAILY #90 tab-caps 01/06/23 [id number] 1 cap PO BID #180 caps 01/06/23 12,000-38,000-60,000 unit capsule,delayed rel (Creon) levofloxacin 750 mg tablet 750 mg PO DAILY 10 days #10 tabs 03/13/23 oxycodone 5 mg capsule 5 mg PO BID PRN #5 caps 03/13/23 Allergies Allergy/AdvReac Type Severity Reaction Status Date / Time Fish Containing Products Allergy Intermediate hives Verified 03/13/23 13:41 aspirin AdvReac Intermediate epistaxis Verified 03/13/23 13:41 seafood Allergy Intermediate Hives Uncoded 03/13/23 13:41 hydrocodone-homatropine AdvReac Intermediate GI UPSET Uncoded 03/13/23 13:41 General Stated Complaint: Male Reproductive Problem DONG: 3 PFSH All Active Problems (Updated 03/13/23 @ 17:00 by KYLE Larson) Pain in scrotum (Acute) Fever (Acute) Cold intolerance (Acute) Finger pain (Acute) Erectile dysfunction (Acute) Prediabetes (Acute) Chronic pancreatitis (Acute) s/p stent[place] [facility] [place] Cyst of skin (Acute) TOP OF LEFT FOOT-PAINFUL Loss of taste (Acute) Neck pain (Acute) Sebaceous cyst (Acute) Scrotal lesion (Acute) Viral warts (Acute) Wart of hand (Acute) Burning sensation of feet (Acute) Ankle pain (Acute) right, chronic Acquired deformity of nail (Acute) s/p nail excision and matrix ablation 11/10/19 COVID-19 (Acute) Acute pancreatitis (Acute) Continuous tobacco abuse (Chronic) Chest pain at rest (Acute) RADIATION DOWN HIS ARMS Tobacco use (Chronic) Below-knee amputation of right lower extremity (Acute) Acute cholecystitis (Acute) Skin ulcer (Acute) S/P BKA (below knee amputation) (Acute) Sensorineural hearing loss (SNHL) of both ears (Acute) Chest pain (Acute) Abnormal flushing and sweating (Acute) Neck pain on left side (Acute) Medical History (Updated 03/13/23 @ 17:00 by KYLE Larson) Acute on chronic pancreatitis Anxiety Arthritis FOOT/ANKLE Asthma 09/15/12 Callous ulcer REFERRED TO DERM 12/22/13 Constipation due to opioid therapy Depression with anxiety Ganglion cyst Gastritis GERD (gastroesophageal reflux disease) Hyperglycemia Hyperlipidemia Hypoglycemia Insomnia Lipoma Low back pain associated with a spinal disorder other than radiculopathy or spinal stenosis Lung nodules Migraine Mood disorder deteriorated Neuropathy Partial Achilles tendon tear left 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 Snowblowing injury causing partial amputation Surgical revision of amputation DOS: 08/31/18 Partial traumatic transphalangeal amputation of right ring finger Snowblowing injury causing partial amputation Surgical revision of amputation DOS: 08/31/18 Sensorineural hearing loss of both ears tobacco abuse Surgical History (Updated 03/06/23 @ 09:35 by KYLE Schneider) History of excision of mass History of neck surgery History of spinal surgery History of surgical 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 reports putting hand in well blower Hx of arthroscopic knee surgery Hx of right BKA [place]21[place] [facility] [place] Nail deformity S/P Excision: 02/25/2023 Postsurgical arthrodesis status (08/22/20) rt ankle Status post carpal tunnel release Tibial fracture S/P tibial nail fixation. Family History Father Alcohol abuse Essential hypertension Heart disease Neoplasm Stroke Mother Essential hypertension COPD (chronic obstructive pulmonary disease) Depression Hyperlipidemia Neoplasm Stroke Asthma S[place]LING ADHD (attention deficit hyperactivity disorder) Sister No problems noted. Brother Essential hypertension Grandfather Diabetes Alcohol abuse Grandfather Brain tumor Stroke Grandmother Diabetes Grandmother Heart disease Neoplasm Cervical cancer Stroke Family History Blood disorder Neoplasm Stomach,melanoma Social History Smoking/Tobacco Use Status: Current every day Tobacco Type: cigarettes Tobacco: How many years used: 30 Second Hand Exposure: Yes Counseling given: provider counseling Smoking risk assessment performed?: Yes Alcohol Intake: former Drug use: Never Substance use type: does not use Details: Stated 6 mos sobriety Household members: spouse Housing: apartment Number of Children: 4 Communication Needs: Hard of Hearing Do you need help understanding health information?: Rarely Pets and animals: Yes Pets and animals: cat(s) and dog(s) Sexually active: No Do you think of yourself as: straight/heterosexual Current gender identity: female What is your relationship status?: How often do you talk on the phone with friends or family?: three or more times per week Do you belong to any clubs or organized social groups?: no Panel score (0-1 are the most socially isolated patients): 2 What type of physical activity do you participate in: walking, aerobic and swimming Duration: < 15 minutes/day Mariajose/Temple: No preference Special mariajose needs: No Seatbelt use: always Helmet use: No Drive intox or ride w/intox route sales driver: No Do you feel safe at home: Yes Do you feel safe in your relationship?: Yes Exam Narrative Exam Narrative: Calm and cooperative, no scleral icterus, lungs clear to auscultation bilaterally, cardiac rate rhythm regular, mild diffuse abdominal tenderness, no obvious rashes or lesions Course Vital Signs Vital signs: Vital Signs Temperature 37.8 C H 03/13/23 13:36 Pulse 106 H 03/13/23 13:36 Respiratory Rate 18 03/13/23 13:36 Blood Pressure 97/61 L 03/13/23 13:36 Pulse Oximetry 95 03/13/23 13:36 Temperature 37.8 C H 03/13/23 13:36 Temperature Source Temporal Artery Scan 03/13/23 13:36 Pulse 106 H 03/13/23 13:36 Respiratory Rate 18 03/13/23 13:36 Respiratory Effort Non-Labored, Short of Breath 03/13/23 13:40 Blood Pressure 97/61 L 03/13/23 13:36 Blood Pressure Position Sitting 03/13/23 13:36 Pulse Oximetry 95 03/13/23 13:36 Oxygen Delivery Method Room Air 03/13/23 13:36 Oxygen Flow Rate 0 03/13/23 13:36 Pain Level 8 03/13/23 14:18 Lab/Test Results Lab/Test Results: 03/13/23 14:17 Blood Blood Culture - Pending 03/13/23 14:25 Blood Blood Culture - Pending Laboratory Tests Range/Units 03/13/23 03/13/23 03/13/23 14:15 14:17 14:17 WBC (4.4-10.8) 10^3/uL 7.07 RBC (4.36-5.78) 10^6/uL 5.34 Hgb (13.5-17.5) g/dL 14.6 Hct (40.0-50.0) % 44.0 MCV (80-95) fL 82 MCH (27.0-33.0) pg 27.3 MCHC (32.0-36.0) % 33.2 RDW (11.8-14.1) % 15.0 H Plt Count (130-400) 10^3/uL 165 MPV (8.0-11.0) fL 9.6 Immature Gran % 0.4 Neutrophils % 84.0 Lymphocytes % 7.5 Monocytes % 7.4 Eosinophils % 0.6 Basophils % 0.1 Nucleated RBC % (0.0-0.3) % 0.0 Absolute Neutrophils (1.2-6.7) 10^3/uL 5.94 Absolute Lymphocytes (1.2-3.4) 10^3/uL 0.53 L Absolute Monocytes (0.1-0.8) 10^3/uL 0.52 Absolute Eosinophils (0.0-0.7) 10^3/uL 0.04 Absolute Basophils (0.0-0.2) 10^3/uL 0.01 VBG Lactate (0.6-1.4) mmol/L Sodium (136-145) mmol/L 136 Potassium (3.5-5.1) mmol/L 3.8 Chloride (98-107) mmol/L 102 Carbon Dioxide (21.0-32.0) mmol/L 28.8 Anion Gap (3-11) mmol/L 5.2 BUN (7-18) mg/dL 9 Creatinine (0.70-1.30) mg/dL 1.0 Est GFR (CKD-EPI 2020) (mL/min/1.73m2) 92.26 Glucose (74-106) mg/dL 94 Calcium (8.5-10.1) mg/dL 8.5 Total Bilirubin (0.2-1.0) mg/dL 1.4 H AST (15-37) U/L 29 ALT (16-63) U/L 45 Alkaline Phosphatase (46-116) U/L 113 Total Protein (6.4-8.2) g/dL 7.0 Albumin (3.4-5.0) g/dL 3.6 Urine Color (Yellow) Yellow Urine Clarity (Clear) Clear Urine pH (5-8) 6.0 Ur Specific [place] (1.005-1.025) 1.020 Urine Protein (Negative) mg/dL Negative Urine Ketones (Negative) mg/dL Trace H Urine Blood (Negative) Negative Urine Nitrite (Negative) Negative Urine Bilirubin (Negative) Small H Urine Urobilinogen (Up to 0.2) mg/dL 1.0 H Ur Leukocyte Esterase (Negative) Negative Urine Glucose (Negative) mg/dL Negative Range/Units 03/13/23 14:25 WBC (4.4-10.8) 10^3/uL RBC (4.36-5.78) 10^6/uL Hgb (13.5-17.5) g/dL Hct (40.0-50.0) % MCV (80-95) fL MCH (27.0-33.0) pg MCHC (32.0-36.0) % RDW (11.8-14.1) % Plt Count (130-400) 10^3/uL MPV (8.0-11.0) fL Immature Gran % Neutrophils % Lymphocytes % Monocytes % Eosinophils % Basophils % Nucleated RBC % (0.0-0.3) % Absolute Neutrophils (1.2-6.7) 10^3/uL Absolute Lymphocytes (1.2-3.4) 10^3/uL Absolute Monocytes (0.1-0.8) 10^3/uL Absolute Eosinophils (0.0-0.7) 10^3/uL Absolute Basophils (0.0-0.2) 10^3/uL VBG Lactate (0.6-1.4) mmol/L 0.9 Sodium (136-145) mmol/L Potassium (3.5-5.1) mmol/L Chloride (98-107) mmol/L Carbon Dioxide (21.0-32.0) mmol/L Anion Gap (3-11) mmol/L BUN (7-18) mg/dL Creatinine (0.70-1.30) mg/dL Est GFR (CKD-EPI 2020) (mL/min/1.73m2) Glucose (74-106) mg/dL Calcium (8.5-10.1) mg/dL Total Bilirubin (0.2-1.0) mg/dL AST (15-37) U/L ALT (16-63) U/L Alkaline Phosphatase (46-116) U/L Total Protein (6.4-8.2) g/dL Albumin (3.4-5.0) g/dL Urine Color (Yellow) Urine Clarity (Clear) Urine pH (5-8) Ur Specific [place] (1.005-1.025) Urine Protein (Negative) mg/dL Urine Ketones (Negative) mg/dL Urine Blood (Negative) Urine Nitrite (Negative) Urine Bilirubin (Negative) Urine Urobilinogen (Up to 0.2) mg/dL Ur Leukocyte Esterase (Negative) Urine Glucose (Negative) mg/dL
[2023-03-13] MEDS: Omnipaque 350 MG/ML 100 ML BTL IJ (15:31)
[2023-03-13] MEDS: Normal Saline - Diluent 50 ML VIAL IJ (15:31)
[2023-03-13] MEDS: Normal Saline Flush 10 ML SYR IVP (15:32)
[2023-03-13] MEDS: levoFLOXacin 500 MG, levoFLOXacin 250 MG 750 MG PO (16:58)
[2023-03-16 11:47] LABS: Lyme Ab w Rflx to Lyme Confirm Negative (Negative)
[2023-03-18 13:00] LABS: Anaplasma phagocytophilum Negative (Negative); B. miyamotoi PCR Negative (Negative); Babesia divergens/MO-1 Negative (Negative); Babesia duncani Negative (Negative); Babesia microti Negative (Negative); Ehrlichia chaffeensis Negative (Negative); Ehrlichia ewingii/canis Negative (Negative); Ehrlichia muris eauclairensis Negative (Negative)
== END 2023-03-13 17:43 | disposition home or self-care (01) ==
PROVIDERS: Emergency Provider Physician Assistant; PCP Family Medicine
DX: N50.82 Scrotal pain (principal); R50.9 Fever, unspecified
CPT/HCPCS: 80053; 87040; 87491; 87591; 87798; 96360; 99285; 71045; 74177; 76870; 81003; 83605; 85025; 86618; 99284; J3490

== ENCOUNTER 2023-03-25 13:21 | Outpatient (CLI) | payer MEDICARE, MEDICAID, SELFPAY ==
--- NOTE | 2023-03-25 09:30 | DI.RAD_ITS ---
Exam(s) XR CHEST 2V PA LATERAL EXAM: XR CHEST 2V PA LATERAL CLINICAL HISTORY: productive cough, chest pain, r07.9 TECHNIQUE: 2D digital imaging was performed of the chest. Two images were obtained. PA and lateral views were obtained. COMPARISON: CR XR PORTABLE CHEST AP from 03/13/2023 FINDINGS: MEDIASTINUM: Normal. HEART: Normal. PULMONARY VASCULATURE: Normal. LUNGS: Clear. PLEURAL SPACE: No pleural effusion or pneumothorax. BONE:Within normal limits for the patient's age. OTHER FINDINGS:Normal. IMPRESSION: No acute pulmonary findings. DATA REPOSITORY: RADIATION DOSE DELIVERED:
== END 2023-03-25 13:41 ==
LOC: DI 13:22
PROVIDERS: PCP Family Medicine; Visit Provider Nurse Practitioner Family
DX: R07.9 Chest pain, unspecified (principal)
CPT/HCPCS: 71046

== ENCOUNTER 2023-05-14 02:43 | Outpatient (CLI) | payer MEDICARE, MEDICAID, SELFPAY ==
--- NOTE | 2023-05-14 | DI.MRI_ITS ---
Exam(s) MR CERVICAL SPINE WO EXAM: MR CERVICAL SPINE WO CLINICAL HISTORY: CERVICAL SPONDYLOSIS, M47.812 TECHNIQUE: Multiplanar multisequence MRI of the cervical spine was performed without intravenous con trast. COMPARISON: MR MR CERVICAL SPINE WO/W from 08/01/2022 FINDINGS: OSSEOUS:There has been interval additional surgery. Anterior fusion plate at C5-6 is again noted wit h affective fusion at this level. However, there is a been interval surgery at C3-4 and C4-5 levels with intraosseous artifact from intervertebral vertebral devices at these 2 levels now also evident. There is no abnormal signal which would suggest discitis/osteomyelitis.. CERVICOMEDULLARY JUNCTION: Intact with no evidence of cerebellar tonsillar ectopia. No obvious abnor mality of the odontoid process. No evidence of Chiari 1 malformation. CERVICAL SPINAL CORD: There is no abnormal signal in the cervical spinal cord and no evidence of foca l cord atrophy nor focal cord swelling. INDIVIDUAL LEVELS: C2-3: This level continues to exhibit normal disc height. There is no disc herniation or central can al stenosis evident at this level. There is some degenerative change in the left facet joint again n oted at this level. Right facet joint veins unremarkable. There is no significant foraminal stenosi s on either side at this level. C3-4: This disc space is presently contains surgically placed devices. There is no disc herniation e vident at this level. Central canal dimensions are lower normal. The previously present posterior d isc-osteophyte complex is not evident on the present study. There are new mild degenerative changes in the facets.. Mild foraminal stenosis bilaterally, slightly more so on the left side. C4-5: This disc space also now contains similar surgically placed devices to what is present at C3-4. There is decrease in posterior disc-osteophyte complex when compared to previous. No disc herniati on evident. Central canal dimensions are within normal limits. Minimal facet joint changes. No sig nificant foraminal stenosis at this level. C5-6: There is fusion across this disc space from prior fusion. Canal dimensions are lower normal. There is also an element of fusion at the level of the facet joints. No foraminal stenosis evident o n either side at this level. C6-7: This level continues to exhibit chronic disc space narrowing. There is no surgical hardware at this level. There is posterior in this-posterior bony ridging again noted with similar findings to previous. Central spinal canal stenosis again noted at this level. AP dimension of the canal is 7-8 mm. There is no obvious facet arthropathy at this level.. There is moderate foraminal stenosis cindy aterally at this level. C7-T1: This level again exhibits chronic advanced disc space narrowing, similar to previous. There i s posterior disc-osteophyte complex which appears similar to previous but the central canal dimension s are within lower normal limits at this level. There is moderate bilateral facet arthropathy at thi s level but without prominent foraminal stenosis on either side at this level. IMPRESSION: 1. Compared to the prior MRI scan 08/01/2022 there has been interval further surgery at C3-4 and C4-5 levels with significant improvement at these levels as described above. 2. The main finding now is at the C6-7 level which is 1 level below the lowest fusion level and which again exhibits advanced chronic disc space narrowing and mild-moderate central spinal canal stenosis , unchanged. Also moderate bilateral foraminal stenosis is again noted at this level. 3. Chronic degenerative disc disease also again noted at-T1 level but without prominent central nor f oraminal stenosis at this level. 4. There is no evidence of myelitis signal in the cervical spinal cord. No evidence of focal cord a trophy nor focal cord swelling. DATA REPOSITORY:
== END 2023-05-14 03:03 ==
LOC: DI 02:44
PROVIDERS: PCP Family Medicine; Visit Provider Physician Assistant Surgical
DX: M47.813 Spondylosis without myelopathy or radiculopathy, cervicothoracic region (principal)
CPT/HCPCS: 94060; 72141

== ENCOUNTER 2023-05-14 04:37 | Outpatient (CLI) | payer MEDICARE, MEDICAID, SELFPAY ==
[2023-05-14] MEDS: Inhaler, Assist Device 1 EACH MC (11:28)
[2023-05-14] MEDS: Albuterol HFA 18 GM 200 PUFF INH IH (11:28)
--- NOTE | 2023-05-15 15:34 | W.PFT ---
Date of service: 05/14/23 Time of Service: 10:02 Pulmonary Function Test Result Indications: Asthma Interpretation Spirometry: There is no airflow limitation. There is a restrictive appearing spirometry. No bronchodilator response. Impression Restrictive spirometry. Recommend full PFT's with lung volumes for further investigation. Clinical Correlation therefore is recommended.
== END 2023-05-14 04:38 | disposition home or self-care (01) ==
LOC: RT 04:37
PROVIDERS: PCP Family Medicine; Visit Provider Nurse Practitioner Family
DX: J45.909 Unspecified asthma, uncomplicated (principal)
CPT/HCPCS: 94060

== ENCOUNTER 2023-06-23 11:31 | Day surgery (SDC) | payer MEDICARE, MEDICAID, SELFPAY ==
--- NOTE | 2023-06-23 07:36 | W.PM.DSUDISC ---
Date of service: 06/23/23 Time of Service: 07:42 Discharge Plan Disposition Patient Disposition: Home Condition: Good Discharge Details Reason For Visit: RRF Revision Amputation Attending Provider: Arcenio Schofield Primary Care Provider: Brian Longo Home Meds and New Rx's Prescriptions: New hydrocodone-acetaminophen 5-325 mg tablet 1 tab PO Q6H PRN (Reason: severe pain) Qty: 6 0RF Rx Instructions: Take one tablet up to every 6 hours as needed for severe postoperative pain acetaminophen 500 mg tablet 500 mg PO Q6H PRN (Reason: pain) Qty: 60 2RF Continued ezetimibe [Zetia] 10 mg tablet 10 mg PO DAILY Qty: 90 3RF Creon 12,000-38,000 -60,000 unit capsule,delayed release(DR/EC) 1 cap PO BID Qty: 180 3RF Patient Comments: 06/23/23 Pt does not use Rx Instructions: administer with meals and/or snacks fluticasone propionate 50 mcg/actuation spray,suspension 2 spray intranasal DAILY Qty: 9.9 5RF Patient Comments: 06/23/23 Pt does not use Rx Instructions: administer into each nostril albuterol sulfate [ProAir HFA] 90 mcg/actuation HFA aerosol inhaler 2 puff Inhalation Q6H PRN PRN (Reason: bronchospasm) Qty: 1 3RF budesonide-formoterol [Symbicort] 80-4.5 mcg/actuation HFA aerosol inhaler 1 puff Inhalation BID Qty: 1 11RF (DME) nebulizer and compressor [Comp-Air Elite Comp Neb System] 1 EACH device 1 ea Miscellaneous q 4 h prn Qty: 1 ipratropium-albuterol 0.5 mg-3 mg(2.5 mg base)/3 mL solution for nebulization 3 ml inhalation QID PRN (Reason: wheezing) Qty: 90 3RF Trulance 3 mg tablet 3 mg PO DAILY Qty: 90 3RF sertraline 100 mg tablet 200 mg PO DAILY Qty: 180 3RF Rx Instructions: dose increase 04/19/21 dose increase 09/17/21 pantoprazole 40 mg tablet,delayed release (DR/EC) 40 mg PO BID Qty: 180 3RF Linzess 72 mcg Capsule 72 mcg PO QAM ondansetron 4 mg tablet,disintegrating 4 mg PO Q6H PRNQty: 14 1RF Patient Comments: 06/23/23 Pt not using tamsulosin 0.4 mg Capsule 0.4 mg PO DAILY Qty: 30 0RF Patient Comments: Pt stopped using. 06/23/23 Discontinued oxycodone 5 mg capsule 5 mg PO BID PRNQty: 5 0RF No Action atorvastatin [Lipitor] 40 mg tablet 40 mg PO DAILY sildenafil (pulm.hypertension) [Revatio] 20 mg tablet 20 - 100 mg PO DAILY PRN (Reason: sexual activity) Patient Comments: 06/23 Pt does not use Discharge Instructions Additional Instructions: RRF Revision Amputation Discharge Instructions Activity:?You may use your fingers for light activity.? You should limit any excessive motion or forceful gripping until the sutures have been removed.? Dressings:?You should keep the initial surgical dressing in place until your follow-up visit in the office. You may re-wrap the dressing if needed for comfort. If it starts to come off or you'd like to remove it, you may do so at 48 hours and then cover with band-aid. You should cover the hand to avoid any water getting into dressing for hygiene purposes. You should keep the dressings and the wound clean at all times.? You may cover it with a band-aid. Medications: -?You should take Tylenol (up to 3000mg per day) and Ibuprofen (up to 2400mg per day) around the clock as prescribed or per table assembler metal's recommendations. - You have been prescribed a narcotic, Hydrocodone, to take as needed for severe postoperative pain. - You may also apply ice. Follow-up:?7-10 days for wound check and suture removal. Referrals: Arcenio Schofield MD [ [facility] STAFF PHYSICIAN] - Activity:: Elevate Remove Dressings/Wound Care:: Do Not Remove Shower/Bathe:: Cover Diet:: As Tolerated Discharge Orders Discharge Orders: Discharge Order (Routine); Ordered 06/23/23 Ordered By: Abi Welch DS: Diagnosis Discharge Diagnosis (1) Acquired deformity of nail: Status: Acute
[2023-06-23 12:19] VITALS: BP 110/70; PULSE 80; RESP 16; TEMP 36.6; O2SAT 96
[2023-06-23] MEDS: Lidocaine 1% Pres-Free 30 ML VIAL (13:18)
[2023-06-23] MEDS: Sodium Bicarbonate 50 MEQ/50 ML VIAL (13:18)
[2023-06-23 13:40] VITALS: BP 103/59; PULSE 56; RESP 16; TEMP 36.5; O2SAT 99
--- NOTE | 2023-06-23 21:36 | ROE_ITS ---
Date of service: 06/23/23 Time of Service: 13:40 Operative Note Operative Note DATE OF PROCEDURE: 06/23/23 PRE-OP DIAGNOSIS: Dystrophic Nail - Right ring finger POST-OP DIAGNOSIS: same PROCEDURE: Revision Amputation - Right Ring Finger SURGEON: Arcenio Schofield ANESTHESIA TYPE: Local By Surgeon Refer to Anesthesia Record ESTIMATED BLOOD LOSS: 5 PATHOLOGY: none sent COMPLICATIONS: None Patient was transported to: same day Patient's condition: stable Indications: I have seen Cole in clinic for symptoms of a recurrent, dystrophic nail follow ing traumatic transphalangeal amputation. The nail persisted and caused pain due to direct contact and with use. The nail has been excised twice before but continues to recur. He requested that a more aggressive revision amputation be performed. I discussed revision amputation with the patient. I reviewed the risks of the procedure to include, but not limited to, bleeding, infection, pain, stiffness, recurrence, damage to nerves or vessels. Despite these risks, the patient elected to proceed. Findings: The right ring finger was revised removing bone and soft tissue from the dorsum of the finger and smoothing the edges with primary closure. Procedure Description: Cole was greeted in the preoperative holding area where the correct side was identified and marked. The consent was reviewed with the patient and signed. All questions were answered. He was taken back to the operating room. The patient was placed into the supine position on the operating room table with the right right arm on an arm board. All bony prominences were well padded. No prophylactic antibiotics were adm inistered since this was a clean, elective hand surgical case. The right arm was then prepped with Chloraprep and draped in a standard fashion with stockinette and extremity drape. A timeout to confirm correct identity, side and site, procedure, allergies, anesthesia, and medical concerns was performed. A digital block was then performed using 1% lidocaine with epinephrine and buffered with sodium bicarbonate. This was allowed time to set up completely and was tested before proceeding with the case. A an elliptical incision was made overlying the dystrophic nail. A full- thickness wedge of skin and soft tissue was taken out all the way to the remnant distal phalanx. Subperiosteal dissection was carried out around the remnant distal phalanx and a rongeur was utilized to remove the 3 to 4 mm of remnant distal phalanx. This was removed without difficulty. The wound was irrigated. The skin was then closed using a #4-0 nylon in interrupted fashion. The finger was dressed with Xeroform, 4 x 4, conform dressing. The patient tolerated the procedure well and was returned to the Same Day Surgery area in a stable condition suffering no known complication.
== END 2023-06-23 14:00 | disposition home or self-care (01) ==
PROVIDERS: PCP Family Medicine; Visit Provider Student in an Organized Health Care Education/Training Program
PROC: (CPT 26951; principal; 2023-06-23 13:15)
DX: L60.3 Nail dystrophy (principal); S68.61 Complete traumatic transphalangeal amputation of other and unspecified finger(s); X58.XXXS Exposure to other specified factors, sequela
CPT/HCPCS: 26236

== ENCOUNTER → 2023-07-03 10:35 | Outpatient (BNVA) | payer MEDICARE, MEDICAID, SELFPAY | PROVIDERS: PCP Family Medicine; Referring Provider Family Medicine; Visit Provider Student in an Organized Health Care Education/Training Program | DX: L60.8 Other nail disorders (principal); S68.61 Complete traumatic transphalangeal amputation of other and unspecified finger(s) ==

== ENCOUNTER 2023-10-29 19:48 | Emergency (ER) | payer MEDICARE, SELFPAY ==
[2023-10-29] VITALS (15 sets, daily range): BP systolic 104–123; BP diastolic 36–64; PULSE 67–95; RESP 20; TEMP 36.4; O2SAT 92–99
--- NOTE | 2023-10-29 20:15 | DI.RAD_ITS ---
Exam(s) XR PORTABLE CHEST AP EXAM: XR PORTABLE CHEST AP CLINICAL HISTORY: cough TECHNIQUE: 2D digital imaging was performed of the chest. One image was obtained. An AP view was ob tained. COMPARISON: CR XR PORTABLE CHEST AP from 03/13/2023 CR XR CHEST 2V PA LATERAL from 03/25/2023 FINDINGS: MEDIASTINUM: Normal. HEART: Normal. PULMONARY VASCULATURE: Normal. LUNGS: There is a new opacity in the right infrahilar region. The lungs are otherwise clear. PLEURAL SPACE: No pleural effusion or pneumothorax. BONE:Within normal limits for the patient's age. OTHER FINDINGS:Normal. IMPRESSION: New right infrahilar opacity. In the appropriate clinical setting, this may represent pneumonia. A follow-up chest x-ray is recommended to document complete resolution of the opacity and to exclude un derlying mass. DATA REPOSITORY: RADIATION DOSE DELIVERED:
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
[2023-10-29] MEDS: Normal Saline 1,000 ML 1000 ML IV (20:35)
[2023-10-29] MEDS: Ondansetron 4 MG/2 ML VIAL IVP (20:35)
[2023-10-29] MEDS: methylPREDNISolone SUCC 125 MG VIAL IVP (20:35)
[2023-10-29 20:39] LABS: Abs Immature Grans 0.02 10^3/uL (0.0-0.06); Absolute Basophil Count 0.03 10^3/uL (0.0-0.2); Absolute Eosinophil Count 0.06 10^3/uL (0.0-0.7); Absolute Lymphocyte Count 3.82 10^3/uL (1.2-3.4); Absolute Monocyte Count 0.53 10^3/uL (0.1-0.8); Absolute Neutrophil Count 4.96 10^3/uL (1.2-6.7); Basophils % 0.3; Eosinophils % 0.6; HCT 44.4 % (40.0-50.0); HGB 14.6 g/dL (13.5-17.5); Immature Grans % 0.2; Lymphocytes % 40.6; MCH 27.4 pg (27.0-33.0); MCHC 32.9 % (32.0-36.0); MCV 83 fL (80-95); Monocytes % 5.6; Neutrophils % 52.7; Platelet Count 226 10^3/uL (130-400); RBC 5.33 10^6/uL (4.36-5.78); RDW 14.6 % (11.8-14.1); RDW-SD 44.6 fL; WBC 9.42 10^3/uL (4.4-10.8)
[2023-10-29 20:52] LABS: Lipase 45 U/L (16-77)
[2023-10-29 20:57] LABS: ALT 15 U/L (16-63); AST 14 U/L (15-37); Albumin 3.4 g/dL (3.4-5.0); Alkaline Phosphatase 119 U/L (46-116); Anion Gap 7.6 mmol/L (3-11); BUN 6 mg/dL (7-18); Bilirubin, Total 0.7 mg/dL (0.2-1.0); CO2 29.4 mmol/L (21.0-32.0); CREATININE 0.8 mg/dL (0.70-1.30); Calcium 9.4 mg/dL (8.5-10.1); Chloride 104 mmol/L (98-107); Estimated GFR 107.82 (mL/min/1.73m2); Glucose 112 mg/dL (74-106); Potassium 3.3 mmol/L (3.5-5.1); Sodium 141 mmol/L (136-145); Total Protein 7.4 g/dL (6.4-8.2)
--- NOTE | 2023-10-29 21:03 | DI.VRAD_ITS ---
PROCEDURE INFORMATION: Exam: XR Chest Exam date and time: 10/29/2023 8:41 PM Age: 48 years old Clinical indication: Cough TECHNIQUE: Imaging protocol: Radiologic exam of the chest. Views: 1 view. COMPARISON: CR XR CHEST 2V PA LATERAL 03/25/2023 11:16 AM FINDINGS: Lungs: Right infrahilar/lower lobe area of consolidation. This could represent a developing right lower lobe perihilar infiltrate. This was not present 03/25/2023. This region of opacification measures approximately 3.5 x 3.9 cm. Left lung is clear. Pleural spaces: No pleural effusion. Heart/Mediastinum: Normal heart size. Bones/joints: Degenerative thoracolumbar spine features. IMPRESSION: Features suggest development of a right lower lobe perihilar infiltrate in the interval since 03/25/2023. Recommend follow-up chest x-ray to evaluate for resolution of this process. A CT chest follow-up may be warranted. With the current chest x-ray appearance alone, a mass can not be excluded. Dictated and Authenticated by: Kev Berumen MD. Ordering:[facility] Vi Plummer MD
[2023-10-29] MEDS: Potassium Chloride 20 MEQ TABCR 40 MEQ PO (21:22)
[2023-10-29] MEDS: Doxycycline Hyclate 100 MG CAP PO (21:22)
[2023-10-29] MEDS: Ondansetron O.D.T. 4 MG TABEF, 3 TABS/BTL PO (21:29)
== END 2023-10-29 21:34 | disposition home or self-care (01) ==
PROVIDERS: Emergency Provider Emergency Medicine; PCP Family Medicine
DX: J18.9 Pneumonia, unspecified organism (principal); E87.6 Hypokalemia; J45.909 Unspecified asthma, uncomplicated; F17.210 Nicotine dependence, cigarettes, uncomplicated; Z89.511 Acquired absence of right leg below knee
CPT/HCPCS: 80053; 83690; 96361; 96374; 96375; 99283; 71045; 85025; J2405; J2930

== ENCOUNTER 2024-01-03 18:36 | Emergency (ER) | payer MEDICARE, SELFPAY ==
[2024-01-03 18:38] VITALS: BP 128/49; PULSE 70; RESP 14; TEMP 36.1; O2SAT 97
--- NOTE | 2024-01-03 19:00 | DI.RAD_ITS ---
Exam(s) XR CHEST 2V PA LATERAL EXAM: XR CHEST 2V PA LATERAL CLINICAL HISTORY: cough x 6 weeks. TECHNIQUE: 2D digital imaging was performed. COMPARISON: CR,XR XR PORTABLE CHEST AP from 10/29/2023 FINDINGS: 2 views: Heart size is normal. The mediastinum is not widened. Persistent area of infiltrate in the right lower lobe. Left lung is clear. No pleural effusions. IMPRESSION: Persistent right lower lobe infiltrate. Contrast infused CT scan recommended to determine infectious versus neoplasm. DATA REPOSITORY: RADIATION DOSE DELIVERED:
--- NOTE | 2024-01-03 19:00 | RT.EKG_ITS ---
APPROVED REPORT Exam: Resting ECG Reason for Exam: cough Patient Location: E HR:64 bpm ECG Measurements Heart Rate 64 AXIS WA 142 P 53 QRSd 91 QRS 7 QT 414 T 48 QTc 429 Conclusion Sinus rhythm...normal P axis, V-rate 60- 99 Low voltage, precordial leads...precordial leads <1.0mV appropriate intervals no ST segment or T wave abnormalities to suggest occlusive SD
[2024-01-03 19:22] VITALS: RESP 18
[2024-01-03] MEDS: Ondansetron O.D.T. 4 MG TABEF PO (19:24)
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
[2024-01-03 19:46] LABS: Abs Immature Grans 0.05 10^3/uL (0.0-0.06); Absolute Lymphocyte Count 3.18 10^3/uL (1.2-3.4); Absolute Monocyte Count 0.48 10^3/uL (0.1-0.8); Basophils % 0.3; Eosinophils % 0.3; HCT 39.8 % (40.0-50.0); HGB 13.1 g/dL (13.5-17.5); Immature Grans % 0.4; Lymphocytes % 27.2; MCHC 32.9 % (32.0-36.0); MCV 85 fL (80-95); MPV 8.9 fL (8.0-11.0); Monocytes % 4.1; Neutrophils % 67.7; Platelet Count 240 10^3/uL (130-400); RBC 4.68 10^6/uL (4.36-5.78); RDW 14.3 % (11.8-14.1); RDW-SD 44.7 fL; WBC 11.69 10^3/uL (4.4-10.8)
[2024-01-03 19:49] LABS: Absolute Basophil Count 0.04 10^3/uL (0.0-0.2); Absolute Eosinophil Count 0.04 10^3/uL (0.0-0.7); Absolute Neutrophil Count 7.91 10^3/uL (1.2-6.7)
[2024-01-03 20:02] LABS: ALT 14 U/L (16-63); AST 10 U/L (15-37); Albumin 2.9 g/dL (3.4-5.0); Alkaline Phosphatase 110 U/L (46-116); Anion Gap 9.1 mmol/L (3-11); BUN 7 mg/dL (7-18); Bilirubin, Total 0.6 mg/dL (0.2-1.0); CO2 28.9 mmol/L (21.0-32.0); CREATININE 0.9 mg/dL (0.70-1.30); Calcium 8.7 mg/dL (8.5-10.1); Chloride 103 mmol/L (98-107); Estimated GFR 104.05 (mL/min/1.73m2); Glucose 103 mg/dL (74-106); Lipase 35 U/L (16-77); Potassium 3.3 mmol/L (3.5-5.1); Sodium 141 mmol/L (136-145); Total Protein 7.6 g/dL (6.4-8.2)
--- NOTE | 2024-01-03 20:04 | DI.VRAD_ITS ---
PROCEDURE INFORMATION: Exam: XR Chest Exam date and time: 01/03/2024 7:27 PM Age: 48 years old Clinical indication: Cough; Patient HX: X 6 weeks TECHNIQUE: Imaging protocol: Radiologic exam of the chest. Views: 2 views. COMPARISON: CR XR PORTABLE CHEST AP 10/29/2023 8:41 PM FINDINGS: Lungs: Focal consolidation within the posteromedial right lower lobe, possibly pneumonia versus carcinoma. Pleural spaces: Unremarkable. No pleural effusion. No pneumothorax. Heart/Mediastinum: Normal. Bones/joints: Old, healed right mid clavicle fracture. Multilevel thoracic spine degenerative disc space narrowing. IMPRESSION: Focal consolidation within the posteromedial right lower lobe, possibly pneumonia versus carcinoma. Given presence of smaller finding on 10/29/2023 comparison radiograph, recommend chest CT with contrast for further evaluation. Dictated and Authenticated by: Joesph Daniel MD. Ordering:SAIGE Levin MD
--- NOTE | 2024-01-03 22:26 | NUR.NOTE ---
Pt placed om care management referral list to be seen by PCP for possible cancer of the lung, pt to be seen as soon as possible.
== END 2024-01-03 21:00 | disposition home or self-care (01) ==
LOC: ER 20:53
PROVIDERS: Emergency Provider Student in an Organized Health Care Education/Training Program; PCP Family Medicine
DX: R05.9 Cough, unspecified (principal); R11.10 Vomiting, unspecified; R91.8 Other nonspecific abnormal finding of lung field; F17.210 Nicotine dependence, cigarettes, uncomplicated
CPT/HCPCS: 36415; 80053; 83690; 93005; 99285; 71046; 85025; 93010; 99284

== ENCOUNTER → 2024-01-06 08:32 | Outpatient (CLI) | payer MEDICARE, SELFPAY ==
--- NOTE | 2024-01-06 08:30 | DI.CT_ITS ---
Exam(s) CT CHEST W EXAM: CT CHEST W CLINICAL HISTORY: f/u infiltrate on chest xr,r93.89 TECHNIQUE: Imaging Protocol: Axial computed tomography images with coronal and sagittal reformatted images were created and reviewed CONTRAST MATERIAL: Intravenous: Omnipaque 350 Contrast volume:structured data ml. COMPARISON: CT CT CHEST PE ABD PELVIS W from 07/12/2022 CR XR PORTABLE CHEST AP from 03/13/2023 CR,XR XR PORTABLE CHEST AP from 10/29/2023 CR,XR XR CHEST 2V PA LATERAL from 01/03/2024 FINDINGS: Pulmonary parenchyma: Large area of consolidation is noted at the inferomedial right lower lobe. The re are air bronchograms. There are few dilated cystic spaces. No additional infiltrates are seen. No dominant measurable mass. Tracheobronchial tree: No bronchiectasis or mucous plugging. Mediastinum and Mary: No dominant adenopathy or fluid collection. Small calcifications right paratrac heal region. Pleura: No effusion. No pneumothorax. Heart: The heart is not dilated. Mild coronary artery calcifications are seen. Aorta: Thoracic aorta non-dilated. Mild atherosclerotic changes. Upper abdomen: No acute findings.. Bones: Degenerative changes in the spine. Soft tissues: Unremarkable. IMPRESSION: Large area of consolidation in the right lower lobe. RADIATION DOSE DELIVERED: Total DLP DATA REPOSITORY: All CT scans at this facility are submitted to the National Radiology Data Registry (NRDR) Dose Index Registry (DIR) with the [employer] ([employer]). RADIATION OPTIMIZATION: All CT scans at this facility use at least one of these dose optimization te chniques: automated exposure control; mA and/or kV adjustment per patient size (includes targeted exa ms where dose is matched to clinical indication); or iterative reconstruction.
[2024-01-06] MEDS: Omnipaque 350 MG/ML 100 ML BTL IJ (13:02)
[2024-01-06] MEDS: Normal Saline - Diluent 50 ML VIAL IJ (13:02)
== END ==
PROVIDERS: PCP Family Medicine; Visit Provider Nurse Practitioner Family
DX: R93.89 Abnormal findings on diagnostic imaging of other specified body structures (principal)
CPT/HCPCS: 71260; J3490

== ENCOUNTER 2024-01-07 18:20 | Outpatient (REF) | payer MEDICARE, SELFPAY | END 2024-01-07 18:21 | disposition home or self-care (01) | LOC: LBN 18:20 | PROVIDERS: PCP Family Medicine; Visit Provider Nurse Practitioner Family | DX: R05.8 Other specified cough (principal); R09.3 Abnormal sputum | CPT/HCPCS: 87070; 87205 ==

== ENCOUNTER → 2024-01-26 02:02 | Outpatient (CLI) | payer MEDICARE, SELFPAY ==
--- NOTE | 2024-01-26 07:18 | DI.RAD_ITS ---
Exam(s) XR CHEST 2V PA LATERAL EXAM: XR CHEST 2V PA LATERAL CLINICAL HISTORY: reassess RLL infiltrate,chronic cough TECHNIQUE: 2D digital imaging was performed. Two views. COMPARISON: CR,XR XR CHEST 2V PA LATERAL from 01/03/[address] CHEST W from 01/06/2024 FINDINGS: HEART: Normal size. Aorta: Not dilated. PULMONARY VASCULATURE: Normal. LUNGS: Right lower lobe infiltrate remains present with only slight improvement compared to prior exa ms. No new infiltrates. PLEURAL SPACE: No pleural effusion or pneumothorax. BONE:Unremarkable for age. Soft tissues: Unremarkable. IMPRESSION: Persistent right lower lobe infiltrate. DATA REPOSITORY: RADIATION DOSE DELIVERED:
== END ==
PROVIDERS: PCP Family Medicine; Visit Provider Family Medicine
DX: R05.3 Chronic cough (principal); R91.8 Other nonspecific abnormal finding of lung field
CPT/HCPCS: 71046

== ENCOUNTER → 2024-02-04 09:07 | Outpatient (BNVA) | payer MEDICARE, SELFPAY | PROVIDERS: PCP Family Medicine; Referring Provider Family Medicine; Visit Provider Student in an Organized Health Care Education/Training Program | DX: R91.8 Other nonspecific abnormal finding of lung field (principal); J98.4 Other disorders of lung; Z72.0 Tobacco use | CPT/HCPCS: 99215 ==

== ENCOUNTER 2024-02-04 15:56 | Outpatient (REF) | payer MEDICARE, SELFPAY ==
[2024-02-04 23:12] LABS: Rheumatoid Factor <8.6 IU/mL (<12.0)
[2024-02-05 10:11] LABS: Cyclic Citrullinated Peptide <2.5 U/mL (<5.0)
[2024-02-05 12:10] LABS: Leukemia/Lymphoma by FC (Blood (See below)
[2024-02-05 14:30] LABS: ANA Interpretation Negative (Negative)
[2024-02-05 19:14] LABS: Myeloperoxidase Ab IgG <0.2 U; Proteinase 3 Ab (PR3) <0.2 U
[2024-02-06 14:48] LABS: Blastomyces Ag Value 17.1 ng/mL
[2024-02-06 16:42] LABS: Blastomyces Ag Result Detected
[2024-02-07 12:13] LABS: Fungitell Qualitative Negative (Negative); Fungitell Quantitative Value 56 pg/mL (<60 pg/mL)
== END 2024-02-04 15:57 | disposition home or self-care (01) ==
LOC: LBN 15:56
PROVIDERS: PCP Family Medicine; Visit Provider Student in an Organized Health Care Education/Training Program
DX: R91.8 Other nonspecific abnormal finding of lung field (principal)
CPT/HCPCS: 86200; 87305; 87449; 88185; 83516; 86038; 86431; 87385; 88184; 88189

== ENCOUNTER 2024-02-09 06:14 | Day surgery (SDC) | payer MEDICARE, SELFPAY ==
[2024-02-09] VITALS (14 sets, daily range): BP systolic 90–155; BP diastolic 31–80; PULSE 65–120; RESP 16–26; TEMP 36.4–36.8; O2SAT 93–97; BMI 21.2
[2024-02-09] MEDS: Lactated Ringers 1,000 ML 30 ML IV (06:51)
--- NOTE | 2024-02-09 07:04 | ANES.PREOP_ITS ---
General Info Date of Service Date Performed: 02/09/24 Height: 5 ft 11 in Weight: 68.946 kg Body Mass Index (BMI): 21.2 Surgical Procedure: Operation Date: 02/09/24 07:40 Proposed Procedure Side Surgeon p Bronchoscopy w/ BAL, poss endobronchial Bx & brushings Raven Tran MD Actual Procedure Side Surgeon p Bronchoscopy w/ BAL, poss endobronchial Bx & brushings Not Applicable Raven Tran MD Pre-Op Diagnosis Post-Op Diagnosis (1) Lung infiltrate on CT: (2) Tobacco use: (3) Cavitary lesion of lung: (1) Lung infiltrate on CT: (2) Tobacco use: (3) Cavitary lesion of lung: Meds Allergies and Home Medications Allergies Allergy/AdvReac Type Severity Reaction Status Date / Time Fish Containing Products Allergy Intermediate hives Verified 02/09/24 06:43 aspirin AdvReac Intermediate epistaxis Verified 02/09/24 06:43 seafood Allergy Intermediate Hives Uncoded 02/09/24 06:43 hydrocodone-homatropine AdvReac Intermediate GI UPSET Uncoded 02/09/24 06:43 Home Medication Medication Instructions Recorded nebulizer and compressor (Comp-Air #1 ea 07/16/16 Elite Comp Neb System device) acetaminophen 500 mg tablet 500 mg PO Q6H PRN pain #60 tabs 06/23/23 albuterol sulfate 90 mcg/actuation 2 puff inhalation Q6H PRN PRN 01/19/24 aerosol inhaler (ProAir HFA) bronchospasm #1 inh atorvastatin 40 mg tablet (Lipitor) 40 mg PO DAILY #90 tabs 01/19/24 ezetimibe 10 mg tablet (Zetia) 10 mg PO DAILY #90 tab-caps 01/19/24 pantoprazole 40 mg tablet,delayed 40 mg PO BID #180 tab-caps 01/19/24 release plecanatide 3 mg tablet (Trulance) 3 mg PO DAILY constipation #90 tabs 01/19/24 sertraline 100 mg tablet 200 mg (2 x 100 mg) PO DAILY #180 01/19/24 tabs itraconazole 100 mg capsule 200 mg (2 x 100 mg) PO DAILY #60 02/08/24 caps tiotropium 2.5 mcg-olodaterol 2.5 2 puff inhalation DAILY #4 grams 02/08/24 mcg/actuation mist for inhalation (Stiolto Respimat) budesonide-formoterol HFA 80 inhalation 02/09/24 mcg-4.5 mcg/actuation aerosol inhaler (Symbicort) Current Visit Medications: Current Medications Generic Name Dose Route Start Last Admin Trade Name Freq PRN Reason Stop Dose Admin Ringer's Solution 1,000 mls @ 30 mls/hr 02/09/24 06:00 02/09/24 06:51 IV 03/09/24 23:59 30 mls/hr INFUSION MIRANDA Administration IV Miscellaneous Supplies 1 each 02/09/24 06:00 Iv Access IV 03/09/24 23:59 DIRECTED MIRANDA Sodium Chloride 0 ml 02/09/24 06:00 Normal Saline Flush 10 Ml Syr IV 03/09/24 23:59 PRN PRN Sodium Chloride 0 ml 02/09/24 06:00 Normal Saline 10 Ml Vial IJ 03/09/24 23:59 DIRECTED PRN Sterile Water 0 ml 02/09/24 06:00 Water,Injection,Sterile 10 Ml Vial IJ 03/09/24 23:59 DIRECTED PRN PFSH Active Problems Active Problems: Problem Status Onset Code Cavitary lesion of lung J98.[address] R91.8 Chronic leg pain M79.606, G89.29 Productive cough R05.8 Infiltrate noted on imaging study R93.89 Imbalance R26.89 Conductive hearing loss, bilateral H90.0 Bilateral acute serous otitis media H65.03 Ankle pain M25.579 Chest pain at rest R07.9 Cyst of skin L72.9 Tobacco use Z72.0 Viral warts B07.9 Burning sensation of feet R20.8 Acquired deformity of nail L60.8 Scrotal lesion N50.9 Sebaceous cyst L72.3 Neck pain M54.2 Below-knee amputation of right lower extremity S88.111A Acute cholecystitis K81.0 Wart of hand B07.9 Loss of taste R43.2 Skin ulcer L98.499 S/P BKA (below knee amputation) Z89.519 Sensorineural hearing loss (SNHL) of both ears H90.3 Chest pain R07.9 Abnormal flushing and sweating R23.2, R61 Neck pain on left side M54.2 Continuous tobacco abuse Z72.0 Acute pancreatitis K85.90 COVID-19 U07.1 Chronic pancreatitis K86.1 Prediabetes R73.03 Erectile dysfunction N52.9 Finger pain M79.646 Cold intolerance R68.89 Medical History Medical History Cough Acute on chronic pancreatitis Constipation due to opioid therapy Gastritis Insomnia Hyperglycemia Lipoma Sensorineural hearing loss of both ears Partial Achilles tendon tear left Ganglion cyst Neuropathy Anxiety Lung nodules Mood disorder deteriorated Migraine Hypoglycemia Depression with anxiety Callous ulcer REFERRED TO DERM 12/22/13 Asthma 09/15/12 Arthritis FOOT/ANKLE 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 Snowblowing injury causing partial amputation Surgical revision of amputation DOS: 08/31/18 Partial traumatic transphalangeal amputation of right ring finger Snowblowing injury causing partial amputation Surgical revision of amputation DOS: 08/31/18 tobacco abuse GERD (gastroesophageal reflux disease) Hyperlipidemia Low back pain associated with a spinal disorder other than radiculopathy or spinal stenosis Medical History Comments:: 02/09/24: pt smoked 5 cigarettes before arriving in [facility] today Surgical History Surgical History Nail deformity S/P Excision: 02/25/2023 Hx of right BKA 11/21/21 [facility] [place] (Dr Murray) Postsurgical arthrodesis status (08/22/20) rt ankle Hx of arthroscopic knee surgery Tibial fracture S/P tibial nail fixation. 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 reports putting hand in tanbark peeler History of excision of mass History of neck surgery History of spinal surgery Status post carpal tunnel release Tobacco Smoking/Tobacco Use Status: Current every day Tobacco Type: cigarettes Second hand exposure: Yes Counseling given: provider counseling Alcohol Alcohol Intake: former Substance Use Substance use: Never Substance use type: does not use Vital Signs and Lab Results Vital Signs Most Recent Vital Signs in EMR: Most Recent Vital Signs Temp Pulse Resp BP Pulse Ox 36.6 C 71 16 98/40 L 97 02/09/24 06:30 02/09/24 06:30 02/09/24 06:30 02/09/24 06:30 02/09/24 06:30 Lab Results Blood Type / Crossmatch: No Data to Display Complete Blood Count: No Data to Display Complete Metabolic Panel: No Data to Display Liver Function Panel: No Data to Display Coagulation Panel: No Data to Display Cardiac Panel: No Data to Display Arterial Blood Gas: No Data to Display Venous Blood Gas: No Data to Display Pancreas Panel: No Data to Display Thyroid Panel: No Data to Display Infectious Disease: No Data to Display Blood Cultures: No Data to Display Toxicology Panel: No Data to Display Imaging and Studies Imaging and Studies Study information below may be from another EMR and interpreted by another provider. Please see original notes in EMR for more complete details. EKG Summary: Conclusion Sinus rhythm...normal P axis, V-rate 60- 99 Stress Test Summary: MPI Conclusion The ejection fraction was 41% with stress. There were no wall motion abnormalities. There is no evidence of ischemia on the imaging portion of the exam. This represents a normal SPECT stress test. Pulmonary Function Summary: 05/15/23 Indications: Asthma Interpretation Spirometry: There is no airflow limitation. There is a restrictive appearing spirometry. No bronchodilator response. Impression Restrictive spirometry. Recommend full PFT's with lung volumes for further investigation. Clinical Correlation therefore is recommended. Anesthesia Assessment and Plan Anesthesia History Personal History: No History of Anesthesia Complications Family History: No Family History of Anesthesia Complications Exercise Tolerance Exercise Tolerance: Metabolic Equivalents>4 Pertinent Negatives Pertinent Negatives: No Major Cardiovascular Symptoms or Complaints, No Major Pulmonary Symptoms or Complaints and No History of CVA/TIA Cardiac & Pulmonary Exam Cardiac Exam: Normal S1/S2 Heart Sounds Pulmonary Exam: Clear Bilateral Breath Sounds Cardiac and Pulmonary Comment:: pt reports history of reflux but no s/s this am and controlled with medication. pt reports chest pain with coughing Implantable Cardiac Device Does patient have a Pacemaker or an ICD?: No Airway Exam Known Difficult Airway: No Mallampati Class: 2 Mouth Opening: Normal (> 3cm) Thyromental Distance: Greater than 3 cm Neck Range of Motion: Full ROM Neck Circumference: Normal Teeth Condition: Edentulous ASA Classification ASA Score: ASA 2 Emergency Case?: No NPO Status NPO Status: NPO Clears >2 hours, Solids >8 hours Anesthesia Plan Resuscitation Status: Full Code Anesthesia Technique: General Anesthesia Airway Planned: Endotracheal Tube Monitors Used: Standard Monitors and SedLine
[2024-02-09] MEDS: Lidocaine 1% Pres-Free 30 ML VIAL (08:00)
--- NOTE | 2024-02-09 08:00 | PAPNONF_PTH ---
PATIENT: Cole Coles LOC: [facility] U#:[id number] AGE/SX: 48/M ROOM: RE02/09/[address]: Raven Tran MD : 1975 BED: DIS: 02/09/2024 SPEC #: [id number] RECD: 02/09/24 12:46 STATUS: GEM REQ #: [id number] CAMILO: 02/09/24 08:[address]: Raven Tran DEPT: [facility] Cytology RECD BY: Rose Ricci ENTERED: 02/09/24 12:47 SP TYPE: BJ BEAULIEU DR: Brian Longo MD Tissues: 1 - BODY FLUID CYTO(NOT S/U/N/EM)[facility] Procedures: BODY FLUID CYTO(NOT SPU/UR/NIP/ENDOM)[facility] SPECIAL STAIN 1 Comments: [id number] (TV = 10 ml, SENT FRESH) (REFRIGERATED)
--- NOTE | 2024-02-09 08:56 | W.ANESPOSTOP ---
Postoperative Evaluation Date, Time and Location Date Performed: 02/09/24 Time Performed: 08:56 Patient Location: PACU Vital Signs Most Recent Imported Vital Signs: Most Recent Vital Signs Temp Pulse Resp BP Pulse Ox 36.7 C 85 25 H 97/53 L 95 02/09/24 08:50 02/09/24 08:50 02/09/24 08:50 02/09/24 08:50 02/09/24 08:50 Pain Score Most Recent Pain Score: Most Recent Pain Score Pain Level 0 02/09/24 08:50 Assessment Mental Status: Awake (Alert & Oriented to Patient Baseline) Airway and Respiratory Function: Patent airway with normal (patient baseline) respiratory exam Cardiovascular Function: Hemodynamically Stable Hydration Status: Adequately Hydrated Nausea & Vomiting: No Nausea or Vomiting Pain: Pt. Denies Any Pain Peripheral Nerve Block: Patient did not receive a nerve block
--- NOTE | 2024-02-09 08:58 | W.PM.OP ---
Date of service: 02/09/24 Time of Service: 07:45 Operative Note Operative Note Refer to Anesthesia Record Procedure Description: Bronchoscopy Indication:Abnormal chest CT Procedure performed: Flexible bronchoscopy with BAL Sedation plan: General anesthesia Informed consent was obtained after the risks and benefits or the procedure were discussed. Patient was sedated and intubated by anesthesia. A proper and complete OR compliant time out was performed. The therapeutic 6.2mm Olympus bronchoscope was inserted through the endotracheal tube. The bronchoscope was inserted into the airways, were 3cc in total of 1% topical lidocaine was used the anesthetize the airways. The trachea was midline and without lesion or injury. The mucosa appeared normal and there were no signs of tracheomalacia. The huyen was sharp. All bronchial subsegments were visualized within each lobe and showed trace to minimal white and easy to suction secretions. A bronchoalveolar lavage was performed in the RLL. A total of 120cc of saline was administered with a return of 10cc due to collapsible airways. The fluid was slightly cloudy in appearance. The bronchoscope was then removed and the case terminated. The patient was taken to PACU in stable condition. Samples collected:RLL BAL, bronchial washings Testing ordered: cell count, bacterial, fungal, AFB cultures, cytopathology with filver staining Complications:None Raven Tran MD Pulmonary & Critical Care Medicine
[2024-02-09] MEDS: ePHEDrine 50 MG/ML VIAL 25 MG IM (09:54)
[2024-02-09 18:35] LABS: HIV-1/2 Ag & Ab Screen Negative (Negative)
[2024-02-10 08:31] LABS: IgA 379 mg/dL (85-499); IgG 1238 mg/dL (610-1616); IgM 180 mg/dL (35-242)
[2024-02-10 09:04] LABS: IgE 22 IU/mL (<158)
[2024-02-10 16:41] LABS: Immunoglobulin Subclass IgG4 32.3 mg/dL
[2024-02-11 10:26] LABS: Mono/Macrophage Fluid Relative 2 %; Neutrophils Fluid Relative 88 %
[2024-02-11 10:27] LABS: Other Cells Fluid Relative 10 %
[2024-03-29 11:41] LABS: Fungal Culture & Smear See Comments
[2024-04-12 12:18] LABS: Fungal Culture & Smear See Comments
== END 2024-02-09 10:19 | disposition home or self-care (01) ==
PROVIDERS: PCP Family Medicine; Visit Provider Student in an Organized Health Care Education/Training Program
PROC: 0BJ08ZZ Inspection of Tracheobronchial Tree, Via Natural or Artificial Opening Endoscopic (ICD-10-PCS; CPT 31622; principal; 2024-02-09 07:30)
DX: J84.09 Other alveolar and parieto-alveolar conditions
CPT/HCPCS: 31622; 00123; 36415; 80162; 82784; 82787; 87070; 87102; 87107; 87205; 87206; 87389; 82785; 88104; 88312; J1100; J2001; J2250; J2405; J2704; J3010

== ENCOUNTER → 2024-02-22 08:20 | Outpatient (BNVA) | payer MEDICARE, SELFPAY | PROVIDERS: PCP Family Medicine; Referring Provider Family Medicine; Visit Provider Student in an Organized Health Care Education/Training Program | DX: L60.8 Other nail disorders (principal) | CPT/HCPCS: 99213 ==

== ENCOUNTER 2024-03-10 09:55 | Outpatient (CLI) | payer MEDICARE, SELFPAY ==
[2024-03-10 10:27] LABS: ALT 45 U/L (16-63); AST 26 U/L (15-37); Albumin 3.6 g/dL (3.4-5.0); Alkaline Phosphatase 128 U/L (46-116); Anion Gap 7.3 mmol/L (3-11); BUN 10 mg/dL (7-18); Bilirubin, Total 0.6 mg/dL (0.2-1.0); CO2 28.7 mmol/L (21.0-32.0); CREATININE 0.8 mg/dL (0.70-1.30); Calcium 8.8 mg/dL (8.5-10.1); Chloride 103 mmol/L (98-107); Estimated GFR 107.82 (mL/min/1.73m2); Glucose 102 mg/dL (74-106); Potassium 4.1 mmol/L (3.5-5.1); Sodium 139 mmol/L (136-145); Total Protein 7.3 g/dL (6.4-8.2)
== END 2024-03-10 09:56 | disposition home or self-care (01) ==
LOC: LBO 09:55
PROVIDERS: PCP Family Medicine; Visit Provider Student in an Organized Health Care Education/Training Program
DX: B40.0 Acute pulmonary blastomycosis (principal)
CPT/HCPCS: 36415; 80053; 80299

== ENCOUNTER → 2024-03-21 11:03 | Outpatient (BNVA) | payer MEDICARE, SELFPAY | PROVIDERS: PCP Family Medicine; Referring Provider Family Medicine; Visit Provider Physician Assistant Surgical | DX: R91.8 Other nonspecific abnormal finding of lung field (principal); Z72.0 Tobacco use; J98.4 Other disorders of lung | CPT/HCPCS: 99214 ==

== ENCOUNTER → 2024-04-01 01:17 | Outpatient (CLI) | payer MEDICARE, SELFPAY ==
--- NOTE | 2024-04-01 07:00 | DI.CT_ITS ---
Exam(s) CT CHEST WO EXAM: CT CHEST WO CLINICAL HISTORY: F/U LUNG INFILTRATE,PULMONARY BLASTOMYCOSIS,CAVITARY LESION LUNG,. TECHNIQUE: Multi planar reconstructions were performed. CONTRAST MATERIAL: None COMPARISON: CT CT ABDOMEN PELVIS W from 05/27/[address] ABDOMEN PELVIS W from 09/14/[address] ABDOMEN PELVIS W from 03/13/[address] CHEST W from 01/06/2024 CR XR CHEST 2V PA LATERAL from 01/26/2024 FINDINGS: CHEST: LUNGS: The previously described large infiltrate in the right lower lobe is again noted, again noted to contain air bronchograms. It is presently non cavitated and not associated with a pleural effusio n. There no other new areas of infiltrate in the right lung. Opposite-left lung remains clear with the exception of a pleural based noncalcified 5 mm nodule in th e lateral basal segment of the left lower lobe which is unchanged from 01/06/2024 and also unchanged from the uppermost images of a abdominal CT scan 03/13/[address] scan of May 2022 (dom ost 2 years). MEDIASTINUM: There is no obvious new hilar nor mediastinal adenopathy. Visualized thyroid unremarkabl e.No obvious axillary adenopathy CARDIAC: Heart size is normal. There is no pericardial effusion.Caliber of the thoracic aorta is wit hin normal limits. VISUALIZED UPPER ABDOMEN:Gallbladder surgically absent. No adrenal masses. No splenomegaly. No obv ious lesions in the partially visualized liver OSSEOUS: No significant osseous lesions.. IMPRESSION: 1. Compared to the prior CT scan of 01/06/2024 the size of the large right lower lobe infiltrate has slightly decreased and presently shows no signs of cavitation nor associated pleural effusion. No pr ominent lymphadenopathy evident. 2. Stable appearing pleural based 5 millimeter nodule in the opposite lung in the left lower lobe whi ch is unchanged since at least May 2022 (uppermost images of abdominal CT scan at that time) and t herefore most probably benign. RADIATION DOSE DELIVERED: Total DLP DATA REPOSITORY: All CT scans at this facility are submitted to the National Radiology Data Registry (NRDR) Dose Index Registry (DIR) with the [employer] (A[employer]). RADIATION OPTIMIZATION: All CT scans at this facility use at least one of these dose optimization te chniques: automated exposure control; mA and/or kV adjustment per patient size (includes targeted exa ms where dose is matched to clinical indication); or iterative reconstruction.
== END ==
LOC: DI 01:18
PROVIDERS: PCP Family Medicine; Visit Provider Physician Assistant Surgical
DX: J98.4 Other disorders of lung; R91.8 Other nonspecific abnormal finding of lung field
CPT/HCPCS: 71250

== ENCOUNTER → 2024-05-23 10:34 | Outpatient (BNVA) | payer MEDICARE, SELFPAY | PROVIDERS: PCP Family Medicine; Referring Provider Family Medicine; Visit Provider Physician Assistant Surgical | DX: R91.8 Other nonspecific abnormal finding of lung field (principal); J98.4 Other disorders of lung; Z72.0 Tobacco use | CPT/HCPCS: 99214 ==

== ENCOUNTER 2024-05-31 14:20 | Emergency (ER) | payer MEDICARE, SELFPAY ==
--- NOTE | 2024-05-31 14:15 | DI.US_ITS ---
Exam(s) US SCROTUM EXAM: US SCROTUM CLINICAL HISTORY: Right testicular pain TECHNIQUE: Ultrasound of the testes performed using grayscale, color, and Doppler imaging. COMPARISON: US US SCROTUM from 03/13/2023 FINDINGS: RIGHT HEMISCROTUM: Again noted is a small right hydrocele. There is a right inguinal hernia which extends down the lesley th of the inguinal canal to the level of the epididymis. The right testicle exhibits normal size and echo architecture with no evidence of intratesticular mas s. Vascular flow was demonstrated within the right testicle, including arterial waveforms. The epididymis appears unremarkable. There are no epididymal head cysts. There is no ipsilateral hydrocele nor varicocele. LEFT HEMISCROTUM: Again noted is a small left hydrocele. There is no evidence of obvious hernia on the left side. The left testicle exhibits normal size and echo architecture with no evidence of intratesticular mass . Vascular flow is demonstrated within the left testicle, including arterial waveforms. The epididymis appears unremarkable. There are no epididymal head cysts. There is no ipsilateral hydrocele or varicocele. IMPRESSION: 1. No evidence of testicular mass nor testicular torsion. 2. Small bilateral hydroceles again evident, as were evident on prior ultrasound examination February 2023 . 3. On the present study there is a prominent right inguinal hernia. The contents of this hernia sac extend down to the scrotal level. DATA REPOSITORY:
[2024-05-31 14:26] VITALS: BP 128/79; PULSE 94; RESP 18; TEMP 36.9; O2SAT 96
[2024-05-31 15:49] LABS: Bilirubin Negative (Negative); Blood Negative (Negative); Clarity Clear (Clear); Glucose Negative (Negative); Ketones Negative (Negative); Leukocyte Esterase Negative (Negative); Nitrite Negative (Negative); Specific Gravity 1.025 (1.005-1.025); Urobilinogen 0.2 mg/dL (Up to 0.2); pH 6.5 (5-8)
--- NOTE | 2024-05-31 16:20 | W.ED.GENAD ---
Discharge Plan Disposition Patient Disposition: Home Discharge Details Clinical Impression: Right testicular pain, Bilateral hydrocele Primary Care Provider: Brian Longo ED Provider: Ren Cannon Home Meds and New Rx's Prescriptions: Continued albuterol sulfate [ProAir HFA] 90 mcg/actuation HFA aerosol inhaler 2 puff Inhalation Q6H PRN PRN (Reason: bronchospasm) Qty: 1 3RF atorvastatin [Lipitor] 40 mg tablet 40 mg PO DAILY Qty: 90 3RF ezetimibe [Zetia] 10 mg tablet 10 mg PO DAILY Qty: 90 3RF pantoprazole 40 mg tablet,delayed release (DR/EC) 40 mg PO BID Qty: 180 3RF Trulance 3 mg tablet 3 mg PO DAILY Qty: 90 0RF sertraline 100 mg tablet 200 mg PO DAILY Qty: 180 3RF Rx Instructions: dose increase 04/19/21 dose increase 09/17/21 Linzess 72 mcg capsule 72 mcg PO QAM PRN (Reason: diarrhea) Qty: 90 3RF (DME) nebulizer and compressor [Comp-Air Elite Comp Neb System] 1 EACH device 1 ea Miscellaneous q 4 h prn Qty: 1 itraconazole 100 mg capsule 200 mg PO DAILY Qty: 60 4RF Patient Comments: 02/09/24: pt reports has not started taking this, waiting for insurance clearance. FS Rx Instructions: Take 2 tabs three times a day for three days, then take one tab a day Stiolto Respimat 2.5-2.5 mcg/actuation mist 2 puff inhalation DAILY Qty: 4 5RF Patient Comments: 02/09/24: pt reports has not started taking this, waiting for insurance clearance. FS budesonide-formoterol [Symbicort] 80-4.5 mcg/actuation HFA aerosol inhaler 1 puff INHALATION Patient Comments: INHALE ONE PUFF BY MOUTH TWICE A DAY acetaminophen 500 mg tablet 500 mg PO Q6H PRN (Reason: pain) Qty: 60 2RF Discharge Instructions Additional Instructions: You were seen in the emergency department for your testicle pain. Your ultrasound showed no sign of any twisting of the testicle. As we discussed if develop sudden onset vomiting nausea or any fevers please return to the emergency department. You are also found to have a right inguinal hernia which is when a part of your bowel extends into your scrotum. As we discussed if you develop vomiting or abdominal pain please return immediately to the emergency department. A referral has been placed to the urology department. Please follow-up later this week with your primary care provider. For your pain please take medications as follows: 1. Take acetaminophen (Tylenol), 1,000 mg (two 500 mg tabs) every 6 hours [2. Take ibuprofen (Advil), 400 mg every 6 hours.] Referrals: Jay Centeno MD [ [facility] STAFF PHYSICIAN] - 1 week Discharge Data Discharge Date/Time-TO BE ENTERED AT DEPARTURE: 05/31/24 16:32 HPI General Date/Time Provider Initiated Documentation: 05/31/24 14:29. HPI Narrative: MDM This is an overall well-appearing normothermic and not tachycardic 48-year-old male with right testicular pain but no signs of testicular torsion on ultrasound for which patient will receive empiric trial of discharge with expectant outpatient management. No signs of Dawn's gangrene. No dysuria nor frequency so my suspicion is low for urinary tract infection and patient had nitrite and leuk esterase negative UTI. He did have a soft reducible right inguinal hernia but there is no signs of incarceration or strangulation. Patient is circumcised and has no signs of paraphimosis. Has not been nauseous nor vomiting to suggest increased risk for small bowel obstructions so I did not feel that he required a CT scan of his abdomen. No fluctuance to suggest abscess. No erythema to suggest cellulitis. Patient does have a pearly papule that appears chronic on his right hemiscrotum. No rash to his testicle to suggest zoster. Not sexually active so my suspicion is low for sexually transmitted infection so I did not send a GC nor chlamydia probe. No trauma to testicles I am not suspicious for testicular fracture. Patient and I discussed return indications including any nausea vomiting worsening pain or any color changes. He understood his return indications and was discharged with an empiric trial of expectant outpatient management. 4:30 PM I have asked health coordinator Rachael and have the patient seen next week by urology. HPI This is a 48-year-old male arrived to the emergency department via private vehicle in setting of right testicular pain. Patient notes that he has had chronic right testicular pain for a number of years. The pain is worsened over the past 5 days. He was seen recently require medical advice to come to the emergency department for an ultrasound. He denies dysuria and fevers. He has had some urinary urgency. He is not sexually active. He is circumcised. He denies chest pain abdominal pain nausea vomiting and diarrhea. Exam General: Well-appearing in no acute distress speaking in complete sentences. Head: Normocephalic, atraumatic. Eye: Extraocular eye movements intact. No conjunctival injection. No scleral icterus. Ear, nose, mouth, throat: Grossly normal inspection. Normal voice, handling secretions normally. Neck: Trachea midline. Cardiovascular: Well-perfused distal extremities. Respiratory: Nonlabored respiration. Gastrointestinal: Nondistended abdomen. Soft nontender. Soft reducible right inguinal hernia. No signs of strangulation. No signs of incarceration. : Circumcised penis. No significant tenderness to scrotum. Bilateral testes descended. On the right testicle patient does have a single pearly papule. No significant erythema. No significant fluctuance. Musculoskeletal: No edema. Moving all 4 extremities spontaneously. Skin: Normal for age and race, grossly normal temperature and turgor. No acute rash. Neurologic: Alert and appropriate, no apparent acute deficits. Psychiatric: Mood and manner are appropriate. Grooming and personal hygiene are appropriate. Related Data Home Medications ?Medication ?Instructions ?Recorded ?Confirmed nebulizer and compressor (Comp-Air #1 ea 07/16/16 05/24/24 Elite Comp Neb System device) acetaminophen 500 mg tablet 500 mg PO Q6H PRN pain #60 tabs 06/23/23 05/31/24 albuterol sulfate 90 mcg/actuation 2 puff inhalation Q6H PRN PRN 01/19/24 05/31/24 aerosol inhaler (ProAir HFA) bronchospasm #1 inh atorvastatin 40 mg tablet (Lipitor) 40 mg PO DAILY #90 tabs 01/19/24 05/31/24 ezetimibe 10 mg tablet (Zetia) 10 mg PO DAILY #90 tab-caps 01/19/24 05/31/24 pantoprazole 40 mg tablet,delayed 40 mg PO BID #180 tab-caps 01/19/24 05/31/24 release plecanatide 3 mg tablet (Trulance) 3 mg PO DAILY constipation #90 tabs 01/19/24 05/31/24 sertraline 100 mg tablet 200 mg (2 x 100 mg) PO DAILY #180 01/19/24 05/31/24 tabs itraconazole 100 mg capsule 200 mg (2 x 100 mg) PO DAILY #60 02/08/24 05/31/24 caps tiotropium 2.5 mcg-olodaterol 2.5 2 puff inhalation DAILY #4 grams 02/08/24 05/31/24 mcg/actuation mist for inhalation (Stiolto Respimat) budesonide-formoterol HFA 80 1 puff inhalation 02/09/24 05/24/24 mcg-4.5 mcg/actuation aerosol inhaler (Symbicort) linaclotide 72 mcg capsule 72 mcg PO QAM PRN diarrhea #90 caps 05/24/24 05/31/24 (Linzess) Previous Rx's ?Medication ?Instructions ?Recorded acetaminophen 500 mg tablet 500 mg PO Q6H PRN pain #60 tabs 06/23/23 albuterol sulfate 90 mcg/actuation 2 puff inhalation Q6H PRN PRN 01/19/24 aerosol inhaler (ProAir HFA) bronchospasm #1 inh atorvastatin 40 mg tablet (Lipitor) 40 mg PO DAILY #90 tabs 01/19/24 ezetimibe 10 mg tablet (Zetia) 10 mg PO DAILY #90 tab-caps 01/19/24 pantoprazole 40 mg tablet,delayed 40 mg PO BID #180 tab-caps 01/19/24 release plecanatide 3 mg tablet (Trulance) 3 mg PO DAILY constipation #90 tabs 01/19/24 sertraline 100 mg tablet 200 mg (2 x 100 mg) PO DAILY #180 01/19/24 tabs itraconazole 100 mg capsule 200 mg (2 x 100 mg) PO DAILY #60 02/08/24 caps tiotropium 2.5 mcg-olodaterol 2.5 2 puff inhalation DAILY #4 grams 02/08/24 mcg/actuation mist for inhalation (Stiolto Respimat) linaclotide 72 mcg capsule 72 mcg PO QAM PRN diarrhea #90 caps 05/24/24 (Linzess) Allergies Allergy/AdvReac Type Severity Reaction Status Date / Time Fish Containing Products Allergy Intermediate hives Verified 05/31/24 14:29 aspirin AdvReac Intermediate epistaxis Verified 05/31/24 14:29 seafood Allergy Intermediate Hives Uncoded 05/31/24 14:29 hydrocodone-homatropine AdvReac Intermediate GI UPSET Uncoded 05/31/24 14:29 General Stated Complaint: Urinary DONG: 4 Course Vital Signs Vital signs: Vital Signs Temperature 36.9 C 05/31/24 14:26 Pulse 94 H 05/31/24 14:26 Respiratory Rate 18 05/31/24 14:26 Blood Pressure 128/79 05/31/24 14:26 Pulse Oximetry 96 05/31/24 14:26 Temperature 36.9 C 05/31/24 14:26 Pulse 94 H 05/31/24 14:26 Respiratory Rate 18 05/31/24 14:26 Respiratory Effort Normal, Non-Labored 05/31/24 16:08 Blood Pressure 128/79 05/31/24 14:26 Blood Pressure Position Supine 05/31/24 14:26 Pulse Oximetry 96 05/31/24 14:26 Oxygen Delivery Method Room Air 05/31/24 14:26 Oxygen Flow Rate 0 05/31/24 14:26 Lab/Test Results Lab/Test Results: Laboratory Tests Range/Units 05/31/24 15:40 Urine Color (Yellow) Yellow Urine Clarity (Clear) Clear Urine pH (5-8) 6.5 Ur Specific Gray (1.005-1.025) 1.025 Urine Protein (Neg-Trace) mg/dL Negative Urine Ketones (Negative) mg/dL Negative Urine Blood (Negative) Negative Urine Nitrite (Negative) Negative Urine Bilirubin (Negative) Negative Urine Urobilinogen (Up to 0.2) mg/dL 0.2 Ur Leukocyte Esterase (Negative) Negative Urine Glucose (Negative) mg/dL Negative Medical Decision Making Quality:SDOH Health Related Social Needs: No Data to Display PFSH All Active Problems (Updated 05/31/24 @ 16:25 by Ren Cannon MD) Bilateral hydrocele (Acute) Right testicular pain (Acute) Dizziness (Acute) Pulmonary blastomycosis (Acute) Cavitary lesion of lung (Acute) Lung infiltrate on CT (Acute) Chronic leg pain (Acute) Productive cough (Acute) Infiltrate noted on imaging study (Acute) Imbalance (Acute) Conductive hearing loss, bilateral (Acute) Bilateral acute serous otitis media (Acute) Ankle pain (Acute) right, chronic Chest pain at rest (Acute) RADIATION DOWN HIS ARMS Cyst of skin (Acute) TOP OF LEFT FOOT-PAINFUL Tobacco use (Chronic) Viral warts (Acute) Burning sensation of feet (Acute) Acquired deformity of nail (Acute) s/p nail excision and matrix ablation 11/10/19 Scrotal lesion (Acute) Sebaceous cyst (Acute) Neck pain (Acute) Below-knee amputation of right lower extremity (Acute) Acute cholecystitis (Acute) Wart of hand (Acute) Loss of taste (Acute) Skin ulcer (Acute) S/P BKA (below knee amputation) (Acute) Sensorineural hearing loss (SNHL) of both ears (Acute) Chest pain (Acute) Abnormal flushing and sweating (Acute) Neck pain on left side (Acute) Continuous tobacco abuse (Chronic) Acute pancreatitis (Acute) COVID-19 (Acute) Chronic pancreatitis (Acute) [place] [facility] [place]iabetes (Acute) Erectile dysfunction (Acute) Finger pain (Acute) Cold intolerance (Acute) Medical History Acute on chronic pancreatitis Constipation due to opioid therapy Gastritis Insomnia Hyperglycemia Lipoma Sensorineural hearing loss of both ears Partial Achilles tendon tear left Ganglion cyst Neuropathy Anxiety Lung nodules Mood disorder deteriorated Migraine Hypoglycemia Depression with anxiety Callous ulcer REFERRED TO DERM 12/22/13 Asthma 09/15/12 Arthritis FOOT/ANKLE 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 Snowblowing injury causing partial amputation Surgical revision of amputation DOS: 08/31/18 Partial traumatic transphalangeal amputation of right ring finger Snowblowing injury causing partial amputation Surgical revision of amputation DOS: 08/31/18 tobacco abuse GERD (gastroesophageal reflux disease) Hyperlipidemia Low back pain associated with a spinal disorder other than radiculopathy or spinal stenosis Surgical History Nail deformity S/P Excision: 02/25/2023 Hx of right B[place] [facility] [place] Postsurgical arthrodesis status (08/22/20) rt ankle Hx of arthroscopic knee surgery Tibial fracture S/P tibial nail fixation. 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 Brother Essential hypertension Grandfather Diabetes Alcohol abuse Grandfather Brain tumor Stroke Grandmother Diabetes Grandmother Heart disease Neoplasm Cervical cancer Stroke Family History Blood disorder Neoplasm Stomach,melanoma Social History Smoking/Tobacco Use Status: Current every day Tobacco Type: cigarettes Tobacco: How many years used: 30 Second Hand Exposure: Yes Counseling given: provider counseling Smoking risk assessment performed?: Yes Alcohol Intake: former Drug use: Never Substance use type: does not use Household members: spouse Housing: apartment Number of Children: 4 Communication Needs: Hard of Hearing Do you need help understanding health information?: Rarely Pets and animals: Yes Pets and animals: cat(s) and dog(s) Sexually active: No Do you think of yourself as: straight/heterosexual Current gender identity: female What is your relationship status?: How often do you talk on the phone with friends or family?: three or more times per week Do you belong to any clubs or organized social groups?: no Panel score (0-1 are the most socially isolated patients): 2 What type of physical activity do you participate in: walking, aerobic and swimming Duration: < 15 minutes/day Mariajose/Adventist: No preference Special mariajose needs: No Seatbelt use: always Helmet use: No 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
[2024-05-31 16:32] VITALS: BP 109/47; PULSE 82; RESP 15; O2SAT 96
--- NOTE | 2024-05-31 16:43 | NUR.NOTE ---
referral sent to urology for a follow up in one week for a inguinal hernia. Nursing Note:
== END 2024-05-31 16:32 | disposition home or self-care (01) ==
PROVIDERS: Emergency Provider Emergency Medicine; PCP Family Medicine
DX: N50.811 Right testicular pain (principal); N43.3 Hydrocele, unspecified; K40.90 Unilateral inguinal hernia, without obstruction or gangrene, not specified as recurrent
CPT/HCPCS: 99284; 76870; 81003; 99283

== ENCOUNTER → 2024-07-05 13:10 | Outpatient (BNVA) | payer MEDICARE, SELFPAY | PROVIDERS: PCP Family Medicine; Referring Provider Family Medicine; Visit Provider Surgery | DX: K40.90 Unilateral inguinal hernia, without obstruction or gangrene, not specified as recurrent (principal) | CPT/HCPCS: 99213 ==

== ENCOUNTER 2024-07-25 01:06 | Outpatient (CLI) | payer MEDICARE, SELFPAY ==
--- NOTE | 2024-07-25 16:44 | DI.CT_ITS ---
Exam(s) CT CHEST WO EXAM: CT CHEST WO CLINICAL HISTORY: B40.2 f/u Pulmonary blastomycosis,unspecified TECHNIQUE: Imaging Protocol: Axial computed tomography images with coronal and sagittal reformatted images were created and reviewed CONTRAST MATERIAL: Intravenous: Omnipaque 350 Contrast volume:structured data ml. COMPARISON: CT CT CHEST WO from 04/01/2024 FINDINGS: Pulmonary parenchyma: Significant improvement in right lower lobe infiltrate with air bronchograms. No new infiltrates. No dominant measurable mass. Stable pleural based nodule again noted in the late ral left lower lobe. Other scattered tiny nodules noted bilaterally which appear stable. Tracheobronchial tree: No bronchiectasis or mucous plugging. Mediastinum and Mary: No dominant adenopathy or fluid collection. Pleura: No effusion. No pneumothorax. Heart: The heart is not dilated. No coronary artery calcifications are seen. Aorta: Thoracic aorta non-dilated. No visible atherosclerotic changes. Pulmonary arteries: No gross evidence of emboli. Upper abdomen: No acute findings. Bones: Degenerative changes in the spine. Soft tissues: Unremarkable. IMPRESSION: Significant interval improvement previously noted right lower lobe infiltrate. No new findings. RADIATION DOSE DELIVERED: Total DLP DATA REPOSITORY: All CT scans at this facility are submitted to the National Radiology Data Registry (NRDR) Dose Index Registry (DIR) with the [employer] (ACR). RADIATION OPTIMIZATION: All CT scans at this facility use at least one of these dose optimization te chniques: automated exposure control; mA and/or kV adjustment per patient size (includes targeted exa ms where dose is matched to clinical indication); or iterative reconstruction.
== END 2024-07-25 01:26 ==
PROVIDERS: PCP Family Medicine; Visit Provider Physician Assistant Surgical
DX: B40.2 Pulmonary blastomycosis, unspecified (principal)
CPT/HCPCS: 71250

== ENCOUNTER 2024-07-27 08:26 | Day surgery (SDC) | payer MEDICARE, SELFPAY ==
--- NOTE | 2024-07-26 16:34 | PDOC.DSDIS_ITS ---
Date of service: 07/27/24 Time of Service: 11:23 Discharge Plan Disposition Patient Disposition: Home Condition: Good Discharge Details Reason For Visit: Right inguinal hernia repair Attending Provider: Reilly Romero Primary Care Provider: Brian Longo Home Meds and New Rx's Prescriptions: New tramadol 50 mg tablet 50 mg PO Q8H PRNQty: 15 0RF Rx Instructions: Take 1 tablet by mouth up to every 8 hours if needed for more severe pain. Continued albuterol sulfate [ProAir HFA] 90 mcg/actuation HFA aerosol inhaler 2 puff Inhalation Q6H PRN PRN (Reason: bronchospasm) Qty: 1 3RF atorvastatin [Lipitor] 40 mg tablet 40 mg PO DAILY Qty: 90 3RF ezetimibe [Zetia] 10 mg tablet 10 mg PO DAILY Qty: 90 3RF pantoprazole 40 mg tablet,delayed release (DR/EC) 40 mg PO BID Qty: 180 3RF Trulance 3 mg tablet 3 mg PO DAILY Qty: 90 0RF sertraline 100 mg tablet 200 mg PO DAILY Qty: 180 3RF Rx Instructions: dose increase 04/19/21 dose increase 09/17/21 Linzess 72 mcg capsule 72 mcg PO QAM PRN (Reason: diarrhea) Qty: 90 3RF (DME) nebulizer and compressor [Comp-Air Elite Comp Neb System] 1 EACH device 1 ea Miscellaneous q 4 h prn Qty: 1 itraconazole 100 mg capsule 200 mg PO DAILY Qty: 60 4RF Patient Comments: 02/09/24: pt reports has not started taking this, waiting for insurance cleara nce. FS Rx Instructions: Take 2 tabs three times a day for three days, then take one tab a day acetaminophen 500 mg tablet 500 mg PO Q6H PRN (Reason: pain) Qty: 60 2RF Discharge Instructions Instructions: Groin Hernia Repair, Open Surgery, Varicocele Additional Instructions: Cole, it was great to see you today, and I hope you make a quick recovery after the operation. Everything went very smoothly. In addition to the inguinal hernia, there was some varicocele as well. This is dilation of the veins that drain the testicle. Kind of like varicose veins in the leg, except happening around the cord inside of the inguinal canal. I reduce the hernia back to its normal position, and I did excise the varicocele. I patched everything up with a mesh just like we talked about before surgery. Hopefully this will provide some relief to the symptoms that you have been experiencing. I provided a prescription for some pain medications if it is the case that Tylenol and ibuprofen are not enough. Expect to have some increasing pain over the next day as the nerve block wears off. Additionally, with removal of the varicocele, the right testicle may swell a bit. That is extremely normal. I would also expect to have some bruising over the incision as all of the soft tissues heal up. If you need anything, or have any questions at all, please do not hesitate to call, otherwise I look forward to seeing you at your follow-up visit 1. Resume all of your regular medications. 2. Use heating pads and ice packs as needed for pain. I typically alternate these every 15 minutes or so.. 3. Alternate [id number] Tylenol and ibuprofen every 6 hours for the first 2 days, then use as needed. Use the prescription for tramadol if needed for more severe pain.. 4. Leave bandage in place for 24 hours, then remove. 5. Shower with warm soapy water. Pat dry. Use a bandaid if needed to protect your clothing. 6. No soaking or tub baths until I see you in the office. 7. No heavy lifting until I see you in the office. 8. Call the office (or go directly to the emergency room after hours) if you notice any of the following: Develop chills (warm to touch), or if you have a thermometer and your temperature is above 101 Difficulty breathing or difficultly swallowing Persistent vomiting Any bleeding ? exceeding one tablespoon 9. Call your physician if the site where your intravenous was started becomes red, swollen, painful, and warm to touch. Referrals: Reilly Romero MD [ [facility] STAFF PHYSICIAN] - Activity:: No heavy lifting Remove Dressings/Wound Care:: 24 hours Shower/Bathe:: 24 hours Diet:: As Tolerated Discharge Orders Discharge Orders: Discharge Order (Routine); Ordered 07/26/24 Ordered By: Reilly Romero DS: Diagnosis Discharge Diagnosis (1) Inguinal hernia: Status: Acute Asessment and Plan: Routine postoperative follow-up
--- NOTE | 2024-07-26 16:36 | ROE_ITS ---
Date of service: 07/27/24 Time of Service: 11:28 Operative Note Operative Note DATE OF PROCEDURE: 07/27/24 PRE-OP DIAGNOSIS: Right inguinal hernia POST-OP DIAGNOSIS: other (Right inguinal hernia and right varicocele) PROCEDURE: Open right inguinal hernia repair with mesh and varicocelectomy SURGEON: Reilly Romero [employer] CONSULTANT: Mamie Saravia ANESTHESIA TYPE: Local By Surgeon and General LMA/ETT Refer to Anesthesia Record ESTIMATED BLOOD LOSS: 20 PATHOLOGY: none sent COMPLICATIONS: None Patient was transported to: PACU Patient's condition: stable Implants: Bard PerFix light large plug and patch Indications: Cole is a 49-year-old male with a symptomatic right inguinal hernia. Findings: Right inguinal hernia with varicocele Procedure Description: I began by confirming the correct site with the patient. Cole was assisted onto the OR table, and padded and supported appropriately. Next, general endotracheal anesthesia was induced. After that, with the assistance of real- time ultrasound guidance, the anesthesia service provided a right-sided nerve block. The surgical site was then prepped and draped in the usual fashion. I began by making an oblique incision over the right inguinal region. I dissected down through the skin to the deep fascia. Next, I incised the fascia along the length of the inguinal canal to the external ring. I then carefully identified the ilioinguinal nerve and sharply divided. Once this was complete, I bluntly dissected the shelving edge of the inguinal ligament down towards the pubic tubercle. Here, I encircled all cord structures with a Harford drain. Next, I began dissecting the specific cord structures. Great care was taken to spare the vas deferens and the blood supply to the testicle. Next, I isolated the hernia sac from the other inguinal structures. There is a prominent right sided varicocele. This was carefully dissected, and divided distally. It was reduced back into the peritoneal space along with the hernia sac. I then used a large Bard PerFix light mesh plug to obliterate the defect at the internal ring. I fixed in place with interrupted Prolene stitches. Next, I buttressed the posterior floor of the inguinal canal with a large mesh patch. I started by fixing it to the pubic tubercle. Next, I used Prolene sutures to affix it to the shelving edge of the inguinal ligament and the conjoined tendon. Laterally I tacked it to the internal oblique fascia and reconstructed an internal ring without any strain on the cord structures. Once this was complete, I irrigated the surgical field. It appeared hemostatic. I then closed the anterior portion of the fascia to reconstruct the front wall of the inguinal canal. I did this with interrupted Vicryl stitches. Once again, I irrigated the surgical field and inspected for hemostasis. Finally, I approximated the superficial fascia and the deep layers of the skin with absorbable suture. Skin was closed with running subcuticular stitches. Bandages were applied, the patient was awakened and transferred to the recovery unit.
[2024-07-27] VITALS (32 sets, daily range): BP systolic 94–133; BP diastolic 40–75; PULSE 49–69; RESP 0–23; TEMP 36.2–36.6; O2SAT 89–96; BMI 22.6
[2024-07-27] MEDS: Gabapentin 300 MG CAP 600 MG PO (09:02)
[2024-07-27] MEDS: Acetaminophen 500 MG TAB 1000 MG PO (09:03)
--- NOTE | 2024-07-27 09:06 | ANES.PREOP_ITS ---
General Info Date of Service Date Performed: 07/27/24 Height: 5 ft 11 in Weight: 73.539 kg Body Mass Index (BMI): 22.6 Surgical Procedure: Operation Date: 07/27/24 09:10 Proposed Procedure Side Surgeon p Herniorrhaphy Inguinal w/Mesh Right Reilly Romero MD Meds Allergies and Home Medications Allergies Allergy/AdvReac Type Severity Reaction Status Date / Time Fish Containing Products Allergy Intermediate hives Verified 07/27/24 08:43 aspirin AdvReac Intermediate epistaxis Verified 07/27/24 08:43 seafood Allergy Intermediate Hives Uncoded 07/27/24 08:43 hydrocodone-homatropine AdvReac Intermediate GI UPSET Uncoded 07/05/24 13:19 Home Medication ?Medication ?Instructions ?Recorded nebulizer and compressor (Comp-Air #1 ea 07/16/16 Elite Comp Neb System device) acetaminophen 500 mg tablet 500 mg PO Q6H PRN pain #60 tabs 06/23/23 albuterol sulfate 90 mcg/actuation 2 puff inhalation Q6H PRN PRN 01/19/24 aerosol inhaler (ProAir HFA) bronchospasm #1 inh atorvastatin 40 mg tablet (Lipitor) 40 mg PO DAILY #90 tabs 01/19/24 ezetimibe 10 mg tablet (Zetia) 10 mg PO DAILY #90 tab-caps 01/19/24 pantoprazole 40 mg tablet,delayed 40 mg PO BID #180 tab-caps 01/19/24 release plecanatide 3 mg tablet (Trulance) 3 mg PO DAILY constipation #90 tabs 01/19/24 sertraline 100 mg tablet 200 mg (2 x 100 mg) PO DAILY #180 01/19/24 tabs itraconazole 100 mg capsule 200 mg (2 x 100 mg) PO DAILY #60 02/08/24 caps linaclotide 72 mcg capsule 72 mcg PO QAM PRN diarrhea #90 caps 05/24/24 (Linzess) Current Visit Medications: Current Medications Generic Name Dose Route Start Last Admin Trade Name Freq PRN Reason Stop Dose Admin Acetaminophen 1,000 mg 07/27/24 06:00 07/27/24 09:03 Acetaminophen 500 Mg Tab PO 07/27/24 23:59 1,000 mg PREOP MIRANDA Administration Hydrocodone Bitart/Acetaminophen 0 tab 07/26/24 16:38 Hydrocodone 5/Acetaminophen 325 Tab PO 08/25/24 16:37 Q3H PRN PRN Pain Gabapentin 600 mg 07/27/24 06:00 07/27/24 09:02 Gabapentin 300 Mg Cap PO 07/27/24 23:59 600 mg PREOP MIRANDA Administration Ringer's Solution 1,000 mls @ 80 mls/hr 07/27/24 06:00 IV 07/27/24 23:59 INFUSION MIRANDA Cefazolin Sodium/Dextrose 2 gm in 50 mls @ 100 mls/hr 07/27/24 06:00 Ancef Duplex IVPB 07/27/24 23:59 PREOP MIRANDA IV Miscellaneous Supplies 1 each 07/27/24 06:00 Iv Access IV 07/27/24 23:59 DIRECTED MIRANDA Sodium Chloride 0 ml 07/27/24 06:00 Normal Saline Flush 10 Ml Syr IV 07/27/24 23:59 PRN PRN Sodium Chloride 0 ml 07/27/24 06:00 Normal Saline 10 Ml Vial IJ 07/27/24 23:59 DIRECTED PRN Sterile Water 0 ml 07/27/24 06:00 Water,Injection,Sterile 10 Ml Vial IJ 07/27/24 23:59 DIRECTED PRN Tramadol HCl 100 mg 07/26/24 16:38 Tramadol 50 Mg Tab PO 08/25/24 16:37 Q6H PRN PRN Pain PFSH Active Problems Active Problems: Problem Status Onset Code Inguinal hernia Acute K40.90 Dizziness Acute R42 Pulmonary blastomycosis Acute B40.2 Cavitary lesion of lung Acute J98.[address] Acute R91.8 Chronic leg pain Acute M79.606, G89.29 Productive cough Acute R05.8 Infiltrate noted on imaging study Acute R93.89 Imbalance Acute R26.89 Conductive hearing loss, bilateral Acute H90.0 Bilateral acute serous otitis media Acute H65.03 Ankle pain Acute M25.579 Chest pain at rest Acute R07.9 Cyst of skin Acute L72.9 Tobacco use Chronic Z72.0 Viral warts Acute B07.9 Burning sensation of feet Acute R20.8 Acquired deformity of nail Acute L60.8 Scrotal lesion Acute N50.9 Sebaceous cyst Acute L72.3 Neck pain Acute M54.2 Below-knee amputation of right lower extremity Acute S88.111A Acute cholecystitis Acute K81.0 Wart of hand Acute B07.9 Loss of taste Acute R43.2 Skin ulcer Acute L98.499 S/P BKA (below knee amputation) Acute Z89.519 Sensorineural hearing loss (SNHL) of both ears Acute H90.3 Chest pain Acute R07.9 Abnormal flushing and sweating Acute R23.2, R61 Neck pain on left side Acute M54.2 Continuous tobacco abuse Chronic Z72.0 Acute pancreatitis Acute K85.90 COVID-19 Acute U07.1 Chronic pancreatitis Acute K86.1 Prediabetes Acute R73.03 Erectile dysfunction Acute N52.9 Finger pain Acute M79.646 Cold intolerance Acute R68.89 Medical History Medical History Acute on chronic pancreatitis Constipation due to opioid therapy Gastritis Insomnia Hyperglycemia Lipoma Sensorineural hearing loss of both ears Partial Achilles tendon tear left Ganglion cyst Neuropathy Anxiety Lung nodules Mood disorder deteriorated Migraine Hypoglycemia Depression with anxiety Callous ulcer REFERRED TO DERM 12/22/13 Asthma 09/15/12 Arthritis FOOT/ANKLE 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 Snowblowing injury causing partial amputation Surgical revision of amputation DOS: 08/31/18 Partial traumatic transphalangeal amputation of right ring finger Snowblowing injury causing partial amputation Surgical revision of amputation DOS: 08/31/18 tobacco abuse GERD (gastroesophageal reflux disease) Hyperlipidemia Low back pain associated with a spinal disorder other than radiculopathy or spinal stenosis Surgical History Surgical History Nail deformity S/P Excision: 02/25/2023 Hx of right BKA 11/21/21 [facility] [place] ([place]) Postsurgical arthrodesis status (08/22/20) rt ankle Hx of arthroscopic knee surgery Tibial fracture S/P tibial nail fixation. 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 History of excision of mass History of neck surgery History of spinal surgery Status post carpal tunnel release Tobacco Smoking/Tobacco Use Status: Current every day Tobacco Type: cigarettes Second hand exposure: Yes Counseling given: provider counseling Alcohol Alcohol Intake: former Substance Use Substance use: Never Substance use type: does not use Vital Signs and Lab Results Vital Signs Most Recent Vital Signs in EMR: Most Recent Vital Signs Temp Pulse Resp BP Pulse Ox 36.6 C 60 18 110/54 L 96 07/27/24 08:48 07/27/24 08:48 07/27/24 08:48 07/27/24 08:48 07/27/24 08:48 Lab Results Blood Type / Crossmatch: No Data to Display Complete Blood Count: No Data to Display Complete Metabolic Panel: No Data to Display Liver Function Panel: No Data to Display Coagulation Panel: No Data to Display Cardiac Panel: No Data to Display Arterial Blood Gas: No Data to Display Venous Blood Gas: No Data to Display Pancreas Panel: No Data to Display Thyroid Panel: No Data to Display Infectious Disease: No Data to Display Blood Cultures: No Data to Display Toxicology Panel: No Data to Display Imaging and Studies Imaging and Studies Study information below may be from another EMR and interpreted by another provider. Please see original notes in EMR for more complete details. EKG Summary: Conclusion Sinus rhythm...normal P axis, V-rate 60- 99 Stress Test Summary: MPI Conclusion The ejection fraction was 41% with stress. There were no wall motion abnormalities. There is no evidence of ischemia on the imaging portion of the exam. This represents a normal SPECT stress test. Pulmonary Function Summary: 05/15/23 Indications: Asthma Interpretation Spirometry: There is no airflow limitation. There is a restrictive appearing spirometry. No bronchodilator response. Impression Restrictive spirometry. Recommend full PFT's with lung volumes for further investigation. Clinical Correlation therefore is recommended. Anesthesia Assessment and Plan Anesthesia History Personal History: No History of Anesthesia Complications Family History: No Family History of Anesthesia Complications Exercise Tolerance Exercise Tolerance: Metabolic Equivalents>4 Pertinent Negatives Pertinent Negatives: No Major Cardiovascular Symptoms or Complaints, No Major Pulmonary Symptoms or Complaints and No History of CVA/TIA Cardiac & Pulmonary Exam Cardiac Exam: Normal S1/S2 Heart Sounds Pulmonary Exam: Clear Bilateral Breath Sounds Cardiac and Pulmonary Comment:: pt reports history of reflux but no s/s this am and controlled with medication. pt reports chest pain with coughing. Also reports recent crushing SS chest pain event in April. reported improvewment with NTG. Troponins remained negative. No repeat of the event Implantable Cardiac Device Does patient have a Pacemaker or an ICD?: No Airway Exam Known Difficult Airway: No Mallampati Class: 2 Mouth Opening: Normal (> 3cm) Thyromental Distance: Greater than 3 cm Neck Range of Motion: Full ROM Neck Circumference: Normal Teeth Condition: Edentulous Airway Comments: Tongue ring removed ASA Classification ASA Score: ASA 3 Emergency Case?: No NPO Status NPO Status: NPO Clears >2 hours, Solids >8 hours Anesthesia Plan Resuscitation Status: Full Code (Per patient wants to be full code but only once. If he loses CV function after ROSC he Wants to be let go Reports his AD are filed with the hospital.) Anesthesia Technique: General Anesthesia Airway Planned: Endotracheal Tube Pain Management: Surgeon and patient request nerve block Monitors Used: Standard Monitors and SedLine
[2024-07-27] MEDS: Lactated Ringers 1,000 ML 80 ML IV (09:15)
[2024-07-27] MEDS: ceFAZolin 2 GM/50 ML BAG IVPB (10:22)
--- NOTE | 2024-07-27 10:24 | W.ANESNERVE ---
Nerve Block Single Injection Procedure Date and Time Date Performed: 07/27/24 Procedure Start: 10:11 Location Where Procedure Performed Procedure Location: Operating Room Procedure Stop: 10:21 Reason Performed: Postoperative Analgesia Requesting Provider: Reilly Romero Timeout Performed Timeout Performed: Yes Monitoring Used ECG, Blood Pressure, SpO2 and ETCO2 Sterility Sterility: Hand Hygiene, Surgical Cap, Surgical Mask, Sterile Gloves and Chlorhexidine Sedation Given During Procedure Sedation Given (Indicate Dose Given): No Sedation given Patient Mental Status Patient Mental Status: Performed under general anesthesia Nerve Block 1st Nerve Block: Laterality: Right Block Type: TAP Unilateral (anterior) Ultrasound Image Saved?: Yes Needle / Catheter Used: 100mm SonoPlex II Local Anesthetic Bolus (Indicate Dose Given): Lidocaine used for local infiltration of skin, Injected in 3-5ml increments after negative blood aspiration, Bupivacaine 0.25% Dose:: 10 ml and Exparel Dose:: 10 ml Additives (Indicate Dose Given): Normal Saline (hydrodissection) Ultrasound: Sterile probe cover and gel used Nerve Stimulator: Not Used Paresthesia: None Procedure Tolerated: No Complications and Patient tolerated well Procedure Outcome: Successful Performed By: Umang Lombardi
[2024-07-27] MEDS: Bupivacaine 0.5% Pres-Free W/EPI 30 ML VIAL (10:56)
[2024-07-27] MEDS: HYDROmorphone 2 MG/ML SYR IVP (12:12)
[2024-07-27] MEDS: Normal Saline 10 ML VIAL IJ (12:12)
--- NOTE | 2024-07-27 14:49 | W.ANESPOSTOP ---
Postoperative Evaluation Date, Time and Location Date Performed: 07/27/24 Time Performed: 14:50 Patient Location: Day Surgery Unit Vital Signs Most Recent Imported Vital Signs: Most Recent Vital Signs Temp Pulse Resp BP Pulse Ox 36.2 C L 66 16 111/70 96 07/27/24 13:15 07/27/24 13:15 07/27/24 13:15 07/27/24 13:15 07/27/24 13:15 Pain Score Most Recent Pain Score: Most Recent Pain Score Pain Level 2 07/27/24 13:15 Assessment Mental Status: Awake (Alert & Oriented to Patient Baseline) Airway and Respiratory Function: Patent airway with normal (patient baseline) respiratory exam Cardiovascular Function: Hemodynamically Stable Hydration Status: Adequately Hydrated Nausea & Vomiting: No Nausea or Vomiting Pain: Pain is tolerable per patient Peripheral Nerve Block: Regional nerve block not resolved at time of post operative discharge Postoperative Comments:: Still has not urinated, DSU RN is monitoring.
== END 2024-07-27 15:15 | disposition home or self-care (01) ==
PROVIDERS: PCP Family Medicine; Visit Provider Surgery
PROC: (CPT 55540; principal; 2024-07-27 09:00)
DX: K40.90 Unilateral inguinal hernia, without obstruction or gangrene, not specified as recurrent (principal); I86.1 Scrotal varices
CPT/HCPCS: 55540; 76942; C1781; C9290; J0665; J0690; J1100; J1171; J2003; J2371; J2405; J2704; J3010

== ENCOUNTER → 2024-08-01 10:03 | Outpatient (BNVA) | payer MEDICARE, SELFPAY | PROVIDERS: PCP Family Medicine; Referring Provider Family Medicine; Visit Provider Physician Assistant Surgical | DX: R91.8 Other nonspecific abnormal finding of lung field (principal); Z72.0 Tobacco use; J98.4 Other disorders of lung | CPT/HCPCS: 99214 ==

== ENCOUNTER → 2024-08-09 10:48 | Outpatient (BNVA) | payer MEDICARE, SELFPAY | PROVIDERS: PCP Family Medicine; Referring Provider Family Medicine; Visit Provider Surgery | DX: Z48.817 Encounter for surgical aftercare following surgery on the skin and subcutaneous tissue (principal) ==

== ENCOUNTER 2024-08-29 18:03 | Emergency (ER) | payer MEDICARE, MEDICAID, SELFPAY ==
[2024-08-29] VITALS (36 sets, daily range): BP systolic 105–120; BP diastolic 15–70; PULSE 54–76; RESP 6–32; TEMP 36.8; O2SAT 93–98
--- NOTE | 2024-08-29 18:00 | RT.EKG_ITS ---
APPROVED REPORT Exam: Resting ECG Reason for Exam: chest pain Patient Location: E HR:70 bpm ECG Measurements Heart Rate 70 AXIS [place] 151 P 48 QRSd 86 QRS -3 QT 390 T 56 QTc 421 Conclusion Sinus rhythm...normal P axis, V-rate 60- [address] segment or T wave abnormalities to suggest occlusive [place]
[2024-08-29 18:38] LABS: Abs Immature Grans 0.04 10^3/uL (0.0-0.06); Absolute Basophil Count 0.05 10^3/uL (0.0-0.2); Absolute Lymphocyte Count 4.96 10^3/uL (1.2-3.4); Basophils % 0.4 %; Eosinophils % 0.8 %; HCT 45.3 % (40.0-50.0); HGB 14.9 g/dL (13.5-17.5); Immature Grans % 0.3 %; Lymphocytes % 41.7 %; MCH 28.1 pg (27.0-33.0); MCHC 32.9 % (32.0-36.0); MCV 86 fL (80-95); MPV 9.1 fL (8.0-11.0); Neutrophils % 51.8 %; Platelet Count 214 10^3/uL (130-400); RDW 15.6 % (11.8-14.1); RDW-SD 48.4 fL; WBC 11.89 10^3/uL (4.4-10.8)
[2024-08-29 18:40] LABS: Absolute Monocyte Count 0.59 10^3/uL (0.1-0.8); Absolute Neutrophil Count 6.16 10^3/uL (1.2-6.7)
--- NOTE | 2024-08-29 18:45 | W.ED.GENAD ---
Discharge Plan Disposition Patient Disposition: Home Condition: Good Discharge Details Clinical Impression: Chest pain Primary Care Provider: Brian Longo ED Provider: Poonam Keller Home Meds and New Rx's Prescriptions: Continued albuterol sulfate [ProAir HFA] 90 mcg/actuation HFA aerosol inhaler 2 puff Inhalation Q6H PRN PRN (Reason: bronchospasm) Qty: 1 3RF atorvastatin [Lipitor] 40 mg tablet 40 mg PO DAILY Qty: 90 3RF ezetimibe [Zetia] 10 mg tablet 10 mg PO DAILY Qty: 90 3RF pantoprazole 40 mg tablet,delayed release (DR/EC) 40 mg PO BID Qty: 180 3RF Trulance 3 mg tablet 3 mg PO DAILY Qty: 90 0RF sertraline 100 mg tablet 200 mg PO DAILY Qty: 180 3RF Rx Instructions: dose increase 04/19/21 dose increase 09/17/21 Linzess 72 mcg capsule 72 mcg PO QAM PRN (Reason: diarrhea) Qty: 90 3RF (DME) nebulizer and compressor [Comp-Air Elite Comp Neb System] 1 EACH device 1 ea Miscellaneous q 4 h prn Qty: 1 itraconazole 100 mg capsule 200 mg PO DAILY Qty: 60 4RF Patient Comments: 02/09/24: pt reports has not started taking this, waiting for insurance clearance. FS Rx Instructions: Take 2 tabs three times a day for three days, then take one tab a day acetaminophen 500 mg tablet 500 mg PO Q6H PRN (Reason: pain) Qty: 60 2RF Discharge Instructions Instructions: Chest Pain, Adult ED Additional Instructions: Your EKG, bloodwork, and CT scan are all reassuring. I am not sure what is causing your pain. Please make sure you followup with your primary care doctor as they may want to refer you for a stress test, monitoring tech, endoscopy, or other tests. Call your primary care doctor tomorrow to schedule an appointment for within the next 48 hours to follow up on your visit here. Return to the emergency department for new or worsening symptoms including new/different/worse chest pain, difficulty breathing, numbness/tingling/weakness, feeling like you are going to pass out, or if you have any other concerns. Referrals: Brian Longo MD [Primary Care Provider] - [facility] General Mode of arrival: ambulatory. Date/Time Provider Initiated Documentation: 08/29/24 18:14. Limitations to Documentation: no limitations. Information obtained by: patient. HPI Narrative: 49yo M with hx asthma, GERD, pancreatitis, known pulmonary blastomycosis, presenting for chest pain. Around noon began to have moderate to severe substernal chest pain which has been waxing and waning in severity. Pain is dull, burning, and worse with movement. While driving this evening both arms began to feel numb and tingly. No lightheadedness, shortness of breath, weakness. He has had similar symptoms in the past (chest pain with associated arm tingling/numbness) but no diagnosis has been given. Has not taken anything at home for pain. Otherwise in his usual state of health with no fevers, chills, rash, nausea, vomiting, lower abdominal pain, flank pain, or other concerns. Related Data Home Medications ?Medication ?Instructions ?Recorded ?Confirmed nebulizer and compressor (Comp-Air #1 ea 07/16/16 08/29/24 Elite Comp Neb System device) acetaminophen 500 mg tablet 500 mg PO Q6H PRN pain #60 tabs 06/23/23 08/29/24 albuterol sulfate 90 mcg/actuation 2 puff inhalation Q6H PRN PRN 01/19/24 08/29/24 aerosol inhaler (ProAir HFA) bronchospasm #1 inh atorvastatin 40 mg tablet (Lipitor) 40 mg PO DAILY #90 tabs 01/19/24 08/29/24 ezetimibe 10 mg tablet (Zetia) 10 mg PO DAILY #90 tab-caps 01/19/24 08/29/24 pantoprazole 40 mg tablet,delayed 40 mg PO BID #180 tab-caps 01/19/24 08/29/24 release plecanatide 3 mg tablet (Trulance) 3 mg PO DAILY constipation #90 tabs 01/19/24 08/29/24 sertraline 100 mg tablet 200 mg (2 x 100 mg) PO DAILY #180 01/19/24 08/29/24 tabs itraconazole 100 mg capsule 200 mg (2 x 100 mg) PO DAILY #60 02/08/24 08/29/24 caps linaclotide 72 mcg capsule 72 mcg PO QAM PRN diarrhea #90 caps 05/24/24 08/29/24 (Linzess) Previous Rx's ?Medication ?Instructions ?Recorded acetaminophen 500 mg tablet 500 mg PO Q6H PRN pain #60 tabs 06/23/23 albuterol sulfate 90 mcg/actuation 2 puff inhalation Q6H PRN PRN 01/19/24 aerosol inhaler (ProAir HFA) bronchospasm #1 inh atorvastatin 40 mg tablet (Lipitor) 40 mg PO DAILY #90 tabs 01/19/24 ezetimibe 10 mg tablet (Zetia) 10 mg PO DAILY #90 tab-caps 01/19/24 pantoprazole 40 mg tablet,delayed 40 mg PO BID #180 tab-caps 01/19/24 release plecanatide 3 mg tablet (Trulance) 3 mg PO DAILY constipation #90 tabs 01/19/24 sertraline 100 mg tablet 200 mg (2 x 100 mg) PO DAILY #180 01/19/24 tabs itraconazole 100 mg capsule 200 mg (2 x 100 mg) PO DAILY #60 02/08/24 caps linaclotide 72 mcg capsule 72 mcg PO QAM PRN diarrhea #90 caps 05/24/24 (Linzess) Allergies Allergy/AdvReac Type Severity Reaction Status Date / Time Fish Containing Products Allergy Intermediate hives Verified 08/29/24 18:09 aspirin AdvReac Intermediate epistaxis Verified 08/29/24 18:09 seafood Allergy Intermediate Hives Uncoded 08/29/24 18:09 hydrocodone-homatropine AdvReac Intermediate GI UPSET Uncoded 08/29/24 18:09 General Stated Complaint: Chest Pain DONG: 2 Review of Systems Narrative: see HPI Exam Narrative Exam Narrative: General: Alert, well appearing, well nourished, in no acute distress. Head: Normocephalic, atraumatic Neck: Trachea midline, ?Neck supple. ENT: ?MMM.? No oropharygeal lesions or exudate. Cardiac: ?RRR, no murmurs appreciated. Equal radial pulses bilaterally. Resp: No respiratory distress. CTAB. Abd: ?Soft, non-distended, nontender Extremities: ?No deformities.? No peripheral edema. Neuro: ? GCS 15.? PERRL.? EOMI.? Fluent speech, no dysarthria. Motor- 5/5 strength symmetric bilateral upper and lower extremities Sensation- ?Intact to light touch and symmetric multiple dermatomes including upper and lower extremities Coordination- No dysmetria on finger to nose Gait/station: ?Normal stance.? No truncal ataxia. Steady gait with equal normal steps CRANIAL NERVES: II: Pupils equal and reactive, III, IV, : EOM intact, no gaze preference or deviation, no nystagmus. V: normal sensation in V1, V2, and V3 segments bilaterally VII: no asymmetry, no nasolabial fold flattening VIII: normal hearing to speech IX, X: normal palatal elevation, no uvular deviation XI: 5/5 head turn and 5/5 shoulder shrug bilaterally XII: midline tongue protrusion Course Vital Signs Vital signs: Vital Signs Temperature 36.8 C 08/29/24 18:06 Pulse 67 08/29/24 18:06 Respiratory Rate 28 H 08/29/24 18:06 Blood Pressure 107/70 08/29/24 18:06 Pulse Oximetry 95 08/29/24 18:06 Temperature 36.8 C 08/29/24 18:06 Pulse 59 L 08/29/24 18:16 Pulse 64 08/29/24 18:20 Respiratory Rate 14 08/29/24 18:20 Respiratory Effort Normal, Non-Labored 08/29/24 18:20 Respiratory Depth Normal 08/29/24 18:20 Respiratory Pattern Normal 08/29/24 18:20 Blood Pressure 107/70 08/29/24 18:16 Blood Pressure Mean 80 08/29/24 18:16 Pulse Oximetry 97 08/29/24 18:20 Oxygen Delivery Method Room Air 08/29/24 18:06 Oxygen Flow Rate 0 08/29/24 18:06 Lab/Test Results Lab/Test Results: Laboratory Tests Range/Units 08/29/24 08/29/24 18:15 18:29 WBC (4.4-10.8) 10^3/uL 11.89 H RBC (4.36-5.78) 10^6/uL 5.30 Hgb (13.5-17.5) g/dL 14.9 Hct (40.0-50.0) % 45.3 MCV (80-95) fL 86 MCH (27.0-33.0) pg 28.1 MCHC (32.0-36.0) % 32.9 RDW (11.8-14.1) % 15.6 H Plt Count (130-400) 10^3/uL 214 MPV (8.0-11.0) fL 9.1 Immature Gran % % 0.3 Neutrophils % % 51.8 Lymphocytes % % 41.7 Monocytes % % 5.0 Eosinophils % % 0.8 Basophils % % 0.4 Nucleated RBC % (0.0-0.3) % 0.0 Absolute Neutrophils (1.2-6.7) 10^3/uL 6.16 Absolute Lymphocytes (1.2-3.4) 10^3/uL 4.96 H Absolute Monocytes (0.1-0.8) 10^3/uL 0.59 Absolute Eosinophils (0.0-0.7) 10^3/uL 0.10 Absolute Basophils (0.0-0.2) 10^3/uL 0.05 Lipase Cancelled Medical Decision Making 49yo M with hx asthma, GERD, pancreatitis, known pulmonary blastomycosis, presenting for chest pain. Pain has been constant for 5+ hours, dull/substernal/epigastric, waxing and waning in severity. Overall improving since onset. Also has bilateral arm 'numbness' which has happened before with similar episodes of chest pain; he does think he was breathing rapidly when this occurred. It is not currently present. Otherwise in his usual state of health. Ordered 325 of ASA on arrival. Tachypneic to 20's on arrival, vital signs otherwise reassuring. Normal physical and neurologic exam. -EKG NSR, appropriate intervals, no ST segment or T wave abnormalities to suggest occlusive UT. -Labs reviewed as below, CBC reassuring, CMP with no actionable abnormalities, lipase normal (unlikely pancreatitis), troponin negative x 3, BNP normal. Low-risk HEART score; would not further pursue ACS/trend troponin. -CTA chest independently reviewed, no clear dissection or large saddle embolus on my view, radiology read below -CT abd/pelvis independently reviewed, no obstruction or free fluid on my view, radiology read below. While reviewing records noted that aspirin charted as not given due to allergy (epistaxis), fortunately patient is not experiencing an acute cardiac event and so will not administer now. . With reassuring work thus far will try toradol and GI cocktail. On reassessment patient reports feeling somewhat better. Feels comfortable going home. Unclear etiology of symptoms however is appropriate for outpatient followup with PCP for further workup and management. Discharged home to followup with PCP. Discharge instructions and return precautions were reviewed with patient who verbalized understanding. All questions were answered and he is in full agreement with the plan. Imaging Data Radiologic Study: Imaging: CT Scan Radiologist's impression: CT chest: IMPRESSION: 1. No acute pulmonary emboli. 2. Mild bilateral upper and lower lobe bronchial wall thickening, compatible with reactive airway disease or bronchitis. CT abd/pelvis: IMPRESSION: No acute abdominal or pelvic abnormality. Lab Data Lab results reviewed: Yes I reviewed the patient's lab results. Labs: Laboratory Tests Range/Units 08/29/24 08/29/24 08/29/24 18:15 18:29 19:05 WBC (4.4-10.8) 10^3/uL 11.89 H RBC (4.36-5.78) 10^6/uL 5.30 Hgb (13.5-17.5) g/dL 14.9 Hct (40.0-50.0) % 45.3 MCV (80-95) fL 86 MCH (27.0-33.0) pg 28.1 MCHC (32.0-36.0) % 32.9 RDW (11.8-14.1) % 15.6 H Plt Count (130-400) 10^3/uL 214 MPV (8.0-11.0) fL 9.1 Immature Gran % % 0.3 Neutrophils % % 51.8 Lymphocytes % % 41.7 Monocytes % % 5.0 Eosinophils % % 0.8 Basophils % % 0.4 Nucleated RBC % (0.0-0.3) % 0.0 Absolute Neutrophils (1.2-6.7) 10^3/uL 6.16 Absolute Lymphocytes (1.2-3.4) 10^3/uL 4.96 H Absolute Monocytes (0.1-0.8) 10^3/uL 0.59 Absolute Eosinophils (0.0-0.7) 10^3/uL 0.10 Absolute Basophils (0.0-0.2) 10^3/uL 0.05 Sodium (136-145) mmol/L 143 Potassium (3.5-5.1) mmol/L 3.9 Chloride (98-107) mmol/L 107 Carbon Dioxide (21.0-32.0) mmol/L 26.8 Anion Gap (3-11) mmol/L 9.2 BUN (7-18) mg/dL 7 Creatinine (0.70-1.30) mg/dL 0.8 Est GFR (CKD-EPI 2020) (mL/min/1.73m2) 107.15 Glucose (74-106) mg/dL 117 H Calcium (8.5-10.1) mg/dL 8.6 Magnesium (1.8-2.4) mg/dL 1.9 Total Bilirubin (0.2-1.0) mg/dL 0.62 AST (15-37) U/L 25 ALT (16-63) U/L 45 Alkaline Phosphatase (46-116) U/L 136 H Troponin I (<or=76) ng/L 11 10 NT-Pro-B Natriuret Pep (<300) pg/mL 71 Total Protein (6.4-8.2) g/dL 6.9 Albumin (3.4-5.0) g/dL 3.6 Lipase (16-77) U/L 20 Cancelled Quality:SDOH Health Related Social Needs: No Data to Display PFSH All Active Problems (Updated 08/29/24 @ 22:13 by Poonam Kleler MD) Chest pain (Acute) Inguinal hernia (Acute) Dizziness (Acute) Pulmonary blastomycosis (Acute) Cavitary lesion of lung (Acute) Lung infiltrate on CT (Acute) Chronic leg pain (Acute) Productive cough (Acute) Infiltrate noted on imaging study (Acute) Imbalance (Acute) Conductive hearing loss, bilateral (Acute) Bilateral acute serous otitis media (Acute) Ankle pain (Acute) right, chronic Chest pain at rest (Acute) RADIATION DOWN HIS ARMS Cyst of skin (Acute) TOP OF LEFT FOOT-PAINFUL Tobacco use (Chronic) Viral warts (Acute) Burning sensation of feet (Acute) Acquired deformity of nail (Acute) s/p nail excision and matrix ablation 11/10/19 Scrotal lesion (Acute) Sebaceous cyst (Acute) Neck pain (Acute) Below-knee amputation of right lower extremity (Acute) Acute cholecystitis (Acute) Wart of hand (Acute) Loss of taste (Acute) Skin ulcer (Acute) S/P BKA (below knee amputation) (Acute) Sensorineural hearing loss (SNHL) of both ears (Acute) Chest pain (Acute) Abnormal flushing and sweating (Acute) Neck pain on left side (Acute) Continuous tobacco abuse (Chronic) Acute pancreatitis (Acute) COVID-19 (Acute) Chronic pancreatitis (Acute) s/p stenting [facility] [place] Prediabetes (Acute) Erectile dysfunction (Acute) Finger pain (Acute) Cold intolerance (Acute) Medical History (Updated 08/29/24 @ 22:13 by Poonam Keller MD) Acute on chronic pancreatitis Constipation due to opioid therapy Gastritis Insomnia Hyperglycemia Lipoma Sensorineural hearing loss of both ears Partial Achilles tendon tear left Ganglion cyst Neuropathy Anxiety Lung nodules Mood disorder deteriorated Migraine Hypoglycemia Depression with anxiety Callous ulcer REFERRED TO DERM 12/22/13 Asthma 09/15/12 Arthritis FOOT/ANKLE 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 Snowblowing injury causing partial amputation Surgical revision of amputation DOS: 08/31/18 Partial traumatic transphalangeal amputation of right ring finger Snowblowing injury causing partial amputation Surgical revision of amputation DOS: 08/31/18 tobacco abuse GERD (gastroesophageal reflux disease) Hyperlipidemia Low back pain associated with a spinal disorder other than radiculopathy or spinal stenosis Surgical History (Updated 07/28/24 @ 11:27 by Svetlana Jones) Hx of right inguinal hernia repair (~07/2024) Nail deformity S/P Excision: 02/25/2023 Hx of right BKA 11/21/21 [facility] [place] (Dr Murray) Postsurgical arthrodesis status (08/22/20) rt ankle Hx of arthroscopic knee surgery Tibial fracture S/P tibial nail fixation. 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 Brother Essential hypertension Grandfather Diabetes Alcohol abuse Grandfather Brain tumor Stroke Grandmother Diabetes Grandmother Heart disease Neoplasm Cervical cancer Stroke Family History Blood disorder Neoplasm Stomach,melanoma Social History Smoking/Tobacco Use Status: Current every day Tobacco Type: cigarettes Tobacco: How many years used: 30 Second Hand Exposure: Yes Counseling given: provider counseling Smoking risk assessment performed?: Yes Alcohol Intake: former Drug use: Never Substance use type: does not use Household members: spouse Housing: apartment Number of Children: 4 Communication Needs: Hard of Hearing Do you need help understanding health information?: Rarely Pets and animals: Yes Pets and animals: cat(s) and dog(s) Sexually active: No Do you think of yourself as: straight/heterosexual Current gender identity: female What is your relationship status?: How often do you talk on the phone with friends or family?: three or more times per week Do you belong to any clubs or organized social groups?: no Panel score (0-1 are the most socially isolated patients): 2 What type of physical activity do you participate in: walking, aerobic and swimming Duration: < 15 minutes/day Mariajose/Druze: No preference Special mariajose needs: No Seatbelt use: always Helmet use: No Drive intox or ride w/intox local [place] truck driver: No Do you feel safe at home: Yes Do you feel safe in your relationship?: Yes Additional Social history: [employer]
[2024-08-29 18:51] LABS: Magnesium 1.9 mg/dL (1.8-2.4)
[2024-08-29 19:03] LABS: ALT 45 U/L (16-63); AST 25 U/L (15-37); Albumin 3.6 g/dL (3.4-5.0); Alkaline Phosphatase 136 U/L (46-116); Anion Gap 9.2 mmol/L (3-11); BUN 7 mg/dL (7-18); Bilirubin, Total 0.62 mg/dL (0.2-1.0); CO2 26.8 mmol/L (21.0-32.0); CREATININE 0.8 mg/dL (0.70-1.30); Chloride 107 mmol/L (98-107); Estimated GFR 107.15 (mL/min/1.73m2); Glucose 117 mg/dL (74-106); Lipase 20 U/L (16-77); NT-proBNP 71 pg/mL (<300); Potassium 3.9 mmol/L (3.5-5.1); Sodium 143 mmol/L (136-145); Total Protein 6.9 g/dL (6.4-8.2); Troponin I 11 ng/L (<or=76)
[2024-08-29 19:08] LABS: Calcium 8.6 mg/dL (8.5-10.1)
[2024-08-29] MEDS: Omnipaque 350 MG/ML 100 ML BTL IJ (19:26)
[2024-08-29] MEDS: Normal Saline - Diluent 50 ML VIAL IJ (19:27)
--- NOTE | 2024-08-29 19:29 | DI.CT_ITS ---
Exam(s) CT THORAX CTA CT ABDOMEN PELVIS W EXAM: CT THORAX CTA CLINICAL HISTORY: substernal chest pain, bilateral arm numbness. TECHNIQUE: Imaging Protocol: Axial CT angiography was performed with multi-slice acquisition and mu lti-planar and/or 3D reconstructions. Computer aided detection (CAD) was utilized. CONTRAST MATERIAL: Intravenous: Omnipaque 350 Contrast volume:100 ml COMPARISON: CT CT CHEST WO from 07/25/[address] ABDOMEN PELVIS W from 08/29/2024 FINDINGS: CHEST: Pulmonary Arteries: No evidence of filling defects to suggest pulmonary emboli. Tracheobronchial tree: Mild wall thickening could indicate bronchitis. No bronchiectasis or mucus pl ugging. Mediastinum and Mary: No dominant adenopathy or fluid collection. Pulmonary parenchyma: Right lower lobe atelectasis and chronic infiltrate, unchanged from prior. Pos terior dependent changes. Pleura: No effusion. No pneumothorax. Heart: The heart is notdilated. No coronary artery calcifications are seen. Aorta: Thoracic aorta non-dilated. Bones: Unremarkable for age. Tubes, Catheters, and Lines: None. Soft tissues: Unremarkable. ABDOMEN and PELVIS: Liver: Normal size. Normal density. No suspicious measurable mass. Portal, Superior Mesenteric, and Splenic Veins: Unremarkable. Gallbladder and Biliary Tract: No s/p cholecystectomy. No biliary dilatation. Pancreas: Normal density, no abnormal calcifications or inflammatory process. Spleen: Normal. Adrenals: No masses seen. Kidneys: Normal size, contour and axis. No radiodense stones. No obstructive uropathy. No masses seen . Vasculature: Abdominal aorta non-dilated. Bowel: No obstruction or bowel wall thickening. Appendix is unremarkable. Moderate diverticulosis. Normal quantity of stool. Peritoneal Cavity: No ascites, collection or mesenteric inflammatory response. Lymph Nodes: Within normal limits. Soft Tissues: Right inguinal scarring related to inguinal hernia repair. Amount of fat in left ingui nal canal. Bladder: Symmetric distended but no wall thickening. Arm no calcification or focal mass. Reproductive Organs: Unremarkable as visualized. Bones: Degenerative changes. Hardware in lower lumbar spine. IMPRESSION: 1. No evidence of pulmonary embolism. Right lower lobe scarring versus chronic infiltrate. Mild bron chial wall thickening consistent with bronchitis. 2. No acute abdominal or pelvic process. RADIATION DOSE DELIVERED: 518.45mGy.cm Total DLP 518.45mGy.cm Total DLP DATA REPOSITORY: All CT scans at this facility are submitted to the National Radiology Data Registry (NRDR) Dose Index Registry (DIR) with the [employer] (ACR). RADIATION OPTIMIZATION: All CT scans at this facility use at least one of these dose optimization te chniques: automated exposure control; mA and/or kV adjustment per patient size (includes targeted exa ms where dose is matched to clinical indication); or iterative reconstruction.
[2024-08-29 19:36] LABS: Troponin I 10 ng/L (<or=76)
--- NOTE | 2024-08-29 20:46 | DI.VRAD_ITS ---
PROCEDURE INFORMATION: Exam: CTA Chest With Contrast Exam date and time: 08/29/2024 7:17 PM Age: 49 years old Clinical indication: Abdominal pain; Epigastric; Sternal or substernal pain TECHNIQUE: Imaging protocol: Computed tomographic angiography of the chest with contrast. Exam focused on the arteries. 3D rendering (Not supervised by radiologist): MIP and/or 3D reconstructed images were created by the technologist. Radiation optimization: All CT scans at this facility use at least one of these dose optimization techniques: automated exposure control; mA and/or kV adjustment per patient size (includes targeted exams where dose is matched to clinical indication); or iterative reconstruction. Contrast material: [id number]; Contrast volume: 100 ml; Contrast route: INTRAVENOUS (IV); COMPARISON: CT CHEST PE ABD PELVIS W 07/12/2022 11:17 PM FINDINGS: Pulmonary arteries: No acute pulmonary emboli. Aorta: Unremarkable. No aortic aneurysm. No aortic dissection. Lungs: Mild bilateral upper and lower lobe bronchial wall thickening, compatible with reactive airway disease or bronchitis. Areas of atelectasis and possible minimal chronic pneumonia within the right lower lobe. Mild left posterior basilar atelectasis. Pleural spaces: Unremarkable. No pneumothorax. No pleural effusion. Heart: Unremarkable. No cardiomegaly. No pericardial effusion. Lymph nodes: Unremarkable. No enlarged lymph nodes. Bones/joints: Unremarkable. No acute fracture. Soft tissues: Unremarkable. IMPRESSION: 1. No acute pulmonary emboli. 2. Mild bilateral upper and lower lobe bronchial wall thickening, compatible with reactive airway disease or bronchitis. Dictated and Authenticated by: Joesph Daniel MD. Ordering:SAIGE Levin MD
--- NOTE | 2024-08-29 20:48 | DI.VRAD_ITS ---
PROCEDURE INFORMATION: Exam: CT Abdomen And Pelvis With Contrast Exam date and time: 08/29/2024 7:17 PM Age: 49 years old Clinical indication: Abdominal pain; Prior surgery; Surgery date: 6+ months; Surgery type: Spinal screws; Patient HX: Epigastric pain, ? pancreatitis TECHNIQUE: Imaging protocol: Computed tomography of the abdomen and pelvis with contrast. Radiation optimization: All CT scans at this facility use at least one of these dose optimization techniques: automated exposure control; mA and/or kV adjustment per patient size (includes targeted exams where dose is matched to clinical indication); or iterative reconstruction. Contrast material: [id number]; Contrast volume: 100 ml; Contrast route: INTRAVENOUS (IV); COMPARISON: No relevant prior studies available. FINDINGS: Liver: Normal. Gallbladder and biliary ducts: Gallbladder surgically absent. Pancreas: Normal. Spleen: Normal. Adrenal glands: Normal. No mass. Kidneys and ureters: Normal. Stomach and bowel: Normal. Appendix: No evidence of appendicitis. Intraperitoneal space: Unremarkable. No free air. No significant fluid collection. Vasculature: Minimal atherosclerotic disease of the abdominal aorta and iliac arteries. Lymph nodes: Unremarkable. No enlarged lymph nodes. Urinary bladder: Mild urinary bladder distension. Reproductive: Small right hydrocele. Bones/joints: L3-L5 posterior fusion. Multilevel thoracolumbar spine degenerative disc disease. Soft tissues: Small fat containing left inguinal hernia, without acute complications. Surgical changes within the right inguinal region. IMPRESSION: No acute abdominal or pelvic abnormality. Dictated and Authenticated by: Joesph Daniel MD. Ordering:SAIGE Levin MD
[2024-08-29] MEDS: Ketorolac 15 MG/ML VIAL IM (21:32)
[2024-08-29 21:33] LABS: Troponin I 7 ng/L (<or=76)
== END 2024-08-29 22:24 | disposition home or self-care (01) ==
PROVIDERS: Emergency Provider Student in an Organized Health Care Education/Training Program; PCP Family Medicine
DX: R07.9 Chest pain, unspecified (principal); R10.13 Epigastric pain; R00.2 Palpitations; F17.210 Nicotine dependence, cigarettes, uncomplicated; B40.2 Pulmonary blastomycosis, unspecified; Z89.511 Acquired absence of right leg below knee
CPT/HCPCS: 36415; 71275; 80053; 83690; 93005; 99285; 74177; 83735; 83880; 84484; 85025; 93010; J1885; J3490

== ENCOUNTER 2024-10-27 21:12 | Emergency (ER) | payer MEDICARE, MEDICAID, SELFPAY ==
[2024-10-27 21:15] VITALS: BP 124/80; PULSE 81; RESP 22; TEMP 36.6; O2SAT 96
--- NOTE | 2024-10-27 21:15 | DI.RAD_ITS ---
Exam(s) XR CHEST 2V PA LATERAL EXAM: XR CHEST 2V PA LATERAL CLINICAL HISTORY: Cough, eval PNA TECHNIQUE: 2D digital imaging was performed of the chest. Two images were obtained. PA and lateral views were obtained. COMPARISON: CR XR CHEST 2V PA LATERAL from 01/26/[address] THORAX CTA from 08/29/2024 FINDINGS: MEDIASTINUM: Normal. HEART: Normal. PULMONARY VASCULATURE: Normal. LUNGS: There is scarring again seen in the right lower lobe. This was present on the CT scan of the chest from 08/29/2024. No focal consolidating infiltrates are seen. PLEURAL SPACE: No pleural effusion or pneumothorax. BONE:Within normal limits for the patient's age. There is a question of a fracture involving the lat eral aspect of the right 4th rib. OTHER FINDINGS:Normal. IMPRESSION: 1. Stable scarring in the right lower lobe. 2. No new focal consolidating infiltrates. 3. Question of a fracture involving the lateral aspect of the right 4th rib. Please correlate clinic ally. DATA REPOSITORY: RADIATION DOSE DELIVERED:
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
[2024-10-27 21:33] VITALS: PULSE 92; O2SAT 94
[2024-10-27] MEDS: Ondansetron O.D.T. 4 MG TABEF PO (21:33)
[2024-10-27] MEDS: Ondansetron 4 MG/2 ML VIAL IVP (22:11)
[2024-10-27 22:16] LABS: Abs Immature Grans 0.04 10^3/uL (0.0-0.06); Absolute Basophil Count 0.03 10^3/uL (0.0-0.2); Absolute Eosinophil Count 0.07 10^3/uL (0.0-0.7); Absolute Lymphocyte Count 3.94 10^3/uL (1.2-3.4); Absolute Monocyte Count 0.61 10^3/uL (0.1-0.8); Basophils % 0.3 %; Eosinophils % 0.6 %; HCT 43.5 % (40.0-50.0); HGB 14.4 g/dL (13.5-17.5); Immature Grans % 0.4 %; Lymphocytes % 34.6 %; MCHC 33.1 % (32.0-36.0); MCV 85 fL (80-95); MPV 9.4 fL (8.0-11.0); Monocytes % 5.4 %; Neutrophils % 58.7 %; Platelet Count 187 10^3/uL (130-400); RBC 5.14 10^6/uL (4.36-5.78); RDW 13.9 % (11.8-14.1); RDW-SD 43.2 fL; WBC 11.38 10^3/uL (4.4-10.8)
[2024-10-27 22:17] LABS: Absolute Neutrophil Count 6.68 10^3/uL (1.2-6.7)
[2024-10-27 22:26] LABS: COVID-19 PCR Negative (Negative); Influenza A PCR Negative (Negative); Influenza B PCR Negative (Negative); RSV PCR Negative (Negative)
[2024-10-27 22:28] LABS: Source Nasopharynx
[2024-10-27 22:33] LABS: ALT 24 U/L (16-63); AST 19 U/L (15-37); Albumin 3.7 g/dL (3.4-5.0); Alkaline Phosphatase 97 U/L (46-116); Anion Gap 9.4 mmol/L (3-11); BUN 5 mg/dL (7-18); CO2 28.6 mmol/L (21.0-32.0); CREATININE 0.8 mg/dL (0.70-1.30); Calcium 8.9 mg/dL (8.5-10.1); Chloride 104 mmol/L (98-107); Estimated GFR 107.15 (mL/min/1.73m2); Glucose 89 mg/dL (74-106); Lipase 12 U/L (<78); Magnesium 1.8 mg/dL (1.8-2.4); Potassium 3.6 mmol/L (3.5-5.1); Sodium 142 mmol/L (136-145)
--- NOTE | 2024-10-27 23:01 | DI.VRAD_ITS ---
PROCEDURE INFORMATION: Exam: XR Chest Exam date and time: 10/27/2024 9:49 PM Age: 49 years old Clinical indication: Cough; Additional info: Cough, eval pna TECHNIQUE: Imaging protocol: Radiologic exam of the chest. Views: 2 views. COMPARISON: CT THORAX CTA 08/29/2024 7:17 PM FINDINGS: Lungs: Stable linear scarring and/or atelectasis right lung lower lobe. Lungs otherwise clear. Pleural spaces: Unremarkable. No pleural effusion. No pneumothorax. Heart/Mediastinum: Unremarkable. No cardiomegaly. Bones/joints: Unremarkable. IMPRESSION: 1. No acute abnormality. 2. Stable linear scarring and/or atelectasis right lung lower lobe. Dictated and Authenticated by: Umang Huitron MD. Ordering:VERENA Ricks MD
[2024-10-27] MEDS: predniSONE 20 MG TAB 40 MG PO (23:16)
[2024-10-27] MEDS: Azithromycin 250 MG TAB 500 MG PO (23:16)
[2024-10-27] MEDS: Ondansetron O.D.T. 4 MG TABEF, 3 TABS/BTL PO (23:19)
[2024-10-27 23:20] VITALS: BP 111/44; PULSE 70; RESP 20; TEMP 36.5; O2SAT 99
== END 2024-10-27 23:20 | disposition home or self-care (01) ==
PROVIDERS: Emergency Provider Emergency Medicine; PCP Family Medicine
DX: J40 Bronchitis, not specified as acute or chronic (principal); J44.1 Chronic obstructive pulmonary disease with (acute) exacerbation; R91.8 Other nonspecific abnormal finding of lung field; E78.5 Hyperlipidemia, unspecified; F17.210 Nicotine dependence, cigarettes, uncomplicated; Z89.519 Acquired absence of unspecified leg below knee
CPT/HCPCS: 80053; 83690; 87637; 96374; 99284; 71046; 83735; 85025; J2405; J7512

== ENCOUNTER 2024-11-09 14:24 | Outpatient (CLI) | payer MEDICARE, MEDICAID, SELFPAY ==
--- NOTE | 2024-11-09 13:15 | DI.RAD_ITS ---
Exam(s) XR CHEST 2V PA LATERAL EXAM: XR CHEST 2V PA LATERAL CLINICAL HISTORY: eval pna R05.9 COUGH. TECHNIQUE: 2D digital imaging was performed. COMPARISON: CR XR CHEST 2V PA LATERAL from 03/25/2023 CR,XR XR PORTABLE CHEST AP from 10/29/2023 CR,XR XR CHEST 2V PA LATERAL from 01/03/[address] CHEST W from 01/06/2024 CR XR CHEST 2V PA LATERAL from 01/26/[address] CHEST WO from 04/01/[address] CHEST WO from 07/25/[address] THORAX CTA from 08/29/2024 CR,XR XR CHEST 2V PA LATERAL from 10/27/2024 FINDINGS: 2 views: There is a fusion plate in the lower cervical spine. Heart size is normal. The mediastinum is not widened. There is scarring in the right lower lobe which has occurred since the presence of partially cavity i nfiltrate at this location 1 year ago. Appearance of this scarring is quite similar to the CT scan of July 2024 and August 2024. There are no new infiltrates nor pleural effusions. No pulmonary edema. No pneumothorax. IMPRESSION: No acute pulmonary findings.Stable appearing scarring in the right lower lobe, this subsequent to a p rominent area of infiltrate which occurred 1 year ago, starting in October 2023. DATA REPOSITORY: RADIATION DOSE DELIVERED:
== END 2024-11-09 14:44 ==
LOC: DI 14:29
PROVIDERS: PCP Family Medicine; Visit Provider Nurse Practitioner Family
DX: R05.9 Cough, unspecified (principal)
CPT/HCPCS: 71046

== ENCOUNTER 2024-11-24 11:30 | Emergency (ER) | payer MEDICARE, MEDICAID, SELFPAY ==
[2024-11-24 11:33] VITALS: BP 106/57; PULSE 84; RESP 18; TEMP 36.9; O2SAT 97
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
[2024-11-24] MEDS: HYDROmorphone 2 MG/ML SYR 1 MG IVP (11:52)
[2024-11-24 13:36] VITALS: BP 148/72; PULSE 78; RESP 18; O2SAT 98
== END 2024-11-24 13:41 | disposition home or self-care (01) ==
PROVIDERS: Emergency Provider Emergency Medicine; PCP Family Medicine
DX: S30.0XXA Contusion of lower back and pelvis, initial encounter (principal); S20.223A Contusion of bilateral back wall of thorax, initial encounter; S16.1XXA Strain of muscle, fascia and tendon at neck level, initial encounter; S09.8XXA Other specified injuries of head, initial encounter; J44.9 Chronic obstructive pulmonary disease, unspecified; E78.5 Hyperlipidemia, unspecified; F17.210 Nicotine dependence, cigarettes, uncomplicated; Z98.1 Arthrodesis status; Z89.511 Acquired absence of right leg below knee; V47.5XXA Car driver injured in collision with fixed or stationary object in traffic accident, initial encounter
CPT/HCPCS: 99284; 70450; 72125; 72128; 72131; J1171

== ENCOUNTER 2024-12-02 00:15 | Outpatient (CLI) | payer MEDICARE, MEDICAID, SELFPAY ==
--- NOTE | 2024-12-02 06:19 | DI.CT_ITS ---
Exam(s) CT ABDOMEN PELVIS W EXAM: CT ABDOMEN PELVIS W CLINICAL HISTORY: recurrent pancreatitis,K86.1. TECHNIQUE: Imaging Protocol: Axial computed tomography images with coronal and sagittal reformatted images were created and reviewed CONTRAST MATERIAL: Intravenous: Omnipaque-350 70cc Oral: Yes. Oral contrast was also administered for bowel opacification. COMPARISON: CT CT ABDOMEN PELVIS W from 08/29/2024 FINDINGS: VISUALIZED LUNG BASES: Some scarring in the right lung base posterior basal segment is again noted. No pleural effusions.. ABDOMEN: There is no ascites. LIVER: There are no focal hepatic lesions evident. No dilated intrahepatic ducts. GALLBLADDER/BILIARY: The gallbladder is again noted be surgically absent. CBD is not dilated. PANCREAS: No evidence of pancreatic mass nor dilatation of the pancreatic duct. No CT evidence of ac madan pancreatitis. No pancreatic calcifications evident. SPLEEN: Spleen is not enlarged. No obvious intrasplenic lesions. Splenic and portal veins are paten t. ADRENALS: There are no significant adrenal masses. KIDNEYS:No cysts evident. No solid renal masses. No calculi nor hydronephrosis.. ABDOMINAL AORTA: Abdominal aorta is not enlarged. LYMPH NODES:There is no retroperitoneal nor paraaortic adenopathy. ABDOMINAL WALL: There is a fat only containing left inguinal hernia. There is a density again noted at level the right internal inguinal ring which is most probably related to prior right inguinal anabell ia surgery. The previously present postoperative subcutaneous streaking in this region of the right groin is no longer is evident. GI: There is no evidence of bowel obstruction, free air, nor abscess. The oral contrast has reached the distal small bowel by time of image acquisition. There is no evide nce of small-bowel obstruction. The colon is not collapsed. PELVIS: GI: Appendix is not seen and may be surgically absent.Colon is not collapsed. There is no colitis pa ttern. No evidence of significant sigmoid diverticular disease. LYMPH NODES: There is no intrapelvic nor inguinal adenopathy. REPRODUCTIVE: Prostate not enlarged. Seminal vesicles unremarkable. URINARY BLADDER: No calculi nor obvious masses evident OSSEOUS: No fractures and no significant osseous lesions. There is posterior fusion hardware in the lumbosacral spinal column. IMPRESSION: 1. No acute findings in the abdomen and pelvis. There is no CT evidence of acute nor chronic pancrea titis, as per request. No abnormal fluid collections nor ascites. 2. Previous cholecystectomy. The biliary tree is not dilated. 3. Evidence of previous right inguinal hernia repair. Small fat only containing left inguinal hernia . RADIATION DOSE DELIVERED: 390.64mGy.cm Total DLP DATA REPOSITORY: All CT scans at this facility are submitted to the National Radiology Data Registry (NRDR) Dose Index Registry (DIR) with the [employer] (ACR). RADIATION OPTIMIZATION: All CT scans at this facility use at least one of these dose optimization te chniques: automated exposure control; mA and/or kV adjustment per patient size (includes targeted exa ms where dose is matched to clinical indication); or iterative reconstruction.
[2024-12-02] MEDS: Barium Sulfate 2% W/V-Berry Smoothie 450 ML BTL PO ×2 (07:22→07:23)
[2024-12-02 07:28] LABS: CREATININE 0.9 mg/dL (0.70-1.30)
[2024-12-02] MEDS: Omnipaque 350 MG/ML 100 ML BTL IJ (08:58)
[2024-12-02] MEDS: Normal Saline - Diluent 50 ML VIAL IJ (08:58)
== END 2024-12-02 00:35 ==
PROVIDERS: PCP Family Medicine; Visit Provider Family Medicine
DX: K86.1 Other chronic pancreatitis (principal); Z98.890 Other specified postprocedural states
CPT/HCPCS: 74177; 82565; J3490

== ENCOUNTER 2025-06-06 10:59 | Outpatient (CLI) | payer MEDICARE, MEDICAID, SELFPAY ==
[2025-06-06 12:53] LABS: Calculated LDL 132 mg/dL (<100); Cholesterol 204 mg/dL (<200); HDL Cholesterol 38 mg/dL (>or=40); Triglyceride 173 mg/dL (<150)
[2025-06-06 19:22] LABS: PSA, Screening 1.2 ng/mL (<=3.5)
== END 2025-06-06 11:00 | disposition home or self-care (01) ==
LOC: LOS 10:59
PROVIDERS: PCP Family Medicine; Referring Provider Family Medicine; Visit Provider Family Medicine
DX: Z12.5 Encounter for screening for malignant neoplasm of prostate (principal); E78.5 Hyperlipidemia, unspecified; Z13.220 Encounter for screening for lipoid disorders
CPT/HCPCS: 36415; 80061; 84153

== ENCOUNTER 2025-06-08 16:12 | Outpatient (CLI) | payer MEDICARE, MEDICAID, SELFPAY ==
--- NOTE | 2025-06-08 13:30 | DI.US_ITS ---
Exam(s) US HERNIA EXAM: US HERNIA CLINICAL HISTORY: left inguinal/scrotal pain R10.32 LLQ PAIN. TECHNIQUE: Ultrasound was performed using standard protocol. COMPARISON: US POCUS EXAM from 07/27/[address] ABDOMEN PELVIS W from 12/02/2024 FINDINGS: Dedicated ultrasound examination of the left inguinal-groin region was performed. Submitted images reveal evidence of left inguinal hernia most prominent with Valsalva maneuver. Hernia sac measures approximately 2.3 x 1.1 cm. The hernia sac does not appear to contain obvious bowel loops. IMPRESSION: Left inguinal fat containing hernia as described above. DATA REPOSITORY:
== END 2025-06-08 16:32 ==
LOC: DI 16:12
PROVIDERS: PCP Family Medicine; Visit Provider Family Medicine
DX: K40.90 Unilateral inguinal hernia, without obstruction or gangrene, not specified as recurrent (principal); R10.32 Left lower quadrant pain
CPT/HCPCS: 76857

== ENCOUNTER 2025-06-27 10:05 | Outpatient (CLI) | payer MEDICARE, MEDICAID, SELFPAY ==
--- NOTE | 2025-06-27 10:00 | RT.EKG_ITS ---
APPROVED REPORT Exam: Resting ECG Reason for Exam: chest pain Patient Location: O HR:65 bpm ECG Measurements Heart Rate 65 AXIS WV 143 P 45 QRSd 90 QRS -19 QT 378 T 17 QTc 393 Conclusion Sinus rhythm...normal P axis, V-rate 50- 99
== END 2025-06-27 10:06 | disposition home or self-care (01) ==
LOC: DI.CM 10:05
PROVIDERS: PCP Family Medicine; Visit Provider Family Medicine
DX: R07.9 Chest pain, unspecified (principal)
CPT/HCPCS: 93010

== ENCOUNTER 2025-07-01 10:44 | Emergency (ER) | payer MEDICARE, MEDICAID, SELFPAY ==
[2025-07-01] VITALS (56 sets, daily range): BP systolic 56–179; BP diastolic 22–131; PULSE 48–172; RESP 7–90; O2SAT 77–100
--- NOTE | 2025-07-01 10:30 | RT.EKG_ITS ---
APPROVED REPORT Exam: Resting ECG Reason for Exam: chest pain Patient Location: E HR:63 bpm ECG Measurements Heart Rate 63 AXIS UT 141 P 10 QRSd 93 QRS 58 QT 413 T 22 QTc 422 Conclusion Sinus rhythm, rate 63 No interval abnormalities 1mm ST elevation V1-V2, <1mm ST elevation V3-4, no reciprocal changes but increased from prior, concern for ischemia
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
[2025-07-01] MEDS: Etomidate 20 MG/10 ML VIAL (11:01)
[2025-07-01] MEDS: Rocuronium 50 MG/5 ML SYR (11:02)
[2025-07-01] MEDS: fentaNYL 100 MCG/2 ML VIAL (11:10)
[2025-07-01] MEDS: PROPOFOL 1,000 MG/100 ML BTL 9.4 MG (11:12)
[2025-07-01 11:18] LABS: BE (Venous) 0 mmol/L (-2-3); HCO3 (Venous) 25 mmol/L (23-28); O2 Sat (Venous) 82 %; TCO2 (Venous) 22 mmol/L (24-29); pCO2 (Venous) 41 mmHg (41-51); pO2 (Venous) 45 mmHg
[2025-07-01 11:27] LABS: Abs Immature Grans 0.02 10^3/uL (0.0-0.06); HCT 48.8 % (40.0-50.0); HGB 16.0 g/dL (13.5-17.5); Immature Grans % 0.2 %; MCH 27.4 pg (27.0-33.0); MCHC 32.8 % (32.0-36.0); MCV 83 fL (80-95); MPV 10.2 fL (8.0-11.0); Platelet Count 246 10^3/uL (130-400); RBC 5.85 10^6/uL (4.36-5.78); RDW 14.5 % (11.8-14.1); RDW-SD 43.7 fL; WBC 10.01 10^3/uL (4.4-10.8)
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
[2025-07-01] MEDS: Norepinephrine in D5W 8 MG/250 ML BAG 9.5 MG IV (11:35)
[2025-07-01] MEDS: EPINEPHrine 1 MG/10 ML SYR IVP (11:40)
[2025-07-01 11:43] LABS: INR 1.0 (0.9-1.1); PTT Activated 22.6 sec (20.6-30.2); Prothrombin Time 10.4 sec (9.1-11.1)
[2025-07-01] MEDS: Tenecteplase 50 MG KIT 40 MG IVP (11:44)
[2025-07-01] MEDS: MAGNESIUM SULFATE 2 GM/50 ML BAG IV_INF (11:46)
[2025-07-01 11:50] LABS: D-Dimer 378 ng/mlFEU (<500)
[2025-07-01] MEDS: Heparin in 0.45% NaCl 25,000 UNIT/250 ML BAG 9.5 UNIT IVINF (11:54)
[2025-07-01] MEDS: Aspirin 300 MG SUPP PR (11:54)
[2025-07-01 11:55] LABS: ALT 32 U/L (16-63); AST 21 U/L (15-37); Albumin 4.2 g/dL (3.4-5.0); Alkaline Phosphatase 117 U/L (46-116); Anion Gap 12.3 mmol/L (3-11); BUN 8 mg/dL (7-18); Bilirubin, Total 1.3 mg/dL (0.2-1.0); CO2 26.7 mmol/L (21.0-32.0); Calcium 9.3 mg/dL (8.5-10.1); Chloride 101 mmol/L (98-107); Estimated GFR 103.40 (mL/min/1.73m2); Glucose 140 mg/dL (74-106); Magnesium 1.7 mg/dL (1.8-2.4); NT-proBNP 35 pg/mL (<300); Potassium 3.2 mmol/L (3.5-5.1); Sodium 140 mmol/L (136-145); Total Protein 7.7 g/dL (6.4-8.2); Troponin I 56 ng/L (<or=76)
[2025-07-01] MEDS: Amiodarone in Dextrose 360 MG/200 ML BAG 33.3 MG IV INF (12:23)
--- NOTE | 2025-07-01 13:18 | DI.VRAD_ITS ---
PROCEDURE INFORMATION: Exam: XR Chest Exam date and time: 07/01/2025 11:57 AM Age: 49 years old Clinical indication: Other: Cardiac arrest, cp, intubated TECHNIQUE: Imaging protocol: Radiologic exam of the chest. Views: 1 view. COMPARISON: CR XR CHEST 2V PA LATERAL 11/09/2024 1:42 PM FINDINGS: Tubes, catheters and devices: Endotracheal tube terminates 2 cm above the huyen. Enteric tube courses toward the stomach Lungs: Opacities throughout both lung gonzalez may represent atelectasis or pneumonia Pleural spaces: Unremarkable. No pleural effusion. No pneumothorax. Heart/Mediastinum: Unremarkable. No cardiomegaly. Bones/joints: Unremarkable. IMPRESSION: Opacities throughout both lung gonzlaez may represent atelectasis or pneumonia Dictated and Authenticated by: Mary Jane Valdivia MD. Orderin [facility]. Klever Betancourt MD
== END 2025-07-01 12:25 | disposition short-term general hospital (02) ==
PROVIDERS: Student in an Organized Health Care Education/Training Program; Emergency Provider Emergency Medicine; PCP Family Medicine
DX: I46.9 Cardiac arrest, cause unspecified (principal); I49.01 Ventricular fibrillation; E78.5 Hyperlipidemia, unspecified; F17.210 Nicotine dependence, cigarettes, uncomplicated; Z89.511 Acquired absence of right leg below knee; Z82.49 Family history of ischemic heart disease and other diseases of the circulatory system
CPT/HCPCS: 31500; 36556; 80053; 82805; 82962; 87637; 93005; 99291; 71045; 83735; 83880; 84484; 85025; 85379; 85610; 85730; 93010; J0282; J0283; J1644; J2704; J3010; J3101; J3475

== ENCOUNTER 2025-07-20 13:57 | Outpatient (CLI) | payer MEDICARE, MEDICAID, SELFPAY ==
--- NOTE | 2025-07-20 13:45 | RT.EKG_ITS ---
APPROVED REPORT Exam: Resting ECG Reason for Exam: [facility] Patient Location: O HR:65 bpm ECG Measurements Heart Rate 65 AXIS TX 157 P 40 QRSd 88 QRS -3 QT 402 T 153 QTc 418 Conclusion Sinus rhythm...normal P axis, V-rate 50- 99 Low voltage, extremity leads...all extremity leads <0.5mV Abnrm T, consider ischemia, anterolateral lds...T <-0.20mV, I aVL V2-V6
== END 2025-07-20 13:58 | disposition home or self-care (01) ==
LOC: DI.CM 13:58
PROVIDERS: PCP Family Medicine; Visit Provider Family Medicine
DX: R07.9 Chest pain, unspecified (principal)
CPT/HCPCS: 93010

== ENCOUNTER 2025-07-20 14:22 | Outpatient (CLI) | payer MEDICARE, MEDICAID, SELFPAY ==
[2025-07-20 16:26] LABS: Troponin I 20 ng/L (<or=76)
== END 2025-07-20 14:23 | disposition home or self-care (01) ==
LOC: LOS 14:23
PROVIDERS: PCP Family Medicine; Referring Provider Family Medicine; Visit Provider Family Medicine
DX: R07.9 Chest pain, unspecified (principal); R07.89 Other chest pain; F41.9 Anxiety disorder, unspecified; K59.00 Constipation, unspecified
CPT/HCPCS: 36415; 84484

== ENCOUNTER 2025-07-24 02:53 | Emergency (ER) | payer MEDICARE, MEDICAID, SELFPAY ==
[2025-07-24] VITALS (13 sets, daily range): BP systolic 100–136; BP diastolic 24–67; PULSE 54–66; RESP 13–21; TEMP 37.2; O2SAT 93–98
--- NOTE | 2025-07-24 03:15 | DI.CT_ITS ---
Exam(s) CT ABDOMEN PELVIS W EXAM: CT ABDOMEN PELVIS W CLINICAL HISTORY: diffuse abdominal tenderness, constipation TECHNIQUE: Imaging Protocol: Axial computed tomography images with coronal and sagittal reformatted images were created and reviewed. CONTRAST MATERIAL: Intravenous: Omnipaque 350 Contrast volume:75 mL Oral: No COMPARISON: CT CT ABDOMEN PELVIS W from 03/13/[address] CHEST WO from 04/01/[address] ABDOMEN PELVIS W from 08/29/[address] ABDOMEN PELVIS W from 12/02/2024 FINDINGS: The examination is limited due to patient motion artifact. ABDOMEN: Lung Bases: No acute abnormality. Stable left lower lobe pulmonary nodule. Liver: Normal density. No measurable mass. Portal, Superior Mesenteric, and Splenic Veins: Unremarkable. Gallbladder and Biliary Tract: Status post cholecystectomy. There is no significant biliary ductal dilatation. Pancreas: Normal density, no abnormal calcifications or inflammatory process. Spleen: Normal. Adrenals: No masses seen. Kidneys: Normal size, contour and axis. No radiodense stones or obstructive uropathy. No masses seen. Abdominal Aorta: Abdominal portion non-dilated. There is minimal atherosclerotic calcification. Bowel: No obstruction or bowel wall thickening. There is stool throughout the colon which can be seen with constipation. There is no evidence of appendicitis. Peritoneal Cavity: No ascites, collection or mesenteric inflammatory response. No free air. Lymph Nodes: Within normal limits. Bones: Within normal limits for the patient's age. There are subacute healing fractures involving the anterior aspect of the right 5th, 6th and 7th ribs. There is again seen posterior spinal surgery at the lumbosacral junction. Soft Tissues: The patient has had a prior right inguinal hernia repair. There is a small fat containing left inguinal hernia. There is a very small fat containing umbilical hernia. PELVIS: Bladder: Symmetric distention, no gross wall thickening. Reproductive Organs: Unremarkable as visualized. Lymph Nodes: Within normal limits. Bones: Within normal limits for the patient's age. IMPRESSION: 1. No acute abdominal or pelvic process. 2. There is stool throughout the colon which can be seen with constipation. 3. Subacute healing fractures involving the anterior aspect of the right 5th, 6th and 7th ribs. 4. The preliminary [facility] report was reviewed. RADIATION DOSE DELIVERED: 349.15mGy.cm Total DLP DATA REPOSITORY: All CT scans at this facility are submitted to the National Radiology Data Registry (NRDR) Dose Index Registry (DIR) with the [employer] (ACR). RADIATION OPTIMIZATION: All CT scans at this facility use at least one of these dose optimization techniques: automated exposure control; mA and/or kV adjustment per patient size (includes targeted exams where dose is matched to clinical indication); or iterative reconstruction.
--- NOTE | 2025-07-24 03:15 | RT.EKG_ITS ---
APPROVED REPORT Exam: Resting ECG Reason for Exam: medical clearance Patient Location: E HR:60 bpm ECG Measurements Heart Rate 60 AXIS UT 164 P 39 QRSd 93 QRS -10 QT 396 T [id number] QTc 398 Conclusion Sinus rhythm...normal P axis, V-rate 60- 99 Nonspecific T abnrm, anterolateral leads...T <-0.10mV, I aVL V2-V6 no ST segment or wave abnormalities to suggest occlusive MT, no concerning changes from prior 07/20/25
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
[2025-07-24 03:42] LABS: Abs Immature Grans 0.03 10^3/uL (0.0-0.06); HCT 44.7 % (40.0-50.0); HGB 14.5 g/dL (13.5-17.5); Immature Grans % 0.3 %; MCH 27.7 pg (27.0-33.0); MCHC 32.4 % (32.0-36.0); MCV 86 fL (80-95); MPV 9.3 fL (8.0-11.0); Platelet Count 227 10^3/uL (130-400); RBC 5.23 10^6/uL (4.36-5.78); RDW 14.4 % (11.8-14.1); RDW-SD 44.9 fL; WBC 9.06 10^3/uL (4.4-10.8)
[2025-07-24] MEDS: Normal Saline Flush 10 ML SYR IVP (03:46)
[2025-07-24] MEDS: Omnipaque 350 MG/ML 100 ML BTL IJ (03:46)
[2025-07-24] MEDS: Normal Saline - Diluent 50 ML VIAL IJ (03:46)
[2025-07-24 03:55] LABS: Lipase 15 U/L (<78)
[2025-07-24 04:00] LABS: Glucose 500 mg/dL (Negative)
[2025-07-24 04:00] LABS: ALT 55 U/L (16-63); AST 33 U/L (15-37); Albumin 3.9 g/dL (3.4-5.0); Alkaline Phosphatase 144 U/L (46-116); Anion Gap 7.5 mmol/L (3-11); BUN 11 mg/dL (7-18); Bilirubin, Total 0.7 mg/dL (0.2-1.0); CO2 31.5 mmol/L (21.0-32.0); Calcium 8.9 mg/dL (8.5-10.1); Chloride 102 mmol/L (98-107); Estimated GFR 90.56 (mL/min/1.73m2); Glucose 134 mg/dL (74-106); Magnesium 2.3 mg/dL (1.8-2.4); Potassium 3.9 mmol/L (3.5-5.1); Sodium 141 mmol/L (136-145); Total Protein 7.1 g/dL (6.4-8.2)
--- NOTE | 2025-07-24 04:24 | DI.VRAD_ITS ---
Addendum created by David Antonio MD on 07/24/2025 4:39:29 AM EDT: There is a voice-recognition error in the associated report. The 1st IMPRESSION should read: NO acute bowel pathology demonstrated. Initial report created on 07/24/2025 4:24:14 AM EDT: PROCEDURE INFORMATION: Exam: CT Abdomen And Pelvis With Contrast Exam date and time: 07/24/2025 3:46 AM Age: 50 years old Clinical indication: Abdominal pain; Other: Diffuse abd tenderness; Prior surgery; Surgery date: 6+ months; Surgery type: Back surgery; Diffuse abdominal tenderness, constipation TECHNIQUE: Imaging protocol: Computed tomography of the abdomen and pelvis with contrast. Radiation optimization: All CT scans at this facility use at least one of these dose optimization techniques: automated exposure control; mA and/or kV adjustment per patient size (includes targeted exams where dose is matched to clinical indication); or iterative reconstruction. Contrast material: OMNIPAQUE 350; Contrast volume: 75 ml; Contrast route: INTRAVENOUS (IV); COMPARISON: CT ABDOMEN PELVIS W 12/02/2024 9:02 AM FINDINGS: Lungs: Platelike atelectasis at the right lung base. Liver: Normal appearing liver. Gallbladder and biliary ducts: Prior cholecystectomy with mild postop biliary prominence. Pancreas: Normal appearing pancreas. Spleen: Normal appearing spleen. Adrenal glands: Normal appearing adrenal glands. Kidneys and ureters: Normal appearing kidneys. No hydronephrosis. No obstructing ureteral stones. Stomach and bowel: No oral contrast. Stomach partially decompressed. No small bowel dilatation to suggest obstruction. Fluid and fecal material in the cecum and ascending colon. Normal-appearing fecal material throughout the downstream colon and rectum. No evidence of diverticulitis or colitis. Appendix: Normal diminutive appendix versus a mimicking small vascular structure. No gross pericecal inflammatory change. Intraperitoneal space: No gross ascites or free air. Vasculature: Normal caliber abdominal aorta. Lymph nodes: No pathologically enlarged mesenteric, retroperitoneal, or pelvic sidewall lymph nodes. Urinary bladder: Urinary bladder partially collapsed but grossly unremarkable, as seen. Reproductive: Normal-appearing prostate gland and seminal vesicles. Bones/joints: No acute fracture seen among the bones of the abdomen or pelvis. Subacute fractures through the anterolateral aspect of the right 6th and 7th ribs with bony callus formation but incomplete bony union. Suspected subacute fracture partially visualized at C5 above as well. Prominent discogenic degeneration at L1-L2 and L2-L3. Prior lumbar surgery with posterior decompression and L3-L5 fusion. Extensive streak artifact created by the surgical fixation hardware. Soft tissues: Small fat containing left inguinal region hernia.Tiny fat-containing ventral hernia at the umbilicus, doubtful clinical significance. IMPRESSION: 1. Acute bowel pathology demonstrated. 2. Fluid and fecal material in the cecum and ascending colon. Moderate retained fecal material throughout the downstream colon and rectum. Dictated and Authenticated by: David Antonio MD. Orderin Arianna Levin MD
== END 2025-07-24 05:14 | disposition home or self-care (01) ==
PROVIDERS: Emergency Provider Student in an Organized Health Care Education/Training Program; PCP Family Medicine
DX: K59.00 Constipation, unspecified (principal); R10.9 Unspecified abdominal pain
CPT/HCPCS: 36415; 80053; 83690; 93005; 99285; 74177; 81003; 83735; 85025; 93010; 99283; J3490

== ENCOUNTER 2025-07-28 11:11 | Outpatient (CLI) | payer MEDICARE, MEDICAID, SELFPAY ==
--- NOTE | 2025-07-28 11:00 | RT.EKG_ITS ---
APPROVED REPORT Exam: Resting ECG Reason for Exam: NPW baseline needed Patient Location: O HR:59 bpm ECG Measurements Heart Rate 59 AXIS TX 148 P 46 QRSd 92 QRS -28 QT 427 T 29 QTc 423 Conclusion Sinus rhythm...normal P axis, V-rate 50- 99 Borderline left axis deviation...QRS axis (-15,-29) Abnrm T, consider ischemia, anterolateral lds...T <-0.20mV, I aVL V2-V6 Late transition
== END 2025-07-28 11:12 | disposition home or self-care (01) ==
LOC: DI.CARD 11:14
PROVIDERS: PCP Family Medicine; Referring Provider Family Medicine; Visit Provider Internal Medicine Cardiovascular Disease
DX: R07.9 Chest pain, unspecified (principal); I21.3 ST elevation (STEMI) myocardial infarction of unspecified site; I46.9 Cardiac arrest, cause unspecified; I49.01 Ventricular fibrillation
CPT/HCPCS: 93010

== ENCOUNTER → 2025-07-28 11:11 | Outpatient (BNVA) | payer MEDICARE, MEDICAID, SELFPAY | PROVIDERS: PCP Family Medicine; Referring Provider Family Medicine; Visit Provider Internal Medicine Cardiovascular Disease | DX: I21.02 ST elevation (STEMI) myocardial infarction involving left anterior descending coronary artery (principal); I25.5 Ischemic cardiomyopathy; I46.9 Cardiac arrest, cause unspecified; I49.01 Ventricular fibrillation; R07.9 Chest pain, unspecified | CPT/HCPCS: 99214; 93005 ==

== ENCOUNTER 2025-07-31 12:24 | Outpatient (RCR) | payer MEDICARE, MEDICAID, SELFPAY | END 2025-08-18 23:59 | disposition home or self-care (01) | LOC: CR 12:24 | PROVIDERS: PCP Family Medicine; Visit Provider Internal Medicine Cardiovascular Disease | DX: I50.9 Heart failure, unspecified (principal); I21.29 ST elevation (STEMI) myocardial infarction involving other sites; Z51.89 Encounter for other specified aftercare | CPT/HCPCS: S9472 ==

== ENCOUNTER 2025-08-24 09:46 | Emergency (ER) | payer MEDICARE, MEDICAID, SELFPAY ==
[2025-08-24] VITALS (32 sets, daily range): BP systolic 73–125; BP diastolic 13–110; PULSE 51–68; RESP 12–25; O2SAT 94–98
--- NOTE | 2025-08-24 09:45 | RT.EKG_ITS ---
APPROVED REPORT Exam: Resting ECG Reason for Exam: Chest Pain Patient Location: E HR:66 bpm ECG Measurements Heart Rate 66 AXIS SD 152 P 46 QRSd 91 QRS -27 QT 364 T 16 QTc 382 Conclusion Sinus rhythm...normal P axis, V-rate 60- 99 Physician: Unchanged, No STEMI
[2025-08-24 10:22] LABS: Abs Immature Grans 0.03 10^3/uL (0.0-0.06); HCT 48.0 % (40.0-50.0); HGB 15.5 g/dL (13.5-17.5); Immature Grans % 0.3 %; MCH 27.7 pg (27.0-33.0); MCHC 32.3 % (32.0-36.0); MCV 86 fL (80-95); MPV 9.4 fL (8.0-11.0); Platelet Count 255 10^3/uL (130-400); RBC 5.59 10^6/uL (4.36-5.78); RDW 14.5 % (11.8-14.1); RDW-SD 45.3 fL; WBC 8.60 10^3/uL (4.4-10.8)
--- NOTE | 2025-08-24 10:30 | DI.CT_ITS ---
Exam(s) CT CHEST PE CTA EXAM: CT CHEST PE CTA CLINICAL HISTORY: chest pain, recent NE. TECHNIQUE: Imaging Protocol: Axial CT angiography was performed with multi- slice acquisition and multi-planar and/or 3D reconstructions. Lung Computer Aided Detection (CAD) was utilized. CONTRAST MATERIAL: Intravenous: Omnipaque 350 contrast volume:100 mL COMPARISON: CT CT CHEST W from 01/06/[address] CHEST WO from 04/01/[address] CHEST WO from 07/25/[address] ABDOMEN PELVIS W from 08/29/[address] THORAX CTA from 08/29/[address] ABDOMEN PELVIS W from 12/02/[address] ABDOMEN PELVIS W from 07/24/2025 FINDINGS: Tracheobronchial tree: Patent where visualized. No bronchiectasis. Pulmonary parenchyma: There is a stable left lower lobe pulmonary nodule. There are no new or suspicious nodules present. There is stable scarring in the right lower lobe. There are no focal consolidating infiltrates present. There are stable nodules associated with the right minor fissure. Pulmonary Arteries: No evidence of filling defect to suggest pulmonary emboli. Mediastinum and Mary: No dominant adenopathy or fluid collection. The esophagus is unremarkable. Visualized thyroid gland: Unremarkable. Pleura: No effusion or pneumothorax. Heart: The heart is not dilated. Coronary artery calcification and stents are present. No pericardial effusion. Aorta: Thoracic aorta non-dilated. Upper abdomen: Status post cholecystectomy. Soft tissues: Unremarkable. Bones: Within normal limits for the patient's age.There again seen healing right rib fractures. IMPRESSION: 1. There is no evidence of a pulmonary embolism or thoracic aortic aneurysm. 2. Healing subacute right rib fractures are again seen. 3. No acute pulmonary process. RADIATION DOSE DELIVERED: 93.9mGy.cm Total DLP DATA REPOSITORY: All CT scans at this facility are submitted to the National Radiology Data Registry (NRDR) Dose Index Registry (DIR) with the [employer] (ACR). RADIATION OPTIMIZATION: All CT scans at this facility use at least one of these dose optimization techniques: automated exposure control; mA and/or kV adjustment per patient size (includes targeted exams where dose is matched to clinical indication); or iterative reconstruction.
[2025-08-24 10:34] LABS: Glucose 500 mg/dL (Negative)
[2025-08-24 10:44] LABS: ALT 47 U/L (16-63); AST 22 U/L (15-37); Albumin 3.9 g/dL (3.4-5.0); Alkaline Phosphatase 154 U/L (46-116); Anion Gap 8.4 mmol/L (3-11); BUN 16 mg/dL (7-18); Bilirubin, Total 0.8 mg/dL (0.2-1.0); CO2 27.6 mmol/L (21.0-32.0); Calcium 8.8 mg/dL (8.5-10.1); Chloride 102 mmol/L (98-107); Glucose 172 mg/dL (74-106); Lipase 19 U/L (<78); Potassium 4.1 mmol/L (3.5-5.1); Sodium 138 mmol/L (136-145); Total Protein 7.5 g/dL (6.4-8.2); Troponin I 9 ng/L (<or=76)
[2025-08-24] MEDS: Normal Saline 500 ML 250 ML IV (10:50)
[2025-08-24 11:14] LABS: Troponin I 8 ng/L (<or=76)
[2025-08-24 11:42] LABS: Magnesium 2.0 mg/dL (1.8-2.4)
[2025-08-24] MEDS: Normal Saline Flush 10 ML SYR IVP (12:49)
[2025-08-24] MEDS: Omnipaque 350 MG/ML 500 ML BTL-Imaging package IJ (12:49)
[2025-08-24] MEDS: Normal Saline - Diluent 50 ML VIAL IJ (12:49)
[2025-08-24 13:30] LABS: Troponin I 9 ng/L (<or=76)
[2025-08-24 14:36] LABS: Lab Add On Test DONE
[2025-08-24 14:42] LABS: ESR 7 mm/hr (0-20)
[2025-08-24 14:51] LABS: C-Reactive Protein < 0.50 mg/dL (<or=0.5)
--- NOTE | 2025-08-24 14:59 | DI.US_ITS ---
APPROVED REPORT EXAM: Comprehensive 2D, Doppler, and color-flow Echocardiogram Patient Location: ER Room/Bed: 1 Supervisor Scrap Preparation: Klaudia Sexton RDCS (AE) Indications: Post cath with chest pain Other Information Study Quality: Adequate. Technically limited study due to eam done bedside ER. Conclusion Normal left ventricular wall thickness and chamber size. Ejection fraction is 50%. There are no segmental wall motion abnormalities Normal right ventricular size and function Both atria are normal in size There is no structural or hemodynamically significant valvular disease There is no pericardial effusion Wall motion Left Ventricle The left ventricle is normal size. Left ventricular systolic function is borderline. There is normal left ventricular wall thickness. There is mild global hypokinesis of the left ventricle. There is no ventricular septal defect visualized. LVEF is 50%. Right Ventricle The right ventricle is normal size. The right ventricular systolic function is normal. Atria The left atrium size is normal. The right atrium size is normal. The interatrial septum is intact with no evidence for an atrial septal defect. Aortic Valve The aortic valve is normal in structure. Aortic valve is trileaflet. There is no aortic valvular stenosis. No aortic regurgitation is present. Mitral Valve The mitral valve is normal in structure. No evidence of mitral valve stenosis. Trace mitral regurgitation. Tricuspid Valve The tricuspid valve is normal in structure. There is no tricuspid valve stenosis. Trace tricuspid regurgitation. Unable to assess PA pressure. Pulmonic Valve The pulmonary valve is normal in structure. There is no pulmonic valvular stenosis. There is no pulmonic valvular regurgitation. Great Vessels The aortic root is normal in size. The ascending aorta is normal in size. Aortic arch is normal in caliber. IVC is normal in size and collapses >50% with inspiration. Pericardium There is no pericardial effusion. 2D Dimensions IVSD d PLAX 0.90 cm M: 0.6-1.2 Ao Root d 3.11 cm M: 3.1 - 3.7 LVPW d PLAX 0.90 cm M: 0.6 - 1.2 Ao Asc Diam d 2.95 cm M: 2.6 - 3.4 LVID d PLAX 5.02 cm M: 4.2 - 5.8 LVDs 3.73 cm M: 2.5 - 4.0 LV EF Teichholz 50.3 % FS 25.69 % LV EDV (Teich) 119.6 mL LV ESV (Teich) 59.4 mL M-Mode TAPSE 1.96 cm (M/F) >1.7 Auto EF LV EDV A4C 127.9 mL LV EDV A2C 123.0 mL LV EDV BP 132.6 mL LV ESV A4C 61.1 mL LV ESV A2C 61.4 mL LV ESV BP 62.2 mL LVEF(%) A4C 52.2 % LVEF(%) A2C 50.1 % LVEF(%) BP 53.1 % LV SV A4C 66.8 ml LV SV A2C 61.7 ml LV SV BP 70.3 ml LV CO A4C 3.7 L/min LV CO A2C 3.4 L/min LV CO BP 3.5 L/min HR A4C 54.71 BPM HR A2C 55.54 BPM LV EDV Index (BP) LA Volume LA Length A4C 5.1 cm LA Length A2C 4.0 cm LA Area A4C s 16.05 cm2 LA Area A2C s 14.12 cm2 LA Vol A4C A-L 42.60 mL LA Vol A2C A-L 42.02 mL LA Vol Biplane A-L 47.8 mL LA Vol/BSA A4C A-L LA Vol/BSA A2C A-L LA Vol/BSA BP A-L 24.5 mL/m2 LA Vol A4C MOD 38.7 mL LA Vol A2C MOD 38.9 mL LA Vol BP MOD 43.7 mL RA Volume RA Area A4C 12.9 cm2 RA ESV A4C (A-L) 31.9mL RA Vol/BSA A4C A-L RA Length A4C 4.4 cm RA ESV A4C (MOD) 29.9mL LV Diastology MV E' medial 0.079 (>0.07 m/s) MV E Vmax 0.53 (0.4-1.3 m/s) MV E/E' MED 6.69 (<14) MV A Vmax 0.45 (0.4-1.3 m/s) MV E' lateral 0.122 (>0.1 m/s) E/A Ratio 1.2 MV E/E' LAT 4.30 (<14) MV E' Average 0.100 m/s MV E/E'(average) 5.23 Aortic Valve AoV Vmax 1.24 m/s LVOT Vmax 1.13 m/s AoV Peak Grad 6.2 mmHg LVOT Peak Grad 5.1 mmHg AoV Area (Vmax) 2.47 cm2 LVOT VTI 0.228 m AoV VTI 0.260 m LVOT Mean Grad 2.7 mmHg AoV Mean Mars. 0.89 m/s LVOT SV 62.07 mL AoV Mean Grad 3.6 mmHg LVOT Diam s 1.85 cm AoV Area (VTI) 2.38 cm2 AV Regurg Peak Gr. 6.15 mmHg Velocity Ratio 0.91 Mitral Valve MV DT 214 (160-240 msec) MV Vmax TIPS 0.58 m/s MV Mean Grad 0.6 (<2mmHg) MV VTI 0.285 m Pulmonary Valve PV Vmax 1.06 (0.5-1.5 m/s) RVOT Vmax 0.59 m/s PV Peak Grad 4.5 mmHg RVOT Peak Gr. 1.4 mmHg PV Mean Mars 0.69 m/s RVOT VTI 0.141 m PV Mean Grad 2.2 mmHg RVOT Mean Gr. 0.8 mmHg Tricuspid Valve RA Pressure 3.00 mmHg TV S' 0.11 m/s
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
== END 2025-08-24 17:03 | disposition home or self-care (01) ==
PROVIDERS: Physician Assistant; Emergency Provider Physician Assistant; PCP Family Medicine
DX: R07.9 Chest pain, unspecified (principal); R11.0 Nausea; Z95.5 Presence of coronary angioplasty implant and graft; Z60.8 Other problems related to social environment
CPT/HCPCS: 36415; 71275; 80053; 83690; 85652; 93005; 93306; 96360; 96361; 99285; 81003; 83735; 83880; 84484; 85025; 86140; 93010; 99284